=== PATIENT | female | born 1935 | race Caucasian/White ===

== ENCOUNTER 2017-05-19 14:51 | Inpatient (IN) | payer MEDICARE ==
[2017-05-19 14:51] VITALS: BMI 22.8
[2017-05-19] MEDS ORDERED: Sodium Chloride 0.9% 500 ML IV STA ×2 (15:34→17:21)
[2017-05-19] MEDS ORDERED: Albuterol-Ipratrop 3 mg / 0.5 (3 ml) UD IH STA ×2 (15:36→15:37)
--- NOTE | 2017-05-19 15:41 | ED PDOC ---
HPI: General Adult Time Seen by Provider: 05/19/17 15:24 Chief Complaint (Nursing): Abdominal Pain Chief Complaint (Provider): generalized weakness History Per: Patient, Family (son ) History/Exam Limitations: no limitations Onset/Duration Of Symptoms: Days (x 3) Additional History Per: Patient Additional Complaint(s): Katey Reeves is a 82 year old female, with an extensive previous medical history including CAD, COPD, CHF, hypertension and constipation, presents to the ED with complaints of generalized weakness associated with decreased appetite and bilateral leg swelling ongoing for 3 days. Son reports patient complaining of upper abdominal pain which started this morning and she reports has since resolved. She denies any chest pain, congestion, cough, diarrhea, vomiting, history of stroke, history of heart attacks, fever, chills, headache or new shortness of breath. Last bowel movement was reported to be 2 days ago. PMD: Dr. Burleson Past Medical History Reviewed: Historical Data, Nursing Documentation, Vital Signs Vital Signs: Last Vital Signs Temp 98.6 F 05/19/17 14:59 Pulse 79 05/19/17 17:10 Resp 18 05/19/17 17:10 BP 101/46 L 05/19/17 17:10 Pulse Ox 92 L 05/19/17 17:25 - Medical History PMH: Anemia, Anxiety, Arthritis, Asthma, CAD (with stenting), CHF, COPD, Depression, Diabetes, Emphysema, Gastritis, HTN, Hypothyroidism, Pneumonia, Rheumatoid Arthritis Denies: HIV, Hypercholesterolemia, Chronic Kidney Disease, Seizures - Surgical History Surgical History: Appendectomy - Family History Family History: States: Unknown Family Hx - Living Arrangements Living Arrangements: With Family - Social History Current smoker - smoking cessation education provided: No Alcohol: None Drugs: Denies - Home Medications Home Medications: Ambulatory Orders Medication Instructions Recorded Acetaminophen [Tylenol 325mg tab] 650 mg PO Q6 PRN #0 tab 05/21/16 Albuterol 0.083% [Albuterol 0.083% 2.5 mg INH Q4H PRN #0 neb 05/21/16 Inhal Ro (2.5 mg/3 ml) UD] Albuterol/Ipratropium [Duoneb 3 3 ml IH Q6H #0 neb 05/21/16 mg/0.5 mg (3 ml) UD] Albuterol/Ipratropium [Duoneb 3 3 ml INH RQID #0 neb 05/21/16 mg/0.5 mg (3 ml) UD] Docusate [Colace] 100 mg PO HS #0 cap 05/21/16 Doxazosin [Cardura] 8 mg PO HS #0 tab 05/21/16 Doxycycline Hyclate 100 mg PO Q12 #0 tablet 05/21/16 Fluticasone Propionate [Flonase] 1 spr MILAGROS BID #0 bottle 05/21/16 Furosemide [Lasix] 20 mg PO DAILY #0 tab 05/21/16 GlipiZIDE SR [Glucotrol XL] 2.5 mg PO DAILY #0 tab 05/21/16 Insulin Glargine, Recombina 15 unit SC HS #0 unit 05/21/16 [Lantus] Insulin Human Regular [HumuLIN R] 3 - 4 unit SC ACTID #0 ml 05/21/16 Irbesartan [Avapro] 300 mg PO DAILY #0 tablet 05/21/16 Montelukast [Singulair] 10 mg PO HS #0 tab 05/21/16 Mupirocin 2% Ointment [Bactroban 1 applic TOP BID #0 tube 05/21/16 Ointment] Nystatin [Nystop] 1 appl TOP BID #0 powder 05/21/16 Omeprazole [Prilosec] 40 mg PO DAILY PRN #0 capsule. 05/21/16 Prednisone 40 mg PO DAILY #0 tablet 05/21/16 Promethazine HCl/Codeine 5 ml PO Q6H PRN #0 syrup 05/21/16 [Prometh-Codein 6.25-10 mg/5 ml] SITagliptin [Januvia] 100 mg PO DAILY #0 tab 05/21/16 Temazepam [Restoril] 30 mg PO HS PRN #0 cap 05/21/16 Trazodone HCl 150 mg PO HS #0 tablet 05/21/16 Verapamil [Calan SR Tab] 240 mg PO DAILY #0 tab 05/21/16 - Allergies Allergies/Adverse Reactions: Allergies Allergy/AdvReac Type Severity Reaction Status Date / Time No Known Allergies Allergy Verified 03/04/16 15:46 Review of Systems ROS Statement: Except As Marked, All Systems Reviewed And Found Negative Constitutional: Positive for: Weakness (generalized ). Negative for: Fever, Chills Cardiovascular: Negative for: Chest Pain Respiratory: Negative for: Cough, Shortness of Breath, Sputum Gastrointestinal: Positive for: Abdominal Pain. Negative for: Nausea, Vomiting , Diarrhea Musculoskeletal: Positive for: Other (bilateral leg swelling ) Neurological: Positive for: Weakness. Negative for: Headache Physical Exam - Reviewed Nursing Documentation Reviewed: Yes Vital Signs Reviewed: Yes - Physical Exam Appears: Positive for: Uncomfortable Head Exam: Positive for: ATRAUMATIC, NORMAL INSPECTION, NORMOCEPHALIC Skin: Positive for: Normal Color, Warm, DRY Eye Exam: Positive for: EOMI, Normal appearance, PERRL ENT: Positive for: Normal ENT Inspection Neck: Positive for: Normal, Painless ROM Cardiovascular/Chest: Positive for: Regular Rate, Rhythm Respiratory: Positive for: Decreased Breath Sounds, Other (mild coarse breath sounds ) Gastrointestinal/Abdominal: Positive for: Normal Exam, Bowel Sounds, Soft. Negative for: Tenderness, Distended, Guarding, Rebound Back: Positive for: Normal Inspection. Negative for: L CVA Tenderness, R CVA Tenderness Extremity: Positive for: Normal ROM, Pedal Edema (1+ bilateral trace pitting ). Negative for: Tenderness, Deformity Neurologic/Psych: Positive for: Alert, photo printer II-XII, Oriented. Negative for: Facial Droop - Laboratory Results Result Diagrams: 05/19/17 16:00 05/19/17 15:55 Interpretation Of Abn Labs: 12.9 wbc, 2.2 wbc, bun elevated - ECG ECG: Positive for: Interpreted By Me, Viewed By Me ECG Rhythm: Positive for: Normal QRS, Normal ST Segment, Nonspecific Changes O2 Sat by Pulse Oximetry: 92 (RA) Pulse Ox Interpretation: Abnormal - Radiology X-Ray: Read By Radiologist X-Ray Interpretation: Infiltrates (L basilar infiltrate) - CT Scan/US ct Other Rad Studies (CT/US): Read By Radiologist Other Rad Interpretation: no acute - Progress ED Course And Treament: 1724: Stable. BP improved with fluids. Will give fluids carefully as pt. hx chf and multiple medically issues. Pt. needs admit for pneumonia, copd exacerbation, sepsis. 174: Spoke with Dr. Ko. Will admit tele. - Critical Care Total Time (In Min): 30 Documented Critical Care: Time excludes all time spent performint seperately billable procedures Medical Decision Making Medical Decision Making: Initial Impression: Generalized Weakness Initial plan: * ABG * CT head w/o contrast * EKG * B-type natriuretic peptide * Magnesium * Phosphorous * PTT * PT * CXR * Labs * Duo-neb * Duoneb * IV NS 500 ml at 500 ml/hr * Pepcid 20 mg IV * Solu-medrol 125 mg IV * Blood culture * Urine culture * Vital signs q 15 minutes * Peak flow pre/post treatment * Urinalysis * reevaluation Scribe Attestation: Documented by Bridget Lucero, acting as a scribe for Frandy Bowden MD. Provider Scribe Attestation: All medical record entries made by the Scribe were at my direction and personally dictated by me. I have reviewed the chart and agree that the record accurately reflects my personal performance of the history, physical exam, medical decision making, and the department course for this patient. I have also personally directed, reviewed, and agree with the discharge instructions and disposition. Disposition - Clinical Impression Clinical Impression: Sepsis, COPD exacerbation, Dehydration, Pneumonia - Patient ED Disposition Is Patient to be Admitted: Yes Counseled Patient/Family Regarding: Studies Performed, Diagnosis - Disposition Disposition Time: 17:49 Condition: FAIR - Pt Status Changed To: Hospital Disposition Of: Inpatient - Admit Certification Admit to Inpatient:: After my assessment, the patient will require hospitalization for at least two midnights. This is because of the severity of symptoms shown, intensity of services needed, and/or the medical risk in this patient being treated as an outpatient. - POA Present On Arrival: None
[2017-05-19] MEDS ORDERED: Albuterol-Ipratrop 3 mg / 0.5 (3 ml) UD ONE (15:49)
[2017-05-19 15:51] LABS: ABG ALLEN TEST YES; ARTERIAL BLOOD GAS HCO3 30.2 mmol/L (21-28); ARTERIAL BLOOD GAS PCO2 43 mm/Hg (35-45); ARTERIAL BLOOD GAS PH 7.47 (7.35-7.45); ARTERIAL BLOOD GAS PO2 80 mm/Hg (80-100); ARTERIAL BLOOD GAS TCO2 32.6 mmol/L (22-28)
[2017-05-19 16:08] LABS: BASO % 0.2 % (0.0-2.0); EOS # 0.2 K/uL (0.0-0.7); EOS % 1.6 % (0.0-4.0); HEMOGLOBIN 10.1 g/dL (12.0-16.0); LYMPH # 1.4 K/uL (1.0-4.3); LYMPH % 10.9 % (20.0-40.0); MEAN CELL VOLUME 88.1 fl (81.0-99.0); MEAN CORPUSCULAR HEMOGLOBIN 28.5 pg (27.0-31.0); MEAN CORPUSCULAR HGB CONC 32.4 g/dL (33.0-37.0); MEAN PLATELET VOLUME 8.2 fl (7.2-11.7); MONO # 0.7 K/uL (0.0-0.8); MONO % 5.2 % (0.0-10.0); NEUT # 10.6 K/uL (1.8-7.0); NEUT % 82.1 % (50.0-75.0); NRBC % 0.1 % (0.0-0.0); RBC 3.55 Mil/uL (3.80-5.20); WHITE BLOOD COUNT 12.9 K/uL (4.8-10.8)
--- NOTE | 2017-05-19 16:10 | RAD ---
HISTORY: Sepsis Patient COMPARISON: 05/15/2016 FINDINGS: LUNGS: Vague left basilar opacity, nonspecific. Rule out infiltrate. Surgical sutures are again identified in the upper right tram thorax, laterally. PLEURA: No significant pleural effusion identified, no pneumothorax apparent. CARDIOVASCULAR: Normal. OSSEOUS STRUCTURES: No significant abnormalities. VISUALIZED UPPER ABDOMEN: Normal. OTHER FINDINGS: None. IMPRESSION: Vague left basilar opacity, nonspecific. Followup advised. .
[2017-05-19 16:27] LABS: ALT/SGPT 424 U/L (9-52); AST/SGOT 76 U/L (14-36); BLOOD UREA NITROGEN 44 mg/dl (7-17); CALCIUM 8.9 mg/dL (8.4-10.2); GFR AFRICAN-AMERICAN > 60; GFR NON-AFRICAN AMERICAN 53; MAGNESIUM 1.8 MG/DL (1.6-2.3)
[2017-05-19 16:37] LABS: B-TYPE NATRIURETIC PEPTIDE 567 pg/ml (0-900)
--- NOTE | 2017-05-19 17:05 | CT ---
PROCEDURE: CT HEAD WITHOUT CONTRAST. HISTORY: headache COMPARISON: 11/07/2015 TECHNIQUE: Axial computed tomography images were obtained through the head/brain without intravenous contrast. Radiation dose: Total exam DLP = 1003.51 mGy-cm. This CT exam was performed using one or more of the following dose reduction techniques: Automated exposure control, adjustment of the mA and/or kV according to patient size, and/or use of iterative reconstruction technique. FINDINGS: HEMORRHAGE: No intracranial hemorrhage. BRAIN: No mass effect or edema. Age related senescent change. Stable lacune or infarcts. VENTRICLES: Unremarkable. No hydrocephalus. CALVARIUM: Unremarkable. PARANASAL SINUSES: Evidence of chronic left maxillary, sphenoid and ethmoid air cell disease. MASTOID AIR CELLS: Unremarkable as visualized. No inflammatory changes. OTHER FINDINGS: None. IMPRESSION: No acute intracranial abnormalities. No significant findings to account for the clinical presentation. No significant interval change compared to the prior examination(s).
[2017-05-19 17:07] LABS: PARTIAL THROMBOPLASTIN TIME 32.5 Seconds (25.6-37.1)
[2017-05-19] MEDS ORDERED: cefTRIAXone (Rocephin) 1 gm Inj IV ONE (17:18)
[2017-05-19] MEDS ORDERED: cefTRIAXone (Rocephin) 1 gm Inj ONE (17:48)
[2017-05-19] MEDS ORDERED: Albuterol 0.083% Inhal Sol (2.5 mg/3 mL) UD IH PRN (18:32)
[2017-05-19 19:25] LABS: VENOUS BLOOD GAS BASE EXCESS 5.5 mmol/L (0.0-2.0); VENOUS BLOOD GAS PCO2 48 mmHg (40-60); VENOUS BLOOD GAS PO2 50 mm/Hg (30-55); VENOUS BLOOD PH 7.42 (7.32-7.43)
--- NOTE | 2017-05-19 19:37 | CP.PCM.HP ---
History of Present Illness - History of Present Illness History of Present Illness: 82 yo female with history of COPD, HTN, DM2 and CHF came in complaining of loss of appetite, upper abdominal pain and generalized weakness since 5 days ago. Denied chest pain, SOB, fever or chills. Also denied nausea, vomiting or diarrhea. Present on Admission - Present on Admission Any Indicators Present on Admission: No History of DVT/PE: No History of Uncontrolled Diabetes: No Urinary Catheter: No Decubitus Ulcer Present: No Review of Systems - Review of Systems All systems: reviewed and no additional remarkable complaints except (aside from those mentioned above, 12 point system review were negative by me) Past Patient History - Infectious Disease Hx of Infectious Diseases: None - Tetanus Immunizations Tetanus Immunization: Unknown - Past Medical History & Family History Past Medical History?: Yes Past Family History: Reviewed and not pertinent - Past Social History Smoking Status: Former Smoker Alcohol: None Drugs: Denies Home Situation {Lives}: With Family - CARDIAC Hx Congestive Heart Failure: Yes Hx Hypercholesterolemia: No Hx Hypertension: Yes - PULMONARY Hx Asthma: Yes Hx Chronic Obstructive Pulmonary Disease (COPD): Yes Hx Emphysema: Yes Hx Pneumonia: Yes - NEUROLOGICAL Hx Seizures: No - HEENT Hx HEENT Problems: No - RENAL Hx Chronic Kidney Disease: No - ENDOCRINE/METABOLIC Hx Hypothyroidism: Yes - HEMATOLOGICAL/ONCOLOGICAL Hx Anemia: Yes Hx Human Immunodeficiency Virus (HIV): No - INTEGUMENTARY Other/Comment: sacral decubitus present on admission with excoriation to surrounding skin, excoriation also noted to vaginal area - MUSCULOSKELETAL/RHEUMATOLOGICAL Hx Arthritis: Yes Hx Rheumatoid Arthritis: Yes - GASTROINTESTINAL Hx Gastritis: Yes - GENITOURINARY/GYNECOLOGICAL Hx Uterine Cancer: Yes Hx Urinary Tract Infection: Yes - PSYCHIATRIC Hx Anxiety: Yes Hx Depression: Yes - SURGICAL HISTORY Hx Appendectomy: Yes - ANESTHESIA Hx Anesthesia: Yes Hx Anesthesia Reactions: No Hx Malignant Hyperthermia: No Meds Allergies/Adverse Reactions: Allergies Allergy/AdvReac Type Severity Reaction Status Date / Time No Known Allergies Allergy Verified 03/04/16 15:46 Physical Exam - Constitutional Appears: No Acute Distress - Head Exam Head Exam: ATRAUMATIC - Eye Exam Eye Exam: absent: Scleral icterus - ENT Exam ENT Exam: Mucous Membranes Moist - Neck Exam Neck exam: Negative for: Meningismus - Respiratory Exam Respiratory Exam: absent: Rhonchi, Wheezes, Respiratory Distress - Cardiovascular Exam Cardiovascular Exam: REGULAR RHYTHM, +S1, +S2 - GI/Abdominal Exam GI & Abdominal Exam: Distended, Soft. absent: Tenderness - Rectal Exam Rectal Exam: Deferred - Extremities Exam Extremities exam: Positive for: pedal edema - Back Exam Back exam: absent: tenderness - Neurological Exam Neurological exam: Alert, Oriented x3 - Psychiatric Exam Psychiatric exam: Normal Affect - Skin Skin Exam: Dry, Intact Results - Vital Signs Recent Vital Signs: Last Vital Signs Temp 98.6 F 05/19/17 14:59 Pulse 82 05/19/17 18:13 Resp 16 05/19/17 18:13 BP 113/57 L 05/19/17 18:13 Pulse Ox 100 05/19/17 18:13 - Labs Result Diagrams: 05/19/17 16:00 05/19/17 15:55 Labs: Laboratory Results - last 24 hr 05/19/17 19:22 pO2 50 VBG pH 7.42 VBG pCO2 48 VBG HCO3 28.9 VBG Total CO2 32.6 H VBG O2 Sat (Calc) 90.7 H VBG Base Excess 5.5 H VBG Potassium 4.6 Sodium 135.0 Chloride 102.0 Glucose 262 H Lactate 1.0 FiO2 21.0 Venous Blood Potassium 4.6 Assessment & Plan - Assessment and Plan (Free Text) Assessment: 82 yo female with history of COPD, HTN, DM2 and CHF came in complaining of loss of appetite, upper abdominal pain and generalized weakness since 5 days ago. Denied chest pain, SOB, fever or chills. Also denied nausea, vomiting or diarrhea. 1. Elevated LFTs admit to telemetry repeat LFTs in am CT scan of abdomen hepatitis panel 2. COPD asymptomatic Duoneb q 4hrs prn for SOB/wheezing 3. DM2 BS uncontrolled accuchek ACHS with low Lispro coverage Levemir 15 units SC HS 4. HTN BP controlled continue Cardura and Verapamil 5. DVT Prophylaxis Lovenox 40mg SC daily
[2017-05-19 20:19] LABS: SQUAMOUS EPITHIAL 1 /hpf (0-5); URINE BACTERIA RARE (<OCC); URINE BILIRUBIN NEGATIVE (NEGATIVE); URINE BLOOD NEGATIVE (NEGATIVE); URINE CLARITY SLIGHTY-CLOUDY (Clear); URINE COLOR YELLOW (YELLOW); URINE GLUCOSE (UA) 50 mg/dL (Normal); URINE HYALINE CAST 0-2 /hpf (0-2); URINE LEUKOCYTE ESTERASE LARGE Leu/uL (Negative); URINE NITRATE NEGATIVE (NEGATIVE); URINE PROTEIN NEGATIVE (NEGATIVE); URINE UROBILINOGEN 0.2-1.0 mg/dL (0.2-1.0)
--- NOTE | 2017-05-19 21:51 | CT ---
EXAM: CT Abdomen and Pelvis Without Intravenous Contrast CLINICAL HISTORY: 82 years old, female; Signs and symptoms; Bloating; Additional info: Enlarging abdomen with elevated lfts. Sent physician. Doc. And labs TECHNIQUE: Axial computed tomography images of the abdomen and pelvis without intravenous contrast. This CT exam was performed using one or more of the following dose reduction techniques: automated exposure control, adjustment of the mA and/or kV according to patient size, and/or use of iterative reconstruction technique. Coronal and sagittal reformatted images were created and reviewed. EXAM DATE/TIME: 05/19/2017 8:14 PM COMPARISON: CT ABDOMEN AND PELVI 09/08/2008 1:17:11 PM FINDINGS: Lower thorax: The heart is mildly enlarged. There are coronary calcifications. There is bibasilar airspace disease. Air is a small right effusion ABDOMEN: Liver: Liver is heterogeneous. There is a cyst in the region of the gila hepatis. Right adrenal is unremarkable. There is thickening of the left adrenal. Gallbladder and bile ducts: Gallbladder is distended, 10 cm in length. There are small gallstones. Common bile duct is prominent. There is pericholecystic edema. Pancreas: Pancreas is atrophic. Spleen: unremarkable Adrenals: See above. Kidneys and ureters: There are bilateral renal cysts.Kidneys and ureters are otherwise unremarkable. Stomach and bowel: Stomach is almost empty. Rotation is normal. Proximal and mid small bowel is dilated with air-fluid levels. Distal small bowel is decompressed. Exact transition point is difficult to determine. Terminal ileum is unremarkable.Appendix is not visualized. Colon is incompletely distended which limits evaluation. There is diverticulosis. Appendix: See stomach and bowel PELVIS: Bladder: unremarkable Reproductive: Uterus is absent. There are no adnexal masses. ABDOMEN and PELVIS: Intraperitoneal space: There is no free air.There is no free fluid. Bones/joints: Bony structures are osteopenic.There are degenerative changes in the osseus structures. There is compression deformity at L2 Soft tissues: There is a fat containing left lower abdominal wall ventral hernia. There is a small fat containing umbilical hernia. Vasculature: Atherosclerotic calcifications. There are calcified phleboliths. Lymph nodes: There is no pathologic adenopathy. IMPRESSION: Bibasal or air space disease with small right effusion; limited evaluation of the liver due to the lack of contrast, small hepatic cyst; distended gallbladder with small stones and pericholecystic fluid suggest cholecystitis; ileus versus early small bowel obstruction; an age-indeterminate L2 compression fracture; mild cardiomegaly and atherosclerotic disease Additional findings as described above.
[2017-05-19] MEDS: Albuterol-Ipratrop 3 mg / 0.5 (3 ml) UD IH PRN (22:41)
[2017-05-19] MEDS: Insulin Detemir 100 Units/ml Inj SC SCH (23:00)
[2017-05-20] MEDS: Albuterol-Ipratrop 3 mg / 0.5 (3 ml) UD IH PRN (07:09)
[2017-05-20 07:10] LABS: HEMOGLOBIN 9.9 g/dL (12.0-16.0); LYMPH # 0.6 K/uL (1.0-4.3); LYMPH % 3.3 % (20.0-40.0); MEAN CELL VOLUME 88.6 fl (81.0-99.0); MEAN CORPUSCULAR HEMOGLOBIN 29.1 pg (27.0-31.0); MEAN CORPUSCULAR HGB CONC 32.8 g/dL (33.0-37.0); MEAN PLATELET VOLUME 7.9 fl (7.2-11.7); MONO # 0.1 K/uL (0.0-0.8); MONO % 0.8 % (0.0-10.0); NEUT # 16.9 K/uL (1.8-7.0); NEUT % 95.9 % (50.0-75.0); PLATELET COUNT 362 K/uL (130-400); RBC 3.39 Mil/uL (3.80-5.20); RED CELL DISTRIBUTION WIDTH 15.3 % (11.5-14.5); WHITE BLOOD COUNT 17.7 K/uL (4.8-10.8)
[2017-05-20 07:16] LABS: ALT/SGPT 351 U/L (9-52); AST/SGOT 46 U/L (14-36); BILIRUBIN,DIRECT 0.4 mg/ml (0.0-0.4); BLOOD UREA NITROGEN 31 mg/dl (7-17); CALCIUM 8.7 mg/dL (8.4-10.2); GFR AFRICAN-AMERICAN > 60; GFR NON-AFRICAN AMERICAN > 60
--- NOTE | 2017-05-20 07:32 | CARD ---
APPROVED REPORT EKG Measurement Heart [id number] <Conclusion> Normal sinus rhythm Incomplete right bundle branch block ST & T wave abnormality, consider anterior ischemia Abnormal ECG
--- NOTE | 2017-05-20 09:21 | CP.PCM.CON ---
History of Present Illness - History of Present Illness History of Present Illness: Surgery Consult note. Dr. Connolly 82yo F with PMHx of COPD, HTN, DM, CHF here for evaluation of vague abdominal pain and generalized weakness. General surgery consulted for abdominal pain. Patient reports abdominal pain for 1.5 days located in the right upper quadrant. Currently, she states that her abdominal pain has resolved. She denies N/V/D. Last BM 2 days ago. Reports chronic constipation. Denies any blood in stool or dark stools. Denies any fevers or chills. No CP/SOB. No headaches. Last meal was today morning (pancakes, eggs). She states that she has had multiple similar pains in the past that have spontaneously resolved. PMHx: COPD, HTN, DM, CHF PSHx: Appendicitis, Hysterectomy, VATS Family Hx: Vaginal [place] Social Hx: Lives in [place] with . Former Smoker, denies ETOH, denies illicit drugs Review of Systems - Review of Systems All systems: reviewed and no additional remarkable complaints except - Constitutional Constitutional: absent: Chills, Fever - EENT Ears: absent: Dizziness - Cardiovascular Cardiovascular: absent: Chest Pain, Diaphoresis - Respiratory Respiratory: absent: Cough - Gastrointestinal Gastrointestinal: Constipation. absent: Nausea, Vomiting - Genitourinary Genitourinary: absent: Dysuria Past Patient History - Infectious Disease Hx of Infectious Diseases: None - Tetanus Immunizations Tetanus Immunization: Unknown - Past Medical History & Family History Past Medical History?: Yes - Past Social History Smoking Status: Never Smoked - CARDIAC Hx Congestive Heart Failure: Yes Hx Hypercholesterolemia: No Hx Hypertension: Yes - PULMONARY Hx Asthma: Yes Hx Chronic Obstructive Pulmonary Disease (COPD): Yes Hx Emphysema: Yes Hx Pneumonia: Yes - NEUROLOGICAL Hx Seizures: No - HEENT Hx HEENT Problems: No - RENAL Hx Chronic Kidney Disease: No - ENDOCRINE/METABOLIC Hx Diabetes Mellitus Type 2: Yes Hx Hypothyroidism: Yes - HEMATOLOGICAL/ONCOLOGICAL Hx AIDS: No Hx Anemia: Yes Hx Human Immunodeficiency Virus (HIV): No - INTEGUMENTARY Hx Dermatological Problems: Yes Other/Comment: Sacral redness. right buttock wound. left buttock redness - MUSCULOSKELETAL/RHEUMATOLOGICAL Hx Arthritis: Yes Hx Falls: No Hx Rheumatoid Arthritis: Yes - GASTROINTESTINAL Hx Gastritis: Yes - GENITOURINARY/GYNECOLOGICAL Hx Uterine Cancer: Yes Hx Urinary Tract Infection: Yes - PSYCHIATRIC Hx Anxiety: Yes Hx Depression: Yes Hx Substance Use: No - SURGICAL HISTORY Hx Appendectomy: Yes - ANESTHESIA Hx Anesthesia: Yes Hx Anesthesia Reactions: No Hx Malignant Hyperthermia: No Meds Allergies/Adverse Reactions: Allergies Allergy/AdvReac Type Severity Reaction Status Date / Time No Known Allergies Allergy Verified 03/04/16 15:46 - Medications Medications: Current Medications Albuterol Sulfate (Albuterol 0.083% Inhal Ro (2.5 Mg/3 Ml) Ud) 2.5 mg IH Q4H PRN PRN Reason: Shortness of Breath Albuterol/Ipratropium (Duoneb 3 Mg/0.5 Mg (3 Ml) Ud) 3 ml IH Q6H PRN PRN Reason: Shortness of Breath Last Admin: 05/20/17 07:09 Dose: 3 ml Cyproheptadine HCl (Periactin) 4 mg PO BID [facility] Doxazosin Mesylate (Cardura) 8 mg PO DAILY [facility] Enoxaparin Sodium (Lovenox) 30 mg SC DAILY [facility] PRN Reason: Protocol Furosemide (Lasix) 20 mg PO DAILY [facility] Glipizide (Glucotrol Xl) 5 mg PO DAILY [facility] Piperacillin Sod/Tazobactam (Sod 3.375 gm/ Sodium Chloride) 100 mls @ 100 mls/ hr IVPB Q6 [facility] Sodium Chloride (Sodium Chloride 0.9%) 1,000 mls @ 80 mls/hr IV .[id number] [facility] Stop: 05/21/17 08:37 Insulin Detemir (Levemir) 15 units SC HS [facility] Last Admin: 05/19/17 23:00 Dose: 15 u Insulin Human Lispro (Humalog) 0 units SC ACHS [facility] PRN Reason: Protocol Losartan Potassium (Cozaar) 100 mg PO DAILY [facility] Montelukast Sodium (Singulair) 10 mg PO HS [facility] Last Admin: 05/19/17 23:21 Dose: 10 mg Prednisone (Prednisone Tab) 40 mg PO DAILY [facility] Temazepam (Restoril) 30 mg PO HS [facility] Last Admin: 05/19/17 23:29 Dose: 30 mg Trazodone HCl (Desyrel) 150 mg PO HS [facility] Last Admin: 05/19/17 23:00 Dose: 150 mg Verapamil HCl (Calan Sr Tab) 240 mg PO DAILY [facility] Physical Exam - Constitutional Appears: Well, No Acute Distress - Head Exam Head Exam: ATRAUMATIC, NORMAL INSPECTION, NORMOCEPHALIC - Eye Exam Eye Exam: EOMI - ENT Exam ENT Exam: Mucous Membranes Moist - Respiratory Exam Respiratory Exam: NORMAL BREATHING PATTERN - GI/Abdominal Exam GI & Abdominal Exam: Distended (mild distention), Soft Additional comments: Non tender. No rebound. No Kumar's - Extremities Exam Extremities exam: Positive for: normal inspection. Negative for: calf tenderness - Neurological Exam Neurological exam: Alert, Oriented x3 - Skin Skin Exam: Dry, Intact, Normal Color, Warm Results - Vital Signs Recent Vital Signs: Last Vital Signs Temp 98.5 F 05/20/17 08:24 Pulse 94 H 05/20/17 08:24 Resp 18 05/20/17 08:24 BP 131/68 05/20/17 08:24 Pulse Ox 97 05/20/17 08:24 - Labs Result Diagrams: 05/20/17 05:15 05/20/17 05:15 Labs: Laboratory Results - last 24 hr 05/19/17 05/19/17 05/19/17 19:17 19:22 20:06 WBC RBC Hgb Hct MCV MCH MCHC RDW Plt Count MPV Neut % (Auto) Lymph % (Auto) [place] % (Auto) Eos % (Auto) Baso % (Auto) Neut # Lymph # [place] # Eos # Baso # pO2 50 VBG pH 7.42 VBG pCO2 48 VBG HCO3 28.9 VBG Total CO2 32.6 H VBG O2 Sat (Calc) 90.7 H VBG Base Excess 5.5 H VBG Potassium 4.6 Sodium 135.0 Chloride 102.0 Glucose 262 H Lactate 1.0 FiO2 21.0 Potassium Carbon Dioxide Anion Gap BUN Creatinine Est GFR ( Amer) Est GFR (Non-Af Amer) POC Glucose (mg/dL) 283 H Random Glucose Calcium Total Bilirubin Direct Bilirubin AST ALT Alkaline Phosphatase NT-Pro-B Natriuret Pep Total Protein Albumin Globulin Albumin/Globulin Ratio TSH 3rd Generation Venous Blood Potassium 4.6 Urine Color Yellow Urine Clarity Slighty-cloudy Urine pH 5.0 Ur Specific [place] 1.017 Urine Protein Negative Urine Glucose (UA) 50 Urine Ketones Trace Urine Blood Negative Urine Nitrate Negative Urine Bilirubin Negative Urine Urobilinogen 0.2-1.0 Ur Leukocyte Esterase Large Urine Microscopic WBC 68 H Ur Squamous Epith Cells 1 Urine Bacteria Rare Hyaline Casts 0-2 05/19/17 05/19/17 05/20/17 20:15 22:53 05:15 WBC 17.7 H RBC 3.39 L Hgb 9.9 L Hct 30.0 L MCV 88.6 MCH 29.1 MCHC 32.8 L RDW 15.3 H Plt Count 362 MPV 7.9 Neut % (Auto) 95.9 H Lymph % (Auto) 3.3 L [place] % (Auto) 0.8 Eos % (Auto) 0.0 Baso % (Auto) 0.0 Neut # 16.9 H Lymph # 0.6 L [place] # 0.1 Eos # 0.0 Baso # 0.0 pO2 VBG pH VBG pCO2 VBG HCO3 VBG Total CO2 VBG O2 Sat (Calc) VBG Base Excess VBG Potassium Sodium Chloride Glucose Lactate FiO2 Potassium Carbon Dioxide Anion Gap BUN Creatinine Est GFR ( Amer) Est GFR (Non-Af Amer) POC Glucose (mg/dL) 307 H Random Glucose Calcium Total Bilirubin Direct Bilirubin AST ALT Alkaline Phosphatase NT-Pro-B Natriuret Pep 500 Total Protein Albumin Globulin Albumin/Globulin Ratio TSH 3rd Generation Venous Blood Potassium Urine Color Urine Clarity Urine pH Ur Specific [place] Urine Protein Urine Glucose (UA) Urine Ketones Urine Blood Urine Nitrate Urine Bilirubin Urine Urobilinogen Ur Leukocyte Esterase Urine Microscopic WBC Ur Squamous Epith Cells Urine Bacteria Hyaline Casts 05/20/17 05/20/17 05:15 05:18 WBC RBC Hgb Hct MCV MCH MCHC RDW Plt Count MPV Neut % (Auto) Lymph % (Auto) [place] % (Auto) Eos % (Auto) Baso % (Auto) Neut # Lymph # [place] # Eos # Baso # pO2 VBG pH VBG pCO2 VBG HCO3 VBG Total CO2 VBG O2 Sat (Calc) VBG Base Excess VBG Potassium Sodium 141 Chloride 102 Glucose Lactate FiO2 Potassium 4.9 Carbon Dioxide 31 H Anion Gap 13 BUN 31 H Creatinine 0.8 Est GFR ( Amer) > 60 Est GFR (Non-Af Amer) > 60 POC Glucose (mg/dL) 266 H Random Glucose 270 H Calcium 8.7 Total Bilirubin 0.4 Direct Bilirubin 0.4 AST 46 H D ALT 351 H Alkaline Phosphatase 129 H NT-Pro-B Natriuret Pep Total Protein 5.9 L Albumin 3.0 L Globulin 3.0 Albumin/Globulin Ratio 1.0 TSH 3rd Generation 0.40 L Venous Blood Potassium Urine Color Urine Clarity Urine pH Ur Specific [place] Urine Protein Urine Glucose (UA) Urine Ketones Urine Blood Urine Nitrate Urine Bilirubin Urine Urobilinogen Ur Leukocyte Esterase Urine Microscopic WBC Ur Squamous Epith Cells Urine Bacteria Hyaline Casts Assessment & Plan - Assessment and Plan (Free Text) Assessment: 82yo F with PMHx of HTN, COPD, DM, CHF. General surgery consulted for abdominal pain. - CT with distended gallbladder with small stones - Leukocytosis, afebrile - f/u Abd US - f/u HIDA scan - Continue ABX - CBC/CMP tomorrow AM - Continue IVF Discussed case with Dr. Mohsen Joe PGY1 surgery pager: [phone]
[2017-05-20] MEDS: Verapamil 240 mg ER Tab PO SCH ×2 (09:31→09:55)
[2017-05-20] MEDS: GlipiZIDE 5 mg SR Tab PO SCH ×2 (09:34→09:55)
[2017-05-20] MEDS: Enoxaparin 30 mg Syringe SC SCH (09:39)
--- NOTE | 2017-05-20 09:41 | CP.PCM.CON ---
History of Present Illness - History of Present Illness History of Present Illness: 82 YR OLD FEMALE REFERRED FOR PULMONARY EVALUATION PRIOR TO GALLBLADDER SURGERY.THE PTB IS ADMITTED BECAUSE OF ABDOMINAL PAIN AND DIAGNOSED WITH GALLBLADDER DISEASE.SHE INDICATES THAT ABDOMINAL PAIN HAS IMPROVED. C/O COUGH AND DIFFICULTY EXPECTORATING SPUTUM PMX-COPD,HTN,DM,CHF,HYSTERECTOMY,APPENDECTOMY,VATS FORMER SMOKER--QUIT IN 2008 Past Patient History - Infectious Disease Hx of Infectious Diseases: None - Tetanus Immunizations Tetanus Immunization: Unknown - Past Medical History & Family History Past Medical History?: Yes - Past Social History Smoking Status: Never Smoked - CARDIAC Hx Congestive Heart Failure: Yes Hx Hypercholesterolemia: No Hx Hypertension: Yes - PULMONARY Hx Asthma: Yes Hx Chronic Obstructive Pulmonary Disease (COPD): Yes Hx Emphysema: Yes Hx Pneumonia: Yes - NEUROLOGICAL Hx Seizures: No - HEENT Hx HEENT Problems: No - RENAL Hx Chronic Kidney Disease: No - ENDOCRINE/METABOLIC Hx Diabetes Mellitus Type 2: Yes Hx Hypothyroidism: Yes - HEMATOLOGICAL/ONCOLOGICAL Hx AIDS: No Hx Anemia: Yes Hx Human Immunodeficiency Virus (HIV): No - INTEGUMENTARY Hx Dermatological Problems: Yes Other/Comment: Sacral redness. right buttock wound. left buttock redness - MUSCULOSKELETAL/RHEUMATOLOGICAL Hx Arthritis: Yes Hx Falls: No Hx Rheumatoid Arthritis: Yes - GASTROINTESTINAL Hx Gastritis: Yes - GENITOURINARY/GYNECOLOGICAL Hx Uterine Cancer: Yes Hx Urinary Tract Infection: Yes - PSYCHIATRIC Hx Anxiety: Yes Hx Depression: Yes Hx Substance Use: No - SURGICAL HISTORY Hx Appendectomy: Yes - ANESTHESIA Hx Anesthesia: Yes Hx Anesthesia Reactions: No Hx Malignant Hyperthermia: No Meds Allergies/Adverse Reactions: Allergies Allergy/AdvReac Type Severity Reaction Status Date / Time No Known Allergies Allergy Verified 03/04/16 15:46 - Medications Medications: Current Medications Albuterol Sulfate (Albuterol 0.083% Inhal Ro (2.5 Mg/3 Ml) Ud) 2.5 mg IH Q4H PRN PRN Reason: Shortness of Breath Albuterol/Ipratropium (Duoneb 3 Mg/0.5 Mg (3 Ml) Ud) 3 ml IH Q6H PRN PRN Reason: Shortness of Breath Last Admin: 05/20/17 07:09 Dose: 3 ml Cyproheptadine HCl (Periactin) 4 mg PO BID [facility] Last Admin: 05/20/17 09:34 Dose: Not Given Doxazosin Mesylate (Cardura) 8 mg PO DAILY [facility] Last Admin: 05/20/17 09:33 Dose: Not Given Enoxaparin Sodium (Lovenox) 30 mg SC DAILY [facility] PRN Reason: Protocol Furosemide (Lasix) 20 mg PO DAILY [facility] Last Admin: 05/20/17 09:34 Dose: Not Given Glipizide (Glucotrol Xl) 5 mg PO DAILY [facility] Last Admin: 05/20/17 09:34 Dose: Not Given Piperacillin Sod/Tazobactam (Sod 3.375 gm/ Sodium Chloride) 100 mls @ 100 mls/ hr IVPB Q6 [facility] Sodium Chloride (Sodium Chloride 0.9%) 1,000 mls @ 80 mls/hr IV .[id number] [facility] Stop: 05/21/17 08:37 Insulin Detemir (Levemir) 15 units SC [facility] Last Admin: 05/19/17 23:00 Dose: 15 u Insulin Human Lispro (Humalog) 0 units SC [facility] PRN Reason: Protocol Losartan Potassium (Cozaar) 100 mg PO DAILY [facility] Last Admin: 05/20/17 09:33 Dose: Not Given Montelukast Sodium (Singulair) 10 mg PO [facility] Last Admin: 05/19/17 23:21 Dose: 10 mg Prednisone (Prednisone Tab) 40 mg PO DAILY [facility] Last Admin: 05/20/17 09:34 Dose: Not Given Temazepam (Restoril) 30 mg PO HS [facility] Last Admin: 05/19/17 23:29 Dose: 30 mg Trazodone HCl (Desyrel) 150 mg PO [facility] Last Admin: 05/19/17 23:00 Dose: 150 mg Verapamil HCl (Calan Sr Tab) 240 mg PO DAILY [facility] Last Admin: 05/20/17 09:31 Dose: Not Given Physical Exam - Constitutional Appears: No Acute Distress - Head Exam Head Exam: ATRAUMATIC, NORMAL INSPECTION, NORMOCEPHALIC - Eye Exam Eye Exam: EOMI, Normal appearance, PERRL Pupil Exam: NORMAL ACCOMODATION, PERRL - ENT Exam ENT Exam: Mucous Membranes Moist, Normal Exam - Neck Exam Neck exam: Positive for: Normal Inspection - Respiratory Exam Respiratory Exam: Decreased Breath Sounds, Prolonged Expiratory Phase, Rales, NORMAL BREATHING PATTERN - Cardiovascular Exam Cardiovascular Exam: REGULAR RHYTHM - GI/Abdominal Exam GI & Abdominal Exam: Normal Bowel Sounds, Soft. absent: Tenderness - Rectal Exam Rectal Exam: NORMAL INSPECTION - Extremities Exam Extremities exam: Positive for: normal inspection, pedal edema Additional comments: TRACE PEDAL EDEMA - Back Exam Back exam: NORMAL INSPECTION - Neurological Exam Neurological exam: Alert, CN II-XII Intact, Normal Gait, Oriented x3, Reflexes Normal - Psychiatric Exam Psychiatric exam: Normal Affect, Normal Mood - Skin Skin Exam: Dry, Intact, Normal Color, Warm Results - Vital Signs Recent Vital Signs: Last Vital Signs Temp 98.5 F 05/20/17 08:24 Pulse 94 H 05/20/17 09:33 Resp 18 05/20/17 08:24 BP 131/68 05/20/17 09:34 Pulse Ox 97 05/20/17 08:24 - Labs Result Diagrams: 05/20/17 05:15 05/20/17 05:15 Labs: Laboratory Results - last 24 hr 05/19/17 05/19/17 05/19/17 19:17 19:22 20:06 WBC RBC Hgb Hct MCV MCH MCHC RDW Plt Count MPV Neut % (Auto) Lymph % (Auto) [place] % (Auto) Eos % (Auto) Baso % (Auto) Neut # Lymph # [place] # Eos # Baso # pO2 50 VBG pH 7.42 VBG pCO2 48 VBG HCO3 28.9 VBG Total CO2 32.6 H VBG O2 Sat (Calc) 90.7 H VBG Base Excess 5.5 H VBG Potassium 4.6 Sodium 135.0 Chloride 102.0 Glucose 262 H Lactate 1.0 FiO2 21.0 Potassium Carbon Dioxide Anion Gap BUN Creatinine Est GFR ( Amer) Est GFR (Non-Af Amer) POC Glucose (mg/dL) 283 H Random Glucose Calcium Total Bilirubin Direct Bilirubin AST ALT Alkaline Phosphatase NT-Pro-B Natriuret Pep Total Protein Albumin Globulin Albumin/Globulin Ratio TSH 3rd Generation Venous Blood Potassium 4.6 Urine Color Yellow Urine Clarity Slighty-cloudy Urine pH 5.0 Ur Specific [place] 1.017 Urine Protein Negative Urine Glucose (UA) 50 Urine Ketones Trace Urine Blood Negative Urine Nitrate Negative Urine Bilirubin Negative Urine Urobilinogen 0.2-1.0 Ur Leukocyte Esterase Large Urine Microscopic WBC 68 H Ur Squamous Epith Cells 1 Urine Bacteria Rare Hyaline Casts 0-2 05/19/17 05/19/17 05/20/17 20:15 22:53 05:15 WBC 17.7 H RBC 3.39 L Hgb 9.9 L Hct 30.0 L MCV 88.6 MCH 29.1 MCHC 32.8 L RDW 15.3 H Plt Count 362 MPV 7.9 Neut % (Auto) 95.9 H Lymph % (Auto) 3.3 L [place] % (Auto) 0.8 Eos % (Auto) 0.0 Baso % (Auto) 0.0 Neut # 16.9 H Lymph # 0.6 L [place] # 0.1 Eos # 0.0 Baso # 0.0 pO2 VBG pH VBG pCO2 VBG HCO3 VBG Total CO2 VBG O2 Sat (Calc) VBG Base Excess VBG Potassium Sodium Chloride Glucose Lactate FiO2 Potassium Carbon Dioxide Anion Gap BUN Creatinine Est GFR ( Amer) Est GFR (Non-Af Amer) POC Glucose (mg/dL) 307 H Random Glucose Calcium Total Bilirubin Direct Bilirubin AST ALT Alkaline Phosphatase NT-Pro-B Natriuret Pep 500 Total Protein Albumin Globulin Albumin/Globulin Ratio TSH 3rd Generation Venous Blood Potassium Urine Color Urine Clarity Urine pH Ur Specific [place] Urine Protein Urine Glucose (UA) Urine Ketones Urine Blood Urine Nitrate Urine Bilirubin Urine Urobilinogen Ur Leukocyte Esterase Urine Microscopic WBC Ur Squamous Epith Cells Urine Bacteria Hyaline Casts 05/20/17 05/20/17 05:15 05:18 WBC RBC Hgb Hct MCV MCH MCHC RDW Plt Count MPV Neut % (Auto) Lymph % (Auto) [place] % (Auto) Eos % (Auto) Baso % (Auto) Neut # Lymph # [place] # Eos # Baso # pO2 VBG pH VBG pCO2 VBG HCO3 VBG Total CO2 VBG O2 Sat (Calc) VBG Base Excess VBG Potassium Sodium 141 Chloride 102 Glucose Lactate FiO2 Potassium 4.9 Carbon Dioxide 31 H Anion Gap 13 BUN 31 H Creatinine 0.8 Est GFR ( Amer) > 60 Est GFR (Non-Af Amer) > 60 POC Glucose (mg/dL) 266 H Random Glucose 270 H Calcium 8.7 Total Bilirubin 0.4 Direct Bilirubin 0.4 AST 46 H D ALT 351 H Alkaline Phosphatase 129 H NT-Pro-B Natriuret Pep Total Protein 5.9 L Albumin 3.0 L Globulin 3.0 Albumin/Globulin Ratio 1.0 TSH 3rd Generation 0.40 L Venous Blood Potassium Urine Color Urine Clarity Urine pH Ur Specific [place] Urine Protein Urine Glucose (UA) Urine Ketones Urine Blood Urine Nitrate Urine Bilirubin Urine Urobilinogen Ur Leukocyte Esterase Urine Microscopic WBC Ur Squamous Epith Cells Urine Bacteria Hyaline Casts Assessment & Plan - Assessment and Plan (Free Text) Assessment: ACUTE CHOLECYSTITIS COPD WITH MUCUS PLUGGING OF AIRWAYS LLL PULMONARY INFILTERATE?PNEUMONIA Plan: [facility] ORDERED NO PULMONARY CONTRAINDICATION FOR GALLBLADDER SURGERY WILL GIVE O2 AND BRONCHODILATOR RX SUGGEST CARDIAC EVAL/CLEARANCE
--- NOTE | 2017-05-20 09:51 | CP.PCM.PN ---
Subjective - Date & Time of Evaluation Date of Evaluation: 05/20/17 Time of Evaluation: 11:00 - Subjective Subjective: Patient was seen and evaluated bedside. Sitting in chair in NAD. Feeling better , abdominal pain resolved. Hemodynamically stable, afebrile. No acute issues overnight. Objective - Vital Signs/Intake and Output Vital Signs (last 24 hours): Temp Pulse Resp BP Pulse Ox 98.5 F 94 H 18 131/68 97 05/20/17 08:24 05/20/17 09:33 05/20/17 08:24 05/20/17 09:34 05/20/17 08:24 - Medications Medications: Current Medications Acetylcysteine (Acetylcysteine 20%) 2 ml INH RBID [facility] Albuterol Sulfate (Albuterol 0.083% Inhal Ro (2.5 Mg/3 Ml) Ud) 2.5 mg IH Q4H PRN PRN Reason: Shortness of Breath Albuterol/Ipratropium (Duoneb 3 Mg/0.5 Mg (3 Ml) Ud) 3 ml IH Q4 [facility] Cyproheptadine HCl (Periactin) 4 mg PO BID [facility] Last Admin: 05/20/17 09:34 Dose: Not Given Doxazosin Mesylate (Cardura) 8 mg PO DAILY [facility] Last Admin: 05/20/17 09:33 Dose: Not Given Enoxaparin Sodium (Lovenox) 30 mg SC DAILY [facility] PRN Reason: Protocol Last Admin: 05/20/17 09:39 Dose: 30 mg Furosemide (Lasix) 20 mg PO DAILY [facility] Last Admin: 05/20/17 09:34 Dose: Not Given Glipizide (Glucotrol Xl) 5 mg PO DAILY [facility] Last Admin: 05/20/17 09:34 Dose: Not Given Piperacillin Sod/Tazobactam (Sod 3.375 gm/ Sodium Chloride) 100 mls @ 100 mls/ hr IVPB Q6 [facility] Sodium Chloride (Sodium Chloride 0.9%) 1,000 mls @ 80 mls/hr IV .[id number] [facility] Stop: 05/21/17 08:37 Methylprednisolone 40 mg/ (Sodium Chloride) 50 mls @ 100 mls/hr IVPB Q12 [facility] Insulin Detemir (Levemir) 15 units SC HS [facility] Last Admin: 05/19/17 23:00 Dose: 15 u Insulin Human Lispro (Humalog) 0 units SC [facility] PRN Reason: Protocol Losartan Potassium (Cozaar) 100 mg PO DAILY [facility] Last Admin: 05/20/17 09:33 Dose: Not Given Montelukast Sodium (Singulair) 10 mg PO [facility] Last Admin: 05/19/17 23:21 Dose: 10 mg Temazepam (Restoril) 30 mg PO [facility] Last Admin: 05/19/17 23:29 Dose: 30 mg Trazodone HCl (Desyrel) 150 mg PO [facility] Last Admin: 05/19/17 23:00 Dose: 150 mg Verapamil HCl (Calan Sr Tab) 240 mg PO DAILY [facility] Last Admin: 05/20/17 09:31 Dose: Not Given - Labs Labs: 05/20/17 05:15 05/20/17 05:15 PT 11.0 Seconds (9.8-13.1) 05/19/17 15:39 INR 1.0 (0.9-1.2) 05/19/17 15:39 APTT 32.5 Seconds (25.6-37.1) 05/19/17 15:39 - Constitutional Appears: Non-toxic, No Acute Distress - Head Exam Head Exam: ATRAUMATIC, NORMAL INSPECTION, NORMOCEPHALIC - Eye Exam Eye Exam: EOMI, Normal appearance, PERRL Pupil Exam: NORMAL ACCOMODATION - ENT Exam ENT Exam: Mucous Membranes Moist, Normal Exam - Neck Exam Neck Exam: Full ROM, Normal Inspection - Respiratory Exam Respiratory Exam: Clear to Ausculation Bilateral, NORMAL BREATHING PATTERN. absent: Rales, Wheezes - Cardiovascular Exam Cardiovascular Exam: REGULAR RHYTHM, RRR, +S1, +S2. absent: JVD - GI/Abdominal Exam GI & Abdominal Exam: Soft, Normal Bowel Sounds. absent: Distended, Guarding, Tenderness, Rebound - Rectal Exam Rectal Exam: Deferred - Extremities Exam Extremities Exam: Full ROM, Normal Capillary Refill, Normal Inspection. absent : Calf Tenderness, Pedal Edema - Back Exam Back Exam: NORMAL INSPECTION - Neurological Exam Neurological Exam: Alert, Awake, CN II-XII Intact, Oriented x3 - Psychiatric Exam Psychiatric exam: Normal Affect - Skin Skin Exam: Dry, Pallor, Warm Additional comments: stage I decubitus Assessment and Plan - Assessment and Plan (Free Text) Assessment: 82 yo female with history of COPD, HTN, DM2 and CHF came in complaining of loss of appetite, upper abdominal pain and generalized weakness since 5 days ago. Denied chest pain, SOB, fever or chills. Also denied nausea, vomiting or diarrhea. She was found to have elevated WBC count . CT abdomen showed distended gallbladder with small stones and pericholecystic fluid suggest cholecystitis ; ileus versus early small bowel obstruction 1. Abdominal pain Most likely secondary to cholelithiasis with acute cholecystitis and ileus with partial SBO Pain resolved , tolerating po intake surgery consulted Started on Zosyn IV HIDA scan positive for acute cholecystitis pain management prn monitor LFTs- 2. COPD asymptomatic Duoneb q 4hrs prn for SOB/wheezing pulmonary consulted 3. DM2 BS uncontrolled Hgb A1c 11 accuchek ACHS with low Lispro coverage Levemir 15 units SC HS diabetic diet 4. HTN BP controlled continue Cardura and Verapamil 5. CHF, compensated systolic dysfunction stable cardiology consulted 6.Anemia Most likely anemia of chronic disease Monitor for now 7. Sick euthyroid TSH and T3 low Will need repeat levels once acute illness is treated 5. DVT Prophylaxis Lovenox 40mg SC daily
[2017-05-20] MEDS: Sodium Chloride 0.9% 1,000 ML IV SCH ×2 (09:58→22:08)
[2017-05-20 10:14] LABS: T4 7.58 ug/dl (5.5-11.0)
[2017-05-20] MEDS ORDERED: Sodium Chloride 3% for Inhalation 4 ML VIAL.NEB IH PRN (10:30)
--- NOTE | 2017-05-20 10:54 | CP.PCM.CON ---
History of Present Illness - History of Present Illness History of Present Illness: 82yo F with PMHx of COPD, HTN, DM, CHF here for evaluation of vague abdominal pain and generalized weakness. Patient reports abdominal pain for 1.5 days located in the right upper quadrant. Currently, she states that her abdominal pain has resolved. She denies N/V/D. Last BM 2 days ago. Reports chronic constipation. Denies any blood in stool or dark stools. Denies any fevers or chills. No CP/SOB. No headaches. Last meal was today morning (pancakes, eggs). She states that she has had multiple similar pains in the past that have spontaneously resolved. PMHx: COPD, HTN, DM, CHF PSHx: Appendicitis, Hysterectomy, VATS Family Hx: Vaginal CA Social Hx: Lives in [place] with . Former Smoker, denies ETOH, denies illicit drugs Cardiac silva she denies chest pain or SOB denies any cardiac Hx EKG: IRBBB Troponin: neg Past Patient History - Tetanus Immunizations Tetanus Immunization: Unknown - Past Medical History & Family History Past Medical History?: Yes - Past Social History Smoking Status: Never Smoked - CARDIAC Hx Cardiac Disorders: No Hx Congestive Heart Failure: No Hx Hypercholesterolemia: No Hx Hypertension: Yes - PULMONARY Hx Asthma: Yes Hx Chronic Obstructive Pulmonary Disease (COPD): Yes Hx Emphysema: Yes Hx Pneumonia: Yes - NEUROLOGICAL Hx Seizures: No - HEENT Hx HEENT Problems: No - RENAL Hx Chronic Kidney Disease: No - ENDOCRINE/METABOLIC Hx Diabetes Mellitus Type 2: Yes Hx Hypothyroidism: Yes - HEMATOLOGICAL/ONCOLOGICAL Hx AIDS: No Hx Anemia: Yes Hx Human Immunodeficiency Virus (HIV): No - INTEGUMENTARY Hx Dermatological Problems: Yes Other/Comment: Sacral redness. right buttock wound. left buttock redness - MUSCULOSKELETAL/RHEUMATOLOGICAL Hx Arthritis: Yes Hx Falls: No Hx Rheumatoid Arthritis: Yes - GASTROINTESTINAL Hx Gastritis: Yes - GENITOURINARY/GYNECOLOGICAL Hx Uterine Cancer: Yes Hx Urinary Tract Infection: Yes - PSYCHIATRIC Hx Anxiety: Yes Hx Depression: Yes Hx Substance Use: No - SURGICAL HISTORY Hx Appendectomy: Yes - ANESTHESIA Hx Anesthesia: Yes Hx Anesthesia Reactions: No Hx Malignant Hyperthermia: No Meds Allergies/Adverse Reactions: Allergies Allergy/AdvReac Type Severity Reaction Status Date / Time No Known Allergies Allergy Verified 03/04/16 15:46 - Medications Medications: Current Medications Acetylcysteine (Acetylcysteine 20%) 2 ml INH RBID [facility] Albuterol Sulfate (Albuterol 0.083% Inhal Ro (2.5 Mg/3 Ml) Ud) 2.5 mg IH Q4H PRN PRN Reason: Shortness of Breath Albuterol/Ipratropium (Duoneb 3 Mg/0.5 Mg (3 Ml) Ud) 3 ml IH RQ4 [facility] Cyproheptadine HCl (Periactin) 4 mg PO BID [facility] Last Admin: 05/20/17 09:54 Dose: 4 mg Doxazosin Mesylate (Cardura) 8 mg PO DAILY [facility] Last Admin: 05/20/17 09:55 Dose: 8 mg Enoxaparin Sodium (Lovenox) 30 mg SC DAILY [facility] PRN Reason: Protocol Last Admin: 05/20/17 09:39 Dose: 30 mg Furosemide (Lasix) 20 mg PO DAILY [facility] Last Admin: 05/20/17 09:56 Dose: 20 mg Glipizide (Glucotrol Xl) 5 mg PO DAILY [facility] Last Admin: 05/20/17 09:55 Dose: 5 mg Piperacillin Sod/Tazobactam (Sod 3.375 gm/ Sodium Chloride) 100 mls @ 100 mls/ hr IVPB Q6 [facility] Sodium Chloride (Sodium Chloride 0.9%) 1,000 mls @ 80 mls/hr IV .[id number] [facility] Stop: 05/21/17 08:37 Last Admin: 05/20/17 09:58 Dose: 80 mls/hr Methylprednisolone 40 mg/ (Sodium Chloride) 50 mls @ 100 mls/hr IVPB Q12 [facility] Insulin Detemir (Levemir) 15 units SC HS [facility] Last Admin: 05/19/17 23:00 Dose: 15 u Insulin Human Lispro (Humalog) 0 units SC ACHS [facility] PRN Reason: Protocol Losartan Potassium (Cozaar) 100 mg PO DAILY [facility] Last Admin: 05/20/17 09:56 Dose: 100 mg Montelukast Sodium (Singulair) 10 mg PO HS [facility] Last Admin: 05/19/17 23:21 Dose: 10 mg Temazepam (Restoril) 30 mg PO HS [facility] Last Admin: 05/19/17 23:29 Dose: 30 mg Trazodone HCl (Desyrel) 150 mg PO HS [facility] Last Admin: 05/19/17 23:00 Dose: 150 mg Verapamil HCl (Calan Sr Tab) 240 mg PO DAILY [facility] Last Admin: 05/20/17 09:55 Dose: 240 mg Physical Exam - Constitutional Appears: Well - Head Exam Head Exam: NORMAL INSPECTION - Eye Exam Eye Exam: Normal appearance - ENT Exam ENT Exam: Normal Exam - Neck Exam Neck exam: Positive for: Normal Inspection - Respiratory Exam Respiratory Exam: NORMAL BREATHING PATTERN - Cardiovascular Exam Cardiovascular Exam: REGULAR RHYTHM Results - Vital Signs Recent Vital Signs: Last Vital Signs Temp 98.5 F 05/20/17 08:24 Pulse 94 H 05/20/17 09:56 Resp 18 05/20/17 08:24 BP 131/68 05/20/17 09:56 Pulse Ox 97 05/20/17 08:24 - Labs Result Diagrams: 05/20/17 05:15 05/20/17 05:15 Labs: Laboratory Results - last 24 hr 05/19/17 05/19/17 05/19/17 19:17 19:22 20:06 WBC RBC Hgb Hct MCV MCH MCHC RDW Plt Count MPV Neut % (Auto) Lymph % (Auto) [place] % (Auto) Eos % (Auto) Baso % (Auto) Neut # Lymph # [place] # Eos # Baso # pO2 50 VBG pH 7.42 VBG pCO2 48 VBG HCO3 28.9 VBG Total CO2 32.6 H VBG O2 Sat (Calc) 90.7 H VBG Base Excess 5.5 H VBG Potassium 4.6 Sodium 135.0 Chloride 102.0 Glucose 262 H Lactate 1.0 FiO2 21.0 Potassium Carbon Dioxide Anion Gap BUN Creatinine Est GFR ( Amer) Est GFR (Non-Af Amer) POC Glucose (mg/dL) 283 H Random Glucose Calcium Total Bilirubin Direct Bilirubin AST ALT Alkaline Phosphatase NT-Pro-B Natriuret Pep Total Protein Albumin Globulin Albumin/Globulin Ratio Thyroxine (T4) Total T3 TSH 3rd Generation Venous Blood Potassium 4.6 Urine Color Yellow Urine Clarity Slighty-cloudy Urine pH 5.0 Ur Specific [place] 1.017 Urine Protein Negative Urine Glucose (UA) 50 Urine Ketones Trace Urine Blood Negative Urine Nitrate Negative Urine Bilirubin Negative Urine Urobilinogen 0.2-1.0 Ur Leukocyte Esterase Large Urine Microscopic WBC 68 H Ur Squamous Epith Cells 1 Urine Bacteria Rare Hyaline Casts 0-2 07/09/2505/19/17 05/20/17 20:15 22:53 05:15 WBC 17.7 H RBC 3.39 L Hgb 9.9 L Hct 30.0 L MCV 88.6 MCH 29.1 MCHC 32.8 L RDW 15.3 H Plt Count 362 MPV 7.9 Neut % (Auto) 95.9 H Lymph % (Auto) 3.3 L [place] % (Auto) 0.8 Eos % (Auto) 0.0 Baso % (Auto) 0.0 Neut # 16.9 H Lymph # 0.6 L [place] # 0.1 Eos # 0.0 Baso # 0.0 pO2 VBG pH VBG pCO2 VBG HCO3 VBG Total CO2 VBG O2 Sat (Calc) VBG Base Excess VBG Potassium Sodium Chloride Glucose Lactate FiO2 Potassium Carbon Dioxide Anion Gap BUN Creatinine Est GFR ( Amer) Est GFR (Non-Af Amer) POC Glucose (mg/dL) 307 H Random Glucose Calcium Total Bilirubin Direct Bilirubin AST ALT Alkaline Phosphatase NT-Pro-B Natriuret Pep 500 Total Protein Albumin Globulin Albumin/Globulin Ratio Thyroxine (T4) Total T3 TSH 3rd Generation Venous Blood Potassium Urine Color Urine Clarity Urine pH Ur Specific [place] Urine Protein Urine Glucose (UA) Urine Ketones Urine Blood Urine Nitrate Urine Bilirubin Urine Urobilinogen Ur Leukocyte Esterase Urine Microscopic WBC Ur Squamous Epith Cells Urine Bacteria Hyaline Casts 05/20/17 05/20/17 05:15 05:18 WBC RBC Hgb Hct MCV MCH MCHC RDW Plt Count MPV Neut % (Auto) Lymph % (Auto) [place] % (Auto) Eos % (Auto) Baso % (Auto) Neut # Lymph # [place] # Eos # Baso # pO2 VBG pH VBG pCO2 VBG HCO3 VBG Total CO2 VBG O2 Sat (Calc) VBG Base Excess VBG Potassium Sodium 141 Chloride 102 Glucose Lactate FiO2 Potassium 4.9 Carbon Dioxide 31 H Anion Gap 13 BUN 31 H Creatinine 0.8 Est GFR ( Amer) > 60 Est GFR (Non-Af Amer) > 60 POC Glucose (mg/dL) 266 H Random Glucose 270 H Calcium 8.7 Total Bilirubin 0.4 Direct Bilirubin 0.4 AST 46 H D ALT 351 H Alkaline Phosphatase 129 H NT-Pro-B Natriuret Pep Total Protein 5.9 L Albumin 3.0 L Globulin 3.0 Albumin/Globulin Ratio 1.0 Thyroxine (T4) 7.58 Total T3 0.550 L TSH 3rd Generation 0.40 L Venous Blood Potassium Urine Color Urine Clarity Urine pH Ur Specific [place] Urine Protein Urine Glucose (UA) Urine Ketones Urine Blood Urine Nitrate Urine Bilirubin Urine Urobilinogen Ur Leukocyte Esterase Urine Microscopic WBC Ur Squamous Epith Cells Urine Bacteria Hyaline Casts Assessment & Plan (1) Cholelithiasis Assessment and Plan: Cardiac silva the Patient is stable Status: Acute
[2017-05-20] MEDS: Albuterol-Ipratrop 3 mg / 0.5 (3 ml) UD IH SCH ×4 (11:00→23:50)
[2017-05-20 11:07] LABS: BANDS 3 % (0-2); LYMPHOCYTE 4 % (20-50); MONOCYTE 1 % (0-10); NEUTROPHIL 92 % (42-75); TOTAL CELLS COUNTED 100
[2017-05-20 11:08] LABS: ANISOCYTOSIS SLIGHT; HYPOCHROMIC MODERATE; PLATELET ESTIMATE NORMAL (NORMAL)
[2017-05-20 11:37] LABS: HEPATITIS B SURFACE AG NEGATIVE (NEGATIVE)
[2017-05-20 11:42] LABS: HEPATITIS A IGM NEGATIVE (NEGATIVE); HEPATITIS B CORE AB NEGATIVE (NEGATIVE)
[2017-05-20 11:54] LABS: HEPATITIS C ANTIBODY NEGATIVE (NEGATIVE)
--- NOTE | 2017-05-20 12:17 | CP.PCM.CON ---
History of Present Illness - History of Present Illness History of Present Illness: Infectious Disease Consultation Note- asked to see this patient at the request of the hospitalist for leukocytosis , rule out sepsis. HPI- Patient is a pleasant 82 year old female with pmh of copd, DM II, HTN who was admitted with complaints of no appetite, nausea, abdominal pain . on admission was found to have leukocytosis and abd CT was reported as cholecystitis. Pt. just has come back from HIDA scan but she is in good spirits and denies any fever or chills and states feels better compared to admission, she denies any nausea today but has low appetite, denies any dysurea, denies any diarrhea, denies any cough, denies any sob, denies any chest pain. Pt. does c/o pain i nher buttock regiona nd as per pt's and son who are at bedside she has been developing redness and ? sore on her buttock. as per pt's family she is not really mobile at home and hence she is on her back most of the day and this may be the beginning of pressure ulcer. as per pt's son pt. did not have any recent hospitalizations and here last hospitalization was last year for ? pneumonia. Review of Systems - Review of Systems Review of Systems: ROS- denies any fever or chills, denies any ZIEGLER, denies any cough, denies any sob, denies any chest pain, had abdominal pain past few days mostly in right upper quadrant but denies any abd pain today, had nausea but no vomiting, decreased appetite, denies any dysurea, denies any diarrhea pain in buttock region secondary to pressure ulcer developing Past Patient History - Infectious Disease Hx of Infectious Diseases: None - Tetanus Immunizations Tetanus Immunization: Unknown - Past Medical History & Family History Past Medical History?: Yes - Past Social History Smoking Status: Never Smoked Alcohol: None Drugs: Denies Home Situation {Lives}: With Family - CARDIAC Hx Hypertension: Yes - PULMONARY Hx Asthma: Yes Hx Chronic Obstructive Pulmonary Disease (COPD): Yes Hx Emphysema: Yes Hx Pneumonia: Yes - NEUROLOGICAL Hx Neurological Disorder: No - HEENT Hx HEENT Problems: No - RENAL Hx Chronic Kidney Disease: No - ENDOCRINE/METABOLIC Hx Diabetes Mellitus Type 2: Yes Hx Hypothyroidism: Yes - HEMATOLOGICAL/ONCOLOGICAL Hx Anemia: Yes - INTEGUMENTARY Hx Dermatological Problems: Yes Other/Comment: Sacral redness. right buttock wound. left buttock redness - MUSCULOSKELETAL/RHEUMATOLOGICAL Hx Arthritis: Yes Hx Falls: No Hx Rheumatoid Arthritis: Yes - GASTROINTESTINAL Hx Gastritis: Yes - GENITOURINARY/GYNECOLOGICAL Hx Uterine Cancer: Yes Hx Urinary Tract Infection: Yes - PSYCHIATRIC Hx Anxiety: Yes Hx Depression: Yes Hx Substance Use: No - SURGICAL HISTORY Hx Appendectomy: Yes - ANESTHESIA Hx Anesthesia: Yes Hx Anesthesia Reactions: No Hx Malignant Hyperthermia: No Meds Allergies/Adverse Reactions: Allergies Allergy/AdvReac Type Severity Reaction Status Date / Time No Known Allergies Allergy Verified 03/04/16 15:46 - Medications Medications: Current Medications Acetylcysteine (Acetylcysteine 20%) 2 ml INH RBID ZIA Albuterol Sulfate (Albuterol 0.083% Inhal Ro (2.5 Mg/3 Ml) Ud) 2.5 mg IH Q4H PRN PRN Reason: Shortness of Breath Albuterol/Ipratropium (Duoneb 3 Mg/0.5 Mg (3 Ml) Ud) 3 ml IH RQ4 ZIA Last Admin: 05/20/17 11:00 Dose: 3 ml Cyproheptadine HCl (Periactin) 4 mg PO BID [facility] Last Admin: 05/20/17 09:54 Dose: 4 mg Doxazosin Mesylate (Cardura) 8 mg PO DAILY [facility] Last Admin: 05/20/17 09:55 Dose: 8 mg Enoxaparin Sodium (Lovenox) 30 mg SC DAILY [facility] PRN Reason: Protocol Last Admin: 05/20/17 09:39 Dose: 30 mg Furosemide (Lasix) 20 mg PO DAILY [facility] Last Admin: 05/20/17 09:56 Dose: 20 mg Glipizide (Glucotrol Xl) 5 mg PO DAILY [facility] Last Admin: 05/20/17 09:55 Dose: 5 mg Piperacillin Sod/Tazobactam (Sod 3.375 gm/ Sodium Chloride) 100 mls @ 100 mls/ hr IVPB Q6 [facility] Sodium Chloride (Sodium Chloride 0.9%) 1,000 mls @ 80 mls/hr IV .[id number] [facility] Stop: 05/21/17 08:37 Last Admin: 05/20/17 09:58 Dose: 80 mls/hr Methylprednisolone 40 mg/ (Sodium Chloride) 50 mls @ 100 mls/hr IVPB Q12 [facility] Insulin Detemir (Levemir) 15 units SC [facility] Last Admin: 05/19/17 23:00 Dose: 15 u Insulin Human Lispro (Humalog) 0 units SC [facility] PRN Reason: Protocol Losartan Potassium (Cozaar) 100 mg PO DAILY [facility] Last Admin: 05/20/17 09:56 Dose: 100 mg Montelukast Sodium (Singulair) 10 mg PO [facility] Last Admin: 05/19/17 23:21 Dose: 10 mg Temazepam (Restoril) 30 mg PO [facility] Last Admin: 05/19/17 23:29 Dose: 30 mg Trazodone HCl (Desyrel) 150 mg PO [facility] Last Admin: 05/19/17 23:00 Dose: 150 mg Verapamil HCl (Calan Sr Tab) 240 mg PO DAILY [facility] Last Admin: 05/20/17 09:55 Dose: 240 mg Physical Exam - Constitutional Appears: Non-toxic, No Acute Distress - Head Exam Head Exam: ATRAUMATIC - Eye Exam Eye Exam: EOMI - ENT Exam ENT Exam: Normal Oropharynx - Neck Exam Neck exam: Positive for: Full Rom - Respiratory Exam Respiratory Exam: Clear to Auscultation Bilateral, NORMAL BREATHING PATTERN - Cardiovascular Exam Cardiovascular Exam: RRR, +S1, +S2 - GI/Abdominal Exam GI & Abdominal Exam: Normal Bowel Sounds, Soft Additional comments: NT, ND No guarding, no rebound - Rectal Exam Additional comments: b/l medial sacral region erythema with very small superficial skin opening with scant yellow discharge, no malodor - Extremities Exam Additional comments: no edema B/L LE - Neurological Exam Neurological exam: Alert, Oriented x3 Results - Vital Signs Recent Vital Signs: Last Vital Signs Temp 98.5 F 05/20/17 08:24 Pulse 94 H 05/20/17 09:56 Resp 18 05/20/17 08:24 BP 131/68 05/20/17 09:56 Pulse Ox 97 05/20/17 08:24 - Labs Result Diagrams: 05/20/17 05:15 05/20/17 05:15 Labs: Laboratory Results - last 24 hr 05/19/17 05/19/17 05/19/17 19:17 19:22 20:06 WBC RBC Hgb Hct MCV MCH MCHC RDW Plt Count MPV Neut % (Auto) Lymph % (Auto) [place] % (Auto) Eos % (Auto) Baso % (Auto) Neut # Lymph # [place] # Eos # Baso # Neutrophils % (Manual) Band Neutrophils % Lymphocytes % (Manual) Monocytes % (Manual) Platelet Estimate Hypochromasia (manual) Anisocytosis (manual) pO2 50 VBG pH 7.42 VBG pCO2 48 VBG HCO3 28.9 VBG Total CO2 32.6 H VBG O2 Sat (Calc) 90.7 H VBG Base Excess 5.5 H VBG Potassium 4.6 Sodium 135.0 Chloride 102.0 Glucose 262 H Lactate 1.0 FiO2 21.0 Potassium Carbon Dioxide Anion Gap BUN Creatinine Est GFR ( Amer) Est GFR (Non-Af Amer) POC Glucose (mg/dL) 283 H Random Glucose Hemoglobin A1c Calcium Total Bilirubin Direct Bilirubin AST ALT Alkaline Phosphatase NT-Pro-B Natriuret Pep Total Protein Albumin Globulin Albumin/Globulin Ratio Thyroxine (T4) Total T3 TSH 3rd Generation Venous Blood Potassium 4.6 Urine Color Yellow Urine Clarity Slighty-cloudy Urine pH 5.0 Ur Specific [place] 1.017 Urine Protein Negative Urine Glucose (UA) 50 Urine Ketones Trace Urine Blood Negative Urine Nitrate Negative Urine Bilirubin Negative Urine Urobilinogen 0.2-1.0 Ur Leukocyte Esterase Large Urine Microscopic WBC 68 H Ur Squamous Epith Cells 1 Urine Bacteria Rare Hyaline Casts 0-2 Hepatitis A IgM Ab Hep Bs Antigen Hep B Core IgM Ab Hepatitis C Antibody 05/19/17 05/19/17 05/19/17 20:15 20:15 22:53 WBC RBC Hgb Hct MCV MCH MCHC RDW Plt Count MPV Neut % (Auto) Lymph % (Auto) [place] % (Auto) Eos % (Auto) Baso % (Auto) Neut # Lymph # [place] # Eos # Baso # Neutrophils % (Manual) Band Neutrophils % Lymphocytes % (Manual) Monocytes % (Manual) Platelet Estimate Hypochromasia (manual) Anisocytosis (manual) pO2 VBG pH VBG pCO2 VBG HCO3 VBG Total CO2 VBG O2 Sat (Calc) VBG Base Excess VBG Potassium Sodium Chloride Glucose Lactate FiO2 Potassium Carbon Dioxide Anion Gap BUN Creatinine Est GFR ( Amer) Est GFR (Non-Af Amer) POC Glucose (mg/dL) 307 H Random Glucose Hemoglobin A1c Calcium Total Bilirubin Direct Bilirubin AST ALT Alkaline Phosphatase NT-Pro-B Natriuret Pep 500 Total Protein Albumin Globulin Albumin/Globulin Ratio Thyroxine (T4) Total T3 TSH 3rd Generation Venous Blood Potassium Urine Color Urine Clarity Urine pH Ur Specific [place] Urine Protein Urine Glucose (UA) Urine Ketones Urine Blood Urine Nitrate Urine Bilirubin Urine Urobilinogen Ur Leukocyte Esterase Urine Microscopic WBC Ur Squamous Epith Cells Urine Bacteria Hyaline Casts Hepatitis A IgM Ab Negative Hep Bs Antigen Negative Hep B Core IgM Ab Negative Hepatitis C Antibody Negative 05/20/17 05/20/17 05/20/17 05:15 05:15 05:15 WBC 17.7 H RBC 3.39 L Hgb 9.9 L Hct 30.0 L MCV 88.6 MCH 29.1 MCHC 32.8 L RDW 15.3 H Plt Count 362 MPV 7.9 Neut % (Auto) 95.9 H Lymph % (Auto) 3.3 L [place] % (Auto) 0.8 Eos % (Auto) 0.0 Baso % (Auto) 0.0 Neut # 16.9 H Lymph # 0.6 L [place] # 0.1 Eos # 0.0 Baso # 0.0 Neutrophils % (Manual) 92 H Band Neutrophils % 3 H Lymphocytes % (Manual) 4 L Monocytes % (Manual) 1 Platelet Estimate Normal Hypochromasia (manual) Moderate Anisocytosis (manual) Slight pO2 VBG pH VBG pCO2 VBG HCO3 VBG Total CO2 VBG O2 Sat (Calc) VBG Base Excess VBG Potassium Sodium 141 Chloride 102 Glucose Lactate FiO2 Potassium 4.9 Carbon Dioxide 31 H Anion Gap 13 BUN 31 H Creatinine 0.8 Est GFR ( Amer) > 60 Est GFR (Non-Af Amer) > 60 POC Glucose (mg/dL) Random Glucose 270 H Hemoglobin A1c 11.4 H D Calcium 8.7 Total Bilirubin 0.4 Direct Bilirubin 0.4 AST 46 H D ALT 351 H Alkaline Phosphatase 129 H NT-Pro-B Natriuret Pep Total Protein 5.9 L Albumin 3.0 L Globulin 3.0 Albumin/Globulin Ratio 1.0 Thyroxine (T4) 7.58 Total T3 0.550 L TSH 3rd Generation 0.40 L Venous Blood Potassium Urine Color Urine Clarity Urine pH Ur Specific [place] Urine Protein Urine Glucose (UA) Urine Ketones Urine Blood Urine Nitrate Urine Bilirubin Urine Urobilinogen Ur Leukocyte Esterase Urine Microscopic WBC Ur Squamous Epith Cells Urine Bacteria Hyaline Casts Hepatitis A IgM Ab Hep Bs Antigen Hep B Core IgM Ab Hepatitis C Antibody 05/20/17 05/20/17 05:18 10:51 WBC RBC Hgb Hct MCV MCH MCHC RDW Plt Count MPV Neut % (Auto) Lymph % (Auto) [place] % (Auto) Eos % (Auto) Baso % (Auto) Neut # Lymph # [place] # Eos # Baso # Neutrophils % (Manual) Band Neutrophils % Lymphocytes % (Manual) Monocytes % (Manual) Platelet Estimate Hypochromasia (manual) Anisocytosis (manual) pO2 VBG pH VBG pCO2 VBG HCO3 VBG Total CO2 VBG O2 Sat (Calc) VBG Base Excess VBG Potassium Sodium Chloride Glucose Lactate FiO2 Potassium Carbon Dioxide Anion Gap BUN Creatinine Est GFR ( Amer) Est GFR (Non-Af Amer) POC Glucose (mg/dL) 266 H 399 H Random Glucose Hemoglobin A1c Calcium Total Bilirubin Direct Bilirubin AST ALT Alkaline Phosphatase NT-Pro-B Natriuret Pep Total Protein Albumin Globulin Albumin/Globulin Ratio Thyroxine (T4) Total T3 TSH 3rd Generation Venous Blood Potassium Urine Color Urine Clarity Urine pH Ur Specific [place] Urine Protein Urine Glucose (UA) Urine Ketones Urine Blood Urine Nitrate Urine Bilirubin Urine Urobilinogen Ur Leukocyte Esterase Urine Microscopic WBC Ur Squamous Epith Cells Urine Bacteria Hyaline Casts Hepatitis A IgM Ab Hep Bs Antigen Hep B Core IgM Ab Hepatitis C Antibody Laboratory Results - last 72 hr 05/19/17 05/19/17 05/19/17 15:37 15:39 15:48 WBC RBC Hgb Hct MCV MCH MCHC RDW Plt Count MPV Neut % (Auto) Lymph % (Auto) [place] % (Auto) Eos % (Auto) Baso % (Auto) Neut # Lymph # [place] # Eos # Baso # Neutrophils % (Manual) Band Neutrophils % Lymphocytes % (Manual) Monocytes % (Manual) Platelet Estimate Hypochromasia (manual) Anisocytosis (manual) PT 11.0 INR 1.0 APTT 32.5 pCO2 43 pO2 80 HCO3 30.2 H ABG pH 7.47 H ABG Total CO2 32.6 H ABG O2 Saturation 99.0 H ABG Base Excess 6.8 H Roger Test Yes ABG Potassium 4.4 VBG pH VBG pCO2 VBG HCO3 VBG Total CO2 VBG O2 Sat (Calc) VBG Base Excess VBG Potassium A-a O2 Difference 94.0 Sodium 133.0 Chloride 99.0 Glucose 278 H Lactate 2.2 H Vent Mode N/c FiO2 32.0 Potassium Carbon Dioxide Anion Gap BUN Creatinine Est GFR ( Amer) Est GFR (Non-Af Amer) POC Glucose (mg/dL) 282 H Random Glucose Hemoglobin A1c Calcium Phosphorus Magnesium Total Bilirubin Direct Bilirubin AST ALT Alkaline Phosphatase Troponin I NT-Pro-B Natriuret Pep Total Protein Albumin Globulin Albumin/Globulin Ratio Thyroxine (T4) Total T3 TSH 3rd Generation Arterial Blood Potassium 4.4 Venous Blood Potassium Urine Color Urine Clarity Urine pH Ur Specific [place] Urine Protein Urine Glucose (UA) Urine Ketones Urine Blood Urine Nitrate Urine Bilirubin Urine Urobilinogen Ur Leukocyte Esterase Urine Microscopic WBC Ur Squamous Epith Cells Urine Bacteria Hyaline Casts Hepatitis A IgM Ab Hep Bs Antigen Hep B Core IgM Ab Hepatitis C Antibody 05/19/17 05/19/17 05/19/17 15:55 16:00 19:17 WBC 12.9 H RBC 3.55 L Hgb 10.1 L Hct 31.3 L MCV 88.1 MCH 28.5 MCHC 32.4 L RDW 15.0 H Plt Count 349 MPV 8.2 Neut % (Auto) 82.1 H Lymph % (Auto) 10.9 L [place] % (Auto) 5.2 Eos % (Auto) 1.6 Baso % (Auto) 0.2 Neut # 10.6 H Lymph # 1.4 [place] # 0.7 Eos # 0.2 Baso # 0.0 Neutrophils % (Manual) Band Neutrophils % Lymphocytes % (Manual) Monocytes % (Manual) Platelet Estimate Hypochromasia (manual) Anisocytosis (manual) PT INR APTT pCO2 pO2 HCO3 ABG pH ABG Total CO2 ABG O2 Saturation ABG Base Excess Roger Test ABG Potassium VBG pH VBG pCO2 VBG HCO3 VBG Total CO2 VBG O2 Sat (Calc) VBG Base Excess VBG Potassium A-a O2 Difference Sodium 133 Chloride 97 L Glucose Lactate Vent Mode FiO2 Potassium 5.0 Carbon Dioxide 28 Anion Gap 13 BUN 44 H Creatinine 1.0 Est GFR ( Amer) > 60 Est GFR (Non-Af Amer) 53 POC Glucose (mg/dL) 283 H Random Glucose 266 H Hemoglobin A1c Calcium 8.9 Phosphorus 3.2 Magnesium 1.8 Total Bilirubin 0.6 Direct Bilirubin AST 76 H D ALT 424 H D Alkaline Phosphatase 129 H D Troponin I < 0.0120 NT-Pro-B Natriuret Pep 567 Total Protein 6.1 L Albumin 3.0 L Globulin 3.0 Albumin/Globulin Ratio 1.0 Thyroxine (T4) Total T3 TSH 3rd Generation Arterial Blood Potassium Venous Blood Potassium Urine Color Urine Clarity Urine pH Ur Specific [place] Urine Protein Urine Glucose (UA) Urine Ketones Urine Blood Urine Nitrate Urine Bilirubin Urine Urobilinogen Ur Leukocyte Esterase Urine Microscopic WBC Ur Squamous Epith Cells Urine Bacteria Hyaline Casts Hepatitis A IgM Ab Hep Bs Antigen Hep B Core IgM Ab Hepatitis C Antibody 05/19/17 05/19/17 05/19/17 19:22 20:06 20:15 WBC RBC Hgb Hct MCV MCH MCHC RDW Plt Count MPV Neut % (Auto) Lymph % (Auto) [place] % (Auto) Eos % (Auto) Baso % (Auto) Neut # Lymph # [place] # Eos # Baso # Neutrophils % (Manual) Band Neutrophils % Lymphocytes % (Manual) Monocytes % (Manual) Platelet Estimate Hypochromasia (manual) Anisocytosis (manual) PT INR APTT pCO2 pO2 50 HCO3 ABG pH ABG Total CO2 ABG O2 Saturation ABG Base Excess Roger Test ABG Potassium VBG pH 7.42 VBG pCO2 48 VBG HCO3 28.9 VBG Total CO2 32.6 H VBG O2 Sat (Calc) 90.7 H VBG Base Excess 5.5 H VBG Potassium 4.6 A-a O2 Difference Sodium 135.0 Chloride 102.0 Glucose 262 H Lactate 1.0 Vent Mode FiO2 21.0 Potassium Carbon Dioxide Anion Gap BUN Creatinine Est GFR ( Amer) Est GFR (Non-Af Amer) POC Glucose (mg/dL) Random Glucose Hemoglobin A1c Calcium Phosphorus Magnesium Total Bilirubin Direct Bilirubin AST ALT Alkaline Phosphatase Troponin I NT-Pro-B Natriuret Pep 500 Total Protein Albumin Globulin Albumin/Globulin Ratio Thyroxine (T4) Total T3 TSH 3rd Generation Arterial Blood Potassium Venous Blood Potassium 4.6 Urine Color Yellow Urine Clarity Slighty-cloudy Urine pH 5.0 Ur Specific [place] 1.017 Urine Protein Negative Urine Glucose (UA) 50 Urine Ketones Trace Urine Blood Negative Urine Nitrate Negative Urine Bilirubin Negative Urine Urobilinogen 0.2-1.0 Ur Leukocyte Esterase Large Urine Microscopic WBC 68 H Ur Squamous Epith Cells 1 Urine Bacteria Rare Hyaline Casts 0-2 Hepatitis A IgM Ab Hep Bs Antigen Hep B Core IgM Ab Hepatitis C Antibody 05/19/17 05/19/17 05/20/17 20:15 22:53 05:15 WBC 17.7 H RBC 3.39 L Hgb 9.9 L Hct 30.0 L MCV 88.6 MCH 29.1 MCHC 32.8 L RDW 15.3 H Plt Count 362 MPV 7.9 Neut % (Auto) 95.9 H Lymph % (Auto) 3.3 L [place] % (Auto) 0.8 Eos % (Auto) 0.0 Baso % (Auto) 0.0 Neut # 16.9 H Lymph # 0.6 L [place] # 0.1 Eos # 0.0 Baso # 0.0 Neutrophils % (Manual) 92 H Band Neutrophils % 3 H Lymphocytes % (Manual) 4 L Monocytes % (Manual) 1 Platelet Estimate Normal Hypochromasia (manual) Moderate Anisocytosis (manual) Slight PT INR APTT pCO2 pO2 HCO3 ABG pH ABG Total CO2 ABG O2 Saturation ABG Base Excess Roger Test ABG Potassium VBG pH VBG pCO2 VBG HCO3 VBG Total CO2 VBG O2 Sat (Calc) VBG Base Excess VBG Potassium A-a O2 Difference Sodium Chloride Glucose Lactate Vent Mode FiO2 Potassium Carbon Dioxide Anion Gap BUN Creatinine Est GFR ( Amer) Est GFR (Non-Af Amer) POC Glucose (mg/dL) 307 H Random Glucose Hemoglobin A1c Calcium Phosphorus Magnesium Total Bilirubin Direct Bilirubin AST ALT Alkaline Phosphatase Troponin I NT-Pro-B Natriuret Pep Total Protein Albumin Globulin Albumin/Globulin Ratio Thyroxine (T4) Total T3 TSH 3rd Generation Arterial Blood Potassium Venous Blood Potassium Urine Color Urine Clarity Urine pH Ur Specific [place] Urine Protein Urine Glucose (UA) Urine Ketones Urine Blood Urine Nitrate Urine Bilirubin Urine Urobilinogen Ur Leukocyte Esterase Urine Microscopic WBC Ur Squamous Epith Cells Urine Bacteria Hyaline Casts Hepatitis A IgM Ab Negative Hep Bs Antigen Negative Hep B Core IgM Ab Negative Hepatitis C Antibody Negative 05/20/17 05/20/17 05/20/17 05:15 05:15 05:18 WBC RBC Hgb Hct MCV MCH MCHC RDW Plt Count MPV Neut % (Auto) Lymph % (Auto) [place] % (Auto) Eos % (Auto) Baso % (Auto) Neut # Lymph # [place] # Eos # Baso # Neutrophils % (Manual) Band Neutrophils % Lymphocytes % (Manual) Monocytes % (Manual) Platelet Estimate Hypochromasia (manual) Anisocytosis (manual) PT INR APTT pCO2 pO2 HCO3 ABG pH ABG Total CO2 ABG O2 Saturation ABG Base Excess Roger Test ABG Potassium VBG pH VBG pCO2 VBG HCO3 VBG Total CO2 VBG O2 Sat (Calc) VBG Base Excess VBG Potassium A-a O2 Difference Sodium 141 Chloride 102 Glucose Lactate Vent Mode FiO2 Potassium 4.9 Carbon Dioxide 31 H Anion Gap 13 BUN 31 H Creatinine 0.8 Est GFR ( Amer) > 60 Est GFR (Non-Af Amer) > 60 POC Glucose (mg/dL) 266 H Random Glucose 270 H Hemoglobin A1c 11.4 H D Calcium 8.7 Phosphorus Magnesium Total Bilirubin 0.4 Direct Bilirubin 0.4 AST 46 H D ALT 351 H Alkaline Phosphatase 129 H Troponin I NT-Pro-B Natriuret Pep Total Protein 5.9 L Albumin 3.0 L Globulin 3.0 Albumin/Globulin Ratio 1.0 Thyroxine (T4) 7.58 Total T3 0.550 L TSH 3rd Generation 0.40 L Arterial Blood Potassium Venous Blood Potassium Urine Color Urine Clarity Urine pH Ur Specific [place] Urine Protein Urine Glucose (UA) Urine Ketones Urine Blood Urine Nitrate Urine Bilirubin Urine Urobilinogen Ur Leukocyte Esterase Urine Microscopic WBC Ur Squamous Epith Cells Urine Bacteria Hyaline Casts Hepatitis A IgM Ab Hep Bs Antigen Hep B Core IgM Ab Hepatitis C Antibody 05/20/17 10:51 WBC RBC Hgb Hct MCV MCH MCHC RDW Plt Count MPV Neut % (Auto) Lymph % (Auto) [place] % (Auto) Eos % (Auto) Baso % (Auto) Neut # Lymph # [place] # Eos # Baso # Neutrophils % (Manual) Band Neutrophils % Lymphocytes % (Manual) Monocytes % (Manual) Platelet Estimate Hypochromasia (manual) Anisocytosis (manual) PT INR APTT pCO2 pO2 HCO3 ABG pH ABG Total CO2 ABG O2 Saturation ABG Base Excess Roger Test ABG Potassium VBG pH VBG pCO2 VBG HCO3 VBG Total CO2 VBG O2 Sat (Calc) VBG Base Excess VBG Potassium A-a O2 Difference Sodium Chloride Glucose Lactate Vent Mode FiO2 Potassium Carbon Dioxide Anion Gap BUN Creatinine Est GFR ( Amer) Est GFR (Non-Af Amer) POC Glucose (mg/dL) 399 H Random Glucose Hemoglobin A1c Calcium Phosphorus Magnesium Total Bilirubin Direct Bilirubin AST ALT Alkaline Phosphatase Troponin I NT-Pro-B Natriuret Pep Total Protein Albumin Globulin Albumin/Globulin Ratio Thyroxine (T4) Total T3 TSH 3rd Generation Arterial Blood Potassium Venous Blood Potassium Urine Color Urine Clarity Urine pH Ur Specific [place] Urine Protein Urine Glucose (UA) Urine Ketones Urine Blood Urine Nitrate Urine Bilirubin Urine Urobilinogen Ur Leukocyte Esterase Urine Microscopic WBC Ur Squamous Epith Cells Urine Bacteria Hyaline Casts Hepatitis A IgM Ab Hep Bs Antigen Hep B Core IgM Ab Hepatitis C Antibody Accession No. : [id number] Patient Name / ID : JAZMNYE ELKINS / [id number] Exam Date : 05/19/2017 20:28:17 ( Approved ) Study Comment : Sex / Age : F / [id number] Creator : DELILAH COREAS Dictator : Area Director Of Home Health Sales : Procurement Manager : DELILAH COREAS Approver2 : Report Date : 05/19/2017 21:50:00 My Comment : [facility] Division of Radiology [address] [place] [address] Tel. no. Patient Name: SEVERO SAMANO Pt. Address: [address] [place] [address] Rec #: [id number] [place] [address]: Maikel BONILLA, Danish Edgar Pt CELL Order Location: [facility] : 1935 Female Age: 82 Order #: [id number] Reason for exam: enlarging abdomen with elevated LFTs CT Scan ABD PELVIS W/O PO OR IV CONT Exam Date: 05/19/17 This imaging exam was performed at [facility] EXAM: CT Abdomen and Pelvis Without Intravenous Contrast CLINICAL HISTORY: 82 years old, female; Signs and symptoms; Bloating; Additional info: Enlarging abdomen with elevated lfts. Sent physician. Doc. And labs TECHNIQUE: Axial computed tomography images of the abdomen and pelvis without intravenous contrast. This CT exam was performed using one or more of the following dose reduction techniques: automated exposure control, adjustment of the mA and/or kV according to patient size, and/or use of iterative reconstruction technique. Coronal and sagittal reformatted images were created and reviewed. EXAM DATE/TIME: 05/19/2017 8:14 PM COMPARISON: CT ABDOMEN AND PELVI 09/08/2008 1:17:11 PM FINDINGS: Lower thorax: The heart is mildly enlarged. There are coronary calcifications. There is bibasilar airspace disease. Air is a small right effusion ABDOMEN: Liver: Liver is heterogeneous. There is a cyst in the region of the gila hepatis. Right adrenal is unremarkable. There is thickening of the left adrenal. Gallbladder and bile ducts: Gallbladder is distended, 10 cm in length. There are small gallstones. Common bile duct is prominent. There is pericholecystic edema. Pancreas: Pancreas is atrophic. Spleen: unremarkable Adrenals: See above. Kidneys and ureters: There are bilateral renal cysts.Kidneys and ureters are otherwise unremarkable. Stomach and bowel: Stomach is almost empty. Rotation is normal. Proximal and mid small bowel is dilated with air-fluid levels. Distal small bowel is decompressed. Exact transition point is difficult to determine. Terminal ileum is unremarkable.Appendix is not visualized. Colon is incompletely distended which limits evaluation. There is diverticulosis. Appendix: See stomach and bowel PELVIS: Bladder: unremarkable Reproductive: Uterus is absent. There are no adnexal masses. ABDOMEN and PELVIS: Intraperitoneal space: There is no free air.There is no free fluid. Bones/joints: Bony structures are osteopenic.There are degenerative changes in the osseus structures. There is compression deformity at L2 Soft tissues: There is a fat containing left lower abdominal wall ventral hernia. There is a small fat containing umbilical hernia. Vasculature: Atherosclerotic calcifications. There are calcified phleboliths. Lymph nodes: There is no pathologic adenopathy. IMPRESSION: Bibasal or air space disease with small right effusion; limited evaluation of the liver due to the lack of contrast, small hepatic cyst; distended gallbladder with small stones and pericholecystic fluid suggest cholecystitis; ileus versus early small bowel obstruction; an age- indeterminate L2 compression fracture; mild cardiomegaly and atherosclerotic disease Additional findings as described above. Dictated By: Delilah Coreas MD, MD Dictated Date/Time: 05/19/17 8490 Signed By: Delilah Coreas MD Date Signed: 2149 Transcribed By: KAMRYN Transcribe Date/Time : 05/19/172149 JUANPABLO/ALEJA Microbiology 05/18/16 07:41 Urine,Clean Catch Urine Culture - Final No Growth (<1,000 CFU/ML) 05/14/16 13:50 Blood Blood Culture - Final 05/14/16 13:50 Blood Gram Stain - Final NO GROWTH AFTER 5 DAYS TEST NOT PERFORMED 05/14/16 13:50 Blood Blood Culture - Final 05/14/16 13:50 Blood Gram Stain - Final NO GROWTH AFTER 5 DAYS TEST NOT PERFORMED 05/14/16 03:30 Urine Urine Culture - Final Escherichia Coli Methicillin Resistant S Aureus Assessment & Plan (1) Cholelithiasis Status: Acute (2) Diabetes Status: Acute (3) Pressure ulcer of sacral region, stage 1 Status: Acute (4) Leukocytosis Status: Acute (5) COPD (chronic obstructive pulmonary disease) Status: Acute - Assessment and Plan (Free Text) Assessment: A/P- 82 year old female with pmh of DM II, COPD on home oxygen, HTN admitted with abd pain and leukocytosis found to have cholelithiasis and cholecystitis. not septic at this time with normal blood pressure and normal HR, however does have significant leukocytosis and based on med records in 2016 had ESBL UTI. was reported sensitive to pip/tazobactam. plan- await blood and urine cx from this admission. advise to continue with IV zosyn that was started by the primary team pending further results. await HIDA scan result as well. monitor wbc and temps. transaminitis could be secondary to inflammation and sirs itself. Hepatitis panel was negative. advise wound nurse consult for the pressure sacral ulcer. all above d/w patient and her family and they verbalize full understanding of all above. Thank you for allowing me to take part in the care of this patient. will f/u while inpatient.
[2017-05-20] MEDS: Insulin Lispro (humaLOG) 100 Units/ml Inj SC SCH ×3 (12:56→22:10)
[2017-05-20] MEDS: Piperacillin/Tazobact 3.375 GM in Sodium Chloride 0.9% 100 ML IVPB SCH ×3 (12:57→21:00)
[2017-05-20] MEDS: methylPREDNISolone 40 MG in Sodium Chloride 0.9% 50 ML IVPB SCH ×2 (12:57→20:56)
--- NOTE | 2017-05-20 15:27 | NM ---
PROCEDURE: Nuclear Medicine Hepatobiliary Scan HISTORY: rule out cholecystitis COMPARISON: May 19, 2017. Abdominal and pelvic CT scan. TECHNIQUE: 5.4 mCi of technetium 99m Mebrofenin was administered intravenously. Planar images of the abdomen were obtained at 5 min intervals to 60 mins. Delayed images were also obtained. FINDINGS: LIVER: Timely and homogenous uptake. COMMON BILE DUCT: identified at 10 mins. GALLBLADDER: Not identified at 3 hours. SMALL BOWEL: Identified at 15 mins. IMPRESSION: Positive Hepatobiliary Scan. The cystic duct is occluded. Presumptive evidence for acute cholecystitis.
--- NOTE | 2017-05-20 16:49 | US ---
HISTORY: cholecystitis? elevated LFTs COMPARISON: CT abdomen/ pelvis 05/19/2017 and radionuclide hepatobiliary scan 05/20/2027 TECHNIQUE: Sonographic evaluation of the abdomen. FINDINGS: LIVER: Measures 15.7 cm. Normal echogenicity of the liver parenchyma. Lobulated cyst within the liver, likely within left lobe, 2.0 x 2.2 x 2.4 cm. No solid mass identified. No intrahepatic biliary ductal dilatation. GALLBLADDER: Gallbladder containing heterogeneously echogenic material. Fluid/ fluid level within gallbladder lumen. Thickened gallbladder wall up to 8 mm. Small amount of pericholecystic fluid appreciated. No definite gallstones identified. Findings concerning for acute cholecystitis. COMMON BILE DUCT: Measures 5 mm. No stones. No dilatation. PANCREAS: 4 x 4 x 7 mm cyst within body of pancreas common nonspecific. Cyst versus cystic neoplasm. RIGHT KIDNEY: Measures 9.5cm. Normal cortical thickness and echogenicity. Upper pole simple cyst, 1.5 x 2.0 x 2.5 cm. Lower pole cortical cyst, 1.6 x 2.1 x 2.1 cm. No calculus or hydronephrosis. LEFT KIDNEY: Measures 10.1cm. Normal cortical thickness and echogenicity. Upper pole simple cyst, 1.9 x 2.2 x 2.5 cm. No calculus or hydronephrosis. SPLEEN: Normal in size and contour. No mass. AORTA: No aneurysmal dilatation. IVC: Unremarkable. OTHER FINDINGS: None. IMPRESSION: Findings concerning for acute cholecystitis. Additional minor findings as above.
[2017-05-20] MEDS: Acetylcysteine 20% Inhal Soln (4ml) INH SCH (19:16)
[2017-05-20] MEDS: Insulin Detemir 100 Units/ml Inj SC SCH (21:51)
[2017-05-21] MEDS: Piperacillin/Tazobact 3.375 GM in Sodium Chloride 0.9% 100 ML IVPB SCH ×4 (04:08→21:14)
[2017-05-21] MEDS: Albuterol-Ipratrop 3 mg / 0.5 (3 ml) UD IH SCH ×5 (04:53→19:33)
[2017-05-21 06:58] LABS: BASO % 0.1 % (0.0-2.0); HEMOGLOBIN 9.2 g/dL (12.0-16.0); LYMPH # 0.6 K/uL (1.0-4.3); LYMPH % 4.4 % (20.0-40.0); MEAN CELL VOLUME 88.1 fl (81.0-99.0); MEAN CORPUSCULAR HEMOGLOBIN 28.8 pg (27.0-31.0); MEAN CORPUSCULAR HGB CONC 32.7 g/dL (33.0-37.0); MEAN PLATELET VOLUME 7.8 fl (7.2-11.7); MONO # 0.2 K/uL (0.0-0.8); MONO % 1.2 % (0.0-10.0); NEUT # 13.4 K/uL (1.8-7.0); NEUT % 94.3 % (50.0-75.0); PLATELET COUNT 365 K/uL (130-400); RBC 3.18 Mil/uL (3.80-5.20); RED CELL DISTRIBUTION WIDTH 14.9 % (11.5-14.5); WHITE BLOOD COUNT 14.2 K/uL (4.8-10.8)
[2017-05-21 07:11] LABS: ALB/GLOB RATIO 1.1 (1.0-2.1); ALBUMIN 2.9 g/dL (3.5-5.0); ALT/SGPT 242 U/L (9-52); AST/SGOT 38 U/L (14-36); BLOOD UREA NITROGEN 29 mg/dl (7-17); CALCIUM 8.3 mg/dL (8.4-10.2); GFR AFRICAN-AMERICAN > 60; GFR NON-AFRICAN AMERICAN 60
[2017-05-21] MEDS: Acetylcysteine 20% Inhal Soln (4ml) INH SCH ×2 (07:58→19:33)
--- NOTE | 2017-05-21 08:33 | CP.PCM.PN ---
Subjective - Date & Time of Evaluation Date of Evaluation: 05/21/17 Time of Evaluation: 08:33 - Subjective Subjective: FEELS BETTER SOB IMPROVED ABDOMINAL PAIN IMPROVED Objective - Vital Signs/Intake and Output Vital Signs (last 24 hours): Temp Pulse Resp BP Pulse Ox 98 F 109 H 18 138/62 94 L 05/21/17 08:24 05/21/17 08:24 05/21/17 08:24 05/21/17 08:24 05/21/17 08:24 - Medications Medications: Current Medications Acetylcysteine (Acetylcysteine 20%) 2 ml INH RBID [facility] Last Admin: 05/21/17 07:58 Dose: 2 ml Albuterol Sulfate (Albuterol 0.083% Inhal Ro (2.5 Mg/3 Ml) Ud) 2.5 mg IH Q4H PRN PRN Reason: Shortness of Breath Albuterol/Ipratropium (Duoneb 3 Mg/0.5 Mg (3 Ml) Ud) 3 ml IH RQ4 [facility] Last Admin: 05/21/17 07:56 Dose: 3 ml Cyproheptadine HCl (Periactin) 4 mg PO BID [facility] Last Admin: 05/20/17 17:32 Dose: 4 mg Doxazosin Mesylate (Cardura) 8 mg PO DAILY [facility] Last Admin: 05/20/17 09:55 Dose: 8 mg Enoxaparin Sodium (Lovenox) 30 mg SC DAILY [facility] PRN Reason: Protocol Last Admin: 05/20/17 09:39 Dose: 30 mg Furosemide (Lasix) 20 mg PO DAILY [facility] Last Admin: 05/20/17 09:56 Dose: 20 mg Glipizide (Glucotrol Xl) 5 mg PO DAILY [facility] Last Admin: 05/20/17 09:55 Dose: 5 mg Piperacillin Sod/Tazobactam (Sod 3.375 gm/ Sodium Chloride) 100 mls @ 100 mls/ hr IVPB Q6 [facility] Last Admin: 05/21/17 04:08 Dose: 100 mls/hr Sodium Chloride (Sodium Chloride 0.9%) 1,000 mls @ 80 mls/hr IV .[id number] [facility] Stop: 05/21/17 08:37 Last Admin: 05/20/17 22:08 Dose: 80 mls/hr Methylprednisolone 40 mg/ (Sodium Chloride) 50 mls @ 100 mls/hr IVPB Q12 [facility] Last Admin: 05/20/17 20:56 Dose: 100 mls/hr Insulin Detemir (Levemir) 15 units SC [facility] Last Admin: 05/20/17 21:51 Dose: 15 u Insulin Human Lispro (Humalog) 0 units SC [facility] PRN Reason: Protocol Last Admin: 05/20/17 22:10 Dose: Not Given Losartan Potassium (Cozaar) 100 mg PO DAILY [facility] Last Admin: 05/20/17 09:56 Dose: 100 mg Montelukast Sodium (Singulair) 10 mg PO [facility] Last Admin: 05/20/17 21:02 Dose: 10 mg Temazepam (Restoril) 30 mg PO [facility] Last Admin: 05/20/17 22:07 Dose: 30 mg Trazodone HCl (Desyrel) 150 mg PO [facility] Last Admin: 05/20/17 21:02 Dose: 150 mg Verapamil HCl (Calan Sr Tab) 240 mg PO DAILY [facility] Last Admin: 05/20/17 09:55 Dose: 240 mg - Labs Labs: 05/21/17 05:00 05/21/17 05:00 PT 11.0 Seconds (9.8-13.1) 05/19/17 15:39 INR 1.0 (0.9-1.2) 05/19/17 15:39 APTT 32.5 Seconds (25.6-37.1) 05/19/17 15:39 - Constitutional Appears: No Acute Distress - Head Exam Head Exam: ATRAUMATIC, NORMAL INSPECTION, NORMOCEPHALIC - Eye Exam Eye Exam: EOMI, Normal appearance, PERRL Pupil Exam: NORMAL ACCOMODATION, PERRL - ENT Exam ENT Exam: Mucous Membranes Moist, Normal Exam - Neck Exam Neck Exam: Full ROM, Normal Inspection. absent: Lymphadenopathy - Respiratory Exam Respiratory Exam: Prolonged Expiratory Phase, NORMAL BREATHING PATTERN - Cardiovascular Exam Cardiovascular Exam: REGULAR RHYTHM, +S1, +S2. absent: Murmur - GI/Abdominal Exam GI & Abdominal Exam: Soft, Normal Bowel Sounds. absent: Tenderness - Rectal Exam Rectal Exam: NORMAL INSPECTION - Extremities Exam Extremities Exam: Full ROM, Normal Capillary Refill, Normal Inspection. absent : Joint Swelling, Pedal Edema - Back Exam Back Exam: NORMAL INSPECTION - Neurological Exam Neurological Exam: Alert, Awake, CN II-XII Intact, Normal Gait, Oriented x3 - Psychiatric Exam Psychiatric exam: Normal Affect, Normal Mood - Skin Skin Exam: Dry, Intact, Normal Color, Warm Assessment and Plan - Assessment and Plan (Free Text) Assessment: COPD PNEUMONIA CHOLECYSTITIS Plan: CONTINUE PRESENT RX
[2017-05-21] MEDS: Insulin Lispro (humaLOG) 100 Units/ml Inj SC SCH ×4 (08:35→21:46)
[2017-05-21] MEDS: methylPREDNISolone 40 MG in Sodium Chloride 0.9% 50 ML IVPB SCH ×2 (09:18→20:23)
[2017-05-21] MEDS: Verapamil 240 mg ER Tab PO SCH (09:19)
[2017-05-21] MEDS: GlipiZIDE 5 mg SR Tab PO SCH (09:21)
[2017-05-21] MEDS: Enoxaparin 30 mg Syringe SC SCH (09:22)
--- NOTE | 2017-05-21 10:58 | CP.PCM.PN ---
<Bry Joe - Last Filed: 05/21/17 10:50> Subjective - Date & Time of Evaluation Date of Evaluation: 05/21/17 Time of Evaluation: 10:50 - Subjective Subjective: General Surgery Progress note. Dr. Contreras Pt seen and examined at bedside. No acute events overnight. Patient states that she has not had any more episodes of abdominal pain. No F/C. No N/V/D. No new complaints Objective - Vital Signs/Intake and Output Vital Signs (last 24 hours): Temp Pulse Resp BP Pulse Ox 98 F 109 H 18 138/62 94 L 05/21/17 08:24 05/21/17 09:21 05/21/17 08:24 05/21/17 09:21 05/21/17 08:24 - Medications Medications: Current Medications Acetylcysteine (Acetylcysteine 20%) 2 ml INH RBID [facility] Last Admin: 05/21/17 07:58 Dose: 2 ml Albuterol Sulfate (Albuterol 0.083% Inhal Ro (2.5 Mg/3 Ml) Ud) 2.5 mg IH Q4H PRN PRN Reason: Shortness of Breath Albuterol/Ipratropium (Duoneb 3 Mg/0.5 Mg (3 Ml) Ud) 3 ml IH RQ4 [facility] Last Admin: 05/21/17 07:56 Dose: 3 ml Cyproheptadine HCl (Periactin) 4 mg PO BID [facility] Last Admin: 05/21/17 09:23 Dose: 4 mg Doxazosin Mesylate (Cardura) 8 mg PO DAILY [facility] Last Admin: 05/21/17 09:20 Dose: 8 mg Enoxaparin Sodium (Lovenox) 30 mg SC DAILY [facility] PRN Reason: Protocol Last Admin: 05/21/17 09:22 Dose: 30 mg Furosemide (Lasix) 20 mg PO DAILY [facility] Last Admin: 05/21/17 09:21 Dose: 20 mg Glipizide (Glucotrol Xl) 5 mg PO DAILY [facility] Last Admin: 05/21/17 09:21 Dose: Not Given Piperacillin Sod/Tazobactam (Sod 3.375 gm/ Sodium Chloride) 100 mls @ 100 mls/ hr IVPB Q6 [facility] Last Admin: 05/21/17 09:19 Dose: 100 mls/hr Methylprednisolone 40 mg/ (Sodium Chloride) 50 mls @ 100 mls/hr IVPB Q12 [facility] Last Admin: 05/21/17 09:18 Dose: 100 mls/hr Sodium Chloride (Sodium Chloride 0.9%) 1,000 mls @ 80 mls/hr IV .[id number] [facility] Stop: 05/22/17 09:32 Insulin Detemir (Levemir) 15 units SC [facility] Last Admin: 05/20/17 21:51 Dose: 15 u Insulin Human Lispro (Humalog) 0 units SC [facility] PRN Reason: Protocol Last Admin: 05/21/17 08:35 Dose: Not Given Losartan Potassium (Cozaar) 100 mg PO DAILY [facility] Last Admin: 05/21/17 09:21 Dose: 100 mg Montelukast Sodium (Singulair) 10 mg PO [facility] Last Admin: 05/20/17 21:02 Dose: 10 mg Temazepam (Restoril) 30 mg PO [facility] Last Admin: 05/20/17 22:07 Dose: 30 mg Trazodone HCl (Desyrel) 150 mg PO [facility] Last Admin: 05/20/17 21:02 Dose: 150 mg Verapamil HCl (Calan Sr Tab) 240 mg PO DAILY [facility] Last Admin: 05/21/17 09:19 Dose: 240 mg - Labs Labs: 05/21/17 05:00 05/21/17 05:00 PT 11.0 Seconds (9.8-13.1) 05/19/17 15:39 INR 1.0 (0.9-1.2) 05/19/17 15:39 APTT 32.5 Seconds (25.6-37.1) 05/19/17 15:39 - Constitutional Appears: Well, No Acute Distress - Head Exam Head Exam: ATRAUMATIC, NORMAL INSPECTION, NORMOCEPHALIC - Eye Exam Eye Exam: EOMI - ENT Exam ENT Exam: Mucous Membranes Moist - Neck Exam Neck Exam: Full ROM - Respiratory Exam Respiratory Exam: NORMAL BREATHING PATTERN - GI/Abdominal Exam GI & Abdominal Exam: Soft. absent: Distended, Firm, Guarding, Rigid, Tenderness - Extremities Exam Extremities Exam: Normal Inspection. absent: Calf Tenderness - Neurological Exam Neurological Exam: Alert, Awake Assessment and Plan - Assessment and Plan (Free Text) Assessment: 82yo F with PMHx of HTN, COPD, DM, CHF. General surgery consulted for abdominal pain. - CT with distended gallbladder with small stones - Abd US - Possible acute cholecystitis - HIDA scan - concerning for cholecystitis - Leukocytosis improving, afebrile - We discussed plan and exam findings with patient and family at length including the possibility of surgery vs. conservative treatment. Family and patient elected to not undergo surgical intervention at this time. - Continue ABX as per ID - Patient may resume CLD and advance diet as tolerated - May resume DVT ppx - Will follow patient clinically Further recs as per Dr. Diane Joe PGY1 surgery pager: [phone] <Patric Contreras - Last Filed: 05/21/17 11:00> Subjective - Subjective Subjective: Patient was seen and examined at the bedside. Agree with resident's note above. Objective - Vital Signs/Intake and Output Vital Signs (last 24 hours): Temp Pulse Resp BP Pulse Ox 98 F 109 H 18 138/62 94 L 05/21/17 08:24 05/21/17 09:21 05/21/17 08:24 05/21/17 09:21 05/21/17 08:24 - Medications Medications: Current Medications Acetylcysteine (Acetylcysteine 20%) 2 ml INH RBID [facility] Last Admin: 05/21/17 07:58 Dose: 2 ml Albuterol Sulfate (Albuterol 0.083% Inhal Ro (2.5 Mg/3 Ml) Ud) 2.5 mg IH Q4H PRN PRN Reason: Shortness of Breath Albuterol/Ipratropium (Duoneb 3 Mg/0.5 Mg (3 Ml) Ud) 3 ml IH RQ4 [facility] Last Admin: 05/21/17 07:56 Dose: 3 ml Cyproheptadine HCl (Periactin) 4 mg PO BID [facility] Last Admin: 05/21/17 09:23 Dose: 4 mg Doxazosin Mesylate (Cardura) 8 mg PO DAILY [facility] Last Admin: 05/21/17 09:20 Dose: 8 mg Enoxaparin Sodium (Lovenox) 30 mg SC DAILY [facility] PRN Reason: Protocol Last Admin: 05/21/17 09:22 Dose: 30 mg Furosemide (Lasix) 20 mg PO DAILY [facility] Last Admin: 05/21/17 09:21 Dose: 20 mg Glipizide (Glucotrol Xl) 5 mg PO DAILY [facility] Last Admin: 05/21/17 09:21 Dose: Not Given Piperacillin Sod/Tazobactam (Sod 3.375 gm/ Sodium Chloride) 100 mls @ 100 mls/ hr IVPB Q6 [facility] Last Admin: 05/21/17 09:19 Dose: 100 mls/hr Methylprednisolone 40 mg/ (Sodium Chloride) 50 mls @ 100 mls/hr IVPB Q12 [facility] Last Admin: 05/21/17 09:18 Dose: 100 mls/hr Sodium Chloride (Sodium Chloride 0.9%) 1,000 mls @ 80 mls/hr IV .[id number] [facility] Stop: 05/22/17 09:32 Insulin Detemir (Levemir) 15 units SC HS [facility] Last Admin: 05/20/17 21:51 Dose: 15 u Insulin Human Lispro (Humalog) 0 units SC [facility] PRN Reason: Protocol Last Admin: 05/21/17 08:35 Dose: Not Given Losartan Potassium (Cozaar) 100 mg PO DAILY [facility] Last Admin: 05/21/17 09:21 Dose: 100 mg Montelukast Sodium (Singulair) 10 mg PO HS [facility] Last Admin: 05/20/17 21:02 Dose: 10 mg Temazepam (Restoril) 30 mg PO HS [facility] Last Admin: 05/20/17 22:07 Dose: 30 mg Trazodone HCl (Desyrel) 150 mg PO HS [facility] Last Admin: 05/20/17 21:02 Dose: 150 mg Verapamil HCl (Calan Sr Tab) 240 mg PO DAILY [facility] Last Admin: 05/21/17 09:19 Dose: 240 mg - Labs Labs: 05/21/17 05:00 05/21/17 05:00 PT 11.0 Seconds (9.8-13.1) 05/19/17 15:39 INR 1.0 (0.9-1.2) 05/19/17 15:39 APTT 32.5 Seconds (25.6-37.1) 05/19/17 15:39
--- NOTE | 2017-05-21 10:59 | PQF PNEUMO ---
This form is a permanent part of the medical record 05/21/17 Dr. Greene, Please specify possible type of Pneumonia if known. Admitted with generalized weakness, decreased appetite, bilateral leg swelling and abdominal pain. + for decreased coarse breath sounds in the ER. CXR: Vague left basilar opacity nonspecific rule out infiltrate. Given Zithromax and Rocephin in the ER.Currently on Zosyn. Diagnoses include Acute Cholecystitis, Pneumonia and compensated CHF. Clarification of your documentation is requested to better reflect the severity of illness and intensity of treatment of your patient. Indicators present [] Documented diagnosis of pneumonia [] X-ray findings: [] Positive Sputum cultures [] Cough w/ fever [] Abnormal lungs sounds [] Poor gag reflex [] Speech consults/swallow evaluation [] Vent dependence [] Other: [] Location in the medical record that reflects the above clinical findings: [] Treatment Provided: [] PHYSICIAN'S RESPONSE Based on your medical judgment of the clinical indicators outlined above, are you treating this patient for a known or suspected: [] Aspiration pneumonia [] Community acquired pneumonia [] Ventilator associated pneumonia [] Viral pneumonia [] Bacterial pneumonia Please specify organism: [] [] Other, please indicate [] If Unable to Determine, please check the box, sign and date. Present On Admission (POA) Indicator: [] Present at the time of admission [] Not present at the time of admission [] Clinically Undetermined In responding to this query, please exercise your independent professional judgment. The fact that a question is asked does not imply that any particular answer is desired or expected. Thank you for your clarification on this documentation. If you have any questions please call:ext [phone] * Thank you, Erika Pack RN CDMP MTDD
--- NOTE | 2017-05-21 11:15 | CP.PCM.PN ---
Subjective - Date & Time of Evaluation Date of Evaluation: 05/21/17 Time of Evaluation: 11:00 - Subjective Subjective: Patient was seen and examinedbedside. Feeling better, denies any abdominal pain , nausea, vomiting, SOB or chest pian. Complains of not having BM for 3 days ' Hemodynamically stable, afebrile No acute issues overnight.Family and patient opted to conservative treatment Objective - Vital Signs/Intake and Output Vital Signs (last 24 hours): Temp Pulse Resp BP Pulse Ox 98 F 109 H 18 138/62 94 L 05/21/17 08:24 05/21/17 09:21 05/21/17 08:24 05/21/17 09:21 05/21/17 08:24 - Medications Medications: Current Medications Acetylcysteine (Acetylcysteine 20%) 2 ml INH RBID [facility] Last Admin: 05/21/17 07:58 Dose: 2 ml Albuterol Sulfate (Albuterol 0.083% Inhal Ro (2.5 Mg/3 Ml) Ud) 2.5 mg IH Q4H PRN PRN Reason: Shortness of Breath Albuterol/Ipratropium (Duoneb 3 Mg/0.5 Mg (3 Ml) Ud) 3 ml IH RQ4 [facility] Last Admin: 05/21/17 07:56 Dose: 3 ml Cyproheptadine HCl (Periactin) 4 mg PO BID [facility] Last Admin: 05/21/17 09:23 Dose: 4 mg Doxazosin Mesylate (Cardura) 8 mg PO DAILY [facility] Last Admin: 05/21/17 09:20 Dose: 8 mg Enoxaparin Sodium (Lovenox) 30 mg SC DAILY [facility] PRN Reason: Protocol Last Admin: 05/21/17 09:22 Dose: 30 mg Furosemide (Lasix) 20 mg PO DAILY [facility] Last Admin: 05/21/17 09:21 Dose: 20 mg Glipizide (Glucotrol Xl) 5 mg PO DAILY [facility] Last Admin: 05/21/17 09:21 Dose: Not Given Piperacillin Sod/Tazobactam (Sod 3.375 gm/ Sodium Chloride) 100 mls @ 100 mls/ hr IVPB Q6 [facility] Last Admin: 05/21/17 09:19 Dose: 100 mls/hr Methylprednisolone 40 mg/ (Sodium Chloride) 50 mls @ 100 mls/hr IVPB Q12 [facility] Last Admin: 05/21/17 09:18 Dose: 100 mls/hr Sodium Chloride (Sodium Chloride 0.9%) 1,000 mls @ 80 mls/hr IV .[id number] [facility] Stop: 05/22/17 09:32 Insulin Detemir (Levemir) 15 units SC [facility] Last Admin: 05/20/17 21:51 Dose: 15 u Insulin Human Lispro (Humalog) 0 units SC [facility] PRN Reason: Protocol Last Admin: 05/21/17 08:35 Dose: Not Given Losartan Potassium (Cozaar) 100 mg PO DAILY [facility] Last Admin: 05/21/17 09:21 Dose: 100 mg Montelukast Sodium (Singulair) 10 mg PO [facility] Last Admin: 05/20/17 21:02 Dose: 10 mg Temazepam (Restoril) 30 mg PO [facility] Last Admin: 05/20/17 22:07 Dose: 30 mg Trazodone HCl (Desyrel) 150 mg PO [facility] Last Admin: 05/20/17 21:02 Dose: 150 mg Verapamil HCl (Calan Sr Tab) 240 mg PO DAILY [facility] Last Admin: 05/21/17 09:19 Dose: 240 mg - Labs Labs: 05/21/17 05:00 05/21/17 05:00 PT 11.0 Seconds (9.8-13.1) 05/19/17 15:39 INR 1.0 (0.9-1.2) 05/19/17 15:39 APTT 32.5 Seconds (25.6-37.1) 05/19/17 15:39 - Constitutional Appears: Non-toxic, No Acute Distress - Head Exam Head Exam: ATRAUMATIC, NORMAL INSPECTION, NORMOCEPHALIC - Eye Exam Eye Exam: EOMI, Normal appearance, PERRL Pupil Exam: NORMAL ACCOMODATION - ENT Exam ENT Exam: Mucous Membranes Moist, Normal Exam - Neck Exam Neck Exam: Full ROM, Normal Inspection - Respiratory Exam Respiratory Exam: Clear to Ausculation Bilateral. absent: Rhonchi, Wheezes, NORMAL BREATHING PATTERN - Cardiovascular Exam Cardiovascular Exam: REGULAR RHYTHM, RRR, +S1, +S2. absent: JVD - GI/Abdominal Exam GI & Abdominal Exam: Soft, Normal Bowel Sounds. absent: Distended, Guarding, Tenderness, Rebound - Rectal Exam Rectal Exam: Deferred - Extremities Exam Extremities Exam: Full ROM, Normal Capillary Refill, Normal Inspection. absent : Pedal Edema - Back Exam Back Exam: NORMAL INSPECTION - Neurological Exam Neurological Exam: Alert, Awake, CN II-XII Intact, Oriented x3 - Psychiatric Exam Psychiatric exam: Normal Affect, Normal Mood - Skin Skin Exam: Dry, Intact, Pallor, Warm Additional comments: stage I decubitus ulcer Assessment and Plan - Assessment and Plan (Free Text) Assessment: 82 yo female with history of COPD, HTN, DM2 and CHF came in complaining of loss of appetite, upper abdominal pain and generalized weakness since 5 days ago. Denied chest pain, SOB, fever or chills. Also denied nausea, vomiting or diarrhea. She was found to have elevated WBC count . CT abdomen showed distended gallbladder with small stones and pericholecystic fluid suggest cholecystitis ; ileus versus early small bowel obstruction She was admitted and started on IVF and zosyn. Surgery, ID, pulmonary and cardiology were consulted . HIDA scan showed acute cholecystitis. family and patient opted to conservative treatment 1. Abdominal pain Most likely secondary to cholelithiasis with acute cholecystitis and ileus with partial SBO Pain resolved , tolerating liquid intake surgery and ID consulted Started on Zosyn IV HIDA scan positive for acute cholecystitis Family and patient opted to conservative treatment will advance diet as tolerated pain management prn monitor LFTs- Will give lactulose PRN for constipation 2. COPD asymptomatic Duoneb q 4hrs prn for SOB/wheezing on Solumedriol 40 mg Q12 pulmonary consult with Dr. Greene appreciated 3. LLL pneumonia on Zosyn IV pulmonary on consult 4. DM2 BS uncontrolled Hgb A1c 11 accuchek ACHS with low Lispro coverage Increased Levemir from 15 to 20 units SC HS Continue Glipizide diabetic diet 5. HTN BP controlled continue Cardura , losartan and Verapamil 6. CHF, compensated systolic dysfunction stable cardiology consulted 7.Anemia Most likely anemia of chronic disease Monitor for now 8. Sick euthyroid TSH and T3 low Will need repeat levels once acute illness is treated 9. DVT Prophylaxis Lovenox 30mg SC daily 10, Transaminitis Most likely related to Cholelithiasis and cholecystitis continue to monitor
[2017-05-21 11:40] LABS: ANISOCYTOSIS SLIGHT; BANDS 1 % (0-2); LYMPHOCYTE 9 % (20-50); MONOCYTE 1 % (0-10); NEUTROPHIL 89 % (42-75); PLATELET ESTIMATE NORMAL (NORMAL); TOTAL CELLS COUNTED 100
[2017-05-21 11:41] LABS: HYPOCHROMIC SLIGHT
[2017-05-21] MEDS: Sodium Chloride 0.9% 1,000 ML IV SCH ×2 (13:13→21:20)
[2017-05-21] MEDS ORDERED: Insulin Detemir 100 Units/ml Inj SC SCH (22:00)
[2017-05-22] MEDS: Albuterol-Ipratrop 3 mg / 0.5 (3 ml) UD IH SCH ×5 (00:31→12:34)
[2017-05-22] MEDS: Piperacillin/Tazobact 3.375 GM in Sodium Chloride 0.9% 100 ML IVPB SCH ×3 (03:42→16:11)
[2017-05-22 06:52] LABS: HEMOGLOBIN 9.3 g/dL (12.0-16.0); MEAN CELL VOLUME 88.2 fl (81.0-99.0); MEAN CORPUSCULAR HGB CONC 31.8 g/dL (33.0-37.0); RBC 3.31 Mil/uL (3.80-5.20); RED CELL DISTRIBUTION WIDTH 14.8 % (11.5-14.5); WHITE BLOOD COUNT 12.8 K/uL (4.8-10.8)
[2017-05-22 07:12] LABS: ALB/GLOB RATIO 1.1 (1.0-2.1); ALT/SGPT 191 U/L (9-52); AST/SGOT 23 U/L (14-36); BLOOD UREA NITROGEN 25 mg/dl (7-17); CALCIUM 8.1 mg/dL (8.4-10.2); GFR AFRICAN-AMERICAN > 60; GFR NON-AFRICAN AMERICAN 60
[2017-05-22] MEDS: Acetylcysteine 20% Inhal Soln (4ml) INH SCH (07:44)
--- NOTE | 2017-05-22 07:44 | CP.PCM.PN ---
<Sahil Zapata - Last Filed: 05/22/17 07:42> Subjective - Date & Time of Evaluation Date of Evaluation: 05/22/17 Time of Evaluation: 07:42 - Subjective Subjective: Surgery for Dr. Contreras Pt s&jenni BRAXTON. Tolerating diet. Amb. + void. Denies pain/F/C/N/V/D/CP/SOB Objective - Vital Signs/Intake and Output Vital Signs (last 24 hours): Temp Pulse Resp BP Pulse Ox 98.1 F 95 H 20 173/75 H 95 05/22/17 04:08 05/22/17 04:08 05/22/17 04:08 05/22/17 04:08 05/22/17 04:08 - Medications Medications: Current Medications Acetylcysteine (Acetylcysteine 20%) 2 ml INH RBID [facility] Last Admin: 05/21/17 19:33 Dose: 2 ml Albuterol Sulfate (Albuterol 0.083% Inhal Ro (2.5 Mg/3 Ml) Ud) 2.5 mg IH Q4H PRN PRN Reason: Shortness of Breath Albuterol/Ipratropium (Duoneb 3 Mg/0.5 Mg (3 Ml) Ud) 3 ml IH RQ4 [facility] Last Admin: 05/22/17 04:55 Dose: 3 ml Cyproheptadine HCl (Periactin) 4 mg PO BID [facility] Last Admin: 05/21/17 16:48 Dose: 4 mg Doxazosin Mesylate (Cardura) 8 mg PO DAILY [facility] Last Admin: 05/21/17 09:20 Dose: 8 mg Enoxaparin Sodium (Lovenox) 30 mg SC DAILY [facility] PRN Reason: Protocol Last Admin: 05/21/17 09:22 Dose: 30 mg Furosemide (Lasix) 20 mg PO DAILY [facility] Last Admin: 05/21/17 09:21 Dose: 20 mg Glipizide (Glucotrol Xl) 5 mg PO DAILY [facility] Last Admin: 05/21/17 09:21 Dose: Not Given Piperacillin Sod/Tazobactam (Sod 3.375 gm/ Sodium Chloride) 100 mls @ 100 mls/ hr IVPB Q6 [facility] Last Admin: 05/22/17 03:42 Dose: 100 mls/hr Methylprednisolone 40 mg/ (Sodium Chloride) 50 mls @ 100 mls/hr IVPB Q12 [facility] Last Admin: 05/21/17 20:23 Dose: 100 mls/hr Sodium Chloride (Sodium Chloride 0.9%) 1,000 mls @ 80 mls/hr IV .[id number] [facility] Stop: 05/22/17 09:32 Last Admin: 05/21/17 21:20 Dose: Not Given Insulin Detemir (Levemir) 20 units SC [facility] Last Admin: 05/21/17 21:17 Dose: 20 units Insulin Human Lispro (Humalog) 0 units SC [facility] PRN Reason: Protocol Last Admin: 05/21/17 21:46 Dose: Not Given Losartan Potassium (Cozaar) 100 mg PO DAILY [facility] Last Admin: 05/21/17 09:21 Dose: 100 mg Montelukast Sodium (Singulair) 10 mg PO [facility] Last Admin: 05/21/17 21:15 Dose: 10 mg Potassium Chloride (K-Dur 20 Meq Er Tab) 20 meq PO ONCE ONE Stop: 05/22/17 07:42 Temazepam (Restoril) 30 mg PO [facility] Last Admin: 05/21/17 21:44 Dose: 30 mg Trazodone HCl (Desyrel) 150 mg PO [facility] Last Admin: 05/21/17 21:15 Dose: 150 mg Verapamil HCl (Calan Sr Tab) 240 mg PO DAILY [facility] Last Admin: 05/21/17 09:19 Dose: 240 mg - Labs Labs: 05/22/17 05:30 05/22/17 05:30 PT 11.0 Seconds (9.8-13.1) 05/19/17 15:39 INR 1.0 (0.9-1.2) 05/19/17 15:39 APTT 32.5 Seconds (25.6-37.1) 05/19/17 15:39 - Constitutional Appears: No Acute Distress - Head Exam Head Exam: ATRAUMATIC, NORMAL INSPECTION, NORMOCEPHALIC - Eye Exam Eye Exam: EOMI, Normal appearance, PERRL Pupil Exam: NORMAL ACCOMODATION, PERRL - Neck Exam Neck Exam: Full ROM, Normal Inspection. absent: Lymphadenopathy - Respiratory Exam Respiratory Exam: Clear to Ausculation Bilateral, NORMAL BREATHING PATTERN - Cardiovascular Exam Cardiovascular Exam: REGULAR RHYTHM, +S1, +S2. absent: Murmur - GI/Abdominal Exam GI & Abdominal Exam: Soft, Normal Bowel Sounds. absent: Distended, Firm, Guarding, Rigid, Tenderness - Exam Exam: NORMAL INSPECTION - Extremities Exam Extremities Exam: Full ROM, Normal Capillary Refill, Normal Inspection. absent : Joint Swelling, Pedal Edema - Back Exam Back Exam: NORMAL INSPECTION - Neurological Exam Neurological Exam: Alert, Awake, CN II-XII Intact, Normal Gait, Oriented x3 - Psychiatric Exam Psychiatric exam: Normal Affect, Normal Mood - Skin Skin Exam: Dry, Intact, Normal Color, Warm Assessment and Plan - Assessment and Plan (Free Text) Assessment: 82yo F with PMHx of HTN, COPD, DM, CHF. General surgery consulted for abdominal pain: improved - CT with distended gallbladder with small stones - Abd US - Possible acute cholecystitis - HIDA scan - concerning for cholecystitis - Leukocytosis improving, afebrile - We discussed plan and exam findings with patient and family at length including the possibility of surgery vs. conservative treatment. Family and patient elected to not undergo surgical intervention at this time. - Continue ABX as per ID - Patient may advance diet as tolerated - May resume DVT ppx - Will follow patient clinically Further recs as per Dr. Contreras <Patric Contreras - Last Filed: 05/22/17 10:37> Subjective - Date & Time of Evaluation Time of Evaluation: 09:45 - Subjective Subjective: Patient was seen and examined at the bedside. Agree with resident's note above Objective - Vital Signs/Intake and Output Vital Signs (last 24 hours): Temp Pulse Resp BP Pulse Ox 97.5 F L 105 H 18 139/67 96 05/22/17 08:23 05/22/17 09:19 05/22/17 08:23 05/22/17 09:20 05/22/17 08:23 - Medications Medications: Current Medications Acetylcysteine (Acetylcysteine 20%) 2 ml INH RBID [facility] Last Admin: 05/22/17 07:44 Dose: 2 ml Albuterol Sulfate (Albuterol 0.083% Inhal Ro (2.5 Mg/3 Ml) Ud) 2.5 mg IH Q4H PRN PRN Reason: Shortness of Breath Albuterol/Ipratropium (Duoneb 3 Mg/0.5 Mg (3 Ml) Ud) 3 ml IH RQ4 [facility] Last Admin: 05/22/17 07:44 Dose: 3 ml Cyproheptadine HCl (Periactin) 4 mg PO BID [facility] Last Admin: 05/22/17 09:21 Dose: 4 mg Doxazosin Mesylate (Cardura) 8 mg PO DAILY [facility] Last Admin: 05/22/17 09:19 Dose: 8 mg Enoxaparin Sodium (Lovenox) 30 mg SC DAILY [facility] PRN Reason: Protocol Last Admin: 05/22/17 09:21 Dose: 30 mg Furosemide (Lasix) 20 mg PO DAILY [facility] Last Admin: 05/22/17 09:20 Dose: 20 mg Glipizide (Glucotrol Xl) 5 mg PO DAILY [facility] Last Admin: 05/22/17 09:24 Dose: 5 mg Piperacillin Sod/Tazobactam (Sod 3.375 gm/ Sodium Chloride) 100 mls @ 100 mls/ hr IVPB Q6 [facility] Last Admin: 05/22/17 09:23 Dose: 100 mls/hr Methylprednisolone 40 mg/ (Sodium Chloride) 50 mls @ 100 mls/hr IVPB Q12 [facility] Last Admin: 05/22/17 09:23 Dose: 100 mls/hr Insulin Detemir (Levemir) 20 units SC HS [facility] Last Admin: 05/21/17 21:17 Dose: 20 units Insulin Human Lispro (Humalog) 0 units SC ACHS [facility] PRN Reason: Protocol Last Admin: 05/22/17 09:24 Dose: 3 unit Losartan Potassium (Cozaar) 100 mg PO DAILY [facility] Last Admin: 05/21/17 09:21 Dose: 100 mg Montelukast Sodium (Singulair) 10 mg PO HS [facility] Last Admin: 05/21/17 21:15 Dose: 10 mg Temazepam (Restoril) 30 mg PO HS [facility] Last Admin: 05/21/17 21:44 Dose: 30 mg Trazodone HCl (Desyrel) 150 mg PO HS [facility] Last Admin: 05/21/17 21:15 Dose: 150 mg Verapamil HCl (Calan Sr Tab) 240 mg PO DAILY [facility] Last Admin: 05/22/17 09:19 Dose: 240 mg - Labs Labs: 05/22/17 05:30 05/22/17 05:30 PT 11.0 Seconds (9.8-13.1) 05/19/17 15:39 INR 1.0 (0.9-1.2) 05/19/17 15:39 APTT 32.5 Seconds (25.6-37.1) 05/19/17 15:39
[2017-05-22] MEDS ORDERED: Potassium Chloride 20 mEq ER Tab PO ONE (08:00)
[2017-05-22 08:23] VITALS: RESP 18
[2017-05-22] MEDS: Verapamil 240 mg ER Tab PO SCH (09:19)
[2017-05-22] MEDS: Enoxaparin 30 mg Syringe SC SCH (09:21)
[2017-05-22] MEDS: methylPREDNISolone 40 MG in Sodium Chloride 0.9% 50 ML IVPB SCH (09:23)
[2017-05-22] MEDS: GlipiZIDE 5 mg SR Tab PO SCH (09:24)
[2017-05-22] MEDS: Insulin Lispro (humaLOG) 100 Units/ml Inj SC SCH ×2 (09:24→12:57)
--- NOTE | 2017-05-22 11:03 | CP.PCM.PN ---
Subjective - Date & Time of Evaluation Date of Evaluation: 05/22/17 Time of Evaluation: 13:00 - Subjective Subjective: ID Note- pt. seen and examined today. pt. sitting in chair and in good spirits and denies any fever, denies any abdominal pain and states her abdominal pain has resolved, denies any n/v, denies any diarrhea. as per pt's family she is being d/c home and they will continue with home IV abx and home nurse. Objective - Vital Signs/Intake and Output Vital Signs (last 24 hours): Temp Pulse Resp BP Pulse Ox 97.5 F L 105 H 18 139/67 96 05/22/17 08:23 05/22/17 10:56 05/22/17 08:23 05/22/17 10:56 05/22/17 08:23 - Medications Medications: Current Medications Acetylcysteine (Acetylcysteine 20%) 2 ml INH RBID [facility] Last Admin: 05/22/17 07:44 Dose: 2 ml Albuterol Sulfate (Albuterol 0.083% Inhal Ro (2.5 Mg/3 Ml) Ud) 2.5 mg IH Q4H PRN PRN Reason: Shortness of Breath Albuterol/Ipratropium (Duoneb 3 Mg/0.5 Mg (3 Ml) Ud) 3 ml IH RQ4 [facility] Last Admin: 05/22/17 07:44 Dose: 3 ml Cyproheptadine HCl (Periactin) 4 mg PO BID [facility] Last Admin: 05/22/17 09:21 Dose: 4 mg Doxazosin Mesylate (Cardura) 8 mg PO DAILY [facility] Last Admin: 05/22/17 09:19 Dose: 8 mg Enoxaparin Sodium (Lovenox) 30 mg SC DAILY [facility] PRN Reason: Protocol Last Admin: 05/22/17 09:21 Dose: 30 mg Furosemide (Lasix) 20 mg PO DAILY [facility] Last Admin: 05/22/17 09:20 Dose: 20 mg Glipizide (Glucotrol Xl) 5 mg PO DAILY [facility] Last Admin: 05/22/17 09:24 Dose: 5 mg Piperacillin Sod/Tazobactam (Sod 3.375 gm/ Sodium Chloride) 100 mls @ 100 mls/ hr IVPB Q6 [facility] Last Admin: 05/22/17 09:23 Dose: 100 mls/hr Methylprednisolone 40 mg/ (Sodium Chloride) 50 mls @ 100 mls/hr IVPB Q12 [facility] Last Admin: 05/22/17 09:23 Dose: 100 mls/hr Insulin Detemir (Levemir) 20 units SC [facility] Last Admin: 05/21/17 21:17 Dose: 20 units Insulin Human Lispro (Humalog) 0 units SC ACHS [facility] PRN Reason: Protocol Last Admin: 05/22/17 09:24 Dose: 3 unit Losartan Potassium (Cozaar) 100 mg PO DAILY [facility] Last Admin: 05/22/17 10:56 Dose: 100 mg Montelukast Sodium (Singulair) 10 mg PO HS [facility] Last Admin: 05/21/17 21:15 Dose: 10 mg Temazepam (Restoril) 30 mg PO HS [facility] Last Admin: 05/21/17 21:44 Dose: 30 mg Trazodone HCl (Desyrel) 150 mg PO HS [facility] Last Admin: 05/21/17 21:15 Dose: 150 mg Verapamil HCl (Calan Sr Tab) 240 mg PO DAILY [facility] Last Admin: 05/22/17 09:19 Dose: 240 mg - Labs Labs: 0 - Constitutional Appears: Non-toxic, No Acute Distress - Head Exam Head Exam: ATRAUMATIC - Eye Exam Eye Exam: EOMI - ENT Exam ENT Exam: Normal Oropharynx - Neck Exam Neck Exam: Full ROM - Respiratory Exam Respiratory Exam: Clear to Ausculation Bilateral, NORMAL BREATHING PATTERN - Cardiovascular Exam Cardiovascular Exam: RRR, +S1, +S2 - GI/Abdominal Exam GI & Abdominal Exam: Soft, Normal Bowel Sounds Additional comments: NT, ND No guarding, no rebound - Extremities Exam Extremities Exam: Normal Inspection - Neurological Exam Neurological Exam: Alert, Awake, Oriented x3 - Additional Findings Additional findings: Laboratory Results - last 72 hr 05/19/17 05/19/17 05/19/17 15:37 15:39 15:48 WBC RBC Hgb Hct MCV MCH MCHC RDW Plt Count MPV Neut % (Auto) Lymph % (Auto) Sac % (Auto) Eos % (Auto) Baso % (Auto) Neut # Lymph # Sac # Eos # Baso # Neutrophils % (Manual) Band Neutrophils % Lymphocytes % (Manual) Monocytes % (Manual) Platelet Estimate Hypochromasia (manual) Anisocytosis (manual) PT 11.0 INR 1.0 APTT 32.5 pCO2 43 pO2 80 HCO3 30.2 H ABG pH 7.47 H ABG Total CO2 32.6 H ABG O2 Saturation 99.0 H ABG Base Excess 6.8 H Roger Test Yes ABG Potassium 4.4 VBG pH VBG pCO2 VBG HCO3 VBG Total CO2 VBG O2 Sat (Calc) VBG Base Excess VBG Potassium A-a O2 Difference 94.0 Sodium 133.0 Chloride 99.0 Glucose 278 H Lactate 2.2 H Vent Mode N/c FiO2 32.0 Potassium Carbon Dioxide Anion Gap BUN Creatinine Est GFR ( Amer) Est GFR (Non-Af Amer) POC Glucose (mg/dL) 282 H Random Glucose Hemoglobin A1c Calcium Phosphorus Magnesium Total Bilirubin Direct Bilirubin AST ALT Alkaline Phosphatase Troponin I NT-Pro-B Natriuret Pep Total Protein Albumin Globulin Albumin/Globulin Ratio Thyroxine (T4) Total T3 TSH 3rd Generation Arterial Blood Potassium 4.4 Venous Blood Potassium Urine Color Urine Clarity Urine pH Ur Specific [place] Urine Protein Urine Glucose (UA) Urine Ketones Urine Blood Urine Nitrate Urine Bilirubin Urine Urobilinogen Ur Leukocyte Esterase Urine Microscopic WBC Ur Squamous Epith Cells Urine Bacteria Hyaline Casts Hepatitis A IgM Ab Hep Bs Antigen Hep B Core IgM Ab Hepatitis C Antibody 05/19/17 05/19/17 05/19/17 15:55 16:00 19:17 WBC 12.9 H RBC 3.55 L Hgb 10.1 L Hct 31.3 L MCV 88.1 MCH 28.5 MCHC 32.4 L RDW 15.0 H Plt Count 349 MPV 8.2 Neut % (Auto) 82.1 H Lymph % (Auto) 10.9 L Sac % (Auto) 5.2 Eos % (Auto) 1.6 Baso % (Auto) 0.2 Neut # 10.6 H Lymph # 1.4 Sac # 0.7 Eos # 0.2 Baso # 0.0 Neutrophils % (Manual) Band Neutrophils % Lymphocytes % (Manual) Monocytes % (Manual) Platelet Estimate Hypochromasia (manual) Anisocytosis (manual) PT INR APTT pCO2 pO2 HCO3 ABG pH ABG Total CO2 ABG O2 Saturation ABG Base Excess Roger Test ABG Potassium VBG pH VBG pCO2 VBG HCO3 VBG Total CO2 VBG O2 Sat (Calc) VBG Base Excess VBG Potassium A-a O2 Difference Sodium 133 Chloride 97 L Glucose Lactate Vent Mode FiO2 Potassium 5.0 Carbon Dioxide 28 Anion Gap 13 BUN 44 H Creatinine 1.0 Est GFR ( Amer) > 60 Est GFR (Non-Af Amer) 53 POC Glucose (mg/dL) 283 H Random Glucose 266 H Hemoglobin A1c Calcium 8.9 Phosphorus 3.2 Magnesium 1.8 Total Bilirubin 0.6 Direct Bilirubin AST 76 H D ALT 424 H D Alkaline Phosphatase 129 H D Troponin I < 0.0120 NT-Pro-B Natriuret Pep 567 Total Protein 6.1 L Albumin 3.0 L Globulin 3.0 Albumin/Globulin Ratio 1.0 Thyroxine (T4) Total T3 TSH 3rd Generation Arterial Blood Potassium Venous Blood Potassium Urine Color Urine Clarity Urine pH Ur Specific [place] Urine Protein Urine Glucose (UA) Urine Ketones Urine Blood Urine Nitrate Urine Bilirubin Urine Urobilinogen Ur Leukocyte Esterase Urine Microscopic WBC Ur Squamous Epith Cells Urine Bacteria Hyaline Casts Hepatitis A IgM Ab Hep Bs Antigen Hep B Core IgM Ab Hepatitis C Antibody 05/19/17 05/19/17 05/19/17 19:22 20:06 20:15 WBC RBC Hgb Hct MCV MCH MCHC RDW Plt Count MPV Neut % (Auto) Lymph % (Auto) Sac % (Auto) Eos % (Auto) Baso % (Auto) Neut # Lymph # Sac # Eos # Baso # Neutrophils % (Manual) Band Neutrophils % Lymphocytes % (Manual) Monocytes % (Manual) Platelet Estimate Hypochromasia (manual) Anisocytosis (manual) PT INR APTT pCO2 pO2 50 HCO3 ABG pH ABG Total CO2 ABG O2 Saturation ABG Base Excess Roger Test ABG Potassium VBG pH 7.42 VBG pCO2 48 VBG HCO3 28.9 VBG Total CO2 32.6 H VBG O2 Sat (Calc) 90.7 H VBG Base Excess 5.5 H VBG Potassium 4.6 A-a O2 Difference Sodium 135.0 Chloride 102.0 Glucose 262 H Lactate 1.0 Vent Mode FiO2 21.0 Potassium Carbon Dioxide Anion Gap BUN Creatinine Est GFR ( Amer) Est GFR (Non-Af Amer) POC Glucose (mg/dL) Random Glucose Hemoglobin A1c Calcium Phosphorus Magnesium Total Bilirubin Direct Bilirubin AST ALT Alkaline Phosphatase Troponin I NT-Pro-B Natriuret Pep 500 Total Protein Albumin Globulin Albumin/Globulin Ratio Thyroxine (T4) Total T3 TSH 3rd Generation Arterial Blood Potassium Venous Blood Potassium 4.6 Urine Color Yellow Urine Clarity Slighty-cloudy Urine pH 5.0 Ur Specific [place] 1.017 Urine Protein Negative Urine Glucose (UA) 50 Urine Ketones Trace Urine Blood Negative Urine Nitrate Negative Urine Bilirubin Negative Urine Urobilinogen 0.2-1.0 Ur Leukocyte Esterase Large Urine Microscopic WBC 68 H Ur Squamous Epith Cells 1 Urine Bacteria Rare Hyaline Casts 0-2 Hepatitis A IgM Ab Hep Bs Antigen Hep B Core IgM Ab Hepatitis C Antibody 05/19/17 05/19/17 05/20/17 20:15 22:53 05:15 WBC 17.7 H RBC 3.39 L Hgb 9.9 L Hct 30.0 L MCV 88.6 MCH 29.1 MCHC 32.8 L RDW 15.3 H Plt Count 362 MPV 7.9 Neut % (Auto) 95.9 H Lymph % (Auto) 3.3 L Sac % (Auto) 0.8 Eos % (Auto) 0.0 Baso % (Auto) 0.0 Neut # 16.9 H Lymph # 0.6 L Sac # 0.1 Eos # 0.0 Baso # 0.0 Neutrophils % (Manual) 92 H Band Neutrophils % 3 H Lymphocytes % (Manual) 4 L Monocytes % (Manual) 1 Platelet Estimate Normal Hypochromasia (manual) Moderate Anisocytosis (manual) Slight PT INR APTT pCO2 pO2 HCO3 ABG pH ABG Total CO2 ABG O2 Saturation ABG Base Excess Roger Test ABG Potassium VBG pH VBG pCO2 VBG HCO3 VBG Total CO2 VBG O2 Sat (Calc) VBG Base Excess VBG Potassium A-a O2 Difference Sodium Chloride Glucose Lactate Vent Mode FiO2 Potassium Carbon Dioxide Anion Gap BUN Creatinine Est GFR ( Amer) Est GFR (Non-Af Amer) POC Glucose (mg/dL) 307 H Random Glucose Hemoglobin A1c Calcium Phosphorus Magnesium Total Bilirubin Direct Bilirubin AST ALT Alkaline Phosphatase Troponin I NT-Pro-B Natriuret Pep Total Protein Albumin Globulin Albumin/Globulin Ratio Thyroxine (T4) Total T3 TSH 3rd Generation Arterial Blood Potassium Venous Blood Potassium Urine Color Urine Clarity Urine pH Ur Specific [place] Urine Protein Urine Glucose (UA) Urine Ketones Urine Blood Urine Nitrate Urine Bilirubin Urine Urobilinogen Ur Leukocyte Esterase Urine Microscopic WBC Ur Squamous Epith Cells Urine Bacteria Hyaline Casts Hepatitis A IgM Ab Negative Hep Bs Antigen Negative Hep B Core IgM Ab Negative Hepatitis C Antibody Negative 05/20/17 05/20/17 05/20/17 05:15 05:15 05:18 WBC RBC Hgb Hct MCV MCH MCHC RDW Plt Count MPV Neut % (Auto) Lymph % (Auto) Sac % (Auto) Eos % (Auto) Baso % (Auto) Neut # Lymph # Sac # Eos # Baso # Neutrophils % (Manual) Band Neutrophils % Lymphocytes % (Manual) Monocytes % (Manual) Platelet Estimate Hypochromasia (manual) Anisocytosis (manual) PT INR APTT pCO2 pO2 HCO3 ABG pH ABG Total CO2 ABG O2 Saturation ABG Base Excess Roger Test ABG Potassium VBG pH VBG pCO2 VBG HCO3 VBG Total CO2 VBG O2 Sat (Calc) VBG Base Excess VBG Potassium A-a O2 Difference Sodium 141 Chloride 102 Glucose Lactate Vent Mode FiO2 Potassium 4.9 Carbon Dioxide 31 H Anion Gap 13 BUN 31 H Creatinine 0.8 Est GFR ( Amer) > 60 Est GFR (Non-Af Amer) > 60 POC Glucose (mg/dL) 266 H Random Glucose 270 H Hemoglobin A1c 11.4 H D Calcium 8.7 Phosphorus Magnesium Total Bilirubin 0.4 Direct Bilirubin 0.4 AST 46 H D ALT 351 H Alkaline Phosphatase 129 H Troponin I NT-Pro-B Natriuret Pep Total Protein 5.9 L Albumin 3.0 L Globulin 3.0 Albumin/Globulin Ratio 1.0 Thyroxine (T4) 7.58 Total T3 0.550 L TSH 3rd Generation 0.40 L Arterial Blood Potassium Venous Blood Potassium Urine Color Urine Clarity Urine pH Ur Specific [place] Urine Protein Urine Glucose (UA) Urine Ketones Urine Blood Urine Nitrate Urine Bilirubin Urine Urobilinogen Ur Leukocyte Esterase Urine Microscopic WBC Ur Squamous Epith Cells Urine Bacteria Hyaline Casts Hepatitis A IgM Ab Hep Bs Antigen Hep B Core IgM Ab Hepatitis C Antibody 05/20/17 05/20/17 05/20/17 10:51 17:00 21:26 WBC RBC Hgb Hct MCV MCH MCHC RDW Plt Count MPV Neut % (Auto) Lymph % (Auto) Sac % (Auto) Eos % (Auto) Baso % (Auto) Neut # Lymph # Sac # Eos # Baso # Neutrophils % (Manual) Band Neutrophils % Lymphocytes % (Manual) Monocytes % (Manual) Platelet Estimate Hypochromasia (manual) Anisocytosis (manual) PT INR APTT pCO2 pO2 HCO3 ABG pH ABG Total CO2 ABG O2 Saturation ABG Base Excess Roger Test ABG Potassium VBG pH VBG pCO2 VBG HCO3 VBG Total CO2 VBG O2 Sat (Calc) VBG Base Excess VBG Potassium A-a O2 Difference Sodium Chloride Glucose Lactate Vent Mode FiO2 Potassium Carbon Dioxide Anion Gap BUN Creatinine Est GFR ( Amer) Est GFR (Non-Af Amer) POC Glucose (mg/dL) 399 H 264 H 231 H Random Glucose Hemoglobin A1c Calcium Phosphorus Magnesium Total Bilirubin Direct Bilirubin AST ALT Alkaline Phosphatase Troponin I NT-Pro-B Natriuret Pep Total Protein Albumin Globulin Albumin/Globulin Ratio Thyroxine (T4) Total T3 TSH 3rd Generation Arterial Blood Potassium Venous Blood Potassium Urine Color Urine Clarity Urine pH Ur Specific [place] Urine Protein Urine Glucose (UA) Urine Ketones Urine Blood Urine Nitrate Urine Bilirubin Urine Urobilinogen Ur Leukocyte Esterase Urine Microscopic WBC Ur Squamous Epith Cells Urine Bacteria Hyaline Casts Hepatitis A IgM Ab Hep Bs Antigen Hep B Core IgM Ab Hepatitis C Antibody 05/21/17 05/21/17 05/21/17 05:00 05:00 05:26 WBC 14.2 H RBC 3.18 L Hgb 9.2 L Hct 28.0 L MCV 88.1 MCH 28.8 MCHC 32.7 L RDW 14.9 H Plt Count 365 MPV 7.8 Neut % (Auto) 94.3 H Lymph % (Auto) 4.4 L Sac % (Auto) 1.2 Eos % (Auto) 0.0 Baso % (Auto) 0.1 Neut # 13.4 H Lymph # 0.6 L Sac # 0.2 Eos # 0.0 Baso # 0.0 Neutrophils % (Manual) 89 H Band Neutrophils % 1 Lymphocytes % (Manual) 9 L Monocytes % (Manual) 1 Platelet Estimate Normal Hypochromasia (manual) Slight Anisocytosis (manual) Slight PT INR APTT pCO2 pO2 HCO3 ABG pH ABG Total CO2 ABG O2 Saturation ABG Base Excess Roger Test ABG Potassium VBG pH VBG pCO2 VBG HCO3 VBG Total CO2 VBG O2 Sat (Calc) VBG Base Excess VBG Potassium A-a O2 Difference Sodium 141 Chloride 105 Glucose Lactate Vent Mode FiO2 Potassium 4.4 Carbon Dioxide 30 Anion Gap 11 BUN 29 H Creatinine 0.9 Est GFR ( Amer) > 60 Est GFR (Non-Af Amer) 60 POC Glucose (mg/dL) 184 H Random Glucose 185 H Hemoglobin A1c Calcium 8.3 L Phosphorus Magnesium Total Bilirubin 0.3 Direct Bilirubin AST 38 H ALT 242 H D Alkaline Phosphatase 106 Troponin I NT-Pro-B Natriuret Pep Total Protein 5.6 L Albumin 2.9 L Globulin 2.7 Albumin/Globulin Ratio 1.1 Thyroxine (T4) Total T3 TSH 3rd Generation Arterial Blood Potassium Venous Blood Potassium Urine Color Urine Clarity Urine pH Ur Specific [place] Urine Protein Urine Glucose (UA) Urine Ketones Urine Blood Urine Nitrate Urine Bilirubin Urine Urobilinogen Ur Leukocyte Esterase Urine Microscopic WBC Ur Squamous Epith Cells Urine Bacteria Hyaline Casts Hepatitis A IgM Ab Hep Bs Antigen Hep B Core IgM Ab Hepatitis C Antibody 05/21/17 05/21/17 05/21/17 11:12 16:01 21:32 WBC RBC Hgb Hct MCV MCH MCHC RDW Plt Count MPV Neut % (Auto) Lymph % (Auto) Sac % (Auto) Eos % (Auto) Baso % (Auto) Neut # Lymph # Sac # Eos # Baso # Neutrophils % (Manual) Band Neutrophils % Lymphocytes % (Manual) Monocytes % (Manual) Platelet Estimate Hypochromasia (manual) Anisocytosis (manual) PT INR APTT pCO2 pO2 HCO3 ABG pH ABG Total CO2 ABG O2 Saturation ABG Base Excess Roger Test ABG Potassium VBG pH VBG pCO2 VBG HCO3 VBG Total CO2 VBG O2 Sat (Calc) VBG Base Excess VBG Potassium A-a O2 Difference Sodium Chloride Glucose Lactate Vent Mode FiO2 Potassium Carbon Dioxide Anion Gap BUN Creatinine Est GFR ( Amer) Est GFR (Non-Af Amer) POC Glucose (mg/dL) 263 H 308 H 251 H Random Glucose Hemoglobin A1c Calcium Phosphorus Magnesium Total Bilirubin Direct Bilirubin AST ALT Alkaline Phosphatase Troponin I NT-Pro-B Natriuret Pep Total Protein Albumin Globulin Albumin/Globulin Ratio Thyroxine (T4) Total T3 TSH 3rd Generation Arterial Blood Potassium Venous Blood Potassium Urine Color Urine Clarity Urine pH Ur Specific [place] Urine Protein Urine Glucose (UA) Urine Ketones Urine Blood Urine Nitrate Urine Bilirubin Urine Urobilinogen Ur Leukocyte Esterase Urine Microscopic WBC Ur Squamous Epith Cells Urine Bacteria Hyaline Casts Hepatitis A IgM Ab Hep Bs Antigen Hep B Core IgM Ab Hepatitis C Antibody 05/22/17 05/22/17 05/22/17 05:30 05:30 05:46 WBC 12.8 H RBC 3.31 L Hgb 9.3 L Hct 29.2 L MCV 88.2 MCH 28.0 MCHC 31.8 L RDW 14.8 H Plt Count 381 MPV Neut % (Auto) Lymph % (Auto) Sac % (Auto) Eos % (Auto) Baso % (Auto) Neut # Lymph # Sac # Eos # Baso # Neutrophils % (Manual) Band Neutrophils % Lymphocytes % (Manual) Monocytes % (Manual) Platelet Estimate Hypochromasia (manual) Anisocytosis (manual) PT INR APTT pCO2 pO2 HCO3 ABG pH ABG Total CO2 ABG O2 Saturation ABG Base Excess Roger Test ABG Potassium VBG pH VBG pCO2 VBG HCO3 VBG Total CO2 VBG O2 Sat (Calc) VBG Base Excess VBG Potassium A-a O2 Difference Sodium 142 Chloride 104 Glucose Lactate Vent Mode FiO2 Potassium 3.5 L Carbon Dioxide 29 Anion Gap 13 BUN 25 H Creatinine 0.9 Est GFR ( Amer) > 60 Est GFR (Non-Af Amer) 60 POC Glucose (mg/dL) 228 H Random Glucose 207 H Hemoglobin A1c Calcium 8.1 L Phosphorus Magnesium Total Bilirubin 0.2 Direct Bilirubin AST 23 ALT 191 H D Alkaline Phosphatase 94 Troponin I NT-Pro-B Natriuret Pep Total Protein 5.8 L Albumin 3.0 L Globulin 2.8 Albumin/Globulin Ratio 1.1 Thyroxine (T4) Total T3 TSH 3rd Generation Arterial Blood Potassium Venous Blood Potassium Urine Color Urine Clarity Urine pH Ur Specific [place] Urine Protein Urine Glucose (UA) Urine Ketones Urine Blood Urine Nitrate Urine Bilirubin Urine Urobilinogen Ur Leukocyte Esterase Urine Microscopic WBC Ur Squamous Epith Cells Urine Bacteria Hyaline Casts Hepatitis A IgM Ab Hep Bs Antigen Hep B Core IgM Ab Hepatitis C Antibody 05/22/17 10:51 WBC RBC Hgb Hct MCV MCH MCHC RDW Plt Count MPV Neut % (Auto) Lymph % (Auto) Sac % (Auto) Eos % (Auto) Baso % (Auto) Neut # Lymph # Sac # Eos # Baso # Neutrophils % (Manual) Band Neutrophils % Lymphocytes % (Manual) Monocytes % (Manual) Platelet Estimate Hypochromasia (manual) Anisocytosis (manual) PT INR APTT pCO2 pO2 HCO3 ABG pH ABG Total CO2 ABG O2 Saturation ABG Base Excess Roger Test ABG Potassium VBG pH VBG pCO2 VBG HCO3 VBG Total CO2 VBG O2 Sat (Calc) VBG Base Excess VBG Potassium A-a O2 Difference Sodium Chloride Glucose Lactate Vent Mode FiO2 Potassium Carbon Dioxide Anion Gap BUN Creatinine Est GFR ( Amer) Est GFR (Non-Af Amer) POC Glucose (mg/dL) 313 H Random Glucose Hemoglobin A1c Calcium Phosphorus Magnesium Total Bilirubin Direct Bilirubin AST ALT Alkaline Phosphatase Troponin I NT-Pro-B Natriuret Pep Total Protein Albumin Globulin Albumin/Globulin Ratio Thyroxine (T4) Total T3 TSH 3rd Generation Arterial Blood Potassium Venous Blood Potassium Urine Color Urine Clarity Urine pH Ur Specific [place] Urine Protein Urine Glucose (UA) Urine Ketones Urine Blood Urine Nitrate Urine Bilirubin Urine Urobilinogen Ur Leukocyte Esterase Urine Microscopic WBC Ur Squamous Epith Cells Urine Bacteria Hyaline Casts Hepatitis A IgM Ab Hep Bs Antigen Hep B Core IgM Ab Hepatitis C Antibody Microbiology 05/19/17 20:06 Urine Urine Culture - Final Escherichia Coli 05/20/17 Unknown Sputum Gram Stain - Final 05/20/17 16:30 Blood-Venous Blood Culture - Preliminary NO GROWTH AFTER 24 HOURS 05/19/17 15:40 Blood Blood Culture - Preliminary NO GROWTH AFTER 48 HOURS 05/19/17 15:15 Blood Blood Culture - Preliminary NO GROWTH AFTER 48 HOURS Assessment and Plan (1) Cholelithiasis Status: Acute (2) Diabetes Status: Acute (3) Leukocytosis Status: Acute (4) COPD (chronic obstructive pulmonary disease) Status: Acute - Assessment and Plan (Free Text) Assessment: A/P- 82 year old female with pmh of DM II, COPD on home oxygen, HTN admitted with abd pain and leukocytosis found to have cholelithiasis and cholecystitis. clinically much improved. remains afebrile Leukocytosis much lower and almost normalized. blood cx- neg x 3 Urine cx- e.coli sens to zosyn no surgical intervention as per surgeon transaminitis almost resolved. plan- has been on IV zosyn for past 3 days. advise to d/c on home IV zosyn 3.375 gram IV q8 hours for another 5 days along with oral flagyl 500 mg q8 hours. advised to avoid fatty food. advised to have repeat cbc as outpatient. advised to f/u with her PMD and the surgeon next week. advised pt. if she develops any nausea or vomiting or abd pain to return to ED. Patient verbalizes full understanding of all above and agrees with above plan of care.
[2017-05-22] MEDS ORDERED: Lidocaine 1% Inj (20ml) ONE (11:47)
--- NOTE | 2017-05-22 12:17 | PCM.SURG1 ---
Surgeon's Initial Post Op Note - Surgeon's Notes Surgeon: Satish Christiansen MD Curing Supervisor: NONE Type of Anesthesia: Local Pre-Operative Diagnosis: Poor venous access Operative Findings: Patent right basilic vein Post-Operative Diagnosis: Poor venous access Operation Performed: Single lumen picc placement right basilic vein, 35 cm. Tip in SVC. Specimen/Specimens Removed: None Estimated Blood Loss: EBL {In ML}: 2 Blood Products Given: N/A Drains Used: No Drains Post-Op Condition: Fair Date of Surgery/Procedure: 05/22/17 Time of Surgery/Procedure: 12:15
--- NOTE | 2017-05-22 12:25 | CP.PCM.PN ---
Subjective - Date & Time of Evaluation Date of Evaluation: 05/22/17 Time of Evaluation: 12:25 - Subjective Subjective: FEELS BETTER NO ACUTE RESPIRATORY DISTRESS Objective - Vital Signs/Intake and Output Vital Signs (last 24 hours): Temp Pulse Resp BP Pulse Ox 97.5 F L 105 H 18 139/67 96 05/22/17 08:23 05/22/17 10:56 05/22/17 08:23 05/22/17 10:56 05/22/17 08:23 - Medications Medications: Current Medications Acetylcysteine (Acetylcysteine 20%) 2 ml INH RBID [facility] Last Admin: 05/22/17 07:44 Dose: 2 ml Albuterol Sulfate (Albuterol 0.083% Inhal Ro (2.5 Mg/3 Ml) Ud) 2.5 mg IH Q4H PRN PRN Reason: Shortness of Breath Albuterol/Ipratropium (Duoneb 3 Mg/0.5 Mg (3 Ml) Ud) 3 ml IH RQ4 [facility] Last Admin: 05/22/17 11:25 Dose: Not Given Cyproheptadine HCl (Periactin) 4 mg PO BID [facility] Last Admin: 05/22/17 09:21 Dose: 4 mg Doxazosin Mesylate (Cardura) 8 mg PO DAILY [facility] Last Admin: 05/22/17 09:19 Dose: 8 mg Enoxaparin Sodium (Lovenox) 30 mg SC DAILY [facility] PRN Reason: Protocol Last Admin: 05/22/17 09:21 Dose: 30 mg Furosemide (Lasix) 20 mg PO DAILY [facility] Last Admin: 05/22/17 09:20 Dose: 20 mg Glipizide (Glucotrol Xl) 5 mg PO DAILY [facility] Last Admin: 05/22/17 09:24 Dose: 5 mg Piperacillin Sod/Tazobactam (Sod 3.375 gm/ Sodium Chloride) 100 mls @ 100 mls/ hr IVPB Q6 [facility] Last Admin: 05/22/17 09:23 Dose: 100 mls/hr Methylprednisolone 40 mg/ (Sodium Chloride) 50 mls @ 100 mls/hr IVPB Q12 [facility] Last Admin: 05/22/17 09:23 Dose: 100 mls/hr Insulin Detemir (Levemir) 20 units SC HS [facility] Last Admin: 05/21/17 21:17 Dose: 20 units Insulin Human Lispro (Humalog) 0 units SC ACHS [facility] PRN Reason: Protocol Last Admin: 05/22/17 09:24 Dose: 3 unit Losartan Potassium (Cozaar) 100 mg PO DAILY [facility] Last Admin: 05/22/17 10:56 Dose: 100 mg Montelukast Sodium (Singulair) 10 mg PO [facility] Last Admin: 05/21/17 21:15 Dose: 10 mg Temazepam (Restoril) 30 mg PO [facility] Last Admin: 05/21/17 21:44 Dose: 30 mg Trazodone HCl (Desyrel) 150 mg PO HS [facility] Last Admin: 05/21/17 21:15 Dose: 150 mg Verapamil HCl (Calan Sr Tab) 240 mg PO DAILY [facility] Last Admin: 05/22/17 09:19 Dose: 240 mg - Labs Labs: 05/22/17 05:30 05/22/17 05:30 PT 11.0 Seconds (9.8-13.1) 05/19/17 15:39 INR 1.0 (0.9-1.2) 05/19/17 15:39 APTT 32.5 Seconds (25.6-37.1) 05/19/17 15:39 - Constitutional Appears: No Acute Distress - Head Exam Head Exam: ATRAUMATIC, NORMAL INSPECTION, NORMOCEPHALIC - Eye Exam Eye Exam: EOMI, Normal appearance, PERRL Pupil Exam: NORMAL ACCOMODATION, PERRL - ENT Exam ENT Exam: Mucous Membranes Moist, Normal Exam - Neck Exam Neck Exam: Full ROM, Normal Inspection. absent: Lymphadenopathy - Respiratory Exam Respiratory Exam: Clear to Ausculation Bilateral, Prolonged Expiratory Phase, NORMAL BREATHING PATTERN - Cardiovascular Exam Cardiovascular Exam: REGULAR RHYTHM, +S1, +S2. absent: Murmur - GI/Abdominal Exam GI & Abdominal Exam: Soft, Normal Bowel Sounds. absent: Tenderness - Rectal Exam Rectal Exam: NORMAL INSPECTION - Extremities Exam Extremities Exam: Full ROM, Normal Capillary Refill, Normal Inspection. absent : Joint Swelling, Pedal Edema - Back Exam Back Exam: NORMAL INSPECTION - Neurological Exam Neurological Exam: Alert, Awake, CN II-XII Intact, Normal Gait, Oriented x3 - Psychiatric Exam Psychiatric exam: Normal Affect, Normal Mood - Skin Skin Exam: Dry, Intact, Normal Color, Warm Assessment and Plan - Assessment and Plan (Free Text) Assessment: CHOLECYSTITIS COPD-STABLE Plan: TAPER STEROIDS NO FURTHER PULMONARY INTERVENTION FOR NOW WILL SIGN OFF CASE AND SEE AGAIN AT YOUR REQUEST
[2017-05-22 15:53] VITALS: BP 136/67; PULSE 92; TEMP 98; O2SAT 99
--- NOTE | 2017-05-22 18:24 | CP.PCM.DIS ---
Provider - Provider Date of Admission: 05/19/17 17:47 Attending physician: Danish Ko MD Primary care physician: Dr. Segundo Consults: Surgery eval Infectious disease Pulmonary cardiology Time Spent in preparation of Discharge (in minutes): 25 Hospital Course - Lab Results Lab Results: Micro Results 05/20/17 Unknown Sputum Gram Stain - Final 05/20/17 Unknown Sputum Sputum Culture - Preliminary Gram Negative Zack 05/20/17 16:30 Blood-Venous Blood Culture - Preliminary NO GROWTH AFTER 48 HOURS 05/19/17 20:06 Urine Urine Culture - Final Escherichia Coli Most Recent Lab Values WBC 12.8 K/uL (4.8-10.8) H 05/22/17 05:30 RBC 3.31 Mil/uL (3.80-5.20) L 05/22/17 05:30 Hgb 9.3 g/dL (12.0-16.0) L 05/22/17 05:30 Hct 29.2 % (34.0-47.0) L 05/22/17 05:30 MCV 88.2 fl (81.0-99.0) 05/22/17 05:30 MCH 28.0 pg (27.0-31.0) 05/22/17 05:30 MCHC 31.8 g/dL (33.0-37.0) L 05/22/17 05:30 RDW 14.8 % (11.5-14.5) H 05/22/17 05:30 Plt Count 381 K/uL (130-400) 05/22/17 05:30 MPV 7.8 fl (7.2-11.7) 05/21/17 05:00 Neut % (Auto) 94.3 % (50.0-75.0) H 05/21/17 05:00 Lymph % (Auto) 4.4 % (20.0-40.0) L 05/21/17 05:00 [place] % (Auto) 1.2 % (0.0-10.0) 05/21/17 05:00 Eos % (Auto) 0.0 % (0.0-4.0) 05/21/17 05:00 Baso % (Auto) 0.1 % (0.0-2.0) 05/21/17 05:00 Neut # 13.4 K/uL (1.8-7.0) H 05/21/17 05:00 Lymph # 0.6 K/uL (1.0-4.3) L 05/21/17 05:00 [place] # 0.2 K/uL (0.0-0.8) 05/21/17 05:00 Eos # 0.0 K/uL (0.0-0.7) 05/21/17 05:00 Baso # 0.0 K/uL (0.0-0.2) 05/21/17 05:00 Neutrophils % (Manual) 89 % (42-75) H 05/21/17 05:00 Band Neutrophils % 1 % (0-2) 05/21/17 05:00 Lymphocytes % (Manual) 9 % (20-50) L 05/21/17 05:00 Monocytes % (Manual) 1 % (0-10) 05/21/17 05:00 Platelet Estimate Normal (NORMAL) 05/21/17 05:00 Hypochromasia (manual) Slight 05/21/17 05:00 Anisocytosis (manual) Slight 05/21/17 05:00 PT 11.0 Seconds (9.8-13.1) 05/19/17 15:39 INR 1.0 (0.9-1.2) 05/19/17 15:39 APTT 32.5 Seconds (25.6-37.1) 05/19/17 15:39 pCO2 43 mm/Hg (35-45) 05/19/17 15:48 pO2 50 mm/Hg (30-55) 05/19/17 19:22 HCO3 30.2 mmol/L (21-28) H 05/19/17 15:48 ABG pH 7.47 (7.35-7.45) H 05/19/17 15:48 ABG Total CO2 32.6 mmol/L (22-28) H 05/19/17 15:48 ABG O2 Saturation 99.0 % (95-98) H 05/19/17 15:48 ABG Base Excess 6.8 mmol/L (-2.0-3.0) H 05/19/17 15:48 Roger Test Yes 05/19/17 15:48 ABG Potassium 4.4 mmol/L (3.6-5.2) 05/19/17 15:48 VBG pH 7.42 (7.32-7.43) 05/19/17 19:22 VBG pCO2 48 mmHg (40-60) 05/19/17 19:22 VBG HCO3 28.9 mmol/L 05/19/17 19:22 VBG Total CO2 32.6 mmol/L (22-28) H 05/19/17 19:22 VBG O2 Sat (Calc) 90.7 % (40-65) H 05/19/17 19:22 VBG Base Excess 5.5 mmol/L (0.0-2.0) H 05/19/17 19:22 VBG Potassium 4.6 mmol/L (3.6-5.2) 05/19/17 19:22 A-a O2 Difference 94.0 mm/Hg 05/19/17 15:48 Sodium 135.0 mmol/L (132-148) 05/19/17 19:22 Chloride 102.0 mmol/L (98-107) 05/19/17 19:22 Glucose 262 mg/dL (65-105) H 05/19/17 19:22 Lactate 1.0 mmol/L (0.7-2.1) 05/19/17 19:22 Vent Mode N/c 05/19/17 15:48 FiO2 21.0 % 05/19/17 19:22 Sodium 142 mmol/l (132-148) 05/22/17 05:30 Potassium 3.5 MMOL/L (3.6-5.0) L 05/22/17 05:30 Chloride 104 mmol/L (98-107) 05/22/17 05:30 Carbon Dioxide 29 mmol/L (22-30) 05/22/17 05:30 Anion Gap 13 (10-20) 05/22/17 05:30 BUN 25 mg/dl (7-17) H 05/22/17 05:30 Creatinine 0.9 mg/dL (0.7-1.2) 05/22/17 05:30 Est GFR ( Amer) > 60 05/22/17 05:30 Est GFR (Non-Af Amer) 60 05/22/17 05:30 POC Glucose (mg/dL) 313 mg/dL (65-110) H 05/22/17 10:51 Random Glucose 207 mg/dL (65-105) H 05/22/17 05:30 Hemoglobin A1c 11.4 % (4.2-6.5) H D 05/20/17 05:15 Calcium 8.1 mg/dL (8.4-10.2) L 05/22/17 05:30 Phosphorus 3.2 mg/dl (2.5-4.5) 05/19/17 15:55 Magnesium 1.8 MG/DL (1.6-2.3) 05/19/17 15:55 Total Bilirubin 0.2 mg/dl (0.2-1.3) 05/22/17 05:30 Direct Bilirubin 0.4 mg/ml (0.0-0.4) 05/20/17 05:15 AST 23 U/L (14-36) 05/22/17 05:30 ALT 191 U/L (9-52) H D 05/22/17 05:30 Alkaline Phosphatase 94 U/L (38-126) 05/22/17 05:30 Troponin I < 0.0120 ng/mL (0.00-0.120) 05/19/17 15:55 NT-Pro-B Natriuret Pep 500 pg/ml (0-900) 05/19/17 20:15 Total Protein 5.8 G/DL (6.3-8.2) L 05/22/17 05:30 Albumin 3.0 g/dL (3.5-5.0) L 05/22/17 05:30 Globulin 2.8 gm/dL (2.2-3.9) 05/22/17 05:30 Albumin/Globulin Ratio 1.1 (1.0-2.1) 05/22/17 05:30 Thyroxine (T4) 7.58 ug/dl (5.5-11.0) 05/20/17 05:15 Total T3 0.550 nmol/L (1.49-2.60) L 05/20/17 05:15 TSH 3rd Generation 0.40 mIU/ML (0.46-4.68) L 05/20/17 05:15 Arterial Blood Potassium 4.4 mmol/L (3.6-5.2) 05/19/17 15:48 Venous Blood Potassium 4.6 mmol/L (3.6-5.2) 05/19/17 19:22 Urine Color Yellow (YELLOW) 05/19/17 20:06 Urine Clarity Slighty-cloudy (Clear) 05/19/17 20:06 Urine pH 5.0 (5.0-8.0) 05/19/17 20:06 Ur Specific [place] 1.017 (1.003-1.030) 05/19/17 20:06 Urine Protein Negative mg/dL (NEGATIVE) 05/19/17 20:06 Urine Glucose (UA) 50 mg/dL (Normal) 05/19/17 20:06 Urine Ketones Trace mg/dL (NEGATIVE) 05/19/17 20:06 Urine Blood Negative (NEGATIVE) 05/19/17 20:06 Urine Nitrate Negative (NEGATIVE) 05/19/17 20:06 Urine Bilirubin Negative (NEGATIVE) 05/19/17 20:06 Urine Urobilinogen 0.2-1.0 mg/dL (0.2-1.0) 05/19/17 20:06 Ur Leukocyte Esterase Large Aki/uL (Negative) 05/19/17 20:06 Urine Microscopic WBC 68 /hpf (0-5) H 05/19/17 20:06 Ur Squamous Epith Cells 1 /hpf (0-5) 05/19/17 20:06 Urine Bacteria Rare (<OCC) 05/19/17 20:06 Hyaline Casts 0-2 /hpf (0-2) 05/19/17 20:06 Hepatitis A IgM Ab Negative (NEGATIVE) 05/19/17 20:15 Hep Bs Antigen Negative (NEGATIVE) 05/19/17 20:15 Hep B Core IgM Ab Negative (NEGATIVE) 05/19/17 20:15 Hepatitis C Antibody Negative (NEGATIVE) 05/19/17 20:15 - Hospital Course Hospital Course: 82 yo female with history of COPD, HTN, DM2 and CHF came in complaining of loss of appetite, upper abdominal pain and generalized weakness since 5 days ago. Denied chest pain, SOB, fever or chills. Also denied nausea, vomiting or diarrhea. She was found to have elevated WBC count . CT abdomen showed distended gallbladder with small stones and pericholecystic fluid suggest cholecystitis ; ileus versus early small bowel obstruction She was admitted and started on IVF and zosyn. Surgery, ID, pulmonary and cardiology were consulted . HIDA scan showed acute cholecystitis. Family and patient opted to conservative treatment and against surgery. Clinically she showed improvement, abdominal pain resolved , tolerating PO intake, afebrile and her WBC trended down from 17 k -- 12 K Her urine also was reported as e.Coli positive sensitive to tazo bactam. Her CXR showed LLL infiltrate and sputum cx reported as gram negative zack. Patient insisting to go home , refusing to stay any longer in hospital stating that she would like to continue antibiotics home Arrangements made with case management for IV zosyn for 5 more days at home and Po flagyl for 7 days. advised patient and family to follow up with PMD Dr. Segundo. Follow up with surgeon return to hospital if abdominal pain returns,develops fever , chills, nausea or vomiting 1. Abdominal pain Most likely secondary to cholelithiasis with acute cholecystitis and ileus with partial SBO Pain resolved , tolerating diet surgery and ID consulted Started on Zosyn IV and received for 3 days while in hospital HIDA scan positive for acute cholecystitis Ct abdomen showed ileus and partial SBO Family and patient opted to conservative treatment for acute cholecystitis , no surgery advanced diet and tolerating Gieven lactulose for ileus and partial SBO patient refusing to stay [facility] for continuation of her IV antibiotics stating that she feels well, with no pain and would like to go home arrangements made for IV antibiotics home (PICC line placed ) with Zosyn IV for 5 more days and Flagyl PO for 7 days Advised to follow up with PMD and surgeon once discharged 2.Mild COPD exacerbation patient is on home O2 With some dyspnea especially with ambulation pulmonary consult with Dr. Greene appreciated Duoneb q 4hrs prn given for SOB/wheezing Solumedriol 40 mg Q12 was given At discharge back t=to her baseline Continue O2 via [place] and home meds 3. LLL pneumonia - most likely CAP - POA CXR showed LLL infiltrate sputum cx positive for gram negative zack continue Zosyn and Flagyl pulmonary consulted 4. DM2 BS uncontrolled Hgb A1c 11 accuchek ACHS with low Lispro coverage Most likely BS also very uncontrolled due to steroids d/c solumedrol Wsa started on Levemir 15 units Sq resume home meds upon discharge diabetic diet 5. HTN BP controlled continue Cardura , losartan and Verapamil 6. CHF, compensated systolic dysfunction stable cardiology consulted 7.Anemia Most likely anemia of chronic disease Monitor for now 8. Sick euthyroid TSH and T3 low Will need repeat levels once acute illness is treated 9. DVT Prophylaxis Lovenox 30mg SC daily 10, Transaminitis Most likely related to Cholelithiasis and cholecystitis continue to monitor 11. UTI urine cx positive for E. Coli on Zosyn IV Discharge Exam - Head Exam Head Exam: ATRAUMATIC, NORMOCEPHALIC - Eye Exam Eye Exam: EOMI, PERRL Pupil Exam: NORMAL ACCOMODATION - ENT Exam ENT Exam: Mucous Membranes Moist, Normal Exam - Neck Exam Neck exam: Full Rom, Normal Inspection - Respiratory Exam Respiratory Exam: Prolonged Expiratory Phase. absent: Rhonchi, Wheezes - Cardiovascular Exam Cardiovascular Exam: REGULAR RHYTHM, RRR, +S1, +S2. absent: JVD - GI/Abdominal Exam GI & Abdominal Exam: Normal Bowel Sounds, Soft. absent: Distended, Guarding, Rebound, Tenderness - Rectal Exam Rectal Exam: Deferred - Extremities Exam Extremities exam: normal capillary refill, normal inspection, pedal pulses present - Back Exam Back exam: NORMAL INSPECTION - Neurological Exam Neurological exam: Alert, CN II-XII Intact, Oriented x3, Reflexes Normal - Psychiatric Exam Psychiatric exam: Normal Affect - Skin Skin Exam: Dry, Pallor, Warm Additional comments: stage I sacral decubitus ulcer Discharge Plan - Discharge Medications Prescriptions: Piperacill/Tazo 3.375gm in Dex [Zosyn 3.375 Gm IV Premix] 3.375 gm IV Q8 #21 bag - Follow Up Plan Condition: IMPROVED Disposition: HOME/ ROUTINE Patient education suggested?: Yes Instructions: Viral Pneumonia (DC), Urinary Tract Infection in Women (DC), Peripherally Inserted Central Catheters and Midline Catheters (DC), COPD ( Chronic Obstructive Pulmonary Disease) (DC) Referrals: Tiffany Segundo MD [Staff Provider] - Patric Contreras MD [Staff Provider] - Dominik Oscar MD [Staff Provider] -
--- NOTE | 2017-05-25 11:01 | VASCULAR ---
PROCEDURE: Date of procedure: 05/22/2017 Procedure: 1. Placement of a right arm PICC with ultrasound and fluoroscopic guidance, CPT 99426 2. PICC tip confirmation with spot radiograph and is in the superior vena cava Medications: 4cc 1 percent lidocaine Total Fluoro time: 4 seconds Radiation: 1.2 mGy EBL: 2 cc HISTORY: Infection requiring long-term IV antibiotics TECHNIQUE: Following informed consent and procedure time-out, the patient was placed supine on the interventional table and the right arm prepped and draped in the usual sterile fashion. Ultrasound showed a patent and compressible right basilic vein. After the skin was anesthetized with lidocaine, the basilic vein was accessed with micro micropuncture technique using ultrasound guidance. A guidewire was then advanced under fluoroscopic guidance into the superior vena cava. An image documenting ultrasound guidance for vascular access was permanently saved. The length of the single-lumen 4 [place] PICC was trimmed to 35 centimeters and advanced through a peel-away sheath. The PICC was position with tip of PICC confirm a spot radiograph the superior vena cava. The PICC was secured to the patient's skin. The PICC was flushed. A biopatch and sterile dressing was applied. IMPRESSION: Placement of a single-lumen 4 [place] PICC trimmed to 37 centimeters via right basilic vein. The tip of the PICC is confirmed with spot radiograph and is in the superior vena cava.
== END 2017-05-22 17:08 | disposition home health service (06) | DRG 444 ==
LOC: H.ER 14:51 → H.ERHOLD 17:47 → H.TEL 22:33
PROC: 3E0F73Z Introduction of Anti-inflammatory into Respiratory Tract, Via Natural or Artificial Opening (ICD-10-PCS; principal; 2017-05-19)
PROC: 02HV33Z Insertion of Infusion Device into Superior Vena Cava, Percutaneous Approach (ICD-10-PCS; 2017-05-22)
PROC: B548ZZA Ultrasonography of Superior Vena Cava, Guidance (ICD-10-PCS; 2017-05-22)
PROC: 3E04329 Introduction of Other Anti-infective into Central Vein, Percutaneous Approach (ICD-10-PCS; 2017-05-22)
DX: K80.00 Calculus of gallbladder with acute cholecystitis without obstruction (principal); J18.9 Pneumonia, unspecified organism; K56.3 Gallstone ileus; K56.69 Other intestinal obstruction; J44.0 Chronic obstructive pulmonary disease with (acute) lower respiratory infection; I50.20 Unspecified systolic (congestive) heart failure; N39.0 Urinary tract infection, site not specified; J44.1 Chronic obstructive pulmonary disease with (acute) exacerbation; I11.0 Hypertensive heart disease with heart failure; L89.151 Pressure ulcer of sacral region, stage 1; E11.9 Type 2 diabetes mellitus without complications; B96.20 Unspecified Escherichia coli [E. coli] as the cause of diseases classified elsewhere; D63.8 Anemia in other chronic diseases classified elsewhere; E03.9 Hypothyroidism, unspecified; E07.81 Sick-euthyroid syndrome; M06.9 Rheumatoid arthritis, unspecified; I25.10 Atherosclerotic heart disease of native coronary artery without angina pectoris; J45.909 Unspecified asthma, uncomplicated; D72.828 Other elevated white blood cell count; K59.09 Other constipation; T17.990A Other foreign object in respiratory tract, part unspecified in causing asphyxiation, initial encounter; Z99.81 Dependence on supplemental oxygen; K29.70 Gastritis, unspecified, without bleeding; F41.9 Anxiety disorder, unspecified; F32.9 Major depressive disorder, single episode, unspecified; Z87.891 Personal history of nicotine dependence; Z85.42 Personal history of malignant neoplasm of other parts of uterus; Z95.5 Presence of coronary angioplasty implant and graft; Z87.440 Personal history of urinary (tract) infections; Z87.01 Personal history of pneumonia (recurrent); Y92.9 Unspecified place or not applicable

== ENCOUNTER 2017-10-12 11:00 | Inpatient (IN) | payer MEDICARE ==
[2017-10-12 11:00] VITALS: BMI 22.8
--- NOTE | 2017-10-12 11:35 | ED PDOC ---
HPI: General Adult Time Seen by Provider: 10/12/17 11:12 Chief Complaint (Nursing): Weakness/Neurological Deficit Chief Complaint (Provider): weakness, hip pain History Per: Patient, Family () History/Exam Limitations: other (mental status) Onset/Duration Of Symptoms: Days Have you had recent travel within the past 21 days to any of the following countries: [place], [place], [place] or [place]?: No Current Symptoms Are (Timing): Still Present Additional Complaint(s): 82 y/o F with Hx of COPD and IDDM presents with with complains of B/L hip pain, generalized weakness and somnolence. As per patient has been c /o B/L hip pain for 2-3 days. No recent falls reported but admits falling 1 month ago toward her left side. states she has been less talkative and refusing to eat and drink for the past 2 days. LBM 2 days ago, denies melena, hematochezia, vomiting, nausea. Patient has been taking her usual meds including sleep pills(Temazepam, Trazodone), for pain she has been taking PRN tylenol. Denies cough, CP, SOB. Patient oriented x2. As per she donsnt keep track of days but today she looks more lethargic. Patient c/o B/L hip and R /thigh pain. Past Medical History Vital Signs: Last Vital Signs Temp 98 F 10/12/17 11:19 Pulse 79 10/12/17 15:21 Resp 17 10/12/17 15:21 BP 100/50 L 10/12/17 15:21 Pulse Ox 97 10/12/17 15:37 - Medical History PMH: Anemia, Anxiety, Arthritis, Asthma, CAD, COPD, Depression, Diabetes, Emphysema, Gastritis, HTN, Hypothyroidism, Pneumonia, Rheumatoid Arthritis Denies: CHF, HIV, Hypercholesterolemia, Chronic Kidney Disease, Seizures - Surgical History Surgical History: Appendectomy - Family History Family History: States: Unknown Family Hx - Living Arrangements Living Arrangements: With Family - Home Medications Home Medications: Ambulatory Orders Medication Instructions Recorded Albuterol 0.083% [Albuterol 0.083% 3 ml IH Q4H PRN 05/19/17 Inhal Ro (2.5 mg/3 ml) UD] Albuterol/Ipratropium [Duoneb 3 3 ml IH Q6H PRN 05/19/17 mg/0.5 mg (3 ml) UD] Doxazosin [Cardura] 8 mg PO DAILY 05/19/17 Furosemide [Lasix] 20 mg PO DAILY 05/19/17 Glimepiride [amaRYL] 2 mg PO DAILY 05/19/17 Insulin Glargine, Recombina 10 unit SC HS 05/19/17 [Lantus] Insulin Human Regular [HumuLIN R] 2 - 6 unit SC TID 05/19/17 Irbesartan [Avapro] 150 mg PO DAILY 05/19/17 Montelukast [Singulair] 10 mg PO HS 05/19/17 Omeprazole [Omeprazole] 40 mg PO DAILY 05/19/17 Temazepam [Restoril] 30 mg PO HS 05/19/17 Trazodone HCl [Trazodone HCl] 150 mg PO HS 05/19/17 Verapamil HCl [Verapamil ER] 240 mg PO DAILY 05/19/17 Multivitamin/Iron/Folic Acid 1 tab PO DAILY 10/12/17 [Centrum Complete Multivit Tab] - Allergies Allergies/Adverse Reactions: Allergies Allergy/AdvReac Type Severity Reaction Status Date / Time No Known Allergies Allergy Verified 03/04/16 15:46 Review of Systems ROS Statement: Except As Marked, All Systems Reviewed And Found Negative Gastrointestinal: Positive for: Constipation Musculoskeletal: Positive for: Other (hip pain) Skin: Positive for: Other (Excoriation/trauma) Neurological: Positive for: Weakness, Altered Mental Status Physical Exam - Reviewed Vital Signs Reviewed: Yes - Physical Exam Appears: Positive for: Non-toxic, Uncomfortable Skin: Positive for: Dry Eye Exam: Positive for: EOMI, Other (pinpoint pupils). Negative for: Periorbital swelling, Conjunctival injection Cardiovascular/Chest: Positive for: Regular Rate, Rhythm. Negative for: Gallop Respiratory: Positive for: Rhonchi. Negative for: Crackles, Wheezing, Respiratory Distress Gastrointestinal/Abdominal: Positive for: Soft, Mass (lower abd, midline). Negative for: Tenderness, Guarding, Rebound Extremity: Negative for: Tenderness, Pedal Edema, Calf Tenderness, Swelling Neurologic/Psych: Positive for: Alert. Negative for: Oriented (partially), Motor/Sensory Deficits (no evident deficit) - Laboratory Results Result Diagrams: 10/12/17 12:20 10/12/17 14:30 - ECG O2 Sat by Pulse Oximetry: 97 - Progress ED Course And Treament: Patient received 1 L of IV fluids. CT of the head no acute changes. CT of the abd shows poss acute cholecystitis and CT of the hip shows poss avascular necrosis of the femoral head. WBC 11.6 and BUN/Creatinine elevated. Patient to be admitted for further workup and management. Sx and Ortho consulted Medical Decision Making Medical Decision Making: AMS/Weakness CVA vs med side effect vs infection vs metabolic IV fluids CBC, CMP, UA, Utox CXR, Head CT Abd Mass on PE F/U Abd CT Hip pain Fall 1 month ago R/O Fx F/U Hip/Spine CT Disposition - Clinical Impression Clinical Impression: JADE (acute kidney injury), Acute cholecystitis, Avascular necrosis of femoral head - Patient ED Disposition Is Patient to be Admitted: Yes Counseled Patient/Family Regarding: Diagnosis - Disposition Disposition Time: 16:00 Condition: FAIR
[2017-10-12] MEDS ORDERED: Sodium Chloride 0.9% 1,000 ML IV STA ×2 (11:46→13:07)
[2017-10-12 12:25] LABS: BASO # 0.1 K/uL (0.0-0.2); BASO % 0.8 % (0.0-2.0); EOS # 0.1 K/uL (0.0-0.7); EOS % 1.1 % (0.0-4.0); HEMATOCRIT 34.4 % (34.0-47.0); LYMPH # 0.5 K/uL (1.0-4.3); LYMPH % 4.6 % (20.0-40.0); MEAN CELL VOLUME 89.3 fl (81.0-99.0); MEAN CORPUSCULAR HGB CONC 31.3 g/dL (33.0-37.0); MEAN PLATELET VOLUME 8.5 fl (7.2-11.7); MONO # 0.3 K/uL (0.0-0.8); NEUT # 10.5 K/uL (1.8-7.0); NEUT % 90.5 % (50.0-75.0); RED CELL DISTRIBUTION WIDTH 17.5 % (11.5-14.5); WHITE BLOOD COUNT 11.6 K/uL (4.8-10.8)
[2017-10-12 12:36] LABS: ALB/GLOB RATIO 1.1 (1.0-2.1); BILIRUBIN,TOTAL 0.3 mg/dl (0.2-1.3); POTASSIUM 5.3 MMOL/L (3.6-5.0); TOTAL PROTEIN 5.9 G/DL (6.3-8.2)
[2017-10-12 12:38] LABS: PLATELET COUNT 122 K/uL (130-400)
[2017-10-12 12:46] LABS: TROPONIN I 0.02 ng/mL (0.00-0.120)
[2017-10-12 13:02] LABS: EOSINOPHIL 3 % (0-7); NEUTROPHIL 86 % (42-75); TOTAL CELLS COUNTED 100
[2017-10-12 13:04] LABS: LARGE PLATELETS PRESENT
--- NOTE | 2017-10-12 13:52 | CARD ---
APPROVED REPORT EKG Measurement Heart [id number] <Conclusion> Normal sinus rhythm Right bundle branch block Nonspecific T wave abnormality Abnormal ECG
--- NOTE | 2017-10-12 14:21 | CT ---
PROCEDURE: CT HEAD WITHOUT CONTRAST. HISTORY: Lethargy COMPARISON: 05/19/2017. TECHNIQUE: Axial computed tomography images were obtained through the head/brain without intravenous contrast. Radiation dose: Total exam DLP = 1772.97 mGy-cm. This CT exam was performed using one or more of the following dose reduction techniques: Automated exposure control, adjustment of the mA and/or kV according to patient size, and/or use of iterative reconstruction technique. FINDINGS: HEMORRHAGE: No intracranial hemorrhage. BRAIN: [place]-white matter differentiation is preserved. There are mild chronic microangiopathic changes. There is an old lacunar infarction in the right thalamus. No mass, mass effect or abnormal extra-axial fluid collection.There are coarse atherosclerotic calcifications in the cavernous carotid arteries. VENTRICLES: There is mild age-related global parenchymal volume loss and proportionate enlargement of the ventricles and cortical sulci. CALVARIUM: The skull base and calvarium are normal. PARANASAL SINUSES: There is chronic ethmoid sinusitis. The remaining included paranasal sinuses are clear. MASTOID AIR CELLS: Predominantly clear. OTHER FINDINGS: None. IMPRESSION: No acute intracranial abnormality. 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 Mild chronic microangiopathic changes and mild age-related global parenchymal volume loss.
--- NOTE | 2017-10-12 14:33 | CT ---
PROCEDURE: CT Abdomen and Pelvis without intravenous contrast HISTORY: Abdominal mass COMPARISON: 05/19/2017. TECHNIQUE: CT scan of the abdomen and pelvis was performed without administration of intravenous contrast. Oral contrast was not administered. Coronal and sagittal reformatted images were obtained. Radiation dose: Total exam DLP = 1020.66 mGy-cm. This CT exam was performed using one or more of the following dose reduction techniques: Automated exposure control, adjustment of the mA and/or kV according to patient size, and/or use of iterative reconstruction technique. FINDINGS: LOWER THORAX: There is subsegmental atelectasis in the lower lobes and small right pleural effusion. The heart remains enlarged and there are coronary artery calcifications. LIVER: Normal in size. There is a stable 2.4 cm simple cyst in the left hepatic lobe. No intrahepatic biliary ductal dilatation. GALLBLADDER AND BILE DUCTS: The gallbladder is distended and there are small gallstones. There is redemonstration of diffuse gallbladder wall thickening and irregularity with question of small pericholecystic fluid in the region of the fundus. PANCREAS: Mild diffuse atrophy. No gross lesion or ductal dilatation. SPLEEN: Normal in size. ADRENALS: Thickening of the left adrenal gland. The right adrenal gland is normal. No discrete nodule. KIDNEYS AND URETERS: There is mild renal cortical atrophy. No hydronephrosis or nephrolithiasis. Stable simple cysts in both kidneys. VASCULATURE: No aortic aneurysm. There are advanced atherosclerotic aortoiliac calcifications. BOWEL: The small bowel loops are normal in caliber. There is left colonic diverticulosis without CT evidence for acute diverticulitis. There is large amount of stool in the colon. No bowel dilatation or obstruction. APPENDIX: Normal appendix. PERITONEUM: No free fluid. No free air. LYMPH NODES: No enlarged lymph nodes. BLADDER: Unremarkable. REPRODUCTIVE: The uterus is surgically absent. BONES: Diffuse bone demineralization and multilevel degenerative changes. Chronic superior endplate compression deformity in the L2 vertebral body and age indeterminate compression deformity in the L1 vertebral body, new since the prior examination. OTHER FINDINGS: There is redemonstration of fat containing left paramedian ventral hernia. There is a small sliding hiatal hernia. IMPRESSION: 1. Redemonstration of distended gallbladder, small gallstones, diffuse gall bladder wall thickening and irregularity and questionable small pericholecystic in the region of the fundus. Findings may represent acute calculus cholecystitis in the appropriate clinical setting. Clinical correlation and follow-up is advised. 2. Left colonic diverticulosis without CT evidence for acute diverticulitis. 3. Stable chronic findings as described above.
--- NOTE | 2017-10-12 14:45 | CT ---
PROCEDURE: CT scan of the left hip without contrast. HISTORY: Hip pain COMPARISON: None available. TECHNIQUE: Contiguous axial images of the right hip were obtained. Coronal and sagittal reformats were generated. This CT exam was performed using one or more of the following dose reduction techniques: Automated exposure control, adjustment of the mA and/or kV according to patient size, and/or use of iterative reconstruction technique. FINDINGS: BONES: There is no acute displaced fracture or bone destruction. Bone alignment is normal. There is diffuse bone demineralization. RIGHT HIP JOINT: There is mild flattening of the anterior femoral head and subarticular lucency with sclerosis. There is also moderate degenerative osteoarthrosis with reduced joint space and marginal spurring in the os acetabulum. SOFT TISSUES: The periarticular soft tissues are normal. IMPRESSION: 1. 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 Also noted is moderate degenerative osteoarthrosis. MRI of the hip would be helpful for definitive evaluation. 2. No acute displaced fracture or dislocation.
[2017-10-12 14:52] LABS: RBC URINE 2 /hpf (0-3); URINE BILIRUBIN NEGATIVE (NEGATIVE); URINE BLOOD SMALL (NEGATIVE); URINE COLOR AMBER (YELLOW); URINE GLUCOSE (UA) NEG (Normal); URINE KETONE NEGATIVE (NEGATIVE); URINE LEUKOCYTE ESTERASE MOD Leu/uL (Negative); URINE PROTEIN 30 mg/dL (NEGATIVE); URINE UROBILINOGEN 0.2-1.0 mg/dL (0.2-1.0); WBC URINE 26 /hpf (0-5)
--- NOTE | 2017-10-12 14:55 | CT ---
PROCEDURE: CT of the Right Hip. HISTORY: Hip pain COMPARISON: None available. TECHNIQUE: Contiguous axial images of the right hip were obtained. Coronal and sagittal reformats were generated. This CT exam was performed using one or more of the following dose reduction techniques: Automated exposure control, adjustment of the mA and/or kV according to patient size, and/or use of iterative reconstruction technique. FINDINGS: BONES: There is no acute displaced fracture or bone destruction. Bone alignment is normal. There is diffuse bone demineralization. RIGHT HIP JOINT: There is moderate degenerative osteoarthrosis with reduced superolateral joint space and marginal osteophytes. SOFT TISSUES: Unremarkable. IMPRESSION: No acute displaced fracture or dislocation. Moderate degenerative osteoarthrosis in the hip joint.
--- NOTE | 2017-10-12 14:59 | RAD ---
HISTORY: Lethargy. Portable supine study 11:54. COMPARISON: 05/19/2017 FINDINGS: LUNGS: No active pulmonary disease. PLEURA: No significant pleural effusion identified, no pneumothorax apparent. CARDIOVASCULAR: Cardiomegaly. No evidence of acute, significant cardiovascular disease. OSSEOUS STRUCTURES: No significant abnormalities. VISUALIZED UPPER ABDOMEN: Normal. OTHER FINDINGS: None. IMPRESSION: No active disease. No significant interval change compared to the prior examination(s).
[2017-10-12] MEDS ORDERED: Sodium Chloride 0.9% 1,000 ML IV SCH ×2 (15:45→16:00)
[2017-10-12] MEDS ORDERED: Albuterol-Ipratrop 3 mg / 0.5 (3 ml) UD IH PRN (15:55)
[2017-10-12] MEDS ORDERED: Albuterol-Ipratrop 3 mg / 0.5 (3 ml) UD ONE (16:18)
--- NOTE | 2017-10-12 16:24 | CP.PCM.CON ---
History of Present Illness - History of Present Illness History of Present Illness: General surgery consult for Dr. Mychal Barnes, PGY-1 82F w/PMH sig for previous episode of cholecystitis, consulted for findings suspicious of cholecystitis on CT abdomen. Pt currently with AMS, history as per family at bedside. Pt c/o of L hip pain on evening prior to admission, then R hip pain. Pt had decreased appetite on evening previous to admission. This AM pt was found to be altered with flaccity of body- brought to ED for evaluation. Pt was admitted in May with similar finding positive for acute cholecystitis on HIDA, at that time pt and family declined surgical intervention and opted for conservative mgmt and improved clinically. ROS unobtainable due to AMS. In ED- CT ab w/re-demonstration of distended gallbladder, small gallstones, diffuse gall bladder wall thickening and irregularity and questionable small pericholecystic in the region of the fundus. Findings may represent acute calculus cholecystitis in the appropriate clinical setting. Slight leukocytosis of 11.6, no fevers. LFTs WNL except ALP- 187. PMH: HTN, DM, COPD, chronic constipation PSH: appendectomy, hysterectomy All: Denies SH: Lives with family, denies current ETOH use, hx of retirement tobacco use, quit in 2006, denies illicit drug use PMD: Tiffany Segundo Review of Systems - Review of Systems Systems not reviewed;Unavailable: Altered Mental Status Past Patient History - Infectious Disease Hx of Infectious Diseases: None - Tetanus Immunizations Tetanus Immunization: Unknown - Past Medical History & Family History Past Medical History?: Yes - Past Social History Smoking Status: Never Smoked - CARDIAC Hx Congestive Heart Failure: No Hx Hypercholesterolemia: No Hx Hypertension: Yes - PULMONARY Hx Asthma: Yes Hx Chronic Obstructive Pulmonary Disease (COPD): Yes Hx Emphysema: Yes Hx Pneumonia: Yes - NEUROLOGICAL Hx Seizures: No - HEENT Hx HEENT Problems: No - RENAL Hx Chronic Kidney Disease: No - ENDOCRINE/METABOLIC Hx Hypothyroidism: Yes - HEMATOLOGICAL/ONCOLOGICAL Hx Anemia: Yes Hx Human Immunodeficiency Virus (HIV): No - INTEGUMENTARY Hx Dermatological Problems: Yes Other/Comment: Sacral redness. right buttock wound. left buttock redness - MUSCULOSKELETAL/RHEUMATOLOGICAL Hx Arthritis: Yes Hx Rheumatoid Arthritis: Yes - GASTROINTESTINAL Hx Gastritis: Yes - GENITOURINARY/GYNECOLOGICAL Hx Uterine Cancer: Yes Hx Urinary Tract Infection: Yes - PSYCHIATRIC Hx Anxiety: Yes Hx Depression: Yes - SURGICAL HISTORY Hx Appendectomy: Yes - ANESTHESIA Hx Anesthesia: Yes Hx Anesthesia Reactions: No Hx Malignant Hyperthermia: No Meds Allergies/Adverse Reactions: Allergies Allergy/AdvReac Type Severity Reaction Status Date / Time No Known Allergies Allergy Verified 03/04/16 15:46 - Medications Medications: Current Medications Albuterol Sulfate (Albuterol 0.083% Inhal Ro (2.5 Mg/3 Ml) Ud) 2.5 mg IH RQ4 PRN PRN Reason: Shortness of Breath Albuterol/Ipratropium (Duoneb 3 Mg/0.5 Mg (3 Ml) Ud) 3 ml IH RQ6 PRN PRN Reason: Shortness of Breath Doxazosin Mesylate (Cardura) 8 mg PO DAILY [facility] Fluconazole (Diflucan) 200 mg PO DAILY [facility] PRN Reason: Protocol Furosemide (Lasix) 20 mg PO DAILY [facility] Home Med (Glimepiride [Amaryl]) 2 mg PO DAILY [facility] Sodium Chloride (Sodium Chloride 0.9%) 1,000 mls @ 500 mls/hr IV .Q2H [facility] Stop: 10/12/17 17:44 Sodium Chloride (Sodium Chloride 0.9%) 1,000 mls @ 125 mls/hr IV .Q8H [facility] Stop: 10/13/17 16:01 Piperacillin Sod/Tazobactam (Sod 2.25 gm/ Sodium Chloride) 100 mls @ 100 mls/ hr IVPB Q6 [facility] PRN Reason: Protocol Insulin Detemir (Levemir) 10 units SC HS [facility] Insulin Human Regular (Humulin R) 0 units SC ACCU-CHECK [facility] PRN Reason: Protocol Montelukast Sodium (Singulair) 10 mg PO HS [facility] Multivitamins/Minerals (Therapeutic-M Tab) 1 tab PO DAILY [facility] Pantoprazole Sodium (Protonix Ec Tab) 40 mg PO DAILY [facility] Temazepam (Restoril) 30 mg PO HS [facility] Trazodone HCl (Desyrel) 150 mg PO HS [facility] Verapamil HCl (Calan Sr Tab) 240 mg PO DAILY [facility] Physical Exam - Constitutional Appears: Other (Arousable to tactile stimuli, lethargic) - Head Exam Head Exam: ATRAUMATIC, NORMAL INSPECTION, NORMOCEPHALIC - Eye Exam Eye Exam: EOMI, Normal appearance - ENT Exam ENT Exam: Mucous Membranes Dry - Neck Exam Neck exam: Positive for: Normal Inspection - Respiratory Exam Respiratory Exam: Rhonchi, Wheezes, NORMAL BREATHING PATTERN. absent: Clear to Auscultation Bilateral - Cardiovascular Exam Cardiovascular Exam: REGULAR RHYTHM, +S1, +S2 - GI/Abdominal Exam GI & Abdominal Exam: Soft, Tenderness (Lower quadrants laterally). absent: Distended, Firm, Guarding, Rebound, Rigid - Extremities Exam Extremities exam: Positive for: normal inspection. Negative for: pedal edema - Neurological Exam Neurological exam: Alert, CN II-XII Intact, Oriented x3 - Psychiatric Exam Psychiatric exam: Normal Affect, Normal Mood - Skin Skin Exam: Dry, Intact, Normal Color, Warm Results - Vital Signs Recent Vital Signs: Last Vital Signs Temp 98 F 10/12/17 11:19 Pulse 79 10/12/17 15:21 Resp 17 10/12/17 15:21 BP 100/50 L 10/12/17 15:21 Pulse Ox 97 10/12/17 15:37 - Labs Result Diagrams: 10/12/17 12:20 10/12/17 14:30 Labs: Laboratory Results - last 24 hr 10/12/17 10/12/17 10/12/17 12:08 12:20 12:20 WBC 11.6 H RBC 3.85 Hgb 10.8 L Hct 34.4 MCV 89.3 MCH 28.0 MCHC 31.3 L RDW 17.5 H Plt Count 122 L D MPV 8.5 Neut % (Auto) 90.5 H Lymph % (Auto) 4.6 L [place] % (Auto) 3.0 Eos % (Auto) 1.1 Baso % (Auto) 0.8 Neut # 10.5 H Lymph # 0.5 L [place] # 0.3 Eos # 0.1 Baso # 0.1 Neutrophils % (Manual) 86 H Lymphocytes % (Manual) 6 L Monocytes % (Manual) 5 Eosinophils % (Manual) 3 Platelet Estimate Decreased L Large Platelets Present Hypochromasia (manual) Slight Anisocytosis (manual) Slight [place] Cells Moderate PT INR APTT Sodium 138 Potassium 5.3 H Chloride 98 Carbon Dioxide 32 H Anion Gap 13 BUN 66 H Creatinine 2.2 H Est GFR ( Amer) 26 Est GFR (Non-Af Amer) 21 Random Glucose 98 Calcium 10.0 Total Bilirubin 0.3 AST 36 ALT 32 Alkaline Phosphatase 187 H Troponin I 0.0200 Total Protein 5.9 L Albumin 3.1 L Globulin 2.8 Albumin/Globulin Ratio 1.1 Urine Color Natalie Urine Clarity Cloudy Urine pH 5.0 Ur Specific [place] 1.018 Urine Protein 30 Urine Glucose (UA) Neg Urine Ketones Negative Urine Blood Small Urine Nitrate Negative Urine Bilirubin Negative Urine Urobilinogen 0.2-1.0 Ur Leukocyte Esterase Mod Urine RBC (Auto) 2 Urine Microscopic WBC 26 H Urine Yeast (Budding) Mod H Acetaminophen 10/12/17 10/12/17 10/12/17 12:20 12:20 14:30 WBC RBC Hgb Hct MCV MCH MCHC RDW Plt Count MPV Neut % (Auto) Lymph % (Auto) [place] % (Auto) Eos % (Auto) Baso % (Auto) Neut # Lymph # [place] # Eos # Baso # Neutrophils % (Manual) Lymphocytes % (Manual) Monocytes % (Manual) Eosinophils % (Manual) Platelet Estimate Large Platelets Hypochromasia (manual) Anisocytosis (manual) Nova Cells PT 11.4 INR 1.0 APTT 31.0 Sodium Potassium 5.0 Chloride Carbon Dioxide Anion Gap BUN Creatinine Est GFR ( Amer) Est GFR (Non-Af Amer) Random Glucose Calcium Total Bilirubin AST ALT Alkaline Phosphatase Troponin I Total Protein Albumin Globulin Albumin/Globulin Ratio Urine Color Urine Clarity Urine pH Ur Specific [place] Urine Protein Urine Glucose (UA) Urine Ketones Urine Blood Urine Nitrate Urine Bilirubin Urine Urobilinogen Ur Leukocyte Esterase Urine RBC (Auto) Urine Microscopic WBC Urine Yeast (Budding) Acetaminophen 11.0 Assessment & Plan - Assessment and Plan (Free Text) Assessment: 82F w/finding of cholecystitis on CT of abdomen Plan: IVF ABx Family reports pt is DNR/DNI DW family wishes regarding surgical work up and intervention, pt's family is declining further work up and surgical intervention at this time Will monitor Further mgmt as per primary team NORRIS attending Molly, PGY-1 - Date & Time Date: 10/12/17 Time: 16:22
[2017-10-12] MEDS: Albuterol 0.083% Inhal Sol (2.5 mg/3 mL) UD IH PRN (16:26)
[2017-10-12] MEDS ORDERED: Dextrose 50% SYRINGE Inj (50 ml) IVP STA (16:40)
[2017-10-12] MEDS: Insulin Regular 100 units/ml SC SCH ×2 (16:43→22:53)
--- NOTE | 2017-10-12 17:00 | CP.PCM.HP ---
History of Present Illness - History of Present Illness History of Present Illness: CC: Lethargy This is an 82 year old female with a past medical history significant for COPD on home oxygen, essential hypertension, Type 2 diabetes mellitus controlled with insulin, history of CHF, anxiety, depression, with admission to [facility] in May with acute cholecystitis. At that time the patient and family opted for conservative management as she did not want to have surgery due to multiple comorbidities. She improved with antibiotics and IV fluids. Today, the patient came to the ED with altered mental status and decreased po intake. As per the grand daughter, the patient has not eaten or drank anything since yesteday. She comes in acutely confused and not sure where she is. According to family this is not her baseline as she is normally alert and oriented and able to converse without problem. In addition to this complaint, this morning she began complaining of increased generalized abdominal pain; now it is localized to the right upper quadrant. She stated to family that it was sharp and came in waves; occasionally severe. She has also been having increased left hip pain for the last 2 days. I was not able to converse with her due to alteration of mental status; this history was obtained from the grand daughter and daughter in law. In the ED, the patient was noted to be hypotensive but responded well to fluids. a CT scan of the left hip revealed findings concerning for avascular necrosis; Dr. Davenport was called for orthopedic consultation. CT scan of the abdomen and pelvis was performed which showed findings similar to Mayda; with distended gallbladder with gallstones and pericholic edema consistent with acute cholecystitis. I spoke to the son and his over the phone along with the granddaughter: the family is again opting for conservative management at this time over surgery and only want surgery if it is lifesaving. We will give the patient Zosyn, IV fluids, and will f/u with consultants. Patient is DNR/DNI as per family: this decision was made two weeks ago as well by the patient herself. Family is willing to rescind the DNR/DNI for surgery if necessary. Present on Admission - Present on Admission Any Indicators Present on Admission: No Review of Systems - Review of Systems Systems not reviewed;Unavailable: Altered Mental Status Past Patient History - Infectious Disease Hx of Infectious Diseases: None - Tetanus Immunizations Tetanus Immunization: Unknown - Past Medical History & Family History Past Medical History?: Yes - Past Social History Smoking Status: Former Smoker (quit in 2006, intermediate smoker before) Alcohol: None Drugs: Denies - CARDIAC Hx Congestive Heart Failure: No Hx Hypercholesterolemia: No Hx Hypertension: Yes - PULMONARY Hx Asthma: Yes Hx Chronic Obstructive Pulmonary Disease (COPD): Yes Hx Emphysema: Yes Hx Pneumonia: Yes - NEUROLOGICAL Hx Seizures: No - HEENT Hx HEENT Problems: No - RENAL Hx Chronic Kidney Disease: No - ENDOCRINE/METABOLIC Hx Hypothyroidism: Yes - HEMATOLOGICAL/ONCOLOGICAL Hx Anemia: Yes Hx Human Immunodeficiency Virus (HIV): No - INTEGUMENTARY Hx Dermatological Problems: Yes Other/Comment: Sacral redness. right buttock wound. left buttock redness - MUSCULOSKELETAL/RHEUMATOLOGICAL Hx Arthritis: Yes Hx Rheumatoid Arthritis: Yes - GASTROINTESTINAL Hx Gastritis: Yes - GENITOURINARY/GYNECOLOGICAL Hx Uterine Cancer: Yes Hx Urinary Tract Infection: Yes - PSYCHIATRIC Hx Anxiety: Yes Hx Depression: Yes - SURGICAL HISTORY Hx Appendectomy: Yes - ANESTHESIA Hx Anesthesia: Yes Hx Anesthesia Reactions: No Hx Malignant Hyperthermia: No Meds Allergies/Adverse Reactions: Allergies Allergy/AdvReac Type Severity Reaction Status Date / Time No Known Allergies Allergy Verified 03/04/16 15:46 Physical Exam - Additional Findings Additional findings: Physical exam: Constitutional- Lethargy but arousable to voice, verbally responds slowly to questions but unable to be understood Head- NCAT, PERRL Eye- PERRL, normal accommodation ENT- normal exam, MMM. Neck- normal inspection, supple, no JVD Respiratory- CTAB, minimal wheezing bilaterally, no rhonchi or rales Cardiovascular- RRR, +S1, +S2 no MRG GI/Abdominal- normal bowel sounds, soft, + Tendnerness to right upper quadrant, no mass, no hsm Skin- warm, dry Extremities Exam- Patient has bilateral kincaid wounds after fall 2 weeks ago, left side healing well, right side slowly healing, wound about 1 x 2 cm in diameter. normal capillary refill. Neurological Exam- lethargic, CN II-XII intact Results - Vital Signs Recent Vital Signs: Last Vital Signs Temp 98 F 10/12/17 11:19 Pulse 79 10/12/17 15:21 Resp 17 10/12/17 15:21 BP 100/50 L 10/12/17 15:21 Pulse Ox 97 12/04/17 16:32 - Labs Result Diagrams: 10/12/17 12:20 10/12/17 14:30 Labs: Laboratory Results - last 24 hr 10/12/17 10/12/17 10/12/17 12:08 12:20 12:20 WBC 11.6 H RBC 3.85 Hgb 10.8 L Hct 34.4 MCV 89.3 MCH 28.0 MCHC 31.3 L RDW 17.5 H Plt Count 122 L D MPV 8.5 Neut % (Auto) 90.5 H Lymph % (Auto) 4.6 L [place] % (Auto) 3.0 Eos % (Auto) 1.1 Baso % (Auto) 0.8 Neut # 10.5 H Lymph # 0.5 L [place] # 0.3 Eos # 0.1 Baso # 0.1 Neutrophils % (Manual) 86 H Lymphocytes % (Manual) 6 L Monocytes % (Manual) 5 Eosinophils % (Manual) 3 Platelet Estimate Decreased L Large Platelets Present Hypochromasia (manual) Slight Anisocytosis (manual) Slight [place] Cells Moderate PT INR APTT Sodium 138 Potassium 5.3 H Chloride 98 Carbon Dioxide 32 H Anion Gap 13 BUN 66 H Creatinine 2.2 H Est GFR ( Amer) 26 Est GFR (Non-Af Amer) 21 Random Glucose 98 Calcium 10.0 Total Bilirubin 0.3 AST 36 ALT 32 Alkaline Phosphatase 187 H Troponin I 0.0200 Total Protein 5.9 L Albumin 3.1 L Globulin 2.8 Albumin/Globulin Ratio 1.1 Urine Color Natalie Urine Clarity Cloudy Urine pH 5.0 Ur Specific [place] 1.018 Urine Protein 30 Urine Glucose (UA) Neg Urine Ketones Negative Urine Blood Small Urine Nitrate Negative Urine Bilirubin Negative Urine Urobilinogen 0.2-1.0 Ur Leukocyte Esterase Mod Urine RBC (Auto) 2 Urine Microscopic WBC 26 H Urine Yeast (Budding) Mod H Acetaminophen 10/12/17 10/12/17 10/12/17 12:20 12:20 14:30 WBC RBC Hgb Hct MCV MCH MCHC RDW Plt Count MPV Neut % (Auto) Lymph % (Auto) [place] % (Auto) Eos % (Auto) Baso % (Auto) Neut # Lymph # [place] # Eos # Baso # Neutrophils % (Manual) Lymphocytes % (Manual) Monocytes % (Manual) Eosinophils % (Manual) Platelet Estimate Large Platelets Hypochromasia (manual) Anisocytosis (manual) [place] Cells PT 11.4 INR 1.0 APTT 31.0 Sodium Potassium 5.0 Chloride Carbon Dioxide Anion Gap BUN Creatinine Est GFR ( Amer) Est GFR (Non-Af Amer) Random Glucose Calcium Total Bilirubin AST ALT Alkaline Phosphatase Troponin I Total Protein Albumin Globulin Albumin/Globulin Ratio Urine Color Urine Clarity Urine pH Ur Specific [place] Urine Protein Urine Glucose (UA) Urine Ketones Urine Blood Urine Nitrate Urine Bilirubin Urine Urobilinogen Ur Leukocyte Esterase Urine RBC (Auto) Urine Microscopic WBC Urine Yeast (Budding) Acetaminophen 11.0 Assessment & Plan - Assessment and Plan (Free Text) Plan: ASSESSMENT/PLAN 82 yo female admitted for altered mental status, acute cholecystitis, question of left hip avascular necrosis, and + fungus in urine. 1) Altered mental status, likely multifactorial causes, related to acute cholecystitis, fungal UTI, possible metabolic encephalopathy as well. 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 Davenport - F/u for further recommendations 3) Acute cholecystitis - General surgery consultation with Dr. Mitchell - Patient's family wants conservative management for now - Continue IVF, Zosyn - ID consultation with Dr. Sterling - Hopefully the patient will improve on her own without surgical intervention 4) Acute kidney injury - Due to failure to thrive, decreased po intake - IVF given in ED- will continue normal saline at 125 cc/hour - Recheck BMP in AM 5) COPD - ABG as above to evaluate for hypercapnia - Continue Albuterol - Continue Duoneb - Continue Singulair - Appears stable w/out exacerbation 6) Hypertension - Continue Verapamil with holding parameters - D/C Avapro due to JADE 7) DVT prophylaxis Heparin SQ
--- NOTE | 2017-10-12 19:22 | CP.PCM.PN ---
Subjective - Date & Time of Evaluation Date of Evaluation: 10/12/17 Time of Evaluation: 19:22 - Subjective Subjective: I D NOTE RREVIEWED CHART,LABS NOTED CONTINUE ZOSYN IN RENAL ADJUSTED DOSE HAVE ADDED MEROPENEM FOR PRESENT AT 500MG [id number] Objective - Vital Signs/Intake and Output Vital Signs (last 24 hours): Temp Pulse Resp BP Pulse Ox 97.7 F 89 22 113/56 L 91 L 10/12/17 18:55 10/12/17 18:55 10/12/17 18:55 10/12/17 18:55 10/12/17 18:55 - Medications Medications: Current Medications Acetaminophen (Tylenol 325mg Tab) 650 mg PO Q6 PRN PRN Reason: Pain, Mild (1-3) Albuterol Sulfate (Albuterol 0.083% Inhal Ro (2.5 Mg/3 Ml) Ud) 2.5 mg IH RQ4 PRN PRN Reason: Shortness of Breath Last Admin: 10/12/17 16:26 Dose: 2.5 mg Albuterol/Ipratropium (Duoneb 3 Mg/0.5 Mg (3 Ml) Ud) 3 ml IH RQ6 PRN PRN Reason: Shortness of Breath Doxazosin Mesylate (Cardura) 8 mg PO DAILY [facility] Fluconazole (Diflucan) 200 mg PO DAILY [facility] PRN Reason: Protocol Last Admin: 10/12/17 16:34 Dose: 200 mg Furosemide (Lasix) 20 mg PO DAILY [facility] Glipizide (Glucotrol Xl) 5 mg PO DAILY [facility] Heparin Sodium (Porcine) (Heparin) 5,000 units SC Q8 [facility] PRN Reason: Protocol Last Admin: 10/12/17 18:00 Dose: 5,000 units Piperacillin Sod/Tazobactam (Sod 2.25 gm/ Sodium Chloride) 100 mls @ 100 mls/ hr IVPB Q6 [facility] PRN Reason: Protocol Last Admin: 10/12/17 16:29 Dose: 100 mls/hr Meropenem 500 mg/ Sodium (Chloride) 50 mls @ 50 mls/hr IVPB Q24H [facility] PRN Reason: Protocol Insulin Detemir (Levemir) 10 units SC HS [facility] Insulin Human Regular (Humulin R) 0 units SC ACCU-CHECK [facility] PRN Reason: Protocol Last Admin: 10/12/17 16:43 Dose: Not Given Montelukast Sodium (Singulair) 10 mg PO HS [facility] Multivitamins/Minerals (Therapeutic-M Tab) 1 tab PO DAILY [facility] Pantoprazole Sodium (Protonix Ec Tab) 40 mg PO DAILY [facility] Temazepam (Restoril) 30 mg PO HS [facility] Verapamil HCl (Calan Sr Tab) 240 mg PO DAILY [facility] - Labs Labs: 10/12/17 12:20 10/12/17 14:30 PT 11.4 Seconds (9.8-13.1) 10/12/17 12:20 INR 1.0 (0.9-1.2) 10/12/17 12:20 APTT 31.0 Seconds (25.6-37.1) 10/12/17 12:20
[2017-10-12] MEDS ORDERED: Insulin Detemir 100 Units/ml Inj SC SCH (22:00)
[2017-10-12] MEDS: Meropenem 500 MG in Sodium Chloride 0.9% 50 ML IVPB SCH (22:54)
[2017-10-13] MEDS ORDERED: Dextrose 50% SYRINGE Inj (50 ml) IVP ONE (05:33)
[2017-10-13 05:43] LABS: HEMATOCRIT 31.6 % (34.0-47.0); MEAN CELL VOLUME 89.5 fl (81.0-99.0); MEAN CORPUSCULAR HEMOGLOBIN 28.3 pg (27.0-31.0); MEAN CORPUSCULAR HGB CONC 31.6 g/dL (33.0-37.0); RED CELL DISTRIBUTION WIDTH 17.2 % (11.5-14.5); WHITE BLOOD COUNT 12.6 K/uL (4.8-10.8)
[2017-10-13 06:18] LABS: CALCIUM 8.9 mg/dL (8.4-10.2); POTASSIUM 4.2 MMOL/L (3.6-5.0)
--- NOTE | 2017-10-13 07:21 | CP.PCM.CON ---
History of Present Illness - History of Present Illness History of Present Illness: Orthopedic consultation Dr. Davenport 82F with complaints of left and right hip pain x 2-3 days per chart. Patient was admitted for altered mental status and poor PO intake. At this time, patient doesn't follow commands or answer questions. History is from chart. She had a fall approx 1 month ago per chart. Per chart, family only wants lifesaving surgical intervention, and patient is DNR/DNI Review of Systems - Review of Systems Systems not reviewed;Unavailable: Altered Mental Status Past Patient History - Infectious Disease Hx of Infectious Diseases: None - Tetanus Immunizations Tetanus Immunization: Unknown - Past Medical History & Family History Past Medical History?: Yes Past Family History: Reviewed and not pertinent - Past Social History Smoking Status: Current Some Days Smoker - CARDIAC Hx Cardiac Disorders: Yes Hx Congestive Heart Failure: Yes Hx Hypercholesterolemia: Yes - PULMONARY Hx Respiratory Disorders: Yes Hx Chronic Obstructive Pulmonary Disease (COPD): Yes Hx Pneumonia: Yes - NEUROLOGICAL Hx Neurological Disorder: No Hx Seizures: No - HEENT Hx HEENT Problems: No - RENAL Hx Chronic Kidney Disease: No - ENDOCRINE/METABOLIC Hx Endocrine Disorders: Yes Hx Diabetes Mellitus Type 2: Yes Hx Hypothyroidism: Yes - HEMATOLOGICAL/ONCOLOGICAL Hx Blood Disorders: No Hx AIDS: No Hx Human Immunodeficiency Virus (HIV): No - INTEGUMENTARY Hx Dermatological Problems: No - MUSCULOSKELETAL/RHEUMATOLOGICAL Hx Musculoskeletal Disorders: Yes Hx Falls: Yes - GASTROINTESTINAL Hx Gastrointestinal Disorders: Yes Hx Gastritis: Yes - GENITOURINARY/GYNECOLOGICAL Hx Genitourinary Disorders: Yes Hx Uterine Cancer: Yes Hx Urinary Tract Infection: Yes - PSYCHIATRIC Hx Psychophysiologic Disorder: Yes Hx Anxiety: Yes Hx Depression: Yes Hx Substance Use: No - SURGICAL HISTORY Hx Surgeries: Yes Hx Appendectomy: Yes - ANESTHESIA Hx Anesthesia: Yes Hx Anesthesia Reactions: No Hx Malignant Hyperthermia: No Meds Allergies/Adverse Reactions: Allergies Allergy/AdvReac Type Severity Reaction Status Date / Time No Known Allergies Allergy Verified 03/04/16 15:46 - Medications Medications: Current Medications Acetaminophen (Tylenol 325mg Tab) 650 mg PO Q6 PRN PRN Reason: Pain, Mild (1-3) Albuterol Sulfate (Albuterol 0.083% Inhal Ro (2.5 Mg/3 Ml) Ud) 2.5 mg IH RQ4 PRN PRN Reason: Shortness of Breath Last Admin: 10/12/17 16:26 Dose: 2.5 mg Albuterol/Ipratropium (Duoneb 3 Mg/0.5 Mg (3 Ml) Ud) 3 ml IH RQ6 PRN PRN Reason: Shortness of Breath Doxazosin Mesylate (Cardura) 8 mg PO DAILY [facility] Fluconazole (Diflucan) 200 mg PO DAILY [facility] PRN Reason: Protocol Last Admin: 10/12/17 16:34 Dose: 200 mg Furosemide (Lasix) 20 mg PO DAILY [facility] Glipizide (Glucotrol Xl) 5 mg PO DAILY [facility] Heparin Sodium (Porcine) (Heparin) 5,000 units SC Q8 [facility] PRN Reason: Protocol Last Admin: 10/13/17 02:55 Dose: 5,000 units Piperacillin Sod/Tazobactam (Sod 2.25 gm/ Sodium Chloride) 100 mls @ 100 mls/ hr IVPB Q6 [facility] PRN Reason: Protocol Last Admin: 10/13/17 04:12 Dose: 100 mls/hr Meropenem 500 mg/ Sodium (Chloride) 50 mls @ 50 mls/hr IVPB Q24H [facility] PRN Reason: Protocol Last Admin: 10/12/17 22:54 Dose: 50 mls/hr Insulin Detemir (Levemir) 10 units SC HS [facility] Last Admin: 10/12/17 22:20 Dose: Not Given Insulin Human Regular (Humulin R) 0 units SC ACCU-CHECK [facility] PRN Reason: Protocol Last Admin: 10/12/17 22:53 Dose: Not Given Montelukast Sodium (Singulair) 10 mg PO HS [facility] Last Admin: 10/12/17 23:20 Dose: 10 mg Multivitamins/Minerals (Therapeutic-M Tab) 1 tab PO DAILY [facility] Pantoprazole Sodium (Protonix Ec Tab) 40 mg PO DAILY [facility] Temazepam (Restoril) 30 mg PO HS [facility] Last Admin: 10/12/17 23:20 Dose: 30 mg Verapamil HCl (Calan Sr Tab) 240 mg PO DAILY [facility] Physical Exam - Constitutional Appears: Confused - Head Exam Head Exam: ATRAUMATIC - Respiratory Exam Respiratory Exam: Rhonchi Additional comments: tachypnic - Extremities Exam Additional comments: Does not follow commands +DP pulses bilaterally calves soft NT neg homans Patient does not appear in pain with B hip PROM, although stiff and ROM somewhat limited no obvious distress with log roll or axial traction/compression - Neurological Exam Additional comments: awake, confused - Skin Skin Exam: Dry, Normal Color, Warm Additional comments: covered abrasion to RLE Results - Vital Signs Recent Vital Signs: Last Vital Signs Temp 98.3 F 10/13/17 06:00 Pulse 93 H 10/13/17 06:00 Resp 22 10/13/17 06:00 BP 123/66 10/13/17 06:00 Pulse Ox 98 10/13/17 06:00 - Labs Result Diagrams: 10/13/17 04:15 10/13/17 04:15 Labs: Laboratory Results - last 24 hr 10/12/17 10/12/17 10/12/17 11:32 12:08 12:20 WBC 11.6 H RBC 3.85 Hgb 10.8 L Hct 34.4 MCV 89.3 MCH 28.0 MCHC 31.3 L RDW 17.5 H Plt Count 122 L D MPV 8.5 Neut % (Auto) 90.5 H Lymph % (Auto) 4.6 L [place] % (Auto) 3.0 Eos % (Auto) 1.1 Baso % (Auto) 0.8 Neut # 10.5 H Lymph # 0.5 L [place] # 0.3 Eos # 0.1 Baso # 0.1 Neutrophils % (Manual) 86 H Lymphocytes % (Manual) 6 L Monocytes % (Manual) 5 Eosinophils % (Manual) 3 Platelet Estimate Decreased L Large Platelets Present Hypochromasia (manual) Slight Anisocytosis (manual) Slight [place] Cells Moderate PT INR APTT Sodium Potassium Chloride Carbon Dioxide Anion Gap BUN Creatinine Est GFR ( Amer) Est GFR (Non-Af Amer) POC Glucose (mg/dL) 116 H Random Glucose Calcium Total Bilirubin AST ALT Alkaline Phosphatase Troponin I Total Protein Albumin Globulin Albumin/Globulin Ratio Urine Color Natalie Urine Clarity Cloudy Urine pH 5.0 Ur Specific [place] 1.018 Urine Protein 30 Urine Glucose (UA) Neg Urine Ketones Negative Urine Blood Small Urine Nitrate Negative Urine Bilirubin Negative Urine Urobilinogen 0.2-1.0 Ur Leukocyte Esterase Mod Urine RBC (Auto) 2 Urine Microscopic WBC 26 H Urine Yeast (Budding) Mod H Acetaminophen 10/12/17 10/12/17 10/12/17 12:20 12:20 12:20 WBC RBC Hgb Hct MCV MCH MCHC RDW Plt Count MPV Neut % (Auto) Lymph % (Auto) [place] % (Auto) Eos % (Auto) Baso % (Auto) Neut # Lymph # [place] # Eos # Baso # Neutrophils % (Manual) Lymphocytes % (Manual) Monocytes % (Manual) Eosinophils % (Manual) Platelet Estimate Large Platelets Hypochromasia (manual) Anisocytosis (manual) Elizabeth Cells PT 11.4 INR 1.0 APTT 31.0 Sodium 138 Potassium 5.3 H Chloride 98 Carbon Dioxide 32 H Anion Gap 13 BUN 66 H Creatinine 2.2 H Est GFR ( Amer) 26 Est GFR (Non-Af Amer) 21 POC Glucose (mg/dL) Random Glucose 98 Calcium 10.0 Total Bilirubin 0.3 AST 36 ALT 32 Alkaline Phosphatase 187 H Troponin I 0.0200 Total Protein 5.9 L Albumin 3.1 L Globulin 2.8 Albumin/Globulin Ratio 1.1 Urine Color Urine Clarity Urine pH Ur Specific [place] Urine Protein Urine Glucose (UA) Urine Ketones Urine Blood Urine Nitrate Urine Bilirubin Urine Urobilinogen Ur Leukocyte Esterase Urine RBC (Auto) Urine Microscopic WBC Urine Yeast (Budding) Acetaminophen 11.0 10/12/17 10/12/17 10/12/17 14:30 16:35 17:20 WBC RBC Hgb Hct MCV MCH MCHC RDW Plt Count MPV Neut % (Auto) Lymph % (Auto) [place] % (Auto) Eos % (Auto) Baso % (Auto) Neut # Lymph # [place] # Eos # Baso # Neutrophils % (Manual) Lymphocytes % (Manual) Monocytes % (Manual) Eosinophils % (Manual) Platelet Estimate Large Platelets Hypochromasia (manual) Anisocytosis (manual) Elizabeth Cells PT INR APTT Sodium Potassium 5.0 Chloride Carbon Dioxide Anion Gap BUN Creatinine Est GFR ( Amer) Est GFR (Non-Af Amer) POC Glucose (mg/dL) 51 L 191 H Random Glucose Calcium Total Bilirubin AST ALT Alkaline Phosphatase Troponin I Total Protein Albumin Globulin Albumin/Globulin Ratio Urine Color Urine Clarity Urine pH Ur Specific [place] Urine Protein Urine Glucose (UA) Urine Ketones Urine Blood Urine Nitrate Urine Bilirubin Urine Urobilinogen Ur Leukocyte Esterase Urine RBC (Auto) Urine Microscopic WBC Urine Yeast (Budding) Acetaminophen 10/12/17 10/13/17 10/13/17 22:01 04:15 04:15 WBC 12.6 H RBC 3.53 L Hgb 10.0 L Hct 31.6 L MCV 89.5 MCH 28.3 MCHC 31.6 L RDW 17.2 H Plt Count 111 L MPV Neut % (Auto) Lymph % (Auto) [place] % (Auto) Eos % (Auto) Baso % (Auto) Neut # Lymph # [place] # Eos # Baso # Neutrophils % (Manual) Lymphocytes % (Manual) Monocytes % (Manual) Eosinophils % (Manual) Platelet Estimate Large Platelets Hypochromasia (manual) Anisocytosis (manual) [place] Cells PT INR APTT Sodium 143 Potassium 4.2 Chloride 103 Carbon Dioxide 31 H Anion Gap 13 BUN 54 H Creatinine 1.8 H Est GFR ( Amer) 33 Est GFR (Non-Af Amer) 27 POC Glucose (mg/dL) 76 Random Glucose 58 L Calcium 8.9 Total Bilirubin AST ALT Alkaline Phosphatase Troponin I Total Protein Albumin Globulin Albumin/Globulin Ratio Urine Color Urine Clarity Urine pH Ur Specific [place] Urine Protein Urine Glucose (UA) Urine Ketones Urine Blood Urine Nitrate Urine Bilirubin Urine Urobilinogen Ur Leukocyte Esterase Urine RBC (Auto) Urine Microscopic WBC Urine Yeast (Budding) Acetaminophen 10/13/17 10/13/17 05:29 06:34 WBC RBC Hgb Hct MCV MCH MCHC RDW Plt Count MPV Neut % (Auto) Lymph % (Auto) [place] % (Auto) Eos % (Auto) Baso % (Auto) Neut # Lymph # [place] # Eos # Baso # Neutrophils % (Manual) Lymphocytes % (Manual) Monocytes % (Manual) Eosinophils % (Manual) Platelet Estimate Large Platelets Hypochromasia (manual) Anisocytosis (manual) Elizabeth Cells PT INR APTT Sodium Potassium Chloride Carbon Dioxide Anion Gap BUN Creatinine Est GFR ( Amer) Est GFR (Non-Af Amer) POC Glucose (mg/dL) 58 L 129 H Random Glucose Calcium Total Bilirubin AST ALT Alkaline Phosphatase Troponin I Total Protein Albumin Globulin Albumin/Globulin Ratio Urine Color Urine Clarity Urine pH Ur Specific [place] Urine Protein Urine Glucose (UA) Urine Ketones Urine Blood Urine Nitrate Urine Bilirubin Urine Urobilinogen Ur Leukocyte Esterase Urine RBC (Auto) Urine Microscopic WBC Urine Yeast (Budding) Acetaminophen - Impressions Impression: Patient Name / ID : JAZMYNE ELKINS / [id number] Exam Date : 10/12/2017 13:17:58 ( Approved ) Study Comment : Sex / Age : F / 82Y Creator : Destiny South MD Dictator : Destiny South MD Cisco Administrator : Hack Saw Operator : Destiny South MD Approver2 : Report Date : 10/12/2017 14:48:51 My Comment : PROCEDURE: CT of the Right Hip. HISTORY: Hip pain COMPARISON: None available. TECHNIQUE: Contiguous axial images of the right hip were obtained. Coronal and sagittal reformats were generated. This CT exam was performed using one or more of the following dose reduction techniques: Automated exposure control, adjustment of the mA and/or kV according to patient size, and/or use of iterative reconstruction technique. FINDINGS: BONES: There is no acute displaced fracture or bone destruction. Bone alignment is normal. There is diffuse bone demineralization. RIGHT HIP JOINT: There is moderate degenerative osteoarthrosis with reduced superolateral joint space and marginal osteophytes. SOFT TISSUES: Unremarkable. IMPRESSION: No acute displaced fracture or dislocation. Moderate degenerative osteoarthrosis in the hip joint. Patient Name / ID : JAZMYNE ELKINS / [id number] Exam Date : 10/12/2017 13:17:58 ( Addendum_Approved ) Study Comment : Sex / Age : F / 82Y Creator : Destiny South MD Dictator : Destiny South MD Cisco Administrator : Hack Saw Operator : Destiny South MD Approver2 : Report Date : 10/12/2017 14:43:22 My Comment : ADDENDUM: This addendum is in regards to an error in the technique paragraph. CT of the left hip was performed. PROCEDURE: CT scan of the left hip without contrast. HISTORY: Hip pain COMPARISON: None available. TECHNIQUE: Contiguous axial images of left hip were obtained. Coronal and sagittal reformats were generated. This CT exam was performed using one or more of the following dose reduction techniques: Automated exposure control, adjustment of the mA and/or kV according to patient size, and/or use of iterative reconstruction technique. FINDINGS: BONES: There is no acute displaced fracture or bone destruction. Bone alignment is normal. There is diffuse bone demineralization. RIGHT HIP JOINT: There is mild flattening of the anterior femoral head and subarticular lucency with sclerosis. There is also moderate degenerative osteoarthrosis with reduced joint space and marginal spurring in the os acetabulum. SOFT TISSUES: The periarticular soft tissues are normal. IMPRESSION: 1. 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 Also noted is moderate degenerative osteoarthrosis. MRI of the hip would be helpful for definitive evaluation. 2. No acute displaced fracture or dislocation. [ Addendum Report Added by Destiny South MD at 10/12/2017 14:50:16 ] PROCEDURE: CT scan of the left hip without contrast. HISTORY: Hip pain COMPARISON: None available. TECHNIQUE: Contiguous axial images of the right hip were obtained. Coronal and sagittal reformats were generated. This CT exam was performed using one or more of the following dose reduction techniques: Automated exposure control, adjustment of the mA and/or kV according to patient size, and/or use of iterative reconstruction technique. FINDINGS: BONES: There is no acute displaced fracture or bone destruction. Bone alignment is normal. There is diffuse bone demineralization. RIGHT HIP JOINT: There is mild flattening of the anterior femoral head and subarticular lucency with sclerosis. There is also moderate degenerative osteoarthrosis with reduced joint space and marginal spurring in the os acetabulum. SOFT TISSUES: The periarticular soft tissues are normal. IMPRESSION: 1. 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 Also noted is moderate degenerative osteoarthrosis. MRI of the hip would be helpful for definitive evaluation. 2. No acute displaced fracture or dislocation. 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 Davenport, agrees with above Status: Acute (2) Degenerative joint disease of right hip Status: Acute (3) Degenerative joint disease of left hip Status: Acute
[2017-10-13] MEDS ORDERED: Influenza Vaccine 18yr & older 0.5 ML/45 MCG SYR IM ONE (07:30)
[2017-10-13] MEDS ORDERED: Pneumococcal 23-Valent Vaccine IM ONE (07:31)
[2017-10-13] MEDS: Insulin Regular 100 units/ml SC SCH ×4 (07:40→22:36)
[2017-10-13] MEDS: Pantoprazole 40 mg EC Tab PO SCH (08:43)
[2017-10-13] MEDS: Multivitamin With Minerals Tab PO SCH (08:46)
[2017-10-13] MEDS: Verapamil 240 mg ER Tab PO SCH (08:47)
[2017-10-13] MEDS ORDERED: GlipiZIDE 5 mg SR Tab PO SCH (09:00)
--- NOTE | 2017-10-13 09:32 | CP.PCM.PN ---
Subjective - Date & Time of Evaluation Date of Evaluation: 10/13/17 Time of Evaluation: 07:30 - Subjective Subjective: General surgery progress note for Dr. Mychal Barnes, PGY-1 Pt S & E at bedside. Pt alert, awake, more oriented today. Able to answer some simple questions. Denies N & V, F & C, ab pain. No other complaints. Objective - Vital Signs/Intake and Output Vital Signs (last 24 hours): Temp Pulse Resp BP Pulse Ox 96.5 F L 115 H 18 148/66 95 10/13/17 08:00 10/13/17 08:47 10/13/17 08:00 10/13/17 08:47 10/13/17 08:00 Intake and Output: 10/13/17 10/13/17 06:59 18:59 Output Total 1700 Balance -1700 - Medications Medications: Current Medications Acetaminophen (Tylenol 325mg Tab) 650 mg PO Q6 PRN PRN Reason: Pain, Mild (1-3) Albuterol Sulfate (Albuterol 0.083% Inhal Ro (2.5 Mg/3 Ml) Ud) 2.5 mg IH RQ4 PRN PRN Reason: Shortness of Breath Last Admin: 10/12/17 16:26 Dose: 2.5 mg Albuterol/Ipratropium (Duoneb 3 Mg/0.5 Mg (3 Ml) Ud) 3 ml IH RQ6 PRN PRN Reason: Shortness of Breath Last Admin: 10/13/17 08:48 Dose: 3 ml Doxazosin Mesylate (Cardura) 8 mg PO DAILY [facility] Last Admin: 10/13/17 08:43 Dose: 8 mg Fluconazole (Diflucan) 200 mg PO DAILY [facility] PRN Reason: Protocol Last Admin: 10/13/17 08:57 Dose: 200 mg Furosemide (Lasix) 20 mg PO DAILY [facility] Last Admin: 10/13/17 08:44 Dose: 20 mg Glipizide (Glucotrol Xl) 5 mg PO DAILY [facility] Heparin Sodium (Porcine) (Heparin) 5,000 units SC Q8 [facility] PRN Reason: Protocol Last Admin: 10/13/17 02:55 Dose: 5,000 units Piperacillin Sod/Tazobactam (Sod 2.25 gm/ Sodium Chloride) 100 mls @ 100 mls/ hr IVPB Q6 [facility] PRN Reason: Protocol Last Admin: 10/13/17 09:00 Dose: 100 mls/hr Meropenem 500 mg/ Sodium (Chloride) 50 mls @ 50 mls/hr IVPB Q24H [facility] PRN Reason: Protocol Last Admin: 10/12/17 22:54 Dose: 50 mls/hr Insulin Detemir (Levemir) [address] [facility] Last Admin: 10/12/17 22:20 Dose: Not Given Insulin Human Regular (Humulin R) 0 units SC ACCU-CHECK [facility] PRN Reason: Protocol Last Admin: 10/12/17 22:53 Dose: Not Given Montelukast Sodium (Singulair) 10 mg PO HS [facility] Last Admin: 10/12/17 23:20 Dose: 10 mg Multivitamins/Minerals (Therapeutic-M Tab) 1 tab PO DAILY [facility] Last Admin: 10/13/17 08:46 Dose: 1 tab Pantoprazole Sodium (Protonix Ec Tab) 40 mg PO DAILY [facility] Last Admin: 10/13/17 08:43 Dose: 40 mg Temazepam (Restoril) [address] [facility] Last Admin: 10/12/17 23:20 Dose: 30 mg Verapamil HCl (Calan Sr Tab) 240 mg PO DAILY [facility] Last Admin: 10/13/17 08:47 Dose: 240 mg - Labs Labs: 10/13/17 04:15 10/13/17 04:15 PT 11.4 Seconds (9.8-13.1) 10/12/17 12:20 INR 1.0 (0.9-1.2) 10/12/17 12:20 APTT 31.0 Seconds (25.6-37.1) 10/12/17 12:20 - Constitutional Appears: Non-toxic, In Acute Distress - Head Exam Head Exam: ATRAUMATIC, NORMAL INSPECTION, NORMOCEPHALIC - Eye Exam Eye Exam: EOMI, Normal appearance - ENT Exam ENT Exam: Mucous Membranes Moist, Normal Exam - Neck Exam Neck Exam: Full ROM, Normal Inspection - Respiratory Exam Respiratory Exam: Clear to Ausculation Bilateral, NORMAL BREATHING PATTERN - Cardiovascular Exam Cardiovascular Exam: REGULAR RHYTHM, +S1, +S2 - GI/Abdominal Exam GI & Abdominal Exam: Soft, Normal Bowel Sounds. absent: Distended (obese), Firm , Guarding, Rigid, Tenderness - Extremities Exam Extremities Exam: Full ROM, Normal Inspection - Neurological Exam Neurological Exam: Alert, Awake, CN II-XII Intact - Psychiatric Exam Psychiatric exam: Normal Affect, Normal Mood - Skin Skin Exam: Dry, Intact, Normal Color, Warm Assessment and Plan - Assessment and Plan (Free Text) Assessment: 82F w/cholecystitis, no current ab pain, Pt more awake today. Plan: Cont with Abx Cont IVF Cont conservative mgmt as per family request NORRIS attending Molly, PGY-1
--- NOTE | 2017-10-13 12:00 | CP.PCM.PN ---
Subjective - Date & Time of Evaluation Date of Evaluation: 10/13/17 Time of Evaluation: 10:15 - Subjective Subjective: The patient was seen and examined at bedside. She is complaining of right hip and back pain today; however is not complaining of left hip pain. She is more coherent today and able to carry on a conversation. Last night the patient developed crackles after recieving 2 liters of normal saline in the ED so Lasix had to be given. The patient's breathing did improve afterwards but she is still having some crackles. As per family's wishes, and reviewing general surgery and orthopedic surgery notes, there is no surgical intervention planned at this time for either avascular necrosis of the left hip or for her cholecystitis. Patient denies any n/v/d, chest pain, abdominal pain, headache today. Objective - Vital Signs/Intake and Output Vital Signs (last 24 hours): Temp Pulse Resp BP Pulse Ox 96.5 F L 95 H 18 148/66 95 10/13/17 08:00 10/13/17 09:00 10/13/17 08:00 10/13/17 08:47 10/13/17 08:00 Intake and Output: 10/13/17 10/13/17 06:59 18:59 Output Total 1700 Balance -1700 - Medications Medications: Current Medications Acetaminophen (Tylenol 325mg Tab) 650 mg PO Q6 PRN PRN Reason: Pain, Mild (1-3) Acetaminophen/Codeine Phosphate (Tylenol/Codeine 300 Mg/30 Mg) 1 tab PO Q4 PRN PRN Reason: Pain, moderate (4-7) Albuterol Sulfate (Albuterol 0.083% Inhal Ro (2.5 Mg/3 Ml) Ud) 2.5 mg IH RQ4 PRN PRN Reason: Shortness of Breath Last Admin: 10/12/17 16:26 Dose: 2.5 mg Albuterol/Ipratropium (Duoneb 3 Mg/0.5 Mg (3 Ml) Ud) 3 ml IH RQ6 PRN PRN Reason: Shortness of Breath Last Admin: 10/13/17 08:48 Dose: 3 ml Doxazosin Mesylate (Cardura) 8 mg PO DAILY [facility] Last Admin: 10/13/17 08:43 Dose: 8 mg Fluconazole (Diflucan) 200 mg PO DAILY [facility] PRN Reason: Protocol Last Admin: 10/13/17 08:57 Dose: 200 mg Furosemide (Lasix) 20 mg PO DAILY [facility] Last Admin: 10/13/17 08:44 Dose: 20 mg Glipizide (Glucotrol Xl) 5 mg PO DAILY [facility] Heparin Sodium (Porcine) (Heparin) 5,000 units SC Q8 [facility] PRN Reason: Protocol Last Admin: 10/13/17 02:55 Dose: 5,000 units Piperacillin Sod/Tazobactam (Sod 2.25 gm/ Sodium Chloride) 100 mls @ 100 mls/ hr IVPB Q6 [facility] PRN Reason: Protocol Last Admin: 10/13/17 09:00 Dose: 100 mls/hr Meropenem 500 mg/ Sodium (Chloride) 50 mls @ 50 mls/hr IVPB Q24H [facility] PRN Reason: Protocol Last Admin: 10/12/17 22:54 Dose: 50 mls/hr Insulin Detemir (Levemir) 10 units SC HS [facility] Last Admin: 10/12/17 22:20 Dose: Not Given Insulin Human Regular (Humulin R) 0 units SC ACCU-CHECK [facility] PRN Reason: Protocol Last Admin: 10/12/17 22:53 Dose: Not Given Montelukast Sodium (Singulair) 10 mg PO HS [facility] Last Admin: 10/12/17 23:20 Dose: 10 mg Multivitamins/Minerals (Therapeutic-M Tab) 1 tab PO DAILY [facility] Last Admin: 10/13/17 08:46 Dose: 1 tab Pantoprazole Sodium (Protonix Ec Tab) 40 mg PO DAILY [facility] Last Admin: 10/13/17 08:43 Dose: 40 mg Temazepam (Restoril) 30 mg PO HS [facility] Last Admin: 10/12/17 23:20 Dose: 30 mg Verapamil HCl (Calan Sr Tab) 240 mg PO DAILY [facility] Last Admin: 10/13/17 08:47 Dose: 240 mg - Labs Labs: 10/13/17 04:15 10/13/17 04:15 PT 11.4 Seconds (9.8-13.1) 10/12/17 12:20 INR 1.0 (0.9-1.2) 10/12/17 12:20 APTT 31.0 Seconds (25.6-37.1) 10/12/17 12:20 - Additional Findings Additional findings: Physical exam: Constitutional- More awake today, complains of right hip and back pain. Alert. She appears pale however Head- NCAT, PERRL Eye- PERRL, normal accommodation ENT- normal exam, MMM. Neck- normal inspection, supple, no JVD Respiratory- Bilateral rales more prominent in the bases, wheezing has improved. Cardiovascular- RRR, +S1, +S2 no MRG GI/Abdominal- normal bowel sounds, soft, + tenderness to ruq although improved from yesterday. Skin- warm, dry Extremities Exam- Patient has bilateral kincaid wounds after fall 2 weeks ago, left side healing well, right side slowly healing, wound about 1 x 2 cm in diameter. normal capillary refill. Neurological Exam- lethargic, CN II-XII intact Assessment and Plan - Assessment and Plan (Free Text) Plan: ASSESSMENT/PLAN 82 yo female admitted for altered mental status, acute cholecystitis, question of left hip avascular necrosis, and + fungus in urine. 1) Altered mental status, likely multifactorial causes, related to acute cholecystitis, fungal UTI, possible metabolic encephalopathy as well. R/o hypercapnia given hx of COPD - AMS improving - Continue Diflucan for tx of fungal UTI 2) Concern for avascular necrosis of the hip - Orthopedic consultation with Dr. Davenport - No surgical intervention at this time as it would not be considered a life saving procedure- family only requesting surgical intervention if this would be the case 3) Acute cholecystitis - General surgery consultation with Dr. Mitchell - Patient's family wants conservative management for now - Continue Meropenem and Zosyn - ID consultation with Dr. Sterling- abx regimen as per him 4) Acute kidney injury- - Due to failure to thrive, decreased po intake - minimal improvement with fluids- had to hold further fluid administration due to respiratory distress from fluid overload - Plan to restart gentle hydration in AM if resp status back to baseline. - Avoid nephrotoxic medications if possble - Recheck BMP in AM 5) COPD - Continue Albuterol - Continue Duoneb - Continue Singulair - Appears stable w/out exacerbation - Obtain ABG 6) Hypertension - Continue Verapamil with holding parameters - D/C Avapro due to JADE 7) DVT prophylaxis Heparin SQ
[2017-10-13 13:33] LABS: ABG ALLEN TEST YES; ARTERIAL BLOOD FLOW 3; ARTERIAL BLOOD GAS HCO3 30.5 mmol/L (21-28); ARTERIAL BLOOD GAS MODE NC; ARTERIAL BLOOD GAS O2 CAPACITY 13.9 mL/dL (16-24); ARTERIAL BLOOD GAS O2 CONTENT 13.6 ML/dL (15-23); ARTERIAL BLOOD GAS PH 7.45 (7.35-7.45); ARTERIAL BLOOD GAS PO2 89 mm/Hg (80-100); ARTERIAL BLOOD HGB O2 SAT 95.8 % (95.0-98.0); HHB 2.3 % (0.0-5.0); METHEMOGLOBIN 0.9 % (0.0-3.0)
--- NOTE | 2017-10-13 14:53 | PQF GENQUE ---
Unknown type of congestive heart failure- it is acute on chronic heart failure due to fluid overload. Dr. Bain, Please specify the type and acuity of heart failure in your progress notes: VERSUS hx. of CHF only and not a current condition 1. TYPE: Combined systolic and diastolic Diastolic Systolic Other (please specify) Clinically unable to determine Unknown 2. ACUITY: Acute Chronic Acute on chronic Other (please specify) Clinically unable to determine Unknown H and P: dxs. include: : Acute kidney injury- - Due to failure to thrive, decreased po intake - minimal improvement with fluids- had to hold further fluid administration due to respiratory distress from fluid overload - Plan to restart gentle hydration in AM if resp status back to baseline. - Avoid nephrotoxic medications if possble - Recheck BMP in AM 12 CXR: Impression :No active disease. No significant interval change compared to the prior examination(s). Lasix IV->oral daily This form is a permanent part of the medical record Clarification of your documentation is requested to better reflect the severity of illness and intensity of treatment of your patient. Indicators present [] Specify: [] [] Specify: [] [] Specify: [] [] Specify: [] Location in the medical record that reflects the above clinical findings: [] Treatment Provided: [] PHYSICIAN'S RESPONSE Based on your medical judgment of the clinical indicators outlined above please clarify the following: [] Practitioner response [] If unable to determine, please check the box, sign and date. Present On Admission (POA) Indicator: [] Present at the time of admission [] Not present at the time of admission [] Clinically Undetermined In responding to this query, please exercise your independent professional judgment. The fact that a question is asked does not imply that any particular answer is desired or expected. Thank you for your clarification on this documentation. If you have any questions please call. * Thank you, Nadia Nicolas RN ext. #[phone] MTDD
[2017-10-13] MEDS ORDERED: metOLazone 5 MG TAB PO ONE (15:06)
[2017-10-13] MEDS: Albuterol 0.083% Inhal Sol (2.5 mg/3 mL) UD IH PRN (15:29)
--- NOTE | 2017-10-13 17:25 | RAD ---
PROCEDURE: CHEST RADIOGRAPH, 1 VIEW HISTORY: increased crackles, sob COMPARISON: 10/12/2017 FINDINGS: LUNGS: Atelectasis/infiltrate left lower lobe represents a new finding. PLEURA: No pneumothorax or pleural fluid seen. CARDIOVASCULAR: Normal. OSSEOUS STRUCTURES: No significant abnormalities. VISUALIZED UPPER ABDOMEN: Normal. OTHER FINDINGS: None. IMPRESSION: Left lower lobe infiltrate/atelectasis, a finding not seen previously.
[2017-10-13] MEDS: Meropenem 500 MG in Sodium Chloride 0.9% 50 ML IVPB SCH (17:33)
[2017-10-13] MEDS: Albuterol-Ipratrop 3 mg / 0.5 (3 ml) UD IH SCH (19:19)
[2017-10-13] MEDS: Acetaminophen-Codeine 300/30 mg Tab PO PRN (22:34)
[2017-10-14] MEDS: Albuterol-Ipratrop 3 mg / 0.5 (3 ml) UD IH SCH ×4 (01:02→19:15)
[2017-10-14 06:16] LABS: BASO % 0.4 % (0.0-2.0); EOS # 0.1 K/uL (0.0-0.7); EOS % 1.4 % (0.0-4.0); HEMATOCRIT 28.1 % (34.0-47.0); LYMPH # 0.7 K/uL (1.0-4.3); LYMPH % 8.8 % (20.0-40.0); MEAN CELL VOLUME 88.4 fl (81.0-99.0); MEAN CORPUSCULAR HEMOGLOBIN 28.4 pg (27.0-31.0); MEAN CORPUSCULAR HGB CONC 32.2 g/dL (33.0-37.0); MEAN PLATELET VOLUME 9.1 fl (7.2-11.7); MONO # 0.4 K/uL (0.0-0.8); MONO % 5.6 % (0.0-10.0); NEUT # 6.3 K/uL (1.8-7.0); NEUT % 83.8 % (50.0-75.0); NRBC % 0.1 % (0.0-0.0); RED CELL DISTRIBUTION WIDTH 17.3 % (11.5-14.5); WHITE BLOOD COUNT 7.5 K/uL (4.8-10.8)
[2017-10-14 06:25] LABS: BILIRUBIN,TOTAL 0.8 mg/dl (0.2-1.3); CALCIUM 8.3 mg/dL (8.4-10.2); POTASSIUM 3.4 MMOL/L (3.6-5.0); TOTAL PROTEIN 5.1 G/DL (6.3-8.2)
[2017-10-14] MEDS: Insulin Regular 100 units/ml SC SCH ×4 (06:44→22:27)
[2017-10-14] MEDS ORDERED: Potassium Chloride 20 mEq ER Tab PO ONE (08:33)
--- NOTE | 2017-10-14 09:52 | CP.PCM.PN ---
Subjective - Date & Time of Evaluation Date of Evaluation: 10/14/17 Time of Evaluation: 09:00 - Subjective Subjective: Pt is noted to be in resp distress Rales and wheezing on examination Pt placed on 100% NRBM, ABG, CXR, ordered, IV Lasix give, Duoneb tx and IV Solumedrol given Pt is alert, oriented to person and place denies CP mild abd dicomfort complains of Low back discomfort Pt is DNR/DNI Surrogate decision maker - spouse Néstor Objective - Vital Signs/Intake and Output Vital Signs (last 24 hours): Temp Pulse Resp BP Pulse Ox 97.9 F 86 20 106/62 99 10/14/17 08:00 10/14/17 08:00 10/14/17 08:00 10/14/17 08:00 10/14/17 08:00 Intake and Output: 10/14/17 10/14/17 06:59 18:59 Intake Total 440 Output Total 550 Balance -110 - Medications Medications: Current Medications Acetaminophen (Tylenol 325mg Tab) 650 mg PO Q6 PRN PRN Reason: Pain, Mild (1-3) Acetaminophen/Codeine Phosphate (Tylenol/Codeine 300 Mg/30 Mg) 1 tab PO Q4 PRN PRN Reason: Pain, moderate (4-7) Last Admin: 10/13/17 22:34 Dose: 1 tab Albuterol Sulfate (Albuterol 0.083% Inhal Ro (2.5 Mg/3 Ml) Ud) 2.5 mg IH RQ4 PRN PRN Reason: Shortness of Breath Last Admin: 10/13/17 15:29 Dose: 2.5 mg Albuterol/Ipratropium (Duoneb 3 Mg/0.5 Mg (3 Ml) Ud) 3 ml IH RQ6 [facility] Last Admin: 10/14/17 01:02 Dose: 3 ml Doxazosin Mesylate (Cardura) 8 mg PO DAILY [facility] Last Admin: 10/13/17 08:43 Dose: 8 mg Fluconazole (Diflucan) 200 mg PO DAILY [facility] PRN Reason: Protocol Last Admin: 10/13/17 08:57 Dose: 200 mg Furosemide (Lasix) 20 mg PO DAILY [facility] Last Admin: 10/13/17 08:44 Dose: 20 mg Furosemide (Lasix) 40 mg IVP STAT STA Stop: 10/14/17 09:48 Glipizide (Glucotrol Xl) 5 mg PO DAILY [facility] Last Admin: 10/13/17 09:41 Dose: Not Given Heparin Sodium (Porcine) (Heparin) 5,000 units SC Q8 [facility] PRN Reason: Protocol Last Admin: 10/14/17 00:51 Dose: 5,000 units Piperacillin Sod/Tazobactam (Sod 2.25 gm/ Sodium Chloride) 100 mls @ 100 mls/ hr IVPB Q6 [facility] PRN Reason: Protocol Last Admin: 10/14/17 03:58 Dose: 100 mls/hr Meropenem 500 mg/ Sodium (Chloride) 50 mls @ 50 mls/hr IVPB Q24H [facility] PRN Reason: Protocol Last Admin: 10/13/17 17:33 Dose: 50 mls/hr Insulin Human Regular (Humulin R) 0 units SC ACCU-CHECK [facility] PRN Reason: Protocol Last Admin: 10/14/17 06:44 Dose: 2 units Montelukast Sodium (Singulair) 10 mg PO HS [facility] Last Admin: 10/13/17 22:20 Dose: 10 mg Multivitamins/Minerals (Therapeutic-M Tab) 1 tab PO DAILY [facility] Last Admin: 10/13/17 08:46 Dose: 1 tab Pantoprazole Sodium (Protonix Ec Tab) 40 mg PO DAILY [facility] Last Admin: 10/13/17 08:43 Dose: 40 mg Temazepam (Restoril) 30 mg PO HS [facility] Last Admin: 10/13/17 22:22 Dose: 30 mg Verapamil HCl (Calan Sr Tab) 240 mg PO DAILY [facility] Last Admin: 10/13/17 08:47 Dose: 240 mg - Labs Labs: 10/14/17 05:30 10/14/17 05:30 PT 11.4 Seconds (9.8-13.1) 10/12/17 12:20 INR 1.0 (0.9-1.2) 10/12/17 12:20 APTT 31.0 Seconds (25.6-37.1) 10/12/17 12:20 - Constitutional Appears: Toxic, In Acute Distress, Chronically Ill - Head Exam Head Exam: NORMAL INSPECTION, NORMOCEPHALIC - Eye Exam Eye Exam: EOMI, Normal appearance Pupil Exam: NORMAL ACCOMODATION - ENT Exam ENT Exam: Mucous Membranes Dry, Normal External Ear Exam - Neck Exam Neck Exam: Full ROM. absent: Meningismus - Respiratory Exam Respiratory Exam: Rales, Rhonchi, Wheezes, Respiratory Distress - Cardiovascular Exam Cardiovascular Exam: REGULAR RHYTHM, +S1, +S2 - GI/Abdominal Exam GI & Abdominal Exam: Soft, Normal Bowel Sounds. absent: Tenderness - Extremities Exam Extremities Exam: Normal Capillary Refill, Pedal Edema. absent: Calf Tenderness - Neurological Exam Neurological Exam: Awake Additional comments: oriented to person and place moves all extremities - Psychiatric Exam Psychiatric exam: Flat Affect - Skin Skin Exam: Dry, Normal Color, Warm Assessment and Plan - Assessment and Plan (Free Text) Assessment: This is an 82 year old female with a past medical history significant for COPD on home oxygen, essential hypertension, Type 2 diabetes mellitus controlled with insulin, history of CHF, anxiety, depression, with admission to [facility] in May with acute cholecystitis. At that time the patient and family opted for conservative management as she did not want to have surgery due to multiple comorbidities. She improved with antibiotics and IV fluids. Today, the patient came to the ED with altered mental status and decreased po intake. CT of abdomen:1. Redemonstration of distended gallbladder, small gallstones, diffuse gall bladder wall thickening and irregularity and questionable small pericholecystic in the region of the fundus. Findings may represent acute calculus cholecystitis in the appropriate clinical setting. 2. Left colonic diverticulosis without CT evidence for acute diverticulitis. 1) Altered mental status, likely multifactorial causes, related to INfection ( acute cholecystitis, fungal UTI, PNA) possible metabolic encephalopathy as well sec to hypercapnia given hx of COPD - AMS improving - cont IV abx for tx of Cholecystitis - Continue Diflucan for tx of fungal UTI - started on High Flow Oxygen 2. Acute on Chronic Respiratory Failure with Hypoxia and Hypercapnea sec to COPD exacerbation , CHF exacebation and poss Pneumonia -Pt has been dyspneic with rales and wheezing on exam. - CXR : LLF infiltrate vs Atelectasis -ABG : 7.37 61/424/100% on 100-% NRBM - started on High Flow Oxygen - Pulm consulted_ discussed case with dr Greene - Lasix given 3) avascular necrosis of the hip - Orthopedic consultation with Dr. Davenport - No surgical intervention at this time as it would not be considered a life saving procedure- family only requesting surgical intervention if this would be the case 4) Acute cholecystitis - General surgery consultation with Dr. Mitchell - Patient's family wants conservative management for now - Continue Meropenem and Zosyn - ID consultation with Dr. Sterling- abx regimen as per him 5) Acute kidney injury- - Due to failure to thrive, decreased po intake - minimal improvement with fluids- had to hold further fluid administration due to respiratory distress from fluid overload - Plan to restart gentle hydration if resp status back to baseline. - Avoid nephrotoxic medications if possble - Recheck BMP in AM 6) COPD exacerbation - - IV Solumeddrol 125 mg give, cont 40mg daily - Continue Albuterol - Continue Duoneb - Continue Singulair 7. CAP ( prob bacterial) - CXR : LLL infilt vs atelectasis - pt is on IV Zosyn and Meropenem 8. UTI ? Fungal - pt on Diflucan 9. CHF eacerbation, systolic and diastolic ECHO done last year showed EF 35% cont Lasix Hold ARB due to JADE no BB due to COPD 10. Hypertension - Continue Verapamil with holding parameters - Hold Avapro due to JADE 7) DVT prophylaxis Heparin SQ
[2017-10-14] MEDS ORDERED: methylPREDNISolone 125 MG in Sodium Chloride 0.9% 50 ML IV STA (10:01)
[2017-10-14] MEDS ORDERED: Sodium Chloride 3% for Inhalation 4 ML VIAL.NEB IH PRN (10:21)
[2017-10-14] MEDS ORDERED: methylPREDNISolone 40 MG in Sodium Chloride 0.9% 50 ML IVPB SCH (10:30)
[2017-10-14 10:46] LABS: ABG ALLEN TEST YES; ARTERIAL BLOOD GAS HCO3 31.3 mmol/L (21-28); ARTERIAL BLOOD GAS O2 CAPACITY 16.7 mL/dL (16-24); ARTERIAL BLOOD GAS O2 CONTENT 16.8 ML/dL (15-23); ARTERIAL BLOOD GAS PH 7.37 (7.35-7.45); ARTERIAL BLOOD GAS PO2 424 mm/Hg (80-100); ARTERIAL BLOOD HGB O2 SAT 96.9 % (95.0-98.0); CARBOXYHEMOGLOBIN 2.1 % (0.5-1.5); HHB -0.6 % (0.0-5.0); METHEMOGLOBIN 1.7 % (0.0-3.0)
--- NOTE | 2017-10-14 10:57 | RAD ---
PROCEDURE: Radiographs of the pelvis and bilateral hips HISTORY: hip pain COMPARISON: None. FINDINGS: BONES: The pelvic ring is intact. There is diffuse bone demineralization. There is no acute displaced fracture or bone destruction. JOINTS: There is moderate degenerative osteoarthrosis in both hip joints with reduced joint spaces and marginal spurring. There is also mild degenerative osteoarthrosis in the sacroiliac joints and there is mild osteitis pubis. SOFT TISSUES: Normal. OTHER FINDINGS: There are advanced atherosclerotic vascular calcifications. IMPRESSION: No acute displaced fracture or dislocation. Moderate degenerative osteoarthrosis in the hip joints.
--- NOTE | 2017-10-14 11:47 | CON ---
HISTORY OF PRESENT ILLNESS: Ms. Reeves is an 82-year-old female, who is referred for pulmonary evaluation because of shortness of breath and chest tightness and lethargy. She was admitted with acute cholecystitis and vascular necrosis of the right hip and referred for the above. She is awake, but drowsy and unable to give any history. PAST MEDICAL HISTORY: Remarkable for cardiac arrhythmias and chronic obstructive pulmonary disease. As per family's request and as per the patient's request, no surgical intervention is entertained at present. She is also on the chart as do not resuscitate and do not intubate. She is presently awake with 100% nonrebreather oxygen mask on her face and appears weak and lethargic. PHYSICAL EXAMINATION: VITAL SIGNS: Blood pressure 106/62 with a pulse of 86, respiratory rate is 20 to 25 per minute, O2 sat 99% on 100% nonrebreather. SKIN: Shows poor turgor. HEENT: Pupils equal and reactive to light and accommodation. Mouth is dry with mucous engorgement of pharynx. LUNGS: Coarse bilateral rales. HEART: S1 and S2. BREASTS: Normal. ABDOMEN: Soft with tenderness in the right upper quadrant area. EXTREMITIES: Trace pitting pedal edema. CENTRAL NERVOUS SYSTEM: The patient is drowsy. I was unable to evaluate this completely. Chest x-ray shows bilateral pulmonary congestion with atelectasis of the bases. LABORATORY DATA: WBC 7.5, hemoglobin 9.0, platelet count of 95,000. Sodium 142, potassium 3.4, BUN of 51, creatinine 1.5, serum glucose 163. EKG, normal sinus rhythm. Right bundle-branch block. Nonspecific ST-T changes. IMPRESSION: An 82-year-old with acute cholecystitis and aseptic necrosis of right hip, who has shortness of breath, which is secondary to both exacerbation of chronic obstructive pulmonary disease and superimposed pneumonia with atelectasis of the lung. PLAN: To continue supportive care as ordered. IV steroids, IV antibiotics, aerosolized bronchodilators. The patient may need high-flow oxygen if O2 sats remains low on ABG that has already been ordered. We will continue to follow with you. The prognosis is extremely poor. Barron Greene MD
[2017-10-14] MEDS: Verapamil 240 mg ER Tab PO SCH (11:54)
[2017-10-14] MEDS: Multivitamin With Minerals Tab PO SCH (11:57)
[2017-10-14] MEDS: Pantoprazole 40 mg EC Tab PO SCH (11:57)
--- NOTE | 2017-10-14 12:24 | PQF GENQUE ---
Dr. Marroquin, (1) Is there an associated diagnosis to go along with the following clinical labs and V/S : WBC:11.6->12.6->7.5 with a left shift V/S record in the EMR as follows: 10/13 Temp. low:96.6 10/13 Pulse:102->93->115->115->95 10/12 Respirations:22->22->22- labored retractive 10/12 B/P:100/50->109/58->110/63-.100/50----10/13:90/49->89/57 10/13 O2 sat.:86->94->99->93 Nasal Cannula (2) If in agreement: Infectious cause (please specify infectious process) Non-infectious cause (please specify non-infectious process) (3) OR: Disagree (4) OR: Other explanation of clinical finding 10/13 Attending progress note; admitted for altered mental status, acute cholecystitis, question of left hip avascular necrosis, and + fungus in urine. 1) Altered mental status, likely multifactorial causes, related to acute cholecystitis, fungal UTI, possible metabolic encephalopathy as well. R/o hypercapnia given hx of COPD - AMS improving - Continue Diflucan for tx of fungal UTI 2) Concern for avascular necrosis of the hip - Orthopedic consult- No surgical intervention at this time as it would not be considered a life saving procedure - family only requesting surgical intervention if this would be the case 3) Acute cholecystitis - surgery consult - family wants conservative management for now - Continue Meropenem and Zosyn - ID consultation: abx regimen 4) Acute kidney injury- - Due to failure to thrive, decreased po intake - minimal improvement with fluids- had to hold further fluid administration due to respiratory distress from fluid overload - Plan to restart gentle hydration in AM if resp status back to baseline. - Avoid nephrotoxic medications if possble - Recheck BMP in AM 5) COPD - Continue Albuterol - Continue Duoneb - Continue Singulair - Appears stable w/out exacerbation - Obtain ABG This form is a permanent part of the medical record Clarification of your documentation is requested to better reflect the severity of illness and intensity of treatment of your patient. Indicators present [] Specify: [] [] Specify: [] [] Specify: [] [] Specify: [] Location in the medical record that reflects the above clinical findings: [] Treatment Provided: [] PHYSICIAN'S RESPONSE 1. Acute Cholecystitis 2. Bacterial Pneumonia , (POA) 3. COPD exacerbation 4. Acute CHF exacerbation , systolic and diastolic dysfunction Based on your medical judgment of the clinical indicators outlined above please clarify the following: [] Practitioner response [] If unable to determine, please check the box, sign and date. Present On Admission (POA) Indicator: [] Present at the time of admission [] Not present at the time of admission [] Clinically Undetermined In responding to this query, please exercise your independent professional judgment. The fact that a question is asked does not imply that any particular answer is desired or expected. Thank you for your clarification on this documentation. If you have any questions please call. * Thank you, Nadia Nicolas RN ext. #[phone] MTDD
--- NOTE | 2017-10-14 14:12 | CP.PCM.PN ---
Subjective - Date & Time of Evaluation Date of Evaluation: 10/14/17 Time of Evaluation: 11:00 - Subjective Subjective: General surgery progress note for Dr. Mychal Barnes, PGY-1 Pt S & E w/ at bedside. Pt only complaint is SOB/difficulty breathing- is currently on high flow O2 with accessory muscle use. Denies N & V, F & C, abdominal pain. Objective - Vital Signs/Intake and Output Vital Signs (last 24 hours): Temp Pulse Resp BP Pulse Ox 99.1 F 85 20 99/50 L 94 L 10/14/17 12:42 10/14/17 12:42 10/14/17 12:42 10/14/17 12:42 10/14/17 12:42 Intake and Output: 10/14/17 10/14/17 06:59 18:59 Intake Total 440 Output Total 550 Balance -110 - Medications Medications: Current Medications Acetaminophen (Tylenol 325mg Tab) 650 mg PO Q6 PRN PRN Reason: Pain, Mild (1-3) Acetaminophen/Codeine Phosphate (Tylenol/Codeine 300 Mg/30 Mg) 1 tab PO Q4 PRN PRN Reason: Pain, moderate (4-7) Last Admin: 10/13/17 22:34 Dose: 1 tab Albuterol Sulfate (Albuterol 0.083% Inhal Ro (2.5 Mg/3 Ml) Ud) 2.5 mg IH RQ4 PRN PRN Reason: Shortness of Breath Last Admin: 10/13/17 15:29 Dose: 2.5 mg Albuterol/Ipratropium (Duoneb 3 Mg/0.5 Mg (3 Ml) Ud) 3 ml IH RQ6 [facility] Last Admin: 10/14/17 13:08 Dose: 3 ml Doxazosin Mesylate (Cardura) 8 mg PO DAILY [facility] Last Admin: 10/14/17 11:54 Dose: Not Given Fluconazole (Diflucan) 200 mg PO DAILY [facility] PRN Reason: Protocol Last Admin: 10/14/17 11:55 Dose: Not Given Furosemide (Lasix) 20 mg PO DAILY [facility] Last Admin: 10/14/17 10:59 Dose: Not Given Heparin Sodium (Porcine) (Heparin) 5,000 units SC Q8 [facility] PRN Reason: Protocol Last Admin: 10/14/17 11:55 Dose: 5,000 units Meropenem 500 mg/ Sodium (Chloride) 50 mls @ 50 mls/hr IVPB Q24H [facility] PRN Reason: Protocol Last Admin: 10/13/17 17:33 Dose: 50 mls/hr Piperacillin Sod/Tazobactam (Sod 2.25 gm/ Sodium Chloride) 50 mls @ 50 mls/hr IVPB Q6 [facility] PRN Reason: Protocol Insulin Human Regular (Humulin R) 0 units SC ACCU-CHECK [facility] PRN Reason: Protocol Last Admin: 10/14/17 11:56 Dose: Not Given Methylprednisolone (Solu-Medrol) 40 mg IVP Q12H [facility] Montelukast Sodium (Singulair) 10 mg PO HS [facility] Last Admin: 10/13/17 22:20 Dose: 10 mg Multivitamins/Minerals (Therapeutic-M Tab) 1 tab PO DAILY [facility] Last Admin: 10/14/17 11:57 Dose: Not Given Pantoprazole Sodium (Protonix Ec Tab) 40 mg PO DAILY [facility] Last Admin: 10/14/17 11:57 Dose: Not Given Temazepam (Restoril) 30 mg PO HS [facility] Last Admin: 10/13/17 22:22 Dose: 30 mg Verapamil HCl (Calan Sr Tab) 240 mg PO DAILY [facility] Last Admin: 10/14/17 11:54 Dose: Not Given - Labs Labs: 10/14/17 05:30 10/14/17 05:30 PT 11.4 Seconds (9.8-13.1) 10/12/17 12:20 INR 1.0 (0.9-1.2) 10/12/17 12:20 APTT 31.0 Seconds (25.6-37.1) 10/12/17 12:20 - Constitutional Appears: Non-toxic - Head Exam Head Exam: ATRAUMATIC, NORMAL INSPECTION, NORMOCEPHALIC - Eye Exam Eye Exam: EOMI, Normal appearance - ENT Exam ENT Exam: Mucous Membranes Moist, Normal Exam - Respiratory Exam Respiratory Exam: Accessory Muscle Use, Wheezes (mild, bilaterally). absent: Rales, Rhonchi, Stridor, NORMAL BREATHING PATTERN - Cardiovascular Exam Cardiovascular Exam: REGULAR RHYTHM, +S1, +S2 - GI/Abdominal Exam GI & Abdominal Exam: Soft, Normal Bowel Sounds. absent: Distended, Firm, Guarding, Rigid, Tenderness, Mass, Rebound - Extremities Exam Extremities Exam: Normal Inspection - Neurological Exam Neurological Exam: Alert, Awake, CN II-XII Intact, Oriented x3 - Psychiatric Exam Psychiatric exam: Normal Affect, Normal Mood - Skin Skin Exam: Dry, Intact, Normal Color, Warm Assessment and Plan - Assessment and Plan (Free Text) Assessment: 82F w/cholecystitis, currently undergoing conservative mgmt Plan: Cont IV Abx Cont pain control DW family, if pt needs intervention for cholecystitis, recommend IR consultation for cholecystostomy tube placement No surgical intervention at this time Thank you for this consult Further mgmt as per primary team DW attending Molly, PGY-1
[2017-10-14] MEDS: MethylPREDNISolone 40 mg Vial IVP SCH (16:28)
[2017-10-14] MEDS: Piperacillin/Tazobact 2.25 GM in Sodium Chloride 0.9% 50 ML IVPB SCH ×2 (16:32→22:28)
[2017-10-14] MEDS ORDERED: Potassium CL 10 MEQ/50 ML 50 ML IVPB SCH (17:00)
[2017-10-14] MEDS: Meropenem 500 MG in Sodium Chloride 0.9% 50 ML IVPB SCH (17:46)
[2017-10-14] MEDS: Lidocaine 5% Patch TD SCH (17:51)
[2017-10-14] MEDS: Potassium CL 10 MEQ/50 ML 50 ML IVPB SCH ×2 (20:01→21:28)
[2017-10-15] MEDS: Albuterol-Ipratrop 3 mg / 0.5 (3 ml) UD IH SCH ×4 (01:02→19:05)
[2017-10-15] MEDS: Piperacillin/Tazobact 2.25 GM in Sodium Chloride 0.9% 50 ML IVPB SCH ×4 (04:21→21:24)
[2017-10-15] MEDS: MethylPREDNISolone 40 mg Vial IVP SCH ×2 (04:25→16:47)
[2017-10-15 06:40] LABS: ALB/GLOB RATIO 1.1 (1.0-2.1); BILIRUBIN,TOTAL 0.6 mg/dl (0.2-1.3); CALCIUM 8.3 mg/dL (8.4-10.2); MAGNESIUM 2.2 MG/DL (1.6-2.3); POTASSIUM 3.8 MMOL/L (3.6-5.0); TOTAL PROTEIN 5.7 G/DL (6.3-8.2)
[2017-10-15 07:36] LABS: BASO % 0.1 % (0.0-2.0); EOS % 0.1 % (0.0-4.0); HEMATOCRIT 30.3 % (34.0-47.0); LYMPH # 0.6 K/uL (1.0-4.3); LYMPH % 9.3 % (20.0-40.0); MEAN CELL VOLUME 89.8 fl (81.0-99.0); MEAN CORPUSCULAR HEMOGLOBIN 28.1 pg (27.0-31.0); MEAN CORPUSCULAR HGB CONC 31.3 g/dL (33.0-37.0); MEAN PLATELET VOLUME 9.4 fl (7.2-11.7); MONO # 0.1 K/uL (0.0-0.8); MONO % 2.3 % (0.0-10.0); NEUT # 5.4 K/uL (1.8-7.0); NEUT % 88.2 % (50.0-75.0); NRBC % 0.1 % (0.0-0.0); RED CELL DISTRIBUTION WIDTH 17.7 % (11.5-14.5); WHITE BLOOD COUNT 6.1 K/uL (4.8-10.8)
[2017-10-15] MEDS: Multivitamin With Minerals Tab PO SCH (08:12)
[2017-10-15] MEDS: Pantoprazole 40 mg EC Tab PO SCH (08:12)
[2017-10-15] MEDS: Verapamil 240 mg ER Tab PO SCH (08:13)
[2017-10-15] MEDS: Insulin Regular 100 units/ml SC SCH ×5 (08:14→22:37)
[2017-10-15] MEDS: Lidocaine 5% Patch TD SCH (08:15)
--- NOTE | 2017-10-15 08:36 | CP.PCM.PN ---
Subjective - Date & Time of Evaluation Date of Evaluation: 10/15/17 Time of Evaluation: 08:37 - Subjective Subjective: MORE AWAKE AND ALERT TODAY LESS DYSPNEIC NO CHEST PAINS Objective - Vital Signs/Intake and Output Vital Signs (last 24 hours): Temp Pulse Resp BP Pulse Ox 97.5 F L 79 18 111/56 L 95 10/15/17 08:02 10/15/17 08:13 10/15/17 08:02 10/15/17 08:13 10/15/17 08:02 Intake and Output: 10/15/17 10/15/17 06:59 18:59 Intake Total 300 Output Total 700 Balance -400 - Medications Medications: Current Medications Acetaminophen (Tylenol 325mg Tab) 650 mg PO Q6 PRN PRN Reason: Pain, Mild (1-3) Acetaminophen/Codeine Phosphate (Tylenol/Codeine 300 Mg/30 Mg) 1 tab PO Q4 PRN PRN Reason: Pain, moderate (4-7) Last Admin: 10/13/17 22:34 Dose: 1 tab Albuterol Sulfate (Albuterol 0.083% Inhal Ro (2.5 Mg/3 Ml) Ud) 2.5 mg IH RQ4 PRN PRN Reason: Shortness of Breath Last Admin: 10/13/17 15:29 Dose: 2.5 mg Albuterol/Ipratropium (Duoneb 3 Mg/0.5 Mg (3 Ml) Ud) 3 ml IH RQ6 [facility] Last Admin: 10/15/17 07:41 Dose: 3 ml Doxazosin Mesylate (Cardura) 8 mg PO DAILY [facility] Last Admin: 10/15/17 08:12 Dose: 8 mg Fluconazole (Diflucan) 100 mg PO DAILY [facility] PRN Reason: Protocol Last Admin: 10/15/17 08:12 Dose: 100 mg Furosemide (Lasix) 20 mg PO DAILY [facility] Last Admin: 10/15/17 08:12 Dose: 20 mg Heparin Sodium (Porcine) (Heparin) 5,000 units SC Q8 [facility] PRN Reason: Protocol Last Admin: 10/15/17 08:14 Dose: 5,000 units Meropenem 500 mg/ Sodium (Chloride) 50 mls @ 50 mls/hr IVPB Q24H [facility] PRN Reason: Protocol Last Admin: 10/14/17 17:46 Dose: 50 mls/hr Piperacillin Sod/Tazobactam (Sod 2.25 gm/ Sodium Chloride) 50 mls @ 50 mls/hr IVPB Q6 [facility] PRN Reason: Protocol Last Admin: 10/15/17 04:21 Dose: 50 mls/hr Insulin Human Regular (Humulin R) 0 units SC ACCU-CHECK [facility] PRN Reason: Protocol Last Admin: 10/15/17 08:14 Dose: 8 units Lidocaine (Lidoderm) 1 ea TD DAILY [facility] Last Admin: 10/15/17 08:15 Dose: 1 ea Methylprednisolone (Solu-Medrol) 40 mg IVP Q12H [facility] Last Admin: 10/15/17 04:25 Dose: 40 mg Montelukast Sodium (Singulair) 10 mg PO HS [facility] Last Admin: 10/14/17 21:30 Dose: Not Given Multivitamins/Minerals (Therapeutic-M Tab) 1 tab PO DAILY [facility] Last Admin: 10/15/17 08:12 Dose: 1 tab Pantoprazole Sodium (Protonix Ec Tab) 40 mg PO DAILY [facility] Last Admin: 10/15/17 08:12 Dose: 40 mg Verapamil HCl (Calan Sr Tab) 240 mg PO DAILY [facility] Last Admin: 10/15/17 08:13 Dose: 240 mg - Labs Labs: 10/15/17 04:30 10/15/17 04:30 PT 11.4 Seconds (9.8-13.1) 10/12/17 12:20 INR 1.0 (0.9-1.2) 10/12/17 12:20 APTT 31.0 Seconds (25.6-37.1) 10/12/17 12:20 - Constitutional Appears: Chronically Ill - Head Exam Head Exam: ATRAUMATIC, NORMAL INSPECTION, NORMOCEPHALIC - Eye Exam Eye Exam: EOMI, Normal appearance, PERRL Pupil Exam: NORMAL ACCOMODATION, PERRL - ENT Exam ENT Exam: Mucous Membranes Moist, Normal Exam - Neck Exam Neck Exam: Full ROM, Normal Inspection. absent: Lymphadenopathy - Respiratory Exam Respiratory Exam: Decreased Breath Sounds, Rales, NORMAL BREATHING PATTERN Additional comments: ON HIGH FLOW O2 - Cardiovascular Exam Cardiovascular Exam: REGULAR RHYTHM, +S1, +S2. absent: Murmur - GI/Abdominal Exam GI & Abdominal Exam: Soft, Normal Bowel Sounds. absent: Tenderness - Rectal Exam Rectal Exam: NORMAL INSPECTION - Extremities Exam Extremities Exam: Full ROM, Normal Capillary Refill, Normal Inspection. absent : Joint Swelling, Pedal Edema - Back Exam Back Exam: NORMAL INSPECTION - Neurological Exam Neurological Exam: Alert, Awake, CN II-XII Intact - Skin Skin Exam: Dry, Intact, Normal Color, Warm Assessment and Plan - Assessment and Plan (Free Text) Assessment: RESPIRATORY FAILURE COPD EXAC CHOLELITHIASIS ASEPTIC NECROSIS OF HIP Plan: CONTINUE PRESENT RX
--- NOTE | 2017-10-15 11:55 | RAD ---
PROCEDURE: CHEST RADIOGRAPH, 1 VIEW HISTORY: PNEUMONIA COMPARISON: Portable chest 10/13/2017. FINDINGS: LUNGS: Diminishing airspace disease seen the left base with a right chest remaining clear. PLEURA: Diminishing left pleural effusion is questioned though this area may better opacified by infiltrate or atelectasis previously. No right pleural effusion. No pneumothorax bilaterally. CARDIOVASCULAR: Prominent cardiac silhouette is again appreciated without pulmonary vascular derangement identified once again. OSSEOUS STRUCTURES: No significant abnormalities. VISUALIZED UPPER ABDOMEN: Normal. OTHER FINDINGS: None. IMPRESSION: Diminishing left basilar airspace disease and possible diminished left pleural effusion. No right-sided infiltrate or pleural effusion once again. Stable prominent cardiac silhouette.
--- NOTE | 2017-10-15 12:00 | CP.PCM.PN ---
Subjective - Date & Time of Evaluation Date of Evaluation: 10/15/17 Time of Evaluation: 12:00 - Subjective Subjective: Patient with at bedside. Much more alert than last exam. At this time, patient first says she is not having any pain. She says when she moves she has pain in her left hip. Patient points to left gluteal area to indicate area of pain. She denies groin pain now or in the past. She denies any recent falls. She denies any known history of fractures in her back. Denies numbness/ tingling. Denies pain in the middle of her back. Review of Systems - Review of Systems All systems: reviewed and no additional remarkable complaints except - Constitutional Additional comments: denies fever/chills - Cardiovascular Cardiovascular: UNREMARKABLE - Respiratory Respiratory: UNREMARKABLE - Gastrointestinal Gastrointestinal: UNREMARKABLE - Musculoskeletal Musculoskeletal: As Par HPI - Neurological Neurological: As Per HPI - Hematologic/Lymphatic Hematologic: UNREMARKABLE Objective - Vital Signs/Intake and Output Vital Signs (last 24 hours): Temp Pulse Resp BP Pulse Ox 97.5 F L 79 18 111/56 L 95 10/15/17 08:02 10/15/17 08:13 10/15/17 08:02 10/15/17 08:13 10/15/17 08:02 Intake and Output: 10/15/17 10/15/17 06:59 18:59 Intake Total 300 Output Total 700 Balance -400 - Medications Medications: Current Medications Acetaminophen (Tylenol 325mg Tab) 650 mg PO Q6 PRN PRN Reason: Pain, Mild (1-3) Acetaminophen/Codeine Phosphate (Tylenol/Codeine 300 Mg/30 Mg) 1 tab PO Q4 PRN PRN Reason: Pain, moderate (4-7) Last Admin: 10/13/17 22:34 Dose: 1 tab Albuterol Sulfate (Albuterol 0.083% Inhal Ro (2.5 Mg/3 Ml) Ud) 2.5 mg IH RQ4 PRN PRN Reason: Shortness of Breath Last Admin: 10/13/17 15:29 Dose: 2.5 mg Albuterol/Ipratropium (Duoneb 3 Mg/0.5 Mg (3 Ml) Ud) 3 ml IH RQ6 [facility] Last Admin: 10/15/17 07:41 Dose: 3 ml Doxazosin Mesylate (Cardura) 8 mg PO DAILY [facility] Last Admin: 10/15/17 08:12 Dose: 8 mg Fluconazole (Diflucan) 100 mg PO DAILY [facility] PRN Reason: Protocol Last Admin: 10/15/17 08:12 Dose: 100 mg Furosemide (Lasix) 20 mg PO DAILY [facility] Last Admin: 10/15/17 08:12 Dose: 20 mg Heparin Sodium (Porcine) (Heparin) 5,000 units SC Q8 [facility] PRN Reason: Protocol Last Admin: 10/15/17 08:14 Dose: 5,000 units Meropenem 500 mg/ Sodium (Chloride) 50 mls @ 50 mls/hr IVPB Q24H [facility] PRN Reason: Protocol Last Admin: 10/14/17 17:46 Dose: 50 mls/hr Piperacillin Sod/Tazobactam (Sod 2.25 gm/ Sodium Chloride) 50 mls @ 50 mls/hr IVPB Q6 [facility] PRN Reason: Protocol Last Admin: 10/15/17 09:08 Dose: 50 mls/hr Insulin Human Regular (Humulin R) 0 units SC ACCU-CHECK [facility] PRN Reason: Protocol Last Admin: 10/15/17 11:54 Dose: 12 units Lidocaine (Lidoderm) 1 ea TD DAILY [facility] Last Admin: 10/15/17 08:15 Dose: 1 ea Methylprednisolone (Solu-Medrol) 40 mg IVP Q12H [facility] Last Admin: 10/15/17 04:25 Dose: 40 mg Montelukast Sodium (Singulair) 10 mg PO HS [facility] Last Admin: 10/14/17 21:30 Dose: Not Given Multivitamins/Minerals (Therapeutic-M Tab) 1 tab PO DAILY [facility] Last Admin: 10/15/17 08:12 Dose: 1 tab Pantoprazole Sodium (Protonix Ec Tab) 40 mg PO DAILY [facility] Last Admin: 10/15/17 08:12 Dose: 40 mg Verapamil HCl (Calan Sr Tab) 240 mg PO DAILY [facility] Last Admin: 10/15/17 08:13 Dose: 240 mg - Labs Labs: 10/15/17 04:30 10/15/17 04:30 PT 11.4 Seconds (9.8-13.1) 10/12/17 12:20 INR 1.0 (0.9-1.2) 10/12/17 12:20 APTT 31.0 Seconds (25.6-37.1) 10/12/17 12:20 - Constitutional Appears: Well, No Acute Distress - Head Exam Head Exam: ATRAUMATIC - Neck Exam Neck Exam: Full ROM, Normal Inspection - Respiratory Exam Respiratory Exam: NORMAL BREATHING PATTERN - Cardiovascular Exam Additional comments: +DP/PT pulses calves soft NT neg homans - Extremities Exam Additional comments: No pain with active or passive ROM B hips, no pain with log roll or axial loading TTP left gluteal area, no tenderness to spinous processes sensation itnact BLE - Neurological Exam Neurological Exam: Alert, Awake Neuro motor strength exam: Left Lower Extremity: 5 (+ROM ankle/toes BLE DF/PF/ great toe ext ), Right Lower Extremity: 5 - Psychiatric Exam Psychiatric exam: Normal Affect, Normal Mood - Skin Skin Exam: Dry, Intact, Normal Color, Warm Assessment and Plan (1) Avascular necrosis of left femoral head Assessment & Plan: Per Dr. Davenport, indicated for THR radiographically However, at this time she does not appear to be symptomatic from her hip DJD/AVN Location of pain is more suspicious as lumbar spine in origin CT abdomen pelvis reviewed from this admission and compared to last CT 05/2017 L1 and L2 compression fractures now evident multilevel spondylosis lumbar spine case discussed with son on phone at request of family. Son is upset that he was not advised of consult. Advised that she is indicated for THR due to DJD and AVN. Son also clarifies that although patient is DNR/DNI they would consider orthopedic surgical intervention in future. THis is change from prior documented conversations. Now that patient is awake and alert and able to give history to me, I do not believe that this is the cause of her current discomfort as she has no groin pain and NO pain with hip range of motion Explained to patient and at bedside that she has fracture of L1 and L2 which is new since May. Advised them that she has DJD of lumbar spine also, and that location of pain may be from lumbar spine. states he will relay findings to son. MRI ordered lumbar spine, unsure of chronicity of lumbar vertebral body fractures, but not present 4 months ago, r/o radiculopathy case d/w resident, recommend spine consultation with neurosurgery Recommend PT/OT/OOB from ortho standpoint for hip DJD no orthopedic intervention planned at this time d/w Dr. Davenport, agrees with above Status: Acute (2) Degenerative joint disease of right hip Status: Acute (3) Degenerative joint disease of left hip Status: Acute
--- NOTE | 2017-10-15 16:23 | CP.PCM.PN ---
Subjective - Date & Time of Evaluation Date of Evaluation: 10/15/17 Time of Evaluation: 11:00 - Subjective Subjective: Patient was seen and examined at bedside. Her breathing is better this morning. She is still on High Flow oxygen today. She denies any pain to either hip even when moving the hip. She is complaining of some back discomfort today. Overall she appears better today. She is much more coherent today. The family was spoken to at length today regarding the patient's case by myself. Patient is DNR/DNI Surrogate decision maker- spouse Néstor Objective - Vital Signs/Intake and Output Vital Signs (last 24 hours): Temp Pulse Resp BP Pulse Ox 97.5 F L 80 20 121/64 94 L 10/15/17 15:37 10/15/17 15:37 10/15/17 15:37 10/15/17 15:37 10/15/17 15:37 Intake and Output: 10/15/17 10/15/17 06:59 18:59 Intake Total 300 Output Total 700 Balance -400 - Medications Medications: Current Medications Acetaminophen (Tylenol 325mg Tab) 650 mg PO Q6 PRN PRN Reason: Pain, Mild (1-3) Acetaminophen/Codeine Phosphate (Tylenol/Codeine 300 Mg/30 Mg) 1 tab PO Q4 PRN PRN Reason: Pain, moderate (4-7) Last Admin: 10/13/17 22:34 Dose: 1 tab Albuterol Sulfate (Albuterol 0.083% Inhal Ro (2.5 Mg/3 Ml) Ud) 2.5 mg IH RQ4 PRN PRN Reason: Shortness of Breath Last Admin: 10/13/17 15:29 Dose: 2.5 mg Albuterol/Ipratropium (Duoneb 3 Mg/0.5 Mg (3 Ml) Ud) 3 ml IH RQ6 [facility] Last Admin: 10/15/17 13:06 Dose: 3 ml Doxazosin Mesylate (Cardura) 8 mg PO DAILY [facility] Last Admin: 10/15/17 08:12 Dose: 8 mg Fluconazole (Diflucan) 100 mg PO DAILY [facility] PRN Reason: Protocol Last Admin: 10/15/17 08:12 Dose: 100 mg Furosemide (Lasix) 20 mg PO DAILY [facility] Last Admin: 10/15/17 08:12 Dose: 20 mg Heparin Sodium (Porcine) (Heparin) 5,000 units SC Q8 [facility] PRN Reason: Protocol Last Admin: 10/15/17 08:14 Dose: 5,000 units Meropenem 500 mg/ Sodium (Chloride) 50 mls @ 50 mls/hr IVPB Q24H [facility] PRN Reason: Protocol Last Admin: 10/14/17 17:46 Dose: 50 mls/hr Piperacillin Sod/Tazobactam (Sod 2.25 gm/ Sodium Chloride) 50 mls @ 50 mls/hr IVPB Q6 [facility] PRN Reason: Protocol Last Admin: 10/15/17 09:08 Dose: 50 mls/hr Insulin Human Regular (Humulin R) 0 units SC ACCU-CHECK [facility] PRN Reason: Protocol Last Admin: 10/15/17 11:54 Dose: 12 units Lidocaine (Lidoderm) 1 ea TD DAILY [facility] Last Admin: 10/15/17 08:15 Dose: 1 ea Methylprednisolone (Solu-Medrol) 40 mg IVP Q12H [facility] Last Admin: 10/15/17 04:25 Dose: 40 mg Montelukast Sodium (Singulair) 10 mg PO HS [facility] Last Admin: 10/14/17 21:30 Dose: Not Given Multivitamins/Minerals (Therapeutic-M Tab) 1 tab PO DAILY [facility] Last Admin: 10/15/17 08:12 Dose: 1 tab Pantoprazole Sodium (Protonix Ec Tab) 40 mg PO DAILY [facility] Last Admin: 10/15/17 08:12 Dose: 40 mg Verapamil HCl (Calan Sr Tab) 240 mg PO DAILY [facility] Last Admin: 10/15/17 08:13 Dose: 240 mg - Labs Labs: 10/15/17 04:30 10/15/17 04:30 PT 11.4 Seconds (9.8-13.1) 10/12/17 12:20 INR 1.0 (0.9-1.2) 10/12/17 12:20 APTT 31.0 Seconds (25.6-37.1) 10/12/17 12:20 - Additional Findings Additional findings: Physical exam: Constitutional- More awake today and coherent. She complains of back pain but denies any hip pain today. Head- NCAT, PERRL Eye- PERRL, normal accommodation ENT- normal exam, MMM. Neck- normal inspection, supple, no JVD Respiratory- Bilateral rales more prominent in the bases. Cardiovascular- RRR, +S1, +S2 no MRG GI/Abdominal- normal bowel sounds, soft, no abdominal tenderness today Skin- warm, dry Extremities Exam- Patient has bilateral kincaid wounds after fall 2 weeks ago, left side healing well, right side slowly healing, wound about 1 x 2 cm in diameter. normal capillary refill. no hip pain to left hip upon movement. Neurological Exam- lethargic, CN II-XII intact Assessment and Plan - Assessment and Plan (Free Text) Plan: 1) Altered mental status, likely multifactorial causes, related to INfection ( acute cholecystitis, fungal UTI, PNA) possible metabolic encephalopathy as well sec to hypercapnia given hx of COPD - AMS improving - cont IV abx for tx of Cholecystitis - Continue Diflucan for tx of fungal UTI - continued on High Flow Oxygen 2. Acute on Chronic Respiratory Failure with Hypoxia and Hypercapnea sec to COPD exacerbation , CHF exacebation and poss Pneumonia- improving -Pt has been dyspneic with rales and wheezing on exam. - CXR : LLF infiltrate vs Atelectasis -ABG : 7.37 61/424/100% on 100-% NRBM - Patient continued on High Flow today- may be able to wean off tomorrow. - Pulm consulted_ discussed case with dr Greene- recommends IV steroids, duonebs - Lasix given 3) avascular necrosis of the hip - Orthopedic consultation with Dr. Davenport - After discussion with the family- they are amenable to orthopedic surgery if it is necessary. This is a change from prevous documentation. - Please see Gen Abrams's note for more details- the patient does not require surgery at this time as per orthopedics. 4) Acute cholecystitis - General surgery consultation with Dr. Mitchell - Patient's family wants conservative management for now - Continue Meropenem and Zosyn - ID consultation with Dr. Sterling- abx regimen as per him 5) Acute kidney injury- - Due to failure to thrive, decreased po intake - minimal improvement with fluids- had to hold further fluid administration due to respiratory distress from fluid overload - Plan to restart gentle hydration if resp status back to baseline. - Avoid nephrotoxic medications if possble - Recheck BMP in AM 6) COPD exacerbation - - IV Solumeddrol 125 mg give, cont 40mg daily - Continue Albuterol - Continue Duoneb - Continue Singulair 7. CAP ( prob bacterial) - CXR : LLL infilt vs atelectasis - pt is on IV Zosyn and Meropenem 8. UTI ? Fungal - pt on Diflucan 9. CHF eacerbation, systolic and diastolic ECHO done last year showed EF 35% cont Lasix Hold ARB due to JADE no BB due to COPD 10. Hypertension - Continue Verapamil with holding parameters - Hold Avapro due to JADE 7) DVT prophylaxis Heparin SQ
[2017-10-15] MEDS: Meropenem 500 MG in Sodium Chloride 0.9% 50 ML IVPB SCH (17:00)
--- NOTE | 2017-10-15 18:08 | MRI ---
PROCEDURE: MR LUMBAR SPINE WITHOUT CONTRAST HISTORY: L1/L2 compression fx, LLE radiculopathy COMPARISON: None available. TECHNIQUE: Multiecho multiplanar sequences were performed through the lumbar spine without the use of intravenous contrast. FINDINGS: Normal lumbar curvature is appreciated with a borderline spondylolisthesis at L3-4. L3 appears borderline anterior L4. Further, a chronic mild compression fracture of L2 is identified and an acute mild compression fracture of L1 is evident with edema affecting the upper and mid portion. Marrow signal is otherwise unremarkable throughout the remainder of the lumbar spine. Conus medullaris terminates at the T12 L1 disc interspace level and is unremarkable as imaged in the upper portion the conus may not be fully captured this exam. Prevertebral and paraspinal soft tissues appear diffusely unremarkable. T12-L1: No disc herniation, spinal canal stenosis or neural foraminal narrowing. L1-2: No disc herniation, spinal canal stenosis or neural foraminal narrowing. L2-3: No disc herniation, spinal canal stenosis or neural foraminal narrowing. L3-4: No disc herniation is appreciated however gross facet joint degenerative changes are appreciated at this level where there is a borderline spondylolisthesis and a moderate central canal stenosis identified due also to the limited spondylolisthesis pattern and disc bulge. No significant neural foraminal stenosis. L4-5: A severe central canal stenosis identified at L4-5 due to gross generalized disc bulging combined with marked facet arthropathy. Borderline bilateral neural foraminal stenoses are encountered. No disc herniation. L5-S1: Asymmetric facet arthropathy encroaches the left greater than right lateral recesses without significant generalized central stenosis. No significant neural foraminal stenosis bilaterally. No disc herniation. OTHER FINDINGS: None. IMPRESSION: 1. Mild anterior compression fracture L1 appears acute. No significant stenosis or retropulsion of fracture fragments is identified. A chronic L2 compression fractures identified, also mild. 2. 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 No spondylolysis is grossly evident. 3. No disc herniation appreciated throughout the examination.
[2017-10-15] MEDS ORDERED: DiphenhydrAMINE 50 mg/ml Inj IVP STA (21:47)
[2017-10-16] MEDS: Albuterol-Ipratrop 3 mg / 0.5 (3 ml) UD IH SCH ×4 (01:06→19:22)
[2017-10-16] MEDS: MethylPREDNISolone 40 mg Vial IVP SCH (04:14)
[2017-10-16 06:12] LABS: HEMATOCRIT 30.9 % (34.0-47.0); MEAN CELL VOLUME 88.1 fl (81.0-99.0); MEAN CORPUSCULAR HEMOGLOBIN 28.4 pg (27.0-31.0); MEAN CORPUSCULAR HGB CONC 32.3 g/dL (33.0-37.0); RED CELL DISTRIBUTION WIDTH 17.5 % (11.5-14.5); WHITE BLOOD COUNT 6.9 K/uL (4.8-10.8)
[2017-10-16 06:49] LABS: CALCIUM 8.6 mg/dL (8.4-10.2); POTASSIUM 3.3 MMOL/L (3.6-5.0)
[2017-10-16] MEDS: Insulin Regular 100 units/ml SC SCH ×4 (07:00→22:21)
--- NOTE | 2017-10-16 07:40 | CP.PCM.PN ---
Subjective - Date & Time of Evaluation Date of Evaluation: 10/16/17 Time of Evaluation: 08:00 - Subjective Subjective: Patient with family at bedside. Advised patient and family that neurosurg consultation is pending and that no orthopedic intervention is indicated. Patient complaining of same left buttock pain when moving around. Objective - Vital Signs/Intake and Output Vital Signs (last 24 hours): Temp Pulse Resp BP Pulse Ox 98.3 F 91 H 20 151/77 H 96 10/16/17 05:46 10/16/17 05:46 10/16/17 06:18 10/16/17 05:46 10/16/17 05:46 Intake and Output: 10/16/17 10/16/17 06:59 18:59 Intake Total 1430 Output Total 1500 Balance -70 - Medications Medications: Current Medications Acetaminophen (Tylenol 325mg Tab) 650 mg PO Q6 PRN PRN Reason: Pain, Mild (1-3) Acetaminophen/Codeine Phosphate (Tylenol/Codeine 300 Mg/30 Mg) 1 tab PO Q4 PRN PRN Reason: Pain, moderate (4-7) Last Admin: 10/13/17 22:34 Dose: 1 tab Albuterol Sulfate (Albuterol 0.083% Inhal Ro (2.5 Mg/3 Ml) Ud) 2.5 mg IH RQ4 PRN PRN Reason: Shortness of Breath Last Admin: 10/13/17 15:29 Dose: 2.5 mg Albuterol/Ipratropium (Duoneb 3 Mg/0.5 Mg (3 Ml) Ud) 3 ml IH RQ6 [facility] Last Admin: 10/16/17 01:06 Dose: 3 ml Doxazosin Mesylate (Cardura) 8 mg PO DAILY [facility] Last Admin: 10/15/17 08:12 Dose: 8 mg Fluconazole (Diflucan) 100 mg PO DAILY [facility] PRN Reason: Protocol Last Admin: 10/15/17 08:12 Dose: 100 mg Furosemide (Lasix) 20 mg PO DAILY [facility] Last Admin: 10/15/17 08:12 Dose: 20 mg Heparin Sodium (Porcine) (Heparin) 5,000 units SC Q8 [facility] PRN Reason: Protocol Last Admin: 10/16/17 00:30 Dose: 5,000 units Meropenem 500 mg/ Sodium (Chloride) 50 mls @ 50 mls/hr IVPB Q24H [facility] PRN Reason: Protocol Last Admin: 10/15/17 17:00 Dose: 50 mls/hr Piperacillin Sod/Tazobactam (Sod 2.25 gm/ Sodium Chloride) 100 mls @ 100 mls/ hr IVPB Q6 [facility] PRN Reason: Protocol Last Admin: 10/16/17 04:14 Dose: 100 mls/hr Insulin Human Regular (Humulin R) 0 units SC ACCU-CHECK [facility] PRN Reason: Protocol Last Admin: 10/16/17 07:00 Dose: 12 units Lidocaine (Lidoderm) 1 ea TD DAILY [facility] Last Admin: 10/15/17 08:15 Dose: 1 ea Methylprednisolone (Solu-Medrol) 40 mg IVP Q12H [facility] Last Admin: 10/16/17 04:14 Dose: 40 mg Montelukast Sodium (Singulair) 10 mg PO HS [facility] Last Admin: 10/15/17 21:24 Dose: 10 mg Multivitamins/Minerals (Therapeutic-M Tab) 1 tab PO DAILY [facility] Last Admin: 10/15/17 08:12 Dose: 1 tab Ondansetron HCl (Zofran Inj) 4 mg IVP Q6 PRN PRN Reason: Nausea/Vomiting Last Admin: 10/15/17 22:38 Dose: 4 mg Pantoprazole Sodium (Protonix Ec Tab) 40 mg PO DAILY [facility] Last Admin: 10/15/17 08:12 Dose: 40 mg Verapamil HCl (Calan Sr Tab) 240 mg PO DAILY [facility] Last Admin: 10/15/17 08:13 Dose: 240 mg - Labs Labs: 10/16/17 05:30 10/16/17 05:30 PT 11.4 Seconds (9.8-13.1) 10/12/17 12:20 INR 1.0 (0.9-1.2) 10/12/17 12:20 APTT 31.0 Seconds (25.6-37.1) 10/12/17 12:20 - Constitutional Appears: Well, No Acute Distress - Head Exam Head Exam: ATRAUMATIC, NORMAL INSPECTION - Respiratory Exam Respiratory Exam: NORMAL BREATHING PATTERN - Extremities Exam Additional comments: no pain with PROM of hips or AROM of hips - Back Exam Back Exam: tenderness (left gluteal area, no spinous process tenderness) - Neurological Exam Neurological Exam: Alert, Awake Neuro motor strength exam: Left Lower Extremity: 5 (sensation intact) - Psychiatric Exam Psychiatric exam: Normal Affect, Normal Mood - Skin Skin Exam: Dry, Intact, Normal Color, Warm Assessment and Plan (1) Avascular necrosis of left femoral head Assessment & Plan: chronic currently asymptomatic recommend PT/OT, f/u as outpatient Dr. Davenport neurosurg consult MRI appreciated VTE proph d/w Dr. Dougherty,agrees with above Status: Chronic (2) Degenerative joint disease of right hip Status: Chronic (3) Degenerative joint disease of left hip Status: Chronic Radiology Interpretation - Radiology Interpretation #2 Interpretation: Patient Name / ID : JAZMYNE ELKINS / [id number] Exam Date : 10/15/2017 17:12:05 ( Approved ) Study Comment : Sex / Age : F / [id number] Creator : Bharathi Whitman MD Dictator : Bharathi Whitman MD Nurse Practitioner Physician Assistant : Environmental Planning Engineer : Bharathi Whitman MD Approver2 : Report Date : 10/15/2017 18:02:41 My Comment : PROCEDURE: MR LUMBAR SPINE WITHOUT CONTRAST HISTORY: L1/L2 compression fx, LLE radiculopathy COMPARISON: None available. TECHNIQUE: Multiecho multiplanar sequences were performed through the lumbar spine without the use of intravenous contrast. FINDINGS: Normal lumbar curvature is appreciated with a borderline spondylolisthesis at L3 -4. L3 appears borderline anterior L4. Further, a chronic mild compression fracture of L2 is identified and an acute mild compression fracture of L1 is evident with edema affecting the upper and mid portion. Marrow signal is otherwise unremarkable throughout the remainder of the lumbar spine. Conus medullaris terminates at the T12 L1 disc interspace level and is unremarkable as imaged in the upper portion the conus may not be fully captured this exam. Prevertebral and paraspinal soft tissues appear diffusely unremarkable. T12-L1: No disc herniation, spinal canal stenosis or neural foraminal narrowing. L1-2: No disc herniation, spinal canal stenosis or neural foraminal narrowing. L2-3: No disc herniation, spinal canal stenosis or neural foraminal narrowing. L3-4: No disc herniation is appreciated however gross facet joint degenerative changes are appreciated at this level where there is a borderline spondylolisthesis and a moderate central canal stenosis identified due also to the limited spondylolisthesis pattern and disc bulge. No significant neural foraminal stenosis. L4-5: A severe central canal stenosis identified at L4-5 due to gross generalized disc bulging combined with marked facet arthropathy. Borderline bilateral neural foraminal stenoses are encountered. No disc herniation. L5-S1: Asymmetric facet arthropathy encroaches the left greater than right lateral recesses without significant generalized central stenosis. No significant neural foraminal stenosis bilaterally. No disc herniation. OTHER FINDINGS: None. IMPRESSION: 1. Mild anterior compression fracture L1 appears acute. No significant stenosis or retropulsion of fracture fragments is identified. A chronic L2 compression fractures identified, also mild. 2. 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 No spondylolysis is grossly evident. 3. No disc herniation appreciated throughout the examination.
[2017-10-16] MEDS: Pantoprazole 40 mg EC Tab PO SCH (08:44)
[2017-10-16] MEDS: Multivitamin With Minerals Tab PO SCH (08:45)
[2017-10-16] MEDS: Verapamil 240 mg ER Tab PO SCH (08:45)
[2017-10-16] MEDS: Lidocaine 5% Patch TD SCH (08:47)
[2017-10-16] MEDS ORDERED: Potassium Chloride 20 mEq/15 ml LIQ UD PO ONE (09:21)
--- NOTE | 2017-10-16 13:31 | CP.PCM.PN ---
Subjective - Date & Time of Evaluation Date of Evaluation: 10/16/17 Time of Evaluation: 13:31 - Subjective Subjective: CLINICALLY IMPROVING SOB LESS AWAKE AND ALERT Objective - Vital Signs/Intake and Output Vital Signs (last 24 hours): Temp Pulse Resp BP Pulse Ox 98.3 F 91 H 18 156/78 H 93 L 10/16/17 12:47 10/16/17 12:47 10/16/17 12:47 10/16/17 12:47 10/16/17 12:47 Intake and Output: 10/16/17 10/16/17 06:59 18:59 Intake Total 1430 Output Total 1500 Balance -70 - Medications Medications: Current Medications Acetaminophen (Tylenol 325mg Tab) 650 mg PO Q6 PRN PRN Reason: Pain, Mild (1-3) Acetaminophen/Codeine Phosphate (Tylenol/Codeine 300 Mg/30 Mg) 1 tab PO Q4 PRN PRN Reason: Pain, moderate (4-7) Last Admin: 10/13/17 22:34 Dose: 1 tab Albuterol Sulfate (Albuterol 0.083% Inhal Ro (2.5 Mg/3 Ml) Ud) 2.5 mg IH RQ4 PRN PRN Reason: Shortness of Breath Last Admin: 10/13/17 15:29 Dose: 2.5 mg Albuterol/Ipratropium (Duoneb 3 Mg/0.5 Mg (3 Ml) Ud) 3 ml IH RQ6 ZIA Last Admin: 10/16/17 08:07 Dose: 3 ml Doxazosin Mesylate (Cardura) 8 mg PO DAILY [facility] Last Admin: 10/16/17 08:46 Dose: 8 mg Fluconazole (Diflucan) 100 mg PO DAILY [facility] PRN Reason: Protocol Last Admin: 10/16/17 08:44 Dose: 100 mg Furosemide (Lasix) 20 mg PO DAILY [facility] Last Admin: 10/16/17 08:45 Dose: 20 mg Heparin Sodium (Porcine) (Heparin) 5,000 units SC Q8 [facility] PRN Reason: Protocol Last Admin: 10/16/17 08:46 Dose: 5,000 units Meropenem 500 mg/ Sodium (Chloride) 50 mls @ 50 mls/hr IVPB Q24H [facility] PRN Reason: Protocol Last Admin: 10/15/17 17:00 Dose: 50 mls/hr Piperacillin Sod/Tazobactam (Sod 2.25 gm/ Sodium Chloride) 100 mls @ 100 mls/ hr IVPB Q6 [facility] PRN Reason: Protocol Last Admin: 10/16/17 09:11 Dose: 100 mls/hr Insulin Human Regular (Humulin R) 0 units SC ACCU-CHECK [facility] PRN Reason: Protocol Last Admin: 10/16/17 11:42 Dose: 12 units Lidocaine (Lidoderm) 1 ea TD DAILY [facility] Last Admin: 10/16/17 08:47 Dose: 1 ea Methylprednisolone (Solu-Medrol) 40 mg IVP Q12H [facility] Last Admin: 10/16/17 04:14 Dose: 40 mg Montelukast Sodium (Singulair) 10 mg PO HS [facility] Last Admin: 10/15/17 21:24 Dose: 10 mg Multivitamins/Minerals (Therapeutic-M Tab) 1 tab PO DAILY [facility] Last Admin: 10/16/17 08:45 Dose: 1 tab Ondansetron HCl (Zofran Inj) 4 mg IVP Q6 PRN PRN Reason: Nausea/Vomiting Last Admin: 10/15/17 22:38 Dose: 4 mg Pantoprazole Sodium (Protonix Ec Tab) 40 mg PO DAILY [facility] Last Admin: 10/16/17 08:44 Dose: 40 mg Verapamil HCl (Calan Sr Tab) 240 mg PO DAILY [facility] Last Admin: 10/16/17 08:45 Dose: 240 mg - Labs Labs: 10/16/17 05:30 10/16/17 05:30 PT 11.4 Seconds (9.8-13.1) 10/12/17 12:20 INR 1.0 (0.9-1.2) 10/12/17 12:20 APTT 31.0 Seconds (25.6-37.1) 10/12/17 12:20 - Constitutional Appears: No Acute Distress - Head Exam Head Exam: ATRAUMATIC, NORMAL INSPECTION, NORMOCEPHALIC - Eye Exam Eye Exam: EOMI, Normal appearance, PERRL Pupil Exam: NORMAL ACCOMODATION, PERRL - ENT Exam ENT Exam: Mucous Membranes Moist, Normal Exam - Neck Exam Neck Exam: Full ROM, Normal Inspection. absent: Lymphadenopathy - Respiratory Exam Respiratory Exam: Prolonged Expiratory Phase, NORMAL BREATHING PATTERN - Cardiovascular Exam Cardiovascular Exam: REGULAR RHYTHM, +S1, +S2. absent: Murmur - GI/Abdominal Exam GI & Abdominal Exam: Soft, Normal Bowel Sounds. absent: Tenderness - Rectal Exam Rectal Exam: NORMAL INSPECTION - Extremities Exam Extremities Exam: Full ROM, Normal Capillary Refill, Normal Inspection. absent : Joint Swelling, Pedal Edema - Back Exam Back Exam: NORMAL INSPECTION - Neurological Exam Neurological Exam: Alert, Awake, CN II-XII Intact, Normal Gait, Oriented x3 - Psychiatric Exam Psychiatric exam: Normal Affect, Normal Mood - Skin Skin Exam: Dry, Intact, Normal Color, Warm Assessment and Plan - Assessment and Plan (Free Text) Assessment: COPD-IMPROVED Plan: TAPER STEROIDS
[2017-10-16] MEDS: Meropenem 500 MG in Sodium Chloride 0.9% 50 ML IVPB SCH (17:38)
--- NOTE | 2017-10-16 18:28 | CP.PCM.PN ---
Subjective - Date & Time of Evaluation Date of Evaluation: 10/16/17 Time of Evaluation: 18:25 - Subjective Subjective: ID NOTE IMPROVING WBC IS WNL ,CULTURES NOTED WILL DC MEROPENEM Objective - Vital Signs/Intake and Output Vital Signs (last 24 hours): Temp Pulse Resp BP Pulse Ox 98.4 F 81 20 130/75 97 10/16/17 16:45 10/16/17 16:45 10/16/17 17:09 10/16/17 16:45 10/16/17 16:45 Intake and Output: 10/16/17 10/16/17 06:59 18:59 Intake Total 1430 Output Total 1500 Balance -70 - Medications Medications: Current Medications Acetaminophen (Tylenol 325mg Tab) 650 mg PO Q6 PRN PRN Reason: Pain, Mild (1-3) Acetaminophen/Codeine Phosphate (Tylenol/Codeine 300 Mg/30 Mg) 1 tab PO Q4 PRN PRN Reason: Pain, moderate (4-7) Last Admin: 10/13/17 22:34 Dose: 1 tab Albuterol Sulfate (Albuterol 0.083% Inhal Ro (2.5 Mg/3 Ml) Ud) 2.5 mg IH RQ4 PRN PRN Reason: Shortness of Breath Last Admin: 10/13/17 15:29 Dose: 2.5 mg Albuterol/Ipratropium (Duoneb 3 Mg/0.5 Mg (3 Ml) Ud) 3 ml IH RQ6 ZIA Last Admin: 10/16/17 13:50 Dose: 3 ml Doxazosin Mesylate (Cardura) 8 mg PO DAILY [facility] Last Admin: 10/16/17 08:46 Dose: 8 mg Fluconazole (Diflucan) 100 mg PO DAILY [facility] PRN Reason: Protocol Last Admin: 10/16/17 08:44 Dose: 100 mg Furosemide (Lasix) 20 mg PO DAILY [facility] Last Admin: 10/16/17 08:45 Dose: 20 mg Heparin Sodium (Porcine) (Heparin) 5,000 units SC Q8 [facility]IA PRN Reason: Protocol Last Admin: 10/16/17 17:33 Dose: 5,000 units Meropenem 500 mg/ Sodium (Chloride) 50 mls @ 50 mls/hr IVPB Q24H [facility] PRN Reason: Protocol Last Admin: 10/16/17 17:38 Dose: 50 mls/hr Piperacillin Sod/Tazobactam (Sod 2.25 gm/ Sodium Chloride) 100 mls @ 100 mls/ hr IVPB Q6 [facility]IA PRN Reason: Protocol Last Admin: 10/16/17 16:30 Dose: 100 mls/hr Insulin Human Regular (Humulin R) 0 units SC ACCU-CHECK [facility]IA PRN Reason: Protocol Last Admin: 10/16/17 17:30 Dose: 6 units Lidocaine (Lidoderm) 1 ea TD DAILY [facility] Last Admin: 10/16/17 08:47 Dose: 1 ea Methylprednisolone (Solu-Medrol) 40 mg IVP DAILY [facility] Montelukast Sodium (Singulair) 10 mg PO HS [facility] Last Admin: 10/15/17 21:24 Dose: 10 mg Multivitamins/Minerals (Therapeutic-M Tab) 1 tab PO DAILY [facility] Last Admin: 10/16/17 08:45 Dose: 1 tab Ondansetron HCl (Zofran Inj) 4 mg IVP Q6 PRN PRN Reason: Nausea/Vomiting Last Admin: 10/15/17 22:38 Dose: 4 mg Pantoprazole Sodium (Protonix Ec Tab) 40 mg PO DAILY [facility] Last Admin: 10/16/17 08:44 Dose: 40 mg Verapamil HCl (Calan Sr Tab) 240 mg PO DAILY [facility] Last Admin: 10/16/17 08:45 Dose: 240 mg - Labs Labs: 10/16/17 05:30 10/16/17 05:30 PT 11.4 Seconds (9.8-13.1) 10/12/17 12:20 INR 1.0 (0.9-1.2) 10/12/17 12:20 APTT 31.0 Seconds (25.6-37.1) 10/12/17 12:20
--- NOTE | 2017-10-16 18:39 | CP.PCM.PN ---
Subjective - Date & Time of Evaluation Date of Evaluation: 10/16/17 Time of Evaluation: 11:30 - Subjective Subjective: Patient was seen and evaluated bedside. Elderly female sitting in bed on high flow oxygen via NC 20 LPM FIO2 40 % feels a little better but still with some baseline SOB. Denies any abdominal pain , back pain or hip pain at rest but states that feels pain to her back if she tries to move around.As per patient she fell twice at home recently she is not ambulating at home. No acute issues overnight Objective - Vital Signs/Intake and Output Vital Signs (last 24 hours): Temp Pulse Resp BP Pulse Ox 98.4 F 81 20 130/75 97 10/16/17 16:45 10/16/17 16:45 10/16/17 17:09 10/16/17 16:45 10/16/17 16:45 Intake and Output: 10/16/17 10/16/17 06:59 18:59 Intake Total 1430 Output Total 1500 Balance -70 - Medications Medications: Current Medications Acetaminophen (Tylenol 325mg Tab) 650 mg PO Q6 PRN PRN Reason: Pain, Mild (1-3) Acetaminophen/Codeine Phosphate (Tylenol/Codeine 300 Mg/30 Mg) 1 tab PO Q4 PRN PRN Reason: Pain, moderate (4-7) Last Admin: 10/13/17 22:34 Dose: 1 tab Albuterol Sulfate (Albuterol 0.083% Inhal Ro (2.5 Mg/3 Ml) Ud) 2.5 mg IH RQ4 PRN PRN Reason: Shortness of Breath Last Admin: 10/13/17 15:29 Dose: 2.5 mg Albuterol/Ipratropium (Duoneb 3 Mg/0.5 Mg (3 Ml) Ud) 3 ml IH RQ6 ZIA Last Admin: 10/16/17 13:50 Dose: 3 ml Doxazosin Mesylate (Cardura) 8 mg PO DAILY [facility] Last Admin: 10/16/17 08:46 Dose: 8 mg Fluconazole (Diflucan) 100 mg PO DAILY [facility] PRN Reason: Protocol Last Admin: 10/16/17 08:44 Dose: 100 mg Furosemide (Lasix) 20 mg PO DAILY [facility] Last Admin: 10/16/17 08:45 Dose: 20 mg Heparin Sodium (Porcine) (Heparin) 5,000 units SC Q8 [facility] PRN Reason: Protocol Last Admin: 10/16/17 17:33 Dose: 5,000 units Piperacillin Sod/Tazobactam (Sod 2.25 gm/ Sodium Chloride) 100 mls @ 100 mls/ hr IVPB Q6 [facility] PRN Reason: Protocol Last Admin: 10/16/17 16:30 Dose: 100 mls/hr Insulin Human Regular (Humulin R) 0 units SC ACCU-CHECK [facility] PRN Reason: Protocol Last Admin: 10/16/17 17:30 Dose: 6 units Lidocaine (Lidoderm) 1 ea TD DAILY [facility] Last Admin: 10/16/17 08:47 Dose: 1 ea Methylprednisolone (Solu-Medrol) 40 mg IVP DAILY [facility] Montelukast Sodium (Singulair) 10 mg PO HS [facility] Last Admin: 10/15/17 21:24 Dose: 10 mg Multivitamins/Minerals (Therapeutic-M Tab) 1 tab PO DAILY [facility] Last Admin: 10/16/17 08:45 Dose: 1 tab Ondansetron HCl (Zofran Inj) 4 mg IVP Q6 PRN PRN Reason: Nausea/Vomiting Last Admin: 10/15/17 22:38 Dose: 4 mg Pantoprazole Sodium (Protonix Ec Tab) 40 mg PO DAILY [facility] Last Admin: 10/16/17 08:44 Dose: 40 mg Verapamil HCl (Calan Sr Tab) 240 mg PO DAILY [facility] Last Admin: 10/16/17 08:45 Dose: 240 mg - Labs Labs: 10/16/17 05:30 10/16/17 05:30 PT 11.4 Seconds (9.8-13.1) 10/12/17 12:20 INR 1.0 (0.9-1.2) 10/12/17 12:20 APTT 31.0 Seconds (25.6-37.1) 10/12/17 12:20 - Constitutional Appears: No Acute Distress, Chronically Ill, Other (mild respiratory distress on high flow O2 via NC ) - Head Exam Head Exam: ATRAUMATIC, NORMOCEPHALIC - Eye Exam Eye Exam: EOMI, PERRL Pupil Exam: NORMAL ACCOMODATION - ENT Exam ENT Exam: Mucous Membranes Moist, Normal Exam - Neck Exam Neck Exam: Full ROM, Normal Inspection - Respiratory Exam Respiratory Exam: Prolonged Expiratory Phase, Rhonchi, Respiratory Distress. absent: Wheezes - Cardiovascular Exam Cardiovascular Exam: REGULAR RHYTHM, RRR. absent: JVD - GI/Abdominal Exam GI & Abdominal Exam: Soft, Normal Bowel Sounds. absent: Distended, Guarding, Tenderness, Rebound - Rectal Exam Rectal Exam: Deferred - Extremities Exam Extremities Exam: Normal Inspection. absent: Pedal Edema - Neurological Exam Neurological Exam: Alert, Awake, CN II-XII Intact, Oriented x3 - Psychiatric Exam Psychiatric exam: Flat Affect - Skin Skin Exam: Dry, Pallor, Warm Assessment and Plan - Assessment and Plan (Free Text) Assessment: 82 year old female with a past medical history significant for COPD on home oxygen, essential hypertension, Type 2 diabetes mellitus controlled with insulin , history of CHF, anxiety, depression, with admission to [facility] in May with acute cholecystitis came to ER with AMS , more lethargic , poor po intake and bilateral hip pain .in May patient and family opted for conservative management for acute cholecystitis due to multiple comorbidities. She improved with antibiotics and IV fluids. 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 and CT of abdomen this admission showed again 1. Redemonstration of distended gallbladder, small gallstones, diffuse gall bladder wall thickening and irregularity and questionable small pericholecystic in the region of the fundus. Findings may represent acute calculus cholecystitis in the appropriate clinical setting. 2. Left colonic diverticulosis without CT evidence for acute diverticulitis. Patient states that she fell recently 1. Bilateral hip pain Ct hip showed possible avascular necrosis of the left hip Orthopedic consultation with Dr. Davenport appreciated Due to patient's condition. comorbidities she is very high risk for any surgical intervention . She is not a candidate for surgery at this time . There is no acute fractures or dislocations seen on CT MRI spine showed : Mild anterior compression fracture L1 appears acute. No significant stenosis or retropulsion of fracture fragments is identified. A chronic L2 compression fractures identified, also mild. 2. 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 No spondylolysis is grossly evident. 3. No disc herniation appreciated throughout the examination. 1. 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 Also noted is moderate degenerative osteoarthro Please see Gen Abrams's note for more details- the patient does not require surgery at this time as per orthopedics. continue pain management , PT 2. Altered mental status-improved likely multifactorial causes, related to Infection (acute cholecystitis, fungal UTI, PNA? ) possible metabolic encephalopathy as well sec to hypercapnia given hx of COPD cont IV abx for tx of Cholecystitis Diflucan for tx of fungal UTI on High Flow Oxygen 3. Acute on Chronic Respiratory Failure with Hypoxia and Hypercapnea sec to COPD exacerbation , CHF exacebation and poss Pneumonia patient is on home oxygen CXR showed LLF infiltrate vs Atelectasis on high Flow O2 vi anC FIo2 40 % pulmonary on consult tapered steroids lasix given 4.Acute on chronic cholecystitis General surgery consultation with Dr. Mitchell appreciated Patient's family wants conservative management for now Continue Zosyn and D/c Meropenem as per ID ID consultation with Dr. Sterling appreciated 5. Acute kidney injury Due to failure to thrive, decreased po intake improved with fluids Cr from 2.2 -- 1.1 Avoid nephrotoxic medications if possble 6. COPD exacerbation tapered steroids continue Duonebs patient is on home oxygen pulmonary on consult can try to wean off high flow 7.? Suspected CAP ( prob bacterial) CXR : LLL infilt vs atelectasis pt is on IV Zosyn meropenem discontinued 8. UTI ? Fungal on Diflucan 9. CHF eacerbation, systolic and diastolic ECHO done last year showed EF 35% cont Lasix Hold ARB due to JADE no BB due to COPD 10. Hypertension Continue Verapamil with holding parameters Hold Avapro due to JADE 11. DM uncontrolled start levemir 10 unit SQ bedside continue accuchecks , insulin coverage diabetic diet Check Hgb A1c 12. DVT prophylaxis Heparin SQ 13. Anemia of chronic disease stable, Hgb 10 14. Hypokalemia possibly diuretic induced replace with KCl Po 15. Anxiety/ depression on trazodone and temazepam at home
[2017-10-16] MEDS: Insulin Detemir 100 Units/ml Inj SC SCH (22:22)
[2017-10-17] MEDS: Albuterol-Ipratrop 3 mg / 0.5 (3 ml) UD IH SCH ×4 (01:38→19:24)
[2017-10-17] MEDS: Insulin Regular 100 units/ml SC SCH ×4 (07:02→22:39)
[2017-10-17 07:40] LABS: HEMATOCRIT 30.1 % (34.0-47.0); MEAN CORPUSCULAR HEMOGLOBIN 28.5 pg (27.0-31.0); MEAN CORPUSCULAR HGB CONC 32.4 g/dL (33.0-37.0); RED CELL DISTRIBUTION WIDTH 17.2 % (11.5-14.5); WHITE BLOOD COUNT 7.9 K/uL (4.8-10.8)
[2017-10-17 07:50] LABS: CALCIUM 8.7 mg/dL (8.4-10.2); POTASSIUM 2.9 MMOL/L (3.6-5.0)
[2017-10-17] MEDS: Multivitamin With Minerals Tab PO SCH (08:42)
[2017-10-17] MEDS: Pantoprazole 40 mg EC Tab PO SCH (08:42)
[2017-10-17] MEDS: Verapamil 240 mg ER Tab PO SCH (08:42)
[2017-10-17] MEDS: Lidocaine 5% Patch TD SCH (08:43)
[2017-10-17] MEDS: MethylPREDNISolone 40 mg Vial IVP SCH (08:44)
[2017-10-17] MEDS ORDERED: Potassium Chloride 20 mEq ER Tab PO ONE (09:45)
--- NOTE | 2017-10-17 10:06 | CP.PCM.PN ---
Subjective - Date & Time of Evaluation Date of Evaluation: 10/17/17 Time of Evaluation: 08:00 - Subjective Subjective: The patient was seen and examined at bedside. She states that she feels better today. She is denying any hip pain bilaterally or any back pain at rest. She is also denying any abdominal pain today. She is asking for sleeping pill which will be provided. She remains on high flow oxygen. Patient is DNR/DNI Surrogate decision maker- spouse Néstor Objective - Vital Signs/Intake and Output Vital Signs (last 24 hours): Temp Pulse Resp BP Pulse Ox 98.2 F 89 18 158/83 H 94 L 10/17/17 08:20 10/17/17 08:42 10/17/17 08:20 10/17/17 08:42 10/17/17 08:20 Intake and Output: 10/17/17 10/17/17 06:59 18:59 Intake Total 440 Output Total 850 Balance -410 - Medications Medications: Current Medications Acetaminophen (Tylenol 325mg Tab) 650 mg PO Q6 PRN PRN Reason: Pain, Mild (1-3) Acetaminophen/Codeine Phosphate (Tylenol/Codeine 300 Mg/30 Mg) 1 tab PO Q4 PRN PRN Reason: Pain, moderate (4-7) Last Admin: 10/13/17 22:34 Dose: 1 tab Albuterol Sulfate (Albuterol 0.083% Inhal Ro (2.5 Mg/3 Ml) Ud) 2.5 mg IH RQ4 PRN PRN Reason: Shortness of Breath Last Admin: 10/13/17 15:29 Dose: 2.5 mg Albuterol/Ipratropium (Duoneb 3 Mg/0.5 Mg (3 Ml) Ud) 3 ml IH RQ6 [facility] Last Admin: 10/17/17 07:50 Dose: 3 ml Doxazosin Mesylate (Cardura) 8 mg PO DAILY [facility] Last Admin: 10/17/17 08:43 Dose: 8 mg Fluconazole (Diflucan) 100 mg PO DAILY [facility] PRN Reason: Protocol Last Admin: 10/17/17 08:42 Dose: 100 mg Furosemide (Lasix) 20 mg PO DAILY [facility] Last Admin: 10/17/17 08:42 Dose: 20 mg Heparin Sodium (Porcine) (Heparin) 5,000 units SC Q8 [facility] PRN Reason: Protocol Last Admin: 10/17/17 08:40 Dose: 5,000 units Piperacillin Sod/Tazobactam (Sod 2.25 gm/ Sodium Chloride) 100 mls @ 100 mls/ hr IVPB Q6 [facility] PRN Reason: Protocol Last Admin: 10/17/17 09:19 Dose: 100 mls/hr Insulin Detemir (Levemir) 10 units SC HS [facility] Last Admin: 10/16/17 22:22 Dose: 10 units Insulin Human Regular (Humulin R) 0 units SC ACCU-CHECK [facility] PRN Reason: Protocol Last Admin: 10/17/17 07:02 Dose: 4 units Lactulose (Enulose) 20 gm PO BID PRN PRN Reason: Constipation Lidocaine (Lidoderm) 1 ea TD DAILY [facility] Last Admin: 10/17/17 08:43 Dose: 1 ea Methylprednisolone (Solu-Medrol) 40 mg IVP DAILY [facility] Last Admin: 10/17/17 08:44 Dose: 40 mg Montelukast Sodium (Singulair) 10 mg PO HS [facility] Last Admin: 10/16/17 21:30 Dose: 10 mg Multivitamins/Minerals (Therapeutic-M Tab) 1 tab PO DAILY [facility] Last Admin: 10/17/17 08:42 Dose: 1 tab Ondansetron HCl (Zofran Inj) 4 mg IVP Q6 PRN PRN Reason: Nausea/Vomiting Last Admin: 10/16/17 23:30 Dose: 4 mg Pantoprazole Sodium (Protonix Ec Tab) 40 mg PO DAILY [facility] Last Admin: 10/17/17 08:42 Dose: 40 mg Temazepam (Restoril) 15 mg PO HS PRN PRN Reason: Insomnia Verapamil HCl (Calan Sr Tab) 240 mg PO DAILY [facility] Last Admin: 10/17/17 08:42 Dose: 240 mg - Labs Labs: 10/17/17 05:30 10/17/17 05:30 PT 11.4 Seconds (9.8-13.1) 10/12/17 12:20 INR 1.0 (0.9-1.2) 10/12/17 12:20 APTT 31.0 Seconds (25.6-37.1) 10/12/17 12:20 - Additional Findings Additional findings: Physical exam: Constitutional- Awake, alert, coherent, responding appropriately to questions. Head- NCAT, PERRL Eye- PERRL, normal accommodation ENT- normal exam, MMM. Neck- normal inspection, supple, no JVD Respiratory- Prolonged expiratory phase, rhonchi (improved). No wheezing today. Cardiovascular- RRR, +S1, +S2 no MRG GI/Abdominal- normal bowel sounds, soft, no abdominal tenderness today Skin- warm, dry Extremities Exam- Patient has bilateral kincaid wounds after fall 2 weeks ago, left side healing well, right side slowly healing, wound about 1 x 2 cm in diameter. normal capillary refill. no hip pain to left hip upon movement. Neurological Exam- lethargic, CN II-XII intact Assessment and Plan - Assessment and Plan (Free Text) Plan: Assessment: 82 year old female with a past medical history significant for COPD on home oxygen, essential hypertension, Type 2 diabetes mellitus controlled with insulin , history of CHF, anxiety, depression, with admission to [facility] in May with acute cholecystitis came to ER with AMS , more lethargic , poor po intake and bilateral hip pain .in May patient and family opted for conservative management for acute cholecystitis due to multiple comorbidities. She improved with antibiotics and IV fluids. 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 and CT of abdomen this admission showed again 1. Redemonstration of distended gallbladder, small gallstones, diffuse gall bladder wall thickening and irregularity and questionable small pericholecystic in the region of the fundus. Findings may represent acute calculus cholecystitis in the appropriate clinical setting. 2. Left colonic diverticulosis without CT evidence for acute diverticulitis. Patient states that she fell recently 1. Bilateral hip pain Ct hip showed possible avascular necrosis of the left hip Orthopedic consultation with Dr. Davenport appreciated Due to patient's condition. comorbidities she is very high risk for any surgical intervention . She is not a candidate for surgery at this time . There is no acute fractures or dislocations seen on CT MRI spine showed : Mild anterior compression fracture L1 appears acute. No significant stenosis or retropulsion of fracture fragments is identified. A chronic L2 compression fractures identified, also mild. 2. 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 No spondylolysis is grossly evident. 3. No disc herniation appreciated throughout the examination. 1. 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 Also noted is moderate degenerative osteoarthro Please see Gen Abrams's note for more details- the patient does not require surgery at this time as per orthopedics. continue pain management , PT 2. Altered mental status-resolved likely multifactorial causes, related to Infection (acute cholecystitis, fungal UTI, PNA? ) possible metabolic encephalopathy as well sec to hypercapnia given hx of COPD cont IV abx for tx of Cholecystitis Diflucan for tx of fungal UTI on High Flow Oxygen 3. Acute on Chronic Respiratory Failure with Hypoxia and Hypercapnea sec to COPD exacerbation , CHF exacebation and poss Pneumonia patient is on home oxygen CXR showed LLF infiltrate vs Atelectasis on high Flow O2 vi anC FIo2 40 % CO2 increased today, 34--> 41. Will correct lytes and continue to monitor. pulmonary on consult tapered steroids lasix given 4.Acute on chronic cholecystitis General surgery consultation with Dr. Mitchell appreciated Patient's family wants conservative management for now Continue Zosyn and D/c Meropenem as per ID ID consultation with Dr. Sterling appreciated BCX shows 1 positive culture with gram positive bacilli 5. Acute kidney injury Due to failure to thrive, decreased po intake improved with fluids Cr from 2.2 -- 1.1 Avoid nephrotoxic medications if possble BUN continuing to improve as well, 64 -> 58 today 6. COPD exacerbation tapered steroids continue Duonebs patient is on home oxygen pulmonary on consult keep High flow on today as patient is more hypercapneic today 7.? Suspected CAP ( prob bacterial) CXR : LLL infilt vs atelectasis pt is on IV Zosyn meropenem discontinued 8. UTI ? Fungal on Diflucan 9. CHF exacerbation, systolic and diastolic ECHO done last year showed EF 35% cont Lasix Hold ARB due to JADE no BB due to COPD 10. Hypertension Continue Verapamil with holding parameters Hold Avapro due to JADE 11. DM uncontrolled, likely due to steroids start levemir 10 unit SQ bedside continue accuchecks , insulin coverage diabetic diet Check Hgb A1c 12. DVT prophylaxis Heparin SQ 13. Anemia of chronic disease stable, Hgb 10 14. Hypokalemia possibly diuretic induced replace with KCl Po 15. Anxiety/ depression on trazodone and temazepam at home
--- NOTE | 2017-10-17 11:41 | CP.PCM.PN ---
Subjective - Date & Time of Evaluation Date of Evaluation: 10/17/17 Time of Evaluation: 11:25 - Subjective Subjective: S- pt much more comfortable today/encounter in prescence of her Objective - Vital Signs/Intake and Output Vital Signs (last 24 hours): Temp Pulse Resp BP Pulse Ox 98.2 F 89 18 158/83 H 94 L 10/17/17 08:20 10/17/17 08:42 10/17/17 08:20 10/17/17 08:42 10/17/17 08:20 Intake and Output: 10/17/17 10/17/17 06:59 18:59 Intake Total 440 Output Total 850 Balance -410 - Medications Medications: Current Medications Acetaminophen (Tylenol 325mg Tab) 650 mg PO Q6 PRN PRN Reason: Pain, Mild (1-3) Acetaminophen/Codeine Phosphate (Tylenol/Codeine 300 Mg/30 Mg) 1 tab PO Q4 PRN PRN Reason: Pain, moderate (4-7) Last Admin: 10/13/17 22:34 Dose: 1 tab Albuterol Sulfate (Albuterol 0.083% Inhal Ro (2.5 Mg/3 Ml) Ud) 2.5 mg IH RQ4 PRN PRN Reason: Shortness of Breath Last Admin: 10/13/17 15:29 Dose: 2.5 mg Albuterol/Ipratropium (Duoneb 3 Mg/0.5 Mg (3 Ml) Ud) 3 ml IH RQ6 [facility] Last Admin: 10/17/17 07:50 Dose: 3 ml Doxazosin Mesylate (Cardura) 8 mg PO DAILY [facility] Last Admin: 10/17/17 08:43 Dose: 8 mg Fluconazole (Diflucan) 100 mg PO DAILY [facility] PRN Reason: Protocol Last Admin: 10/17/17 08:42 Dose: 100 mg Furosemide (Lasix) 20 mg PO DAILY [facility] Last Admin: 10/17/17 08:42 Dose: 20 mg Heparin Sodium (Porcine) (Heparin) 5,000 units SC Q8 [facility] PRN Reason: Protocol Last Admin: 10/17/17 08:40 Dose: 5,000 units Piperacillin Sod/Tazobactam (Sod 2.25 gm/ Sodium Chloride) 100 mls @ 100 mls/ hr IVPB Q6 [facility] PRN Reason: Protocol Last Admin: 10/17/17 09:19 Dose: 100 mls/hr Insulin Detemir (Levemir) 10 units SC HS [facility] Last Admin: 10/16/17 22:22 Dose: 10 units Insulin Human Regular (Humulin R) 0 units SC ACCU-CHECK [facility] PRN Reason: Protocol Last Admin: 10/17/17 07:02 Dose: 4 units Lactulose (Enulose) 20 gm PO BID PRN PRN Reason: Constipation Lidocaine (Lidoderm) 1 ea TD DAILY [facility] Last Admin: 10/17/17 08:43 Dose: 1 ea Methylprednisolone (Solu-Medrol) 40 mg IVP DAILY [facility] Last Admin: 10/17/17 08:44 Dose: 40 mg Montelukast Sodium (Singulair) 10 mg PO HS [facility] Last Admin: 10/16/17 21:30 Dose: 10 mg Multivitamins/Minerals (Therapeutic-M Tab) 1 tab PO DAILY [facility] Last Admin: 10/17/17 08:42 Dose: 1 tab Ondansetron HCl (Zofran Inj) 4 mg IVP Q6 PRN PRN Reason: Nausea/Vomiting Last Admin: 10/16/17 23:30 Dose: 4 mg Pantoprazole Sodium (Protonix Ec Tab) 40 mg PO DAILY [facility] Last Admin: 10/17/17 08:42 Dose: 40 mg Temazepam (Restoril) 15 mg PO HS PRN PRN Reason: Insomnia Verapamil HCl (Calan Sr Tab) 240 mg PO DAILY [facility] Last Admin: 10/17/17 08:42 Dose: 240 mg - Labs Labs: 10/17/17 05:30 10/17/17 05:30 PT 11.4 Seconds (9.8-13.1) 10/12/17 12:20 INR 1.0 (0.9-1.2) 10/12/17 12:20 APTT 31.0 Seconds (25.6-37.1) 10/12/17 12:20 - Additional Findings Additional findings: O/E sytemic - wnl Musculoskekeltal stance/gait- defrred ' L hio ROM - still restricted L/Ss[pione rom still restricted no progressive neuro defiicts SL:R- restricted Assessment and Plan - Assessment and Plan (Free Text) Assessment: A- Lumbar compression fx L1 primary DJD L hip ( R/O avn) P- suggest lumbar brace
--- NOTE | 2017-10-17 11:45 | CP.PCM.PN ---
Subjective - Date & Time of Evaluation Date of Evaluation: 10/17/17 Time of Evaluation: 11:46 - Subjective Subjective: AWAKE/ALERT AND ORIENTED SOB IMPROVED NO CHEST PAINS Objective - Vital Signs/Intake and Output Vital Signs (last 24 hours): Temp Pulse Resp BP Pulse Ox 98.2 F 89 18 158/83 H 94 L 10/17/17 08:20 10/17/17 08:42 10/17/17 08:20 10/17/17 08:42 10/17/17 08:20 Intake and Output: 10/17/17 10/17/17 06:59 18:59 Intake Total 440 Output Total 850 Balance -410 - Medications Medications: Current Medications Acetaminophen (Tylenol 325mg Tab) 650 mg PO Q6 PRN PRN Reason: Pain, Mild (1-3) Acetaminophen/Codeine Phosphate (Tylenol/Codeine 300 Mg/30 Mg) 1 tab PO Q4 PRN PRN Reason: Pain, moderate (4-7) Last Admin: 10/13/17 22:34 Dose: 1 tab Albuterol Sulfate (Albuterol 0.083% Inhal Ro (2.5 Mg/3 Ml) Ud) 2.5 mg IH RQ4 PRN PRN Reason: Shortness of Breath Last Admin: 10/13/17 15:29 Dose: 2.5 mg Albuterol/Ipratropium (Duoneb 3 Mg/0.5 Mg (3 Ml) Ud) 3 ml IH RQ6 [facility] Last Admin: 10/17/17 07:50 Dose: 3 ml Doxazosin Mesylate (Cardura) 8 mg PO DAILY [facility] Last Admin: 10/17/17 08:43 Dose: 8 mg Fluconazole (Diflucan) 100 mg PO DAILY [facility] PRN Reason: Protocol Last Admin: 10/17/17 08:42 Dose: 100 mg Furosemide (Lasix) 20 mg PO DAILY [facility] Last Admin: 10/17/17 08:42 Dose: 20 mg Heparin Sodium (Porcine) (Heparin) 5,000 units SC Q8 [facility] PRN Reason: Protocol Last Admin: 10/17/17 08:40 Dose: 5,000 units Piperacillin Sod/Tazobactam (Sod 2.25 gm/ Sodium Chloride) 100 mls @ 100 mls/ hr IVPB Q6 [facility] PRN Reason: Protocol Last Admin: 10/17/17 09:19 Dose: 100 mls/hr Insulin Detemir (Levemir) 10 units SC HS [facility] Last Admin: 10/16/17 22:22 Dose: 10 units Insulin Human Regular (Humulin R) 0 units SC ACCU-CHECK [facility] PRN Reason: Protocol Last Admin: 10/17/17 07:02 Dose: 4 units Lactulose (Enulose) 20 gm PO BID PRN PRN Reason: Constipation Lidocaine (Lidoderm) 1 ea TD DAILY [facility] Last Admin: 10/17/17 08:43 Dose: 1 ea Methylprednisolone (Solu-Medrol) 40 mg IVP DAILY [facility] Last Admin: 10/17/17 08:44 Dose: 40 mg Montelukast Sodium (Singulair) 10 mg PO HS [facility] Last Admin: 10/16/17 21:30 Dose: 10 mg Multivitamins/Minerals (Therapeutic-M Tab) 1 tab PO DAILY [facility] Last Admin: 10/17/17 08:42 Dose: 1 tab Ondansetron HCl (Zofran Inj) 4 mg IVP Q6 PRN PRN Reason: Nausea/Vomiting Last Admin: 10/16/17 23:30 Dose: 4 mg Pantoprazole Sodium (Protonix Ec Tab) 40 mg PO DAILY [facility] Last Admin: 10/17/17 08:42 Dose: 40 mg Temazepam (Restoril) 15 mg PO HS PRN PRN Reason: Insomnia Verapamil HCl (Calan Sr Tab) 240 mg PO DAILY [facility] Last Admin: 10/17/17 08:42 Dose: 240 mg - Labs Labs: 10/17/17 05:30 10/17/17 05:30 PT 11.4 Seconds (9.8-13.1) 10/12/17 12:20 INR 1.0 (0.9-1.2) 10/12/17 12:20 APTT 31.0 Seconds (25.6-37.1) 10/12/17 12:20 - Constitutional Appears: No Acute Distress - Head Exam Head Exam: ATRAUMATIC, NORMAL INSPECTION, NORMOCEPHALIC - Eye Exam Eye Exam: EOMI, Normal appearance, PERRL Pupil Exam: NORMAL ACCOMODATION, PERRL - ENT Exam ENT Exam: Mucous Membranes Moist, Normal Exam - Neck Exam Neck Exam: Full ROM, Normal Inspection. absent: Lymphadenopathy - Respiratory Exam Respiratory Exam: Prolonged Expiratory Phase, Rales, NORMAL BREATHING PATTERN - Cardiovascular Exam Cardiovascular Exam: REGULAR RHYTHM, +S1, +S2. absent: Murmur - GI/Abdominal Exam GI & Abdominal Exam: Soft, Normal Bowel Sounds. absent: Tenderness - Rectal Exam Rectal Exam: NORMAL INSPECTION - Extremities Exam Extremities Exam: Full ROM, Normal Capillary Refill, Normal Inspection. absent : Joint Swelling, Pedal Edema - Back Exam Back Exam: NORMAL INSPECTION - Neurological Exam Neurological Exam: Alert, Awake, CN II-XII Intact, Normal Gait, Oriented x3 - Psychiatric Exam Psychiatric exam: Normal Affect, Normal Mood - Skin Skin Exam: Dry, Intact, Normal Color, Warm Assessment and Plan - Assessment and Plan (Free Text) Assessment: RESPIRATORY FAILURE IMPROVED Plan: CONTINUE PRESENT RX WEAN OFF HIGH FLOW O2
[2017-10-17] MEDS: Piperacillin/Tazobact 2.25 GM in Sodium Chloride 0.9% 50 ML IVPB SCH ×2 (16:25→21:24)
[2017-10-17] MEDS: Insulin Detemir 100 Units/ml Inj SC SCH (21:22)
[2017-10-18] MEDS: Acetaminophen-Codeine 300/30 mg Tab PO PRN (00:27)
[2017-10-18] MEDS: Albuterol-Ipratrop 3 mg / 0.5 (3 ml) UD IH SCH ×4 (01:00→19:44)
[2017-10-18] MEDS: Piperacillin/Tazobact 2.25 GM in Sodium Chloride 0.9% 50 ML IVPB SCH ×4 (04:30→21:23)
[2017-10-18] MEDS: Insulin Regular 100 units/ml SC SCH ×4 (07:07→22:09)
[2017-10-18 07:49] LABS: HEMATOCRIT 32.5 % (34.0-47.0); MEAN CELL VOLUME 88.1 fl (81.0-99.0); MEAN CORPUSCULAR HEMOGLOBIN 28.3 pg (27.0-31.0); MEAN CORPUSCULAR HGB CONC 32.1 g/dL (33.0-37.0); RED CELL DISTRIBUTION WIDTH 16.9 % (11.5-14.5)
[2017-10-18 08:04] LABS: BLOOD UREA NITROGEN 49 mg/dl (7-17); CALCIUM 9.1 mg/dL (8.4-10.2); CHLORIDE 94 mmol/L (98-107); GFR AFRICAN-AMERICAN > 60; GLUCOSE,RANDOM 156 mg/dL (65-105); MAGNESIUM 1.9 MG/DL (1.6-2.3); SODIUM 144 mmol/l (132-148)
[2017-10-18 08:10] LABS: CARBON DIOXIDE 45 mmol/L (22-30)
[2017-10-18] MEDS: Lidocaine 5% Patch TD SCH (08:54)
[2017-10-18] MEDS: Pantoprazole 40 mg EC Tab PO SCH (08:56)
[2017-10-18] MEDS: MethylPREDNISolone 40 mg Vial IVP SCH (08:57)
[2017-10-18] MEDS: Verapamil 240 mg ER Tab PO SCH (08:57)
[2017-10-18] MEDS: Multivitamin With Minerals Tab PO SCH (08:57)
[2017-10-18] MEDS: Potassium Chloride 20 mEq ER Tab PO SCH ×3 (09:09→16:49)
--- NOTE | 2017-10-18 10:00 | CP.PCM.PN ---
Subjective - Date & Time of Evaluation Date of Evaluation: 10/18/17 Time of Evaluation: 08:45 - Subjective Subjective: No fever feels better SOB better low back pain better denies CP abd pain resolved Objective - Vital Signs/Intake and Output Vital Signs (last 24 hours): Temp Pulse Resp BP Pulse Ox 98.3 F 82 18 148/71 97 10/18/17 08:18 10/18/17 08:57 10/18/17 08:18 10/18/17 08:57 10/18/17 08:18 - Medications Medications: Current Medications Acetaminophen (Tylenol 325mg Tab) 650 mg PO Q6 PRN PRN Reason: Pain, Mild (1-3) Acetaminophen/Codeine Phosphate (Tylenol/Codeine 300 Mg/30 Mg) 1 tab PO Q4 PRN PRN Reason: Pain, moderate (4-7) Last Admin: 10/18/17 00:27 Dose: 1 tab Albuterol Sulfate (Albuterol 0.083% Inhal Ro (2.5 Mg/3 Ml) Ud) 2.5 mg IH RQ4 PRN PRN Reason: Shortness of Breath Last Admin: 10/13/17 15:29 Dose: 2.5 mg Albuterol/Ipratropium (Duoneb 3 Mg/0.5 Mg (3 Ml) Ud) 3 ml IH RQ6 [facility] Last Admin: 10/18/17 07:46 Dose: 3 ml Doxazosin Mesylate (Cardura) 8 mg PO DAILY [facility] Last Admin: 10/18/17 08:56 Dose: 8 mg Fluconazole (Diflucan) 100 mg PO DAILY [facility] PRN Reason: Protocol Last Admin: 10/18/17 08:57 Dose: 100 mg Furosemide (Lasix) 20 mg PO DAILY [facility] Last Admin: 10/18/17 08:56 Dose: 20 mg Heparin Sodium (Porcine) (Heparin) 5,000 units SC Q8 [facility] PRN Reason: Protocol Last Admin: 10/18/17 08:55 Dose: 5,000 units Piperacillin Sod/Tazobactam (Sod 2.25 gm/ Sodium Chloride) 50 mls @ 50 mls/hr IVPB Q6 [facility] PRN Reason: Protocol Last Admin: 10/18/17 09:02 Dose: 50 mls/hr Insulin Detemir (Levemir) 10 units SC [facility] Last Admin: 10/17/17 21:22 Dose: 10 units Insulin Human Regular (Humulin R) 0 units SC ACCU-CHECK [facility] PRN Reason: Protocol Last Admin: 10/18/17 07:07 Dose: 2 units Lactulose (Enulose) 20 gm PO BID PRN PRN Reason: Constipation Last Admin: 10/18/17 09:06 Dose: 20 gm Lidocaine (Lidoderm) 1 ea TD DAILY [facility] Last Admin: 10/18/17 08:54 Dose: 1 ea Methylprednisolone (Solu-Medrol) 40 mg IVP DAILY [facility] Last Admin: 10/18/17 08:57 Dose: 40 mg Montelukast Sodium (Singulair) 10 mg PO HS [facility] Last Admin: 10/17/17 21:23 Dose: 10 mg Multivitamins/Minerals (Therapeutic-M Tab) 1 tab PO DAILY [facility] Last Admin: 10/18/17 08:57 Dose: 1 tab Ondansetron HCl (Zofran Inj) 4 mg IVP Q6 PRN PRN Reason: Nausea/Vomiting Last Admin: 10/16/17 23:30 Dose: 4 mg Pantoprazole Sodium (Protonix Ec Tab) 40 mg PO DAILY [facility] Last Admin: 10/18/17 08:56 Dose: 40 mg Potassium Chloride (K-Dur 20 Meq Er Tab) 20 meq PO TID [facility] Stop: 10/18/17 17:01 Last Admin: 10/18/17 09:09 Dose: 20 meq Temazepam (Restoril) 15 mg PO HS PRN PRN Reason: Insomnia Last Admin: 10/17/17 21:23 Dose: 15 mg Verapamil HCl (Calan Sr Tab) 240 mg PO DAILY [facility] Last Admin: 10/18/17 08:57 Dose: 240 mg - Labs Labs: 10/18/17 06:30 10/18/17 06:30 PT 11.4 Seconds (9.8-13.1) 10/12/17 12:20 INR 1.0 (0.9-1.2) 10/12/17 12:20 APTT 31.0 Seconds (25.6-37.1) 10/12/17 12:20 - Constitutional Appears: No acute Distress, Chronically Ill - Head Exam Head Exam: NORMAL INSPECTION, NORMOCEPHALIC - Eye Exam Eye Exam: EOMI, Normal appearance Pupil Exam: NORMAL ACCOMODATION - ENT Exam ENT Exam: Mucous Membranes Dry, Normal External Ear Exam - Neck Exam Neck Exam: Full ROM. absent: Meningismus - Respiratory Exam Respiratory Exam: improvement of Rales, Rhonchi, no wheezing On High flow Oxygen - Cardiovascular Exam Cardiovascular Exam: REGULAR RHYTHM, +S1, +S2 - GI/Abdominal Exam GI & Abdominal Exam: Soft, Normal Bowel Sounds. absent: Tenderness - Extremities Exam Extremities Exam: Normal Capillary Refill, Pedal Edema. absent: Calf Tenderness - Neurological Exam Neurological Exam: Awake Additional comments: oriented to person and place moves all extremities - Psychiatric Exam Psychiatric exam: Flat Affect - Skin Skin Exam: Dry, Normal Color, Warm Assessment and Plan - Assessment and Plan (Free Text) Assessment: 82 year old female with a past medical history significant for COPD on home oxygen, essential hypertension, Type 2 diabetes mellitus controlled with insulin , history of CHF, anxiety, depression, with admission to [facility] in May with acute cholecystitis came to ER with AMS , more lethargic , poor po intake and bilateral hip pain .in May patient and family opted for conservative management for acute cholecystitis due to multiple comorbidities. She improved with antibiotics and IV fluids. 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 and CT of abdomen this admission showed again 1. Redemonstration of distended gallbladder, small gallstones, diffuse gall bladder wall thickening and irregularity and questionable small pericholecystic in the region of the fundus. Findings may represent acute calculus cholecystitis in the appropriate clinical setting. 2. Left colonic diverticulosis without CT evidence for acute diverticulitis. Patient states that she fell recently 1. Bilateral hip pain Ct hip showed possible avascular necrosis of the left hip Orthopedic consultation with Dr. Davenport appreciated Due to patient's condition. comorbidities she is very high risk for any surgical intervention . She is not a candidate for surgery at this time . There is no acute fractures or dislocations seen on CT MRI spine showed : Mild anterior compression fracture L1 appears acute. No significant stenosis or retropulsion of fracture fragments is identified. A chronic L2 compression fractures identified, also mild. 2. 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 No spondylolysis is grossly evident. 3. No disc herniation appreciated throughout the examination. 1. 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 Also noted is moderate degenerative osteoarthro Please see Gen Abrams's note for more details- the patient does not require surgery at this time as per orthopedics. continue pain management , PT 2. Altered mental status-improved likely multifactorial causes, related to Infection (acute cholecystitis, fungal UTI, PNA? ) possible metabolic encephalopathy as well sec to hypercapnia given hx of COPD cont IV abx for tx of Cholecystitis Diflucan for tx of fungal UTI on High Flow Oxygen 3. Acute on Chronic Respiratory Failure with Hypoxia and Hypercapnea sec to COPD exacerbation , CHF exacerbation and poss Pneumonia patient is on home oxygen CXR showed LLF infiltrate vs Atelectasis on high Flow O2 vi anC FIo2 40 % pulmonary on consult tapered steroids lasix given Discussed with Dr Greene - will change to NC 2-3 liters 4.Acute on chronic cholecystitis General surgery consultation with Dr. Mitchell appreciated Patient's family wants conservative management for now Continue Zosyn and D/c Meropenem as per ID ID consultation with Dr. Sterling appreciated 5. Acute kidney injury Due to failure to thrive, decreased po intake improved with fluids Cr from 2.2 -- 1.1 Avoid nephrotoxic medications if possble 6. COPD exacerbation tapered steroids continue Duonebs patient is on home oxygen pulmonary on consult wean off high flow 7.? Suspected CAP ( prob bacterial) CXR : LLL infilt vs atelectasis pt is on IV Zosyn meropenem discontinued 8. UTI ? Fungal on Diflucan 9. CHF eacerbation, systolic and diastolic ECHO done last year showed EF 35% cont Lasix Hold ARB due to JADE no BB due to COPD 10. Hypertension Continue Verapamil with holding parameters Hold Avapro due to JADE 11. DM uncontrolled start levemir 10 unit SQ bedside continue accuchecks , insulin coverage diabetic diet Check Hgb A1c 12. DVT prophylaxis Heparin SQ 13. Anemia of chronic disease stable, Hgb 10 14. Hypokalemia possibly diuretic induced replace with KCl Po 15. Anxiety/ depression on trazodone and temazepam at home 16 Chronic Compression Fractures Pt had LBP Neurosurgery consulted- no Neurosurgical intervention Pain mgt Physical therapy
--- NOTE | 2017-10-18 10:04 | CP.PCM.PN ---
Subjective - Date & Time of Evaluation Date of Evaluation: 10/18/17 Time of Evaluation: 10:04 - Subjective Subjective: CLINICALLY IMPROVED Objective - Vital Signs/Intake and Output Vital Signs (last 24 hours): Temp Pulse Resp BP Pulse Ox 98.3 F 82 18 148/71 97 10/18/17 08:18 10/18/17 08:57 10/18/17 08:18 10/18/17 08:57 10/18/17 08:18 - Medications Medications: Current Medications Acetaminophen (Tylenol 325mg Tab) 650 mg PO Q6 PRN PRN Reason: Pain, Mild (1-3) Acetaminophen/Codeine Phosphate (Tylenol/Codeine 300 Mg/30 Mg) 1 tab PO Q4 PRN PRN Reason: Pain, moderate (4-7) Last Admin: 10/18/17 00:27 Dose: 1 tab Albuterol Sulfate (Albuterol 0.083% Inhal Ro (2.5 Mg/3 Ml) Ud) 2.5 mg IH RQ4 PRN PRN Reason: Shortness of Breath Last Admin: 10/13/17 15:29 Dose: 2.5 mg Albuterol/Ipratropium (Duoneb 3 Mg/0.5 Mg (3 Ml) Ud) 3 ml IH RQ6 [facility] Last Admin: 10/18/17 07:46 Dose: 3 ml Doxazosin Mesylate (Cardura) 8 mg PO DAILY [facility] Last Admin: 10/18/17 08:56 Dose: 8 mg Fluconazole (Diflucan) 100 mg PO DAILY [facility] PRN Reason: Protocol Last Admin: 10/18/17 08:57 Dose: 100 mg Furosemide (Lasix) 20 mg PO DAILY [facility] Last Admin: 10/18/17 08:56 Dose: 20 mg Heparin Sodium (Porcine) (Heparin) 5,000 units SC Q8 [facility] PRN Reason: Protocol Last Admin: 10/18/17 08:55 Dose: 5,000 units Piperacillin Sod/Tazobactam (Sod 2.25 gm/ Sodium Chloride) 50 mls @ 50 mls/hr IVPB Q6 [facility] PRN Reason: Protocol Last Admin: 10/18/17 09:02 Dose: 50 mls/hr Insulin Detemir (Levemir) 10 units SC HS [facility] Last Admin: 10/17/17 21:22 Dose: 10 units Insulin Human Regular (Humulin R) 0 units SC ACCU-CHECK [facility] PRN Reason: Protocol Last Admin: 10/18/17 07:07 Dose: 2 units Lactulose (Enulose) 20 gm PO BID PRN PRN Reason: Constipation Last Admin: 10/18/17 09:06 Dose: 20 gm Lidocaine (Lidoderm) 1 ea TD DAILY [facility] Last Admin: 10/18/17 08:54 Dose: 1 ea Methylprednisolone (Solu-Medrol) 40 mg IVP DAILY [facility] Last Admin: 10/18/17 08:57 Dose: 40 mg Montelukast Sodium (Singulair) 10 mg PO HS [facility] Last Admin: 10/17/17 21:23 Dose: 10 mg Multivitamins/Minerals (Therapeutic-M Tab) 1 tab PO DAILY [facility] Last Admin: 10/18/17 08:57 Dose: 1 tab Ondansetron HCl (Zofran Inj) 4 mg IVP Q6 PRN PRN Reason: Nausea/Vomiting Last Admin: 10/16/17 23:30 Dose: 4 mg Pantoprazole Sodium (Protonix Ec Tab) 40 mg PO DAILY [facility] Last Admin: 10/18/17 08:56 Dose: 40 mg Potassium Chloride (K-Dur 20 Meq Er Tab) 20 meq PO TID [facility] Stop: 10/18/17 17:01 Last Admin: 10/18/17 09:09 Dose: 20 meq Temazepam (Restoril) 15 mg PO HS PRN PRN Reason: Insomnia Last Admin: 10/17/17 21:23 Dose: 15 mg Verapamil HCl (Calan Sr Tab) 240 mg PO DAILY [facility] Last Admin: 10/18/17 08:57 Dose: 240 mg - Labs Labs: 10/18/17 06:30 10/18/17 06:30 PT 11.4 Seconds (9.8-13.1) 10/12/17 12:20 INR 1.0 (0.9-1.2) 10/12/17 12:20 APTT 31.0 Seconds (25.6-37.1) 10/12/17 12:20 - Constitutional Appears: No Acute Distress - Head Exam Head Exam: ATRAUMATIC, NORMAL INSPECTION, NORMOCEPHALIC - Eye Exam Eye Exam: EOMI, Normal appearance, PERRL Pupil Exam: NORMAL ACCOMODATION, PERRL - ENT Exam ENT Exam: Mucous Membranes Moist, Normal Exam - Neck Exam Neck Exam: Full ROM, Normal Inspection. absent: Lymphadenopathy - Respiratory Exam Respiratory Exam: Prolonged Expiratory Phase, Rales, NORMAL BREATHING PATTERN - Cardiovascular Exam Cardiovascular Exam: REGULAR RHYTHM, +S1, +S2. absent: Murmur - GI/Abdominal Exam GI & Abdominal Exam: Soft, Normal Bowel Sounds. absent: Tenderness - Rectal Exam Rectal Exam: NORMAL INSPECTION - Extremities Exam Extremities Exam: Full ROM, Normal Capillary Refill, Normal Inspection. absent : Joint Swelling, Pedal Edema - Back Exam Back Exam: NORMAL INSPECTION - Neurological Exam Neurological Exam: Alert, Awake, CN II-XII Intact, Normal Gait, Oriented x3 - Psychiatric Exam Psychiatric exam: Normal Affect, Normal Mood - Skin Skin Exam: Dry, Intact, Normal Color, Warm Assessment and Plan - Assessment and Plan (Free Text) Assessment: RESPIRATORY FAILURE IMPROVED Plan: CHANGE O2 TO NC
--- NOTE | 2017-10-18 10:24 | CP.PCM.CON ---
History of Present Illness - History of Present Illness History of Present Illness: typical L1 osteoporotic compression Fx no sig retropulsion/canal comprimise basically incidentall finding on CT abdomen does not require any Tx Past Patient History - Infectious Disease Hx of Infectious Diseases: None - Tetanus Immunizations Tetanus Immunization: Unknown - Past Medical History & Family History Past Medical History?: Yes Past Family History: Reviewed and not pertinent - Past Social History Smoking Status: Current Some Days Smoker - CARDIAC Hx Cardiac Disorders: Yes Hx Congestive Heart Failure: Yes Hx Hypercholesterolemia: Yes - PULMONARY Hx Chronic Obstructive Pulmonary Disease (COPD): Yes - NEUROLOGICAL Hx Neurological Disorder: No Hx Seizures: No - HEENT Hx HEENT Problems: No - RENAL Hx Chronic Kidney Disease: No - ENDOCRINE/METABOLIC Hx Diabetes Mellitus Type 2: Yes Hx Hypothyroidism: Yes - HEMATOLOGICAL/ONCOLOGICAL Hx Blood Disorders: No Hx AIDS: No Hx Human Immunodeficiency Virus (HIV): No - INTEGUMENTARY Hx Dermatological Problems: No - MUSCULOSKELETAL/RHEUMATOLOGICAL Hx Musculoskeletal Disorders: Yes Hx Falls: Yes - GASTROINTESTINAL Hx Gastrointestinal Disorders: Yes Hx Gastritis: Yes - GENITOURINARY/GYNECOLOGICAL Hx Genitourinary Disorders: Yes Hx Uterine Cancer: Yes Hx Urinary Tract Infection: Yes - PSYCHIATRIC Hx Psychophysiologic Disorder: Yes Hx Anxiety: Yes Hx Depression: Yes Hx Substance Use: No - SURGICAL HISTORY Hx Surgeries: Yes Hx Appendectomy: Yes - ANESTHESIA Hx Anesthesia: Yes Hx Anesthesia Reactions: No Hx Malignant Hyperthermia: No Meds Allergies/Adverse Reactions: Allergies Allergy/AdvReac Type Severity Reaction Status Date / Time No Known Allergies Allergy Verified 03/04/16 15:46 - Medications Medications: Current Medications Acetaminophen (Tylenol 325mg Tab) 650 mg PO Q6 PRN PRN Reason: Pain, Mild (1-3) Acetaminophen/Codeine Phosphate (Tylenol/Codeine 300 Mg/30 Mg) 1 tab PO Q4 PRN PRN Reason: Pain, moderate (4-7) Last Admin: 10/18/17 00:27 Dose: 1 tab Albuterol Sulfate (Albuterol 0.083% Inhal Ro (2.5 Mg/3 Ml) Ud) 2.5 mg IH RQ4 PRN PRN Reason: Shortness of Breath Last Admin: 10/13/17 15:29 Dose: 2.5 mg Albuterol/Ipratropium (Duoneb 3 Mg/0.5 Mg (3 Ml) Ud) 3 ml IH RQ6 [facility] Last Admin: 10/18/17 07:46 Dose: 3 ml Doxazosin Mesylate (Cardura) 8 mg PO DAILY [facility] Last Admin: 10/18/17 08:56 Dose: 8 mg Fluconazole (Diflucan) 100 mg PO DAILY [facility] PRN Reason: Protocol Last Admin: 10/18/17 08:57 Dose: 100 mg Furosemide (Lasix) 20 mg PO DAILY [facility] Last Admin: 10/18/17 08:56 Dose: 20 mg Heparin Sodium (Porcine) (Heparin) 5,000 units SC Q8 [facility] PRN Reason: Protocol Last Admin: 10/18/17 08:55 Dose: 5,000 units Piperacillin Sod/Tazobactam (Sod 2.25 gm/ Sodium Chloride) 50 mls @ 50 mls/hr IVPB Q6 [facility] PRN Reason: Protocol Last Admin: 10/18/17 09:02 Dose: 50 mls/hr Insulin Detemir (Levemir) 10 units SC HS [facility] Last Admin: 10/17/17 21:22 Dose: 10 units Insulin Human Regular (Humulin R) 0 units SC ACCU-CHECK [facility] PRN Reason: Protocol Last Admin: 10/18/17 07:07 Dose: 2 units Lactulose (Enulose) 20 gm PO BID PRN PRN Reason: Constipation Last Admin: 10/18/17 09:06 Dose: 20 gm Lidocaine (Lidoderm) 1 ea TD DAILY [facility] Last Admin: 10/18/17 08:54 Dose: 1 ea Methylprednisolone (Solu-Medrol) 40 mg IVP DAILY [facility] Last Admin: 10/18/17 08:57 Dose: 40 mg Montelukast Sodium (Singulair) 10 mg PO HS [facility] Last Admin: 10/17/17 21:23 Dose: 10 mg Multivitamins/Minerals (Therapeutic-M Tab) 1 tab PO DAILY [facility] Last Admin: 10/18/17 08:57 Dose: 1 tab Ondansetron HCl (Zofran Inj) 4 mg IVP Q6 PRN PRN Reason: Nausea/Vomiting Last Admin: 10/16/17 23:30 Dose: 4 mg Pantoprazole Sodium (Protonix Ec Tab) 40 mg PO DAILY [facility] Last Admin: 10/18/17 08:56 Dose: 40 mg Potassium Chloride (K-Dur 20 Meq Er Tab) 20 meq PO TID [facility] Stop: 10/18/17 17:01 Last Admin: 10/18/17 09:09 Dose: 20 meq Temazepam (Restoril) 15 mg PO HS PRN PRN Reason: Insomnia Last Admin: 10/17/17 21:23 Dose: 15 mg Verapamil HCl (Calan Sr Tab) 240 mg PO DAILY [facility] Last Admin: 10/18/17 08:57 Dose: 240 mg Results - Vital Signs Recent Vital Signs: Last Vital Signs Temp 98.3 F 10/18/17 08:18 Pulse 82 10/18/17 08:57 Resp 18 10/18/17 08:18 BP 148/71 10/18/17 08:57 Pulse Ox 97 10/18/17 08:18 - Labs Result Diagrams: 10/18/17 06:30 10/18/17 06:30 Labs: Laboratory Results - last 24 hr 10/17/17 10/17/17 10/17/17 11:50 16:10 21:15 WBC RBC Hgb Hct MCV MCH MCHC RDW Plt Count Sodium Potassium Chloride Carbon Dioxide Anion Gap BUN Creatinine Est GFR ( Amer) Est GFR (Non-Af Amer) POC Glucose (mg/dL) 307 H 328 H 176 H Random Glucose Calcium Magnesium 10/18/17 10/18/17 10/18/17 05:27 06:30 06:30 WBC 9.0 RBC 3.68 L Hgb 10.4 L Hct 32.5 L MCV 88.1 MCH 28.3 MCHC 32.1 L RDW 16.9 H Plt Count 167 Sodium 144 Potassium 3.0 L Chloride 94 L Carbon Dioxide 45 H* Anion Gap 8 L BUN 49 H Creatinine 1.0 Est GFR ( Amer) > 60 Est GFR (Non-Af Amer) 53 POC Glucose (mg/dL) 161 H Random Glucose 156 H Calcium 9.1 Magnesium 1.9
[2017-10-18] MEDS: Insulin Detemir 100 Units/ml Inj SC SCH (21:56)
[2017-10-19] MEDS: Albuterol-Ipratrop 3 mg / 0.5 (3 ml) UD IH SCH ×3 (01:04→13:11)
[2017-10-19] MEDS: Piperacillin/Tazobact 2.25 GM in Sodium Chloride 0.9% 50 ML IVPB SCH ×2 (03:53→09:18)
[2017-10-19] MEDS: Insulin Regular 100 units/ml SC SCH ×2 (06:42→11:41)
[2017-10-19 07:55] VITALS: RESP 18
--- NOTE | 2017-10-19 08:55 | CP.PCM.PN ---
Subjective - Date & Time of Evaluation Date of Evaluation: 10/19/17 Time of Evaluation: 08:55 - Subjective Subjective: SOB IMPROVED AWAKE AND ALERT Objective - Vital Signs/Intake and Output Vital Signs (last 24 hours): Temp Pulse Resp BP Pulse Ox 97.3 F L 76 18 134/72 97 10/19/17 07:54 10/19/17 07:54 10/19/17 07:54 10/19/17 07:54 10/19/17 07:54 - Medications Medications: Current Medications Acetaminophen (Tylenol 325mg Tab) 650 mg PO Q6 PRN PRN Reason: Pain, Mild (1-3) Acetaminophen/Codeine Phosphate (Tylenol/Codeine 300 Mg/30 Mg) 1 tab PO Q4 PRN PRN Reason: Pain, moderate (4-7) Last Admin: 10/18/17 00:27 Dose: 1 tab Albuterol Sulfate (Albuterol 0.083% Inhal Ro (2.5 Mg/3 Ml) Ud) 2.5 mg IH RQ4 PRN PRN Reason: Shortness of Breath Last Admin: 10/13/17 15:29 Dose: 2.5 mg Albuterol/Ipratropium (Duoneb 3 Mg/0.5 Mg (3 Ml) Ud) 3 ml IH RQ6 [facility] Last Admin: 10/19/17 07:33 Dose: 3 ml Doxazosin Mesylate (Cardura) 8 mg PO DAILY [facility] Last Admin: 10/18/17 08:56 Dose: 8 mg Fluconazole (Diflucan) 100 mg PO DAILY [facility] PRN Reason: Protocol Last Admin: 10/18/17 08:57 Dose: 100 mg Furosemide (Lasix) 20 mg PO DAILY [facility] Last Admin: 10/18/17 08:56 Dose: 20 mg Heparin Sodium (Porcine) (Heparin) 5,000 units SC Q8 [facility] PRN Reason: Protocol Last Admin: 10/19/17 00:52 Dose: 5,000 units Piperacillin Sod/Tazobactam (Sod 2.25 gm/ Sodium Chloride) 50 mls @ 50 mls/hr IVPB Q6 [facility] PRN Reason: Protocol Last Admin: 10/19/17 03:53 Dose: 50 mls/hr Insulin Detemir (Levemir) 10 units SC HS [facility] Last Admin: 10/18/17 21:56 Dose: 10 units Insulin Human Regular (Humulin R) 0 units SC ACCU-CHECK [facility] PRN Reason: Protocol Last Admin: 10/19/17 06:42 Dose: 4 units Lactulose (Enulose) 20 gm PO BID PRN PRN Reason: Constipation Last Admin: 10/18/17 09:06 Dose: 20 gm Lidocaine (Lidoderm) 1 ea TD DAILY [facility] Last Admin: 10/18/17 08:54 Dose: 1 ea Methylprednisolone (Solu-Medrol) 30 mg IVP DAILY [facility] Montelukast Sodium (Singulair) 10 mg PO HS [facility] Last Admin: 10/18/17 21:22 Dose: 10 mg Multivitamins/Minerals (Therapeutic-M Tab) 1 tab PO DAILY [facility] Last Admin: 10/18/17 08:57 Dose: 1 tab Ondansetron HCl (Zofran Inj) 4 mg IVP Q6 PRN PRN Reason: Nausea/Vomiting Last Admin: 10/16/17 23:30 Dose: 4 mg Pantoprazole Sodium (Protonix Ec Tab) 40 mg PO DAILY [facility] Last Admin: 10/18/17 08:56 Dose: 40 mg Temazepam (Restoril) 15 mg PO HS PRN PRN Reason: Insomnia Last Admin: 10/18/17 22:19 Dose: 15 mg Verapamil HCl (Calan Sr Tab) 240 mg PO DAILY [facility] Last Admin: 10/18/17 08:57 Dose: 240 mg - Labs Labs: 10/18/17 06:30 10/18/17 06:30 PT 11.4 Seconds (9.8-13.1) 10/12/17 12:20 INR 1.0 (0.9-1.2) 10/12/17 12:20 APTT 31.0 Seconds (25.6-37.1) 10/12/17 12:20 - Constitutional Appears: No Acute Distress - Head Exam Head Exam: ATRAUMATIC, NORMAL INSPECTION, NORMOCEPHALIC - Eye Exam Eye Exam: EOMI, Normal appearance, PERRL Pupil Exam: NORMAL ACCOMODATION, PERRL - ENT Exam ENT Exam: Mucous Membranes Moist, Normal Exam - Neck Exam Neck Exam: Full ROM, Normal Inspection. absent: Lymphadenopathy - Respiratory Exam Respiratory Exam: Prolonged Expiratory Phase, NORMAL BREATHING PATTERN - Cardiovascular Exam Cardiovascular Exam: REGULAR RHYTHM, +S1, +S2. absent: Murmur - GI/Abdominal Exam GI & Abdominal Exam: Soft, Normal Bowel Sounds. absent: Tenderness - Rectal Exam Rectal Exam: NORMAL INSPECTION - Extremities Exam Extremities Exam: Full ROM, Normal Capillary Refill, Normal Inspection. absent : Joint Swelling, Pedal Edema - Back Exam Back Exam: NORMAL INSPECTION - Neurological Exam Neurological Exam: Alert, Awake, CN II-XII Intact, Normal Gait, Oriented x3 - Psychiatric Exam Psychiatric exam: Normal Affect, Normal Mood - Skin Skin Exam: Dry, Intact, Normal Color, Warm Assessment and Plan - Assessment and Plan (Free Text) Assessment: COPD-STABLE RESPIRATORY FAILURE RESOLVED Plan: CONSIDER TCU/SUBACUTE REHAB
[2017-10-19] MEDS ORDERED: MethylPREDNISolone 40 mg Vial IVP SCH (09:00)
--- NOTE | 2017-10-19 09:07 | CP.PCM.PN ---
Subjective - Date & Time of Evaluation Date of Evaluation: 10/19/17 Time of Evaluation: 09:04 - Subjective Subjective: Patient states she has no pain at this time. She denies any numbness/tingling/CP /SOB at this time. Review of Systems - Review of Systems All systems: reviewed and no additional remarkable complaints except - Cardiovascular Cardiovascular: As Per HPI - Respiratory Respiratory: As Per HPI - Musculoskeletal Musculoskeletal: As Par HPI - Integumentary Integumentary: UNREMARKABLE - Neurological Neurological: As Per HPI - Hematologic/Lymphatic Hematologic: UNREMARKABLE Objective - Vital Signs/Intake and Output Vital Signs (last 24 hours): Temp Pulse Resp BP Pulse Ox 97.3 F L 76 18 134/72 97 10/19/17 07:54 10/19/17 07:54 10/19/17 07:54 10/19/17 07:54 10/19/17 07:54 - Medications Medications: Current Medications Acetaminophen (Tylenol 325mg Tab) 650 mg PO Q6 PRN PRN Reason: Pain, Mild (1-3) Acetaminophen/Codeine Phosphate (Tylenol/Codeine 300 Mg/30 Mg) 1 tab PO Q4 PRN PRN Reason: Pain, moderate (4-7) Last Admin: 10/18/17 00:27 Dose: 1 tab Albuterol Sulfate (Albuterol 0.083% Inhal Ro (2.5 Mg/3 Ml) Ud) 2.5 mg IH RQ4 PRN PRN Reason: Shortness of Breath Last Admin: 10/13/17 15:29 Dose: 2.5 mg Albuterol/Ipratropium (Duoneb 3 Mg/0.5 Mg (3 Ml) Ud) 3 ml IH RQ6 [facility] Last Admin: 10/19/17 07:33 Dose: 3 ml Doxazosin Mesylate (Cardura) 8 mg PO DAILY [facility] Last Admin: 10/18/17 08:56 Dose: 8 mg Fluconazole (Diflucan) 100 mg PO DAILY [facility] PRN Reason: Protocol Last Admin: 10/18/17 08:57 Dose: 100 mg Furosemide (Lasix) 20 mg PO DAILY [facility] Last Admin: 10/18/17 08:56 Dose: 20 mg Heparin Sodium (Porcine) (Heparin) 5,000 units SC Q8 [facility] PRN Reason: Protocol Last Admin: 10/19/17 00:52 Dose: 5,000 units Piperacillin Sod/Tazobactam (Sod 2.25 gm/ Sodium Chloride) 50 mls @ 50 mls/hr IVPB Q6 [facility] PRN Reason: Protocol Last Admin: 10/19/17 03:53 Dose: 50 mls/hr Insulin Detemir (Levemir) 10 units SC HS [facility] Last Admin: 10/18/17 21:56 Dose: 10 units Insulin Human Regular (Humulin R) 0 units SC ACCU-CHECK [facility] PRN Reason: Protocol Last Admin: 10/19/17 06:42 Dose: 4 units Lactulose (Enulose) 20 gm PO BID PRN PRN Reason: Constipation Last Admin: 10/18/17 09:06 Dose: 20 gm Lidocaine (Lidoderm) 1 ea TD DAILY [facility] Last Admin: 10/18/17 08:54 Dose: 1 ea Methylprednisolone (Solu-Medrol) 30 mg IVP DAILY [facility] Montelukast Sodium (Singulair) 10 mg PO HS [facility] Last Admin: 10/18/17 21:22 Dose: 10 mg Multivitamins/Minerals (Therapeutic-M Tab) 1 tab PO DAILY [facility] Last Admin: 10/18/17 08:57 Dose: 1 tab Ondansetron HCl (Zofran Inj) 4 mg IVP Q6 PRN PRN Reason: Nausea/Vomiting Last Admin: 10/16/17 23:30 Dose: 4 mg Pantoprazole Sodium (Protonix Ec Tab) 40 mg PO DAILY [facility] Last Admin: 10/18/17 08:56 Dose: 40 mg Temazepam (Restoril) 15 mg PO HS PRN PRN Reason: Insomnia Last Admin: 10/18/17 22:19 Dose: 15 mg Verapamil HCl (Calan Sr Tab) 240 mg PO DAILY [facility] Last Admin: 10/18/17 08:57 Dose: 240 mg - Labs Labs: 10/18/17 06:30 10/18/17 06:30 PT 11.4 Seconds (9.8-13.1) 10/12/17 12:20 INR 1.0 (0.9-1.2) 10/12/17 12:20 APTT 31.0 Seconds (25.6-37.1) 10/12/17 12:20 - Constitutional Appears: Well, No Acute Distress - Head Exam Head Exam: ATRAUMATIC - Neck Exam Neck Exam: Full ROM, Normal Inspection - Respiratory Exam Respiratory Exam: NORMAL BREATHING PATTERN - Extremities Exam Additional comments: LLE: sensation intact, +dp/PT pulses calves soft NT neg homans - Back Exam Back Exam: NORMAL INSPECTION Additional comments: non tender - Neurological Exam Neurological Exam: Alert, Awake Neuro motor strength exam: Left Lower Extremity: 5 (LLE:+ROM ankle/toes, sensation intact) - Psychiatric Exam Psychiatric exam: Normal Affect, Normal Mood - Skin Skin Exam: Dry, Intact, Normal Color, Warm Assessment and Plan (1) Avascular necrosis of left femoral head Assessment & Plan: Currently no hip/groin pain Today not complaining of left gluteal pain neurosurg consult appreciated no orthopedic intervention planned at this time VTE proph PT/OT d/w Dr. Davenport, agrees with above Status: Chronic (2) Degenerative joint disease of right hip Status: Chronic (3) Degenerative joint disease of left hip Status: Chronic (4) Compression fracture of L1 lumbar vertebra Assessment & Plan: no intervention per neurosurg Status: Acute
[2017-10-19] MEDS: Verapamil 240 mg ER Tab PO SCH (09:14)
[2017-10-19] MEDS: Lidocaine 5% Patch TD SCH (09:15)
[2017-10-19] MEDS: Multivitamin With Minerals Tab PO SCH (09:16)
[2017-10-19] MEDS: Pantoprazole 40 mg EC Tab PO SCH (09:16)
[2017-10-19 09:24] LABS: CARBON DIOXIDE 44 mmol/L (22-30)
[2017-10-19 09:25] LABS: BLOOD UREA NITROGEN 39 mg/dl (7-17); CALCIUM 8.7 mg/dL (8.4-10.2); CHLORIDE 92 mmol/L (98-107); GFR AFRICAN-AMERICAN > 60; GLUCOSE,RANDOM 243 mg/dL (65-105); MAGNESIUM 1.8 MG/DL (1.6-2.3); POTASSIUM 3.9 MMOL/L (3.6-5.0); SODIUM 138 mmol/l (132-148)
--- NOTE | 2017-10-19 10:04 | CP.PCM.DIS ---
Provider - Provider Date of Admission: 10/12/17 15:31 Attending physician: Lloyd Bain DO Primary care physician: Dr Segundo Consults: Pulm: Dr Greene Surgery : Dr Mitchell ID: Dr Sterling Ortho: DR Dougherty Neurosurgery : Dr Ortiz Time Spent in preparation of Discharge (in minutes): 40 Diagnosis - Discharge Diagnosis (1) Acute hypercapnic respiratory failure Status: Acute (2) Acute cholecystitis Status: Acute (3) Avascular necrosis of femoral head Status: Chronic (4) Compression fracture of L1 lumbar vertebra Status: Chronic (5) JADE (acute kidney injury) Status: Acute (6) Degenerative joint disease of left hip Status: Chronic (7) COPD exacerbation Status: Acute Priority: High Onset Date: 05/14/16 (8) Electrolyte imbalance Status: Acute Priority: High (9) Anemia Status: Chronic Priority: Low (10) Hypertension Status: Chronic Priority: Medium (11) Muscular deconditioning Status: Chronic Priority: Low (12) Type 2 diabetes mellitus Status: Chronic Priority: High (13) Acute metabolic encephalopathy Status: Acute Hospital Course - Lab Results Lab Results: Micro Results 10/12/17 16:15 Blood Blood Culture - Final Corynebacterium Species 10/12/17 16:15 Blood Gram Stain - Final Most Recent Lab Values WBC 9.0 K/uL (4.8-10.8) 10/18/17 06:30 RBC 3.68 Mil/uL (3.80-5.20) L 10/18/17 06:30 Hgb 10.4 g/dL (12.0-16.0) L 10/18/17 06:30 Hct 32.5 % (34.0-47.0) L 10/18/17 06:30 MCV 88.1 fl (81.0-99.0) 10/18/17 06:30 MCH 28.3 pg (27.0-31.0) 10/18/17 06:30 MCHC 32.1 g/dL (33.0-37.0) L 10/18/17 06:30 RDW 16.9 % (11.5-14.5) H 10/18/17 06:30 Plt Count 167 K/uL (130-400) 10/18/17 06:30 MPV 9.4 fl (7.2-11.7) 10/15/17 04:30 Neut % (Auto) 88.2 % (50.0-75.0) H 10/15/17 04:30 Lymph % (Auto) 9.3 % (20.0-40.0) L 10/15/17 04:30 Crisp % (Auto) 2.3 % (0.0-10.0) 10/15/17 04:30 Eos % (Auto) 0.1 % (0.0-4.0) 10/15/17 04:30 Baso % (Auto) 0.1 % (0.0-2.0) 10/15/17 04:30 Neut # 5.4 K/uL (1.8-7.0) 10/15/17 04:30 Lymph # 0.6 K/uL (1.0-4.3) L 10/15/17 04:30 Crisp # 0.1 K/uL (0.0-0.8) 10/15/17 04:30 Eos # 0.0 K/uL (0.0-0.7) 10/15/17 04:30 Baso # 0.0 K/uL (0.0-0.2) 10/15/17 04:30 Neutrophils % (Manual) 86 % (42-75) H 10/12/17 12:20 Lymphocytes % (Manual) 6 % (20-50) L 10/12/17 12:20 Monocytes % (Manual) 5 % (0-10) 10/12/17 12:20 Eosinophils % (Manual) 3 % (0-7) 10/12/17 12:20 Platelet Estimate Decreased (NORMAL) L 10/12/17 12:20 Large Platelets Present 10/12/17 12:20 Hypochromasia (manual) Slight 10/12/17 12:20 Anisocytosis (manual) Slight 10/12/17 12:20 Azalea Cells Moderate 10/12/17 12:20 PT 11.4 Seconds (9.8-13.1) 10/12/17 12:20 INR 1.0 (0.9-1.2) 10/12/17 12:20 APTT 31.0 Seconds (25.6-37.1) 10/12/17 12:20 pCO2 61 mm/Hg (35-45) H 10/14/17 10:38 pO2 424 mm/Hg (80-100) H 10/14/17 10:38 HCO3 31.3 mmol/L (21-28) H 10/14/17 10:38 ABG pH 7.37 (7.35-7.45) 10/14/17 10:38 ABG Total CO2 37.2 mmol/L (22-28) H 10/14/17 10:38 ABG O2 Saturation 100.6 % (95-98) H 10/14/17 10:38 ABG O2 Content 16.8 ML/dL (15-23) 10/14/17 10:38 ABG Base Excess 8.2 mmol/L (-2.0-3.0) H 10/14/17 10:38 ABG Hemoglobin 11.5 g/dL (11.7-17.4) L 10/14/17 10:38 ABG Carboxyhemoglobin 2.1 % (0.5-1.5) H 10/14/17 10:38 POC ABG HHb (Measured) -0.6 % (0.0-5.0) L 10/14/17 10:38 ABG Methemoglobin 1.7 % (0.0-3.0) 10/14/17 10:38 ABG O2 Capacity 16.7 mL/dL (16-24) 10/14/17 10:38 Roger Test Yes 10/14/17 10:38 A-a O2 Difference 213.0 mm/Hg 10/14/17 10:38 Hgb O2 Saturation 96.9 % (95.0-98.0) 10/14/17 10:38 Liter Flow 3 10/13/17 11:58 Vent Mode Nc 10/13/17 11:58 FiO2 100.0 % 10/14/17 10:38 Sodium 138 mmol/l (132-148) 10/19/17 08:15 Potassium 3.9 MMOL/L (3.6-5.0) 10/19/17 08:15 Chloride 92 mmol/L (98-107) L 10/19/17 08:15 Carbon Dioxide 44 mmol/L (22-30) H* 10/19/17 08:15 Anion Gap 6 (10-20) L 10/19/17 08:15 BUN 39 mg/dl (7-17) H 10/19/17 08:15 Creatinine 0.8 mg/dl (0.7-1.2) 10/19/17 08:15 Est GFR ( Amer) > 60 10/19/17 08:15 Est GFR (Non-Af Amer) > 60 10/19/17 08:15 POC Glucose (mg/dL) 196 mg/dL (65-110) H 10/18/17 21:36 Random Glucose 243 mg/dL (65-105) H 10/19/17 08:15 Hemoglobin A1c 10.1 % (4.2-6.5) H 10/18/17 06:30 Calcium 8.7 mg/dL (8.4-10.2) 10/19/17 08:15 Magnesium 1.8 MG/DL (1.6-2.3) 10/19/17 08:15 Total Bilirubin 0.6 mg/dl (0.2-1.3) 10/15/17 04:30 AST 23 U/L (14-36) 10/15/17 04:30 ALT 29 U/L (9-52) 10/15/17 04:30 Alkaline Phosphatase 106 U/L (38-126) 10/15/17 04:30 Troponin I 0.0200 ng/mL (0.00-0.120) 10/12/17 12:20 NT-Pro-B Natriuret Pep 2220 pg/ml (0-900) H 10/15/17 04:30 Total Protein 5.7 G/DL (6.3-8.2) L 10/15/17 04:30 Albumin 3.0 g/dL (3.5-5.0) L 10/15/17 04:30 Globulin 2.8 gm/dL (2.2-3.9) 10/15/17 04:30 Albumin/Globulin Ratio 1.1 (1.0-2.1) 10/15/17 04:30 Urine Color Natalie (YELLOW) 10/12/17 12:08 Urine Clarity Cloudy (Clear) 10/12/17 12:08 Urine pH 5.0 (5.0-8.0) 10/12/17 12:08 Ur Specific Austin 1.018 (1.003-1.030) 10/12/17 12:08 Urine Protein 30 mg/dL (NEGATIVE) 10/12/17 12:08 Urine Glucose (UA) Neg mg/dL (Normal) 10/12/17 12:08 Urine Ketones Negative mg/dL (NEGATIVE) 10/12/17 12:08 Urine Blood Small (NEGATIVE) 10/12/17 12:08 Urine Nitrate Negative (NEGATIVE) 10/12/17 12:08 Urine Bilirubin Negative (NEGATIVE) 10/12/17 12:08 Urine Urobilinogen 0.2-1.0 mg/dL (0.2-1.0) 10/12/17 12:08 Ur Leukocyte Esterase Mod Aki/uL (Negative) 10/12/17 12:08 Urine RBC (Auto) 2 /hpf (0-3) 10/12/17 12:08 Urine Microscopic WBC 26 /hpf (0-5) H 10/12/17 12:08 Urine Yeast (Budding) Mod /hpf (NEGATIVE) H 10/12/17 12:08 Acetaminophen 11.0 ug/ml (10.0-30.0) 10/12/17 12:20 - Hospital Course Hospital Course: 82 year old female with a past medical history significant for COPD on home oxygen, essential hypertension, Type 2 diabetes mellitus controlled with insulin , history of CHF, anxiety, depression, Hx of fall, with admission to [facility] in May with acute cholecystitis came to ER with AMS , more lethargic , poor po intake and bilateral hip pain .in May patient and family opted for conservative management for acute cholecystitis due to multiple comorbidities. She improved with antibiotics and IV fluids. 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 and CT of abdomen this admission showed again 1. Redemonstration of distended gallbladder, small gallstones, diffuse gall bladder wall thickening and irregularity and questionable small pericholecystic in the region of the fundus. Findings may represent acute calculus cholecystitis in the appropriate clinical setting. 2. Left colonic diverticulosis without CT evidence for acute diverticulitis. 1. Altered mental status-improved likely multifactorial causes, related to Infection (acute cholecystitis, fungal UTI, PNA? ) possible metabolic encephalopathy as well sec to hypercapnia given hx of COPD cont IV abx for tx of Cholecystitis Diflucan for tx of fungal UTI cont Oxygen 2. Acute on Chronic Respiratory Failure with Hypoxia and Hypercapnea sec to COPD exacerbation , CHF exacerbation and poss Pneumonia patient is on home oxygen CXR showed LLF infiltrate vs Atelectasis Placed on high Flow O2 vi anC FIo2 40 %- now changed to NC 2 liters and doing well pulmonary on consult tapered steroids lasix given Discussed with Dr Greene - plan to d/c pt [facility] 3. Bilateral hip pain Ct hip showed possible avascular necrosis of the left hip Orthopedic consultation with Dr. Davenport appreciated Due to patient's condition. comorbidities she is very high risk for any surgical intervention . She is not a candidate for surgery at this time . There is no acute fractures or dislocations seen on CT MRI spine showed : Mild anterior compression fracture L1 appears acute. No significant stenosis or retropulsion of fracture fragments is identified. A chronic L2 compression fractures identified, also mild. 2. 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 No spondylolysis is grossly evident. 3. No disc herniation appreciated throughout the examination. 1. 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 Also noted is moderate degenerative osteoarthro Please see Gen Abrams's note for more details- the patient does not require surgery at this time as per orthopedics. continue pain management , PT - d/c to [facility] for PT 4.Acute on chronic cholecystitis General surgery consultation with Dr. Mitchell appreciated Patient's family wants conservative management for now Continue Zosyn x 5 more days and D/c Meropenem as per ID ID consultation with Dr. Sterling appreciated 5. Acute kidney injury due to dehydration due to poor PO inatke improved with fluids Cr from 2.2 -- 1.1 Avoid nephrotoxic medications if possble 6. COPD exacerbation tapered steroids continue Duonebs patient is on home oxygen pulmonary on consult 7.? Suspected CAP ( prob bacterial) CXR : LLL infilt vs atelectasis pt is on IV Zosyn meropenem discontinued 8. UTI , Fungal on Diflucan 9. CHF eacerbation, systolic and diastolic ECHO done last year showed EF 35% cont Lasix Hold ARB due to JADE no BB due to COPD 10. Hypertension Continue Verapamil, Avapro 11. DM uncontrolled start levemir 10 unit SQ bedside continue accuchecks , insulin coverage diabetic diet Check Hgb A1c 12. DVT prophylaxis Heparin SQ 13. Anemia of chronic disease stable, Hgb 10 14. Hypokalemia possibly diuretic induced replace with KCl Po 15. Anxiety/ depression on trazodone and temazepam at home 16 Chronic Compression Fractures Pt had LBP, hx of fall Neurosurgery consulted- no Neurosurgical intervention Pain mgt Physical therapy Discharge Exam - Head Exam Head Exam: ATRAUMATIC, NORMAL INSPECTION, NORMOCEPHALIC - Eye Exam Eye Exam: EOMI, Normal appearance Pupil Exam: NORMAL ACCOMODATION - ENT Exam ENT Exam: Mucous Membranes Moist, Normal External Ear Exam - Neck Exam Neck exam: Full Rom - Respiratory Exam Respiratory Exam: Rales, Rhonchi. absent: Respiratory Distress - Cardiovascular Exam Cardiovascular Exam: REGULAR RHYTHM, +S1, +S2 - GI/Abdominal Exam GI & Abdominal Exam: Normal Bowel Sounds, Soft. absent: Tenderness - Extremities Exam Extremities exam: normal capillary refill, pedal pulses present - Back Exam Back exam: absent: CVA tenderness (L), CVA tenderness (R), vertebral tenderness - Neurological Exam Neurological exam: Alert, CN II-XII Intact, Oriented x3 - Psychiatric Exam Psychiatric exam: Normal Affect, Normal Mood - Skin Skin Exam: Dry, Normal Color, Warm Discharge Plan - Discharge Medications Prescriptions: Piperacill/Tazo 3.375gm in Dex [Zosyn 3.375 Gm IV] 3.375 gm IVPB Q6 5 Days bag Prednisone [Deltasone] 30 mg PO DAILY 10 Days tablet - Follow Up Plan Condition: GOOD Disposition: TRANSF TO SNF Additional Instructions: d/c to [facility] for IV antibiotics and for Physical therapy
[2017-10-19 12:17] VITALS: BP 147/69; PULSE 104; TEMP 98.4; O2SAT 94
== END 2017-10-19 15:44 | DRG 444 ==
LOC: H.ER 11:00 → H.ERHOLD 15:31 → H.TEL 18:21
PROVIDERS: ADMIT Internal Medicine; ATTEND Internal Medicine
PROC: 3E0F7GC Introduction of Other Therapeutic Substance into Respiratory Tract, Via Natural or Artificial Opening (ICD-10-PCS; principal; 2017-10-13)
DX: K80.12 Calculus of gallbladder with acute and chronic cholecystitis without obstruction (principal); G93.41 Metabolic encephalopathy; J96.21 Acute and chronic respiratory failure with hypoxia; I50.43 Acute on chronic combined systolic (congestive) and diastolic (congestive) heart failure; J15.9 Unspecified bacterial pneumonia; B49 Unspecified mycosis; N17.9 Acute kidney failure, unspecified; I95.9 Hypotension, unspecified; E11.65 Type 2 diabetes mellitus with hyperglycemia; I11.0 Hypertensive heart disease with heart failure; J96.22 Acute and chronic respiratory failure with hypercapnia; J44.0 Chronic obstructive pulmonary disease with (acute) lower respiratory infection; J44.1 Chronic obstructive pulmonary disease with (acute) exacerbation; J98.11 Atelectasis; M80.00XA Age-related osteoporosis with current pathological fracture, unspecified site, initial encounter for fracture; M87.9 Osteonecrosis, unspecified; N39.0 Urinary tract infection, site not specified; D63.8 Anemia in other chronic diseases classified elsewhere; E86.0 Dehydration; E03.9 Hypothyroidism, unspecified; E78.00 Pure hypercholesterolemia, unspecified; E87.6 Hypokalemia; F32.9 Major depressive disorder, single episode, unspecified; F41.9 Anxiety disorder, unspecified; I25.10 Atherosclerotic heart disease of native coronary artery without angina pectoris; K57.30 Diverticulosis of large intestine without perforation or abscess without bleeding; M06.9 Rheumatoid arthritis, unspecified; M16.0 Bilateral primary osteoarthritis of hip; M46.90 Unspecified inflammatory spondylopathy, site unspecified; M48.061 Spinal stenosis, lumbar region without neurogenic claudication; R62.7 Adult failure to thrive; Z66 Do not resuscitate; Z79.4 Long term (current) use of insulin; Z79.899 Other long term (current) drug therapy; Z85.42 Personal history of malignant neoplasm of other parts of uterus; Z87.01 Personal history of pneumonia (recurrent); Z87.440 Personal history of urinary (tract) infections; Z87.891 Personal history of nicotine dependence; Z90.49 Acquired absence of other specified parts of digestive tract; Z99.81 Dependence on supplemental oxygen; F45.9 Somatoform disorder, unspecified; K29.70 Gastritis, unspecified, without bleeding; K59.09 Other constipation; Z91.81 History of falling; Z79.84 Long term (current) use of oral hypoglycemic drugs; M54.5 Low back pain

== ENCOUNTER 2017-11-06 16:41 | Inpatient (IN) | payer MEDICARE ==
[2017-11-06 16:41] VITALS: BMI 22.8
--- NOTE | 2017-11-06 17:22 | ED PDOC ---
HPI: Altered Mental Status Time Seen by Provider: 11/06/17 17:12 Chief Complaint (Nursing): Weakness/Neurological Deficit Additional Complaint(s): Patient is an 82 y/o F with COPD on home O2, copd, htn, dm, chf, anxiety, depression, DNI/DNR on prior admissions, presenting with ams and decreased po intake. Patient unable to provide history Past Medical History Vital Signs: Last Vital Signs Temp 98.3 F 11/06/17 16:46 Pulse 92 H 11/06/17 16:46 Resp 16 11/06/17 16:46 BP 113/46 L 11/06/17 16:46 Pulse Ox 98 11/06/17 16:46 - Medical History PMH: Anemia, Anxiety, Arthritis, Asthma, CAD, CHF, COPD, Depression, Diabetes, Emphysema, Gastritis, HTN, Hypercholesterolemia, Hypothyroidism, Pneumonia, Rheumatoid Arthritis Denies: HIV, Chronic Kidney Disease, Seizures - Surgical History Surgical History: Appendectomy - Family History Family History: States: Unknown Family Hx - Home Medications Home Medications: Ambulatory Orders Medication Instructions Recorded Albuterol/Ipratropium [Duoneb 3 3 ml IH Q4H PRN 05/19/17 mg/0.5 mg (3 ml) UD] Doxazosin [Cardura] 8 mg PO DAILY 05/19/17 Glimepiride [amaRYL] 2 mg PO DAILY 05/19/17 Insulin Glargine, Recombina 10 unit SC DAILY 05/19/17 [Lantus] Montelukast [Singulair] 10 mg PO HS 05/19/17 Temazepam [Restoril] 30 mg PO HS 05/19/17 Trazodone HCl 150 mg PO HS 05/19/17 Verapamil HCl [Verapamil ER] 240 mg PO DAILY 05/19/17 Multivitamin/Iron/Folic Acid 1 tab PO DAILY 10/12/17 [Centrum Complete Multivit Tab] Heparin 5,000 units SC Q8 vial 10/19/17 Acetaminophen [Tylenol 325mg tab] 650 mg PO Q4H PRN 11/06/17 Acetaminophen [Tylenol 325mg tab] 650 mg PO Q4H PRN 11/06/17 Acetaminophen/Codeine 1 tab PO Q8 PRN 11/06/17 [Tylenol/Codeine 300 MG/30 MG] Alendronate [Fosamax] 70 mg PO MO 11/06/17 Calcium Carbonate/Vitamin D3 1 tab PO BID 11/06/17 [Caltrate 600 Plus D3 Tablet] Esomeprazole Magnesium [Nexium] 40 mg PO DAILY 11/06/17 Furosemide [Lasix] 40 mg PO DAILY 11/06/17 Insulin Regular [HumuLIN R] 2 - 6 unit SC AC 11/06/17 Irbesartan 150 mg PO DAILY 11/06/17 Lidocaine 5% [Lidoderm] 1 patch TD DAILY 11/06/17 Magnesium Hydroxide [Milk Of 30 ml PO DAILY PRN 11/06/17 Magnesia] Silver Sulfadiazine 1% 20 gm 1 appl TOP BID 11/06/17 [Silvadene 1% 20 gm] predniSONE [predniSONE Tab] 10 mg PO DAILY 11/06/17 - Allergies Allergies/Adverse Reactions: Allergies Allergy/AdvReac Type Severity Reaction Status Date / Time No Known Allergies Allergy Verified 11/06/17 16:50 Review of Systems Review Of Systems: ROS cannot be obtained secondary to pt's inabilty to answer questions. Physical Exam - Physical Exam Appears: Positive for: Uncomfortable (lethargic, arousable to voice, verbally responds but making non-sensical sounds) Eye Exam: Positive for: Normal appearance, EOMI, PERRL Cardiovascular/Chest: Positive for: Regular Rate, Rhythm, Other (tachypneic) Respiratory: Positive for: Decreased Breath Sounds, Wheezing Gastrointestinal/Abdominal: Positive for: Soft. Negative for: Tenderness Extremity: Positive for: Normal ROM, Other (moving extremities x 4) Neurologic/Psych: Positive for: Alert - Laboratory Results Result Diagrams: 11/11/17 04:30 11/11/17 04:30 - ECG O2 Sat by Pulse Oximetry: 98 Medical Decision Making Medical Decision Making: Presentation concerning for copd exacerbation. Duonebs and steroids ordered. BP 77/52. Family confirming DNR/DNI status at bedside ( and son). Will give 150cc IV bolus as prior 250cc bolus given on prior admission caused pulmonary edema and I cannot intubate patient and do not want to worsened her respiratory status. Cxray ordered. EKG ordered. ABG and labs ordered. ABG shows Ph:7.48. pc02:49, p02:78, lactate:0.7. Cxray negative for infiltrate. EKG shows NSR at 81bpm with pacs, LAD, RBBB, no STEMI. Trop elevated. Rectal aspirin ordered Dr. Bain, hospitalist to admit ICU considered for pressors due to hypotension. Spoke to family about goals of care. Spoke with son and with Dr. Bain at bedside. Family confirm that patient is DNR/DNI and would not want invasive measures such as central line and IV pressors. Requesting non-invasive measures such as hydration, antibiotics, duonebs as needed. Disposition - Clinical Impression Clinical Impression: COPD exacerbation, Lethargy, Hypotension, NSTEMI (non-ST elevated myocardial infarction) - Disposition Disposition Time: 19:00 Condition: GUARDED - Pt Status Changed To: Hospital Disposition Of: Inpatient - Admit Certification Admit to Inpatient:: After my assessment, the patient will require hospitalization for at least two midnights. This is because of the severity of symptoms shown, intensity of services needed, and/or the medical risk in this patient being treated as an outpatient.
[2017-11-06] MEDS ORDERED: Albuterol-Ipratrop 3 mg / 0.5 (3 ml) UD INH STA ×2 (17:30→17:31)
[2017-11-06] MEDS ORDERED: Albuterol-Ipratrop 3 mg / 0.5 (3 ml) UD ONE ×2 (17:43→20:18)
[2017-11-06 17:47] LABS: ABG ALLEN TEST YES; ARTERIAL BLOOD GAS HCO3 33.6 mmol/L (21-28); ARTERIAL BLOOD GAS O2 SAT 99.9 % (95-98); ARTERIAL BLOOD GAS PCO2 49 mm/Hg (35-45); ARTERIAL BLOOD GAS PH 7.48 (7.35-7.45); ARTERIAL BLOOD GAS PO2 78 mm/Hg (80-100)
[2017-11-06 17:47] LABS: BASO % 0.1 % (0.0-2.0); LYMPH # 0.9 K/uL (1.0-4.3); LYMPH % 8.7 % (20.0-40.0); MEAN CORPUSCULAR HEMOGLOBIN 29.4 pg (27.0-31.0); MEAN CORPUSCULAR HGB CONC 32.3 g/dL (33.0-37.0); MONO # 0.5 K/uL (0.0-0.8); MONO % 5.1 % (0.0-10.0); NEUT # 9.2 K/uL (1.8-7.0); NEUT % 86.1 % (50.0-75.0); PLATELET COUNT 120 K/uL (130-400); RBC 3.05 Mil/uL (3.80-5.20); RED CELL DISTRIBUTION WIDTH 18.4 % (11.5-14.5); WHITE BLOOD COUNT 10.7 K/uL (4.8-10.8)
[2017-11-06] MEDS: Sodium Chloride 0.9% 250 ML IV SCH ×2 (17:51→20:16)
[2017-11-06 18:37] LABS: ALBUMIN 2.8 g/dL (3.5-5.0); ALT/SGPT 32 U/L (9-52); AST/SGOT 29 U/L (14-36); BLOOD UREA NITROGEN 25 mg/dl (7-17); CALCIUM 9.7 mg/dL (8.4-10.2); CK-MB 0.91 ng/mL (0.0-3.38); GFR AFRICAN-AMERICAN > 60; GFR NON-AFRICAN AMERICAN 60; MAGNESIUM 1.6 MG/DL (1.6-2.3)
--- NOTE | 2017-11-06 18:51 | RAD ---
HISTORY: altered COMPARISON: Comparison is made to 10/15/2017 FINDINGS: LUNGS: Heterogeneous opacity at the left lower lobe may represent atelectasis or pneumonia. PLEURA: Blunting of the left costophrenic angle. CARDIOVASCULAR: Normal. OSSEOUS STRUCTURES: No significant abnormalities. VISUALIZED UPPER ABDOMEN: Normal. OTHER FINDINGS: None. IMPRESSION: Opacity at the left lower lobe may represent atelectasis or pneumonia. Re- demonstrated is blunting of the left costophrenic angle.
--- NOTE | 2017-11-06 19:41 | CP.PCM.HP ---
History of Present Illness - History of Present Illness History of Present Illness: CC: Lethargy This is an 82 year old female with a past medical history significant for COPD on home oxygen, essential hypertension, Type 2 diabetes mellitus controlled with insulin, history of CHF, anxiety, depression, with admission to [facility] in May with acute cholecystitis. At that time the patient and family opted for conservative management as she did not want to have surgery due to multiple comorbidities. She improved with antibiotics and IV fluids. Today, the patient came to the ED with altered mental status and decreased po intake. As per the son, the patient has not eaten or drank anything for the past two days at [place]. She is somnolent and unable to give ROS due to altered mental status. In the ED, she was noted to be hypotensive and is currently receiving fluid challenge. The family is opting for conservative management at this time with telemetry admission for fluids and antibiotics. She is DNR/DNI as previously documented; the family is also in agreement. She is limited treatment at this time as the family does not want aggressive measures such as a central line or pressors. Present on Admission - Present on Admission Any Indicators Present on Admission: No Review of Systems - Review of Systems Systems not reviewed;Unavailable: Altered Mental Status Past Patient History - Infectious Disease Hx of Infectious Diseases: None - Tetanus Immunizations Tetanus Immunization: Unknown - Past Medical History & Family History Past Medical History?: Yes - Past Social History Smoking Status: Former Smoker - CARDIAC Hx Congestive Heart Failure: Yes Hx Hypercholesterolemia: Yes Hx Hypertension: Yes - PULMONARY Hx Asthma: Yes Hx Chronic Obstructive Pulmonary Disease (COPD): Yes Hx Emphysema: Yes Hx Pneumonia: Yes - NEUROLOGICAL Hx Seizures: No - HEENT Hx HEENT Problems: No - RENAL Hx Chronic Kidney Disease: No - ENDOCRINE/METABOLIC Hx Hypothyroidism: Yes - HEMATOLOGICAL/ONCOLOGICAL Hx Anemia: Yes Hx Human Immunodeficiency Virus (HIV): No - INTEGUMENTARY Hx Dermatological Problems: No - MUSCULOSKELETAL/RHEUMATOLOGICAL Hx Arthritis: Yes Hx Rheumatoid Arthritis: Yes - GASTROINTESTINAL Hx Gastritis: Yes - GENITOURINARY/GYNECOLOGICAL Hx Genitourinary Disorders: Yes Hx Uterine Cancer: Yes Hx Urinary Tract Infection: Yes - PSYCHIATRIC Hx Anxiety: Yes Hx Depression: Yes - SURGICAL HISTORY Hx Appendectomy: Yes - ANESTHESIA Hx Anesthesia: Yes Hx Anesthesia Reactions: No Hx Malignant Hyperthermia: No Meds Allergies/Adverse Reactions: Allergies Allergy/AdvReac Type Severity Reaction Status Date / Time No Known Allergies Allergy Verified 11/06/17 16:50 Physical Exam - Additional Findings Additional findings: Physical exam: Constitutional- lethargic, somnolent, appears acutely ill, diaphoretic Head- NCAT, PERRL Eye- PERRL, EOMI ENT- normal exam, MMM. Neck- normal inspection, supple, no JVD Respiratory- + bilateral wheezes, no rales rhonchi Cardiovascular- RRR, +S1, +S2, systolic murmur GI/Abdominal- normal bowel sounds, soft, no mass, no hsm Skin- warm, dry Extremities Exam- normal capillary refill, normal inspection Neurological Exam- unable to be performed Psych- unable to be performed Results - Vital Signs Recent Vital Signs: Last Vital Signs Temp 98.3 F 11/06/17 16:46 Pulse 92 H 11/06/17 16:46 Resp 16 11/06/17 16:46 BP 113/46 L 11/06/17 16:46 Pulse Ox 98 11/06/17 18:52 - Labs Result Diagrams: 11/06/17 17:35 11/06/17 17:35 Labs: Laboratory Results - last 24 hr 11/06/17 11/06/17 11/06/17 17:35 17:35 17:40 WBC 10.7 RBC 3.05 L Hgb 9.0 L Hct 27.8 L MCV 91.0 D MCH 29.4 MCHC 32.3 L RDW 18.4 H Plt Count 120 L D MPV 8.0 Neut % (Auto) 86.1 H Lymph % (Auto) 8.7 L Sunflower % (Auto) 5.1 Eos % (Auto) 0.0 Baso % (Auto) 0.1 Neut # 9.2 H Lymph # 0.9 L Sunflower # 0.5 Eos # 0.0 Baso # 0.0 pCO2 49 H pO2 78 L HCO3 33.6 H ABG pH 7.48 H ABG Total CO2 38.0 H ABG O2 Saturation 99.9 H ABG Base Excess 11.2 H Roger Test Yes ABG Potassium 4.0 A-a O2 Difference 89.0 Glucose 231 H Lactate 0.7 FiO2 32.0 Sodium 134 133.0 Potassium 4.0 Chloride 94 L 100.0 Carbon Dioxide 34 H Anion Gap 10 BUN 25 H Creatinine 0.9 Est GFR ( Amer) > 60 Est GFR (Non-Af Amer) 60 Random Glucose 220 H Calcium 9.7 Phosphorus 4.5 Magnesium 1.6 Total Bilirubin 0.4 AST 29 ALT 32 Alkaline Phosphatase 75 Total Creatine Kinase 97 CK-MB (Mass) 0.91 Troponin I 1.6800 H* Total Protein 5.8 L Albumin 2.8 L Globulin 2.9 Albumin/Globulin Ratio 1.0 Arterial Blood Potassium 4.0 Influenza Typ A,B (EIA) 11/06/17 18:53 WBC RBC Hgb Hct MCV MCH MCHC RDW Plt Count MPV Neut % (Auto) Lymph % (Auto) Sunflower % (Auto) Eos % (Auto) Baso % (Auto) Neut # Lymph # Sunflower # Eos # Baso # pCO2 pO2 HCO3 ABG pH ABG Total CO2 ABG O2 Saturation ABG Base Excess Roger Test ABG Potassium A-a O2 Difference Glucose Lactate FiO2 Sodium Potassium Chloride Carbon Dioxide Anion Gap BUN Creatinine Est GFR ( Amer) Est GFR (Non-Af Amer) Random Glucose Calcium Phosphorus Magnesium Total Bilirubin AST ALT Alkaline Phosphatase Total Creatine Kinase CK-MB (Mass) Troponin I Total Protein Albumin Globulin Albumin/Globulin Ratio Arterial Blood Potassium Influenza Typ A,B (EIA) Negative for flu a/b Assessment & Plan - Assessment and Plan (Free Text) Plan: 1. NSTEMI with likely concomitant cardiogenic shock Admit to telemetry floor Consultation with cardiology Rectal ASA given in ED Serial troponin levels EKG: NSR 81 bpm with PAC, LAC, RBBB, nonSTEMI Troponin 1.6800 EKG in AM Lovenox 1 mg/kg for ACS anticoagulation Patient DNR/DNI 2. Chronic CHF, systolic and diastolic dysfunction ECHO done last year showed EF 35% hold lasix due to hypotension Hold ARB due to hypotension no BB due to COPD/hypotension 3. Acute on Chronic Respiratory Failure with Hypoxia and Hypercapnea sec to COPD exacerbation patient is on home oxygen CXR- no infiltrate as per me, shows some mild pulm edema, waiting for final read consultation with Dr. Greene 4. Altered mental status Likely metabolic encephalopathy related to hypercapnia, felt less likely to be related to infectious cause Cont to monitor Fall precautions 11. DM regular insulin sliding scale coverage 13. Anemia of chronic disease stable, Hg 9.0 15. Anxiety/ depression on trazodone and temazepam at home NPO status for now 12. DVT prophylaxis Lovenox 1 mg/kg
[2017-11-06] MEDS ORDERED: Insulin Regular 100 units/ml ONE (20:08)
[2017-11-06 20:09] LABS: URINE AMORPHOUS SEDIMENT RARE /ul (<OCC); URINE BACTERIA FEW (<OCC); URINE BILIRUBIN NEGATIVE (NEGATIVE); URINE BLOOD NEGATIVE (NEGATIVE); URINE CLARITY CLOUDY (Clear); URINE COLOR YELLOW (YELLOW); URINE GLUCOSE (UA) NEG (Normal); URINE LEUKOCYTE ESTERASE MOD Leu/uL (Negative); URINE NITRATE NEGATIVE (NEGATIVE); URINE PROTEIN 30 mg/dL (NEGATIVE); URINE UROBILINOGEN 0.2-1.0 mg/dL (0.2-1.0)
[2017-11-06] MEDS: Albuterol-Ipratrop 3 mg / 0.5 (3 ml) UD INH SCH (20:18)
[2017-11-06] MEDS: Insulin Regular 100 units/ml SC SCH (20:19)
[2017-11-06 21:09] LABS: BANDS 3 % (0-2); LYMPHOCYTE 10 % (20-50); MONOCYTE 5 % (0-10); NEUTROPHIL 82 % (42-75); TOTAL CELLS COUNTED 100
[2017-11-06 21:10] LABS: ANISOCYTOSIS MODERATE; LARGE PLATELETS PRESENT; PLATELET ESTIMATE NORMAL (NORMAL)
[2017-11-06 21:11] LABS: BURR CELLS SLIGHT
[2017-11-06] MEDS ORDERED: Sodium Chloride 0.9% 1,000 ML IV SCH (21:45)
[2017-11-06] MEDS: Enoxaparin 60 mg Syringe SC SCH (22:58)
[2017-11-07] MEDS ORDERED: methylPREDNISolone 60 MG in Sodium Chloride 0.9% 50 ML IVPB SCH (01:00)
[2017-11-07] MEDS ORDERED: Magnesium Hydroxide Susp 30 ml UD PO PRN (01:21)
[2017-11-07] MEDS ORDERED: Albuterol-Ipratrop 3 mg / 0.5 (3 ml) UD IH PRN (01:24)
[2017-11-07] MEDS: Insulin Regular 100 units/ml SC SCH ×4 (02:13→19:41)
[2017-11-07] MEDS: Albuterol-Ipratrop 3 mg / 0.5 (3 ml) UD INH SCH ×3 (07:25→15:02)
[2017-11-07 07:34] LABS: BLOOD UREA NITROGEN 33 mg/dl (7-17); CALCIUM 9.5 mg/dL (8.4-10.2); GFR AFRICAN-AMERICAN > 60; GFR NON-AFRICAN AMERICAN > 60
[2017-11-07 07:52] LABS: BASO % 0.1 % (0.0-2.0); EOS % 0.1 % (0.0-4.0); HEMOGLOBIN 9.4 g/dL (12.0-16.0); LYMPH # 0.4 K/uL (1.0-4.3); MEAN CORPUSCULAR HEMOGLOBIN 30.2 pg (27.0-31.0); MEAN CORPUSCULAR HGB CONC 33.2 g/dL (33.0-37.0); MEAN PLATELET VOLUME 8.6 fl (7.2-11.7); MONO # 0.1 K/uL (0.0-0.8); MONO % 1.8 % (0.0-10.0); NEUT # 5.6 K/uL (1.8-7.0); PLATELET COUNT 122 K/uL (130-400); RBC 3.11 Mil/uL (3.80-5.20); RED CELL DISTRIBUTION WIDTH 18.3 % (11.5-14.5); WHITE BLOOD COUNT 6.1 K/uL (4.8-10.8)
[2017-11-07] MEDS: Lidocaine 5% Patch TD SCH (09:13)
--- NOTE | 2017-11-07 09:14 | CP.PCM.CON ---
History of Present Illness - History of Present Illness History of Present Illness: CC: Lethargy This is an 82 year old female with a past medical history significant for COPD on home oxygen, essential hypertension, Type 2 diabetes mellitus controlled with insulin, history of CHF, anxiety, depression, with admission to [facility] in May with acute cholecystitis. At that time the patient and family opted for conservative management as she did not want to have surgery due to multiple comorbidities. She improved with antibiotics and IV fluids. the patient came to the ED with altered mental status and decreased po intake. As per the son, the patient has not eaten or drank anything for the past two days at [place]. She is somnolent and unable to give ROS due to altered mental status. The family is opting for conservative management at this time with telemetry admission for fluids and antibiotics. She is DNR/DNI as previously documented; the family is also in agreement. She is limited treatment at this time as the family does not want aggressive measures such as a central line or pressors. Pt denies any chest pain Troponin: + 0.4640 EKG: CRBBB No acute changes Past Patient History - Infectious Disease Hx of Infectious Diseases: None - Tetanus Immunizations Tetanus Immunization: Unknown - Past Medical History & Family History Past Medical History?: Yes - Past Social History Smoking Status: Former Smoker - CARDIAC Hx Congestive Heart Failure: Yes Hx Hypercholesterolemia: Yes Hx Hypertension: Yes - PULMONARY Hx Asthma: Yes Hx Chronic Obstructive Pulmonary Disease (COPD): Yes Hx Emphysema: Yes Hx Pneumonia: Yes - NEUROLOGICAL Hx Seizures: No - HEENT Hx HEENT Problems: No - RENAL Hx Chronic Kidney Disease: No - ENDOCRINE/METABOLIC Hx Hypothyroidism: Yes - HEMATOLOGICAL/ONCOLOGICAL Hx Anemia: Yes Hx Human Immunodeficiency Virus (HIV): No - INTEGUMENTARY Hx Dermatological Problems: No - MUSCULOSKELETAL/RHEUMATOLOGICAL Hx Arthritis: Yes Hx Falls: Yes Hx Rheumatoid Arthritis: Yes - GASTROINTESTINAL Hx Gastritis: Yes - GENITOURINARY/GYNECOLOGICAL Hx Genitourinary Disorders: Yes - PSYCHIATRIC Hx Anxiety: Yes Hx Depression: Yes Hx Substance Use: No - SURGICAL HISTORY Hx Appendectomy: Yes - ANESTHESIA Hx Anesthesia: Yes Hx Anesthesia Reactions: No Hx Malignant Hyperthermia: No Has any member of the family had a problem w/ anesthesia?: No Meds Allergies/Adverse Reactions: Allergies Allergy/AdvReac Type Severity Reaction Status Date / Time No Known Allergies Allergy Verified 11/06/17 16:50 - Medications Medications: Current Medications Acetaminophen (Tylenol 325mg Tab) 650 mg PO Q4H PRN PRN Reason: Pain, Mild (1-3) Acetaminophen (Tylenol 325mg Tab) 650 mg PO Q4H PRN PRN Reason: TEMP >100 Albuterol/Ipratropium (Duoneb 3 Mg/0.5 Mg (3 Ml) Ud) 3 ml INH RQID [facility] Last Admin: 11/07/17 07:25 Dose: 3 ml Alendronate Sodium (Fosamax) 70 mg PO MO ZIA Aspirin (Aspirin Supp) 300 mg [place] DAILY ZIA Enoxaparin Sodium (Lovenox) 60 mg SC Q12 [facility] PRN Reason: Protocol Last Admin: 11/06/17 22:58 Dose: 60 mg Glipizide (Glucotrol Xl) 5 mg PO BRK [facility] Sodium Chloride (Sodium Chloride 0.9%) 1,000 mls @ 75 mls/hr IV .[id number] [facility] Stop: 11/07/17 11:04 Last Admin: 11/06/17 22:19 Dose: 75 mls/hr Insulin Human Regular (Humulin R) 0 units SC Q6H [facility] PRN Reason: Protocol Last Admin: 11/07/17 06:33 Dose: 4 units Lidocaine (Lidoderm) 1 ea TD DAILY [facility] Magnesium Hydroxide (Milk Of Magnesia) 30 ml PO DAILY PRN PRN Reason: Constipation Methylprednisolone (Solu-Medrol) 60 mg IV Q8 [facility] Last Admin: 11/07/17 00:36 Dose: 60 mg Montelukast Sodium (Singulair) 10 mg PO HS [facility] Temazepam (Restoril) 30 mg PO HS [facility]IA Trazodone HCl (Desyrel) 150 mg PO HS [facility] Results - Vital Signs Recent Vital Signs: Last Vital Signs Temp 98.1 F 11/07/17 08:26 Pulse 89 11/07/17 08:26 Resp 18 11/07/17 08:26 BP 122/64 11/07/17 08:26 Pulse Ox 93 L 11/07/17 05:00 - Labs Result Diagrams: 11/07/17 06:30 11/07/17 06:30 Labs: Laboratory Results - last 24 hr 11/06/17 11/06/17 11/06/17 00:19 17:35 17:35 WBC 10.7 RBC 3.05 L Hgb 9.0 L Hct 27.8 L MCV 91.0 D MCH 29.4 MCHC 32.3 L RDW 18.4 H Plt Count 120 L D MPV 8.0 Neut % (Auto) 86.1 H Lymph % (Auto) 8.7 L [place] % (Auto) 5.1 Eos % (Auto) 0.0 Baso % (Auto) 0.1 Neut # 9.2 H Lymph # 0.9 L [place] # 0.5 Eos # 0.0 Baso # 0.0 Neutrophils % (Manual) 82 H Band Neutrophils % 3 H Lymphocytes % (Manual) 10 L Monocytes % (Manual) 5 Platelet Estimate Normal Large Platelets Present Anisocytosis (manual) Moderate Macrocytosis (manual) Slight [place] Cells Slight pCO2 pO2 HCO3 ABG pH ABG Total CO2 ABG O2 Saturation ABG Base Excess Roger Test ABG Potassium A-a O2 Difference Glucose Lactate FiO2 Sodium 134 Potassium 4.0 Chloride 94 L Carbon Dioxide 34 H Anion Gap 10 BUN 25 H Creatinine 0.9 Est GFR ( Amer) > 60 Est GFR (Non-Af Amer) 60 POC Glucose (mg/dL) Random Glucose 220 H Calcium 9.7 Phosphorus 4.5 Magnesium 1.6 Total Bilirubin 0.4 AST 29 ALT 32 Alkaline Phosphatase 75 Total Creatine Kinase 97 CK-MB (Mass) 0.91 Troponin I 0.7690 H* 1.6800 H* Total Protein 5.8 L Albumin 2.8 L Globulin 2.9 Albumin/Globulin Ratio 1.0 Arterial Blood Potassium Urine Color Urine Clarity Urine pH Ur Specific [place] Urine Protein Urine Glucose (UA) Urine Ketones Urine Blood Urine Nitrate Urine Bilirubin Urine Urobilinogen Ur Leukocyte Esterase Urine RBC (Auto) Urine Microscopic WBC Amorphous Sediment Urine Bacteria Hyaline Casts Influenza Typ A,B (EIA) 11/06/17 11/06/17 11/06/17 17:40 18:53 19:49 WBC RBC Hgb Hct MCV MCH MCHC RDW Plt Count MPV Neut % (Auto) Lymph % (Auto) [place] % (Auto) Eos % (Auto) Baso % (Auto) Neut # Lymph # [place] # Eos # Baso # Neutrophils % (Manual) Band Neutrophils % Lymphocytes % (Manual) Monocytes % (Manual) Platelet Estimate Large Platelets Anisocytosis (manual) Macrocytosis (manual) [place] Cells pCO2 49 H pO2 78 L HCO3 33.6 H ABG pH 7.48 H ABG Total CO2 38.0 H ABG O2 Saturation 99.9 H ABG Base Excess 11.2 H Roger Test Yes ABG Potassium 4.0 A-a O2 Difference 89.0 Glucose 231 H Lactate 0.7 FiO2 32.0 Sodium 133.0 Potassium Chloride 100.0 Carbon Dioxide Anion Gap BUN Creatinine Est GFR ( Amer) Est GFR (Non-Af Amer) POC Glucose (mg/dL) Random Glucose Calcium Phosphorus Magnesium Total Bilirubin AST ALT Alkaline Phosphatase Total Creatine Kinase CK-MB (Mass) Troponin I Total Protein Albumin Globulin Albumin/Globulin Ratio Arterial Blood Potassium 4.0 Urine Color Yellow Urine Clarity Cloudy Urine pH 7.0 Ur Specific [place] 1.006 Urine Protein 30 Urine Glucose (UA) Neg Urine Ketones Negative Urine Blood Negative Urine Nitrate Negative Urine Bilirubin Negative Urine Urobilinogen 0.2-1.0 Ur Leukocyte Esterase Mod Urine RBC (Auto) 3 Urine Microscopic WBC 59 H Amorphous Sediment Rare H Urine Bacteria Few H Hyaline Casts 3-5 H Influenza Typ A,B (EIA) Negative for flu a/b 11/06/17 11/06/17 11/07/17 20:12 22:13 01:21 WBC RBC Hgb Hct MCV MCH MCHC RDW Plt Count MPV Neut % (Auto) Lymph % (Auto) [place] % (Auto) Eos % (Auto) Baso % (Auto) Neut # Lymph # [place] # Eos # Baso # Neutrophils % (Manual) Band Neutrophils % Lymphocytes % (Manual) Monocytes % (Manual) Platelet Estimate Large Platelets Anisocytosis (manual) Macrocytosis (manual) [place] Cells pCO2 pO2 HCO3 ABG pH ABG Total CO2 ABG O2 Saturation ABG Base Excess Roger Test ABG Potassium A-a O2 Difference Glucose Lactate FiO2 Sodium Potassium Chloride Carbon Dioxide Anion Gap BUN Creatinine Est GFR ( Amer) Est GFR (Non-Af Amer) POC Glucose (mg/dL) 290 H 326 H 280 H Random Glucose Calcium Phosphorus Magnesium Total Bilirubin AST ALT Alkaline Phosphatase Total Creatine Kinase CK-MB (Mass) Troponin I Total Protein Albumin Globulin Albumin/Globulin Ratio Arterial Blood Potassium Urine Color Urine Clarity Urine pH Ur Specific [place] Urine Protein Urine Glucose (UA) Urine Ketones Urine Blood Urine Nitrate Urine Bilirubin Urine Urobilinogen Ur Leukocyte Esterase Urine RBC (Auto) Urine Microscopic WBC Amorphous Sediment Urine Bacteria Hyaline Casts Influenza Typ A,B (EIA) 11/07/17 11/07/17 11/07/17 05:11 06:30 06:30 WBC 6.1 RBC 3.11 L Hgb 9.4 L Hct 28.3 L MCV 91.0 MCH 30.2 MCHC 33.2 RDW 18.3 H Plt Count 122 L MPV 8.6 Neut % (Auto) 91.0 H Lymph % (Auto) 7.0 L [place] % (Auto) 1.8 Eos % (Auto) 0.1 Baso % (Auto) 0.1 Neut # 5.6 Lymph # 0.4 L [place] # 0.1 Eos # 0.0 Baso # 0.0 Neutrophils % (Manual) Band Neutrophils % Lymphocytes % (Manual) Monocytes % (Manual) Platelet Estimate Large Platelets Anisocytosis (manual) Macrocytosis (manual) [place] Cells pCO2 pO2 HCO3 ABG pH ABG Total CO2 ABG O2 Saturation ABG Base Excess Roger Test ABG Potassium A-a O2 Difference Glucose Lactate FiO2 Sodium 139 Potassium 3.7 Chloride 98 Carbon Dioxide 34 H Anion Gap 11 BUN 33 H Creatinine 0.8 Est GFR ( Amer) > 60 Est GFR (Non-Af Amer) > 60 POC Glucose (mg/dL) 288 H Random Glucose 269 H Calcium 9.5 Phosphorus Magnesium Total Bilirubin AST ALT Alkaline Phosphatase Total Creatine Kinase CK-MB (Mass) Troponin I Total Protein Albumin Globulin Albumin/Globulin Ratio Arterial Blood Potassium Urine Color Urine Clarity Urine pH Ur Specific [place] Urine Protein Urine Glucose (UA) Urine Ketones Urine Blood Urine Nitrate Urine Bilirubin Urine Urobilinogen Ur Leukocyte Esterase Urine RBC (Auto) Urine Microscopic WBC Amorphous Sediment Urine Bacteria Hyaline Casts Influenza Typ A,B (EIA) 11/07/17 06:30 WBC RBC Hgb Hct MCV MCH MCHC RDW Plt Count MPV Neut % (Auto) Lymph % (Auto) [place] % (Auto) Eos % (Auto) Baso % (Auto) Neut # Lymph # [place] # Eos # Baso # Neutrophils % (Manual) Band Neutrophils % Lymphocytes % (Manual) Monocytes % (Manual) Platelet Estimate Large Platelets Anisocytosis (manual) Macrocytosis (manual) [place] Cells pCO2 pO2 HCO3 ABG pH ABG Total CO2 ABG O2 Saturation ABG Base Excess Roger Test ABG Potassium A-a O2 Difference Glucose Lactate FiO2 Sodium Potassium Chloride Carbon Dioxide Anion Gap BUN Creatinine Est GFR ( Amer) Est GFR (Non-Af Amer) POC Glucose (mg/dL) Random Glucose Calcium Phosphorus Magnesium Total Bilirubin AST ALT Alkaline Phosphatase Total Creatine Kinase CK-MB (Mass) Troponin I 0.4640 H* Total Protein Albumin Globulin Albumin/Globulin Ratio Arterial Blood Potassium Urine Color Urine Clarity Urine pH Ur Specific [place] Urine Protein Urine Glucose (UA) Urine Ketones Urine Blood Urine Nitrate Urine Bilirubin Urine Urobilinogen Ur Leukocyte Esterase Urine RBC (Auto) Urine Microscopic WBC Amorphous Sediment Urine Bacteria Hyaline Casts Influenza Typ A,B (EIA) Assessment & Plan (1) Altered mental status, unspecified Status: Acute (2) Elevated troponin Assessment and Plan: Possibly 2* to NSTEMI pt is DNR family wants no aggressive treatment continue supportive care Status: Acute (3) COPD exacerbation Status: Acute
[2017-11-07] MEDS: Enoxaparin 60 mg Syringe SC SCH ×2 (09:15→21:14)
[2017-11-07] MEDS: GlipiZIDE 5 mg SR Tab PO SCH (09:15)
--- NOTE | 2017-11-07 09:26 | CARD ---
APPROVED REPORT EKG Measurement Heart [id number] <Conclusion> Sinus rhythm with premature atrial complexes Left axis deviation Right bundle branch block Abnormal ECG
--- NOTE | 2017-11-07 10:16 | CP.PCM.PN ---
Subjective - Date & Time of Evaluation Date of Evaluation: 11/07/17 Time of Evaluation: 09:00 - Subjective Subjective: No fever SOB better no wheezing denies CP at present no abd pain Objective - Vital Signs/Intake and Output Vital Signs (last 24 hours): Temp Pulse Resp BP Pulse Ox 98.1 F 89 18 122/64 93 L 11/07/17 08:26 11/07/17 08:26 11/07/17 08:26 11/07/17 08:26 11/07/17 05:00 - Medications Medications: Current Medications Acetaminophen (Tylenol 325mg Tab) 650 mg PO Q4H PRN PRN Reason: Pain, Mild (1-3) Acetaminophen (Tylenol 325mg Tab) 650 mg PO Q4H PRN PRN Reason: TEMP >100 Albuterol/Ipratropium (Duoneb 3 Mg/0.5 Mg (3 Ml) Ud) 3 ml INH RQID [facility] Last Admin: 11/07/17 07:25 Dose: 3 ml Alendronate Sodium (Fosamax) 70 mg PO MO [facility] Aspirin (Aspirin Supp) 300 mg [place] DAILY [facility] Enoxaparin Sodium (Lovenox) 60 mg SC Q12 [facility] PRN Reason: Protocol Last Admin: 11/07/17 09:15 Dose: 60 mg Glipizide (Glucotrol Xl) 5 mg PO BRK [facility] Last Admin: 11/07/17 09:15 Dose: 5 mg Sodium Chloride (Sodium Chloride 0.9%) 1,000 mls @ 75 mls/hr IV .[id number] [facility] Stop: 11/07/17 11:04 Last Admin: 11/06/17 22:19 Dose: 75 mls/hr Insulin Human Regular (Humulin R) 0 units SC Q6H [facility] PRN Reason: Protocol Last Admin: 11/07/17 06:33 Dose: 4 units Lidocaine (Lidoderm) 1 ea TD DAILY [facility] Last Admin: 11/07/17 09:13 Dose: 1 ea Magnesium Hydroxide (Milk Of Magnesia) 30 ml PO DAILY PRN PRN Reason: Constipation Methylprednisolone (Solu-Medrol) 60 mg IV Q8 [facility] Last Admin: 11/07/17 09:14 Dose: 60 mg Montelukast Sodium (Singulair) 10 mg PO HS [facility] Temazepam (Restoril) 30 mg PO HS [facility] Trazodone HCl (Desyrel) 150 mg PO HS [facility] - Labs Labs: 11/07/17 06:30 11/07/17 06:30 - Constitutional Appears: No Acute Distress, Chronically Ill - Head Exam Head Exam: NORMAL INSPECTION, NORMOCEPHALIC - Eye Exam Eye Exam: EOMI, Normal appearance Pupil Exam: NORMAL ACCOMODATION - ENT Exam ENT Exam: Mucous Membranes Moist, Normal External Ear Exam - Neck Exam Neck Exam: Full ROM. absent: Meningismus - Respiratory Exam Respiratory Exam: Rales, Rhonchi. absent: Respiratory Distress - Cardiovascular Exam Cardiovascular Exam: REGULAR RHYTHM, +S1, +S2 - GI/Abdominal Exam GI & Abdominal Exam: Soft, Normal Bowel Sounds. absent: Tenderness - Extremities Exam Extremities Exam: Full ROM, Normal Capillary Refill. absent: Calf Tenderness, Pedal Edema - Back Exam Back Exam: Full ROM. absent: CVA tenderness (L), CVA tenderness (R) - Neurological Exam Neurological Exam: Alert, Awake, CN II-XII Intact, Oriented x3 - Psychiatric Exam Psychiatric exam: Normal Affect, Normal Mood - Skin Skin Exam: Dry, Pallor, Warm Assessment and Plan - Assessment and Plan (Free Text) Assessment: 1. NSTEMI [id number] elevated however trending down Pt and family do not want any aggressive treatment cont medical mgt with ASA hold BB, MIRTA for ow due to low BP Consultation with cardiology EKG: NSR 81 bpm with PAC, LAC, RBBB, nonSTEMI Lovenox 1 mg/kg for ACS anticoagulation Patient DNR/DNI 2. Chronic CHF, systolic and diastolic dysfunction ECHO done last year showed EF 35% hold lasix due to hypotension Hold ARB due to hypotension no BB due to COPD/hypotension 3. Acute on Chronic Respiratory Failure with Hypoxia and Hypercapnea sec to COPD exacerbation patient is on home oxygen CXR- atelectasis consultation with Dr. Greene cont IV Solumedrol cont IV Levaquin 4. Altered mental status Likely metabolic encephalopathy related to hypercapnia, felt less likely to be related to infectious cause Cont to monitor Fall precautions 5. DM type II regular insulin sliding scale coverage restart Levemir 6. Anemia of chronic disease stable, Hg 9.0 7. Anxiety/ depression on trazodone and temazepam at home 8. DVT prophylaxis Lovenox 1 mg/kg
[2017-11-07 11:05] LABS: BANDS 5 % (0-2); LYMPHOCYTE 6 % (20-50); MONOCYTE 3 % (0-10); NEUTROPHIL 86 % (42-75); TOTAL CELLS COUNTED 100
[2017-11-07 11:06] LABS: ANISOCYTOSIS SLIGHT; PLATELET ESTIMATE SLIGHTLY DECREASED (NORMAL)
[2017-11-07 11:07] LABS: LARGE PLATELETS PRESENT; OVALOCYTES SLIGHT; POIKILOCYTOSIS SLIGHT; TOXIC GRANULATION PRESENT
[2017-11-07] MEDS ORDERED: Aspirin 325 mg EC Tablets PO SCH (12:00)
[2017-11-07] MEDS ORDERED: Sodium Chloride 3% for Inhalation 4 ML VIAL.NEB IH PRN (12:36)
[2017-11-07] MEDS ORDERED: levoFLOXacin 500 mg in D5W 500 MG/100 ML BAG IVPB ONE (12:45)
--- NOTE | 2017-11-07 15:24 | CON ---
DATE: HISTORY OF PRESENT ILLNESS: Ms. Reeves is an 82-year-old female, who was admitted from the emergency room via [facility] because of lethargy on the day of admission. She is seen at bedside as awake, alert and oriented. She was admitted with acute respiratory failure due to acute exacerbation of chronic obstructive pulmonary disease. She is well known to me from prior admissions and has a history of chronic obstructive pulmonary disease, on home oxygen. She is also diabetic, history of congestive heart failure, anxiety disorder, cholecystitis. FAMILY HISTORY: Noncontributory. SOCIAL HISTORY: Presently, she resides at [facility] for subacute care. PHYSICAL EXAMINATION: GENERAL: The patient is awake, alert and oriented to person, place and time. VITAL SIGNS: Remarkable for blood pressure of 113/61 with a pulse of 102, respiratory rate is 18-20 per minute. She is afebrile. O2 sat is 83% on 2 L nasal cannula. SKIN: Shows fair turgor. HEENT: Pupils equal, reactive to light and accommodation. Mouth shows fair hygiene. LUNGS: Fair aeration bilaterally with some basal dullness. HEART: S1, S2. ABDOMEN: Soft, nontender. No organomegaly. EXTREMITIES: Shows no edema or cyanosis. CENTRAL NERVOUS SYSTEM: The patient is awake, alert and oriented. LABORATORY DATA: WBC 6.1, hemoglobin 9.4, platelet count of 122,000. Sodium 139, potassium 3.7, BUN 33, creatinine 0.8, troponin 0.4640. Arterial blood gas that was done on FIO2 of 32%, pH 7.48, pCO2 of 49, pO2 of 78, bicarbonate of 33.6, O2 sat of 99.9%. Chest x-ray is remarkable for heterogenous opacities at the left lower lobe, which may represent atelectasis or pneumonia. IMPRESSION: Lethargy, probably secondary to respiratory failure due to acute exacerbation of chronic obstructive pulmonary disease with superimposed pneumonia, left base. The patient does not want aggressive intervention in the case of cardiac or pulmonary arrest. PLAN: The plan is obtain sputum for Gram-stain and cultures. Maintain an oxygen low-flow, aerosolized bronchodilators. We will maintain O2 sat more than 80%. Continue therapy as ordered. We will continue to follow with you. Barron Greene MD [facility] # [phone]
--- NOTE | 2017-11-07 19:26 | PCM.RRT ---
SEASONAL CLERK Nurse Assessment - Situation Location: [address] [place] [address] Room Number: 403-1 SEASONAL CLERK Reason for Call: O2 Saturation below 90% SEASONAL CLERK Called By: RN - IV IV Inserted during SEASONAL CLERK?: No - Respiratory Oxygen Delivery Method: BiPAP Received Nebulizer Treatments: No Was the Patient Ventilated with Bag/Mask 100% O2?: No Secretions Suctioned?: No Was the Patient Intubated?: No Was the Patient Placed on a Ventilator?: No - Ventilator Settings Ventilator Respiratory Rate Settin Ventilator Tidal Volume Settin Peak Flow: 0 - Medication Medications Administered During SEASONAL CLERK: Lasix 40mg IV x1 - Diagnostic Test Ordered EKG: No Chest X-Ray: No CT Scan: No CPR started during SEASONAL CLERK?: No - Vital Signs Vital Signs: Rapid Response Vital Sign Blood Pressure 160/60 Pulse Rate 129 Respiratory Rate 34 Temperature 98 F Oxygen Saturation 81 - Time SEASONAL CLERK Ended Time SEASONAL CLERK Ended: 19:14 - Vital Signs at end of SEASONAL CLERK Vital Signs at end of SEASONAL CLERK: Rapid Response End Vital Sign Blood Pressure 130/52 Pulse Rate 123 Respiratory Rate 28 Temperature 98 F O2 Sat by Pulse Oximetry 98 - Recommendations SEASONAL CLERK Level of Care Recommendations: Remain in current setting I.Reason for SEASONAL CLERK - A) Acute Change in Patient: (Select all that apply): Acute change in SpO2 less - Neurological Status (Select all that apply): Alert, Responsive, Oriented, Verbal, Follows Commands - Respiratory Oxygen Delivery Method: Nasal Cannula @L/min Oxygen Flow Rate: 4 - Constitutional Appears: In Acute Distress, Chronically Ill - Head Head Exam: ATRAUMATIC, NORMAL INSPECTION, NORMOCEPHALIC - Respiratory Exam Respiratory Exam: Accessory Muscle Use, Rales, Respiratory Distress - Cardiovascular Exam Cardiovascular Exam: Tachycardia, REGULAR RHYTHM, +S1, +S2 - GI/Abdominal Exam GI & Abdominal Exam: Soft, Normal Bowel Sounds. absent: Tenderness - Neurological Exam Neurological Exam: Alert, Awake, Oriented x3 - Extremities Exam Extremities Exam: Full ROM, Normal Capillary Refill Plan - Assessment of Findings&Treatment Plan Acute on Chronic Respiratory Failure, hypoxic, hypercapneic likely sec to CHF exacerbation and COPD exacerbation - pt tachypneic, tachycardic, accessory muscle use, rales on exam -pt just received Duoneb treatment -BP 160/96 IR=[id number] -denies CP -Pt placed on Bipap 12/6/12/100% -Lasix 40mg IV stat
[2017-11-07] MEDS ORDERED: Insulin Detemir 100 Units/ml Inj SC SCH (22:00)
[2017-11-07] MEDS: Levalbuterol 1.25 MG/3 ML Inhal Soln UD INH SCH (23:54)
[2017-11-08] MEDS: Insulin Regular 100 units/ml SC SCH ×5 (01:30→21:49)
[2017-11-08] MEDS: Levalbuterol 1.25 MG/3 ML Inhal Soln UD INH SCH ×2 (07:39→15:49)
[2017-11-08 08:01] LABS: HEMOGLOBIN 8.4 g/dL (12.0-16.0); MEAN CELL VOLUME 89.3 fl (81.0-99.0); MEAN CORPUSCULAR HGB CONC 33.6 g/dL (33.0-37.0); RBC 2.8 Mil/uL (3.80-5.20); RED CELL DISTRIBUTION WIDTH 18.6 % (11.5-14.5)
[2017-11-08] MEDS: GlipiZIDE 5 mg SR Tab PO SCH (08:11)
[2017-11-08 08:19] LABS: BLOOD UREA NITROGEN 33 mg/dl (7-17); GFR AFRICAN-AMERICAN > 60; GFR NON-AFRICAN AMERICAN 60; HDL CHOLESTEROL 22 MG/DL (30-70)
[2017-11-08 08:30] LABS: LDL CHOLESTEROL 73 mg/dL (0-129)
[2017-11-08 08:37] LABS: WHITE BLOOD COUNT 7.1 K/uL (4.8-10.8)
[2017-11-08] MEDS: Lidocaine 5% Patch TD SCH (09:12)
[2017-11-08] MEDS: Enoxaparin 60 mg Syringe SC SCH ×2 (09:13→21:12)
--- NOTE | 2017-11-08 09:40 | CP.PCM.PN ---
Subjective - Date & Time of Evaluation Date of Evaluation: 11/08/17 Time of Evaluation: 08:45 - Subjective Subjective: Pt on High Flow Oxygen no fever SOB better denies CP no abd pain Objective - Vital Signs/Intake and Output Vital Signs (last 24 hours): Temp Pulse Resp BP Pulse Ox 97.2 F L 88 18 127/76 99 11/08/17 08:27 11/08/17 09:10 11/08/17 08:27 11/08/17 09:14 11/08/17 08:27 - Medications Medications: Current Medications Acetaminophen (Tylenol 325mg Tab) 650 mg PO Q4H PRN PRN Reason: Pain, Mild (1-3) Acetaminophen (Tylenol 325mg Tab) 650 mg PO Q4H PRN PRN Reason: TEMP >100 Aspirin (Ecotrin) 81 mg PO DAILY [facility] Last Admin: 11/08/17 09:11 Dose: 81 mg Enoxaparin Sodium (Lovenox) 60 mg SC Q12 [facility] PRN Reason: Protocol Last Admin: 11/08/17 09:13 Dose: 60 mg Furosemide (Lasix) 40 mg PO DAILY [facility] Last Admin: 11/08/17 09:14 Dose: 40 mg Glipizide (Glucotrol Xl) 5 mg PO BRK [facility] Last Admin: 11/08/17 08:11 Dose: 5 mg Levofloxacin/Dextrose (Levaquin 250mg) 250 mg in 50 mls @ 50 mls/hr IVPB DAILY [facility] Insulin Detemir (Levemir) 10 units SC [facility] Last Admin: 11/07/17 22:00 Dose: 10 u Insulin Human Regular (Humulin R) 0 units SC Q6H [facility] PRN Reason: Protocol Last Admin: 11/08/17 06:53 Dose: 6 units Levalbuterol HCl (Xopenex) 1.25 mg INH RQ8 [facility] Last Admin: 11/08/17 07:39 Dose: 1.25 mg Lidocaine (Lidoderm) 1 ea TD DAILY [facility] Last Admin: 11/08/17 09:12 Dose: 1 ea Magnesium Hydroxide (Milk Of Magnesia) 30 ml PO DAILY PRN PRN Reason: Constipation Methylprednisolone (Solu-Medrol) 60 mg IV Q8 [facility] Last Admin: 11/08/17 09:13 Dose: 60 mg Montelukast Sodium (Singulair) 10 mg PO HS [facility] Last Admin: 12/30/17 21:21 Dose: 10 mg Temazepam (Restoril) 30 mg PO HS [facility] Last Admin: 11/07/17 23:42 Dose: 30 mg Trazodone HCl (Desyrel) 150 mg PO [facility] Last Admin: 11/07/17 21:15 Dose: 150 mg Verapamil HCl (Calan Tab) 120 mg PO BID [facility] Last Admin: 11/08/17 09:10 Dose: 120 mg - Labs Labs: 11/08/17 06:30 11/08/17 06:30 - Constitutional Appears: No Acute Distress, Chronically Ill - Head Exam Head Exam: NORMAL INSPECTION, NORMOCEPHALIC - Eye Exam Eye Exam: EOMI, Normal appearance Pupil Exam: NORMAL ACCOMODATION - ENT Exam ENT Exam: Mucous Membranes Moist, Normal External Ear Exam - Neck Exam Neck Exam: Full ROM. absent: Meningismus - Respiratory Exam Respiratory Exam: Rales, Rhonchi. absent: Respiratory Distress no wheezing - Cardiovascular Exam Cardiovascular Exam: REGULAR RHYTHM, +S1, +S2 - GI/Abdominal Exam GI & Abdominal Exam: Soft, Normal Bowel Sounds. absent: Tenderness - Extremities Exam Extremities Exam: Full ROM, Normal Capillary Refill. absent: Calf Tenderness, Pedal Edema - Back Exam Back Exam: Full ROM. absent: CVA tenderness (L), CVA tenderness (R) - Neurological Exam Neurological Exam: Alert, Awake, CN II-XII Intact, Oriented x3 - Psychiatric Exam Psychiatric exam: Normal Affect, Normal Mood - Skin Skin Exam: Dry, Pallor, Warm Assessment and Plan - Assessment and Plan (Free Text) Assessment: This is an 82 year old female with a past medical history significant for COPD on home oxygen, essential hypertension, Type 2 diabetes mellitus controlled with insulin, history of CHF, anxiety, depression, well known to the hospitalist team from previous admissions. This time , the patient was brought to the ED with altered mental status and decreased po intake. As per the son, the patient has not eaten or drank anything for the past two days at [place]. She is somnolent and unable to give ROS due to altered mental status. In the ED, she was noted to be hypotensive. The family is opting for conservative management at this time with telemetry admission for fluids and antibiotics. 1. NSTEMI [id number] elevated however trending down Pt and family do not want any aggressive treatment cont medical mgt with ASA start Diovan , statin Consultation with cardiology EKG: NSR 81 bpm with PAC, LAC, RBBB, nonSTEMI Lovenox 1 mg/kg for ACS anticoagulation Patient DNR/DNI 2. Acute on Chronic CHF, systolic and diastolic dysfunction ECHO done last year showed EF 35% restart Lasix restart ARB no BB due to COPD/hypotension 3. Acute on Chronic Respiratory Failure with Hypoxia and Hypercapnea sec to COPD exacerbation and CHF exacerb patient is on home oxygen started High Flow Oxygen 20/60% CXR- atelectasis consultation with Dr. Greene taper IV Solumedrol 40 q12 cont IV Levaquin 4. Altered mental status Likely metabolic encephalopathy related to hypercapnia, felt less likely to be related to infectious cause Cont to monitor Fall precautions 5. DM type II regular insulin sliding scale coverage cont Glipizide increase Levemir to 15 units q hs 6. Anemia of chronic disease stable, 7. Anxiety/ depression on trazodone and temazepam at home 8. DVT prophylaxis Lovenox 1 mg/kg Protonix for GI proph
--- NOTE | 2017-11-08 11:11 | CARD ---
APPROVED REPORT EKG Measurement Heart [id number] <Conclusion> Sinus tachycardia Incomplete right bundle branch block Nonspecific T wave abnormality Abnormal ECG
--- NOTE | 2017-11-08 11:48 | CP.PCM.PN ---
Subjective - Date & Time of Evaluation Date of Evaluation: 11/08/17 Time of Evaluation: 11:48 - Subjective Subjective: AWAKE/ALERT AND HAS MINIMAL RESPIRATORY DISTRESS O2 SAT DROPPED YESTERDAY REQUIRING HIGH FLOW O2 Objective - Vital Signs/Intake and Output Vital Signs (last 24 hours): Temp Pulse Resp BP Pulse Ox 97.2 F L 88 18 127/76 99 11/08/17 09:00 11/08/17 09:10 11/08/17 09:00 11/08/17 09:14 11/08/17 09:00 - Medications Medications: Current Medications Acetaminophen (Tylenol 325mg Tab) 650 mg PO Q4H PRN PRN Reason: Pain, Mild (1-3) Acetaminophen (Tylenol 325mg Tab) 650 mg PO Q4H PRN PRN Reason: TEMP >100 Aspirin (Ecotrin) 81 mg PO DAILY [facility] Last Admin: 11/08/17 09:11 Dose: 81 mg Enoxaparin Sodium (Lovenox) 60 mg SC Q12 [facility] PRN Reason: Protocol Last Admin: 11/08/17 09:13 Dose: 60 mg Furosemide (Lasix) 40 mg PO DAILY [facility] Last Admin: 11/08/17 09:14 Dose: 40 mg Glipizide (Glucotrol Xl) 5 mg PO BRK [facility] Last Admin: 11/08/17 08:11 Dose: 5 mg Levofloxacin/Dextrose (Levaquin 250mg) 250 mg in 50 mls @ 50 mls/hr IVPB DAILY [facility] Insulin Detemir (Levemir) [address] [facility] Last Admin: 11/07/17 22:00 Dose: 10 u Insulin Human Regular (Humulin R) 0 units SC Q6H [facility] PRN Reason: Protocol Last Admin: 11/08/17 06:53 Dose: 6 units Levalbuterol HCl (Xopenex) 1.25 mg INH RQ8 [facility] Last Admin: 11/08/17 07:39 Dose: 1.25 mg Lidocaine (Lidoderm) 1 ea TD DAILY [facility] Last Admin: 11/08/17 09:12 Dose: 1 ea Magnesium Hydroxide (Milk Of Magnesia) 30 ml PO DAILY PRN PRN Reason: Constipation Methylprednisolone (Solu-Medrol) 60 mg IV Q8 [facility] Last Admin: 11/08/17 09:13 Dose: 60 mg Montelukast Sodium (Singulair) 10 mg PO HS [facility] Last Admin: 11/07/17 21:21 Dose: 10 mg Temazepam (Restoril) 30 mg PO HS [facility] Last Admin: 11/07/17 23:42 Dose: 30 mg Trazodone HCl (Desyrel) 150 mg PO HS [facility] Last Admin: 11/07/17 21:15 Dose: 150 mg Verapamil HCl (Calan Tab) 120 mg PO BID [facility] Last Admin: 11/08/17 09:10 Dose: 120 mg - Labs Labs: 11/08/17 06:30 11/08/17 06:30 - Constitutional Appears: Chronically Ill - Head Exam Head Exam: ATRAUMATIC, NORMAL INSPECTION, NORMOCEPHALIC - Eye Exam Eye Exam: EOMI, Normal appearance, PERRL Pupil Exam: NORMAL ACCOMODATION, PERRL - ENT Exam ENT Exam: Mucous Membranes Moist, Normal Exam - Neck Exam Neck Exam: Full ROM, Normal Inspection. absent: Lymphadenopathy - Respiratory Exam Respiratory Exam: Decreased Breath Sounds, Prolonged Expiratory Phase, Rales, NORMAL BREATHING PATTERN - Cardiovascular Exam Cardiovascular Exam: REGULAR RHYTHM, +S1, +S2. absent: Murmur - GI/Abdominal Exam GI & Abdominal Exam: Soft, Normal Bowel Sounds. absent: Tenderness - Rectal Exam Rectal Exam: NORMAL INSPECTION - Extremities Exam Extremities Exam: Full ROM, Normal Capillary Refill, Normal Inspection. absent : Joint Swelling, Pedal Edema - Back Exam Back Exam: NORMAL INSPECTION - Neurological Exam Neurological Exam: Alert, Awake, CN II-XII Intact, Normal Gait, Oriented x3 - Psychiatric Exam Psychiatric exam: Normal Affect, Normal Mood - Skin Skin Exam: Dry, Intact, Normal Color, Warm Assessment and Plan - Assessment and Plan (Free Text) Assessment: RESP FAILURE COPD EXAC HTN Plan: CONTINUE PRESENT RX WILL REPEAT CXR IN AM
[2017-11-08] MEDS ORDERED: levoFLOXacin 250 mg in D5W 250 MG/50 ML BAG IVPB SCH (13:00)
[2017-11-08] MEDS: Pantoprazole 40 mg EC Tab PO SCH (16:22)
[2017-11-08] MEDS: Verapamil 120 mg ER Tab PO SCH (17:04)
[2017-11-08] MEDS: MethylPREDNISolone 40 mg Vial IV SCH (21:09)
[2017-11-08] MEDS: Insulin Detemir 100 Units/ml Inj SC SCH (21:45)
[2017-11-09] MEDS: Levalbuterol 1.25 MG/3 ML Inhal Soln UD INH SCH ×4 (00:22→20:01)
[2017-11-09] MEDS ORDERED: ALENDRONATE 70 MG TAB PO SCH (01:24)
[2017-11-09 06:11] LABS: BLOOD UREA NITROGEN 34 mg/dl (7-17); CALCIUM 8.8 mg/dL (8.4-10.2); GFR AFRICAN-AMERICAN > 60; GFR NON-AFRICAN AMERICAN > 60
[2017-11-09] MEDS: Insulin Regular 100 units/ml SC SCH ×4 (06:52→22:19)
[2017-11-09 07:43] LABS: HEMOGLOBIN 8.7 g/dL (12.0-16.0); MEAN CELL VOLUME 91.9 fl (81.0-99.0); MEAN CORPUSCULAR HEMOGLOBIN 29.4 pg (27.0-31.0); RBC 2.95 Mil/uL (3.80-5.20); RED CELL DISTRIBUTION WIDTH 19.2 % (11.5-14.5); WHITE BLOOD COUNT 6.2 K/uL (4.8-10.8)
[2017-11-09] MEDS ORDERED: Meropenem 1 GM in Sodium Chloride 0.9% 100 ML IVPB ONE (08:54)
[2017-11-09] MEDS: Verapamil 120 mg ER Tab PO SCH ×2 (09:10→17:51)
[2017-11-09] MEDS: GlipiZIDE 5 mg SR Tab PO SCH (09:11)
[2017-11-09] MEDS: Enoxaparin 60 mg Syringe SC SCH (09:12)
[2017-11-09] MEDS: Lidocaine 5% Patch TD SCH (09:12)
[2017-11-09] MEDS: Pantoprazole 40 mg EC Tab PO SCH (09:13)
[2017-11-09] MEDS: MethylPREDNISolone 40 mg Vial IV SCH ×2 (09:13→22:20)
--- NOTE | 2017-11-09 11:46 | PCM.RRT ---
DOCUMENT IMPROVEMENT SPECIALIST Nurse Assessment - Situation Location: [address] [place] [address] Room Number: 415 DOCUMENT IMPROVEMENT SPECIALIST Reason for Call: O2 Saturation below 90% DOCUMENT IMPROVEMENT SPECIALIST Called By: RN - IV IV Inserted during DOCUMENT IMPROVEMENT SPECIALIST?: No - Respiratory Oxygen Delivery Method: High-Flow Received Nebulizer Treatments: Yes Was the Patient Ventilated with Bag/Mask 100% O2?: No Secretions Suctioned?: No Was the Patient Intubated?: No Was the Patient Placed on a Ventilator?: No - Ventilator Settings FIO2 (% Oxygen): 60 - Medication Medications Administered During DOCUMENT IMPROVEMENT SPECIALIST: Lasix 40 mg IVP - Diagnostic Test Ordered EKG: No Chest X-Ray: No CT Scan: No CPR started during DOCUMENT IMPROVEMENT SPECIALIST?: No - Vital Signs Vital Signs: Rapid Response Vital Sign Blood Pressure 169/90 Pulse Rate 111 Respiratory Rate 36 Temperature 97.4 F Oxygen Saturation 96 - Time DOCUMENT IMPROVEMENT SPECIALIST Ended Time DOCUMENT IMPROVEMENT SPECIALIST Ended: 11:25 - Vital Signs at end of DOCUMENT IMPROVEMENT SPECIALIST Vital Signs at end of DOCUMENT IMPROVEMENT SPECIALIST: Rapid Response End Vital Sign Blood Pressure 152/77 Pulse Rate 97 Respiratory Rate 24 Temperature 97.6 F O2 Sat by Pulse Oximetry 98 - Recommendations DOCUMENT IMPROVEMENT SPECIALIST Level of Care Recommendations: Remain in current setting I.Reason for DOCUMENT IMPROVEMENT SPECIALIST - A) Acute Change in Patient: (Select all that apply): Acute change in SpO2 less - Neurological Status (Select all that apply): Alert, Responsive, Oriented, Verbal, Follows Commands - Respiratory Oxygen Delivery Method: High-Flow @% Oxygen Flow Rate: 4 - Constitutional Appears: In Acute Distress - Head Head Exam: NORMAL INSPECTION, NORMOCEPHALIC - Eyes Eye Exam: EOMI, Normal appearance - Respiratory Exam Respiratory Exam: Rales, Rhonchi, Wheezes, Respiratory Distress - Cardiovascular Exam Cardiovascular Exam: REGULAR RHYTHM, +S1, +S2 - GI/Abdominal Exam GI & Abdominal Exam: Soft, Normal Bowel Sounds. absent: Tenderness - Neurological Exam Neurological Exam: Alert, Awake, CN II-XII Intact, Oriented x3 - Extremities Exam Extremities Exam: Full ROM, Normal Capillary Refill, Normal Inspection Plan - Assessment of Findings&Treatment Plan Acute on Chronic Hypoxic Respiratory Failure sec to CHF exacerb and COPD exacerb - Increase High Flow Oxygen to 100% Fio2 - Xopenex q 4 - Lasix 40 mg IV stat - pt's sxs improved
--- NOTE | 2017-11-09 11:46 | CP.PCM.PN ---
Subjective - Date & Time of Evaluation Date of Evaluation: 11/09/17 Time of Evaluation: 11:00 - Subjective Subjective: Pt had episode of resp distress/desaturation today likely due to pulm vasc congestion denies CP no ZIEGLER Pt is alert, oriented x 3 still with dry cough no fever no abd pain Objective - Vital Signs/Intake and Output Vital Signs (last 24 hours): Temp Pulse Resp BP Pulse Ox 97.4 F L 81 18 118/61 99 11/09/17 08:27 11/09/17 08:27 11/09/17 08:27 11/09/17 09:15 11/09/17 08:27 - Medications Medications: Current Medications Acetaminophen (Tylenol 325mg Tab) 650 mg PO Q4H PRN PRN Reason: Pain, Mild (1-3) Acetaminophen (Tylenol 325mg Tab) 650 mg PO Q4H PRN PRN Reason: TEMP >100 Aspirin (Ecotrin) 81 mg PO DAILY [facility] Last Admin: 11/09/17 09:11 Dose: 81 mg Enoxaparin Sodium (Lovenox) 60 mg SC Q12 [facility] PRN Reason: Protocol Last Admin: 11/09/17 09:12 Dose: 60 mg Furosemide (Lasix) 40 mg PO DAILY [facility] Last Admin: 11/09/17 09:15 Dose: 40 mg Glipizide (Glucotrol Xl) 5 mg PO BRK [facility] Last Admin: 11/09/17 09:11 Dose: 5 mg Insulin Detemir (Levemir) 15 units SC [facility] Last Admin: 11/08/17 21:45 Dose: 15 u Insulin Human Regular (Humulin R) [address] [facility] PRN Reason: Protocol Last Admin: 11/09/17 06:52 Dose: 4 u Levalbuterol HCl (Xopenex) 1.25 mg INH Q4 [facility] Lidocaine (Lidoderm) 1 ea TD DAILY [facility] Last Admin: 11/09/17 09:12 Dose: 1 ea Magnesium Hydroxide (Milk Of Magnesia) 30 ml PO DAILY [facility] PRN Reason: Constipation Last Admin: 11/08/17 11:58 Dose: 30 ml Methylprednisolone (Solu-Medrol) 40 mg IV Q12 [facility] Last Admin: 11/09/17 09:13 Dose: 40 mg Montelukast Sodium (Singulair) 10 mg PO [facility] Last Admin: 11/08/17 21:13 Dose: 10 mg Pantoprazole Sodium (Protonix Ec Tab) 40 mg PO DAILY [facility] Last Admin: 11/09/17 09:13 Dose: 40 mg Temazepam (Restoril) 30 mg PO HS [facility] Last Admin: 11/08/17 21:58 Dose: 30 mg Trazodone HCl (Desyrel) 150 mg PO HS [facility] Last Admin: 11/08/17 21:11 Dose: 150 mg Valsartan (Diovan) 40 mg PO DAILY [facility] Last Admin: 11/09/17 09:11 Dose: 40 mg Verapamil HCl (Calan Sr Tab) 120 mg PO BID [facility] Last Admin: 11/09/17 09:10 Dose: 120 mg - Labs Labs: 11/09/17 04:42 11/09/17 04:42 Assessment and Plan - Assessment and Plan (Free Text) Assessment: - Constitutional Appears: No Acute Distress, Chronically Ill - Head Exam Head Exam: NORMAL INSPECTION, NORMOCEPHALIC - Eye Exam Eye Exam: EOMI, Normal appearance Pupil Exam: NORMAL ACCOMODATION - ENT Exam ENT Exam: Mucous Membranes Moist, Normal External Ear Exam - Neck Exam Neck Exam: Full ROM. absent: Meningismus - Respiratory Exam Respiratory Exam: coarse Rales, Rhonchi. absent: Respiratory Distress no wheezing - Cardiovascular Exam Cardiovascular Exam: REGULAR RHYTHM, +S1, +S2 - GI/Abdominal Exam GI & Abdominal Exam: Soft, Normal Bowel Sounds. absent: Tenderness - Extremities Exam Extremities Exam: Full ROM, Normal Capillary Refill. absent: Calf Tenderness, Pedal Edema - Back Exam Back Exam: Full ROM. absent: CVA tenderness (L), CVA tenderness (R) - Neurological Exam Neurological Exam: Alert, Awake, CN II-XII Intact, Oriented x3 - Psychiatric Exam Psychiatric exam: Normal Affect, Normal Mood - Skin Skin Exam: Dry, Pallor, Warm Assessment and Plan - Assessment and Plan (Free Text) Assessment: This is an 82 year old female with a past medical history significant for COPD on home oxygen, essential hypertension, Type 2 diabetes mellitus controlled with insulin, history of CHF, anxiety, depression, well known to the hospitalist team from previous admissions. This time , the patient was brought to the ED with altered mental status and decreased po intake. As per the son, the patient has not eaten or drank anything for the past two days at [place]. In the ED, she was noted to be hypotensive. The family is opting for conservative management at this time with telemetry admission for fluids and antibiotics. 1. NSTEMI Troponin elevated however trending down Pt and family do not want any aggressive treatment cont medical mgt with ASA started Diovan , statin no BB due to severe COPD Consultation with cardiology EKG: NSR 81 bpm with PAC, LAC, RBBB, nonSTEMI Lovenox 1 mg/kg for ACS anticoagulation Patient DNR/DNI 2. Acute on Chronic CHF, systolic and diastolic dysfunction ECHO done last year showed EF 35% restart Lasix - increase dose restart ARB no BB due to COPD 3. Acute on Chronic Respiratory Failure with Hypoxia and Hypercapnea sec to COPD exacerbation and CHF exacerb patient is on home oxygen started High Flow Oxygen 20/60%- had episode of desaturation and resp distress today - High Flwo increased to 100% FiO2 CXR- Pulm vascular congestion consultation with Dr. Greene taper IV Solumedrol 40 q12 Abx : pt started on Meropenem today 4. Altered mental status improved Likely metabolic encephalopathy related to hypercapnia, felt less likely to be related to infectious cause Cont to monitor Fall precautions 5. DM type II regular insulin sliding scale coverage cont Glipizide increase Levemir to 15 units q hs 6. Anemia of chronic disease stable, 7. Anxiety/ depression on trazodone and temazepam at home 8. ESBL E Coli UTI - pt started on IV Meropenem - ID - Dr nguyen consulted DVT prophylaxis Lovenox 1 mg/kg Protonix for GI proph
[2017-11-09] MEDS ORDERED: Levalbuterol 1.25 MG/3 ML Inhal Soln UD INH SCH (12:00)
--- NOTE | 2017-11-09 12:18 | RAD ---
HISTORY: COPD COMPARISON: Chest x-ray performed 11/06/17 TECHNIQUE: Chest, one view. FINDINGS: Examination limited by habitus, patient obliquity, and hypoinflation. The patient's chin obscures evaluation of the lung apices, in particularly the right lung apex. LUNGS: Small xpqh-[id number]-pzbt-right pleural effusions and associated consolidations. Pulmonary venous congestion. No definite pneumothorax. Please note that chest x-ray has limited sensitivity for the detection of pulmonary masses. CARDIOVASCULAR: Cardiomegaly. Atherosclerotic calcifications of the aorta. OSSEOUS STRUCTURES: No acute osseous abnormality is detected. VISUALIZED UPPER ABDOMEN: Unremarkable. OTHER FINDINGS: None. IMPRESSION: Limited study as above. Small obnc-ilejoah-ouyn-right pleural effusions and associated consolidations. Pulmonary venous congestion. Cardiomegaly. Atherosclerotic calcifications.
[2017-11-09] MEDS: Meropenem 500 MG in Sodium Chloride 0.9% 100 ML IVPB SCH (17:48)
[2017-11-09] MEDS: Insulin Detemir 100 Units/ml Inj SC SCH (22:26)
[2017-11-10] MEDS: Levalbuterol 1.25 MG/3 ML Inhal Soln UD INH SCH ×6 (00:13→19:24)
[2017-11-10] MEDS: Meropenem 500 MG in Sodium Chloride 0.9% 100 ML IVPB SCH ×3 (01:12→17:05)
[2017-11-10 05:46] LABS: HEMOGLOBIN 8.3 g/dL (12.0-16.0); MEAN CELL VOLUME 89.5 fl (81.0-99.0); MEAN CORPUSCULAR HEMOGLOBIN 30.5 pg (27.0-31.0); MEAN CORPUSCULAR HGB CONC 34.1 g/dL (33.0-37.0); RBC 2.72 Mil/uL (3.80-5.20); WHITE BLOOD COUNT 7.2 K/uL (4.8-10.8)
[2017-11-10 06:14] LABS: BLOOD UREA NITROGEN 33 mg/dl (7-17); CALCIUM 8.6 mg/dL (8.4-10.2); GFR AFRICAN-AMERICAN > 60; GFR NON-AFRICAN AMERICAN > 60
[2017-11-10] MEDS ORDERED: GlipiZIDE 10 mg SR Tab PO SCH (08:10)
--- NOTE | 2017-11-10 08:52 | PQF GENQUE ---
Dr. Marroquin, Please specify the status, of diabetes:i.e. With coma With hyperglycemia (poorly controlled, out of control, etc.) With hyperosmolarity ([facility]) With hypoglycemia With ketoacidosis Other (please specify) Clinically unable to determine Unknown 11/09 progress note: 5. DM type II regular insulin sliding scale coverage ;cont Glipizide :increase Levemir to 15 units q hs random glucose: 220->269-.292->247-> 232 This form is a permanent part of the medical record Clarification of your documentation is requested to better reflect the severity of illness and intensity of treatment of your patient. Indicators present [] Specify: [] [] Specify: [] [] Specify: [] [] Specify: [] Location in the medical record that reflects the above clinical findings: [] Treatment Provided: [] PHYSICIAN'S RESPONSE DM Type II with yhyperglycemia Based on your medical judgment of the clinical indicators outlined above please clarify the following: [] Practitioner response [] If unable to determine, please check the box, sign and date. Present On Admission (POA) Indicator: [] Present at the time of admission [] Not present at the time of admission [] Clinically Undetermined In responding to this query, please exercise your independent professional judgment. The fact that a question is asked does not imply that any particular answer is desired or expected. Thank you for your clarification on this documentation. If you have any questions please call. * Thank you, Nadia Nicolas RN ext. #[phone] MTDD
--- NOTE | 2017-11-10 08:58 | PQF GENQUE ---
Dr. Greene, Please specify type of pneumonia or suspected type of pneumonia in the progress notes: i.e. Aspiration pneumonia Please document specific aspirate (food, liquids, etc.) Please indicate if this is postprocedural Bacterial (specify organism) Bronchopneumonia (specify organism) Interstitual pneumonia Organizing pneumonia/BOOP Pneumonia with influenza, joão flu, or H1N1 flu RSV pneumonia Tuberculosis, pulmonary Viral pneumonia Other pneumonia (specify organism or type) Clinically unable to determine Unknown Please specify the organism causing the pneumonia: if known after the work up is completed Note: CAP, HAP, and HCAP indicate where the pneumonia was acquired, not a specific type. 11/07 Pulmonary consult; Chest x-ray is remarkable for heterogenous opacities at the left lower lobe, which may represent atelectasis or pneumonia. Impression :Lethargy, probably secondary to respiratory failure due to acute exacerbation of chronic obstructive pulmonary disease with superimposed pneumonia, left base. This form is a permanent part of the medical record Clarification of your documentation is requested to better reflect the severity of illness and intensity of treatment of your patient. Indicators present [] Specify: [] [] Specify: [] [] Specify: [] [] Specify: [] Location in the medical record that reflects the above clinical findings: [] Treatment Provided: [] PHYSICIAN'S RESPONSE Based on your medical judgment of the clinical indicators outlined above please clarify the following: [] Practitioner response [] If unable to determine, please check the box, sign and date. Present On Admission (POA) Indicator: [] Present at the time of admission [] Not present at the time of admission [] Clinically Undetermined In responding to this query, please exercise your independent professional judgment. The fact that a question is asked does not imply that any particular answer is desired or expected. Thank you for your clarification on this documentation. If you have any questions please call. * Thank you, Nadia Nicolas RN ext. #[phone] MTDD
[2017-11-10] MEDS: MethylPREDNISolone 40 mg Vial IV SCH ×2 (08:59→22:11)
[2017-11-10] MEDS: Pantoprazole 40 mg EC Tab PO SCH (08:59)
[2017-11-10] MEDS: Verapamil 120 mg ER Tab PO SCH ×2 (09:00→17:06)
[2017-11-10] MEDS: Lidocaine 5% Patch TD SCH (09:00)
[2017-11-10] MEDS: Insulin Regular 100 units/ml SC SCH ×3 (09:11→22:15)
--- NOTE | 2017-11-10 09:18 | CP.PCM.PN ---
Subjective - Date & Time of Evaluation Date of Evaluation: 11/10/17 Time of Evaluation: 09:18 - Subjective Subjective: ON HIGH FLOW O2 COMFORTABLE THIS AM Objective - Vital Signs/Intake and Output Vital Signs (last 24 hours): Temp Pulse Resp BP Pulse Ox 97.4 F L 77 18 124/62 100 11/10/17 08:00 11/10/17 09:00 11/10/17 08:23 11/10/17 09:00 11/10/17 08:00 Intake and Output: 11/10/17 11/10/17 06:59 18:59 Intake Total 150 Output Total 450 Balance -300 - Medications Medications: Current Medications Acetaminophen (Tylenol 325mg Tab) 650 mg PO Q4H PRN PRN Reason: Pain, Mild (1-3) Acetaminophen (Tylenol 325mg Tab) 650 mg PO Q4H PRN PRN Reason: TEMP >100 Aspirin (Ecotrin) 81 mg PO DAILY [facility] Last Admin: 11/10/17 09:00 Dose: 81 mg Furosemide (Lasix) 40 mg PO BID [facility] Last Admin: 11/10/17 09:00 Dose: 40 mg Glipizide (Glucotrol Xl) 10 mg PO BRK [facility] Meropenem 500 mg/ Sodium (Chloride) 100 mls @ 100 mls/hr IVPB Q8 [facility] PRN Reason: Protocol Last Admin: 11/10/17 08:58 Dose: 100 mls/hr Insulin Detemir (Levemir) 15 units SC HS [facility] Last Admin: 11/09/17 22:26 Dose: 15 u Insulin Human Regular (Humulin R) 0 units SC ACHS [facility] PRN Reason: Protocol Last Admin: 11/10/17 09:11 Dose: 3 u Levalbuterol HCl (Xopenex) 1.25 mg INH RQ4 [facility] Last Admin: 11/10/17 08:23 Dose: 1.25 mg Lidocaine (Lidoderm) 1 ea TD DAILY [facility] Last Admin: 11/10/17 09:00 Dose: 1 ea Magnesium Hydroxide (Milk Of Magnesia) 30 ml PO DAILY PRN PRN Reason: Constipation Last Admin: 11/08/17 11:58 Dose: 30 ml Methylprednisolone (Solu-Medrol) 30 mg IV Q12 [facility] Last Admin: 11/10/17 08:59 Dose: 30 mg Montelukast Sodium (Singulair) 10 mg PO HS [facility] Last Admin: 11/09/17 22:17 Dose: 10 mg Pantoprazole Sodium (Protonix Ec Tab) 40 mg PO DAILY [facility] Last Admin: 11/10/17 08:59 Dose: 40 mg Temazepam (Restoril) 30 mg PO HS [facility] Last Admin: 11/09/17 22:24 Dose: 30 mg Trazodone HCl (Desyrel) 150 mg PO [facility] Last Admin: 11/09/17 22:18 Dose: 150 mg Valsartan (Diovan) 40 mg PO DAILY [facility] Last Admin: 11/10/17 09:00 Dose: 40 mg Verapamil HCl (Calan Sr Tab) 120 mg PO BID [facility] Last Admin: 11/10/17 09:00 Dose: 120 mg - Labs Labs: 11/10/17 04:20 11/10/17 04:20 - Constitutional Appears: Chronically Ill - Head Exam Head Exam: ATRAUMATIC, NORMAL INSPECTION, NORMOCEPHALIC - Eye Exam Eye Exam: EOMI, Normal appearance, PERRL Pupil Exam: NORMAL ACCOMODATION, PERRL - ENT Exam ENT Exam: Mucous Membranes Moist, Normal Exam - Neck Exam Neck Exam: Full ROM, Normal Inspection. absent: Lymphadenopathy - Respiratory Exam Respiratory Exam: Decreased Breath Sounds, Prolonged Expiratory Phase, Rales - Cardiovascular Exam Cardiovascular Exam: REGULAR RHYTHM, +S1, +S2. absent: Murmur - GI/Abdominal Exam GI & Abdominal Exam: Soft, Normal Bowel Sounds. absent: Tenderness - Rectal Exam Rectal Exam: NORMAL INSPECTION - Extremities Exam Extremities Exam: Full ROM, Normal Capillary Refill, Normal Inspection. absent : Joint Swelling, Pedal Edema - Back Exam Back Exam: NORMAL INSPECTION - Neurological Exam Neurological Exam: Alert, Awake, CN II-XII Intact, Normal Gait, Oriented x3 - Psychiatric Exam Psychiatric exam: Normal Affect, Normal Mood - Skin Skin Exam: Dry, Intact, Normal Color, Warm Assessment and Plan - Assessment and Plan (Free Text) Assessment: ACUTE EXAC OF COPD CHF Plan: CONTINUE PRESENT RX
--- NOTE | 2017-11-10 09:26 | CP.PCM.PN ---
Subjective - Date & Time of Evaluation Date of Evaluation: 11/10/17 Time of Evaluation: 08:30 - Subjective Subjective: Remains on High Flow Oxygen, saturating 100% on - decreased Fio2 to 60% No fever feels better today SOB better sl cough denies CP no abd pain Objective - Vital Signs/Intake and Output Vital Signs (last 24 hours): Temp Pulse Resp BP Pulse Ox 97.4 F L 77 18 124/62 100 11/10/17 08:00 11/10/17 09:00 11/10/17 08:23 11/10/17 09:00 11/10/17 08:00 Intake and Output: 11/10/17 11/10/17 06:59 18:59 Intake Total 150 Output Total 450 Balance -300 - Medications Medications: Current Medications Acetaminophen (Tylenol 325mg Tab) 650 mg PO Q4H PRN PRN Reason: Pain, Mild (1-3) Acetaminophen (Tylenol 325mg Tab) 650 mg PO Q4H PRN PRN Reason: TEMP >100 Aspirin (Ecotrin) 81 mg PO DAILY [facility] Last Admin: 11/10/17 09:00 Dose: 81 mg Furosemide (Lasix) 40 mg PO BID [facility] Last Admin: 11/10/17 09:00 Dose: 40 mg Glipizide (Glucotrol Xl) 10 mg PO BRK [facility] Meropenem 500 mg/ Sodium (Chloride) 100 mls @ 100 mls/hr IVPB Q8 [facility] PRN Reason: Protocol Last Admin: 11/10/17 08:58 Dose: 100 mls/hr Insulin Detemir (Levemir) 15 units SC HS [facility] Last Admin: 11/09/17 22:26 Dose: 15 u Insulin Human Regular (Humulin R) 0 units SC ACHS [facility] PRN Reason: Protocol Last Admin: 11/10/17 09:11 Dose: 3 u Levalbuterol HCl (Xopenex) 1.25 mg INH RQ4 [facility] Last Admin: 11/10/17 08:23 Dose: 1.25 mg Lidocaine (Lidoderm) 1 ea TD DAILY [facility] Last Admin: 11/10/17 09:00 Dose: 1 ea Magnesium Hydroxide (Milk Of Magnesia) 30 ml PO DAILY PRN PRN Reason: Constipation Last Admin: 11/08/17 11:58 Dose: 30 ml Methylprednisolone (Solu-Medrol) 30 mg IV Q12 [facility] Last Admin: 11/10/17 08:59 Dose: 30 mg Montelukast Sodium (Singulair) 10 mg PO [facility] Last Admin: 11/09/17 22:17 Dose: 10 mg Pantoprazole Sodium (Protonix Ec Tab) 40 mg PO DAILY [facility] Last Admin: 11/10/17 08:59 Dose: 40 mg Temazepam (Restoril) 30 mg PO HS [facility] Last Admin: 11/09/17 22:24 Dose: 30 mg Trazodone HCl (Desyrel) 150 mg PO HS [facility] Last Admin: 11/09/17 22:18 Dose: 150 mg Valsartan (Diovan) 40 mg PO DAILY [facility] Last Admin: 11/10/17 09:00 Dose: 40 mg Verapamil HCl (Calan Sr Tab) 120 mg PO BID [facility] Last Admin: 11/10/17 09:00 Dose: 120 mg - Labs Labs: 11/10/17 04:20 11/10/17 04:20 - Constitutional Appears: No Acute Distress, Chronically Ill - Head Exam Head Exam: NORMAL INSPECTION, NORMOCEPHALIC - Eye Exam Eye Exam: EOMI, Normal appearance Pupil Exam: NORMAL ACCOMODATION - ENT Exam ENT Exam: Mucous Membranes Moist, Normal External Ear Exam - Neck Exam Neck Exam: Full ROM. absent: Meningismus - Respiratory Exam Respiratory Exam: coarse Rales, Rhonchi. absent: Respiratory Distress sl wheezing on High Flow Oxygen - Cardiovascular Exam Cardiovascular Exam: REGULAR RHYTHM, +S1, +S2 - GI/Abdominal Exam GI & Abdominal Exam: Soft, Normal Bowel Sounds. absent: Tenderness - Extremities Exam Extremities Exam: Full ROM, Normal Capillary Refill. absent: Calf Tenderness, Pedal Edema - Back Exam Back Exam: Full ROM. absent: CVA tenderness (L), CVA tenderness (R) - Neurological Exam Neurological Exam: Alert, Awake, CN II-XII Intact, Oriented x3 - Psychiatric Exam Psychiatric exam: Normal Affect, Normal Mood - Skin Skin Exam: Dry, Pallor, Warm Assessment and Plan - Assessment and Plan (Free Text) Assessment: This is an 82 year old female with a past medical history significant for COPD on home oxygen, essential hypertension, Type 2 diabetes mellitus controlled with insulin, history of CHF, anxiety, depression, well known to the hospitalist team from previous admissions. This time , the patient was brought to the ED with altered mental status and decreased po intake. As per the son, the patient has not eaten or drank anything for the past two days at [place]. In the ED, she was noted to be hypotensive , Troponin elevated. The family is opting for conservative management . Pt also has episodes of acute on chronic resp failure due to CHF and COPd - placed on High Flow Oxygen. 1. NSTEMI Troponin elevated however trending down Pt and family do not want any aggressive treatment cont medical mgt with ASA started Diovan , statin no BB due to severe COPD Consultation with cardiology EKG: NSR 81 bpm with PAC, LAC, RBBB, nonSTEMI Lovenox 1 mg/kg q12 for ACS anticoagulation- will now change to proph dose Patient DNR/DNI 2. Acute on Chronic CHF, systolic and diastolic dysfunction ECHO done last year showed EF 35% restart Lasix - increase dose restart ARB no BB due to COPD 3. Acute on Chronic Respiratory Failure with Hypoxia and Hypercapnea sec to COPD exacerbation and CHF exacerb patient is on home oxygen started High Flow Oxygen - will decrease to 20L/60% FiO2 today CXR- Pulm vascular congestion consultation with Dr. Greene taper IV Solumedrol 30 q12 Abx : pt on Meropenem cont Xopenex 4. Altered mental status improved Likely metabolic encephalopathy related to hypercapnia, felt less likely to be related to infectious cause Cont to monitor Fall precautions 5. DM type II with hyperglycemia worsened by IV Steroids regular insulin sliding scale coverage cont Glipizide increase Levemir to 18 units q hs 6. Anemia of chronic disease stable 7. Anxiety/ depression on trazodone and temazepam at home 8. ESBL E Coli UTI - pt started on IV Meropenem - ID - Dr nguyen consulted DVT prophylaxis Lovenox Protonix for GI proph
[2017-11-10] MEDS ORDERED: Enoxaparin 40 mg Syringe SC STA (17:14)
[2017-11-10] MEDS ORDERED: Insulin Detemir 100 Units/ml Inj SC SCH (17:16)
[2017-11-11] MEDS: Meropenem 500 MG in Sodium Chloride 0.9% 100 ML IVPB SCH ×2 (00:11→10:33)
[2017-11-11] MEDS: Levalbuterol 1.25 MG/3 ML Inhal Soln UD INH SCH ×5 (04:41→15:52)
[2017-11-11 05:32] LABS: HEMOGLOBIN 8.4 g/dL (12.0-16.0); MEAN CELL VOLUME 90.3 fl (81.0-99.0); MEAN CORPUSCULAR HEMOGLOBIN 29.2 pg (27.0-31.0); MEAN CORPUSCULAR HGB CONC 32.4 g/dL (33.0-37.0); RBC 2.88 Mil/uL (3.80-5.20); RED CELL DISTRIBUTION WIDTH 18.5 % (11.5-14.5); WHITE BLOOD COUNT 7.2 K/uL (4.8-10.8)
[2017-11-11 05:46] LABS: BLOOD UREA NITROGEN 32 mg/dl (7-17); CALCIUM 8.3 mg/dL (8.4-10.2); GFR AFRICAN-AMERICAN > 60; GFR NON-AFRICAN AMERICAN 60
[2017-11-11] MEDS: Insulin Regular 100 units/ml SC SCH ×2 (06:53→12:14)
[2017-11-11] MEDS: Lidocaine 5% Patch TD SCH (08:24)
[2017-11-11] MEDS: Verapamil 120 mg ER Tab PO SCH (08:26)
[2017-11-11] MEDS: MethylPREDNISolone 40 mg Vial IV SCH (08:27)
[2017-11-11] MEDS: Pantoprazole 40 mg EC Tab PO SCH (08:27)
[2017-11-11] MEDS ORDERED: Enoxaparin 40 mg Syringe SC SCH (09:00)
--- NOTE | 2017-11-11 09:24 | CP.PCM.PN ---
Subjective - Date & Time of Evaluation Date of Evaluation: 11/11/17 Time of Evaluation: 09:24 - Subjective Subjective: CLINICALLY IMPROVED SOB LESS AWAKE AND ALERT Objective - Vital Signs/Intake and Output Vital Signs (last 24 hours): Temp Pulse Resp BP Pulse Ox 96.4 F L 80 18 144/74 100 11/11/17 08:00 11/11/17 08:26 11/11/17 08:00 11/11/17 08:26 11/11/17 08:00 Intake and Output: 11/11/17 11/11/17 06:59 18:59 Intake Total 500 Balance 500 - Medications Medications: Current Medications Acetaminophen (Tylenol 325mg Tab) 650 mg PO Q4H PRN PRN Reason: Pain, Mild (1-3) Acetaminophen (Tylenol 325mg Tab) 650 mg PO Q4H PRN PRN Reason: TEMP >100 Aspirin (Ecotrin) 81 mg PO DAILY [facility] Last Admin: 11/11/17 08:25 Dose: 81 mg Enoxaparin Sodium (Lovenox) 40 mg SC DAILY [facility] PRN Reason: Protocol Last Admin: 11/11/17 08:24 Dose: 40 mg Furosemide (Lasix) 40 mg PO BID [facility] Last Admin: 11/11/17 08:26 Dose: 40 mg Glipizide (Glucotrol Xl) 10 mg PO BRK [facility] Last Admin: 11/11/17 08:26 Dose: 10 mg Meropenem 500 mg/ Sodium (Chloride) 100 mls @ 100 mls/hr IVPB Q8 [facility] PRN Reason: Protocol Last Admin: 11/11/17 00:11 Dose: 100 mls/hr Insulin Detemir (Levemir) 18 units SC HS [facility] Last Admin: 11/10/17 22:15 Dose: 18 units Insulin Human Regular (Humulin R) 0 units SC ACHS [facility] PRN Reason: Protocol Last Admin: 11/11/17 06:53 Dose: 3 u Levalbuterol HCl (Xopenex) 1.25 mg INH RQ4 [facility] Last Admin: 11/11/17 07:35 Dose: 1.25 mg Lidocaine (Lidoderm) 1 ea TD DAILY [facility] Last Admin: 11/11/17 08:24 Dose: 1 ea Magnesium Hydroxide (Milk Of Magnesia) 30 ml PO DAILY PRN PRN Reason: Constipation Last Admin: 11/08/17 11:58 Dose: 30 ml Methylprednisolone (Solu-Medrol) 30 mg IV Q12 [facility] Last Admin: 11/11/17 08:27 Dose: 30 mg Montelukast Sodium (Singulair) 10 mg PO HS [facility] Last Admin: 11/10/17 22:08 Dose: 10 mg Pantoprazole Sodium (Protonix Ec Tab) 40 mg PO DAILY [facility] Last Admin: 11/11/17 08:27 Dose: 40 mg Temazepam (Restoril) 30 mg PO HS [facility] Last Admin: 11/10/17 22:08 Dose: 30 mg Trazodone HCl (Desyrel) 150 mg PO HS [facility] Last Admin: 11/10/17 22:08 Dose: 150 mg Valsartan (Diovan) 40 mg PO DAILY [facility] Last Admin: 11/11/17 08:25 Dose: 40 mg Verapamil HCl (Calan Sr Tab) 120 mg PO BID [facility] Last Admin: 11/11/17 08:26 Dose: 120 mg - Labs Labs: 11/11/17 04:30 11/11/17 04:30 - Constitutional Appears: No Acute Distress - Head Exam Head Exam: ATRAUMATIC, NORMAL INSPECTION, NORMOCEPHALIC - Eye Exam Eye Exam: EOMI, Normal appearance, PERRL Pupil Exam: NORMAL ACCOMODATION, PERRL - ENT Exam ENT Exam: Mucous Membranes Moist, Normal Exam - Neck Exam Neck Exam: Full ROM, Normal Inspection. absent: Lymphadenopathy - Respiratory Exam Respiratory Exam: Decreased Breath Sounds, Prolonged Expiratory Phase, NORMAL BREATHING PATTERN - Cardiovascular Exam Cardiovascular Exam: REGULAR RHYTHM, +S1, +S2. absent: Murmur - GI/Abdominal Exam GI & Abdominal Exam: Soft, Normal Bowel Sounds. absent: Tenderness - Rectal Exam Rectal Exam: NORMAL INSPECTION - Extremities Exam Extremities Exam: Full ROM, Normal Capillary Refill, Normal Inspection. absent : Joint Swelling, Pedal Edema - Back Exam Back Exam: NORMAL INSPECTION - Neurological Exam Neurological Exam: Alert, Awake, CN II-XII Intact, Normal Gait, Oriented x3 - Psychiatric Exam Psychiatric exam: Normal Affect, Normal Mood - Skin Skin Exam: Dry, Intact, Normal Color, Warm Assessment and Plan - Assessment and Plan (Free Text) Assessment: COPD/CHF IMPROVED Plan: CHANGE O2 TO NC MAY GO TO TCU
--- NOTE | 2017-11-11 11:50 | CP.PCM.DIS ---
Provider - Provider Date of Admission: 11/06/17 18:11 Attending physician: Lloyd Bain DO Primary care physician: Dr. Segundo Consults: cardiology consult pulmonary consult Time Spent in preparation of Discharge (in minutes): 20 Hospital Course - Lab Results Lab Results: Micro Results 11/06/17 18:53 Blood Blood Culture - Preliminary NO GROWTH AFTER 4 DAYS 11/06/17 19:49 Urine,[place] Urine Culture - Final Escherichia Coli Most Recent Lab Values WBC 7.2 K/uL (4.8-10.8) 11/11/17 04:30 RBC 2.88 Mil/uL (3.80-5.20) L 11/11/17 04:30 Hgb 8.4 g/dL (12.0-16.0) L 11/11/17 04:30 Hct 26.0 % (34.0-47.0) L 11/11/17 04:30 MCV 90.3 fl (81.0-99.0) 11/11/17 04:30 MCH 29.2 pg (27.0-31.0) 11/11/17 04:30 MCHC 32.4 g/dL (33.0-37.0) L 11/11/17 04:30 RDW 18.5 % (11.5-14.5) H 11/11/17 04:30 Plt Count 194 K/uL (130-400) 11/11/17 04:30 MPV 8.6 fl (7.2-11.7) 11/07/17 06:30 Neut % (Auto) 91.0 % (50.0-75.0) H 11/07/17 06:30 Lymph % (Auto) 7.0 % (20.0-40.0) L 11/07/17 06:30 Nye % (Auto) 1.8 % (0.0-10.0) 11/07/17 06:30 Eos % (Auto) 0.1 % (0.0-4.0) 11/07/17 06:30 Baso % (Auto) 0.1 % (0.0-2.0) 11/07/17 06:30 Neut # 5.6 K/uL (1.8-7.0) 11/07/17 06:30 Lymph # 0.4 K/uL (1.0-4.3) L 11/07/17 06:30 Nye # 0.1 K/uL (0.0-0.8) 11/07/17 06:30 Eos # 0.0 K/uL (0.0-0.7) 11/07/17 06:30 Baso # 0.0 K/uL (0.0-0.2) 11/07/17 06:30 Neutrophils % (Manual) 86 % (42-75) H 11/07/17 06:30 Band Neutrophils % 5 % (0-2) H 11/07/17 06:30 Lymphocytes % (Manual) 6 % (20-50) L 11/07/17 06:30 Monocytes % (Manual) 3 % (0-10) 11/07/17 06:30 Toxic Granulation Present 11/07/17 06:30 Platelet Estimate Slightly decreased (NORMAL) L 11/07/17 06:30 Large Platelets Present 11/07/17 06:30 Poikilocytosis (manual Slight 11/07/17 06:30 Anisocytosis (manual) Slight 11/07/17 06:30 Macrocytosis (manual) Slight 11/06/17 17:35 Ovalocytes Slight 11/07/17 06:30 Azalea Cells Slight 11/06/17 17:35 pCO2 49 mm/Hg (35-45) H 11/06/17 17:40 pO2 78 mm/Hg (80-100) L 11/06/17 17:40 HCO3 33.6 mmol/L (21-28) H 11/06/17 17:40 ABG pH 7.48 (7.35-7.45) H 11/06/17 17:40 ABG Total CO2 38.0 mmol/L (22-28) H 11/06/17 17:40 ABG O2 Saturation 99.9 % (95-98) H 11/06/17 17:40 ABG Base Excess 11.2 mmol/L (-2.0-3.0) H 11/06/17 17:40 Roger Test Yes 11/06/17 17:40 ABG Potassium 4.0 mmol/L (3.6-5.2) 11/06/17 17:40 A-a O2 Difference 89.0 mm/Hg 11/06/17 17:40 Sodium 133.0 mmol/L (132-148) 11/06/17 17:40 Chloride 100.0 mmol/L (98-107) 11/06/17 17:40 Glucose 231 mg/dL (65-105) H 11/06/17 17:40 Lactate 0.7 mmol/L (0.7-2.1) 11/06/17 17:40 FiO2 32.0 % 11/06/17 17:40 Sodium 142 mmol/l (132-148) 11/11/17 04:30 Potassium 3.8 MMOL/L (3.6-5.0) 11/11/17 04:30 Chloride 95 mmol/L (98-107) L 11/11/17 04:30 Carbon Dioxide 38 mmol/L (22-30) H 11/11/17 04:30 Anion Gap 13 (10-20) 11/11/17 04:30 BUN 32 mg/dl (7-17) H 11/11/17 04:30 Creatinine 0.9 mg/dl (0.7-1.2) 11/11/17 04:30 Est GFR ( Amer) > 60 11/11/17 04:30 Est GFR (Non-Af Amer) 60 11/11/17 04:30 POC Glucose (mg/dL) 243 mg/dL (65-110) H 11/11/17 11:30 Random Glucose 251 mg/dL (65-105) H 11/11/17 04:30 Calcium 8.3 mg/dL (8.4-10.2) L 11/11/17 04:30 Phosphorus 4.5 mg/dl (2.5-4.5) 11/06/17 17:35 Magnesium 1.6 MG/DL (1.6-2.3) 11/06/17 17:35 Total Bilirubin 0.4 mg/dl (0.2-1.3) 11/06/17 17:35 AST 29 U/L (14-36) 11/06/17 17:35 ALT 32 U/L (9-52) 11/06/17 17:35 Alkaline Phosphatase 75 U/L (38-126) 11/06/17 17:35 Total Creatine Kinase 97 U/L (30-135) 11/06/17 17:35 CK-MB (Mass) 0.91 ng/mL (0.0-3.38) 11/06/17 17:35 Troponin I 0.4640 ng/mL (0.00-0.120) H* 11/07/17 06:30 Total Protein 5.8 G/DL (6.3-8.2) L 11/06/17 17:35 Albumin 2.8 g/dL (3.5-5.0) L 11/06/17 17:35 Globulin 2.9 gm/dL (2.2-3.9) 11/06/17 17:35 Albumin/Globulin Ratio 1.0 (1.0-2.1) 11/06/17 17:35 Triglycerides 194 mg/DL (0-149) H 11/08/17 06:30 Cholesterol 140 mg/dL (0-199) 11/08/17 06:30 LDL Cholesterol Direct 73 mg/dL (0-129) 11/08/17 06:30 HDL Cholesterol 22 MG/DL (30-70) L 11/08/17 06:30 Arterial Blood Potassium 4.0 mmol/L (3.6-5.2) 11/06/17 17:40 Urine Color Yellow (YELLOW) 11/06/17 19:49 Urine Clarity Cloudy (Clear) 11/06/17 19:49 Urine pH 7.0 (5.0-8.0) 11/06/17 19:49 Ur Specific [place] 1.006 (1.003-1.030) 11/06/17 19:49 Urine Protein 30 mg/dL (NEGATIVE) 11/06/17 19:49 Urine Glucose (UA) Neg mg/dL (Normal) 11/06/17 19:49 Urine Ketones Negative mg/dL (NEGATIVE) 11/06/17 19:49 Urine Blood Negative (NEGATIVE) 11/06/17 19:49 Urine Nitrate Negative (NEGATIVE) 11/06/17 19:49 Urine Bilirubin Negative (NEGATIVE) 11/06/17 19:49 Urine Urobilinogen 0.2-1.0 mg/dL (0.2-1.0) 11/06/17 19:49 Ur Leukocyte Esterase Mod Aki/uL (Negative) 11/06/17 19:49 Urine RBC (Auto) 3 /hpf (0-3) 11/06/17 19:49 Urine Microscopic WBC 59 /hpf (0-5) H 11/06/17 19:49 Amorphous Sediment Rare /ul (<OCC) H 11/06/17 19:49 Urine Bacteria Few (<OCC) H 11/06/17 19:49 Hyaline Casts 3-5 /hpf (0-2) H 11/06/17 19:49 Influenza Typ A,B (EIA) Negative for flu a/b (NEGATIVE) 11/06/17 18:53 - Hospital Course Hospital Course: 82 year old female with a past medical history significant for COPD on home oxygen, essential hypertension, Type 2 diabetes mellitus controlled with insulin , history of CHF, anxiety, depression, well known to the hospitalist team from previous admissions,was brought to the ED with altered mental status and decreased po intake. As per the son, the patient has not eaten or drank anything for the past two days at [place]. In the ED, she was noted to be hypotensive , Troponin elevated. The family opted for conservative management . Patient was admitted with of acute on chronic resp failure due to CHF and COPd exacerbation and UTI . She was started on xopenex, Solumedrol IV , high flow o2, lasix IV cardiology and pulmonary were consulted . Clinically patient showed improvement and returned back to her baseline. She was changed to 3 L O2 via NC and saturating well. Her urine cx grew ESBl E. coli and she was started on Meropenem IV as per ID recommendations. Will discharge patient back to [facility] on Meropenem IV for 7 more days. 1. NSTEMI Troponin elevated however trending down Pt and family does not want any aggressive treatment cont medical mgt with ASA, statin, ACEI no BB due to severe COPD Consultation with cardiology appreciated Patient DNR/DNI 2. Acute on Chronic CHF, systolic and diastolic dysfunction ECHO done last year showed EF 35% restarted Lasix - increased dose to 40 mg BID on irbesartan no BB due to COPD 3. Acute on Chronic Respiratory Failure with Hypoxia and Hypercapnea sec to COPD exacerbation and CHF exacerb patient is on home oxygen started High Flow Oxygen and doing well. Changed back to 3 l O2 via NC CXR- Pulm vascular congestion consultation with Dr. Greene appreciated tapered IV Solumedrol 30 q12. Will peg slowly at [facility] Continue Xopenex, singulair 4. Altered mental status improved Likely metabolic encephalopathy related to hypercapnia and UTI Cont to monitor Fall precautions on Meropenem IV 5. DM type II with hyperglycemia worsened by IV Steroids regular insulin sliding scale coverage cont Glipizide increased Levemir( lantus ) to 18 units q hs 6. Anemia of chronic disease stable 7. Anxiety/ depression on trazodone and temazepam at home 8. ESBL E Coli UTI pt started on IV Meropenem ID - Dr Mackay consulted 9.DVT prophylaxis Lovenox Protonix for GI proph Discharge Exam - Head Exam Head Exam: ATRAUMATIC, NORMAL INSPECTION, NORMOCEPHALIC - Eye Exam Eye Exam: PERRL Pupil Exam: NORMAL ACCOMODATION - ENT Exam ENT Exam: Normal Exam - Neck Exam Neck exam: Normal Inspection - Respiratory Exam Respiratory Exam: Prolonged Expiratory Phase, Wheezes (scattered wheezing bilaterally ). absent: Rhonchi - Cardiovascular Exam Cardiovascular Exam: REGULAR RHYTHM, +S1, +S2. absent: JVD - GI/Abdominal Exam GI & Abdominal Exam: Normal Bowel Sounds, Soft. absent: Distended, Guarding, Rebound, Tenderness - Rectal Exam Rectal Exam: Deferred - Extremities Exam Extremities exam: normal inspection, pedal pulses present - Neurological Exam Neurological exam: Alert, CN II-XII Intact, Oriented x3 - Psychiatric Exam Psychiatric exam: Normal Affect - Skin Skin Exam: Dry, Pallor, Warm Discharge Plan - Discharge Medications Prescriptions: Meropenem 500 mg IV Q8 #21 vial - Follow Up Plan Condition: IMPROVED Disposition: TRANSF TO SNF Patient education suggested?: Yes Referrals: Barron Greene MD [Staff Provider] - Tiffany Segundo MD [Family Provider] - Clinical Quality Measures - CQM - Heart Failure Ejection Fraction: Less Than 40 % Left Ventricular Function to be assessed after discharge: No Contraindication/Reason for not providing: on ARB Beta-Oren Prescribed: None Contraindication/Reason for not providing: uncontrolled COPD Angiotensin II Receptor Oren Prescribed: Yes [facility] be [facility] to: [facility]
--- NOTE | 2017-11-11 14:59 | PQF GENQUE ---
Dr. Edouard, Please document cause or type of skin ulcer: ----- versus in agreement with the Wound RN's documentation: skin tear right lower kincaid i.e.: Non-pressure ulcer associated with: Atherosclerosis of lower extremities Chronic venous hypertension Diabetes Postphlebitic syndrome Postthrombotic syndrome Varicose veins Other (please specify) Unknown Other (please specify) Clinically unable to determine Unknown 2. Please document severity of non-pressure ulcer: Limited to breakdown of skin With fat layer exposure With necrosis of muscle With necrosis of bone Unspecified Clinically unable to determine Unknown 3. Please document specific site of skin ulcer, including laterality 4. Please document any associated infectious process associated with ulcer including infectious organism if known Nurses Admission Assessment: POA; Pressure Ulcer: Yes Physician order: Nursing referral for Wound Care Routine: reason for exam: presence of ulcer on admission /2 Wound RN; -Asked to assess patient who presented to hospital with a skin tear to her right lower kincaid. Assessment revealed partial thickness kincaid tear, pink base, no drainage. Recommending to apply xeroform to skin tear, then cover with a dry bulky dressing to be done daily. This form is a permanent part of the medical record Clarification of your documentation is requested to better reflect the severity of illness and intensity of treatment of your patient. Indicators present [] Specify: [] [] Specify: [] [] Specify: [] [] Specify: [] Location in the medical record that reflects the above clinical findings: [] Treatment Provided: [] PHYSICIAN'S RESPONSE Skin tear to her right lower kincaid POA Based on your medical judgment of the clinical indicators outlined above please clarify the following: [] Practitioner response [] If unable to determine, please check the box, sign and date. Present On Admission (POA) Indicator: [] Present at the time of admission [] Not present at the time of admission [] Clinically Undetermined In responding to this query, please exercise your independent professional judgment. The fact that a question is asked does not imply that any particular answer is desired or expected. Thank you for your clarification on this documentation. If you have any questions please call. * Thank you, Nadia Nicolas RN ext. #[phone] MTDD
[2017-11-11 15:25] VITALS: BP 114/64; PULSE 85; RESP 20; TEMP 98.8; O2SAT 99
== END 2017-11-11 16:35 | DRG 280 ==
LOC: H.ER 16:41 → H.ERHOLD 18:11 → H.TEL 21:57
PROVIDERS: ADMIT Internal Medicine; ATTEND Internal Medicine
PROC: 5A0955Z Assistance with Respiratory Ventilation, Greater than 96 Consecutive Hours (ICD-10-PCS; principal; 2017-11-07)
DX: I21.4 Non-ST elevation (NSTEMI) myocardial infarction (principal); J96.21 Acute and chronic respiratory failure with hypoxia; G93.41 Metabolic encephalopathy; I50.43 Acute on chronic combined systolic (congestive) and diastolic (congestive) heart failure; J18.9 Pneumonia, unspecified organism; I95.9 Hypotension, unspecified; I11.0 Hypertensive heart disease with heart failure; J44.1 Chronic obstructive pulmonary disease with (acute) exacerbation; E11.65 Type 2 diabetes mellitus with hyperglycemia; J96.22 Acute and chronic respiratory failure with hypercapnia; N39.0 Urinary tract infection, site not specified; J98.11 Atelectasis; Z99.81 Dependence on supplemental oxygen; D63.8 Anemia in other chronic diseases classified elsewhere; F32.9 Major depressive disorder, single episode, unspecified; F41.9 Anxiety disorder, unspecified; Z66 Do not resuscitate; Z87.891 Personal history of nicotine dependence; E03.9 Hypothyroidism, unspecified; K29.70 Gastritis, unspecified, without bleeding; I25.10 Atherosclerotic heart disease of native coronary artery without angina pectoris; E78.00 Pure hypercholesterolemia, unspecified; B96.20 Unspecified Escherichia coli [E. coli] as the cause of diseases classified elsewhere; M06.9 Rheumatoid arthritis, unspecified; Z79.4 Long term (current) use of insulin; X58.XXXA Exposure to other specified factors, initial encounter; S81.801A Unspecified open wound, right lower leg, initial encounter

== ENCOUNTER 2017-11-24 11:28 | Inpatient (IN) | payer MEDICARE, BC ==
[2017-11-24 11:30] VITALS: BMI 25.4
--- NOTE | 2017-11-24 12:56 | RAD ---
HISTORY: Sepsis Patient COMPARISON: Chest radiograph dated 11/09/2017. FINDINGS: LUNGS: Stable chronic prominence of the bilateral interstitial markings. Left basilar atelectasis. PLEURA: Probable small left pleural effusion. No pneumothorax apparent. CARDIOVASCULAR: Atherosclerotic aortic calcifications. Cardiomediastinal silhouette stably enlarged. OSSEOUS STRUCTURES: Unchanged. VISUALIZED UPPER ABDOMEN: Normal. OTHER FINDINGS: None. IMPRESSION: Left basilar atelectasis and probable small left pleural effusion.
[2017-11-24] MEDS ORDERED: Morphine 4 MG/ML VIAL ONE (12:58)
[2017-11-24 13:09] LABS: BASO % 0.2 % (0.0-2.0); EOS % 0.2 % (0.0-4.0); HEMOGLOBIN 8.7 g/dL (12.0-16.0); LYMPH # 1.2 K/uL (1.0-4.3); LYMPH % 11.5 % (20.0-40.0); MEAN CORPUSCULAR HEMOGLOBIN 30.9 pg (27.0-31.0); MEAN CORPUSCULAR HGB CONC 33.6 g/dL (33.0-37.0); MEAN PLATELET VOLUME 7.8 fl (7.2-11.7); MONO # 0.6 K/uL (0.0-0.8); MONO % 5.2 % (0.0-10.0); NEUT # 8.9 K/uL (1.8-7.0); NEUT % 82.9 % (50.0-75.0); RBC 2.82 Mil/uL (3.80-5.20); RED CELL DISTRIBUTION WIDTH 18.1 % (11.5-14.5); WHITE BLOOD COUNT 10.7 K/uL (4.8-10.8)
[2017-11-24 13:10] LABS: VENOUS BLOOD GAS PCO2 99 mmHg (40-60); VENOUS BLOOD GAS PO2 39 mm/Hg (30-55); VENOUS BLOOD PH 7.18 (7.32-7.43)
[2017-11-24 13:26] LABS: INR 0.9 (0.9-1.2); PARTIAL THROMBOPLASTIN TIME 28.2 Seconds (25.6-37.1); PROTHROMBIN TIME 9.9 Seconds (9.8-13.1)
[2017-11-24 13:29] LABS: ALBUMIN 2.9 g/dL (3.5-5.0); CALCIUM 9.4 mg/dL (8.4-10.2); MAGNESIUM 1.8 MG/DL (1.6-2.3)
[2017-11-24] MEDS ORDERED: Sodium Chloride 0.9% 1,000 ML IV STA ×3 (13:33→16:55)
--- NOTE | 2017-11-24 13:49 | ED PDOC ---
HPI: General Adult Time Seen by Provider: 11/24/17 11:45 Chief Complaint (Nursing): Medical Clearance Chief Complaint (Provider): Hypotension History Per: Patient History/Exam Limitations: no limitations Onset/Duration Of Symptoms: Mins ([employer]) Current Symptoms Are (Timing): Still Present Additional History Per: Family ( and granddaughter) Additional Complaint(s): Katey is an 82 y/o female who was referred to the ED from rehab due to low blood pressure. Patient's blood pressure at the facility was 84/30 but on retest in ED it was 105/55. She has chronic back pain and is also complaining of that. Patient denies fever, vomiting, diarrhea, chest pain, or shortness of breath. PMD: Dr. Coates Past Medical History Reviewed: Historical Data, Nursing Documentation, Vital Signs Vital Signs: Last Vital Signs Temp 98.7 F 11/24/17 11:29 Pulse 118 H 11/24/17 17:30 Resp 24 11/24/17 17:30 BP 139/60 11/24/17 17:30 Pulse Ox 99 11/24/17 18:14 - Medical History PMH: Anemia, Anxiety, Arthritis, Asthma, CAD, CHF, COPD, Depression, Diabetes, Emphysema, Gastritis, HTN, Hypercholesterolemia, Hypothyroidism, Pneumonia, Rheumatoid Arthritis Denies: HIV, Chronic Kidney Disease, Seizures - Surgical History Surgical History: Appendectomy - Family History Family History: States: Unknown Family Hx - Social History Ex-Smoker (has not smoked in the last 12 months): Yes Alcohol: None Drugs: Denies - Home Medications Home Medications: Ambulatory Orders Medication Instructions Recorded Albuterol/Ipratropium [Duoneb 3 3 ml IH Q4H PRN 05/19/17 mg/0.5 mg (3 ml) UD] Doxazosin [Cardura] 8 mg PO DAILY 05/19/17 Glimepiride [amaRYL] 2 mg PO DAILY 05/19/17 Montelukast [Singulair] 10 mg PO HS 05/19/17 Temazepam [Restoril] 30 mg PO HS 05/19/17 Trazodone HCl 150 mg PO HS 05/19/17 Verapamil HCl [Verapamil ER] 240 mg PO DAILY 05/19/17 Multivitamin/Iron/Folic Acid 1 tab PO DAILY 10/12/17 [Centrum Complete Multivit Tab] Acetaminophen/Codeine 1 tab PO Q8 PRN 11/06/17 [Tylenol/Codeine 300 MG/30 MG] Alendronate [Fosamax] 70 mg PO MO 11/06/17 Calcium Carbonate/Vitamin D3 1 tab PO BID 11/06/17 [Caltrate 600 Plus D3 Tablet] Esomeprazole Magnesium [Nexium] 40 mg PO DAILY 11/06/17 Insulin Regular [HumuLIN R] 2 - 6 unit SC AC 11/06/17 Irbesartan 150 mg PO DAILY 11/06/17 Lidocaine 5% [Lidoderm] 1 patch TD DAILY 11/06/17 Magnesium Hydroxide [Milk Of 30 ml PO DAILY PRN 11/06/17 Magnesia] Silver Sulfadiazine 1% 20 gm 1 appl TOP BID 11/06/17 [Silvadene 1% 20 gm] Aspirin [Ecotrin] 81 mg PO DAILY tabec 11/11/17 Enoxaparin [Lovenox] 40 mg SC DAILY syr 11/11/17 Furosemide [Lasix] 40 mg PO BID tab 11/11/17 Insulin Glargine, Recombina 18 unit SC DAILY #0 11/11/17 [Lantus] Levalbuterol [Xopenex] 1.25 mg INH RQ4 neb 11/11/17 Meropenem 500 mg IV Q8 #21 vial 11/11/17 predniSONE [predniSONE Tab] 30 mg PO BID #0 11/11/17 - Allergies Allergies/Adverse Reactions: Allergies Allergy/AdvReac Type Severity Reaction Status Date / Time No Known Allergies Allergy Verified 11/06/17 16:50 Review of Systems ROS Statement: Except As Marked, All Systems Reviewed And Found Negative Constitutional: Negative for: Fever Cardiovascular: Positive for: Other (low blood pressure). Negative for: Chest Pain Respiratory: Negative for: Shortness of Breath Gastrointestinal: Negative for: Vomiting, Diarrhea Musculoskeletal: Positive for: Back Pain Physical Exam - Reviewed Nursing Documentation Reviewed: Yes Vital Signs Reviewed: Yes - Physical Exam Appears: Positive for: Well, Non-toxic, Uncomfortable (pt moaning in pain, tahcypneic) Head Exam: Positive for: ATRAUMATIC, NORMAL INSPECTION Skin: Positive for: Normal Color, Warm, Dry ENT: Negative for: Normal ENT Inspection (dry mucous membranes) Neck: Positive for: Normal Cardiovascular/Chest: Positive for: Regular Rate, Rhythm. Negative for: Murmur Respiratory: Positive for: Normal Breath Sounds. Negative for: Respiratory Distress Gastrointestinal/Abdominal: Positive for: Bowel Sounds, Soft Back: Positive for: Other (sacral ulcer (see note)) Extremity: Positive for: Normal ROM Neurologic/Psych: Positive for: Alert, Oriented - Laboratory Results Result Diagrams: 11/24/17 13:00 11/24/17 13:00 - ECG O2 Sat by Pulse Oximetry: 99 (RA) Pulse Ox Interpretation: Normal - Critical Care Total Time (In Min): 30 Medical Decision Making Medical Decision Making: Time: 12:42 Initial Impression: hypotension -Rule out sepsis, UTI, pneumonia Initial Plan: --VBG --EKG --CMP --Magnesium --Phosphorous --CBC --PTT --Prothrombin Time --Chest XR --Morphine --Blood Culture --Urine C&S --Urine Culture --Urinalysis Time: 14:02 --Three quarter shaped stage 2 sacral ulcers noted on back Time: 15:30 --ABG, BNP, Rocephin and Albuterol treatment ordered. Time: 16:03 --ABG shows elevated CO2. Given history of COPD, Bipap was ordered. --Given antibiotics for UTI --Patient will be admitted to Dr. Zapata, hospitalist --Blood pressure is still low. Bolus of IV fluids ordered --As per patient records, she is DNR, DNI 6 pm pt improving on bipap. blood pressure 100s systolic pt and family at bedside aware of plan, answered question Scribe Attestation: Documented by Aubrey Santos, acting as a scribe for Ema Ayala MD. Provider Scribe Attestation: All medical record entries made by the Scribe were at my direction and personally dictated by me. I have reviewed the chart and agree that the record accurately reflects my personal performance of the history, physical exam, medical decision making, and the department course for this patient. I have also personally directed, reviewed, and agree with the discharge instructions and disposition. Disposition - Clinical Impression Clinical Impression: Sepsis secondary to UTI, COPD (chronic obstructive pulmonary disease) - Patient ED Disposition Is Patient to be Admitted: Yes - Disposition Disposition Time: 14:00 Condition: SERIOUS
[2017-11-24 14:43] LABS: URINE BACTERIA MOD (<OCC); URINE BILIRUBIN NEGATIVE (NEGATIVE); URINE BLOOD NEGATIVE (NEGATIVE); URINE CLARITY CLOUDY (Clear); URINE COLOR YELLOW (YELLOW); URINE GLUCOSE (UA) NEG (Normal); URINE LEUKOCYTE ESTERASE LARGE Leu/uL (Negative); URINE NITRATE NEGATIVE (NEGATIVE); URINE PROTEIN NEGATIVE (NEGATIVE); URINE UROBILINOGEN 0.2-1.0 mg/dL (0.2-1.0)
[2017-11-24] MEDS ORDERED: Albuterol 0.083% Inhal Sol (2.5 mg/3 mL) UD INH ONE (15:38)
[2017-11-24] MEDS ORDERED: Albuterol 0.083% Inhal Sol (2.5 mg/3 mL) UD ONE (15:49)
[2017-11-24] MEDS ORDERED: cefTRIAXone (Rocephin) 1 gm Inj ONE (15:50)
[2017-11-24 16:05] LABS: ABG ALLEN TEST YES; ARTERIAL BLOOD GAS HCO3 37.9 mmol/L (21-28); ARTERIAL BLOOD GAS O2 SAT 99.5 % (95-98); ARTERIAL BLOOD GAS PCO2 50 mm/Hg (35-45); ARTERIAL BLOOD GAS PH 7.53 (7.35-7.45); ARTERIAL BLOOD GAS PO2 135 mm/Hg (80-100); ARTERIAL BLOOD GAS TCO2 43.3 mmol/L (22-28)
[2017-11-24] MEDS ORDERED: Magnesium Hydroxide Susp 30 ml UD PO PRN (16:08)
[2017-11-24] MEDS ORDERED: Albuterol-Ipratrop 3 mg / 0.5 (3 ml) UD IH PRN (16:08)
--- NOTE | 2017-11-24 16:08 | CP.PCM.HP ---
History of Present Illness - History of Present Illness History of Present Illness: CC: was sent for low blood pressure 82 year old female with a past medical history significant for COPD on home oxygen, essential hypertension, Type 2 diabetes mellitus controlled with insulin , history of CHF, anxiety, depression, recently discharged 2 weeks ago for NSTEMI, CHF, acute on chronic respiratory failure, +ESBL UTI presents to the ER , after being sent from [facility] for low blood pressure. On arrival, patient BP was in the 80s systolic and responded to fluids. Patient was found to have UTI again. She had been on Merrem at [facility], repeat Urine Cx sent. One dose ceftriaxone given in ER, Merrem initiated on admission. No WBC, afebrile, patient is chronic retainer, however was placed on bipap in ER with improved ABG. HD stable at this time NAD. ROS: per HPI all other systems reviewed and neg FH: Denies Present on Admission - Present on Admission Any Indicators Present on Admission: No Past Patient History - Infectious Disease Hx of Infectious Diseases: None - Tetanus Immunizations Tetanus Immunization: Unknown - Past Medical History & Family History Past Medical History?: Yes - Past Social History Smoking Status: Former Smoker - CARDIAC Hx Congestive Heart Failure: Yes Hx Hypercholesterolemia: Yes Hx Hypertension: Yes - PULMONARY Hx Asthma: Yes Hx Chronic Obstructive Pulmonary Disease (COPD): Yes Hx Emphysema: Yes Hx Pneumonia: Yes - NEUROLOGICAL Hx Seizures: No - HEENT Hx HEENT Problems: No - RENAL Hx Chronic Kidney Disease: No - ENDOCRINE/METABOLIC Hx Hypothyroidism: Yes - HEMATOLOGICAL/ONCOLOGICAL Hx Anemia: Yes Hx Human Immunodeficiency Virus (HIV): No - INTEGUMENTARY Hx Dermatological Problems: No - MUSCULOSKELETAL/RHEUMATOLOGICAL Hx Arthritis: Yes Hx Rheumatoid Arthritis: Yes - GASTROINTESTINAL Hx Gastritis: Yes - GENITOURINARY/GYNECOLOGICAL Hx Genitourinary Disorders: Yes - PSYCHIATRIC Hx Anxiety: Yes Hx Depression: Yes - SURGICAL HISTORY Hx Appendectomy: Yes - ANESTHESIA Hx Anesthesia: Yes Hx Anesthesia Reactions: No Hx Malignant Hyperthermia: No Meds Allergies/Adverse Reactions: Allergies Allergy/AdvReac Type Severity Reaction Status Date / Time No Known Allergies Allergy Verified 11/06/17 16:50 Physical Exam - Constitutional Appears: Non-toxic, No Acute Distress - Head Exam Head Exam: ATRAUMATIC, NORMOCEPHALIC - Eye Exam Eye Exam: EOMI, Normal appearance, PERRL Pupil Exam: NORMAL ACCOMODATION - ENT Exam ENT Exam: Mucous Membranes Moist, Normal Oropharynx - Respiratory Exam Respiratory Exam: Decreased Breath Sounds, Clear to Auscultation Bilateral, NORMAL BREATHING PATTERN - Cardiovascular Exam Cardiovascular Exam: RRR, +S1, +S2 - GI/Abdominal Exam GI & Abdominal Exam: Normal Bowel Sounds, Soft. absent: Mass, Organomegaly, Tenderness - Extremities Exam Extremities exam: Positive for: normal capillary refill, pedal pulses present - Back Exam Back exam: absent: CVA tenderness (L), CVA tenderness (R) - Neurological Exam Neurological exam: Alert, Reflexes Normal - Psychiatric Exam Psychiatric exam: Normal Affect, Normal Mood - Skin Skin Exam: Dry, Warm Results - Vital Signs Recent Vital Signs: Last Vital Signs Temp 98.7 F 11/24/17 11:29 Pulse 102 H 11/24/17 14:22 Resp 22 11/24/17 14:22 BP 88/57 L 11/24/17 14:22 Pulse Ox 98 11/24/17 14:22 - Labs Result Diagrams: 11/24/17 13:00 11/24/17 13:00 Labs: Laboratory Results - last 24 hr 11/24/17 11/24/17 11/24/17 13:00 13:00 13:00 WBC 10.7 RBC 2.82 L Hgb 8.7 L Hct 25.9 L MCV 92.0 MCH 30.9 MCHC 33.6 RDW 18.1 H Plt Count 193 MPV 7.8 Neut % (Auto) 82.9 H Lymph % (Auto) 11.5 L [place] % (Auto) 5.2 Eos % (Auto) 0.2 Baso % (Auto) 0.2 Neut # 8.9 H Lymph # 1.2 [place] # 0.6 Eos # 0.0 Baso # 0.0 PT 9.9 INR 0.9 APTT 28.2 pCO2 pO2 HCO3 ABG pH ABG Total CO2 ABG O2 Saturation ABG Base Excess Roger Test ABG Potassium VBG pH VBG pCO2 VBG HCO3 VBG Total CO2 VBG O2 Sat (Calc) VBG Base Excess VBG Potassium A-a O2 Difference Sodium 129 L Chloride 83 L Glucose Lactate FiO2 Crit Value Called To Crit Value Called By Crit Value Read Back Blood Gas Notified Time Potassium 4.7 Carbon Dioxide 40 H* Anion Gap 11 BUN 52 H Creatinine 1.1 Est GFR ( Amer) 57 Est GFR (Non-Af Amer) 47 Random Glucose 106 H Calcium 9.4 Phosphorus 3.8 Magnesium 1.8 Total Bilirubin 0.5 AST 25 ALT 36 Alkaline Phosphatase 95 Total Protein 5.8 L Albumin 2.9 L Globulin 2.9 Albumin/Globulin Ratio 1.0 Arterial Blood Potassium Venous Blood Potassium Urine Color Urine Clarity Urine pH Ur Specific [place] Urine Protein Urine Glucose (UA) Urine Ketones Urine Blood Urine Nitrate Urine Bilirubin Urine Urobilinogen Ur Leukocyte Esterase Urine RBC (Auto) Urine Microscopic WBC Urine Bacteria 11/24/17 11/24/17 11/24/17 13:00 14:05 15:50 WBC RBC Hgb Hct MCV MCH MCHC RDW Plt Count MPV Neut % (Auto) Lymph % (Auto) [place] % (Auto) Eos % (Auto) Baso % (Auto) Neut # Lymph # [place] # Eos # Baso # PT INR APTT pCO2 50 H pO2 39 135 H HCO3 37.9 H ABG pH 7.53 H ABG Total CO2 43.3 H ABG O2 Saturation 99.5 H ABG Base Excess 16.6 H Roger Test Yes ABG Potassium 4.4 VBG pH 7.18 L* VBG pCO2 99 H* VBG HCO3 27.8 VBG Total CO2 40.0 H VBG O2 Sat (Calc) 68.7 H VBG Base Excess 5.0 H VBG Potassium > 20.0 H* A-a O2 Difference 88.0 Sodium 120.0 L* 129.0 L Chloride 87.0 L 91.0 L Glucose 104 92 Lactate 2.2 H 0.7 FiO2 21.0 40.0 Crit Value Called To Gracia bowden Crit Value Called By 23 Crit Value Read Back Y Blood Gas Notified Time 1310 Potassium Carbon Dioxide Anion Gap BUN Creatinine Est GFR ( Amer) Est GFR (Non-Af Amer) Random Glucose Calcium Phosphorus Magnesium Total Bilirubin AST ALT Alkaline Phosphatase Total Protein Albumin Globulin Albumin/Globulin Ratio Arterial Blood Potassium 4.4 Venous Blood Potassium > 20.0 H* Urine Color Yellow Urine Clarity Cloudy Urine pH 7.0 Ur Specific [place] 1.010 Urine Protein Negative Urine Glucose (UA) Neg Urine Ketones Negative Urine Blood Negative Urine Nitrate Negative Urine Bilirubin Negative Urine Urobilinogen 0.2-1.0 Ur Leukocyte Esterase Large Urine RBC (Auto) 7 H Urine Microscopic WBC 122 H Urine Bacteria Mod H Assessment & Plan - Assessment and Plan (Free Text) Plan: 82 year old female with a past medical history significant for COPD on home oxygen, essential hypertension, Type 2 diabetes mellitus controlled with insulin , history of CHF, anxiety, depression, recently discharged 2 weeks ago for NSTEMI, CHF, acute on chronic respiratory failure, +ESBL UTI presents to the ER , after being sent from [facility] for low blood pressure. On arrival, patient BP was in the 80s systolic and responded to fluids. Patient was found to have UTI again. She had been on Merrem at [facility], repeat Urine Cx sent. One dose ceftriaxone given in ER, Merrem initiated on admission. No WBC, afebrile, patient is chronic retainer, however was placed on bipap in ER with improved ABG. HD stable at this time NAD. UTI hx ESBL+ repeat urine cx pending afebrile no wbc ID consult Dr. Beauchamp Continue Merrem q8 DM continue glipizide accuchecks ISS Acute on Chronic Respiratory failure, COPD currently on Bipap pt acidotic on arrival to ER, however improved after bipap reevaluate tomorrow for deescalation of o2 supplementation cont bronchodilators, singulair cont Prednisone 30 mg po BID OA cont fosamax HTN cont Cozaar cont Verapamil 240 mg po daily Chronic Back pain cont percocets VTE ppx lovenox
[2017-11-24] MEDS ORDERED: Acetaminophen-Codeine 300/30 mg Tab ONE (18:01)
[2017-11-24] MEDS: Acetaminophen-Codeine 300/30 mg Tab PO PRN (18:02)
[2017-11-24] MEDS: Meropenem 1 GM in Sodium Chloride 0.9% 100 ML IVPB SCH (18:02)
--- NOTE | 2017-11-24 21:36 | CARD ---
APPROVED REPORT EKG Measurement Heart [id number] <Conclusion> Ectopic Atrial rhythm Incomplete right bundle branch block ST & T wave abnormality, consider inferior ischemia ST & T wave abnormality, consider anterolateral ischemia Abnormal ECG
[2017-11-24] MEDS: Insulin Lispro (humaLOG) 100 Units/ml Inj SC SCH (22:32)
[2017-11-25] MEDS: Meropenem 1 GM in Sodium Chloride 0.9% 100 ML IVPB SCH ×3 (01:20→17:18)
[2017-11-25 05:08] LABS: ABG ALLEN TEST YES; ARTERIAL BLOOD GAS HCO3 33.4 mmol/L (21-28); ARTERIAL BLOOD GAS O2 CAPACITY 11.3 mL/dL (16-24); ARTERIAL BLOOD GAS O2 CONTENT 11.4 ML/dL (15-23); ARTERIAL BLOOD GAS O2 SAT 100.6 % (95-98); ARTERIAL BLOOD GAS PCO2 58 mm/Hg (35-45); ARTERIAL BLOOD GAS PH 7.41 (7.35-7.45); ARTERIAL BLOOD GAS PO2 173 mm/Hg (80-100); ARTERIAL BLOOD GAS TCO2 38.6 mmol/L (22-28)
[2017-11-25] MEDS ORDERED: GlipiZIDE 5 mg SR Tab PO SCH (09:00)
[2017-11-25] MEDS ORDERED: Insulin Detemir 100 Units/ml Inj SC SCH ×2 (09:00→22:00)
[2017-11-25] MEDS ORDERED: Verapamil 120 mg ER Tab PO SCH (09:00)
[2017-11-25] MEDS: Insulin Lispro (humaLOG) 100 Units/ml Inj SC SCH ×4 (09:04→22:14)
[2017-11-25] MEDS: Enoxaparin 40 mg Syringe SC SCH (09:07)
[2017-11-25] MEDS: Pantoprazole 40 mg EC Tab PO SCH (09:09)
--- NOTE | 2017-11-25 10:07 | PQF GENQUE ---
Dr. Zapata, 1. Please specify location of pressure ulcer: if in agreement with risk specialist and please see ER MD documentation as listed below. Body site(s) involved Laterality (bilateral, left, right) Other (please specify) Clinically unable to determine Unknown 2. Please specify POA status of each pressure ulcer: Not present on admission Present on admission Other (please specify) Clinically unable to determine Unknown 3. Please specify stage of each pressure ulcer (National Pressure Ulcer Advisory Panel definitions): Stage I: Intact skin with non-blanchable redness of a localized area Stage II: Partial thickness skin loss involving dermis with a shallow open ulcer or an open serum-filled blister Stage III: Full thickness skin loss involving damage or necrosis of subcutaneous tissue Stage IV: Full thickness skin loss with exposed bone, tendon or muscle Unstageable: Full thickness tissue loss in which the base of the of ulcer is covered by slough and/or eschar in the wound bed Deep tissue Injury (DTI):Purple or maroon localized area of intact skin due to damage of underlying soft tissue from pressure and/or shear Other (please specify) Clinically unable to determine Unknown 4. If ulcer is not due to pressure, please specify other cause of ulcer (e.g., diabetes, PVD, varicose veins) ER MD: Three quarter shaped stage 2 sacral ulcers noted on back 11/25:Wound RN: sacrum and upper buttocks have a stage 1 13 cm x 12 cm with 2 stage 3 PI's on the right, medial, upper buttock. Etiology is most likely pressure and moisture --There is also a stage 2 PI on her right lower back--- hydrocolloid was applied to the right buttock injuries 11/25@03:08;:Nursing Pressure Ulcer Assessment: Sacrum: Partial thickness loss of dermis presenting as a shallow open ulcer This form is a permanent part of the medical record Clarification of your documentation is requested to better reflect the severity of illness and intensity of treatment of your patient. Indicators present [] Specify: [] [] Specify: [] [] Specify: [] [] Specify: [] Location in the medical record that reflects the above clinical findings: [] Treatment Provided: [] PHYSICIAN'S RESPONSE sacrum and upper buttocks have a stage 1 13 cm x 12 cm with 2 stage 3 PI's on the right, medial, upper buttock. stage 2 PI on her right lower back ( POA) Based on your medical judgment of the clinical indicators outlined above please clarify the following: [] Practitioner response [] If unable to determine, please check the box, sign and date. Present On Admission (POA) Indicator: [] Present at the time of admission [] Not present at the time of admission [] Clinically Undetermined In responding to this query, please exercise your independent professional judgment. The fact that a question is asked does not imply that any particular answer is desired or expected. Thank you for your clarification on this documentation. If you have any questions please call. * Thank you, Nadia Nicolas RN ext. #[phone] MTDD
--- NOTE | 2017-11-25 10:15 | CP.PCM.PN ---
Subjective - Date & Time of Evaluation Date of Evaluation: 11/25/17 Time of Evaluation: 10:30 - Subjective Subjective: No fever denies CP SOB better refused to keep Bipap on - saturation now better on just NC 4 liters no abd pain poor PO intake- glucose sl low this am Discussed with pt and need for blood transfusion, riska nd benefits discussed , agreed and signed consent Objective - Vital Signs/Intake and Output Vital Signs (last 24 hours): Temp Pulse Resp BP Pulse Ox 97.5 F L 71 18 152/72 H 98 11/25/17 08:00 11/25/17 09:09 11/25/17 08:00 11/25/17 09:12 11/25/17 08:00 - Medications Medications: Current Medications Acetaminophen/Codeine Phosphate (Tylenol/Codeine 300 Mg/30 Mg) 1 tab PO Q8 PRN PRN Reason: Pain, moderate (4-7) Last Admin: 11/24/17 18:02 Dose: 1 tab Albuterol/Ipratropium (Duoneb 3 Mg/0.5 Mg (3 Ml) Ud) 3 ml IH Q4H PRN PRN Reason: Shortness of Breath Alendronate Sodium (Fosamax) 70 mg PO MO ZIA Aspirin (Ecotrin) 81 mg PO DAILY [facility] Last Admin: 11/25/17 09:08 Dose: 81 mg Doxazosin Mesylate (Cardura) 8 mg PO DAILY [facility] Last Admin: 11/25/17 09:08 Dose: 8 mg Enoxaparin Sodium (Lovenox) 40 mg SC DAILY ZIA PRN Reason: Protocol Last Admin: 11/25/17 09:07 Dose: 40 mg Furosemide (Lasix) 40 mg PO DAILY [facility] Last Admin: 11/25/17 09:12 Dose: 40 mg Glipizide (Glucotrol Xl) 5 mg PO DAILY [facility] Last Admin: 11/25/17 09:08 Dose: 5 mg Meropenem 1 gm/ Sodium (Chloride) 100 mls @ 100 mls/hr IVPB Q8 ZIA PRN Reason: Protocol Last Admin: 11/25/17 09:13 Dose: 100 mls/hr Insulin Detemir (Levemir) 18 units SC DAILY [facility] Last Admin: 11/25/17 09:07 Dose: Not Given Insulin Human Lispro (Humalog) 0 units SC ACHS [facility] PRN Reason: Protocol Last Admin: 11/25/17 09:04 Dose: Not Given Losartan Potassium (Cozaar) 50 mg PO DAILY [facility] Last Admin: 11/25/17 09:09 Dose: 50 mg Magnesium Hydroxide (Milk Of Magnesia) 30 ml PO DAILY PRN PRN Reason: Constipation Montelukast Sodium (Singulair) 10 mg PO HS [facility] Last Admin: 11/24/17 22:32 Dose: 10 mg Pantoprazole Sodium (Protonix Ec Tab) 40 mg PO DAILY [facility] Last Admin: 11/25/17 09:09 Dose: 40 mg Prednisone (Prednisone Tab) 30 mg PO BID [facility] Last Admin: 11/25/17 09:08 Dose: 30 mg Temazepam (Restoril) 30 mg PO [facility] Last Admin: 11/24/17 22:33 Dose: 30 mg Trazodone HCl (Desyrel) 150 mg PO HS [facility] Last Admin: 11/24/17 22:32 Dose: 150 mg Verapamil HCl (Calan Sr Tab) 240 mg PO DAILY [facility] Last Admin: 11/25/17 09:08 Dose: 240 mg - Labs Labs: 11/24/17 13:00 11/24/17 13:00 PT 9.9 Seconds (9.8-13.1) 11/24/17 13:00 INR 0.9 (0.9-1.2) 11/24/17 13:00 APTT 28.2 Seconds (25.6-37.1) 11/24/17 13:00 - Constitutional Appears: Non-toxic, No Acute Distress, Chronically Ill - Head Exam Head Exam: NORMAL INSPECTION, NORMOCEPHALIC - Eye Exam Eye Exam: EOMI, Normal appearance Pupil Exam: NORMAL ACCOMODATION - ENT Exam ENT Exam: Mucous Membranes Dry, Normal External Ear Exam - Neck Exam Neck Exam: Full ROM. absent: Meningismus - Respiratory Exam Respiratory Exam: Rales, Rhonchi - Cardiovascular Exam Cardiovascular Exam: REGULAR RHYTHM, +S1, +S2 - GI/Abdominal Exam GI & Abdominal Exam: Soft, Normal Bowel Sounds. absent: Tenderness - Extremities Exam Extremities Exam: Normal Capillary Refill. absent: Calf Tenderness, Pedal Edema - Back Exam Back Exam: absent: CVA tenderness (L), CVA tenderness (R) - Neurological Exam Neurological Exam: Alert, Awake Additional comments: oriented to person and place - Psychiatric Exam Psychiatric exam: Normal Affect, Normal Mood - Skin Skin Exam: Dry, Pallor, Warm Assessment and Plan - Assessment and Plan (Free Text) Assessment: 82 year old female with a past medical history significant for COPD on home oxygen, essential hypertension, Type 2 diabetes mellitus controlled with insulin , history of CHF, anxiety, depression, recently discharged 2 weeks ago for NSTEMI, CHF, acute on chronic respiratory failure, +ESBL UTI presents to the ER , after being sent from [facility] for low blood pressure. On arrival, patient BP was in the 80s systolic and responded to fluids. Found to have ? UTI. Lactic acid elevated. She had been on Merrem at [facility] ( discharged on 11/11/17) 1. Sepsis sec to ? UTI Pt was hypotensive on admission, with elevated Lactic acid no fever, no leukocytosis Urinalysis shows large leuko, KMM=[id number] previous admission - pt had ESBL E coli ID consulted- DR Beauchamp cont IV Meropenem Blood c/s today : GRam + cocci in cluster Discussed with ID - rec to start IV vanco rpt Blood c/s in am 2. Acute on Chronic CHF, systolic and diastolic dysfunction ECHO done last year showed EF 35% restarted Lasix and ARB no BB due to COPD 3. Acute on Chronic Respiratory Failure with Hypoxia and Hypercapnea sec to COPD exacerbation and CHF Pt started on Bipap this am felt better and refused to keep Bipap - placed on NC 4 L Pulm consult cont Duonebs cont PRednisone 30 mg bhid 4. 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 DM type II Accucheck with coverage pt's glucose low bec of poor PO intake will decrease Levemir dose 6. Anemia of chronic disease worsened hgb 7.9 will transfuse 1 unit PRBC 7. Anxiety/ depression on trazodone and temazepam at home DVT prophylaxis Lovenox
--- NOTE | 2017-11-25 10:19 | PQF GENQUE ---
Dr. simpson, Please specify the type and acuity of heart failure in your progress notes: versus hx. of CHF and not a chronic condition? 1. TYPE: Combined systolic and diastolic Heart failure with reduced ejection fraction and diastolic dysfunction Diastolic HFpEF Systolic HFrEF Left heart failure Right heart failure Right heart failure due to left heart failure High Output failure End stage heart failure Other (please specify) Clinically unable to determine Unknown 2. ACUITY: Acute Chronic Acute on chronic Other (please specify) Clinically unable to determine Unknown CXR:Imp.: Left basilar atelectasis and probable small left pleural effusion. H and P: Hx. of CHF; Lasix oral daily This form is a permanent part of the medical record Clarification of your documentation is requested to better reflect the severity of illness and intensity of treatment of your patient. Indicators present [] Specify: [] [] Specify: [] [] Specify: [] [] Specify: [] Location in the medical record that reflects the above clinical findings: [] Treatment Provided: [] PHYSICIAN'S RESPONSE Chronic CHF, systolic and diastolic dysfunction Based on your medical judgment of the clinical indicators outlined above please clarify the following: [] Practitioner response [] If unable to determine, please check the box, sign and date. Present On Admission (POA) Indicator: [] Present at the time of admission [] Not present at the time of admission [] Clinically Undetermined In responding to this query, please exercise your independent professional judgment. The fact that a question is asked does not imply that any particular answer is desired or expected. Thank you for your clarification on this documentation. If you have any questions please call. * Thank you, Nadia Nicolas RN ext. #[phone] MTDD
[2017-11-25] MEDS ORDERED: Sodium Chloride 3% for Inhalation 4 ML VIAL.NEB IH PRN (10:22)
--- NOTE | 2017-11-25 10:24 | PQF GENQUE ---
Dr. Zapata, Please provide specificity regarding Acute on Chronic : Respiratory Failure: 1. Please specify type: With hypercapnia With hypoxia With hypercapnia and hypoxia Other (please specify) Clinically unable to determine Unknown 2. Please specify underlying cause: if known Due to procedure Due to trauma Due to underlying respiratory disease (please specify) Other cause (please specify) Clinically unable to determine Unknown H and P: Acute on Chronic Respiratory failure, COPD ;currently on Bipap pt acidotic on arrival to ER, however improved after bipap reevaluate tomorrow for deescalation of o2 supplementation cont bronchodilators, singulair cont Prednisone 30 mg po BID This form is a permanent part of the medical record Clarification of your documentation is requested to better reflect the severity of illness and intensity of treatment of your patient. Indicators present [] Specify: [] [] Specify: [] [] Specify: [] [] Specify: [] Location in the medical record that reflects the above clinical findings: [] Treatment Provided: [] PHYSICIAN'S RESPONSE Acute on chronic resp failure with hypoxia and hypercapnea Based on your medical judgment of the clinical indicators outlined above please clarify the following: [] Practitioner response [] If unable to determine, please check the box, sign and date. Present On Admission (POA) Indicator: [] Present at the time of admission [] Not present at the time of admission [] Clinically Undetermined In responding to this query, please exercise your independent professional judgment. The fact that a question is asked does not imply that any particular answer is desired or expected. Thank you for your clarification on this documentation. If you have any questions please call. * Thank you, Nadia Nicolas RN ext. #[phone] MTDD
[2017-11-25] MEDS ORDERED: Albuterol-Ipratrop 3 mg / 0.5 (3 ml) UD IH SCH (10:30)
[2017-11-25 10:37] LABS: HEMOGLOBIN 7.7 g/dL (12.0-16.0); MEAN CELL VOLUME 92.2 fl (81.0-99.0); MEAN CORPUSCULAR HEMOGLOBIN 30.8 pg (27.0-31.0); MEAN CORPUSCULAR HGB CONC 33.4 g/dL (33.0-37.0); RBC 2.51 Mil/uL (3.80-5.20); RED CELL DISTRIBUTION WIDTH 18.1 % (11.5-14.5); WHITE BLOOD COUNT 8.6 K/uL (4.8-10.8)
--- NOTE | 2017-11-25 10:48 | PQF GENQUE ---
Dr. Marroquin, Sepsis ruled in or is Sepsis ruled out? Please provide corresponding diagnosis for patient's clinical picture and associated treatment Patient had sepsis which is now resolved Other condition (please specify) Clinically unable to determine Unknown WBC: 10.7 left shift Pulse:102->109->118->98->110->102 B/P: 84/30->105/55->88/57->82/46-.122/85 Respirations:22->24->24->24 ER : 82 y/o female who was referred to the ED from rehab due to low blood pressure. Patient's B/P at the facility was 84/30 but on retest in ED it was 105/55. PE: Uncomfortable (pt moaning in pain, tahcypneic) Time: 16:03 --ABG shows elevated CO2. Given history of COPD, Bipap was ordered. --Given antibiotics for UTI --Blood pressure is still low. Bolus of IV fluids ordered Clinical Impression: Sepsis secondary to UTI, COPD (chronic obstructive pulmonary disease) H and P; dxs. include UTI, Acute on Chronic Respiratory Failure, COPD This form is a permanent part of the medical record Clarification of your documentation is requested to better reflect the severity of illness and intensity of treatment of your patient. Indicators present [] Specify: [] [] Specify: [] [] Specify: [] [] Specify: [] Location in the medical record that reflects the above clinical findings: [] Treatment Provided: [] PHYSICIAN'S RESPONSE Sepsis, POA Based on your medical judgment of the clinical indicators outlined above please clarify the following: [] Practitioner response [] If unable to determine, please check the box, sign and date. Present On Admission (POA) Indicator: [] Present at the time of admission [] Not present at the time of admission [] Clinically Undetermined In responding to this query, please exercise your independent professional judgment. The fact that a question is asked does not imply that any particular answer is desired or expected. Thank you for your clarification on this documentation. If you have any questions please call. * Thank you, Nadia Nicolas RN ext. #[phone] MTDD
--- NOTE | 2017-11-25 10:51 | PQF GENQUE ---
Dr. Marroquin, Please specify type of COPD: Acute bronchitis with COPD Asthma with COPD With acute exacerbation With status asthmaticus Without status asthmaticus Bronchiectasis Chronic obstructive bronchitis Exacerbation of COPD Emphysema Other COPD (please specify) Clinically unable to determine Unknown Acute on Chronic Respiratory failure, COPD currently on Bipap pt acidotic on arrival to ER, however improved after bipap reevaluate tomorrow for deescalation of o2 supplementation cont bronchodilators, singulair cont Prednisone 30 mg po BID This form is a permanent part of the medical record Clarification of your documentation is requested to better reflect the severity of illness and intensity of treatment of your patient. Indicators present [] Specify: [] [] Specify: [] [] Specify: [] [] Specify: [] Location in the medical record that reflects the above clinical findings: [] Treatment Provided: [] PHYSICIAN'S RESPONSE COPD exacerbation Based on your medical judgment of the clinical indicators outlined above please clarify the following: [] Practitioner response [] If unable to determine, please check the box, sign and date. Present On Admission (POA) Indicator: [] Present at the time of admission [] Not present at the time of admission [] Clinically Undetermined In responding to this query, please exercise your independent professional judgment. The fact that a question is asked does not imply that any particular answer is desired or expected. Thank you for your clarification on this documentation. If you have any questions please call. * Thank you, Nadia Nicolas RN ext. #[phone] MTDD
[2017-11-25 10:55] LABS: BLOOD UREA NITROGEN 36 mg/dl (7-17); CALCIUM 9.4 mg/dL (8.4-10.2); GFR AFRICAN-AMERICAN > 60; GFR NON-AFRICAN AMERICAN > 60
--- NOTE | 2017-11-25 11:34 | CP.PCM.CON ---
History of Present Illness - History of Present Illness History of Present Illness: Infectious Disease Consultation Note- asked to see this patient at the request of hospitalist for ESBL UTI HPI- History obtained from the medical chart and pt. and her who is at her bedside. Patient is a 82 year old female with pmh of COPD on home O2, CHF, HTN, DM II who was apparently recently d/c to [facility] and during that admission she was NSTEMI , CHF and also was found to have ESBL UTI and was started on IV meropenem during her last admission by the ID doc that saw her on last visit and was being continued at [facility], however, pt. was found to be hypotensive in [facility] ad that is why she was sent to ED and admitted this time. Patient currently is resting in bed in [facility] and denies any complaints. Review of Systems - Review of Systems Review of Systems: ROS- denies any fever or chills, denies any cough, denies any ZIEGLER, denies any chest pain, denies any sob, denies any abd. pain, denies any dysurea, denies any bad. pain, denies any N/V denies any diarrhea Past Patient History - Infectious Disease Hx of Infectious Diseases: None - Tetanus Immunizations Tetanus Immunization: Unknown - Past Medical History & Family History Past Medical History?: Yes - Past Social History Smoking Status: Former Smoker Alcohol: None Drugs: Denies - CARDIAC Hx Congestive Heart Failure: Yes Hx Hypercholesterolemia: Yes Hx Hypertension: Yes - PULMONARY Hx Asthma: Yes Hx Chronic Obstructive Pulmonary Disease (COPD): Yes Hx Emphysema: Yes Hx Pneumonia: Yes - HEENT Hx HEENT Problems: No - RENAL Hx Chronic Kidney Disease: No - ENDOCRINE/METABOLIC Hx Diabetes Mellitus Type 2: Yes Hx Hypothyroidism: Yes - HEMATOLOGICAL/ONCOLOGICAL Hx Anemia: Yes - INTEGUMENTARY Hx Dermatological Problems: No - MUSCULOSKELETAL/RHEUMATOLOGICAL Hx Arthritis: Yes Hx Falls: No Hx Rheumatoid Arthritis: Yes - GASTROINTESTINAL Hx Gastritis: Yes - GENITOURINARY/GYNECOLOGICAL Hx Genitourinary Disorders: Yes - PSYCHIATRIC Hx Anxiety: Yes Hx Depression: Yes Hx Substance Use: No - SURGICAL HISTORY Hx Appendectomy: Yes - ANESTHESIA Hx Anesthesia: Yes Hx Anesthesia Reactions: No Hx Malignant Hyperthermia: No Has any member of the family had a problem w/ anesthesia?: No Meds Allergies/Adverse Reactions: Allergies Allergy/AdvReac Type Severity Reaction Status Date / Time No Known Allergies Allergy Verified 11/06/17 16:50 - Medications Medications: Current Medications Acetaminophen/Codeine Phosphate (Tylenol/Codeine 300 Mg/30 Mg) 1 tab PO Q8 PRN PRN Reason: Pain, moderate (4-7) Last Admin: 11/24/17 18:02 Dose: 1 tab Albuterol/Ipratropium (Duoneb 3 Mg/0.5 Mg (3 Ml) Ud) [address] [facility] Alendronate Sodium (Fosamax) [address] [facility] Aspirin (Ecotrin) [address] [facility] Last Admin: 11/25/17 09:08 Dose: 81 mg Doxazosin Mesylate (Cardura) [address] [facility] Last Admin: 11/25/17 09:08 Dose: 8 mg Enoxaparin Sodium (Lovenox) [address] [facility] PRN Reason: Protocol Last Admin: 11/25/17 09:07 Dose: 40 mg Furosemide (Lasix) [address] [facility] Last Admin: 11/25/17 09:12 Dose: 40 mg Glipizide (Glucotrol Xl) [address] [facility] Last Admin: 11/25/17 09:08 Dose: 5 mg Meropenem 1 gm/ Sodium (Chloride) 100 mls @ 100 mls/hr IVPB Q8 [facility] PRN Reason: Protocol Last Admin: 11/25/17 09:13 Dose: 100 mls/hr Insulin Detemir (Levemir) [address] [facility] Last Admin: 11/25/17 09:07 Dose: Not Given Insulin Human Lispro (Humalog) [address] [facility] PRN Reason: Protocol Last Admin: 11/25/17 09:04 Dose: Not Given Losartan Potassium (Cozaar) [address] [facility] Last Admin: 11/25/17 09:09 Dose: 50 mg Magnesium Hydroxide (Milk Of Magnesia) 30 ml PO DAILY PRN PRN Reason: Constipation Montelukast Sodium (Singulair) [address] [facility] Last Admin: 11/24/17 22:32 Dose: 10 mg Pantoprazole Sodium (Protonix Ec Tab) [address] [facility] Last Admin: 11/25/17 09:09 Dose: 40 mg Prednisone (Prednisone Tab) [address] [facility] Last Admin: 11/25/17 09:08 Dose: 30 mg Temazepam (Restoril) [address] [facility] Last Admin: 11/24/17 22:33 Dose: 30 mg Trazodone HCl (Desyrel) [address] [facility] Last Admin: 11/24/17 22:32 Dose: 150 mg Verapamil HCl (Calan Sr Tab) [address] [facility] Last Admin: 11/25/17 09:08 Dose: 240 mg Physical Exam - Constitutional Appears: No Acute Distress - Head Exam Head Exam: ATRAUMATIC - Eye Exam Eye Exam: EOMI, PERRL - ENT Exam ENT Exam: Normal Oropharynx - Neck Exam Neck exam: Positive for: Full Rom - Respiratory Exam Respiratory Exam: Clear to Auscultation Bilateral, NORMAL BREATHING PATTERN - Cardiovascular Exam Cardiovascular Exam: RRR, +S1, +S2 - GI/Abdominal Exam GI & Abdominal Exam: Normal Bowel Sounds, Soft Additional comments: NT, ND No CVA tenderness - Extremities Exam Additional comments: no edema b/l LE - Neurological Exam Neurological exam: Alert Results - Vital Signs Recent Vital Signs: Last Vital Signs Temp 97.5 F L 11/25/17 08:00 Pulse 71 11/25/17 09:09 Resp 18 11/25/17 08:00 BP 152/72 H 11/25/17 09:12 Pulse Ox 98 11/25/17 08:00 - Labs Result Diagrams: 11/25/17 10:20 11/25/17 10:20 Labs: Laboratory Results - last 24 hr 11/24/17 11/24/17 11/24/17 13:00 13:00 13:00 WBC 10.7 RBC 2.82 L Hgb 8.7 L Hct 25.9 L MCV 92.0 MCH 30.9 MCHC 33.6 RDW 18.1 H Plt Count 193 MPV 7.8 Neut % (Auto) 82.9 H Lymph % (Auto) 11.5 L Sanders % (Auto) 5.2 Eos % (Auto) 0.2 Baso % (Auto) 0.2 Neut # 8.9 H Lymph # 1.2 Sanders # 0.6 Eos # 0.0 Baso # 0.0 PT 9.9 INR 0.9 APTT 28.2 pCO2 pO2 HCO3 ABG pH ABG Total CO2 ABG O2 Saturation ABG O2 Content ABG Base Excess ABG Hemoglobin ABG Carboxyhemoglobin POC ABG HHb (Measured) ABG Methemoglobin ABG O2 Capacity Roger Test ABG Potassium VBG pH VBG pCO2 VBG HCO3 VBG Total CO2 VBG O2 Sat (Calc) VBG Base Excess VBG Potassium A-a O2 Difference Hgb O2 Saturation Sodium 129 L Chloride 83 L Glucose Lactate Vent Mode FiO2 Tidal Volume Inspiratory BiPAP Expiratory BiPAP Crit Value Called To Crit Value Called By Crit Value Read Back Blood Gas Notified Time Potassium 4.7 Carbon Dioxide 40 H* Anion Gap 11 BUN 52 H Creatinine 1.1 Est GFR ( Amer) 57 Est GFR (Non-Af Amer) 47 POC Glucose (mg/dL) Random Glucose 106 H Calcium 9.4 Phosphorus 3.8 Magnesium 1.8 Total Bilirubin 0.5 AST 25 ALT 36 Alkaline Phosphatase 95 NT-Pro-B Natriuret Pep Total Protein 5.8 L Albumin 2.9 L Globulin 2.9 Albumin/Globulin Ratio 1.0 Arterial Blood Potassium Venous Blood Potassium Urine Color Urine Clarity Urine pH Ur Specific [place] Urine Protein Urine Glucose (UA) Urine Ketones Urine Blood Urine Nitrate Urine Bilirubin Urine Urobilinogen Ur Leukocyte Esterase Urine RBC (Auto) Urine Microscopic WBC Urine Bacteria 11/24/17 11/24/17 11/24/17 13:00 14:05 15:50 WBC RBC Hgb Hct MCV MCH MCHC RDW Plt Count MPV Neut % (Auto) Lymph % (Auto) Sanders % (Auto) Eos % (Auto) Baso % (Auto) Neut # Lymph # Sanders # Eos # Baso # PT INR APTT pCO2 50 H pO2 39 135 H HCO3 37.9 H ABG pH 7.53 H ABG Total CO2 43.3 H ABG O2 Saturation 99.5 H ABG O2 Content ABG Base Excess 16.6 H ABG Hemoglobin ABG Carboxyhemoglobin POC ABG HHb (Measured) ABG Methemoglobin ABG O2 Capacity Roger Test Yes ABG Potassium 4.4 VBG pH 7.18 L* VBG pCO2 99 H* VBG HCO3 27.8 VBG Total CO2 40.0 H VBG O2 Sat (Calc) 68.7 H VBG Base Excess 5.0 H VBG Potassium > 20.0 H* A-a O2 Difference 88.0 Hgb O2 Saturation Sodium 120.0 L* 129.0 L Chloride 87.0 L 91.0 L Glucose 104 92 Lactate 2.2 H 0.7 Vent Mode FiO2 21.0 40.0 Tidal Volume Inspiratory BiPAP Expiratory BiPAP Crit Value Called To Gracia bowden Crit Value Called By 23 Crit Value Read Back Y Blood Gas Notified Time 1310 Potassium Carbon Dioxide Anion Gap BUN Creatinine Est GFR ( Amer) Est GFR (Non-Af Amer) POC Glucose (mg/dL) Random Glucose Calcium Phosphorus Magnesium Total Bilirubin AST ALT Alkaline Phosphatase NT-Pro-B Natriuret Pep Total Protein Albumin Globulin Albumin/Globulin Ratio Arterial Blood Potassium 4.4 Venous Blood Potassium > 20.0 H* Urine Color Yellow Urine Clarity Cloudy Urine pH 7.0 Ur Specific [place] 1.010 Urine Protein Negative Urine Glucose (UA) Neg Urine Ketones Negative Urine Blood Negative Urine Nitrate Negative Urine Bilirubin Negative Urine Urobilinogen 0.2-1.0 Ur Leukocyte Esterase Large Urine RBC (Auto) 7 H Urine Microscopic WBC 122 H Urine Bacteria Mod H 11/24/17 11/24/17 11/25/17 15:50 21:45 04:41 WBC RBC Hgb Hct MCV MCH MCHC RDW Plt Count MPV Neut % (Auto) Lymph % (Auto) Sanders % (Auto) Eos % (Auto) Baso % (Auto) Neut # Lymph # Sanders # Eos # Baso # PT INR APTT pCO2 58 H pO2 173 H HCO3 33.4 H ABG pH 7.41 ABG Total CO2 38.6 H ABG O2 Saturation 100.6 H ABG O2 Content 11.4 L ABG Base Excess 10.8 H ABG Hemoglobin 8.0 L ABG Carboxyhemoglobin 1.9 H POC ABG HHb (Measured) -0.6 L ABG Methemoglobin 0.7 ABG O2 Capacity 11.3 L Roger Test Yes ABG Potassium VBG pH VBG pCO2 VBG HCO3 VBG Total CO2 VBG O2 Sat (Calc) VBG Base Excess VBG Potassium A-a O2 Difference 111.0 Hgb O2 Saturation 98.0 Sodium Chloride Glucose Lactate Vent Mode Bipap FiO2 50.0 Tidal Volume 12 Inspiratory BiPAP 10 Expiratory BiPAP 4 Crit Value Called To Crit Value Called By Crit Value Read Back Blood Gas Notified Time Potassium Carbon Dioxide Anion Gap BUN Creatinine Est GFR ( Amer) Est GFR (Non-Af Amer) POC Glucose (mg/dL) 93 Random Glucose Calcium Phosphorus Magnesium Total Bilirubin AST ALT Alkaline Phosphatase NT-Pro-B Natriuret Pep 148 Total Protein Albumin Globulin Albumin/Globulin Ratio Arterial Blood Potassium Venous Blood Potassium Urine Color Urine Clarity Urine pH Ur Specific [place] Urine Protein Urine Glucose (UA) Urine Ketones Urine Blood Urine Nitrate Urine Bilirubin Urine Urobilinogen Ur Leukocyte Esterase Urine RBC (Auto) Urine Microscopic WBC Urine Bacteria 11/25/17 11/25/17 11/25/17 05:27 10:20 10:20 WBC 8.6 RBC 2.51 L Hgb 7.7 L Hct 23.2 L MCV 92.2 MCH 30.8 MCHC 33.4 RDW 18.1 H Plt Count 159 MPV Neut % (Auto) Lymph % (Auto) Sanders % (Auto) Eos % (Auto) Baso % (Auto) Neut # Lymph # Sanders # Eos # Baso # PT INR APTT pCO2 pO2 HCO3 ABG pH ABG Total CO2 ABG O2 Saturation ABG O2 Content ABG Base Excess ABG Hemoglobin ABG Carboxyhemoglobin POC ABG HHb (Measured) ABG Methemoglobin ABG O2 Capacity Roger Test ABG Potassium VBG pH VBG pCO2 VBG HCO3 VBG Total CO2 VBG O2 Sat (Calc) VBG Base Excess VBG Potassium A-a O2 Difference Hgb O2 Saturation Sodium 135 Chloride 94 L Glucose Lactate Vent Mode FiO2 Tidal Volume Inspiratory BiPAP Expiratory BiPAP Crit Value Called To Crit Value Called By Crit Value Read Back Blood Gas Notified Time Potassium 4.5 Carbon Dioxide 36 H Anion Gap 10 BUN 36 H Creatinine 0.8 Est GFR ( Amer) > 60 Est GFR (Non-Af Amer) > 60 POC Glucose (mg/dL) 115 H Random Glucose 100 Calcium 9.4 Phosphorus Magnesium Total Bilirubin AST ALT Alkaline Phosphatase NT-Pro-B Natriuret Pep Total Protein Albumin Globulin Albumin/Globulin Ratio Arterial Blood Potassium Venous Blood Potassium Urine Color Urine Clarity Urine pH Ur Specific [place] Urine Protein Urine Glucose (UA) Urine Ketones Urine Blood Urine Nitrate Urine Bilirubin Urine Urobilinogen Ur Leukocyte Esterase Urine RBC (Auto) Urine Microscopic WBC Urine Bacteria 11/25/17 10:55 WBC RBC Hgb Hct MCV MCH MCHC RDW Plt Count MPV Neut % (Auto) Lymph % (Auto) Sanders % (Auto) Eos % (Auto) Baso % (Auto) Neut # Lymph # Sanders # Eos # Baso # PT INR APTT pCO2 pO2 HCO3 ABG pH ABG Total CO2 ABG O2 Saturation ABG O2 Content ABG Base Excess ABG Hemoglobin ABG Carboxyhemoglobin POC ABG HHb (Measured) ABG Methemoglobin ABG O2 Capacity Roger Test ABG Potassium VBG pH VBG pCO2 VBG HCO3 VBG Total CO2 VBG O2 Sat (Calc) VBG Base Excess VBG Potassium A-a O2 Difference Hgb O2 Saturation Sodium Chloride Glucose Lactate Vent Mode FiO2 Tidal Volume Inspiratory BiPAP Expiratory BiPAP Crit Value Called To Crit Value Called By Crit Value Read Back Blood Gas Notified Time Potassium Carbon Dioxide Anion Gap BUN Creatinine Est GFR ( Amer) Est GFR (Non-Af Amer) POC Glucose (mg/dL) 93 Random Glucose Calcium Phosphorus Magnesium Total Bilirubin AST ALT Alkaline Phosphatase NT-Pro-B Natriuret Pep Total Protein Albumin Globulin Albumin/Globulin Ratio Arterial Blood Potassium Venous Blood Potassium Urine Color Urine Clarity Urine pH Ur Specific [place] Urine Protein Urine Glucose (UA) Urine Ketones Urine Blood Urine Nitrate Urine Bilirubin Urine Urobilinogen Ur Leukocyte Esterase Urine RBC (Auto) Urine Microscopic WBC Urine Bacteria Laboratory Results - last 72 hr 11/24/17 11/24/17 11/24/17 13:00 13:00 13:00 WBC 10.7 RBC 2.82 L Hgb 8.7 L Hct 25.9 L MCV 92.0 MCH 30.9 MCHC 33.6 RDW 18.1 H Plt Count 193 MPV 7.8 Neut % (Auto) 82.9 H Lymph % (Auto) 11.5 L Sanders % (Auto) 5.2 Eos % (Auto) 0.2 Baso % (Auto) 0.2 Neut # 8.9 H Lymph # 1.2 Sanders # 0.6 Eos # 0.0 Baso # 0.0 PT 9.9 INR 0.9 APTT 28.2 pCO2 pO2 HCO3 ABG pH ABG Total CO2 ABG O2 Saturation ABG O2 Content ABG Base Excess ABG Hemoglobin ABG Carboxyhemoglobin POC ABG HHb (Measured) ABG Methemoglobin ABG O2 Capacity Roger Test ABG Potassium VBG pH VBG pCO2 VBG HCO3 VBG Total CO2 VBG O2 Sat (Calc) VBG Base Excess VBG Potassium A-a O2 Difference Hgb O2 Saturation Sodium 129 L Chloride 83 L Glucose Lactate Vent Mode FiO2 Tidal Volume Inspiratory BiPAP Expiratory BiPAP Crit Value Called To Crit Value Called By Crit Value Read Back Blood Gas Notified Time Potassium 4.7 Carbon Dioxide 40 H* Anion Gap 11 BUN 52 H Creatinine 1.1 Est GFR ( Amer) 57 Est GFR (Non-Af Amer) 47 POC Glucose (mg/dL) Random Glucose 106 H Calcium 9.4 Phosphorus 3.8 Magnesium 1.8 Total Bilirubin 0.5 AST 25 ALT 36 Alkaline Phosphatase 95 NT-Pro-B Natriuret Pep Total Protein 5.8 L Albumin 2.9 L Globulin 2.9 Albumin/Globulin Ratio 1.0 Arterial Blood Potassium Venous Blood Potassium Urine Color Urine Clarity Urine pH Ur Specific [place] Urine Protein Urine Glucose (UA) Urine Ketones Urine Blood Urine Nitrate Urine Bilirubin Urine Urobilinogen Ur Leukocyte Esterase Urine RBC (Auto) Urine Microscopic WBC Urine Bacteria 11/24/17 11/24/17 11/24/17 13:00 14:05 15:50 WBC RBC Hgb Hct MCV MCH MCHC RDW Plt Count MPV Neut % (Auto) Lymph % (Auto) Sanders % (Auto) Eos % (Auto) Baso % (Auto) Neut # Lymph # Sanders # Eos # Baso # PT INR APTT pCO2 50 H pO2 39 135 H HCO3 37.9 H ABG pH 7.53 H ABG Total CO2 43.3 H ABG O2 Saturation 99.5 H ABG O2 Content ABG Base Excess 16.6 H ABG Hemoglobin ABG Carboxyhemoglobin POC ABG HHb (Measured) ABG Methemoglobin ABG O2 Capacity Roger Test Yes ABG Potassium 4.4 VBG pH 7.18 L* VBG pCO2 99 H* VBG HCO3 27.8 VBG Total CO2 40.0 H VBG O2 Sat (Calc) 68.7 H VBG Base Excess 5.0 H VBG Potassium > 20.0 H* A-a O2 Difference 88.0 Hgb O2 Saturation Sodium 120.0 L* 129.0 L Chloride 87.0 L 91.0 L Glucose 104 92 Lactate 2.2 H 0.7 Vent Mode FiO2 21.0 40.0 Tidal Volume Inspiratory BiPAP Expiratory BiPAP Crit Value Called To Gracia bowden Crit Value Called By 23 Crit Value Read Back Y Blood Gas Notified Time 1310 Potassium Carbon Dioxide Anion Gap BUN Creatinine Est GFR ( Amer) Est GFR (Non-Af Amer) POC Glucose (mg/dL) Random Glucose Calcium Phosphorus Magnesium Total Bilirubin AST ALT Alkaline Phosphatase NT-Pro-B Natriuret Pep Total Protein Albumin Globulin Albumin/Globulin Ratio Arterial Blood Potassium 4.4 Venous Blood Potassium > 20.0 H* Urine Color Yellow Urine Clarity Cloudy Urine pH 7.0 Ur Specific [place] 1.010 Urine Protein Negative Urine Glucose (UA) Neg Urine Ketones Negative Urine Blood Negative Urine Nitrate Negative Urine Bilirubin Negative Urine Urobilinogen 0.2-1.0 Ur Leukocyte Esterase Large Urine RBC (Auto) 7 H Urine Microscopic WBC 122 H Urine Bacteria Mod H 11/24/17 11/24/17 11/25/17 15:50 21:45 04:41 WBC RBC Hgb Hct MCV MCH MCHC RDW Plt Count MPV Neut % (Auto) Lymph % (Auto) Sanders % (Auto) Eos % (Auto) Baso % (Auto) Neut # Lymph # Sanders # Eos # Baso # PT INR APTT pCO2 58 H pO2 173 H HCO3 33.4 H ABG pH 7.41 ABG Total CO2 38.6 H ABG O2 Saturation 100.6 H ABG O2 Content 11.4 L ABG Base Excess 10.8 H ABG Hemoglobin 8.0 L ABG Carboxyhemoglobin 1.9 H POC ABG HHb (Measured) -0.6 L ABG Methemoglobin 0.7 ABG O2 Capacity 11.3 L Roger Test Yes ABG Potassium VBG pH VBG pCO2 VBG HCO3 VBG Total CO2 VBG O2 Sat (Calc) VBG Base Excess VBG Potassium A-a O2 Difference 111.0 Hgb O2 Saturation 98.0 Sodium Chloride Glucose Lactate Vent Mode Bipap FiO2 50.0 Tidal Volume 12 Inspiratory BiPAP 10 Expiratory BiPAP 4 Crit Value Called To Crit Value Called By Crit Value Read Back Blood Gas Notified Time Potassium Carbon Dioxide Anion Gap BUN Creatinine Est GFR ( Amer) Est GFR (Non-Af Amer) POC Glucose (mg/dL) 93 Random Glucose Calcium Phosphorus Magnesium Total Bilirubin AST ALT Alkaline Phosphatase NT-Pro-B Natriuret Pep 148 Total Protein Albumin Globulin Albumin/Globulin Ratio Arterial Blood Potassium Venous Blood Potassium Urine Color Urine Clarity Urine pH Ur Specific [place] Urine Protein Urine Glucose (UA) Urine Ketones Urine Blood Urine Nitrate Urine Bilirubin Urine Urobilinogen Ur Leukocyte Esterase Urine RBC (Auto) Urine Microscopic WBC Urine Bacteria 11/25/17 11/25/17 11/25/17 05:27 10:20 10:20 WBC 8.6 RBC 2.51 L Hgb 7.7 L Hct 23.2 L MCV 92.2 MCH 30.8 MCHC 33.4 RDW 18.1 H Plt Count 159 MPV Neut % (Auto) Lymph % (Auto) Sanders % (Auto) Eos % (Auto) Baso % (Auto) Neut # Lymph # Sanders # Eos # Baso # PT INR APTT pCO2 pO2 HCO3 ABG pH ABG Total CO2 ABG O2 Saturation ABG O2 Content ABG Base Excess ABG Hemoglobin ABG Carboxyhemoglobin POC ABG HHb (Measured) ABG Methemoglobin ABG O2 Capacity Roger Test ABG Potassium VBG pH VBG pCO2 VBG HCO3 VBG Total CO2 VBG O2 Sat (Calc) VBG Base Excess VBG Potassium A-a O2 Difference Hgb O2 Saturation Sodium 135 Chloride 94 L Glucose Lactate Vent Mode FiO2 Tidal Volume Inspiratory BiPAP Expiratory BiPAP Crit Value Called To Crit Value Called By Crit Value Read Back Blood Gas Notified Time Potassium 4.5 Carbon Dioxide 36 H Anion Gap 10 BUN 36 H Creatinine 0.8 Est GFR ( Amer) > 60 Est GFR (Non-Af Amer) > 60 POC Glucose (mg/dL) 115 H Random Glucose 100 Calcium 9.4 Phosphorus Magnesium Total Bilirubin AST ALT Alkaline Phosphatase NT-Pro-B Natriuret Pep Total Protein Albumin Globulin Albumin/Globulin Ratio Arterial Blood Potassium Venous Blood Potassium Urine Color Urine Clarity Urine pH Ur Specific [place] Urine Protein Urine Glucose (UA) Urine Ketones Urine Blood Urine Nitrate Urine Bilirubin Urine Urobilinogen Ur Leukocyte Esterase Urine RBC (Auto) Urine Microscopic WBC Urine Bacteria 11/25/17 10:55 WBC RBC Hgb Hct MCV MCH MCHC RDW Plt Count MPV Neut % (Auto) Lymph % (Auto) Sanders % (Auto) Eos % (Auto) Baso % (Auto) Neut # Lymph # Sanders # Eos # Baso # PT INR APTT pCO2 pO2 HCO3 ABG pH ABG Total CO2 ABG O2 Saturation ABG O2 Content ABG Base Excess ABG Hemoglobin ABG Carboxyhemoglobin POC ABG HHb (Measured) ABG Methemoglobin ABG O2 Capacity Roger Test ABG Potassium VBG pH VBG pCO2 VBG HCO3 VBG Total CO2 VBG O2 Sat (Calc) VBG Base Excess VBG Potassium A-a O2 Difference Hgb O2 Saturation Sodium Chloride Glucose Lactate Vent Mode FiO2 Tidal Volume Inspiratory BiPAP Expiratory BiPAP Crit Value Called To Crit Value Called By Crit Value Read Back Blood Gas Notified Time Potassium Carbon Dioxide Anion Gap BUN Creatinine Est GFR ( Amer) Est GFR (Non-Af Amer) POC Glucose (mg/dL) 93 Random Glucose Calcium Phosphorus Magnesium Total Bilirubin AST ALT Alkaline Phosphatase NT-Pro-B Natriuret Pep Total Protein Albumin Globulin Albumin/Globulin Ratio Arterial Blood Potassium Venous Blood Potassium Urine Color Urine Clarity Urine pH Ur Specific [place] Urine Protein Urine Glucose (UA) Urine Ketones Urine Blood Urine Nitrate Urine Bilirubin Urine Urobilinogen Ur Leukocyte Esterase Urine RBC (Auto) Urine Microscopic WBC Urine Bacteria Microbiology 11/24/17 13:48 Blood Blood Culture - Preliminary NO GROWTH AFTER 24 HOURS 11/24/17 13:48 Blood Blood Culture - Preliminary NO GROWTH AFTER 24 HOURS Microbiology 11/06/17 19:49 Urine,[place] Urine Culture - Final Escherichia Coli 11/06/17 18:53 Blood Blood Culture - Final 11/06/17 18:53 Blood Gram Stain - Final NO GROWTH AFTER 5 DAYS TEST NOT PERFORMED 10/12/17 16:15 Blood Blood Culture - Final 10/12/17 16:15 Blood Gram Stain - Final Corynebacterium Species Accession No. : [id number] Patient Name / ID : JAZMYNE ELKINS / [id number] Exam Date : 11/24/2017 12:44:11 ( Approved ) Study Comment : Sex / Age : F / [id number] Creator : Jorden Cole MD Dictator : Jorden Cole MD Investigator Utility Bill Complaints : Children'S Minister : Jorden Cole MD Approver2 : Report Date : 11/24/2017 12:54:28 My Comment : HISTORY: Sepsis Patient COMPARISON: Chest radiograph dated 11/09/2017. FINDINGS: LUNGS: Stable chronic prominence of the bilateral interstitial markings. Left basilar atelectasis. PLEURA: Probable small left pleural effusion. No pneumothorax apparent. CARDIOVASCULAR: Atherosclerotic aortic calcifications. Cardiomediastinal silhouette stably enlarged. OSSEOUS STRUCTURES: Unchanged. VISUALIZED UPPER ABDOMEN: Normal. OTHER FINDINGS: None. IMPRESSION: Left basilar atelectasis and probable small left pleural effusion. Assessment & Plan (1) Infection due to ESBL-producing Escherichia coli Status: Acute (2) UTI (urinary tract infection) Status: Acute (3) Diabetes Status: Acute (4) COPD (chronic obstructive pulmonary disease) Status: Chronic Priority: High - Assessment and Plan (Free Text) Assessment: A/P- 82 year old female with multiple medical conditions admitted with hypotention. last admission urine cx- ESBL e.coli has been maintained on meropenem in [facility]. afebrile here normal wbc count + UA. plan- advise to continue with the meropenem that patient was already initiated on since last admission. await repeat urine cx result. would advise total of 7-10 days of IV abx for the ESBL UTI. all above d/w patient and her who is at her bedside. case also d/w the hospitalist taking care of the patient today. Thank you for allowing me to take part in the care of this patient.
--- NOTE | 2017-11-25 12:13 | CON ---
DATE: HISTORY OF PRESENT ILLNESS: Mrs. Reevse is an 82-year-old female who is well known to me from prior admissions. She was referred for pulmonary evaluation because of shortness of breath, exercise intolerance, and respiratory failure. She was admitted from the custodial after she was sent in because of low blood pressure and urinary tract infection. She was recently discharged from [facility] after therapy for [id number] elevation myocardial infarction, congestive heart failure, and acute respiratory failure with ESBL in urine. She presently is somewhat confused but awake and alert. She is on oxygen 3 liters/minute via nasal cannula. She denies chest pains or shortness of breath. PHYSICAL EXAMINATION: VITAL SIGNS: Remarkable for blood pressure of 152/72 with a pulse of 71, respiratory rate 18 per minute, she is afebrile, O2 saturation is 98% on nasal cannula oxygen. SKIN: Shows fair turgor with abrasions of lower extremities. HEENT: Mouth shows fair hygiene. NECK: JVP flat. LUNGS: Poor aeration at the bases with scattered bilateral rales. HEART: S1 and S2. ABDOMEN: Soft, nontender. No organomegaly. EXTREMITIES: No edema or cyanosis appreciated. CENTRAL NERVOUS SYSTEM: The patient is awake and alert but somewhat disoriented. LABORATORY DATA: WBC 10.7, hemoglobin 8.7, platelet count 193,000. Sodium 129, potassium 4.7, BUN 52, creatinine 1.1, carbon dioxide content 40; pro-BNP 148. Arterial blood gas on BiPAP with FiO2 of 50% shows a pH of 7.41, pCO2 of 58, pO2 of 173, O2 sat 100%. Chest x-ray is remarkable for left basal atelectasis, probable small left pleural effusion. IMPRESSION: Hypotension, probably secondary to urinary tract infection, one has to rule out sepsis. Acute exacerbation of chronic obstructive pulmonary disease with respiratory failure. PLAN: Continue IV antibiotics, aerosolized bronchodilators. Continue BiPAP especially at bedtime. Obtain sputum for Gram stain and cultures. We will continue to follow with you. Barron Greene MD
[2017-11-25] MEDS: Sodium Chloride 0.9% 250 ML IV SCH ×2 (16:00→18:45)
[2017-11-25] MEDS: Albuterol-Ipratrop 3 mg / 0.5 (3 ml) UD IH SCH ×2 (16:00→19:56)
[2017-11-25] MEDS: Acetaminophen-Codeine 300/30 mg Tab PO PRN (17:18)
[2017-11-26] MEDS: Albuterol-Ipratrop 3 mg / 0.5 (3 ml) UD IH SCH ×6 (00:33→19:48)
[2017-11-26] MEDS: Meropenem 1 GM in Sodium Chloride 0.9% 100 ML IVPB SCH ×3 (01:55→16:57)
[2017-11-26 06:29] LABS: ALBUMIN 2.9 g/dL (3.5-5.0); ALT/SGPT 36 U/L (9-52); AST/SGOT 38 U/L (14-36); BLOOD UREA NITROGEN 34 mg/dl (7-17); CALCIUM 8.8 mg/dL (8.4-10.2); GFR AFRICAN-AMERICAN > 60; GFR NON-AFRICAN AMERICAN > 60
[2017-11-26] MEDS: Insulin Lispro (humaLOG) 100 Units/ml Inj SC SCH ×4 (06:50→22:54)
[2017-11-26 06:51] LABS: MEAN CELL VOLUME 93.9 fl (81.0-99.0); MEAN CORPUSCULAR HEMOGLOBIN 30.2 pg (27.0-31.0); MEAN CORPUSCULAR HGB CONC 32.1 g/dL (33.0-37.0); RBC 2.97 Mil/uL (3.80-5.20); WHITE BLOOD COUNT 6.4 K/uL (4.8-10.8)
[2017-11-26] MEDS: Pantoprazole 40 mg EC Tab PO SCH (08:51)
[2017-11-26] MEDS: Enoxaparin 40 mg Syringe SC SCH (08:51)
[2017-11-26] MEDS ORDERED: Insulin Detemir 100 Units/ml Inj SC SCH (09:06)
--- NOTE | 2017-11-26 09:18 | CP.PCM.PN ---
Subjective - Date & Time of Evaluation Date of Evaluation: 11/26/17 Time of Evaluation: 09:18 - Subjective Subjective: AWAKE ALERT AND ORIENTED NO SOB REFUSING BIPAP Objective - Vital Signs/Intake and Output Vital Signs (last 24 hours): Temp Pulse Resp BP Pulse Ox 97.9 F 87 18 125/66 99 11/26/17 07:55 11/26/17 07:55 11/26/17 07:55 11/26/17 07:55 11/26/17 07:55 Intake and Output: 11/26/17 11/26/17 06:59 18:59 Intake Total 925 Balance 925 - Medications Medications: Current Medications Acetaminophen/Codeine Phosphate (Tylenol/Codeine 300 Mg/30 Mg) 1 tab PO Q8 PRN PRN Reason: Pain, moderate (4-7) Last Admin: 11/25/17 17:18 Dose: 1 tab Albuterol/Ipratropium (Duoneb 3 Mg/0.5 Mg (3 Ml) Ud) 3 ml IH RQ4 [facility] Last Admin: 11/26/17 05:12 Dose: 3 ml Aspirin (Ecotrin) 81 mg PO DAILY [facility] Last Admin: 11/26/17 08:53 Dose: 81 mg Enoxaparin Sodium (Lovenox) 40 mg SC DAILY [facility] PRN Reason: Protocol Last Admin: 11/26/17 08:51 Dose: 40 mg Furosemide (Lasix) 40 mg PO DAILY [facility] Last Admin: 11/25/17 09:12 Dose: 40 mg Meropenem 1 gm/ Sodium (Chloride) 100 mls @ 100 mls/hr IVPB Q8 [facility] PRN Reason: Protocol Last Admin: 11/26/17 01:55 Dose: 100 mls/hr Vancomycin HCl 1 gm/ Sodium (Chloride) 250 mls @ 166.667 mls/hr IVPB Q12 [facility] PRN Reason: Protocol Last Admin: 11/26/17 08:50 Dose: 166.667 mls/hr Sodium Chloride (Sodium Chloride 0.9%) 250 mls @ 250 mls/hr IV .Q1H [facility] Stop: 11/26/17 15:49 Last Admin: 11/25/17 18:45 Dose: Not Given Insulin Detemir (Levemir) 18 units SC HS [facility] Insulin Human Lispro (Humalog) 0 units SC ACHS [facility] PRN Reason: Protocol Last Admin: 11/26/17 06:50 Dose: 4 u Losartan Potassium (Cozaar) 50 mg PO DAILY [facility] Last Admin: 11/25/17 09:09 Dose: 50 mg Magnesium Hydroxide (Milk Of Magnesia) 30 ml PO DAILY [facility] PRN Reason: Constipation Montelukast Sodium (Singulair) 10 mg PO HS [facility] Last Admin: 11/25/17 21:52 Dose: 10 mg Pantoprazole Sodium (Protonix Ec Tab) 40 mg PO DAILY [facility] Last Admin: 11/26/17 08:51 Dose: 40 mg Prednisone (Prednisone Tab) 30 mg PO BID [facility] Last Admin: 11/26/17 08:52 Dose: 30 mg Temazepam (Restoril) 30 mg PO HS [facility] Last Admin: 11/25/17 22:07 Dose: 30 mg Trazodone HCl (Desyrel) 150 mg PO HS [facility] Last Admin: 11/25/17 21:52 Dose: 150 mg Verapamil HCl (Calan Sr Tab) 240 mg PO DAILY [facility] Last Admin: 11/25/17 09:08 Dose: 240 mg - Labs Labs: 11/26/17 05:45 11/26/17 05:45 PT 9.9 Seconds (9.8-13.1) 11/24/17 13:00 INR 0.9 (0.9-1.2) 11/24/17 13:00 APTT 28.2 Seconds (25.6-37.1) 11/24/17 13:00 - Constitutional Appears: No Acute Distress - Head Exam Head Exam: ATRAUMATIC, NORMAL INSPECTION, NORMOCEPHALIC - Eye Exam Eye Exam: EOMI, Normal appearance, PERRL Pupil Exam: NORMAL ACCOMODATION, PERRL - ENT Exam ENT Exam: Mucous Membranes Moist, Normal Exam - Neck Exam Neck Exam: Full ROM, Normal Inspection. absent: Lymphadenopathy - Respiratory Exam Respiratory Exam: Decreased Breath Sounds, Prolonged Expiratory Phase, Rales, NORMAL BREATHING PATTERN - Cardiovascular Exam Cardiovascular Exam: REGULAR RHYTHM, +S1, +S2. absent: Murmur - GI/Abdominal Exam GI & Abdominal Exam: Soft, Normal Bowel Sounds. absent: Tenderness - Rectal Exam Rectal Exam: NORMAL INSPECTION - Extremities Exam Extremities Exam: Full ROM, Normal Capillary Refill, Normal Inspection. absent : Joint Swelling, Pedal Edema - Back Exam Back Exam: NORMAL INSPECTION - Neurological Exam Neurological Exam: Alert, Awake, CN II-XII Intact, Normal Gait, Oriented x3 - Psychiatric Exam Psychiatric exam: Normal Affect, Normal Mood - Skin Skin Exam: Dry, Intact, Normal Color, Warm Assessment and Plan - Assessment and Plan (Free Text) Assessment: COPD EXAC RESPIRATORY FAILURE--IMPROVED Plan: CONTINUE CURRENT RX D/C BIPAP
--- NOTE | 2017-11-26 13:58 | CP.PCM.PN ---
Subjective - Date & Time of Evaluation Date of Evaluation: 11/26/17 Time of Evaluation: 11:30 - Subjective Subjective: feels better today SOB better PO intake better no CP no abd pain denies hip pain BP better today no fever at bedside who is the surrogate decision maker - pt is DNI/DNR Objective - Vital Signs/Intake and Output Vital Signs (last 24 hours): Temp Pulse Resp BP Pulse Ox 97.7 F 87 18 130/76 96 11/26/17 12:23 11/26/17 12:23 11/26/17 12:23 11/26/17 12:23 11/26/17 12:23 Intake and Output: 11/26/17 11/26/17 06:59 18:59 Intake Total 925 Balance 925 - Medications Medications: Current Medications Acetaminophen/Codeine Phosphate (Tylenol/Codeine 300 Mg/30 Mg) 1 tab PO Q8 PRN PRN Reason: Pain, moderate (4-7) Last Admin: 11/25/17 17:18 Dose: 1 tab Albuterol/Ipratropium (Duoneb 3 Mg/0.5 Mg (3 Ml) Ud) 3 ml IH RQ4 [facility] Last Admin: 11/26/17 12:05 Dose: 3 ml Aspirin (Ecotrin) 81 mg PO DAILY [facility] Last Admin: 11/26/17 08:53 Dose: 81 mg Enoxaparin Sodium (Lovenox) 40 mg SC DAILY [facility] PRN Reason: Protocol Last Admin: 11/26/17 08:51 Dose: 40 mg Furosemide (Lasix) 40 mg PO DAILY [facility] Last Admin: 11/25/17 09:12 Dose: 40 mg Meropenem 1 gm/ Sodium (Chloride) 100 mls @ 100 mls/hr IVPB Q8 [facility] PRN Reason: Protocol Last Admin: 11/26/17 09:54 Dose: 100 mls/hr Vancomycin HCl 1 gm/ Sodium (Chloride) 250 mls @ 166.667 mls/hr IVPB Q12 [facility] PRN Reason: Protocol Last Admin: 11/26/17 08:50 Dose: 166.667 mls/hr Sodium Chloride (Sodium Chloride 0.9%) 250 mls @ 250 mls/hr IV .Q1H [facility] Stop: 11/26/17 15:49 Last Admin: 11/25/17 18:45 Dose: Not Given Insulin Detemir (Levemir) 18 units SC [facility] Insulin Human Lispro (Humalog) 0 units SC [facility] PRN Reason: Protocol Last Admin: 11/26/17 13:18 Dose: 3 u Losartan Potassium (Cozaar) 50 mg PO DAILY [facility] Last Admin: 11/25/17 09:09 Dose: 50 mg Magnesium Hydroxide (Milk Of Magnesia) 30 ml PO DAILY [facility] PRN Reason: Constipation Montelukast Sodium (Singulair) 10 mg PO [facility] Last Admin: 11/25/17 21:52 Dose: 10 mg Pantoprazole Sodium (Protonix Ec Tab) 40 mg PO DAILY [facility] Last Admin: 11/26/17 08:51 Dose: 40 mg Prednisone (Prednisone Tab) 30 mg PO BID [facility] Last Admin: 11/26/17 08:52 Dose: 30 mg Temazepam (Restoril) 30 mg PO [facility] Last Admin: 11/25/17 22:07 Dose: 30 mg Trazodone HCl (Desyrel) 150 mg PO [facility] Last Admin: 11/25/17 21:52 Dose: 150 mg Verapamil HCl (Calan Sr Tab) 240 mg PO DAILY [facility] Last Admin: 11/25/17 09:08 Dose: 240 mg - Labs Labs: 11/26/17 05:45 11/26/17 05:45 PT 9.9 Seconds (9.8-13.1) 11/24/17 13:00 INR 0.9 (0.9-1.2) 11/24/17 13:00 APTT 28.2 Seconds (25.6-37.1) 11/24/17 13:00 - Constitutional Appears: Non-toxic, No Acute Distress, Chronically Ill - Head Exam Head Exam: NORMAL INSPECTION, NORMOCEPHALIC - Eye Exam Eye Exam: EOMI, Normal appearance Pupil Exam: NORMAL ACCOMODATION - ENT Exam ENT Exam: Mucous Membranes Dry, Normal External Ear Exam - Neck Exam Neck Exam: Full ROM. absent: Meningismus - Respiratory Exam Respiratory Exam: + Rales, Rhonchi, mild wheeze - Cardiovascular Exam Cardiovascular Exam: REGULAR RHYTHM, +S1, +S2 - GI/Abdominal Exam GI & Abdominal Exam: Soft, Normal Bowel Sounds. absent: Tenderness - Extremities Exam Extremities Exam: Normal Capillary Refill. absent: Calf Tenderness, Pedal Edema - Back Exam Back Exam: absent: CVA tenderness (L), CVA tenderness (R) pressure ulcers buttocks does not look infected - Neurological Exam Neurological Exam: Alert, Awake Additional comments: oriented to person and place - Psychiatric Exam Psychiatric exam: Normal Affect, Normal Mood - Skin Skin Exam: Dry, Pallor, Warm Assessment and Plan - Assessment and Plan (Free Text) Assessment: 82 year old female with a past medical history significant for COPD on home oxygen, essential hypertension, Type 2 diabetes mellitus controlled with insulin , history of CHF, anxiety, depression, recently discharged 2 weeks ago for NSTEMI, CHF, acute on chronic respiratory failure, +ESBL UTI presents to the ER , after being sent from [facility] for low blood pressure. On arrival, patient BP was in the 80s systolic and responded to fluids. Found to have ? UTI. Lactic acid elevated. She had been on Merrem at [facility] ( discharged on 11/11/17) 1. Sepsis sec to UTI ESBL E Coli ( POA) Pt was hypotensive on admission, with elevated Lactic acid no fever, no leukocytosis Urinalysis shows large leuko, UTH=[id number] Urine ESBL E coli ID consulted- DR Beauchamp cont IV Meropenem Blood c/s : GRam + cocci in cluster 1 out of 2 bottles Discussed with ID - rec to IV vanco though prob contaminant rpt Blood c/s ECHO to r/o vegetation 2. Acute on Chronic CHF, systolic and diastolic dysfunction ECHO done last year showed EF 35% restart Lasix no BB due to COPD rpt ECHO restart Verapamil and ARB once BP better 3. Acute on Chronic Respiratory Failure with Hypoxia and Hypercapnea sec to COPD exacerbation and CHF Pt started on Bipap now feels better and refused to keep Bipap - placed on NC 4 L Pulm consulted cont Duonebs cont PRednisone 30 mg bid 4. 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 DM type II Accucheck with coverage pt's glucose low bec of poor PO intake initially but now with hyperglycemia Increase Levemir dose 6. Anemia of chronic disease worsened chronic anemia now hgb 7.9 transfused 1 unit PRBC 7. Anxiety/ depression on trazodone and temazepam at home DVT prophylaxis Lovenox
--- NOTE | 2017-11-26 14:51 | CP.PCM.PN ---
Subjective - Date & Time of Evaluation Date of Evaluation: 11/26/17 Time of Evaluation: 14:51 - Subjective Subjective: ID Note- Patient seen and examined today. Pt. sitting up in bed in good spirits and smiling. states she feels better and denies any pain. her is at her bedside as well. Objective - Vital Signs/Intake and Output Vital Signs (last 24 hours): Temp Pulse Resp BP Pulse Ox 97.7 F 87 18 130/76 96 11/26/17 12:23 11/26/17 12:23 11/26/17 12:23 11/26/17 12:23 11/26/17 12:23 Intake and Output: 11/26/17 11/26/17 06:59 18:59 Intake Total 925 Balance 925 - Medications Medications: Current Medications Acetaminophen/Codeine Phosphate (Tylenol/Codeine 300 Mg/30 Mg) 1 tab PO Q8 PRN PRN Reason: Pain, moderate (4-7) Last Admin: 11/25/17 17:18 Dose: 1 tab Albuterol/Ipratropium (Duoneb 3 Mg/0.5 Mg (3 Ml) Ud) 3 ml IH RQ4 ZIA Last Admin: 11/26/17 12:05 Dose: 3 ml Aspirin (Ecotrin) 81 mg PO DAILY ZIA Last Admin: 11/26/17 08:53 Dose: 81 mg Enoxaparin Sodium (Lovenox) 40 mg SC DAILY ZIA PRN Reason: Protocol Last Admin: 11/26/17 08:51 Dose: 40 mg Furosemide (Lasix) 40 mg PO DAILY ZIA Last Admin: 11/25/17 09:12 Dose: 40 mg Furosemide (Lasix) 20 mg PO ONCE ONE Stop: 11/27/17 14:08 Meropenem 1 gm/ Sodium (Chloride) 100 mls @ 100 mls/hr IVPB Q8 ZIA PRN Reason: Protocol Last Admin: 11/26/17 09:54 Dose: 100 mls/hr Vancomycin HCl 1 gm/ Sodium (Chloride) 250 mls @ 166.667 mls/hr IVPB Q12 ZIA PRN Reason: Protocol Last Admin: 11/26/17 08:50 Dose: 166.667 mls/hr Sodium Chloride (Sodium Chloride 0.9%) 250 mls @ 250 mls/hr IV .Q1H ZIA Stop: 11/26/17 15:49 Last Admin: 11/25/17 18:45 Dose: Not Given Insulin Detemir (Levemir) 18 units SC [facility] Insulin Human Lispro (Humalog) 0 units SC [facility] PRN Reason: Protocol Last Admin: 11/26/17 13:18 Dose: 3 u Losartan Potassium (Cozaar) 50 mg PO DAILY [facility] Last Admin: 11/25/17 09:09 Dose: 50 mg Magnesium Hydroxide (Milk Of Magnesia) 30 ml PO DAILY PRN PRN Reason: Constipation Montelukast Sodium (Singulair) 10 mg PO [facility] Last Admin: 11/25/17 21:52 Dose: 10 mg Pantoprazole Sodium (Protonix Ec Tab) 40 mg PO DAILY [facility] Last Admin: 11/26/17 08:51 Dose: 40 mg Prednisone (Prednisone Tab) 30 mg PO BID [facility] Last Admin: 11/26/17 08:52 Dose: 30 mg Temazepam (Restoril) 30 mg PO [facility] Last Admin: 11/25/17 22:07 Dose: 30 mg Trazodone HCl (Desyrel) 150 mg PO [facility] Last Admin: 11/25/17 21:52 Dose: 150 mg Verapamil HCl (Calan Sr Tab) 240 mg PO DAILY [facility] Last Admin: 11/25/17 09:08 Dose: 240 mg - Labs Labs: - Additional Findings Additional findings: - Constitutional Appears: No Acute Distress - Head Exam Head Exam: ATRAUMATIC - Eye Exam Eye Exam: EOMI, PERRL - ENT Exam ENT Exam: Normal Oropharynx - Neck Exam Neck exam: Positive for: Full Rom - Respiratory Exam Respiratory Exam: Clear to Auscultation Bilateral, NORMAL BREATHING PATTERN - Cardiovascular Exam Cardiovascular Exam: RRR, +S1, +S2 - GI/Abdominal Exam GI & Abdominal Exam: Normal Bowel Sounds, Soft Additional comments: NT, ND No CVA tenderness - Extremities Exam Additional comments: no edema b/l LE - Neurological Exam Neurological exam: Alert and oriented Laboratory Results - last 72 hr 11/24/17 11/24/17 11/24/17 13:00 13:00 13:00 WBC 10.7 RBC 2.82 L Hgb 8.7 L Hct 25.9 L MCV 92.0 MCH 30.9 MCHC 33.6 RDW 18.1 H Plt Count 193 MPV 7.8 Neut % (Auto) 82.9 H Lymph % (Auto) 11.5 L Logan % (Auto) 5.2 Eos % (Auto) 0.2 Baso % (Auto) 0.2 Neut # 8.9 H Lymph # 1.2 Logan # 0.6 Eos # 0.0 Baso # 0.0 PT 9.9 INR 0.9 APTT 28.2 pCO2 pO2 HCO3 ABG pH ABG Total CO2 ABG O2 Saturation ABG O2 Content ABG Base Excess ABG Hemoglobin ABG Carboxyhemoglobin POC ABG HHb (Measured) ABG Methemoglobin ABG O2 Capacity Roger Test ABG Potassium VBG pH VBG pCO2 VBG HCO3 VBG Total CO2 VBG O2 Sat (Calc) VBG Base Excess VBG Potassium A-a O2 Difference Hgb O2 Saturation Sodium 129 L Chloride 83 L Glucose Lactate Vent Mode FiO2 Tidal Volume Inspiratory BiPAP Expiratory BiPAP Crit Value Called To Crit Value Called By Crit Value Read Back Blood Gas Notified Time Potassium 4.7 Carbon Dioxide 40 H* Anion Gap 11 BUN 52 H Creatinine 1.1 Est GFR ( Amer) 57 Est GFR (Non-Af Amer) 47 POC Glucose (mg/dL) Random Glucose 106 H Calcium 9.4 Phosphorus 3.8 Magnesium 1.8 Total Bilirubin 0.5 AST 25 ALT 36 Alkaline Phosphatase 95 NT-Pro-B Natriuret Pep Total Protein 5.8 L Albumin 2.9 L Globulin 2.9 Albumin/Globulin Ratio 1.0 Arterial Blood Potassium Venous Blood Potassium Urine Color Urine Clarity Urine pH Ur Specific [place] Urine Protein Urine Glucose (UA) Urine Ketones Urine Blood Urine Nitrate Urine Bilirubin Urine Urobilinogen Ur Leukocyte Esterase Urine RBC (Auto) Urine Microscopic WBC Urine Bacteria Blood Type Antibody Screen Crossmatch BBK History Checked 11/24/17 11/24/17 11/24/17 13:00 14:05 15:50 WBC RBC Hgb Hct MCV MCH MCHC RDW Plt Count MPV Neut % (Auto) Lymph % (Auto) Logan % (Auto) Eos % (Auto) Baso % (Auto) Neut # Lymph # Logan # Eos # Baso # PT INR APTT pCO2 50 H pO2 39 135 H HCO3 37.9 H ABG pH 7.53 H ABG Total CO2 43.3 H ABG O2 Saturation 99.5 H ABG O2 Content ABG Base Excess 16.6 H ABG Hemoglobin ABG Carboxyhemoglobin POC ABG HHb (Measured) ABG Methemoglobin ABG O2 Capacity Roger Test Yes ABG Potassium 4.4 VBG pH 7.18 L* VBG pCO2 99 H* VBG HCO3 27.8 VBG Total CO2 40.0 H VBG O2 Sat (Calc) 68.7 H VBG Base Excess 5.0 H VBG Potassium > 20.0 H* A-a O2 Difference 88.0 Hgb O2 Saturation Sodium 120.0 L* 129.0 L Chloride 87.0 L 91.0 L Glucose 104 92 Lactate 2.2 H 0.7 Vent Mode FiO2 21.0 40.0 Tidal Volume Inspiratory BiPAP Expiratory BiPAP Crit Value Called To Gracia bowden Crit Value Called By Chey Crit Value Read Back Y Blood Gas Notified Time 1310 Potassium Carbon Dioxide Anion Gap BUN Creatinine Est GFR ( Amer) Est GFR (Non-Af Amer) POC Glucose (mg/dL) Random Glucose Calcium Phosphorus Magnesium Total Bilirubin AST ALT Alkaline Phosphatase NT-Pro-B Natriuret Pep Total Protein Albumin Globulin Albumin/Globulin Ratio Arterial Blood Potassium 4.4 Venous Blood Potassium > 20.0 H* Urine Color Yellow Urine Clarity Cloudy Urine pH 7.0 Ur Specific [place] 1.010 Urine Protein Negative Urine Glucose (UA) Neg Urine Ketones Negative Urine Blood Negative Urine Nitrate Negative Urine Bilirubin Negative Urine Urobilinogen 0.2-1.0 Ur Leukocyte Esterase Large Urine RBC (Auto) 7 H Urine Microscopic WBC 122 H Urine Bacteria Mod H Blood Type Antibody Screen Crossmatch BBK History Checked 11/24/17 11/24/17 11/25/17 15:50 21:45 04:41 WBC RBC Hgb Hct MCV MCH MCHC RDW Plt Count MPV Neut % (Auto) Lymph % (Auto) Logan % (Auto) Eos % (Auto) Baso % (Auto) Neut # Lymph # Logan # Eos # Baso # PT INR APTT pCO2 58 H pO2 173 H HCO3 33.4 H ABG pH 7.41 ABG Total CO2 38.6 H ABG O2 Saturation 100.6 H ABG O2 Content 11.4 L ABG Base Excess 10.8 H ABG Hemoglobin 8.0 L ABG Carboxyhemoglobin 1.9 H POC ABG HHb (Measured) -0.6 L ABG Methemoglobin 0.7 ABG O2 Capacity 11.3 L Roger Test Yes ABG Potassium VBG pH VBG pCO2 VBG HCO3 VBG Total CO2 VBG O2 Sat (Calc) VBG Base Excess VBG Potassium A-a O2 Difference 111.0 Hgb O2 Saturation 98.0 Sodium Chloride Glucose Lactate Vent Mode Bipap FiO2 50.0 Tidal Volume 12 Inspiratory BiPAP 10 Expiratory BiPAP 4 Crit Value Called To Crit Value Called By Crit Value Read Back Blood Gas Notified Time Potassium Carbon Dioxide Anion Gap BUN Creatinine Est GFR ( Amer) Est GFR (Non-Af Amer) POC Glucose (mg/dL) 93 Random Glucose Calcium Phosphorus Magnesium Total Bilirubin AST ALT Alkaline Phosphatase NT-Pro-B Natriuret Pep 148 Total Protein Albumin Globulin Albumin/Globulin Ratio Arterial Blood Potassium Venous Blood Potassium Urine Color Urine Clarity Urine pH Ur Specific [place] Urine Protein Urine Glucose (UA) Urine Ketones Urine Blood Urine Nitrate Urine Bilirubin Urine Urobilinogen Ur Leukocyte Esterase Urine RBC (Auto) Urine Microscopic WBC Urine Bacteria Blood Type Antibody Screen Crossmatch BBK History Checked 11/25/17 11/25/17 11/25/17 05:27 10:20 10:20 WBC 8.6 RBC 2.51 L Hgb 7.7 L Hct 23.2 L MCV 92.2 MCH 30.8 MCHC 33.4 RDW 18.1 H Plt Count 159 MPV Neut % (Auto) Lymph % (Auto) Logan % (Auto) Eos % (Auto) Baso % (Auto) Neut # Lymph # Logan # Eos # Baso # PT INR APTT pCO2 pO2 HCO3 ABG pH ABG Total CO2 ABG O2 Saturation ABG O2 Content ABG Base Excess ABG Hemoglobin ABG Carboxyhemoglobin POC ABG HHb (Measured) ABG Methemoglobin ABG O2 Capacity Roger Test ABG Potassium VBG pH VBG pCO2 VBG HCO3 VBG Total CO2 VBG O2 Sat (Calc) VBG Base Excess VBG Potassium A-a O2 Difference Hgb O2 Saturation Sodium 135 Chloride 94 L Glucose Lactate Vent Mode FiO2 Tidal Volume Inspiratory BiPAP Expiratory BiPAP Crit Value Called To Crit Value Called By Crit Value Read Back Blood Gas Notified Time Potassium 4.5 Carbon Dioxide 36 H Anion Gap 10 BUN 36 H Creatinine 0.8 Est GFR ( Amer) > 60 Est GFR (Non-Af Amer) > 60 POC Glucose (mg/dL) 115 H Random Glucose 100 Calcium 9.4 Phosphorus Magnesium Total Bilirubin AST ALT Alkaline Phosphatase NT-Pro-B Natriuret Pep Total Protein Albumin Globulin Albumin/Globulin Ratio Arterial Blood Potassium Venous Blood Potassium Urine Color Urine Clarity Urine pH Ur Specific [place] Urine Protein Urine Glucose (UA) Urine Ketones Urine Blood Urine Nitrate Urine Bilirubin Urine Urobilinogen Ur Leukocyte Esterase Urine RBC (Auto) Urine Microscopic WBC Urine Bacteria Blood Type Antibody Screen Crossmatch BBK History Checked 11/25/17 11/25/17 11/25/17 10:55 15:54 16:00 WBC RBC Hgb Hct MCV MCH MCHC RDW Plt Count MPV Neut % (Auto) Lymph % (Auto) [place] % (Auto) Eos % (Auto) Baso % (Auto) Neut # Lymph # [place] # Eos # Baso # PT INR APTT pCO2 pO2 HCO3 ABG pH ABG Total CO2 ABG O2 Saturation ABG O2 Content ABG Base Excess ABG Hemoglobin ABG Carboxyhemoglobin POC ABG HHb (Measured) ABG Methemoglobin ABG O2 Capacity Roger Test ABG Potassium VBG pH VBG pCO2 VBG HCO3 VBG Total CO2 VBG O2 Sat (Calc) VBG Base Excess VBG Potassium A-a O2 Difference Hgb O2 Saturation Sodium Chloride Glucose Lactate Vent Mode FiO2 Tidal Volume Inspiratory BiPAP Expiratory BiPAP Crit Value Called To Crit Value Called By Crit Value Read Back Blood Gas Notified Time Potassium Carbon Dioxide Anion Gap BUN Creatinine Est GFR ( Amer) Est GFR (Non-Af Amer) POC Glucose (mg/dL) 93 230 H Random Glucose Calcium Phosphorus Magnesium Total Bilirubin AST ALT Alkaline Phosphatase NT-Pro-B Natriuret Pep Total Protein Albumin Globulin Albumin/Globulin Ratio Arterial Blood Potassium Venous Blood Potassium Urine Color Urine Clarity Urine pH Ur Specific [place] Urine Protein Urine Glucose (UA) Urine Ketones Urine Blood Urine Nitrate Urine Bilirubin Urine Urobilinogen Ur Leukocyte Esterase Urine RBC (Auto) Urine Microscopic WBC Urine Bacteria Blood Type O POSITIVE Antibody Screen Negative Crossmatch See Detail BBK History Checked Patient has bt 11/25/17 11/26/17 11/26/17 21:15 05:45 05:45 WBC 6.4 RBC 2.97 L Hgb 9.0 L Hct 27.9 L MCV 93.9 MCH 30.2 MCHC 32.1 L RDW 17.0 H Plt Count 149 MPV Neut % (Auto) Lymph % (Auto) Logan % (Auto) Eos % (Auto) Baso % (Auto) Neut # Lymph # Logan # Eos # Baso # PT INR APTT pCO2 pO2 HCO3 ABG pH ABG Total CO2 ABG O2 Saturation ABG O2 Content ABG Base Excess ABG Hemoglobin ABG Carboxyhemoglobin POC ABG HHb (Measured) ABG Methemoglobin ABG O2 Capacity Roger Test ABG Potassium VBG pH VBG pCO2 VBG HCO3 VBG Total CO2 VBG O2 Sat (Calc) VBG Base Excess VBG Potassium A-a O2 Difference Hgb O2 Saturation Sodium 133 Chloride 97 L Glucose Lactate Vent Mode FiO2 Tidal Volume Inspiratory BiPAP Expiratory BiPAP Crit Value Called To Crit Value Called By Crit Value Read Back Blood Gas Notified Time Potassium 4.5 Carbon Dioxide 29 Anion Gap 12 BUN 34 H Creatinine 0.7 Est GFR ( Amer) > 60 Est GFR (Non-Af Amer) > 60 POC Glucose (mg/dL) 279 H Random Glucose 394 H Calcium 8.8 Phosphorus Magnesium Total Bilirubin 0.8 AST 38 H D ALT 36 Alkaline Phosphatase 80 NT-Pro-B Natriuret Pep Total Protein 5.8 L Albumin 2.9 L Globulin 2.9 Albumin/Globulin Ratio 1.0 Arterial Blood Potassium Venous Blood Potassium Urine Color Urine Clarity Urine pH Ur Specific [place] Urine Protein Urine Glucose (UA) Urine Ketones Urine Blood Urine Nitrate Urine Bilirubin Urine Urobilinogen Ur Leukocyte Esterase Urine RBC (Auto) Urine Microscopic WBC Urine Bacteria Blood Type Antibody Screen Crossmatch BBK History Checked 11/26/17 11/26/17 05:45 11:04 WBC RBC Hgb Hct MCV MCH MCHC RDW Plt Count MPV Neut % (Auto) Lymph % (Auto) [place] % (Auto) Eos % (Auto) Baso % (Auto) Neut # Lymph # Logan # Eos # Baso # PT INR APTT pCO2 pO2 HCO3 ABG pH ABG Total CO2 ABG O2 Saturation ABG O2 Content ABG Base Excess ABG Hemoglobin ABG Carboxyhemoglobin POC ABG HHb (Measured) ABG Methemoglobin ABG O2 Capacity Roger Test ABG Potassium VBG pH VBG pCO2 VBG HCO3 VBG Total CO2 VBG O2 Sat (Calc) VBG Base Excess VBG Potassium A-a O2 Difference Hgb O2 Saturation Sodium Chloride Glucose Lactate Vent Mode FiO2 Tidal Volume Inspiratory BiPAP Expiratory BiPAP Crit Value Called To Crit Value Called By Crit Value Read Back Blood Gas Notified Time Potassium Carbon Dioxide Anion Gap BUN Creatinine Est GFR ( Amer) Est GFR (Non-Af Amer) POC Glucose (mg/dL) 349 H 296 H Random Glucose Calcium Phosphorus Magnesium Total Bilirubin AST ALT Alkaline Phosphatase NT-Pro-B Natriuret Pep Total Protein Albumin Globulin Albumin/Globulin Ratio Arterial Blood Potassium Venous Blood Potassium Urine Color Urine Clarity Urine pH Ur Specific [place] Urine Protein Urine Glucose (UA) Urine Ketones Urine Blood Urine Nitrate Urine Bilirubin Urine Urobilinogen Ur Leukocyte Esterase Urine RBC (Auto) Urine Microscopic WBC Urine Bacteria Blood Type Antibody Screen Crossmatch BBK History Checked Microbiology 11/24/17 13:48 Blood Blood Culture - Preliminary NO GROWTH AFTER 48 HOURS 11/24/17 13:48 Blood S.aureus & Coag-Neg Staph PNA FISH - Final 11/24/17 13:48 Blood Blood Culture - Preliminary Gram Positive Cocci 11/24/17 13:48 Blood Gram Stain - Final 11/24/17 14:05 Urine Urine Culture - Final Escherichia Coli Assessment and Plan (1) Infection due to ESBL-producing Escherichia coli Status: Acute (2) UTI (urinary tract infection) Status: Acute (3) Diabetes Status: Acute (4) COPD (chronic obstructive pulmonary disease) Status: Chronic - Assessment and Plan (Free Text) Assessment: A/P- 82 year old female with multiple medical conditions admitted with hypotention. last admission urine cx- ESBL e.coli has been maintained on meropenem in [facility]. afebrile here normal wbc count + UA. urine cx- ESBL e.coli Blood cx 1 of the 2 bottles - Coag neg staph (most likely contaminant) plan- advise to continue with the meropenem that patient was already initiated on since last admission. await repeat urine cx result. would advise total of 7-10 days of IV abx for the ESBL UTI. started IV vancomycin last night since coag neg staph in 1 of the 2 admission blood cx. most likely contaminant, however, advise to continue with IV vancomycin pending repeat blood cx results. Keep trough <20. check TTE r/o any vegetations. all above d/w patient and her who is at her bedside.
[2017-11-27] MEDS: Meropenem 1 GM in Sodium Chloride 0.9% 100 ML IVPB SCH ×2 (00:03→09:52)
[2017-11-27] MEDS: Albuterol-Ipratrop 3 mg / 0.5 (3 ml) UD IH SCH ×5 (00:10→15:39)
[2017-11-27 06:29] LABS: HEMOGLOBIN 9.1 g/dL (12.0-16.0); MEAN CELL VOLUME 92.3 fl (81.0-99.0); MEAN CORPUSCULAR HEMOGLOBIN 30.8 pg (27.0-31.0); MEAN CORPUSCULAR HGB CONC 33.3 g/dL (33.0-37.0); RBC 2.94 Mil/uL (3.80-5.20); RED CELL DISTRIBUTION WIDTH 16.8 % (11.5-14.5); WHITE BLOOD COUNT 6.8 K/uL (4.8-10.8)
[2017-11-27 06:59] LABS: BLOOD UREA NITROGEN 24 mg/dl (7-17); CALCIUM 8.7 mg/dL (8.4-10.2); GFR AFRICAN-AMERICAN > 60; GFR NON-AFRICAN AMERICAN > 60
[2017-11-27] MEDS: Insulin Lispro (humaLOG) 100 Units/ml Inj SC SCH ×2 (08:15→13:19)
[2017-11-27] MEDS: Enoxaparin 40 mg Syringe SC SCH (10:52)
[2017-11-27] MEDS: Pantoprazole 40 mg EC Tab PO SCH (10:53)
--- NOTE | 2017-11-27 11:13 | CARD ---
APPROVED REPORT EXAM: Two-dimensional and M-mode echocardiogram with Doppler and color Doppler. Other Information Quality : PoorRhythm : Technically limited study due to body habitus. INDICATION Infection: 2D DIMENSIONS IVSd1.53 (0.7-1.1cm)LVDd4.38 (3.9-5.9cm) PWd1.16 (0.7-1.1cm)IVSs0.96 (0.8-1.2cm) LVDs4.06 (2.5-4.0cm)FS (%) 7.1 % PWs1.09 (0.8-1.2cm)LVEF (%)55.0 (>50%) M-Mode DIMENSIONS Left Atrium (MM)4.53 (2.5-4.0cm)IVSd1.40 (0.7-1.1cm) Aortic Root3.17 (2.2-3.7cm)LVDd4.04 (4.0-5.6cm) Aortic Cusp Exc.1.89 (1.5-2.0cm)PWd1.32 (0.7-1.1cm) IVSs1.55 cmFS (%) 31 % LVDs2.80 (2.0-3.8cm)PWs1.85 cm Mitral Valve MV E Fqknlrta22.6cm/sMV A Sorbqrot93.7cm/sE/A ratio0.6 TDI E/Lateral E'0.0E/Medial E'0.0 LEFT VENTRICLE The left ventricle is normal size. There is mild concentric left ventricular hypertrophy. The left ventricular function is normal. The left ventricular ejection fraction is within the normal range. There is normal LV segmental wall motion. Transmitral Doppler flow pattern is Grade I-abnormal relaxation pattern. RIGHT VENTRICLE The right ventricle is mildly dilated. There is normal right ventricular wall thickness. The right ventricular systolic function is normal. ATRIA The left atrium is mildly dilated. The right atrium size is normal. AORTIC VALVE The aortic valve is mildly thickened. There is trace aortic regurgitation. There is no aortic valvular stenosis. MITRAL VALVE The mitral valve is moderately thickened, a vegitation can not be ruled out There is no mitral valve stenosis. There is no mitral valve regurgitation noted. TRICUSPID VALVE The tricuspid valve is normal in structure. There is no tricuspid valve regurgitation noted. PULMONIC VALVE The pulmonary valve is normal in structure. There is no pulmonic valvular regurgitation. GREAT VESSELS The aortic root is normal in size. The IVC was not visualized. PERICARDIAL EFFUSION There is a small loculated anterior pericardial effusion. <Conclusion> S/P Limited Study The left ventricle is normal size. There is mild concentric left ventricular hypertrophy. The left ventricular function is normal. The left ventricular ejection fraction is within the normal range. There is normal LV segmental wall motion. Transmitral Doppler flow pattern is Grade I-abnormal relaxation pattern. The mitral valve is moderately thickened, a vegitation can not be ruled out
[2017-11-27] MEDS ORDERED: Verapamil 120 mg ER Tab PO SCH (11:15)
[2017-11-27] MEDS ORDERED: Verapamil 240 mg ER Tab PO SCH (11:30)
--- NOTE | 2017-11-27 12:00 | CP.PCM.DIS ---
Provider - Provider Date of Admission: 11/24/17 16:02 Attending physician: Georgette Zapata DO Primary care physician: Dr. Segundo Consults: Pulmonary consult ID consult Time Spent in preparation of Discharge (in minutes): 20 Hospital Course - Lab Results Lab Results: Micro Results 11/24/17 13:48 Blood S.aureus & Coag-Neg Staph PNA FISH - Final 11/24/17 13:48 Blood Blood Culture - Final Coagulase Neg Staphylococcus 11/24/17 13:48 Blood Gram Stain - Final 11/26/17 05:45 Blood Blood Culture - Preliminary NO GROWTH AFTER 24 HOURS 11/24/17 13:48 Blood Blood Culture - Preliminary NO GROWTH AFTER 48 HOURS 11/24/17 14:05 Urine Urine Culture - Final Escherichia Coli Most Recent Lab Values WBC 6.8 K/uL (4.8-10.8) 11/27/17 05:12 RBC 2.94 Mil/uL (3.80-5.20) L 11/27/17 05:12 Hgb 9.1 g/dL (12.0-16.0) L 11/27/17 05:12 Hct 27.2 % (34.0-47.0) L 11/27/17 05:12 MCV 92.3 fl (81.0-99.0) 11/27/17 05:12 MCH 30.8 pg (27.0-31.0) 11/27/17 05:12 MCHC 33.3 g/dL (33.0-37.0) 11/27/17 05:12 RDW 16.8 % (11.5-14.5) H 11/27/17 05:12 Plt Count 154 K/uL (130-400) 11/27/17 05:12 MPV 7.8 fl (7.2-11.7) 11/24/17 13:00 Neut % (Auto) 82.9 % (50.0-75.0) H 11/24/17 13:00 Lymph % (Auto) 11.5 % (20.0-40.0) L 11/24/17 13:00 [place] % (Auto) 5.2 % (0.0-10.0) 11/24/17 13:00 Eos % (Auto) 0.2 % (0.0-4.0) 11/24/17 13:00 Baso % (Auto) 0.2 % (0.0-2.0) 11/24/17 13:00 Neut # 8.9 K/uL (1.8-7.0) H 11/24/17 13:00 Lymph # 1.2 K/uL (1.0-4.3) 11/24/17 13:00 [place] # 0.6 K/uL (0.0-0.8) 11/24/17 13:00 Eos # 0.0 K/uL (0.0-0.7) 11/24/17 13:00 Baso # 0.0 K/uL (0.0-0.2) 11/24/17 13:00 PT 9.9 Seconds (9.8-13.1) 11/24/17 13:00 INR 0.9 (0.9-1.2) 11/24/17 13:00 APTT 28.2 Seconds (25.6-37.1) 11/24/17 13:00 pCO2 58 mm/Hg (35-45) H 11/25/17 04:41 pO2 173 mm/Hg (80-100) H 11/25/17 04:41 HCO3 33.4 mmol/L (21-28) H 11/25/17 04:41 ABG pH 7.41 (7.35-7.45) 11/25/17 04:41 ABG Total CO2 38.6 mmol/L (22-28) H 11/25/17 04:41 ABG O2 Saturation 100.6 % (95-98) H 11/25/17 04:41 ABG O2 Content 11.4 ML/dL (15-23) L 11/25/17 04:41 ABG Base Excess 10.8 mmol/L (-2.0-3.0) H 11/25/17 04:41 ABG Hemoglobin 8.0 g/dL (11.7-17.4) L 11/25/17 04:41 ABG Carboxyhemoglobin 1.9 % (0.5-1.5) H 11/25/17 04:41 POC ABG HHb (Measured) -0.6 % (0.0-5.0) L 11/25/17 04:41 ABG Methemoglobin 0.7 % (0.0-3.0) 11/25/17 04:41 ABG O2 Capacity 11.3 mL/dL (16-24) L 11/25/17 04:41 Roger Test Yes 11/25/17 04:41 ABG Potassium 4.4 mmol/L (3.6-5.2) 11/24/17 15:50 VBG pH 7.18 (7.32-7.43) L* 11/24/17 13:00 VBG pCO2 99 mmHg (40-60) H* 11/24/17 13:00 VBG HCO3 27.8 mmol/L 11/24/17 13:00 VBG Total CO2 40.0 mmol/L (22-28) H 11/24/17 13:00 VBG O2 Sat (Calc) 68.7 % (40-65) H 11/24/17 13:00 VBG Base Excess 5.0 mmol/L (0.0-2.0) H 11/24/17 13:00 VBG Potassium > 20.0 mmol/L (3.6-5.2) H* 11/24/17 13:00 A-a O2 Difference 111.0 mm/Hg 11/25/17 04:41 Hgb O2 Saturation 98.0 % (95.0-98.0) 11/25/17 04:41 Sodium 129.0 mmol/L (132-148) L 11/24/17 15:50 Chloride 91.0 mmol/L (98-107) L 11/24/17 15:50 Glucose 92 mg/dL (65-105) 11/24/17 15:50 Lactate 0.7 mmol/L (0.7-2.1) 11/24/17 15:50 Vent Mode Bipap 11/25/17 04:41 FiO2 50.0 % 11/25/17 04:41 Tidal Volume 12 11/25/17 04:41 Inspiratory BiPAP 10 11/25/17 04:41 Expiratory BiPAP 4 11/25/17 04:41 Crit Value Called To Gracia bowden 11/24/17 13:00 Crit Value Called By 11/24/17 13:00 Crit Value Read Back Y 11/24/17 13:00 Blood Gas Notified Time 1310 11/24/17 13:00 Sodium 137 mmol/l (132-148) 11/27/17 05:12 Potassium 3.9 MMOL/L (3.6-5.0) 11/27/17 05:12 Chloride 96 mmol/L (98-107) L 11/27/17 05:12 Carbon Dioxide 34 mmol/L (22-30) H 11/27/17 05:12 Anion Gap 11 (10-20) 11/27/17 05:12 BUN 24 mg/dl (7-17) H 11/27/17 05:12 Creatinine 0.8 mg/dl (0.7-1.2) 11/27/17 05:12 Est GFR ( Amer) > 60 11/27/17 05:12 Est GFR (Non-Af Amer) > 60 11/27/17 05:12 POC Glucose (mg/dL) 339 mg/dL (65-110) H 11/27/17 05:57 Random Glucose 320 mg/dL (65-105) H 11/27/17 05:12 Calcium 8.7 mg/dL (8.4-10.2) 11/27/17 05:12 Phosphorus 3.8 mg/dl (2.5-4.5) 11/24/17 13:00 Magnesium 1.8 MG/DL (1.6-2.3) 11/24/17 13:00 Total Bilirubin 0.8 mg/dl (0.2-1.3) 11/26/17 05:45 AST 38 U/L (14-36) H D 11/26/17 05:45 ALT 36 U/L (9-52) 11/26/17 05:45 Alkaline Phosphatase 80 U/L (38-126) 11/26/17 05:45 NT-Pro-B Natriuret Pep 148 pg/ml (0-900) 11/24/17 15:50 Total Protein 5.8 G/DL (6.3-8.2) L 11/26/17 05:45 Albumin 2.9 g/dL (3.5-5.0) L 11/26/17 05:45 Globulin 2.9 gm/dL (2.2-3.9) 11/26/17 05:45 Albumin/Globulin Ratio 1.0 (1.0-2.1) 11/26/17 05:45 Arterial Blood Potassium 4.4 mmol/L (3.6-5.2) 11/24/17 15:50 Venous Blood Potassium > 20.0 mmol/L (3.6-5.2) H* 11/24/17 13:00 Urine Color Yellow (YELLOW) 11/24/17 14:05 Urine Clarity Cloudy (Clear) 11/24/17 14:05 Urine pH 7.0 (5.0-8.0) 11/24/17 14:05 Ur Specific [place] 1.010 (1.003-1.030) 11/24/17 14:05 Urine Protein Negative mg/dL (NEGATIVE) 11/24/17 14:05 Urine Glucose (UA) Neg mg/dL (Normal) 11/24/17 14:05 Urine Ketones Negative mg/dL (NEGATIVE) 11/24/17 14:05 Urine Blood Negative (NEGATIVE) 11/24/17 14:05 Urine Nitrate Negative (NEGATIVE) 11/24/17 14:05 Urine Bilirubin Negative (NEGATIVE) 11/24/17 14:05 Urine Urobilinogen 0.2-1.0 mg/dL (0.2-1.0) 11/24/17 14:05 Ur Leukocyte Esterase Large Aki/uL (Negative) 11/24/17 14:05 Urine RBC (Auto) 7 /hpf (0-3) H 11/24/17 14:05 Urine Microscopic WBC 122 /hpf (0-5) H 11/24/17 14:05 Urine Bacteria Mod (<OCC) H 11/24/17 14:05 Vancomycin Trough 34.8 ug/mL (5.0-10.0) H 11/27/17 05:12 Blood Type O POSITIVE 11/25/17 16:00 Antibody Screen Negative 11/25/17 16:00 Crossmatch See Detail 11/25/17 16:00 BBK History Checked Patient has bt 11/25/17 16:00 - Hospital Course Hospital Course: 82 year old female with a past medical history significant for COPD on home oxygen, essential hypertension, Type 2 diabetes mellitus controlled with insulin , history of CHF, anxiety, depression, recently discharged 2 weeks ago for NSTEMI, CHF, acute on chronic respiratory failure, +ESBL UTI presented to the ER , after being sent from [facility] for low blood pressure. On arrival, patient BP was in the 80s systolic and responded to fluids. Found to have UTI. Lactic acid elevated. She had been on Merrem at [facility] and was discharged on 11/11/17. patient admitted was admitted with diagnosis of sepsis secondary to ESBL E. Coli . ID was consulted and patient started on Meropenem IV .1 of her blood cultures was reported as gram positive cocci in clusters and Echo showed some mitral valve thickening that was read unable to rule out vegetation. Repeat 2 more bottles of blood cx were reported as no growth and patient remained afebrile with normal WBC count which makes the contamination highly likely . Discussed with ID and recommended continuation of vancomycin IV for 7 more days together with Meropenem. patient at present is back to her baseline, stable , saturating well on 4 L O2 via NC Her Bp meds restarted since her BP started to be elevated Will discharge patient back to [facility] on current medical management 1. Sepsis sec to UTI ESBL E Coli ( POA) Pt was hypotensive on admission, with elevated Lactic acid no fever, no leukocytosis Urinalysis showed large leuko, [id number] Urine cx reported as ESBL E coli ID consulted- DR Beauchamp and recommended Meropenem IV for 10 days Blood c/s : GRam + cocci in cluster 1 out of 2 bottles Discussed with ID - rec to IV vanco though prob contaminant repeat blood cx x2 negative ECHO showed thickened mitral valve , can not rule out vegetation will continue with Vanco IV for 7 days Held Vanco today since levels were reported 34 . Decreased dose 750 mg IV daily . Will need to check levels in 3 days in [facility]. Check BMP in 3 days 2. Acute on Chronic CHF, systolic and diastolic dysfunction ECHO done last year showed EF 35%. Repeat Echo today showed normal EF continue Lasix no BB due to COPD restarted Verapamil and ARB once BP better 3. Acute on Chronic Respiratory Failure with Hypoxia and Hypercapnea sec to COPD exacerbation and CHF Pt started on Bipap now feels better and refused to keep Bipap - placed on NC 4 L and doing well Pulm consulted cont Duonebs cont Prednisone 30 mg bid and peg slowly 4. 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 DM type II Accucheck with coverage pt's glucose low bec of poor PO intake initially but now with hyperglycemia on Levemir dose 6. Anemia of chronic disease worsened chronic anemia now hgb 7.9 transfused 1 unit PRBC 7. Anxiety/ depression on trazodone and temazepam at home 8.DVT prophylaxis Lovenox Discharge Exam - Head Exam Head Exam: ATRAUMATIC, NORMAL INSPECTION, NORMOCEPHALIC - Eye Exam Eye Exam: EOMI, PERRL - ENT Exam ENT Exam: Mucous Membranes Moist, Normal Exam - Neck Exam Neck exam: Full Rom, Normal Inspection - Respiratory Exam Respiratory Exam: Prolonged Expiratory Phase. absent: Rhonchi, Wheezes, Respiratory Distress - Cardiovascular Exam Cardiovascular Exam: REGULAR RHYTHM, +S1, +S2. absent: JVD - GI/Abdominal Exam GI & Abdominal Exam: Normal Bowel Sounds, Soft. absent: Distended, Rigid, Tenderness - Rectal Exam Rectal Exam: Deferred - Extremities Exam Extremities exam: normal capillary refill, normal inspection, pedal pulses present - Back Exam Back exam: NORMAL INSPECTION - Neurological Exam Neurological exam: Alert, CN II-XII Intact, Oriented x3 - Psychiatric Exam Psychiatric exam: Normal Affect - Skin Skin Exam: Dry, Pallor, Warm Discharge Plan - Discharge Medications Prescriptions: Vancomycin/0.9 % Sod Chloride [Vanco 750 mg/150 ml-0.9% NaCl] 750 mg IV DAILY # 7 [email or web address] - Follow Up Plan Condition: IMPROVED Disposition: TRANSF TO SNF Patient education suggested?: Yes Referrals: Tiffany Segundo MD [Staff Provider] -
--- NOTE | 2017-11-27 13:06 | CP.PCM.PN ---
Subjective - Date & Time of Evaluation Date of Evaluation: 11/27/17 Time of Evaluation: 13:06 - Subjective Subjective: CLINICALLY IMPROVED COUGH AND SOB LESS Objective - Vital Signs/Intake and Output Vital Signs (last 24 hours): Temp Pulse Resp BP Pulse Ox 97.4 F L 94 H 18 128/62 99 11/27/17 12:15 11/27/17 12:15 11/27/17 12:15 11/27/17 12:15 11/27/17 12:15 - Medications Medications: Current Medications Acetaminophen/Codeine Phosphate (Tylenol/Codeine 300 Mg/30 Mg) 1 tab PO Q8 PRN PRN Reason: Pain, moderate (4-7) Last Admin: 11/25/17 17:18 Dose: 1 tab Albuterol/Ipratropium (Duoneb 3 Mg/0.5 Mg (3 Ml) Ud) 3 ml IH RQ4 [facility] Last Admin: 11/27/17 11:51 Dose: 3 ml Aspirin (Ecotrin) 81 mg PO DAILY [facility] Last Admin: 11/27/17 10:53 Dose: 81 mg Enoxaparin Sodium (Lovenox) 40 mg SC DAILY [facility] PRN Reason: Protocol Last Admin: 11/27/17 10:52 Dose: 40 mg Furosemide (Lasix) 40 mg PO DAILY [facility] Last Admin: 11/27/17 10:54 Dose: 40 mg Meropenem 1 gm/ Sodium (Chloride) 100 mls @ 100 mls/hr IVPB Q8 [facility] PRN Reason: Protocol Last Admin: 11/27/17 09:52 Dose: 100 mls/hr Insulin Detemir (Levemir) 18 units SC [facility] Last Admin: 11/26/17 22:53 Dose: 18 units Insulin Human Lispro (Humalog) 0 units SC ACHS [facility] PRN Reason: Protocol Last Admin: 11/27/17 08:15 Dose: 4 u Losartan Potassium (Cozaar) 50 mg PO DAILY [facility] Magnesium Hydroxide (Milk Of Magnesia) 30 ml PO DAILY PRN PRN Reason: Constipation Montelukast Sodium (Singulair) 10 mg PO HS [facility] Last Admin: 11/26/17 21:40 Dose: 10 mg Pantoprazole Sodium (Protonix Ec Tab) 40 mg PO DAILY [facility] Last Admin: 11/27/17 10:53 Dose: 40 mg Prednisone (Prednisone Tab) 30 mg PO BID [facility] Last Admin: 11/27/17 10:53 Dose: 30 mg Temazepam (Restoril) 30 mg PO HS [facility] Last Admin: 11/26/17 21:40 Dose: 30 mg Trazodone HCl (Desyrel) 150 mg PO HS [facility] Last Admin: 11/26/17 21:40 Dose: 150 mg Verapamil HCl (Calan Sr Tab) 240 mg PO DAILY [facility] - Labs Labs: 11/27/17 05:12 11/27/17 05:12 PT 9.9 Seconds (9.8-13.1) 11/24/17 13:00 INR 0.9 (0.9-1.2) 11/24/17 13:00 APTT 28.2 Seconds (25.6-37.1) 11/24/17 13:00 - Constitutional Appears: No Acute Distress - Head Exam Head Exam: ATRAUMATIC, NORMAL INSPECTION, NORMOCEPHALIC - Eye Exam Eye Exam: EOMI, Normal appearance, PERRL Pupil Exam: NORMAL ACCOMODATION, PERRL - ENT Exam ENT Exam: Mucous Membranes Moist, Normal Exam - Neck Exam Neck Exam: Full ROM, Normal Inspection. absent: Lymphadenopathy - Respiratory Exam Respiratory Exam: Decreased Breath Sounds, NORMAL BREATHING PATTERN - Cardiovascular Exam Cardiovascular Exam: REGULAR RHYTHM, +S1, +S2. absent: Murmur - GI/Abdominal Exam GI & Abdominal Exam: Soft, Normal Bowel Sounds. absent: Tenderness - Rectal Exam Rectal Exam: NORMAL INSPECTION - Extremities Exam Extremities Exam: Full ROM, Normal Capillary Refill, Normal Inspection. absent : Joint Swelling, Pedal Edema - Back Exam Back Exam: NORMAL INSPECTION - Neurological Exam Neurological Exam: Alert, Awake, CN II-XII Intact, Normal Gait, Oriented x3 - Psychiatric Exam Psychiatric exam: Normal Affect, Normal Mood - Skin Skin Exam: Dry, Intact, Normal Color, Warm Assessment and Plan - Assessment and Plan (Free Text) Assessment: COPD IMPROVED Plan: OK TO TRANSFER TO LONGTERM WILL SIGN OFF CASE
--- NOTE | 2017-11-27 15:30 | CP.PCM.PN ---
Subjective - Date & Time of Evaluation Date of Evaluation: 11/27/17 Time of Evaluation: 15:30 - Subjective Subjective: ID note- Pt. seen and examined today. pt. sitting up in bed in good spirits. denies any fever or chills. denies any pain. Objective - Vital Signs/Intake and Output Vital Signs (last 24 hours): Temp Pulse Resp BP Pulse Ox 97.4 F L 94 H 18 128/62 99 11/27/17 12:15 11/27/17 13:18 11/27/17 12:15 11/27/17 13:18 11/27/17 12:15 - Medications Medications: Current Medications Acetaminophen/Codeine Phosphate (Tylenol/Codeine 300 Mg/30 Mg) 1 tab PO Q8 PRN PRN Reason: Pain, moderate (4-7) Last Admin: 11/25/17 17:18 Dose: 1 tab Albuterol/Ipratropium (Duoneb 3 Mg/0.5 Mg (3 Ml) Ud) 3 ml IH RQ4 [facility] Last Admin: 11/27/17 11:51 Dose: 3 ml Aspirin (Ecotrin) 81 mg PO DAILY [facility] Last Admin: 11/27/17 10:53 Dose: 81 mg Enoxaparin Sodium (Lovenox) 40 mg SC DAILY [facility] PRN Reason: Protocol Last Admin: 11/27/17 10:52 Dose: 40 mg Furosemide (Lasix) 40 mg PO DAILY [facility] Last Admin: 11/27/17 10:54 Dose: 40 mg Meropenem 1 gm/ Sodium (Chloride) 100 mls @ 100 mls/hr IVPB Q8 [facility] PRN Reason: Protocol Last Admin: 11/27/17 09:52 Dose: 100 mls/hr Insulin Detemir (Levemir) 18 units SC [facility] Last Admin: 11/26/17 22:53 Dose: 18 units Insulin Human Lispro (Humalog) 0 units SC ACHS [facility] PRN Reason: Protocol Last Admin: 11/27/17 13:19 Dose: 3 u Losartan Potassium (Cozaar) 50 mg PO DAILY [facility] Last Admin: 11/27/17 13:18 Dose: 50 mg Magnesium Hydroxide (Milk Of Magnesia) 30 ml PO DAILY PRN PRN Reason: Constipation Montelukast Sodium (Singulair) 10 mg PO [facility] Last Admin: 11/26/17 21:40 Dose: 10 mg Pantoprazole Sodium (Protonix Ec Tab) 40 mg PO DAILY [facility] Last Admin: 11/27/17 10:53 Dose: 40 mg Prednisone (Prednisone Tab) 30 mg PO BID [facility] Last Admin: 11/27/17 10:53 Dose: 30 mg Temazepam (Restoril) 30 mg PO HS [facility] Last Admin: 11/26/17 21:40 Dose: 30 mg Trazodone HCl (Desyrel) 150 mg PO HS [facility] Last Admin: 11/26/17 21:40 Dose: 150 mg Verapamil HCl (Calan Sr Tab) 240 mg PO DAILY [facility] Last Admin: 11/27/17 13:17 Dose: 240 mg - Labs Labs: 11/27/17 05:12 11/27/17 05:12 PT 9.9 Seconds (9.8-13.1) 11/24/17 13:00 INR 0.9 (0.9-1.2) 11/24/17 13:00 APTT 28.2 Seconds (25.6-37.1) 11/24/17 13:00 - Additional Findings Additional findings: - Constitutional Appears: No Acute Distress - Head Exam Head Exam: ATRAUMATIC - Eye Exam Eye Exam: EOMI, PERRL - ENT Exam ENT Exam: Normal Oropharynx - Neck Exam Neck exam: Positive for: Full Rom - Respiratory Exam Respiratory Exam: Clear to Auscultation Bilateral, NORMAL BREATHING PATTERN - Cardiovascular Exam Cardiovascular Exam: RRR, +S1, +S2 - GI/Abdominal Exam GI & Abdominal Exam: Normal Bowel Sounds, Soft Additional comments: NT, ND No CVA tenderness - Extremities Exam Additional comments: no edema b/l LE - Neurological Exam Neurological exam: Alert and oriented Laboratory Results - last 72 hr 11/24/17 11/25/17 11/25/17 21:45 04:41 05:27 WBC RBC Hgb Hct MCV MCH MCHC RDW Plt Count pCO2 58 H pO2 173 H HCO3 33.4 H ABG pH 7.41 ABG Total CO2 38.6 H ABG O2 Saturation 100.6 H ABG O2 Content 11.4 L ABG Base Excess 10.8 H ABG Hemoglobin 8.0 L ABG Carboxyhemoglobin 1.9 H POC ABG HHb (Measured) -0.6 L ABG Methemoglobin 0.7 ABG O2 Capacity 11.3 L Roger Test Yes A-a O2 Difference 111.0 Hgb O2 Saturation 98.0 Vent Mode Bipap FiO2 50.0 Tidal Volume 12 Inspiratory BiPAP 10 Expiratory BiPAP 4 Sodium Potassium Chloride Carbon Dioxide Anion Gap BUN Creatinine Est GFR ( Amer) Est GFR (Non-Af Amer) POC Glucose (mg/dL) 93 115 H Random Glucose Calcium Total Bilirubin AST ALT Alkaline Phosphatase Total Protein Albumin Globulin Albumin/Globulin Ratio Vancomycin Trough Blood Type Antibody Screen Crossmatch BBK History Checked 11/25/17 11/25/17 11/25/17 10:20 10:20 10:55 WBC 8.6 RBC 2.51 L Hgb 7.7 L Hct 23.2 L MCV 92.2 MCH 30.8 MCHC 33.4 RDW 18.1 H Plt Count 159 pCO2 pO2 HCO3 ABG pH ABG Total CO2 ABG O2 Saturation ABG O2 Content ABG Base Excess ABG Hemoglobin ABG Carboxyhemoglobin POC ABG HHb (Measured) ABG Methemoglobin ABG O2 Capacity Roger Test A-a O2 Difference Hgb O2 Saturation Vent Mode FiO2 Tidal Volume Inspiratory BiPAP Expiratory BiPAP Sodium 135 Potassium 4.5 Chloride 94 L Carbon Dioxide 36 H Anion Gap 10 BUN 36 H Creatinine 0.8 Est GFR ( Amer) > 60 Est GFR (Non-Af Amer) > 60 POC Glucose (mg/dL) 93 Random Glucose 100 Calcium 9.4 Total Bilirubin AST ALT Alkaline Phosphatase Total Protein Albumin Globulin Albumin/Globulin Ratio Vancomycin Trough Blood Type Antibody Screen Crossmatch BBK History Checked 11/25/17 11/25/17 11/25/17 15:54 16:00 21:15 WBC RBC Hgb Hct MCV MCH MCHC RDW Plt Count pCO2 pO2 HCO3 ABG pH ABG Total CO2 ABG O2 Saturation ABG O2 Content ABG Base Excess ABG Hemoglobin ABG Carboxyhemoglobin POC ABG HHb (Measured) ABG Methemoglobin ABG O2 Capacity Roger Test A-a O2 Difference Hgb O2 Saturation Vent Mode FiO2 Tidal Volume Inspiratory BiPAP Expiratory BiPAP Sodium Potassium Chloride Carbon Dioxide Anion Gap BUN Creatinine Est GFR ( Amer) Est GFR (Non-Af Amer) POC Glucose (mg/dL) 230 H 279 H Random Glucose Calcium Total Bilirubin AST ALT Alkaline Phosphatase Total Protein Albumin Globulin Albumin/Globulin Ratio Vancomycin Trough Blood Type O POSITIVE Antibody Screen Negative Crossmatch See Detail BBK History Checked Patient has bt 11/26/17 11/26/17 11/26/17 05:45 05:45 05:45 WBC 6.4 RBC 2.97 L Hgb 9.0 L Hct 27.9 L MCV 93.9 MCH 30.2 MCHC 32.1 L RDW 17.0 H Plt Count 149 pCO2 pO2 HCO3 ABG pH ABG Total CO2 ABG O2 Saturation ABG O2 Content ABG Base Excess ABG Hemoglobin ABG Carboxyhemoglobin POC ABG HHb (Measured) ABG Methemoglobin ABG O2 Capacity Roger Test A-a O2 Difference Hgb O2 Saturation Vent Mode FiO2 Tidal Volume Inspiratory BiPAP Expiratory BiPAP Sodium 133 Potassium 4.5 Chloride 97 L Carbon Dioxide 29 Anion Gap 12 BUN 34 H Creatinine 0.7 Est GFR ( Amer) > 60 Est GFR (Non-Af Amer) > 60 POC Glucose (mg/dL) 349 H Random Glucose 394 H Calcium 8.8 Total Bilirubin 0.8 AST 38 H D ALT 36 Alkaline Phosphatase 80 Total Protein 5.8 L Albumin 2.9 L Globulin 2.9 Albumin/Globulin Ratio 1.0 Vancomycin Trough Blood Type Antibody Screen Crossmatch BBK History Checked 11/26/17 11/26/17 11/26/17 11:04 15:54 22:33 WBC RBC Hgb Hct MCV MCH MCHC RDW Plt Count pCO2 pO2 HCO3 ABG pH ABG Total CO2 ABG O2 Saturation ABG O2 Content ABG Base Excess ABG Hemoglobin ABG Carboxyhemoglobin POC ABG HHb (Measured) ABG Methemoglobin ABG O2 Capacity Roger Test A-a O2 Difference Hgb O2 Saturation Vent Mode FiO2 Tidal Volume Inspiratory BiPAP Expiratory BiPAP Sodium Potassium Chloride Carbon Dioxide Anion Gap BUN Creatinine Est GFR ( Amer) Est GFR (Non-Af Amer) POC Glucose (mg/dL) 296 H 213 H 335 H Random Glucose Calcium Total Bilirubin AST ALT Alkaline Phosphatase Total Protein Albumin Globulin Albumin/Globulin Ratio Vancomycin Trough Blood Type Antibody Screen Crossmatch BBK History Checked 11/27/17 11/27/17 11/27/17 05:12 05:12 05:12 WBC 6.8 RBC 2.94 L Hgb 9.1 L Hct 27.2 L MCV 92.3 MCH 30.8 MCHC 33.3 RDW 16.8 H Plt Count 154 pCO2 pO2 HCO3 ABG pH ABG Total CO2 ABG O2 Saturation ABG O2 Content ABG Base Excess ABG Hemoglobin ABG Carboxyhemoglobin POC ABG HHb (Measured) ABG Methemoglobin ABG O2 Capacity Roger Test A-a O2 Difference Hgb O2 Saturation Vent Mode FiO2 Tidal Volume Inspiratory BiPAP Expiratory BiPAP Sodium 137 Potassium 3.9 Chloride 96 L Carbon Dioxide 34 H Anion Gap 11 BUN 24 H Creatinine 0.8 Est GFR ( Amer) > 60 Est GFR (Non-Af Amer) > 60 POC Glucose (mg/dL) Random Glucose 320 H Calcium 8.7 Total Bilirubin AST ALT Alkaline Phosphatase Total Protein Albumin Globulin Albumin/Globulin Ratio Vancomycin Trough 34.8 H Blood Type Antibody Screen Crossmatch BBK History Checked 11/27/17 11/27/17 05:57 11:44 WBC RBC Hgb Hct MCV MCH MCHC RDW Plt Count pCO2 pO2 HCO3 ABG pH ABG Total CO2 ABG O2 Saturation ABG O2 Content ABG Base Excess ABG Hemoglobin ABG Carboxyhemoglobin POC ABG HHb (Measured) ABG Methemoglobin ABG O2 Capacity Roger Test A-a O2 Difference Hgb O2 Saturation Vent Mode FiO2 Tidal Volume Inspiratory BiPAP Expiratory BiPAP Sodium Potassium Chloride Carbon Dioxide Anion Gap BUN Creatinine Est GFR ( Amer) Est GFR (Non-Af Amer) POC Glucose (mg/dL) 339 H 251 H Random Glucose Calcium Total Bilirubin AST ALT Alkaline Phosphatase Total Protein Albumin Globulin Albumin/Globulin Ratio Vancomycin Trough Blood Type Antibody Screen Crossmatch BBK History Checked Microbiology 11/24/17 13:48 Blood Blood Culture - Preliminary NO GROWTH AFTER 3 DAYS 11/24/17 13:48 Blood S.aureus & Coag-Neg Staph PNA FISH - Final 11/24/17 13:48 Blood Blood Culture - Final Coagulase Neg Staphylococcus 11/24/17 13:48 Blood Gram Stain - Final 11/26/17 05:45 Blood Blood Culture - Preliminary NO GROWTH AFTER 24 HOURS 11/24/17 14:05 Urine Urine Culture - Final Escherichia Coli Assessment and Plan (1) Infection due to ESBL-producing Escherichia coli Status: Acute (2) UTI (urinary tract infection) Status: Acute (3) Diabetes Status: Acute (4) COPD (chronic obstructive pulmonary disease) Status: Chronic - Assessment and Plan (Free Text) Assessment: A/P- 82 year old female with multiple medical conditions admitted with hypotention. last admission urine cx- ESBL e.coli has been maintained on meropenem in [facility]. afebrile normal wbc count + UA. urine cx- ESBL e.coli Blood cx 1 of the 2 bottles - Coag neg staph (most likely contaminant) repeat blood cx- neg x 1 TTE- inconclusive as per report ready by hogshead liner! plan- advise to continue with the meropenem that patient was already initiated on since last admission. would advise total of 7-10 days of IV abx for the ESBL UTI. started IV vancomycin last night since coag neg staph in 1 of the 2 admission blood cx. most likely contaminant, however, advise to continue with IV vancomycin for 7 days since the [place] as read by hogshead liner inconclusive for r/o veg. doubt 34 was a true trough reading, however, advise to hold vanco for now and check another trough in am and if <20 to redose and reduce dose to 750 mg Iv daily for 7 days. check another blood cx as well. all above d/w patient and her nurse.
[2017-11-27 16:08] VITALS: BP 150/72; PULSE 100; RESP 20; TEMP 98.5; O2SAT 96
[2017-11-30] MEDS ORDERED: ALENDRONATE 70 MG TAB PO SCH (16:08)
== END 2017-11-27 16:00 | DRG 871 ==
LOC: H.ER 11:28 → H.ERHOLD 16:02 → H.TEL 20:43
PROVIDERS: ADMIT Student in an Organized Health Care Education/Training Program; ATTEND Student in an Organized Health Care Education/Training Program
PROC: 30233N1 Transfusion of Nonautologous Red Blood Cells into Peripheral Vein, Percutaneous Approach (ICD-10-PCS; principal; 2017-11-26)
DX: A41.51 Sepsis due to Escherichia coli [E. coli] (principal); J96.21 Acute and chronic respiratory failure with hypoxia; L89.132 Pressure ulcer of right lower back, stage 2; L89.301 Pressure ulcer of unspecified buttock, stage 1; E87.2 Acidosis; L89.313 Pressure ulcer of right buttock, stage 3; I11.0 Hypertensive heart disease with heart failure; L89.151 Pressure ulcer of sacral region, stage 1; I95.9 Hypotension, unspecified; I50.42 Chronic combined systolic (congestive) and diastolic (congestive) heart failure; J96.22 Acute and chronic respiratory failure with hypercapnia; J44.1 Chronic obstructive pulmonary disease with (acute) exacerbation; J98.11 Atelectasis; N39.0 Urinary tract infection, site not specified; D63.8 Anemia in other chronic diseases classified elsewhere; E11.9 Type 2 diabetes mellitus without complications; E03.9 Hypothyroidism, unspecified; E78.00 Pure hypercholesterolemia, unspecified; F32.9 Major depressive disorder, single episode, unspecified; F41.9 Anxiety disorder, unspecified; G89.29 Other chronic pain; I25.2 Old myocardial infarction; I25.10 Atherosclerotic heart disease of native coronary artery without angina pectoris; M06.9 Rheumatoid arthritis, unspecified; Z16.12 Extended spectrum beta lactamase (ESBL) resistance; Z66 Do not resuscitate; Z79.82 Long term (current) use of aspirin; Z79.83 Long term (current) use of bisphosphonates; Z79.899 Other long term (current) drug therapy; Z87.01 Personal history of pneumonia (recurrent); Z87.891 Personal history of nicotine dependence; Z90.49 Acquired absence of other specified parts of digestive tract; Z99.81 Dependence on supplemental oxygen; K29.70 Gastritis, unspecified, without bleeding; M19.90 Unspecified osteoarthritis, unspecified site; Z79.84 Long term (current) use of oral hypoglycemic drugs; M54.9 Dorsalgia, unspecified

== ENCOUNTER 2017-12-08 11:36 | Inpatient (IN) | payer MEDICARE, BC ==
[2017-12-08 11:36] VITALS: BMI 25.4
[2017-12-08] MEDS ORDERED: Dextrose 50% SYRINGE Inj (50 ml) IVP ONE (14:17)
[2017-12-08] MEDS ORDERED: Dextrose 50% SYRINGE Inj (50 ml) ONE (14:19)
[2017-12-08 14:46] LABS: VENOUS BLOOD GAS BASE EXCESS 21.8 mmol/L (0.0-2.0); VENOUS BLOOD GAS PCO2 80 mmHg (40-60); VENOUS BLOOD GAS PO2 56 mm/Hg (30-55); VENOUS BLOOD PH 7.41 (7.32-7.43)
[2017-12-08] MEDS ORDERED: Sodium Chloride 0.9% 1,000 ML IV ONE ×2 (14:48→15:48)
[2017-12-08 14:49] LABS: BASO # 0.1 K/uL (0.0-0.2); BASO % 0.4 % (0.0-2.0); EOS % 0.1 % (0.0-4.0); HEMOGLOBIN 11.5 g/dL (12.0-16.0); LYMPH # 1.7 K/uL (1.0-4.3); LYMPH % 7.9 % (20.0-40.0); MEAN CELL VOLUME 93.2 fl (81.0-99.0); MEAN CORPUSCULAR HEMOGLOBIN 30.7 pg (27.0-31.0); MEAN CORPUSCULAR HGB CONC 32.9 g/dL (33.0-37.0); MEAN PLATELET VOLUME 7.5 fl (7.2-11.7); MONO # 0.9 K/uL (0.0-0.8); MONO % 4.2 % (0.0-10.0); NEUT # 18.6 K/uL (1.8-7.0); NEUT % 87.4 % (50.0-75.0); NRBC % 0.1 % (0.0-0.0); PLATELET COUNT 258 K/uL (130-400); RBC 3.77 Mil/uL (3.80-5.20); RED CELL DISTRIBUTION WIDTH 17.3 % (11.5-14.5); WHITE BLOOD COUNT 21.3 K/uL (4.8-10.8)
[2017-12-08 14:58] LABS: ABG ALLEN TEST YES; ARTERIAL BLOOD GAS HCO3 41.3 mmol/L (21-28); ARTERIAL BLOOD GAS HEMOGLOBIN 10.9 g/dL (11.7-17.4); ARTERIAL BLOOD GAS O2 CAPACITY 14.8 mL/dL (16-24); ARTERIAL BLOOD GAS O2 CONTENT 14.7 ML/dL (15-23); ARTERIAL BLOOD GAS O2 SAT 99.4 % (95-98); ARTERIAL BLOOD GAS PCO2 64 mm/Hg (35-45); ARTERIAL BLOOD GAS PH 7.48 (7.35-7.45); ARTERIAL BLOOD GAS PO2 111 mm/Hg (80-100); ARTERIAL BLOOD GAS TCO2 49.7 mmol/L (22-28)
[2017-12-08 15:15] LABS: ANISOCYTOSIS SLIGHT; BANDS 7 % (0-2); LYMPHOCYTE 4 % (20-50); MONOCYTE 2 % (0-10); NEUTROPHIL 87 % (42-75); PLATELET ESTIMATE NORMAL (NORMAL); TOTAL CELLS COUNTED 100
[2017-12-08 15:16] LABS: HYPOCHROMIC SLIGHT
[2017-12-08 15:17] LABS: OVALOCYTES SLIGHT; SMUDGE CELLS PRESENT
[2017-12-08 15:29] LABS: ALB/GLOB RATIO 1.1 (1.0-2.1); ALBUMIN 3.1 g/dL (3.5-5.0); ALT/SGPT 32 U/L (9-52); AST/SGOT 23 U/L (14-36); BLOOD UREA NITROGEN 54 mg/dl (7-17); CALCIUM 10.9 mg/dL (8.4-10.2); GFR AFRICAN-AMERICAN > 60; GFR NON-AFRICAN AMERICAN 53
--- NOTE | 2017-12-08 15:34 | RAD ---
PROCEDURE: CHEST RADIOGRAPH, 1 VIEW HISTORY: Fever COMPARISON: 11/24/2017. FINDINGS: LUNGS: The lungs are hyperinflated and there is peribronchial thickening with chronic changes in both lungs. There is multifocal airspace disease in the left upper lobe. PLEURA: No pneumothorax or pleural fluid seen. CARDIOVASCULAR: Normal. OSSEOUS STRUCTURES: No significant abnormalities. VISUALIZED UPPER ABDOMEN: Normal. OTHER FINDINGS: None. IMPRESSION: Findings are concerning for multifocal left upper lobe pneumonia. Follow-up is advised.
--- NOTE | 2017-12-08 15:48 | ED PDOC ---
HPI: SOB/CHF/COPD Time Seen by Provider: 12/08/17 12:25 Chief Complaint (Nursing): Fever History Per: Patient, EMS (nh transfer sheet) History/Exam Limitations: clinical condition Onset/Duration Of Symptoms: Gradual (today) Current Symptoms Are (Timing): Still Present Current Respiratory Medications: See Home Med List Severity: Moderate Recently: Hospitalized (d/c last week) Additional History Per: Patient, Family, Fpc Additional Complaint(s): pt from [facility] for evaluation of fever and low bp. pt discharged last week for uti. Past Medical History Reviewed: Historical Data, Nursing Documentation, Vital Signs Vital Signs: Last Vital Signs Temp 99.8 F H 12/08/17 12:00 Pulse 123 H 12/08/17 11:41 Resp 20 12/08/17 11:41 BP 95/50 L 12/08/17 11:41 Pulse Ox 92 L 12/08/17 15:48 - Medical History PMH: Anemia, Anxiety, Arthritis, Asthma, CAD, CHF, COPD, Depression, Diabetes, Emphysema, Gastritis, HTN, Hypercholesterolemia, Hypothyroidism, Pneumonia, Rheumatoid Arthritis Denies: HIV, Chronic Kidney Disease, Seizures - Surgical History Surgical History: Appendectomy - Family History Family History: States: Unknown Family Hx - Living Arrangements Living Arrangements: Fpc/Assist Lv - Home Medications Home Medications: Ambulatory Orders Medication Instructions Recorded Doxazosin [Cardura] 8 mg PO DAILY 05/19/17 Glimepiride [amaRYL] 2 mg PO DAILY 05/19/17 Montelukast [Singulair] 10 mg PO HS 05/19/17 Temazepam [Restoril] 30 mg PO HS 05/19/17 Trazodone HCl 150 mg PO HS 05/19/17 Verapamil HCl [Verapamil ER] 240 mg PO DAILY 05/19/17 Multivitamin/Iron/Folic Acid 1 tab PO DAILY 10/12/17 [Centrum Complete Multivit Tab] Acetaminophen/Codeine 1 tab PO Q8 PRN 11/06/17 [Tylenol/Codeine 300 MG/30 MG] Alendronate [Fosamax] 70 mg PO MO 11/06/17 Esomeprazole Magnesium [Nexium] 40 mg PO DAILY 11/06/17 Insulin Regular [HumuLIN R] 2 - 6 unit SC AC 11/06/17 Irbesartan 150 mg PO DAILY 11/06/17 Lidocaine 5% [Lidoderm] 1 patch TD DAILY 11/06/17 Magnesium Hydroxide [Milk Of 30 ml PO DAILY PRN 11/06/17 Magnesia] Aspirin [Ecotrin] 81 mg PO DAILY tabec 11/11/17 Furosemide [Lasix] 40 mg PO BID tab 11/11/17 Levalbuterol [Xopenex] 1.25 mg INH RQ4 neb 11/11/17 Acetaminophen [Tylenol 325mg tab] 650 mg PO Q4H PRN 12/08/17 Acetaminophen [Tylenol 325mg tab] 650 mg PO Q4H PRN 12/08/17 Calcium Carbonate [Caltrate] 600 mg PO BID 12/08/17 Enoxaparin [Lovenox] 40 mg SC QPM 12/08/17 Insulin Glargine, Recombina 18 unit SC HS 12/08/17 [Lantus] Mag Hydrox/Aluminum Hyd/Simeth 30 ml PO Q4H PRN 12/08/17 [Maalox Advanced Suspension] Menthol [Icy Hot] 1 patch TD DAILY 12/08/17 Silver Sulfadiazine 1% [Silvadene 1 appl TOP QSHIFT 12/08/17 1%] predniSONE [predniSONE Tab] 10 mg PO DAILY 12/08/17 traMADol [Ultram] 50 mg PO Q8H PRN 12/08/17 - Allergies Allergies/Adverse Reactions: Allergies Allergy/AdvReac Type Severity Reaction Status Date / Time No Known Allergies Allergy Verified 11/06/17 16:50 Review of Systems Review Of Systems: ROS cannot be obtained secondary to pt's inabilty to answer questions. Constitutional: Negative for: Fever, Chills Cardiovascular: Negative for: Chest Pain, Palpitations Respiratory: Positive for: Cough. Negative for: Shortness of Breath Gastrointestinal: Negative for: Vomiting, Diarrhea Physical Exam - Reviewed Nursing Documentation Reviewed: Yes Vital Signs Reviewed: Yes - Physical Exam Appears: Positive for: Uncomfortable Skin: Positive for: Normal Color, Warm, Dry Eye Exam: Positive for: Normal appearance, EOMI, PERRL Neck: Positive for: Normal, Painless ROM, Supple Cardiovascular/Chest: Positive for: Chest Non Tender, Tachycardia. Negative for : Edema, Gallop, Murmur, Friction Rub Respiratory: Positive for: Rales (left lower lobe). Negative for: Decreased Breath Sounds, Accessory Muscle Use, Crackles, Wheezing, Respiratory Distress Pulses-Radial (L): 2+ Pulses-Radial (R): 2+ Gastrointestinal/Abdominal: Positive for: Normal Exam, Bowel Sounds, Soft. Negative for: Tenderness Back: Positive for: Normal Inspection. Negative for: L CVA Tenderness, R CVA Tenderness Extremity: Positive for: Normal ROM. 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 Negative for: Oriented (at baseline per family at bedside), Motor/Sensory Deficits, Aphasia, Facial Droop - Laboratory Results Result Diagrams: 12/08/17 14:30 12/08/17 14:30 - ECG ECG: Positive for: Interpreted By Me ECG Rhythm: Positive for: Normal QRS, Normal ST Segment, Sinus Rhythm, ST/T Changes Interpretation Of Abn EKG: incomplete rbbb no changes 11/24/2017 O2 Sat by Pulse Oximetry: 92 Pulse Ox Interpretation: Abnormal - Radiology X-Ray Interpretation: Infiltrates (left upper lobe infiltrate) - Progress ED Course And Treament: will admit for nosocomial pna family agree's with plan Condition: Improved Disposition - Clinical Impression Clinical Impression: Pneumonia - Patient ED Disposition Is Patient to be Admitted: No Counseled Patient/Family Regarding: Studies Performed, Diagnosis - Disposition Disposition Time: 16:36 Condition: STABLE - Pt Status Changed To: Hospital Disposition Of: Inpatient - Admit Certification Admit to Inpatient:: After my assessment, the patient will require hospitalization for at least two midnights. This is because of the severity of symptoms shown, intensity of services needed, and/or the medical risk in this patient being treated as an outpatient. - POA Present On Arrival: None
[2017-12-08] MEDS ORDERED: Piperacillin/Tazobact 3.375 GM in Sodium Chloride 0.9% 50 ML IVPB ONE (16:00)
[2017-12-08 16:32] LABS: URINE BACTERIA RARE (<OCC); URINE BILIRUBIN NEGATIVE (NEGATIVE); URINE BLOOD NEGATIVE (NEGATIVE); URINE CLARITY SLIGHTY-CLOUDY (Clear); URINE COLOR YELLOW (YELLOW); URINE GLUCOSE (UA) NEG (Normal); URINE LEUKOCYTE ESTERASE TRACE Leu/uL (Negative); URINE NITRATE NEGATIVE (NEGATIVE); URINE PROTEIN NEGATIVE (NEGATIVE); URINE UROBILINOGEN 0.2-1.0 mg/dL (0.2-1.0)
[2017-12-08] MEDS ORDERED: Piperacillin/Tazobact 3.375 gm Inj IVPB ONE (17:32)
[2017-12-08] MEDS ORDERED: Alum-Mag Hydrox-Simethicone Susp (30 mL) PO PRN (21:17)
[2017-12-08] MEDS ORDERED: Acetaminophen-Codeine 300/30 mg Tab PO PRN (21:17)
[2017-12-08] MEDS ORDERED: Magnesium Hydroxide Susp 30 ml UD PO PRN (21:17)
[2017-12-08] MEDS ORDERED: Silver Sulfadiazine 1% Cream (20 gm) TOP SCH (21:30)
[2017-12-08] MEDS ORDERED: Sodium Chloride 0.9% 1,000 ML IV SCH (21:45)
[2017-12-08] MEDS ORDERED: Insulin Detemir 100 Units/ml Inj SC SCH (22:00)
--- NOTE | 2017-12-08 22:23 | CP.PCM.HP ---
History of Present Illness - History of Present Illness History of Present Illness: 82 year old female with a past medical history significant for COPD on home oxygen, essential hypertension, Type 2 diabetes mellitus controlled with insulin , history of CHF, anxiety, depression, recently discharged approximately 3 weeks ago for NSTEMI, CHF, acute on chronic respiratory failure, +ESBL UTI presented to the ER, after being sent from [facility] for low blood pressure. Was again admitted on 11/24/2016 to the hospitalist service for UTI, hypotension, and sepsis. Was found to have sepsis secondary to ESBL + E. coli. The patient was again sent from acute rehab secondary to fever and lethargy. Upon arrival the patient was found to be tachycardic and hypotensive around 95/50. She was given 2 liters of normal saline in the ED. She recieved Vancomycin and Zosyn. She is still hypotensive around 95/50 after 2 liters, however. She is saturating well on nasal cannula at this time. She is to be admitted for close hemodynamic monitoring and further workup and management of nosocomial pneumonia. Patient is DNR/DNI . Present on Admission - Present on Admission Any Indicators Present on Admission: No Review of Systems - Review of Systems Review of Systems: A 12 point review of systems was conducted with family and was negative other than what was mentioned in HPI. Past Patient History - Infectious Disease Hx of Infectious Diseases: None - Tetanus Immunizations Tetanus Immunization: Unknown - Past Medical History & Family History Past Medical History?: Yes - Past Social History Smoking Status: Former Smoker - CARDIAC Hx Congestive Heart Failure: Yes Hx Hypercholesterolemia: Yes Hx Hypertension: Yes - PULMONARY Hx Asthma: Yes Hx Chronic Obstructive Pulmonary Disease (COPD): Yes Hx Emphysema: Yes Hx Pneumonia: Yes - NEUROLOGICAL Hx Seizures: No - HEENT Hx HEENT Problems: No - RENAL Hx Chronic Kidney Disease: No - ENDOCRINE/METABOLIC Hx Hypothyroidism: Yes - HEMATOLOGICAL/ONCOLOGICAL Hx Anemia: Yes Hx Human Immunodeficiency Virus (HIV): No - INTEGUMENTARY Hx Dermatological Problems: No - MUSCULOSKELETAL/RHEUMATOLOGICAL Hx Arthritis: Yes Hx Rheumatoid Arthritis: Yes - GASTROINTESTINAL Hx Gastritis: Yes - GENITOURINARY/GYNECOLOGICAL Hx Genitourinary Disorders: Yes - PSYCHIATRIC Hx Anxiety: Yes Hx Depression: Yes - SURGICAL HISTORY Hx Appendectomy: Yes - ANESTHESIA Hx Anesthesia: Yes Hx Anesthesia Reactions: No Hx Malignant Hyperthermia: No Meds Allergies/Adverse Reactions: Allergies Allergy/AdvReac Type Severity Reaction Status Date / Time No Known Allergies Allergy Verified 11/06/17 16:50 Physical Exam - Additional Findings Additional findings: Physical exam: Constitutional- awak, cooperative, but lethargic Head- NCAT, PERRL Eye- PERRL, EOMI ENT- normal exam, MMM. Neck- normal inspection, supple, no JVD Respiratory- no wheezing, rales bilaterally, scattered rhonchi. Cardiovascular- RRR, +S1, +S2 no MRG GI/Abdominal- normal bowel sounds, soft, no mass, no hsm Skin- warm, dry Extremities Exam- normal capillary refill, normal inspection Neurological Exam- alert, awake, oriented Psych- normal mood, normal affect Results - Vital Signs Recent Vital Signs: Last Vital Signs Temp 99.0 F 12/08/17 16:05 Pulse 95 H 12/08/17 16:05 Resp 18 12/08/17 16:05 BP 102/59 L 12/08/17 16:05 Pulse Ox 92 L 12/08/17 16:37 - Labs Result Diagrams: 12/08/17 14:30 12/08/17 14:30 Labs: Laboratory Results - last 24 hr 12/08/17 12/08/17 12/08/17 14:08 14:16 14:30 WBC 21.3 H D RBC 3.77 L Hgb 11.5 L D Hct 35.1 MCV 93.2 MCH 30.7 MCHC 32.9 L RDW 17.3 H Plt Count 258 D MPV 7.5 Neut % (Auto) 87.4 H Lymph % (Auto) 7.[address] % (Auto) 4.2 Eos % (Auto) 0.1 Baso % (Auto) 0.4 Neut # 18.6 H Lymph # 1.7 [facility] # 0.9 H Eos # 0.0 Baso # 0.1 Neutrophils % (Manual) 87 H Band Neutrophils % 7 H Lymphocytes % (Manual) 4 L Monocytes % (Manual) 2 Smudge Cells Present Platelet Estimate Normal Hypochromasia (manual) Slight Anisocytosis (manual) Slight Ovalocytes Slight pCO2 pO2 56 H HCO3 ABG pH ABG Total CO2 ABG O2 Saturation ABG O2 Content ABG Base Excess ABG Hemoglobin ABG Carboxyhemoglobin POC ABG HHb (Measured) ABG Methemoglobin ABG O2 Capacity Roger Test VBG pH 7.41 VBG pCO2 80 H* VBG HCO3 41.7 VBG Total CO2 53.2 H VBG O2 Sat (Calc) 92.8 H VBG Base Excess 21.8 H VBG Potassium 4.0 A-a O2 Difference Hgb O2 Saturation Sodium 136.0 Chloride 94.0 L Glucose 52 L Lactate 2.8 H Liter Flow Vent Mode FiO2 21.0 Blood Gas Comments Ra21 Crit Value Called To Dr. mikki little m.d. Crit Value Called By Nadia Crit Value Read Back Y Blood Gas Notified Time 1446 Potassium Carbon Dioxide Anion Gap BUN Creatinine Est GFR ( Amer) Est GFR (Non-Af Amer) POC Glucose (mg/dL) 53 L Random Glucose Calcium Total Bilirubin AST ALT Alkaline Phosphatase Troponin I Total Protein Albumin Globulin Albumin/Globulin Ratio Venous Blood Potassium 4.0 Urine Color Urine Clarity Urine pH Ur Specific [place] Urine Protein Urine Glucose (UA) Urine Ketones Urine Blood Urine Nitrate Urine Bilirubin Urine Urobilinogen Ur Leukocyte Esterase Urine RBC (Auto) Urine Microscopic WBC Urine Bacteria Influenza Typ A,B (EIA) 12/08/17 12/08/17 12/08/17 14:30 14:30 14:48 WBC RBC Hgb Hct MCV MCH MCHC RDW Plt Count MPV Neut % (Auto) Lymph % (Auto) [facility] % (Auto) Eos % (Auto) Baso % (Auto) Neut # Lymph # [facility] # Eos # Baso # Neutrophils % (Manual) Band Neutrophils % Lymphocytes % (Manual) Monocytes % (Manual) Smudge Cells Platelet Estimate Hypochromasia (manual) Anisocytosis (manual) Ovalocytes pCO2 64 H pO2 111 H HCO3 41.3 H* ABG pH 7.48 H ABG Total CO2 49.7 H ABG O2 Saturation 99.4 H ABG O2 Content 14.7 L ABG Base Excess 21.0 H ABG Hemoglobin 10.9 L ABG Carboxyhemoglobin 1.4 POC ABG HHb (Measured) 0.6 ABG Methemoglobin 2.9 ABG O2 Capacity 14.8 L Roger Test Yes VBG pH VBG pCO2 VBG HCO3 VBG Total CO2 VBG O2 Sat (Calc) VBG Base Excess VBG Potassium A-a O2 Difference 66.0 Hgb O2 Saturation 95.0 Sodium 137 Chloride 90 L Glucose Lactate Liter Flow 4 Vent Mode Nc FiO2 36.0 Blood Gas Comments Nc 4 lpm Crit Value Called To Dr anabel lemus Crit Value Called By Nadia Crit Value Read Back Y Blood Gas Notified Time 1458 Potassium 4.3 Carbon Dioxide 41 H* D Anion Gap 10 BUN 54 H Creatinine 1.0 Est GFR ( Amer) > 60 Est GFR (Non-Af Amer) 53 POC Glucose (mg/dL) Random Glucose 48 L Calcium 10.9 H Total Bilirubin 0.7 AST 23 ALT 32 Alkaline Phosphatase 99 Troponin I 0.1260 H* Total Protein 5.9 L Albumin 3.1 L Globulin 2.8 Albumin/Globulin Ratio 1.1 Venous Blood Potassium Urine Color Urine Clarity Urine pH Ur Specific [place] Urine Protein Urine Glucose (UA) Urine Ketones Urine Blood Urine Nitrate Urine Bilirubin Urine Urobilinogen Ur Leukocyte Esterase Urine RBC (Auto) Urine Microscopic WBC Urine Bacteria Influenza Typ A,B (EIA) Negative for flu a/b 12/08/17 12/08/17 14:58 16:20 WBC RBC Hgb Hct MCV MCH MCHC RDW Plt Count MPV Neut % (Auto) Lymph % (Auto) [facility] % (Auto) Eos % (Auto) Baso % (Auto) Neut # Lymph # [facility] [place] [facility] # Eos # Baso # Neutrophils % (Manual) Band Neutrophils % Lymphocytes % (Manual) Monocytes % (Manual) Smudge Cells Platelet Estimate Hypochromasia (manual) Anisocytosis (manual) Ovalocytes pCO2 pO2 HCO3 ABG pH ABG Total CO2 ABG O2 Saturation ABG O2 Content ABG Base Excess ABG Hemoglobin ABG Carboxyhemoglobin POC ABG HHb (Measured) ABG Methemoglobin ABG O2 Capacity Roger Test VBG pH VBG pCO2 VBG HCO3 VBG Total CO2 VBG O2 Sat (Calc) VBG Base Excess VBG Potassium A-a O2 Difference Hgb O2 Saturation Sodium Chloride Glucose Lactate Liter Flow Vent Mode FiO2 Blood Gas Comments Crit Value Called To Crit Value Called By Crit Value Read Back Blood Gas Notified Time Potassium Carbon Dioxide Anion Gap BUN Creatinine Est GFR ( Amer) Est GFR (Non-Af Amer) POC Glucose (mg/dL) 207 H Random Glucose Calcium Total Bilirubin AST ALT Alkaline Phosphatase Troponin I Total Protein Albumin Globulin Albumin/Globulin Ratio Venous Blood Potassium Urine Color Yellow Urine Clarity Slighty-cloudy Urine pH 8.0 Ur Specific [place] 1.009 Urine Protein Negative Urine Glucose (UA) Neg Urine Ketones Negative Urine Blood Negative Urine Nitrate Negative Urine Bilirubin Negative Urine Urobilinogen 0.2-1.0 Ur Leukocyte Esterase Trace Urine RBC (Auto) 1 Urine Microscopic WBC 11 H Urine Bacteria Rare Influenza Typ A,B (EIA) Assessment & Plan - Assessment and Plan (Free Text) Plan: 1. Sepsis secondary to Nosocomial left upper lobe pneumonia Pt was hypotensive on admission, with leukocytosis, tachycardia Vancomycin 1 gram IVPB daily Rocephin 1 gram IVPB daily Blood CX Sputum CX Gentle fluids to support BP- caution due to combined CHF 2. Chronic CHF, systolic and diastolic dysfunction, with minimally elevated troponin ECHO done last year showed EF 35%. Repeat Echo on previous admission showed normal EF Hold Lasix, gentle hydration for now no BB due to COPD restart Verapamil and ARB once BP better Cycle troponins 3. Chronic Respiratory Failure, on nasal cannula, no hypercapnia on this admission sec to COPD exacerbation and CHF Continue Singulair Xopenex 4. 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 DM type II Accucheck with coverage Holding levemir for now due to npo status 6. Anxiety/ depression on trazodone and temazepam at home 7.DVT prophylaxis Lovenox
[2017-12-08] MEDS: Sodium Chloride 0.9% 1,000 ML IV SCH (23:09)
[2017-12-08] MEDS: Insulin Regular 100 units/ml SC SCH (23:51)
[2017-12-09] MEDS: Levalbuterol 1.25 MG/3 ML Inhal Soln UD INH SCH ×6 (02:31→19:13)
[2017-12-09] MEDS: Insulin Regular 100 units/ml SC SCH ×4 (06:44→22:00)
[2017-12-09] MEDS ORDERED: GlipiZIDE 5 mg SR Tab PO SCH (08:00)
[2017-12-09] MEDS ORDERED: Verapamil 240 mg ER Tab PO SCH (09:00)
[2017-12-09] MEDS ORDERED: MENTHOL TD SCH (09:00)
[2017-12-09] MEDS ORDERED: IRBESARTAN 150 MG PO SCH (09:00)
[2017-12-09] MEDS: Lidocaine 5% Patch TD SCH (10:35)
[2017-12-09] MEDS: Pantoprazole 40 mg EC Tab PO SCH (10:36)
[2017-12-09] MEDS: Multivitamin With Minerals Tab PO SCH (10:37)
--- NOTE | 2017-12-09 12:40 | CP.PCM.PN ---
Subjective - Date & Time of Evaluation Date of Evaluation: 12/09/17 Time of Evaluation: 12:00 - Subjective Subjective: No fever at present - had low grade fever on admission no SOB sl cough denies CP no abd pain accdg to - did not sleep last night- requestion Trazodone be ordered had breakfast this am - Néstor at bedside - surrogate decision maker - Pt DNR/DNI Objective - Vital Signs/Intake and Output Vital Signs (last 24 hours): Temp Pulse Resp BP Pulse Ox 97.3 F L 105 H 18 96/56 L 94 L 12/09/17 12:00 12/09/17 12:00 12/09/17 12:00 12/09/17 12:00 12/09/17 12:00 Intake and Output: 12/09/17 12/09/17 06:59 18:59 Intake Total 120 Output Total 700 Balance -580 - Medications Medications: Current Medications Acetaminophen (Tylenol 325mg Tab) 650 mg PO Q4H PRN PRN Reason: Pain, Mild (1-3) Acetaminophen (Tylenol 325mg Tab) 650 mg PO Q4H PRN PRN Reason: Temp >100 Acetaminophen/Codeine Phosphate (Tylenol/Codeine 300 Mg/30 Mg) 1 tab PO Q8 PRN PRN Reason: Pain, moderate (4-7) Last Admin: 12/09/17 04:40 Dose: 1 tab Al Hydrox/Mg Hydrox/Simethicone (Maalox Plus 30 Ml) 30 ml PO Q4H PRN PRN Reason: heartburn/indigestion Aspirin (Ecotrin) 81 mg PO DAILY [facility] Last Admin: 12/09/17 10:34 Dose: 81 mg Calcium Carbonate (Oscal) 500 mg PO BID [facility] Last Admin: 12/09/17 10:36 Dose: 500 mg Doxazosin Mesylate (Cardura) 8 mg PO DAILY [facility] Last Admin: 12/09/17 10:34 Dose: 8 mg Enoxaparin Sodium (Lovenox) 40 mg SC QPM [facility] PRN Reason: Protocol Home Med (Menthol [Icy Hot]) 1 patch TD DAILY [facility] Vancomycin HCl 1 gm/ Sodium (Chloride) 250 mls @ 166.667 mls/hr IVPB DAILY [facility] PRN Reason: Protocol Last Admin: 12/08/17 18:10 Dose: 166.667 mls/hr Ceftriaxone Sodium 1 gm/ (Sodium Chloride) 50 mls @ 50 mls/hr IVPB DAILY [facility] PRN Reason: Protocol Last Admin: 12/09/17 10:31 Dose: 50 mls/hr Sodium Chloride (Sodium Chloride 0.9%) 1,000 mls @ 60 mls/hr IV .[id number] [facility] Stop: 12/09/17 21:35 Last Admin: 12/08/17 23:09 Dose: 60 mls/hr Insulin Human Regular (Humulin R) 0 units SC ACCU-CHECK [facility] PRN Reason: Protocol Last Admin: 12/09/17 06:44 Dose: Not Given Levalbuterol HCl (Xopenex) 1.25 mg INH RQ4 [facility] Last Admin: 12/09/17 11:17 Dose: 1.25 mg Lidocaine (Lidoderm) 1 ea TD DAILY [facility] Last Admin: 12/09/17 10:35 Dose: Not Given Magnesium Hydroxide (Milk Of Magnesia) 30 ml PO DAILY PRN PRN Reason: Constipation Montelukast Sodium (Singulair) 10 mg PO HS [facility] Last Admin: 12/08/17 23:59 Dose: 10 mg Multivitamins/Minerals (Therapeutic-M Tab) 1 tab PO DAILY [facility] Last Admin: 12/09/17 10:37 Dose: 1 tab Pantoprazole Sodium (Protonix Ec Tab) 40 mg PO DAILY [facility] Last Admin: 12/09/17 10:36 Dose: 40 mg Prednisone (Prednisone Tab) 10 mg PO DAILY [facility] Last Admin: 12/09/17 10:37 Dose: 10 mg Silver Sulfadiazine (Silvadene 1% 20 Gm) 1 ea TOP QSHIFT [facility] Tramadol HCl (Ultram) 50 mg PO Q8H PRN PRN Reason: Pain, moderate (4-7) - Labs Labs: 12/08/17 14:30 12/08/17 14:30 - Constitutional Appears: No Acute Distress, Chronically Ill - Head Exam Head Exam: NORMAL INSPECTION, NORMOCEPHALIC - Eye Exam Eye Exam: EOMI, Normal appearance Pupil Exam: NORMAL ACCOMODATION - ENT Exam ENT Exam: Mucous Membranes Dry, Normal External Ear Exam - Neck Exam Neck Exam: Full ROM. absent: Meningismus - Respiratory Exam Respiratory Exam: Rales, Rhonchi. absent: Wheezes, Respiratory Distress - Cardiovascular Exam Cardiovascular Exam: REGULAR RHYTHM, +S1, +S2 - GI/Abdominal Exam GI & Abdominal Exam: Distended, Soft, Normal Bowel Sounds. absent: Tenderness - Extremities Exam Extremities Exam: Normal Capillary Refill. absent: Calf Tenderness, Joint Swelling - Neurological Exam Neurological Exam: Alert, Awake Neuro motor strength exam: Left Upper Extremity: 4, Right Upper Extremity: 4, Left Lower Extremity: 4, Right Lower Extremity: 4 Additional comments: oriented to person and place - Psychiatric Exam Psychiatric exam: Flat Affect - Skin Skin Exam: Dry, Pallor, Warm Assessment and Plan - Assessment and Plan (Free Text) Assessment: 1. Sepsis secondary to Nosocomial left upper lobe pneumonia Pt was hypotensive on admission, with leukocytosis, tachycardia Vancomycin 1 gram IVPB daily Rocephin 1 gram IVPB daily Pt may need a broader spectrum abx than Rocephin as pt has been in [place] - will discuss with Dr Mackay Blood CX Sputum CX Gentle fluids to support BP- caution due to combined CHF Influenza negative Pulm consult : DR Oscar ( pt's Pulmonary MD) 2. Chronic CHF, systolic and diastolic dysfunction, with minimally elevated troponin ECHO done last year showed EF 35%. Repeat Echo on previous admission showed normal EF Lasix held due to hypotension, will restart low dose PO Lasix when BP better no BB due to COPD restart Verapamil hold ARB for now due to low BP 3. Troponin Elevation likely due to demand ischemia due to Sepsis Troponin now normal had elevated Trop on previous admission cont ASA LDL normal on previous admission no BB sec to COPD 4. UTI Urine c/s : Gram neg rods previous cultures showed ESBL E coli- may need Meropenem for both UTI and PNA 5. Chronic Respiratory Failure, on Home Oxygen sec to COPD and CHF Continue Singulair Xopenex 6. 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 DM type II Accucheck with coverage g/c Glucotrol low dose Levemir 8. Anxiety/ depression on trazodone q hs - requesting to give since pt cannot sleep without it - wioll restart low dose DVT prophylaxis Lovenox
[2017-12-09] MEDS ORDERED: Sodium Chloride 3% for Inhalation 4 ML VIAL.NEB IH PRN (13:15)
[2017-12-09 13:24] LABS: BLOOD UREA NITROGEN 48 mg/dl (7-17); CALCIUM 9.7 mg/dL (8.4-10.2); GFR AFRICAN-AMERICAN > 60; GFR NON-AFRICAN AMERICAN > 60
[2017-12-09 13:42] LABS: MEAN CELL VOLUME 94.2 fl (81.0-99.0); MEAN CORPUSCULAR HEMOGLOBIN 30.5 pg (27.0-31.0); MEAN CORPUSCULAR HGB CONC 32.4 g/dL (33.0-37.0); RBC 3.05 Mil/uL (3.80-5.20); RED CELL DISTRIBUTION WIDTH 17.4 % (11.5-14.5); WHITE BLOOD COUNT 12.3 K/uL (4.8-10.8)
[2017-12-09 14:06] LABS: HEMOGLOBIN 9.3 g/dL (12.0-16.0)
--- NOTE | 2017-12-09 14:20 | CP.PCM.CON ---
History of Present Illness - History of Present Illness History of Present Illness: pt from [facility] for evaluation of fever and low bp. pt discharged last week for uti. admitted for possible sepsis UTI and or pneumonia easily arousable in NAD denies chest pain - Medical History PMH: Anemia, Anxiety, Arthritis, Asthma, CAD, CHF, COPD, Depression, Diabetes, Emphysema, Gastritis, HTN, Hypercholesterolemia, Hypothyroidism, Pneumonia, Rheumatoid Arthritis Denies: HIV, Chronic Kidney Disease, Seizures Review of Systems - Review of Systems All systems: reviewed and no additional remarkable complaints except - Constitutional Constitutional: As Per HPI - EENT Eyes: absent: As Per HPI, Blind Spots, Blurred Vision, Change in Vision, Decreased Night Vision, Diplopia, Discharge, Dry Eye, Exophthalmos, Floaters, Irritation, Itchy Eyes, Loss of Peripheral Vision, Pain, Photophobia, Requires Corrective Lenses, Sees Flashes, Spots in Vision, Tunnel Vision, Other Visual Disturbances, Loss of Vision, Other Ears: absent: As Per HPI, Decreased Hearing, Ear Discharge, Ear Pain, Tinnitus, Abnormal Hearing, Disequilibrium, Dizziness, Other Nose/Mouth/Throat: absent: As Per HPI, Epistaxis, Nasal Congestion, Nasal Discharge, Nasal Obstruction, Nasal Trauma, Nose Pain, Post Nasal Drip, Sinus Pain, Sinus Pressure, Bleeding Gums, Change in Voice, Dental Pain, Dry Mouth, Dysphagia, Halitosis, Hoarsness, Lip Swelling, Mouth Lesions, Mouth Pain, Odynophagia, Sore Throat, Throat Swelling, Tongue Swelling, Facial Pain, Neck Pain, Neck Mass, Other - Breasts Breasts: absent: As Per HPI, Change in Shape, Mass, Pain, Nipple Discharge, Nipple Inversion, Skin Changes, Swelling, Other - Cardiovascular Cardiovascular: absent: As Per HPI, Acrocyanosis, Chest Pain, Chest Pain at Rest , Chest Pain with Activity, Claudication, Diaphoresis, Dyspnea, Dyspnea on Exertion, Edema, Irregular Heart Rhythm, Pain Radiating to Arm/Neck/Jaw, Leg Edema, Leg Ulcers, Lightheadedness, Orthopnea, Palpitations, Paroxysmal Nocturnal Dyspnea, Pedal Edema, Radiating Pain, Rapid Heart Rate, Slow Heart Rate, Syncope, Other - Respiratory Respiratory: absent: As Per HPI, Cough, Dyspnea, Hemoptysis, Dyspnea on Exertion , Wheezing, Snoring, Stridor, Pain on Inspiration, Chest Congestion, Excessive Mucous Production, Change in Mucous Color, Pain with Coughing, Other - Gastrointestinal Gastrointestinal: absent: As Per HPI, Abdominal Pain, Belching, Bloating, Change in Bowel Habits, Change in Stool Character, Coffee Ground Emesis, Constipation, Cramping, Diarrhea, Dyspepsia, Dysphagia, Early Satiety, Excessive Flatus, Fecal Incontinence, Heartburn, Hematemesis, Hematochezia, Loose Stools, Melena, Nausea, Odynophagia, Temesmus, Vomiting, Other - Genitourinary Genitourinary: As Per HPI - Reproductive: Female Reproductive:Female: absent: As Per HPI, Amenorrhea, Amenorrhea/ Control, Currently Menstual, Cycle <21 Days, Cycle >35 Days, Cycle Variable, Menses 1-7 Days, Menses >/= 8 Days, Menses Variable, Cycle > 4 Weeks Between, No Menses for 6 Months, Heavy Menses, Light Menses, Normal Menses, Spotting Between Cycles , S/P Hysterectomy, Menopausal, Post Menopausal, Premenarche, Abnormal Vaginal Bleeding, Dysmenorrhea, Dyspareunia, Genital Lesions, Genital Pruritis, Pelvic Pain, Prolapse Symptoms, Sexual Dysfunction, Vaginal Discharge, Vaginal Dryness , Vaginal Odor, Vaginal Pruritis, Other - Menstruation Menstruation: absent: As Per HPI, Amenorrhea, Amenorrhea/ Control, Currently Menstual, Cycle <21 Days, Cycle >35 Days, Cycle Variable, Menses 1-7 Days, Menses >/= 8 Days, Menses Variable, Cycle > 4 Weeks Between, No Menses for 6 Months, Heavy Menses, Light Menses, Normal Menses, Spotting Between Cycles , S/P Hysterectomy, Menopausal, Post Menopausal, Premenarche, Abnormal Vaginal Bleeding, Dysmenorrhea, Other - Musculoskeletal Musculoskeletal: absent: As Per HPI, Abnormal Gait, Arthralgias, Atrophy, Back Pain, Deformity, Joint Swelling, Limited Range of Motion, Loss of Height, Muscle Cramps, Muscle Weakness, Myalgias, Neck Pain, Numbness, Radiating Pain into Limb, Stiffness, Tingling, Other - Integumentary Integumentary: absent: As Per HPI, Acne, Alopecia, Bleeding Lesions, Change in Hair, Change in Nails, Change in Pigmentation, Changing Lesions, Dry Skin, Erythema, Furuncle, Hirsutism, Lesions, New Lesions, Non-Healing Lesions, Photosensitivity, Pruritus, Rash, Skin Pain, Skin Ulcer, Sores, Striae, Swelling , Unusual Bruising, Wounds, Jaundice, Other - Neurological Neurological: absent: As Per HPI, Abnormal Gait, Abnormal Hearing, Abnormal Movements, Abnormal Speech, Behavioral Changes, Burning Sensations, Confusion, Convulsions, Disequilibrium, Dizziness, Numbness, Focal Weakness, Frequent Falls , Headaches, Lack of Coordination, Loss of Vision, Memory Loss, Paresthesias, Radicular Pain, Restless Legs, Sensory Deficit, Syncope, Tingling, Tremor, Vertigo, Weakness, Other Visual Disturbances, Other - Psychiatric Psychiatric: absent: As Per HPI, Abnormal Sleep Pattern, Anhedonia, Anxiety, Auditory Hallucinations, Behavioral Changes, Change in Appetite, Change in Libido, Confusion, Depression, Difficulty Concentrating, Hallucinations, Homicidal Ideation, Hopelessness, Irritability, Memory Loss, Mood Swings, Panic Attacks, Paranoia, Suicidal Ideation, Visual Hallucinations, Tactile Hallucinations, Other - Endocrine Endocrine: absent: As Per HPI, Change in Body Appearance, Change in Libido, Cold Intolorance, Deepening of Voice, Excessive Sweating, Fatigue, Flushing, Heat Intolorance, Increase in Ring/Shoe/Hat Size, Palpitations, Polydipsia, Polyphagia, Polyuria, Other - Hematologic/Lymphatic Hematologic: absent: As Per HPI, Easy Bleeding, Easy Bruising, Lymphadenopathy, Other Past Patient History - Infectious Disease Hx of Infectious Diseases: None - Tetanus Immunizations Tetanus Immunization: Unknown - Past Medical History & Family History Past Medical History?: Yes - Past Social History Smoking Status: Never Smoked - CARDIAC Hx Congestive Heart Failure: Yes Hx Hypercholesterolemia: Yes Hx Hypertension: Yes - PULMONARY Hx Asthma: Yes Hx Chronic Obstructive Pulmonary Disease (COPD): Yes Hx Emphysema: Yes Hx Pneumonia: Yes - NEUROLOGICAL Hx Seizures: No - HEENT Hx HEENT Problems: No - RENAL Hx Chronic Kidney Disease: No - ENDOCRINE/METABOLIC Hx Hypothyroidism: Yes - HEMATOLOGICAL/ONCOLOGICAL Hx AIDS: No Hx Anemia: Yes Hx Human Immunodeficiency Virus (HIV): No - INTEGUMENTARY Hx Dermatological Problems: No - MUSCULOSKELETAL/RHEUMATOLOGICAL Hx Arthritis: Yes Hx Falls: No Hx Rheumatoid Arthritis: Yes - GASTROINTESTINAL Hx Gastritis: Yes - GENITOURINARY/GYNECOLOGICAL Hx Genitourinary Disorders: Yes - PSYCHIATRIC Hx Anxiety: Yes Hx Depression: Yes Hx Substance Use: No - SURGICAL HISTORY Hx Appendectomy: Yes - ANESTHESIA Hx Anesthesia: Yes Hx Anesthesia Reactions: No Hx Malignant Hyperthermia: No Meds Allergies/Adverse Reactions: Allergies Allergy/AdvReac Type Severity Reaction Status Date / Time No Known Allergies Allergy Verified 11/06/17 16:50 - Medications Medications: Current Medications Acetaminophen (Tylenol 325mg Tab) 650 mg PO Q4H PRN PRN Reason: Pain, Mild (1-3) Acetaminophen (Tylenol 325mg Tab) 650 mg PO Q4H PRN PRN Reason: Temp >100 Acetaminophen/Codeine Phosphate (Tylenol/Codeine 300 Mg/30 Mg) 1 tab PO Q8 PRN PRN Reason: Pain, moderate (4-7) Last Admin: 12/09/17 04:40 Dose: 1 tab Al Hydrox/Mg Hydrox/Simethicone (Maalox Plus 30 Ml) 30 ml PO Q4H PRN PRN Reason: heartburn/indigestion Aspirin (Ecotrin) 81 mg PO DAILY [facility] Last Admin: 12/09/17 10:34 Dose: 81 mg Calcium Carbonate (Oscal) 500 mg PO BID [facility] Last Admin: 12/09/17 10:36 Dose: 500 mg Enoxaparin Sodium (Lovenox) 40 mg SC QPM [facility] PRN Reason: Protocol Home Med (Menthol [Icy Hot]) 1 patch TD DAILY [facility] Vancomycin HCl 1 gm/ Sodium (Chloride) 250 mls @ 166.667 mls/hr IVPB DAILY [facility] PRN Reason: Protocol Last Admin: 12/09/17 13:27 Dose: 166.667 mls/hr Ceftriaxone Sodium 1 gm/ (Sodium Chloride) 50 mls @ 50 mls/hr IVPB DAILY [facility] PRN Reason: Protocol Last Admin: 12/09/17 10:31 Dose: 50 mls/hr Sodium Chloride (Sodium Chloride 0.9%) 1,000 mls @ 60 mls/hr IV .[id number] [facility] Stop: 12/09/17 21:35 Last Admin: 12/08/17 23:09 Dose: 60 mls/hr Insulin Human Regular (Humulin R) 0 units SC ACCU-CHECK [facility] PRN Reason: Protocol Last Admin: 12/09/17 13:26 Dose: 4 units Levalbuterol HCl (Xopenex) 1.25 mg INH RQ4 [facility] Last Admin: 12/09/17 11:17 Dose: 1.25 mg Lidocaine (Lidoderm) 1 ea TD DAILY [facility] Last Admin: 12/09/17 10:35 Dose: Not Given Magnesium Hydroxide (Milk Of Magnesia) 30 ml PO DAILY PRN PRN Reason: Constipation Montelukast Sodium (Singulair) 10 mg PO HS [facility] Last Admin: 12/08/17 23:59 Dose: 10 mg Multivitamins/Minerals (Therapeutic-M Tab) 1 tab PO DAILY [facility] Last Admin: 12/09/17 10:37 Dose: 1 tab Pantoprazole Sodium (Protonix Ec Tab) 40 mg PO DAILY [facility] Last Admin: 12/09/17 10:36 Dose: 40 mg Prednisone (Prednisone Tab) 10 mg PO DAILY [facility] Last Admin: 12/09/17 10:37 Dose: 10 mg Silver Sulfadiazine (Silvadene 1% 20 Gm) 1 ea TOP QSHIFT [facility] Tramadol HCl (Ultram) 50 mg PO Q8H PRN PRN Reason: Pain, moderate (4-7) Trazodone HCl (Desyrel) 50 mg PO HS [facility] Verapamil HCl (Calan Sr Tab) 120 mg PO DAILY [facility] Physical Exam - Constitutional Appears: Confused, Cachectic, Chronically Ill - Head Exam Head Exam: ATRAUMATIC, NORMAL INSPECTION, NORMOCEPHALIC - Eye Exam Eye Exam: PERRL. absent: Scleral icterus - ENT Exam ENT Exam: Mucous Membranes Dry, Normal External Ear Exam - Neck Exam Neck exam: Negative for: Lymphadenopathy - Respiratory Exam Respiratory Exam: Decreased Breath Sounds, Rhonchi - Cardiovascular Exam Cardiovascular Exam: REGULAR RHYTHM, +S1, +S2 - GI/Abdominal Exam GI & Abdominal Exam: Diminished Bowel Sounds, Soft. absent: Tenderness - Rectal Exam Rectal Exam: Deferred - Exam Exam: NORMAL INSPECTION - Extremities Exam Extremities exam: Positive for: pedal pulses present. Negative for: calf tenderness, pedal edema, tenderness - Back Exam Back exam: absent: CVA tenderness (L), CVA tenderness (R) - Neurological Exam Neurological exam: Alert, CN II-XII Intact, Oriented x3, Reflexes Normal - Psychiatric Exam Psychiatric exam: Depressed - Skin Skin Exam: Dry, Intact Results - Vital Signs Recent Vital Signs: Last Vital Signs Temp 97.3 F L 12/09/17 12:00 Pulse 105 H 12/09/17 12:00 Resp 18 12/09/17 12:00 BP 96/56 L 12/09/17 12:00 Pulse Ox 94 L 12/09/17 12:00 - Labs Result Diagrams: 12/09/17 12:56 12/09/17 12:56 Labs: Laboratory Results - last 24 hr 12/08/17 12/08/17 12/08/17 14:08 14:16 14:30 WBC 21.3 H D RBC 3.77 L Hgb 11.5 L D Hct 35.1 MCV 93.2 MCH 30.7 MCHC 32.9 L RDW 17.3 H Plt Count 258 D MPV 7.5 Neut % (Auto) 87.4 H Lymph % (Auto) 7.9 L Adams % (Auto) 4.2 Eos % (Auto) 0.1 Baso % (Auto) 0.4 Neut # 18.6 H Lymph # 1.7 Adams # 0.9 H Eos # 0.0 Baso # 0.1 Neutrophils % (Manual) 87 H Band Neutrophils % 7 H Lymphocytes % (Manual) 4 L Monocytes % (Manual) 2 Smudge Cells Present Platelet Estimate Normal Hypochromasia (manual) Slight Anisocytosis (manual) Slight Ovalocytes Slight pCO2 pO2 56 H HCO3 ABG pH ABG Total CO2 ABG O2 Saturation ABG O2 Content ABG Base Excess ABG Hemoglobin ABG Carboxyhemoglobin POC ABG HHb (Measured) ABG Methemoglobin ABG O2 Capacity Roger Test VBG pH 7.41 VBG pCO2 80 H* VBG HCO3 41.7 VBG Total CO2 53.2 H VBG O2 Sat (Calc) 92.8 H VBG Base Excess 21.8 H VBG Potassium 4.0 A-a O2 Difference Hgb O2 Saturation Sodium 136.0 Chloride 94.0 L Glucose 52 L Lactate 2.8 H Liter Flow Vent Mode FiO2 21.0 Blood Gas Comments Ra21 Crit Value Called To Dr. mikki little m.d. Crit Value Called By Nadia Naik Value Read Back Y Blood Gas Notified Time 1446 Potassium Carbon Dioxide Anion Gap BUN Creatinine Est GFR ( Amer) Est GFR (Non-Af Amer) POC Glucose (mg/dL) 53 L Random Glucose Calcium Total Bilirubin AST ALT Alkaline Phosphatase Troponin I Total Protein Albumin Globulin Albumin/Globulin Ratio Venous Blood Potassium 4.0 Urine Color Urine Clarity Urine pH Ur Specific Mclean Urine Protein Urine Glucose (UA) Urine Ketones Urine Blood Urine Nitrate Urine Bilirubin Urine Urobilinogen Ur Leukocyte Esterase Urine RBC (Auto) Urine Microscopic WBC Urine Bacteria Influenza Typ A,B (EIA) 12/08/17 12/08/17 12/08/17 14:30 14:30 14:48 WBC RBC Hgb Hct MCV MCH MCHC RDW Plt Count MPV Neut % (Auto) Lymph % (Auto) Adams % (Auto) Eos % (Auto) Baso % (Auto) Neut # Lymph # Adams # Eos # Baso # Neutrophils % (Manual) Band Neutrophils % Lymphocytes % (Manual) Monocytes % (Manual) Smudge Cells Platelet Estimate Hypochromasia (manual) Anisocytosis (manual) Ovalocytes pCO2 64 H pO2 111 H HCO3 41.3 H* ABG pH 7.48 H ABG Total CO2 49.7 H ABG O2 Saturation 99.4 H ABG O2 Content 14.7 L ABG Base Excess 21.0 H ABG Hemoglobin 10.9 L ABG Carboxyhemoglobin 1.4 POC ABG HHb (Measured) 0.6 ABG Methemoglobin 2.9 ABG O2 Capacity 14.8 L Roger Test Yes VBG pH VBG pCO2 VBG HCO3 VBG Total CO2 VBG O2 Sat (Calc) VBG Base Excess VBG Potassium A-a O2 Difference 66.0 Hgb O2 Saturation 95.0 Sodium 137 Chloride 90 L Glucose Lactate Liter Flow 4 Vent Mode Nc FiO2 36.0 Blood Gas Comments Nc 4 lpm Crit Value Called To Dr anabel lemus Crit Value Called By Nadia Crit Value Read Back Y Blood Gas Notified Time 1458 Potassium 4.3 Carbon Dioxide 41 H* D Anion Gap 10 BUN 54 H Creatinine 1.0 Est GFR ( Amer) > 60 Est GFR (Non-Af Amer) 53 POC Glucose (mg/dL) Random Glucose 48 L Calcium 10.9 H Total Bilirubin 0.7 AST 23 ALT 32 Alkaline Phosphatase 99 Troponin I 0.1260 H* Total Protein 5.9 L Albumin 3.1 L Globulin 2.8 Albumin/Globulin Ratio 1.1 Venous Blood Potassium Urine Color Urine Clarity Urine pH Ur Specific Mclean Urine Protein Urine Glucose (UA) Urine Ketones Urine Blood Urine Nitrate Urine Bilirubin Urine Urobilinogen Ur Leukocyte Esterase Urine RBC (Auto) Urine Microscopic WBC Urine Bacteria Influenza Typ A,B (EIA) Negative for flu a/b 12/08/17 12/08/17 12/08/17 14:58 16:20 23:02 WBC RBC Hgb Hct MCV MCH MCHC RDW Plt Count MPV Neut % (Auto) Lymph % (Auto) Adams % (Auto) Eos % (Auto) Baso % (Auto) Neut # Lymph # Adams # Eos # Baso # Neutrophils % (Manual) Band Neutrophils % Lymphocytes % (Manual) Monocytes % (Manual) Smudge Cells Platelet Estimate Hypochromasia (manual) Anisocytosis (manual) Ovalocytes pCO2 pO2 HCO3 ABG pH ABG Total CO2 ABG O2 Saturation ABG O2 Content ABG Base Excess ABG Hemoglobin ABG Carboxyhemoglobin POC ABG HHb (Measured) ABG Methemoglobin ABG O2 Capacity Roger Test VBG pH VBG pCO2 VBG HCO3 VBG Total CO2 VBG O2 Sat (Calc) VBG Base Excess VBG Potassium A-a O2 Difference Hgb O2 Saturation Sodium Chloride Glucose Lactate Liter Flow Vent Mode FiO2 Blood Gas Comments Crit Value Called To Crit Value Called By Crit Value Read Back Blood Gas Notified Time Potassium Carbon Dioxide Anion Gap BUN Creatinine Est GFR ( Amer) Est GFR (Non-Af Amer) POC Glucose (mg/dL) 207 H Random Glucose Calcium Total Bilirubin AST ALT Alkaline Phosphatase Troponin I 0.1070 Total Protein Albumin Globulin Albumin/Globulin Ratio Venous Blood Potassium Urine Color Yellow Urine Clarity Slighty-cloudy Urine pH 8.0 Ur Specific Mclean 1.009 Urine Protein Negative Urine Glucose (UA) Neg Urine Ketones Negative Urine Blood Negative Urine Nitrate Negative Urine Bilirubin Negative Urine Urobilinogen 0.2-1.0 Ur Leukocyte Esterase Trace Urine RBC (Auto) 1 Urine Microscopic WBC 11 H Urine Bacteria Rare Influenza Typ A,B (EIA) 12/08/17 12/09/17 12/09/17 23:44 05:50 10:59 WBC RBC Hgb Hct MCV MCH MCHC RDW Plt Count MPV Neut % (Auto) Lymph % (Auto) Adams % (Auto) Eos % (Auto) Baso % (Auto) Neut # Lymph # Adams # Eos # Baso # Neutrophils % (Manual) Band Neutrophils % Lymphocytes % (Manual) Monocytes % (Manual) Smudge Cells Platelet Estimate Hypochromasia (manual) Anisocytosis (manual) Ovalocytes pCO2 pO2 HCO3 ABG pH ABG Total CO2 ABG O2 Saturation ABG O2 Content ABG Base Excess ABG Hemoglobin ABG Carboxyhemoglobin POC ABG HHb (Measured) ABG Methemoglobin ABG O2 Capacity Roger Test VBG pH VBG pCO2 VBG HCO3 VBG Total CO2 VBG O2 Sat (Calc) VBG Base Excess VBG Potassium A-a O2 Difference Hgb O2 Saturation Sodium Chloride Glucose Lactate Liter Flow Vent Mode FiO2 Blood Gas Comments Crit Value Called To Crit Value Called By Crit Value Read Back Blood Gas Notified Time Potassium Carbon Dioxide Anion Gap BUN Creatinine Est GFR ( Amer) Est GFR (Non-Af Amer) POC Glucose (mg/dL) 115 H 127 H 279 H Random Glucose Calcium Total Bilirubin AST ALT Alkaline Phosphatase Troponin I Total Protein Albumin Globulin Albumin/Globulin Ratio Venous Blood Potassium Urine Color Urine Clarity Urine pH Ur Specific Mclean Urine Protein Urine Glucose (UA) Urine Ketones Urine Blood Urine Nitrate Urine Bilirubin Urine Urobilinogen Ur Leukocyte Esterase Urine RBC (Auto) Urine Microscopic WBC Urine Bacteria Influenza Typ A,B (EIA) 12/09/17 12/09/17 12:56 12:56 WBC 12.3 H RBC 3.05 L Hgb 9.3 L D Hct 28.8 L MCV 94.2 MCH 30.5 MCHC 32.4 L RDW 17.4 H Plt Count 176 MPV Neut % (Auto) Lymph % (Auto) Adams % (Auto) Eos % (Auto) Baso % (Auto) Neut # Lymph # Adams # Eos # Baso # Neutrophils % (Manual) Band Neutrophils % Lymphocytes % (Manual) Monocytes % (Manual) Smudge Cells Platelet Estimate Hypochromasia (manual) Anisocytosis (manual) Ovalocytes pCO2 pO2 HCO3 ABG pH ABG Total CO2 ABG O2 Saturation ABG O2 Content ABG Base Excess ABG Hemoglobin ABG Carboxyhemoglobin POC ABG HHb (Measured) ABG Methemoglobin ABG O2 Capacity Roger Test VBG pH VBG pCO2 VBG HCO3 VBG Total CO2 VBG O2 Sat (Calc) VBG Base Excess VBG Potassium A-a O2 Difference Hgb O2 Saturation Sodium 135 Chloride 90 L Glucose Lactate Liter Flow Vent Mode FiO2 Blood Gas Comments Crit Value Called To Crit Value Called By Crit Value Read Back Blood Gas Notified Time Potassium 4.2 Carbon Dioxide 41 H* Anion Gap 8 L BUN 48 H Creatinine 0.7 Est GFR ( Amer) > 60 Est GFR (Non-Af Amer) > 60 POC Glucose (mg/dL) Random Glucose 318 H Calcium 9.7 Total Bilirubin AST ALT Alkaline Phosphatase Troponin I Total Protein Albumin Globulin Albumin/Globulin Ratio Venous Blood Potassium Urine Color Urine Clarity Urine pH Ur Specific Mclean Urine Protein Urine Glucose (UA) Urine Ketones Urine Blood Urine Nitrate Urine Bilirubin Urine Urobilinogen Ur Leukocyte Esterase Urine RBC (Auto) Urine Microscopic WBC Urine Bacteria Influenza Typ A,B (EIA) Assessment & Plan (1) Pneumonia Status: Acute (2) Dehydration Status: Acute (3) Diabetes Status: Acute (4) ESBL (extended spectrum beta-lactamase) producing bacteria infection Status: Acute - Assessment and Plan (Free Text) Assessment: hx of esbl in urine on multiple occasions await cultures add merrem may need eval cont iv rx min 14 days
--- NOTE | 2017-12-09 14:50 | CT ---
PROCEDURE: CT Chest without contrast HISTORY: Pneumonia COMPARISON: December 08, 2017. Single-view chest. TECHNIQUE: Contiguous axial images were obtained through the chest without intravenous contrast enhancement. Sagittal and coronal reconstructions were performed. Radiation dose (DLP): 578.69 mGy-cm. This CT exam was performed using one or more of the following dose reduction techniques: Automated exposure control, adjustment of the mA and/or kV according to patient size, and/or use of iterative reconstruction technique. FINDINGS: LUNGS: Progressive consolidative changes primarily affecting left lower lobe with volume loss. Marked attenuation of the left lower lobe bronchus, the segmental bronchi are not visualized. Visualized lobar and segmental bronchi were seen on the CT scan of the abdomen pelvis 10/12/2017. This favors a more acute process such as mucous plugging, postobstructive atelectasis. MEDIASTINUM: Unremarkable thoracic aorta. No aneurysm. Normal sized heart. Main pulmonary artery unremarkable. No vascular congestion. Prominence of the left hilum is inseparable from collapsed left lower lobes. If adenopathy is suspected a repeat CT scan is recommended. Hyperinflation of the right lung consistent with volume loss/ atelectasis left lower lobe. Platelike atelectasis right lower lobe. PLEURA: No pleural fluid. No pneumothorax. BONES: No fracture. No destructive lesion. UPPER ABDOMEN: Cholelithiasis without CT evidence of acute cholecystitis. OTHER FINDINGS: None. IMPRESSION: Progressive consolidative changes/ atelectasis primarily affecting the left lower lobe, of the changes are acute occurring between between the chest radiograph 12/08/[address] scan. The findings suggest postobstructive atelectasis. Mucous plugging is the most likely etiology.
--- NOTE | 2017-12-09 15:02 | PQF GENQUE ---
Dr. Marroquin, Please specify type of pneumonia in the progress notes: if known Aspiration pneumonia Please document specific aspirate (food, liquids, etc.) Latty (please indicate specific cause) Please indicate if this is postprocedural Bacterial (specify organism) Bronchopneumonia (specify organism) Interstitual pneumonia Organizing pneumonia/BOOP Pneumonia with influenza, joão flu, or H1N1 flu RSV pneumonia Tuberculosis, pulmonary Viral pneumonia Other pneumonia (specify organism or type) Clinically unable to determine Unknown Note: Probable and suspected conditions can be coded as if they exist if still documented at the time of discharge. 2. Sputum culture grew . Please document the causal relationship to the pneumonia being treated. 3. Please specify the organism causing the pneumonia Note: CAP, HAP, and HCAP indicate where the pneumonia was acquired, not a specific type Attending: Sepsis secondary to Nosocomial left upper lobe pneumonia Pt was hypotensive on admission, with leukocytosis, tachycardia Vancomycin 1 gram IVPB daily Rocephin 1 gram IVPB daily ,Pt may need a broader spectrum abx than Rocephin as pt has been in [place] - will discuss with Dr Mackay Blood CX Sputum CX ,Gentle fluids to support BP- caution due to combined CHF , Influenza negative Pulm consult : DR Oscar ( pt's Pulmonary MD This form is a permanent part of the medical record Clarification of your documentation is requested to better reflect the severity of illness and intensity of treatment of your patient. Indicators present [] Specify: [] [] Specify: [] [] Specify: [] [] Specify: [] Location in the medical record that reflects the above clinical findings: [] Treatment Provided: [] PHYSICIAN'S RESPONSE Bacterial Pneumonia Based on your medical judgment of the clinical indicators outlined above please clarify the following: [] Practitioner response [] If unable to determine, please check the box, sign and date. Present On Admission (POA) Indicator: [] Present at the time of admission [] Not present at the time of admission [] Clinically Undetermined In responding to this query, please exercise your independent professional judgment. The fact that a question is asked does not imply that any particular answer is desired or expected. Thank you for your clarification on this documentation. If you have any questions please call. * Thank you, Nadia Nicolas RN ext. #[phone] MTDD
[2017-12-09] MEDS: Meropenem 500 MG in Sodium Chloride 0.9% 100 ML IVPB SCH (17:31)
[2017-12-09] MEDS: Sodium Chloride 0.9% 1,000 ML IV SCH (17:33)
[2017-12-09] MEDS: Enoxaparin 40 mg Syringe SC SCH (17:33)
[2017-12-09] MEDS: Acetylcysteine 10% 4 ML IH SCH (19:13)
[2017-12-10] MEDS: Meropenem 500 MG in Sodium Chloride 0.9% 100 ML IVPB SCH ×3 (00:26→17:04)
[2017-12-10] MEDS: Levalbuterol 1.25 MG/3 ML Inhal Soln UD INH SCH ×4 (00:40→12:13)
[2017-12-10] MEDS: Acetylcysteine 10% 4 ML IH SCH (07:59)
[2017-12-10 08:37] LABS: HEMOGLOBIN 8.8 g/dL (12.0-16.0); MEAN CORPUSCULAR HEMOGLOBIN 31.3 pg (27.0-31.0); MEAN CORPUSCULAR HGB CONC 33.3 g/dL (33.0-37.0); RBC 2.81 Mil/uL (3.80-5.20); RED CELL DISTRIBUTION WIDTH 17.4 % (11.5-14.5); WHITE BLOOD COUNT 10.1 K/uL (4.8-10.8)
[2017-12-10 08:49] LABS: BLOOD UREA NITROGEN 29 mg/dl (7-17); CALCIUM 10.8 mg/dL (8.4-10.2); GFR AFRICAN-AMERICAN > 60; GFR NON-AFRICAN AMERICAN > 60
[2017-12-10] MEDS ORDERED: Verapamil 120 mg ER Tab PO SCH (09:00)
[2017-12-10] MEDS: Pantoprazole 40 mg EC Tab PO SCH (09:51)
[2017-12-10] MEDS: Multivitamin With Minerals Tab PO SCH (10:09)
[2017-12-10] MEDS: Lidocaine 5% Patch TD SCH (10:10)
[2017-12-10] MEDS: Insulin Regular 100 units/ml SC SCH ×4 (10:10→22:01)
--- NOTE | 2017-12-10 11:20 | CP.PCM.PN ---
Subjective - Date & Time of Evaluation Date of Evaluation: 12/10/17 Time of Evaluation: 11:00 - Subjective Subjective: Pt has no fevr denies CP still with cough- dry SOB better CT of chest : LLL consolidation, post obstructive changes prob mucus plugging no abd pain no diarrhea Objective - Vital Signs/Intake and Output Vital Signs (last 24 hours): Temp Pulse Resp BP Pulse Ox 98.0 F 94 H 18 120/70 96 12/10/17 08:00 12/10/17 10:09 12/10/17 08:00 12/10/17 10:09 12/10/17 08:00 Intake and Output: 12/10/17 12/10/17 06:59 18:59 Intake Total 1816 Output Total 1300 Balance 516 - Medications Medications: Current Medications Acetaminophen (Tylenol 325mg Tab) 650 mg PO Q4H PRN PRN Reason: Pain, Mild (1-3) Acetaminophen (Tylenol 325mg Tab) 650 mg PO Q4H PRN PRN Reason: Temp >100 Acetaminophen/Codeine Phosphate (Tylenol/Codeine 300 Mg/30 Mg) 1 tab PO Q8 PRN PRN Reason: Pain, moderate (4-7) Last Admin: 12/09/17 04:40 Dose: 1 tab Acetylcysteine (Mucomyst 10% 4ml) 2 ml IH RBID [facility] Last Admin: 12/10/17 07:59 Dose: 2 ml Al Hydrox/Mg Hydrox/Simethicone (Maalox Plus 30 Ml) 30 ml PO Q4H PRN PRN Reason: heartburn/indigestion Aspirin (Ecotrin) 81 mg PO DAILY [facility] Last Admin: 12/10/17 10:09 Dose: 81 mg Calcium Carbonate (Oscal) 500 mg PO BID [facility] Last Admin: 12/10/17 09:51 Dose: 500 mg Enoxaparin Sodium (Lovenox) 40 mg SC QPM [facility] PRN Reason: Protocol Last Admin: 12/09/17 17:33 Dose: 40 mg Vancomycin HCl 1 gm/ Sodium (Chloride) 250 mls @ 166.667 mls/hr IVPB DAILY [facility] PRN Reason: Protocol Last Admin: 12/10/17 10:12 Dose: 166.667 mls/hr Meropenem 500 mg/ Sodium (Chloride) 100 mls @ 100 mls/hr IVPB Q8 [facility] PRN Reason: Protocol Last Admin: 12/10/17 10:11 Dose: 100 mls/hr Insulin Human Regular (Humulin R) 0 units SC ACCU-CHECK [facility] PRN Reason: Protocol Last Admin: 12/10/17 10:10 Dose: 2 units Levalbuterol HCl (Xopenex) 1.25 mg INH RQ4 [facility] Last Admin: 12/10/17 07:59 Dose: 1.25 mg Lidocaine (Lidoderm) 1 ea TD DAILY [facility] Last Admin: 12/10/17 10:10 Dose: 1 ea Magnesium Hydroxide (Milk Of Magnesia) 30 ml PO DAILY PRN PRN Reason: Constipation Montelukast Sodium (Singulair) 10 mg PO HS [facility] Last Admin: 12/09/17 21:59 Dose: 10 mg Multivitamins/Minerals (Therapeutic-M Tab) 1 tab PO DAILY [facility] Last Admin: 12/10/17 10:09 Dose: 1 tab Pantoprazole Sodium (Protonix Ec Tab) 40 mg PO DAILY [facility] Last Admin: 12/10/17 09:51 Dose: 40 mg Prednisone (Prednisone Tab) 10 mg PO DAILY [facility] Last Admin: 12/10/17 10:11 Dose: 10 mg Silver Sulfadiazine (Silvadene 1% 20 Gm) 1 ea TOP QSHIFT [facility] Tramadol HCl (Ultram) 50 mg PO Q8H PRN PRN Reason: Pain, moderate (4-7) Last Admin: 12/10/17 00:27 Dose: 50 mg Trazodone HCl (Desyrel) 50 mg PO HS [facility] Last Admin: 12/09/17 21:59 Dose: 50 mg Verapamil HCl (Calan Sr Tab) 120 mg PO DAILY [facility] Last Admin: 12/10/17 10:09 Dose: 120 mg - Labs Labs: 12/10/17 08:33 12/10/17 08:33 - Constitutional Appears: No Acute Distress, Chronically Ill - Head Exam Head Exam: NORMAL INSPECTION, NORMOCEPHALIC - Eye Exam Eye Exam: EOMI, Normal appearance Pupil Exam: NORMAL ACCOMODATION - ENT Exam ENT Exam: Mucous Membranes Dry, Normal External Ear Exam - Neck Exam Neck Exam: Full ROM. absent: Meningismus - Respiratory Exam Respiratory Exam: Rales, Rhonchi. minimal Wheeze, No Respiratory Distress - Cardiovascular Exam Cardiovascular Exam: REGULAR RHYTHM, +S1, +S2 - GI/Abdominal Exam GI & Abdominal Exam: Distended, Soft, Normal Bowel Sounds. absent: Tenderness - Extremities Exam Extremities Exam: Normal Capillary Refill. absent: Calf Tenderness, Joint Swelling - Neurological Exam Neurological Exam: Alert, Awake Neuro motor strength exam: Left Upper Extremity: 4, Right Upper Extremity: 4, Left Lower Extremity: 4, Right Lower Extremity: 4 Additional comments: oriented to person and place - Psychiatric Exam Psychiatric exam: Flat Affect - Skin Skin Exam: Dry, Pallor, Warm Assessment and Plan - Assessment and Plan (Free Text) Assessment: 82 y/o Female, well known to our service from previous multiple admissions 1. Sepsis secondary to Nosocomial left upper/lower lobe pneumonia Pt was hypotensive on admission, with leukocytosis, tachycardia cont Vancomycin 1 gram IVPB daily Rocephin changed to IV Meropenem Blood CX: neg Sputum CX pending Influenza negative Pulm consult : DR Oscar ( pt's Pulmonary MD) 2. Mucus Plugging Post obst atelectasis seen on CT - start Mucomyst Chest Physiotherapy 3. Chronic CHF, systolic and diastolic dysfunction, with minimally elevated troponin ECHO done last year showed EF 35%. Repeat Echo on previous admission showed normal EF Lasix held due to hypotension, will restart PO Lasix no BB due to COPD restart Verapamil hold ARB for now due to low BP 4. Troponin Elevation likely due to demand ischemia due to Sepsis Troponin now normal had elevated Trop on previous admission cont ASA LDL normal on previous admission no BB sec to COPD 5. UTI Urine c/s : ESBL E coli previous cultures showed ESBL E coli - ? colonization Pt was started by Dr nguyen on Meropenem 6. Chronic Respiratory Failure, on Home Oxygen sec to COPD and CHF Continue Singulair cont Xopenex 7. 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 DM type II Accucheck with coverage lcont Levemir 9. Anxiety/ depression on trazodone q hs - states she needs it for sleep DVT prophylaxis Lovenox
--- NOTE | 2017-12-10 13:17 | CP.PCM.CON ---
History of Present Illness - History of Present Illness History of Present Illness: This 82-year-old Arabic-speaking female is well-known to me from multiple prior hospitalizations. She has long-standing chronic pulmonary disease and uses home oxygen. She had recent hospitalization because of UTI with sepsis secondary to Escherichia coli. She had been at rehabilitation and referred to the hospital emergency room because of fever and lethargy. Upon arrival she was somewhat hypotensive and given fluid bolus and placed on dual antibiotic coverage. An arterial blood gas reveals elevated carbon dioxide level with elevated bicarbonate and normal pH suggesting chronic nature of this illness. CT scan of the thorax was performed which showed emphysematous configuration and atelectasis of the left lower lobe with suggestion of possible mucoid impacted airway. Past Patient History - Infectious Disease Hx of Infectious Diseases: None - Tetanus Immunizations Tetanus Immunization: Unknown - Past Medical History & Family History Past Medical History?: Yes Past Family History: Reviewed and not pertinent - Past Social History Smoking Status: Former Smoker Chewing Tobacco Use: No Cigar Use: No Alcohol: None Drugs: Denies Home Situation {Lives}: Other (Rehabilitation) - CARDIAC Hx Congestive Heart Failure: Yes Hx Hypercholesterolemia: Yes Hx Hypertension: Yes - PULMONARY Hx Asthma: Yes Hx Chronic Obstructive Pulmonary Disease (COPD): Yes Hx Emphysema: Yes Hx Pneumonia: Yes - NEUROLOGICAL Hx Seizures: No - HEENT Hx HEENT Problems: No - RENAL Hx Chronic Kidney Disease: No - ENDOCRINE/METABOLIC Hx Diabetes Mellitus Type 2: Yes Hx Hypothyroidism: Yes - HEMATOLOGICAL/ONCOLOGICAL Hx Anemia: Yes Hx Cancer: Yes Hx Human Immunodeficiency Virus (HIV): No - INTEGUMENTARY Hx Dermatological Problems: No - MUSCULOSKELETAL/RHEUMATOLOGICAL Hx Arthritis: Yes Hx Falls: No Hx Osteoarthritis: Yes - GASTROINTESTINAL Hx Gastritis: Yes - GENITOURINARY/GYNECOLOGICAL Hx Uterine Cancer: Yes Hx Urinary Tract Infection: Yes - PSYCHIATRIC Hx Anxiety: Yes Hx Depression: Yes Hx Substance Use: No - SURGICAL HISTORY Hx Appendectomy: Yes Hx Hysterectomy: Yes - ANESTHESIA Hx Anesthesia: Yes Hx Anesthesia Reactions: No Hx Malignant Hyperthermia: No Meds Allergies/Adverse Reactions: Allergies Allergy/AdvReac Type Severity Reaction Status Date / Time No Known Allergies Allergy Verified 11/06/17 16:50 - Medications Medications: Current Medications Acetaminophen (Tylenol 325mg Tab) 650 mg PO Q4H PRN PRN Reason: Pain, Mild (1-3) Acetaminophen (Tylenol 325mg Tab) 650 mg PO Q4H PRN PRN Reason: Temp >100 Acetaminophen/Codeine Phosphate (Tylenol/Codeine 300 Mg/30 Mg) 1 tab PO Q8 PRN PRN Reason: Pain, moderate (4-7) Last Admin: 12/09/17 04:40 Dose: 1 tab Acetylcysteine (Mucomyst 10% 4ml) 2 ml IH RBID [facility] Last Admin: 12/10/17 07:59 Dose: 2 ml Al Hydrox/Mg Hydrox/Simethicone (Maalox Plus 30 Ml) 30 ml PO Q4H PRN PRN Reason: heartburn/indigestion Aspirin (Ecotrin) 81 mg PO DAILY [facility] Last Admin: 12/10/17 10:09 Dose: 81 mg Calcium Carbonate (Oscal) 500 mg PO BID [facility] Last Admin: 12/10/17 09:51 Dose: 500 mg Enoxaparin Sodium (Lovenox) 40 mg SC QPM [facility] PRN Reason: Protocol Last Admin: 12/09/17 17:33 Dose: 40 mg Vancomycin HCl 1 gm/ Sodium (Chloride) 250 mls @ 166.667 mls/hr IVPB DAILY [facility] PRN Reason: Protocol Last Admin: 12/10/17 10:12 Dose: 166.667 mls/hr Meropenem 500 mg/ Sodium (Chloride) 100 mls @ 100 mls/hr IVPB Q8 [facility] PRN Reason: Protocol Last Admin: 12/10/17 10:11 Dose: 100 mls/hr Insulin Human Regular (Humulin R) 0 units SC ACCU-CHECK [facility] PRN Reason: Protocol Last Admin: 12/10/17 10:10 Dose: 2 units Levalbuterol HCl (Xopenex) 1.25 mg INH RQ4 [facility] Last Admin: 12/10/17 12:13 Dose: 1.25 mg Lidocaine (Lidoderm) 1 ea TD DAILY [facility] Last Admin: 12/10/17 10:10 Dose: 1 ea Magnesium Hydroxide (Milk Of Magnesia) 30 ml PO DAILY [facility] PRN Reason: Constipation Montelukast Sodium (Singulair) 10 mg PO HS [facility] Last Admin: 12/09/17 21:59 Dose: 10 mg Multivitamins/Minerals (Therapeutic-M Tab) 1 tab PO DAILY [facility] Last Admin: 12/10/17 10:09 Dose: 1 tab Pantoprazole Sodium (Protonix Ec Tab) 40 mg PO DAILY [facility] Last Admin: 12/10/17 09:51 Dose: 40 mg Prednisone (Prednisone Tab) 10 mg PO DAILY [facility] Last Admin: 12/10/17 10:11 Dose: 10 mg Silver Sulfadiazine (Silvadene 1% 20 Gm) 1 ea TOP QSHIFT [facility] Tramadol HCl (Ultram) 50 mg PO Q8H PRN PRN Reason: Pain, moderate (4-7) Last Admin: 12/10/17 00:27 Dose: 50 mg Trazodone HCl (Desyrel) 50 mg PO HS [facility] Last Admin: 12/09/17 21:59 Dose: 50 mg Verapamil HCl (Calan Sr Tab) 120 mg PO DAILY [facility] Last Admin: 12/10/17 10:09 Dose: 120 mg Physical Exam - Additional Findings Additional findings: Well-nourished, well-developed female who appears rather somnolent at the time of examination. She is easily aroused cooperative with the examination. Pharynx is pink and a tongue appears to be coded. Conjunctivae are pink and there is no scleral icterus. Neck is supple and trachea is midline. No palpable cervical or supraclavicular adenopathy. No dullness on chest percussion anteriorly. Increased AP diameter of the thorax is noted. Breath sounds are diminished bilaterally especially in the left lower lobe posteriorly. Scattered rhonchi medium rales are heard in the lower lobes bilaterally. Expiratory phase is prolonged without audible wheezing. No bronchial breathing or egophony. Heart sounds are distant. Rhythm is regular. No dependent edema. No cyanosis. Results - Vital Signs Recent Vital Signs: Last Vital Signs Temp 99.2 F 12/10/17 12:00 Pulse 106 H 12/10/17 12:00 Resp 18 12/10/17 12:00 BP 108/52 L 12/10/17 12:00 Pulse Ox 96 12/10/17 08:00 - Labs Result Diagrams: 12/10/17 08:33 12/10/17 08:33 Labs: Laboratory Results - last 24 hr 12/09/17 12/09/17 12/09/17 12:56 12:56 15:51 WBC 12.3 H RBC 3.05 L Hgb 9.3 L D Hct 28.8 L MCV 94.2 MCH 30.5 MCHC 32.4 L RDW 17.4 H Plt Count 176 Sodium 135 Potassium 4.2 Chloride 90 L Carbon Dioxide 41 H* Anion Gap 8 L BUN 48 H Creatinine 0.7 Est GFR ( Amer) > 60 Est GFR (Non-Af Amer) > 60 POC Glucose (mg/dL) 288 H Random Glucose 318 H Calcium 9.7 12/09/17 12/10/17 12/10/17 20:59 05:36 08:33 WBC 10.1 RBC 2.81 L Hgb 8.8 L Hct 26.4 L MCV 94.0 MCH 31.3 H MCHC 33.3 RDW 17.4 H Plt Count 158 Sodium Potassium Chloride Carbon Dioxide Anion Gap BUN Creatinine Est GFR ( Amer) Est GFR (Non-Af Amer) POC Glucose (mg/dL) 297 H 197 H Random Glucose Calcium 12/10/17 12/10/17 08:33 10:42 WBC RBC Hgb Hct MCV MCH MCHC RDW Plt Count Sodium 137 Potassium 3.8 Chloride 94 L Carbon Dioxide 38 H Anion Gap 9 L BUN 29 H Creatinine 0.6 L Est GFR ( Amer) > 60 Est GFR (Non-Af Amer) > 60 POC Glucose (mg/dL) 352 H Random Glucose 199 H Calcium 10.8 H Assessment & Plan (1) Hypercapnic respiratory failure, chronic Status: Chronic Priority: High (2) Atelectasis, left Status: Acute Priority: High Comment: Left lower lobe atelectasis. Possible mucoid impaction of the left lower lobe bronchus. (3) COPD (chronic obstructive pulmonary disease) Status: Chronic Priority: High - Assessment and Plan (Free Text) Plan: Aggressive inhalation therapy with ipratropium/albuterol 4 times daily. Request 20% acetylcysteine, 2 mL via nebulizer twice daily. Request chest physiotherapy to the left lower lobe with clapping and coughing. Trazodone may have significant drying effects increasing the tendency to have mucoid impaction. - Date & Time Date: 12/10/17 Time: 13:15
[2017-12-10] MEDS ORDERED: Albuterol 0.042% Inhal Sol (1.25 mg/3 mL) UD ONE (13:31)
[2017-12-10] MEDS ORDERED: methylPREDNISolone 125 MG in Sodium Chloride 0.9% 50 ML IVPB ONE (13:39)
[2017-12-10 13:46] LABS: ABG ALLEN TEST YES; ARTERIAL BLOOD GAS HEMOGLOBIN 9.2 g/dL (11.7-17.4); ARTERIAL BLOOD GAS O2 CAPACITY 12.6 mL/dL (16-24); ARTERIAL BLOOD GAS O2 CONTENT 11.6 ML/dL (15-23); ARTERIAL BLOOD GAS O2 SAT 91.9 % (95-98); ARTERIAL BLOOD GAS PCO2 44 mm/Hg (35-45); ARTERIAL BLOOD GAS PH 7.49 (7.35-7.45); ARTERIAL BLOOD GAS PO2 55 mm/Hg (80-100); ARTERIAL BLOOD GAS TCO2 34.9 mmol/L (22-28)
[2017-12-10] MEDS ORDERED: Acetylcysteine 20% Inhal Soln (4ml) INH STA (13:57)
[2017-12-10] MEDS ORDERED: Levalbuterol 1.25 MG/3 ML Inhal Soln UD INH ONE (13:58)
[2017-12-10] MEDS ORDERED: MethylPREDNISolone 40 mg Vial IVP SCH (14:00)
[2017-12-10] MEDS ORDERED: methylPREDNISolone 40 MG in Sodium Chloride 0.9% 50 ML IVPB SCH ×2 (14:00→21:00)
--- NOTE | 2017-12-10 15:19 | PCM.RRT ---
<Kal Brandt - Last Filed: 12/10/17 15:37> VARNISH REMOVER Nurse Assessment - Situation Location: [address] [place] [address] Room Number: 402 2 [facility]ARNISH REMOVER Reason for Call: Respiratory Distress, O2 Saturation below 90% - IV IV Inserted during VARNISH REMOVER?: Yes - Respiratory Oxygen Delivery Method: Mask, BiPAP Received Nebulizer Treatments: Yes (albuterol) Was the Patient Ventilated with Bag/Mask 100% O2?: No Secretions Suctioned?: No Was the Patient Intubated?: No Was the Patient Placed on a Ventilator?: No - Ventilator Settings Ventilator Respiratory Rate Settin Ventilator Tidal Volume Settin Peak Flow: 0 - Medication Medications Administered During VARNISH REMOVER: 13:35 lasix 40 mg IVp - Diagnostic Test Ordered EKG: No Chest X-Ray: No CT Scan: No - Stat Labs Ordered VARNISH REMOVER Stat Labs Ordered: ABG - Vital Signs Vital Signs: Rapid Response Vital Sign Blood Pressure 157/61 Pulse Rate 113 Respiratory Rate 34 Oxygen Saturation 88 - Time VARNISH REMOVER Ended Time VARNISH REMOVER Ended: 13:55 - Vital Signs at end of VARNISH REMOVER Vital Signs at end of VARNISH REMOVER: Rapid Response End Vital Sign Blood Pressure 144/66 Pulse Rate 105 Respiratory Rate 26 O2 Sat by Pulse Oximetry 96 - Recommendations VARNISH REMOVER Level of Care Recommendations: Remain in current setting I.Reason for VARNISH REMOVER - A) Acute Change in Patient: (Select all that apply): Acute change in SpO2 less Subjective: VARNISH REMOVER Time: 13:25 VARNISH REMOVER Arrival: 13:26 VARNISH REMOVER Location: 402-2 S: VARNISH REMOVER was called by RN on 82 y/o F due to low oxygen saturation and difficulty breathing. Pt was in supine sitting position, with noticeable labored breathing , on oxygen by nasal cannula. O: -Vital Signs: Sat O2-74%, BP 157/61, HR 114, RR 38. Serum glucose 439. -Physical Exam: >Gen: Pt awake, alert and oriented. Verbal in very short sentences, in respiratory distress. >Lungs: presence of scattered wheezing and rales, predominantly on lower lobe b/l areas. >CV: S1 and S2 present. >Ext: pulses 2+ b/l, no cyanosis or edema. VARNISH REMOVER Interventions: - IV access on R arm acquired. - Bi-PAP and ABG ordered. - Lasix 40mg IV STAT administered, - Solu-Medrol 40mg STAT administered. - Upon BiPAP placement, pt was extremely uncomfortable and BiPAP was discontinued as per pt's request. High-flow Oxygen provided. - At 13:58, pt showed some improvemed, verbal with short sentences. Sat O2 94%. - Repeated vital Signs: 144/66, HR 107, RR 30, Sat O2 98%. - Acetylcysteine with Levalbuterol by inhalation ordered. - Observation for 20 minutes - Pt maintained a O2 sat of 96-99%. A/P 82 y/o F with a PMHx of end-stage CHF and severe COPD presented an episode of dyspnea due to multiple factors: exacerbation of CHF, exacerbation of COPD, nosocomial pneumonia and abundant mucous plugging. -Continue monitoring Oxygen adn VS. -Solu Medrol 40mg IVP Q12. -Levemir 15 IU at night. -C/w high flow oxygen. -F/U radio adjuster recommendations. VARNISH REMOVER Ends: 14:18. VARNISH REMOVER leader: Ashley Romero VARNISH REMOVER Residents: Rikki PGY-1 <Briana Marroquin - Last Filed: 12/10/17 15:41> VARNISH REMOVER Nurse Assessment - Vital Signs Vital Signs: Rapid Response Vital Sign Blood Pressure 157/61 Pulse Rate 113 Respiratory Rate 34 Oxygen Saturation 88 - Vital Signs at end of VARNISH REMOVER Vital Signs at end of VARNISH REMOVER: Rapid Response End Vital Sign Blood Pressure 144/66 Pulse Rate 105 Respiratory Rate 26 O2 Sat by Pulse Oximetry 96 Attending/Attestation - Attestation I have personally seen and examined this patient.: Yes I have fully participated in the care of the patient.: Yes I have reviewed all pertinent clinical information, including history, physical exam and plan: Yes Notes (Text): Acute on Chronic Hypoxemic Respiratory Failure sec to 1. Mucus Plugging, 2. PNA, 3. COPD exacerbation 4. CHF exacerbation - Pt placed on High Flow Oxygen 40/100 initially - IV Lasix 40 mg x 2 - IV Solumedrol 40mg - Mucomyst + Xopenex - Chest physiotherapy - ABG - rpt CXR in am - cont IV abx Pt's condition improved, resp distress resolved, saturation now 97-98%
[2017-12-10] MEDS: Albuterol-Ipratrop 3 mg / 0.5 (3 ml) UD INH SCH ×2 (15:36→20:28)
[2017-12-10] MEDS ORDERED: Acetylcysteine 20% Inhal Soln (4ml) INH SCH (20:00)
--- NOTE | 2017-12-10 20:16 | CP.PCM.PN ---
Subjective - Date & Time of Evaluation Date of Evaluation: 12/10/17 Time of Evaluation: 08:00 - Subjective Subjective: BOBBIN DISKER noted a little less SOB now awake alert no chest pain Objective - Vital Signs/Intake and Output Vital Signs (last 24 hours): Temp Pulse Resp BP Pulse Ox 98.1 F 80 18 102/55 L 100 12/10/17 19:47 12/10/17 19:47 12/10/17 19:47 12/10/17 19:47 12/10/17 19:47 Intake and Output: 12/10/17 12/11/17 18:59 06:59 Output Total 1200 Balance -1200 - Medications Medications: Current Medications Acetaminophen (Tylenol 325mg Tab) 650 mg PO Q4H PRN PRN Reason: Pain, Mild (1-3) Acetaminophen (Tylenol 325mg Tab) 650 mg PO Q4H PRN PRN Reason: Temp >100 Acetaminophen/Codeine Phosphate (Tylenol/Codeine 300 Mg/30 Mg) 1 tab PO Q8 PRN PRN Reason: Pain, moderate (4-7) Last Admin: 12/09/17 04:40 Dose: 1 tab Acetylcysteine (Acetylcysteine 20%) 2 ml INH RBID [facility] Al Hydrox/Mg Hydrox/Simethicone (Maalox Plus 30 Ml) 30 ml PO Q4H PRN PRN Reason: heartburn/indigestion Albuterol Sulfate (Albuterol 0.083% Inhal Ro (2.5 Mg/3 Ml) Ud) 2.5 mg INH RQ4 PRN PRN Reason: Shortness of Breath Albuterol/Ipratropium (Duoneb 3 Mg/0.5 Mg (3 Ml) Ud) 3 ml INH RQID [facility] Last Admin: 12/10/17 15:36 Dose: 3 ml Aspirin (Ecotrin) 81 mg PO DAILY [facility] Last Admin: 12/10/17 10:09 Dose: 81 mg Calcium Carbonate (Oscal) 500 mg PO BID [facility] Last Admin: 12/10/17 17:05 Dose: 500 mg Enoxaparin Sodium (Lovenox) 40 mg SC QPM [facility] PRN Reason: Protocol Last Admin: 12/09/17 17:33 Dose: 40 mg Furosemide (Lasix) 40 mg PO DAILY [facility] Vancomycin HCl 1 gm/ Sodium (Chloride) 250 mls @ 166.667 mls/hr IVPB DAILY [facility] PRN Reason: Protocol Last Admin: 12/10/17 10:12 Dose: 166.667 mls/hr Meropenem 500 mg/ Sodium (Chloride) 100 mls @ 100 mls/hr IVPB Q8 [facility] PRN Reason: Protocol Last Admin: 12/10/17 17:04 Dose: 100 mls/hr Insulin Detemir (Levemir) 15 units SC HS [facility] Insulin Human Regular (Humulin R) 0 units SC ACCU-CHECK [facility] PRN Reason: Protocol Last Admin: 12/10/17 17:03 Dose: 8 units Lidocaine (Lidoderm) 1 ea TD DAILY [facility] Last Admin: 12/10/17 10:10 Dose: 1 ea Magnesium Hydroxide (Milk Of Magnesia) 30 ml PO DAILY [facility] PRN Reason: Constipation Methylprednisolone (Solu-Medrol) 40 mg IVP DAILY [facility] Montelukast Sodium (Singulair) 10 mg PO HS [facility] Last Admin: 12/09/17 21:59 Dose: 10 mg Multivitamins/Minerals (Therapeutic-M Tab) 1 tab PO DAILY [facility] Last Admin: 12/10/17 10:09 Dose: 1 tab Pantoprazole Sodium (Protonix Ec Tab) 40 mg PO DAILY [facility] Last Admin: 12/10/17 09:51 Dose: 40 mg Silver Sulfadiazine (Silvadene 1% 20 Gm) 1 ea TOP QSHIFT [facility] Tramadol HCl (Ultram) 50 mg PO Q8H PRN PRN Reason: Pain, moderate (4-7) Last Admin: 12/10/17 00:27 Dose: 50 mg Verapamil HCl (Calan Sr Tab) 120 mg PO DAILY [facility] Last Admin: 12/10/17 10:09 Dose: 120 mg - Labs Labs: 12/10/17 08:33 12/10/17 08:33 - Constitutional Appears: No Acute Distress, Chronically Ill - Head Exam Head Exam: NORMOCEPHALIC - Eye Exam Eye Exam: PERRL. absent: Scleral icterus - ENT Exam ENT Exam: Mucous Membranes Dry - Neck Exam Neck Exam: absent: Lymphadenopathy - Respiratory Exam Respiratory Exam: Decreased Breath Sounds, Clear to Ausculation Bilateral - Cardiovascular Exam Cardiovascular Exam: REGULAR RHYTHM - GI/Abdominal Exam GI & Abdominal Exam: Distended, Soft - Rectal Exam Rectal Exam: Deferred - Exam Exam: NORMAL INSPECTION - Extremities Exam Extremities Exam: absent: Pedal Edema - Back Exam Back Exam: absent: CVA tenderness (L), CVA tenderness (R) - Neurological Exam Neurological Exam: Alert, Altered, Awake Neuro motor strength exam: Left Upper Extremity: 3, Right Upper Extremity: 3, Left Lower Extremity: 3, Right Lower Extremity: 3 - Psychiatric Exam Psychiatric exam: Depressed - Skin Skin Exam: Dry Assessment and Plan (1) Pneumonia Status: Acute (2) Dehydration Status: Acute (3) Diabetes Status: Acute (4) ESBL (extended spectrum beta-lactamase) producing bacteria infection Status: Acute - Assessment and Plan (Free Text) Assessment: cont iv rx + ESBL E COLI urine await sputumm c/s
[2017-12-10] MEDS: Enoxaparin 40 mg Syringe SC SCH (21:54)
[2017-12-10] MEDS ORDERED: Insulin Detemir 100 Units/ml Inj SC SCH ×2 (22:00)
[2017-12-11] MEDS: Meropenem 500 MG in Sodium Chloride 0.9% 100 ML IVPB SCH ×3 (00:25→17:04)
[2017-12-11 06:24] LABS: HEMOGLOBIN 9.5 g/dL (12.0-16.0); MEAN CELL VOLUME 93.2 fl (81.0-99.0); MEAN CORPUSCULAR HEMOGLOBIN 31.1 pg (27.0-31.0); MEAN CORPUSCULAR HGB CONC 33.3 g/dL (33.0-37.0); RBC 3.05 Mil/uL (3.80-5.20); RED CELL DISTRIBUTION WIDTH 16.4 % (11.5-14.5); WHITE BLOOD COUNT 8.8 K/uL (4.8-10.8)
[2017-12-11 06:25] LABS: BLOOD UREA NITROGEN 26 mg/dl (7-17); CALCIUM 9.5 mg/dL (8.4-10.2); GFR AFRICAN-AMERICAN > 60; GFR NON-AFRICAN AMERICAN > 60
[2017-12-11 06:30] LABS: B-TYPE NATRIURETIC PEPTIDE 1640 pg/ml (0-900)
[2017-12-11] MEDS: Acetylcysteine 20% Inhal Soln (10ml) IH SCH ×2 (08:12→19:50)
[2017-12-11] MEDS: Albuterol-Ipratrop 3 mg / 0.5 (3 ml) UD INH SCH ×4 (08:12→19:49)
[2017-12-11] MEDS: Insulin Regular 100 units/ml SC SCH ×3 (08:30→17:06)
[2017-12-11] MEDS: Lidocaine 5% Patch TD SCH (09:10)
[2017-12-11] MEDS: Pantoprazole 40 mg EC Tab PO SCH (09:11)
[2017-12-11] MEDS: Multivitamin With Minerals Tab PO SCH (09:11)
[2017-12-11] MEDS: MethylPREDNISolone 40 mg Vial IVP SCH (09:11)
--- NOTE | 2017-12-11 10:19 | CP.PCM.PN ---
Subjective - Date & Time of Evaluation Date of Evaluation: 12/11/17 Time of Evaluation: 10:14 - Subjective Subjective: Interim events noted. Placed on NPPV using HFNC (refused BiPAP)> Today's lab shows decreased TCO2, SpO2 100%. WBC down to 8.8, urine culture positive ESBL-E coli. Currently on Meropenem. Afebrile. Glucose 228 this morning. Solumedrol limited to 40MG once daily. Awake, oriented, talkative. Pharynx pink and moist, tongue not coated. Neck supple and trachea is midline. No dullness on chest percussion. Expiratory phase is prolonged with low pitch E wheezing in all lung knut[place], 2 hrs after neb treatment. No bronchial breathing or wheezing. Unable to hear rales. No cyanosis. HFNC decreased to 30LPM and 70% oxgen. Continue aerosol therapies with albuterol/ipratropium. Continue parenteral steroids and insulin control of hyperglycemia. Continue CPT using flutter valve. Objective - Vital Signs/Intake and Output Vital Signs (last 24 hours): Temp Pulse Resp BP Pulse Ox 97.6 F 91 H 20 168/86 H 100 12/11/17 08:00 12/11/17 08:00 12/11/17 08:13 12/11/17 09:10 12/11/17 08:00 Intake and Output: 12/10/17 12/11/17 23:59 11:59 Output Total 1600 Balance -1600 - Medications Medications: Current Medications Acetaminophen (Tylenol 325mg Tab) 650 mg PO Q4H PRN PRN Reason: Pain, Mild (1-3) Acetaminophen (Tylenol 325mg Tab) 650 mg PO Q4H PRN PRN Reason: Temp >100 Acetaminophen/Codeine Phosphate (Tylenol/Codeine 300 Mg/30 Mg) 1 tab PO Q8 PRN PRN Reason: Pain, moderate (4-7) Last Admin: 12/09/17 04:40 Dose: 1 tab Acetylcysteine (Mucomyst 20% Inhal Ro (10ml)) 2 ml IH RBID [facility] Last Admin: 12/11/17 08:12 Dose: 2 ml Al Hydrox/Mg Hydrox/Simethicone (Maalox Plus 30 Ml) 30 ml PO Q4H PRN PRN Reason: heartburn/indigestion Albuterol Sulfate (Albuterol 0.083% Inhal Ro (2.5 Mg/3 Ml) Ud) 2.5 mg INH RQ4 PRN PRN Reason: Shortness of Breath Albuterol/Ipratropium (Duoneb 3 Mg/0.5 Mg (3 Ml) Ud) 3 ml INH RQID [facility] Last Admin: 12/11/17 08:12 Dose: 3 ml Aspirin (Ecotrin) 81 mg PO DAILY [facility] Last Admin: 12/11/17 09:11 Dose: 81 mg Calcium Carbonate (Oscal) 500 mg PO BID [facility] Last Admin: 12/11/17 09:11 Dose: 500 mg Enoxaparin Sodium (Lovenox) 40 mg SC QPM [facility] PRN Reason: Protocol Last Admin: 12/10/17 21:54 Dose: 40 mg Furosemide (Lasix) 40 mg PO BID [facility] Last Admin: 12/11/17 09:10 Dose: 40 mg Vancomycin HCl 1 gm/ Sodium (Chloride) 250 mls @ 166.667 mls/hr IVPB DAILY [facility] PRN Reason: Protocol Last Admin: 12/11/17 09:09 Dose: 166.667 mls/hr Meropenem 500 mg/ Sodium (Chloride) 100 mls @ 100 mls/hr IVPB Q8 [facility] PRN Reason: Protocol Last Admin: 12/11/17 09:09 Dose: 100 mls/hr Insulin Detemir (Levemir) [address] [facility] Last Admin: 12/10/17 21:55 Dose: 15 units Insulin Human Regular (Humulin R) 0 units SC ACCU-CHECK [facility] PRN Reason: Protocol Last Admin: 12/11/17 08:30 Dose: 3 units Lidocaine (Lidoderm) 1 ea TD DAILY [facility] Last Admin: 12/11/17 09:10 Dose: Not Given Magnesium Hydroxide (Milk Of Magnesia) 30 ml PO DAILY PRN PRN Reason: Constipation Methylprednisolone (Solu-Medrol) 40 mg IVP DAILY [facility] Last Admin: 12/11/17 09:11 Dose: 40 mg Montelukast Sodium (Singulair) 10 mg PO HS [facility] Last Admin: 12/10/17 21:55 Dose: 10 mg Multivitamins/Minerals (Therapeutic-M Tab) 1 tab PO DAILY [facility] Last Admin: 12/11/17 09:11 Dose: 1 tab Pantoprazole Sodium (Protonix Ec Tab) 40 mg PO DAILY [facility] Last Admin: 12/11/17 09:11 Dose: 40 mg Silver Sulfadiazine (Silvadene 1% 20 Gm) 1 ea TOP QSHIFT [facility] Tramadol HCl (Ultram) 50 mg PO Q8H PRN PRN Reason: Pain, moderate (4-7) Last Admin: 12/10/17 00:27 Dose: 50 mg Valsartan (Diovan) 80 mg PO DAILY [facility] Verapamil HCl (Calan Sr Tab) 240 mg PO DAILY [facility] - Labs Labs: 12/11/17 05:20 12/11/17 05:20 Assessment and Plan (1) Hypercapnic respiratory failure, chronic Status: Chronic (2) Atelectasis, left Status: Acute (3) COPD (chronic obstructive pulmonary disease) Status: Chronic
[2017-12-11] MEDS: Verapamil 240 mg ER Tab PO SCH (10:43)
--- NOTE | 2017-12-11 13:56 | CP.PCM.PN ---
Subjective - Date & Time of Evaluation Date of Evaluation: 12/11/17 Time of Evaluation: 12:00 - Subjective Subjective: Pt feels very much better today compared to yesterday doing well on the High Flow Oxygen- decreased to 30 L, 70% no fever appetite good no CP no abd pain no diarrhea Objective - Vital Signs/Intake and Output Vital Signs (last 24 hours): Temp Pulse Resp BP Pulse Ox 98.9 F 97 H 18 154/73 H 98 12/11/17 12:06 12/11/17 12:06 12/11/17 12:06 12/11/17 12:06 12/11/17 12:06 Intake and Output: 12/11/17 12/11/17 06:59 18:59 Output Total 400 Balance -400 - Medications Medications: Current Medications Acetaminophen (Tylenol 325mg Tab) 650 mg PO Q4H PRN PRN Reason: Pain, Mild (1-3) Acetaminophen (Tylenol 325mg Tab) 650 mg PO Q4H PRN PRN Reason: Temp >100 Acetaminophen/Codeine Phosphate (Tylenol/Codeine 300 Mg/30 Mg) 1 tab PO Q8 PRN PRN Reason: Pain, moderate (4-7) Last Admin: 12/09/17 04:40 Dose: 1 tab Acetylcysteine (Mucomyst 20% Inhal Ro (10ml)) 2 ml IH RBID [facility] Last Admin: 12/11/17 08:12 Dose: 2 ml Al Hydrox/Mg Hydrox/Simethicone (Maalox Plus 30 Ml) 30 ml PO Q4H PRN PRN Reason: heartburn/indigestion Albuterol Sulfate (Albuterol 0.083% Inhal Ro (2.5 Mg/3 Ml) Ud) 2.5 mg INH RQ4 PRN PRN Reason: Shortness of Breath Albuterol/Ipratropium (Duoneb 3 Mg/0.5 Mg (3 Ml) Ud) 3 ml INH RQID [facility] Last Admin: 12/11/17 11:23 Dose: 3 ml Aspirin (Ecotrin) 81 mg PO DAILY [facility] Last Admin: 12/11/17 09:11 Dose: 81 mg Calcium Carbonate (Oscal) 500 mg PO BID [facility] Last Admin: 12/11/17 09:11 Dose: 500 mg Enoxaparin Sodium (Lovenox) 40 mg SC QPM [facility] PRN Reason: Protocol Last Admin: 12/10/17 21:54 Dose: 40 mg Furosemide (Lasix) 40 mg PO BID [facility] Last Admin: 12/11/17 09:10 Dose: 40 mg Vancomycin HCl 1 gm/ Sodium (Chloride) 250 mls @ 166.667 mls/hr IVPB DAILY [facility] PRN Reason: Protocol Last Admin: 12/11/17 09:09 Dose: 166.667 mls/hr Meropenem 500 mg/ Sodium (Chloride) 100 mls @ 100 mls/hr IVPB Q8 [facility] PRN Reason: Protocol Last Admin: 12/11/17 09:09 Dose: 100 mls/hr Insulin Detemir (Levemir) 15 units SC [facility] Last Admin: 12/10/17 21:55 Dose: 15 units Insulin Human Regular (Humulin R) 0 units SC ACCU-CHECK [facility] PRN Reason: Protocol Last Admin: 12/11/17 12:38 Dose: 2 units Lidocaine (Lidoderm) 1 ea TD DAILY [facility] Last Admin: 12/11/17 09:10 Dose: Not Given Magnesium Hydroxide (Milk Of Magnesia) 30 ml PO DAILY PRN PRN Reason: Constipation Methylprednisolone (Solu-Medrol) 40 mg IVP DAILY [facility] Last Admin: 12/11/17 09:11 Dose: 40 mg Montelukast Sodium (Singulair) 10 mg PO HS [facility] Last Admin: 12/10/17 21:55 Dose: 10 mg Multivitamins/Minerals (Therapeutic-M Tab) 1 tab PO DAILY [facility] Last Admin: 12/11/17 09:11 Dose: 1 tab Pantoprazole Sodium (Protonix Ec Tab) 40 mg PO DAILY [facility] Last Admin: 12/11/17 09:11 Dose: 40 mg Silver Sulfadiazine (Silvadene 1% 20 Gm) 1 ea TOP QSHIFT [facility] Tramadol HCl (Ultram) 50 mg PO Q8H PRN PRN Reason: Pain, moderate (4-7) Last Admin: 12/10/17 00:27 Dose: 50 mg Valsartan (Diovan) 80 mg PO DAILY [facility] Last Admin: 12/11/17 10:43 Dose: 80 mg Verapamil HCl (Calan Sr Tab) 240 mg PO DAILY [facility] Last Admin: 12/11/17 10:43 Dose: 240 mg - Labs Labs: 12/11/17 05:20 12/11/17 05:20 - Constitutional Appears: No Acute Distress, Chronically Ill - Head Exam Head Exam: NORMAL INSPECTION, NORMOCEPHALIC - Eye Exam Eye Exam: EOMI, Normal appearance Pupil Exam: NORMAL ACCOMODATION - ENT Exam ENT Exam: Mucous Membranes Dry, Normal External Ear Exam - Neck Exam Neck Exam: Full ROM. absent: Meningismus - Respiratory Exam Respiratory Exam: Rales, Rhonchi. minimal Wheeze, No Respiratory Distress - Cardiovascular Exam Cardiovascular Exam: REGULAR RHYTHM, +S1, +S2 - GI/Abdominal Exam GI & Abdominal Exam: Distended, Soft, Normal Bowel Sounds. absent: Tenderness - Extremities Exam Extremities Exam: Normal Capillary Refill. absent: Calf Tenderness, Joint Swelling - Neurological Exam Neurological Exam: Alert, Awake Neuro motor strength exam: Left Upper Extremity: 4, Right Upper Extremity: 4, Left Lower Extremity: 4, Right Lower Extremity: 4 Additional comments: oriented to person and place - Psychiatric Exam Psychiatric exam: Flat Affect - Skin Skin Exam: Dry, Pallor, Warm Assessment and Plan - Assessment and Plan (Free Text) Assessment: 82 y/o Female, well known to our service from previous multiple admissions, Hx of CAD, CHF, COPD , sent from [facility] of fever , cough . Found to be hypotensive on admission. CT of chest: Progressive consolidative changes/ atelectasis primarily affecting the left lower lobe, of the changes are acute occurring between between the chest radiograph 12/08/[address] scan. The findings suggest postobstructive atelectasis. Mucous plugging is the most likely etiology. 1. Sepsis secondary to Nosocomial left upper/lower lobe pneumonia Pt was hypotensive on admission, with leukocytosis, tachycardia cont Vancomycin 1 gram IVPB daily Rocephin changed to IV Meropenem Blood CX: neg Sputum CX pending Influenza negative Pulm consult : DR Oscar ( pt's Pulmonary MD) 2. Mucus Plugging Post obst atelectasis seen on CT - started Mucomyst -Chest Physiotherapy 3. Chronic CHF, systolic and diastolic dysfunction, with minimally elevated troponin ECHO done last year showed EF 35%. Repeat Echo on previous admission showed normal EF Lasix held due to hypotension, restarted PO Lasix, ARB no BB due to COPD restarted Verapamil 4. COPD exacerbation - cont IV Solumedrol - cont Albuterol neb tx with Mucomyst 5. Troponin Elevation likely due to demand ischemia due to Sepsis Troponin now normal had elevated Trop on previous admission cont ASA LDL normal on previous admission no BB sec to COPD 6. UTI Urine c/s : ESBL E coli previous cultures showed ESBL E coli - ? colonization vs infection Pt was started by Dr nguyen on Meropenem 7. Acute on Chronic Respiratory Failure Hypoxic, herpercapneic , on Home Oxygen sec to COPD and CHF plus PNA and Mucus plugging Pt on High Flow Oxygen 30/70 8. 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 DM type II with hyperglycemia hyperglycemia due to steroids Accucheck with coverage Increase Levemir to 18 units hs DVT prophylaxis Lovenox
--- NOTE | 2017-12-11 14:12 | CP.PCM.PN ---
Subjective - Date & Time of Evaluation Date of Evaluation: 12/11/17 Time of Evaluation: 08:00 - Subjective Subjective: a little less SOB now awake alert no chest pain Objective - Vital Signs/Intake and Output Vital Signs (last 24 hours): Temp Pulse Resp BP Pulse Ox 98.9 F 97 H 18 154/73 H 98 12/11/17 12:06 12/11/17 12:06 12/11/17 12:06 12/11/17 12:06 12/11/17 12:06 Intake and Output: 12/11/17 12/11/17 06:59 18:59 Output Total 400 Balance -400 - Medications Medications: Current Medications Acetaminophen (Tylenol 325mg Tab) 650 mg PO Q4H PRN PRN Reason: Pain, Mild (1-3) Acetaminophen (Tylenol 325mg Tab) 650 mg PO Q4H PRN PRN Reason: Temp >100 Acetaminophen/Codeine Phosphate (Tylenol/Codeine 300 Mg/30 Mg) 1 tab PO Q8 PRN PRN Reason: Pain, moderate (4-7) Last Admin: 12/09/17 04:40 Dose: 1 tab Acetylcysteine (Mucomyst 20% Inhal Ro (10ml)) 2 ml IH RBID [facility] Last Admin: 12/11/17 08:12 Dose: 2 ml Al Hydrox/Mg Hydrox/Simethicone (Maalox Plus 30 Ml) 30 ml PO Q4H PRN PRN Reason: heartburn/indigestion Albuterol Sulfate (Albuterol 0.083% Inhal Ro (2.5 Mg/3 Ml) Ud) 2.5 mg INH RQ4 PRN PRN Reason: Shortness of Breath Albuterol/Ipratropium (Duoneb 3 Mg/0.5 Mg (3 Ml) Ud) 3 ml INH RQID [facility] Last Admin: 12/11/17 11:23 Dose: 3 ml Aspirin (Ecotrin) 81 mg PO DAILY [facility] Last Admin: 12/11/17 09:11 Dose: 81 mg Calcium Carbonate (Oscal) 500 mg PO BID [facility] Last Admin: 12/11/17 09:11 Dose: 500 mg Enoxaparin Sodium (Lovenox) 40 mg SC QPM [facility] PRN Reason: Protocol Last Admin: 12/10/17 21:54 Dose: 40 mg Furosemide (Lasix) 40 mg PO BID [facility] Last Admin: 12/11/17 09:10 Dose: 40 mg Vancomycin HCl 1 gm/ Sodium (Chloride) 250 mls @ 166.667 mls/hr IVPB DAILY [facility] PRN Reason: Protocol Last Admin: 12/11/17 09:09 Dose: 166.667 mls/hr Meropenem 500 mg/ Sodium (Chloride) 100 mls @ 100 mls/hr IVPB Q8 [facility] PRN Reason: Protocol Last Admin: 12/11/17 09:09 Dose: 100 mls/hr Insulin Detemir (Levemir) 15 units SC [facility] Last Admin: 12/10/17 21:55 Dose: 15 units Insulin Human Regular (Humulin R) 0 units SC ACCU-CHECK [facility] PRN Reason: Protocol Last Admin: 12/11/17 12:38 Dose: 2 units Lidocaine (Lidoderm) 1 ea TD DAILY [facility] Last Admin: 12/11/17 09:10 Dose: Not Given Magnesium Hydroxide (Milk Of Magnesia) 30 ml PO DAILY [facility] PRN Reason: Constipation Methylprednisolone (Solu-Medrol) 40 mg IVP DAILY [facility] Last Admin: 12/11/17 09:11 Dose: 40 mg Montelukast Sodium (Singulair) 10 mg PO HS [facility] Last Admin: 12/10/17 21:55 Dose: 10 mg Multivitamins/Minerals (Therapeutic-M Tab) 1 tab PO DAILY [facility] Last Admin: 12/11/17 09:11 Dose: 1 tab Pantoprazole Sodium (Protonix Ec Tab) 40 mg PO DAILY [facility] Last Admin: 12/11/17 09:11 Dose: 40 mg Silver Sulfadiazine (Silvadene 1% 20 Gm) 1 ea TOP QSHIFT [facility] Tramadol HCl (Ultram) 50 mg PO Q8H PRN PRN Reason: Pain, moderate (4-7) Last Admin: 12/10/17 00:27 Dose: 50 mg Valsartan (Diovan) 80 mg PO DAILY [facility] Last Admin: 12/11/17 10:43 Dose: 80 mg Verapamil HCl (Calan Sr Tab) 240 mg PO DAILY [facility] Last Admin: 12/11/17 10:43 Dose: 240 mg - Labs Labs: 12/11/17 05:20 12/11/17 05:20 - Constitutional Appears: Non-toxic, Cachectic, Chronically Ill - Head Exam Head Exam: NORMOCEPHALIC - Eye Exam Eye Exam: PERRL. absent: Scleral icterus - ENT Exam ENT Exam: Mucous Membranes Dry - Neck Exam Neck Exam: absent: Lymphadenopathy - Respiratory Exam Respiratory Exam: Decreased Breath Sounds - Cardiovascular Exam Cardiovascular Exam: REGULAR RHYTHM - GI/Abdominal Exam GI & Abdominal Exam: Distended, Soft - Rectal Exam Rectal Exam: Deferred - Exam Exam: NORMAL INSPECTION - Extremities Exam Extremities Exam: absent: Pedal Edema - Back Exam Back Exam: absent: CVA tenderness (L), CVA tenderness (R) Assessment and Plan (1) Pneumonia Status: Acute (2) Dehydration Status: Acute (3) Diabetes Status: Acute (4) ESBL (extended spectrum beta-lactamase) producing bacteria infection Status: Acute
[2017-12-11] MEDS: Enoxaparin 40 mg Syringe SC SCH (17:05)
[2017-12-11] MEDS: Insulin Detemir 100 Units/ml Inj SC SCH (22:11)
[2017-12-12] MEDS: Meropenem 500 MG in Sodium Chloride 0.9% 100 ML IVPB SCH ×3 (01:01→17:21)
[2017-12-12] MEDS: Albuterol 0.083% Inhal Sol (2.5 mg/3 mL) UD INH PRN (04:52)
[2017-12-12] MEDS: Albuterol-Ipratrop 3 mg / 0.5 (3 ml) UD INH SCH ×4 (07:38→19:11)
[2017-12-12] MEDS: Insulin Regular 100 units/ml SC SCH ×4 (08:00→22:16)
[2017-12-12] MEDS: Verapamil 240 mg ER Tab PO SCH (08:19)
[2017-12-12] MEDS: Lidocaine 5% Patch TD SCH (08:20)
[2017-12-12] MEDS: Multivitamin With Minerals Tab PO SCH (08:21)
[2017-12-12] MEDS: Pantoprazole 40 mg EC Tab PO SCH (08:21)
[2017-12-12] MEDS: MethylPREDNISolone 40 mg Vial IVP SCH (08:23)
--- NOTE | 2017-12-12 10:55 | CP.PCM.PN ---
Subjective - Date & Time of Evaluation Date of Evaluation: 12/12/17 Time of Evaluation: 10:50 - Subjective Subjective: Appears to be improving steadily. Awake and alert, cooperative with the exam. Mildly dyspneic when conversing, but speaking in full sentences. No visible cyanosis or dependant edema. Neck is supple and trachea midline. No dullness over the anterior chest wall. Breath sounds are diminished bilaterally with prolonged expiratory phase. No discrete wheezes, no bronchial breath sounds. Will reduce HFNC to 50% O2 and 20LPM flow. Reduce parenteral steroids to 30MG once daily. Repeat ABG to insure no further CO2 retension. Continue current medications. Objective - Vital Signs/Intake and Output Vital Signs (last 24 hours): Temp Pulse Resp BP Pulse Ox 98 F 88 18 151/71 H 100 12/12/17 08:15 12/12/17 08:19 12/12/17 08:15 12/12/17 08:20 12/12/17 08:15 Intake and Output: 12/11/17 12/12/17 23:59 11:59 Intake Total 1700 Output Total 1700 Balance 0 - Medications Medications: Current Medications Acetaminophen (Tylenol 325mg Tab) 650 mg PO Q4H PRN PRN Reason: Pain, Mild (1-3) Acetaminophen (Tylenol 325mg Tab) 650 mg PO Q4H PRN PRN Reason: Temp >100 Acetaminophen/Codeine Phosphate (Tylenol/Codeine 300 Mg/30 Mg) 1 tab PO Q8 PRN PRN Reason: Pain, moderate (4-7) Last Admin: 12/09/17 04:40 Dose: 1 tab Acetylcysteine (Mucomyst 20% Inhal Ro (10ml)) 2 ml IH RBID [facility] Last Admin: 12/11/17 08:12 Dose: 2 ml Al Hydrox/Mg Hydrox/Simethicone (Maalox Plus 30 Ml) 30 ml PO Q4H PRN PRN Reason: heartburn/indigestion Albuterol Sulfate (Albuterol 0.083% Inhal Ro (2.5 Mg/3 Ml) Ud) 2.5 mg INH RQ4 PRN PRN Reason: Shortness of Breath Last Admin: 12/12/17 04:52 Dose: 2.5 mg Albuterol/Ipratropium (Duoneb 3 Mg/0.5 Mg (3 Ml) Ud) 3 ml INH RQID [facility] Last Admin: 12/12/17 07:38 Dose: 3 ml Aspirin (Ecotrin) 81 mg PO DAILY [facility] Last Admin: 12/12/17 08:19 Dose: 81 mg Calcium Carbonate (Oscal) 500 mg PO BID [facility] Last Admin: 12/12/17 08:20 Dose: 500 mg Enoxaparin Sodium (Lovenox) 40 mg SC QPM [facility] PRN Reason: Protocol Last Admin: 12/11/17 17:05 Dose: 40 mg Furosemide (Lasix) 40 mg PO BID [facility] Last Admin: 12/12/17 08:20 Dose: 40 mg Vancomycin HCl 1 gm/ Sodium (Chloride) 250 mls @ 166.667 mls/hr IVPB DAILY [facility] PRN Reason: Protocol Last Admin: 12/12/17 08:21 Dose: 166.667 mls/hr Meropenem 500 mg/ Sodium (Chloride) 100 mls @ 100 mls/hr IVPB Q8 [facility] PRN Reason: Protocol Last Admin: 12/12/17 08:20 Dose: 100 mls/hr Methylprednisolone 30 mg/ (Sodium Chloride) 50 mls @ 100 mls/hr IV DAILY [facility] Insulin Detemir (Levemir) 18 units SC [facility] Last Admin: 12/11/17 22:11 Dose: 18 u Insulin Human Regular (Humulin R) 0 units SC ACCU-CHECK [facility] PRN Reason: Protocol Last Admin: 12/12/17 08:00 Dose: 3 units Lidocaine (Lidoderm) 1 ea TD DAILY [facility] Last Admin: 12/12/17 08:20 Dose: Not Given Magnesium Hydroxide (Milk Of Magnesia) 30 ml PO DAILY [facility] PRN Reason: Constipation Methylprednisolone (Solu-Medrol) 40 mg IVP DAILY [facility] Stop: 12/12/17 23:59 Last Admin: 12/12/17 08:23 Dose: 40 mg Montelukast Sodium (Singulair) 10 mg PO HS [facility] Last Admin: 12/11/17 22:12 Dose: 10 mg Multivitamins/Minerals (Therapeutic-M Tab) 1 tab PO DAILY [facility] Last Admin: 12/12/17 08:21 Dose: 1 tab Pantoprazole Sodium (Protonix Ec Tab) 40 mg PO DAILY [facility] Last Admin: 12/12/17 08:21 Dose: 40 mg Silver Sulfadiazine (Silvadene 1% 20 Gm) 1 ea TOP QSHIFT [facility] Tramadol HCl (Ultram) 50 mg PO Q8H PRN PRN Reason: Pain, moderate (4-7) Last Admin: 12/10/17 00:27 Dose: 50 mg Valsartan (Diovan) 80 mg PO DAILY [facility] Last Admin: 12/12/17 08:19 Dose: 80 mg Verapamil HCl (Calan Sr Tab) 240 mg PO DAILY [facility] Last Admin: 12/12/17 08:19 Dose: 240 mg - Labs Labs: 12/11/17 05:20 12/11/17 05:20 Assessment and Plan (1) Hypercapnic respiratory failure, chronic Status: Chronic (2) Atelectasis, left Status: Acute (3) COPD (chronic obstructive pulmonary disease) Status: Chronic
--- NOTE | 2017-12-12 11:07 | CP.PCM.PN ---
Subjective - Date & Time of Evaluation Date of Evaluation: 12/12/17 Time of Evaluation: 11:30 - Subjective Subjective: Patient was seen and examined bedside. Elderly female of stated age sitting in bed in upright position with high flow O2 via NC 30 LPM FIO2 70 % saturating 97 %. With dyspnea at rest but able to speak fulls sentences BP stable, afebrile No acute issues overnight Feeling weak and states that is worried that will not be able to walk ABG 47/77/367/7.5 WBC 8 K Hgb 9.5 BP 151/71 Blood cx positive for Corynobacter species urine Cx positive fir E. Coli Objective - Vital Signs/Intake and Output Vital Signs (last 24 hours): Temp Pulse Resp BP Pulse Ox 98 F 88 18 151/71 H 100 12/12/17 08:15 12/12/17 08:19 12/12/17 08:15 12/12/17 08:20 12/12/17 08:15 Intake and Output: 12/12/17 12/12/17 06:59 18:59 Intake Total 1700 Output Total 1700 Balance 0 - Medications Medications: Current Medications Acetaminophen (Tylenol 325mg Tab) 650 mg PO Q4H PRN PRN Reason: Pain, Mild (1-3) Acetaminophen (Tylenol 325mg Tab) 650 mg PO Q4H PRN PRN Reason: Temp >100 Acetaminophen/Codeine Phosphate (Tylenol/Codeine 300 Mg/30 Mg) 1 tab PO Q8 PRN PRN Reason: Pain, moderate (4-7) Last Admin: 12/09/17 04:40 Dose: 1 tab Acetylcysteine (Mucomyst 20% Inhal Ro (10ml)) 2 ml IH RBID [facility] Last Admin: 12/11/17 08:12 Dose: 2 ml Al Hydrox/Mg Hydrox/Simethicone (Maalox Plus 30 Ml) 30 ml PO Q4H PRN PRN Reason: heartburn/indigestion Albuterol Sulfate (Albuterol 0.083% Inhal Ro (2.5 Mg/3 Ml) Ud) 2.5 mg INH RQ4 PRN PRN Reason: Shortness of Breath Last Admin: 12/12/17 04:52 Dose: 2.5 mg Albuterol/Ipratropium (Duoneb 3 Mg/0.5 Mg (3 Ml) Ud) 3 ml INH RQID [facility] Last Admin: 12/12/17 07:38 Dose: 3 ml Aspirin (Ecotrin) 81 mg PO DAILY [facility] Last Admin: 12/12/17 08:19 Dose: 81 mg Calcium Carbonate (Oscal) 500 mg PO BID [facility] Last Admin: 12/12/17 08:20 Dose: 500 mg Enoxaparin Sodium (Lovenox) 40 mg SC QPM [facility] PRN Reason: Protocol Last Admin: 12/11/17 17:05 Dose: 40 mg Furosemide (Lasix) 40 mg PO BID [facility] Last Admin: 12/12/17 08:20 Dose: 40 mg Vancomycin HCl 1 gm/ Sodium (Chloride) 250 mls @ 166.667 mls/hr IVPB DAILY [facility] PRN Reason: Protocol Last Admin: 12/12/17 08:21 Dose: 166.667 mls/hr Meropenem 500 mg/ Sodium (Chloride) 100 mls @ 100 mls/hr IVPB Q8 [facility] PRN Reason: Protocol Last Admin: 12/12/17 08:20 Dose: 100 mls/hr Insulin Detemir (Levemir) 18 units SC [facility] Last Admin: 12/11/17 22:11 Dose: 18 u Insulin Human Regular (Humulin R) 0 units SC ACCU-CHECK [facility] PRN Reason: Protocol Last Admin: 12/12/17 08:00 Dose: 3 units Lidocaine (Lidoderm) 1 ea TD DAILY [facility] Last Admin: 12/12/17 08:20 Dose: Not Given Magnesium Hydroxide (Milk Of Magnesia) 30 ml PO DAILY PRN PRN Reason: Constipation Methylprednisolone (Solu-Medrol) 40 mg IVP DAILY [facility] Stop: 12/12/17 23:59 Last Admin: 12/12/17 08:23 Dose: 40 mg Methylprednisolone (Solu-Medrol) 30 mg IVP DAILY [facility] Montelukast Sodium (Singulair) 10 mg PO HS [facility] Last Admin: 12/11/17 22:12 Dose: 10 mg Multivitamins/Minerals (Therapeutic-M Tab) 1 tab PO DAILY [facility] Last Admin: 12/12/17 08:21 Dose: 1 tab Pantoprazole Sodium (Protonix Ec Tab) 40 mg PO DAILY [facility] Last Admin: 12/12/17 08:21 Dose: 40 mg Silver Sulfadiazine (Silvadene 1% 20 Gm) 1 ea TOP QSHIFT [facility] Tramadol HCl (Ultram) 50 mg PO Q8H PRN PRN Reason: Pain, moderate (4-7) Last Admin: 12/10/17 00:27 Dose: 50 mg Valsartan (Diovan) 80 mg PO DAILY [facility] Last Admin: 12/12/17 08:19 Dose: 80 mg Verapamil HCl (Calan Sr Tab) 240 mg PO DAILY [facility] Last Admin: 12/12/17 08:19 Dose: 240 mg - Labs Labs: 12/11/17 05:20 12/11/17 05:20 - Constitutional Appears: Chronically Ill, Other (on high flow with some dyspnea) - Head Exam Head Exam: ATRAUMATIC, NORMAL INSPECTION, NORMOCEPHALIC - Eye Exam Eye Exam: PERRL Pupil Exam: NORMAL ACCOMODATION - ENT Exam ENT Exam: Mucous Membranes Moist, Normal Exam - Neck Exam Neck Exam: Normal Inspection - Respiratory Exam Respiratory Exam: Decreased Breath Sounds (bibasilar ), Prolonged Expiratory Phase. absent: Rhonchi, Wheezes - Cardiovascular Exam Cardiovascular Exam: REGULAR RHYTHM, +S1, +S2 - GI/Abdominal Exam GI & Abdominal Exam: Soft, Normal Bowel Sounds. absent: Distended, Guarding, Tenderness, Rebound - Rectal Exam Rectal Exam: Deferred - Extremities Exam Extremities Exam: Normal Capillary Refill, Normal Inspection. absent: Full ROM , Pedal Edema - Back Exam Back Exam: NORMAL INSPECTION - Neurological Exam Neurological Exam: Alert, Awake, CN II-XII Intact, Oriented x3 - Psychiatric Exam Psychiatric exam: Normal Affect - Skin Skin Exam: Dry, Pallor, Warm Additional comments: Sacral and upper buttock Stage I, 2 right medial upper buttock Stage III, 2 stage II right lower back Assessment and Plan - Assessment and Plan (Free Text) Assessment: 82 y/o Female, well known to our service from previous multiple admissions, Hx of CAD, CHF, COPD , sent from [facility] of fever , cough . Found to be hypotensive on admission. CT of chest showed Progressive consolidative changes/ atelectasis primarily affecting the left lower lobe. patient was admitted withdiagnosis of sepsis and started on IV antibiotics.Pulmonary and ID were consulted Her urine cx reported positive for E. Coli and blood cx positive for corynobacter species Patient developed acute on chronic respiratory failure with hypoxemia and hypercapnia and was placed on High Flow O2 via NC Slowly improving 1. Sepsis secondary to Nosocomial left upper/lower lobe pneumonia, bacteremia and UTI Pt was hypotensive on admission, with leukocytosis, tachycardia urine cx positive for E. Coli Blood cx positive for Corynobacter species CXR showed LLL infiltrtae ID on consult continue Meropenem and vancomycin 2. Acute on Chronic Respiratory Failure Hypoxic, herpercapneic , on Home Oxygen sec to COPD and CHF plus PNA and Mucus plugging Improving slowly on high flow O2 pulmonary on consult .Case discussed decreased High flow to 20 LPM / FIO2 50 % Continue lasix, duonebs, IV antibiotics and Solumedrol peg Solumedrol to 30 mg daily 3.Acute on Chronic CHF, systolic and diastolic dysfunction, with minimally elevated troponin ECHO done last year showed EF 35%. Repeat Echo on previous admission showed normal EF Restarted Lasix Continue ARB and verapamil no BB due to COPD 4. COPD exacerbation peg IV Solumedrol to 30 mg IV daily Pulm onary on consult On High Flow cont Albuterol neb tx with Mucomyst 5. UTI Urine c/s : ESBL E coli previous cultures showed ESBL E coli - ? colonization vs infection on Meropenem as per ID 6. Troponin Elevation likely due to demand ischemia due to Sepsis Troponin now normal had elevated Trop on previous admission cont ASA LDL normal on previous admission no BB sec to COPD 7.Anemia of chronic disease Stable Hgn 95 8. Mucus Plugging post obstructive atelectasis seen on CT on Mucomyst Chest Physiotherapy 9. 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 DM type II with hyperglycemia hyperglycemia due to steroids Accucheck with coverage Increased Levemir to 18 units hs 11.Anxiety and depression stable on Temazepam and trazodone 12. Chronic pain on lidoderm patch to lower back 13. DVT prophylaxis Lovenox
[2017-12-12 12:25] LABS: ABG ALLEN TEST YES; ARTERIAL BLOOD GAS HCO3 37.5 mmol/L (21-28); ARTERIAL BLOOD GAS HEMOGLOBIN 7.9 g/dL (11.7-17.4); ARTERIAL BLOOD GAS O2 CAPACITY 10.9 mL/dL (16-24); ARTERIAL BLOOD GAS O2 CONTENT 10.6 ML/dL (15-23); ARTERIAL BLOOD GAS O2 SAT 97.6 % (95-98); ARTERIAL BLOOD GAS PCO2 47 mm/Hg (35-45); ARTERIAL BLOOD GAS PH 7.54 (7.35-7.45); ARTERIAL BLOOD GAS PO2 77 mm/Hg (80-100); ARTERIAL BLOOD GAS TCO2 41.6 mmol/L (22-28)
[2017-12-12] MEDS: Enoxaparin 40 mg Syringe SC SCH (17:23)
[2017-12-12] MEDS: Acetylcysteine 20% Inhal Soln (10ml) IH SCH (19:10)
[2017-12-12] MEDS: Insulin Detemir 100 Units/ml Inj SC SCH (22:17)
[2017-12-13] MEDS: Meropenem 500 MG in Sodium Chloride 0.9% 100 ML IVPB SCH ×4 (01:32→19:48)
[2017-12-13] MEDS: Albuterol-Ipratrop 3 mg / 0.5 (3 ml) UD INH SCH ×4 (07:39→20:14)
[2017-12-13] MEDS: Insulin Regular 100 units/ml SC SCH ×4 (08:29→22:16)
[2017-12-13] MEDS ORDERED: methylPREDNISolone 30 MG in Sodium Chloride 0.9% 50 ML IV SCH (09:00)
[2017-12-13] MEDS ORDERED: MethylPREDNISolone 40 mg Vial IVP SCH (09:00)
[2017-12-13] MEDS: Verapamil 240 mg ER Tab PO SCH (09:46)
[2017-12-13] MEDS: Multivitamin With Minerals Tab PO SCH (09:47)
[2017-12-13] MEDS: Pantoprazole 40 mg EC Tab PO SCH (09:47)
[2017-12-13] MEDS: Lidocaine 5% Patch TD SCH (09:47)
[2017-12-13 11:00] LABS: MEAN CORPUSCULAR HEMOGLOBIN 30.9 pg (27.0-31.0); MEAN CORPUSCULAR HGB CONC 33.2 g/dL (33.0-37.0); RBC 3.57 Mil/uL (3.80-5.20); RED CELL DISTRIBUTION WIDTH 16.1 % (11.5-14.5); WHITE BLOOD COUNT 10.7 K/uL (4.8-10.8)
[2017-12-13 11:18] LABS: BLOOD UREA NITROGEN 25 mg/dl (7-17); CALCIUM 9.2 mg/dL (8.4-10.2); GFR AFRICAN-AMERICAN > 60; GFR NON-AFRICAN AMERICAN > 60
--- NOTE | 2017-12-13 12:36 | CP.PCM.PN ---
Subjective - Date & Time of Evaluation Date of Evaluation: 12/13/17 Time of Evaluation: 11:30 - Subjective Subjective: Patient was seen and examined bedside. Elderly female of stated age sitting in bed in upright position with high flow O2 via NC 20 LPM FIO2 50 % saturating 100 %. Feeling better , with baseline dyspnea States that was not able to sleep the night before BP stable, tachycardic ,afebrile No acute issues overnight Feeling weak WBC 10 K Hgb 11 BP 68/78 Blood cx positive for Corynobacter species urine Cx positive for E. Coli Objective - Vital Signs/Intake and Output Vital Signs (last 24 hours): Temp Pulse Resp BP Pulse Ox 97.3 F L 112 H 18 168/76 H 100 12/13/17 08:21 12/13/17 09:46 12/13/17 08:51 12/13/17 09:46 12/13/17 08:21 - Medications Medications: Current Medications Acetaminophen (Tylenol 325mg Tab) 650 mg PO Q4H PRN PRN Reason: Pain, Mild (1-3) Last Admin: 12/13/17 01:31 Dose: 650 mg Acetaminophen (Tylenol 325mg Tab) 650 mg PO Q4H PRN PRN Reason: Temp >100 Acetaminophen/Codeine Phosphate (Tylenol/Codeine 300 Mg/30 Mg) 1 tab PO Q8 PRN PRN Reason: Pain, moderate (4-7) Last Admin: 12/09/17 04:40 Dose: 1 tab Acetylcysteine (Mucomyst 20% Inhal Ro (10ml)) 2 ml IH RBID [facility] Last Admin: 12/12/17 19:10 Dose: Not Given Al Hydrox/Mg Hydrox/Simethicone (Maalox Plus 30 Ml) 30 ml PO Q4H PRN PRN Reason: heartburn/indigestion Albuterol Sulfate (Albuterol 0.083% Inhal Ro (2.5 Mg/3 Ml) Ud) 2.5 mg INH RQ4 PRN PRN Reason: Shortness of Breath Last Admin: 12/12/17 04:52 Dose: 2.5 mg Albuterol/Ipratropium (Duoneb 3 Mg/0.5 Mg (3 Ml) Ud) 3 ml INH RQID [facility] Last Admin: 12/13/17 11:50 Dose: 3 ml Aspirin (Ecotrin) 81 mg PO DAILY [facility] Last Admin: 12/13/17 09:47 Dose: 81 mg Calcium Carbonate (Oscal) 500 mg PO BID [facility] Last Admin: 12/13/17 09:46 Dose: 500 mg Enoxaparin Sodium (Lovenox) 40 mg SC QPM [facility] PRN Reason: Protocol Last Admin: 12/12/17 17:23 Dose: 40 mg Furosemide (Lasix) 40 mg PO BID [facility] Last Admin: 12/13/17 09:46 Dose: 40 mg Vancomycin HCl 1 gm/ Sodium (Chloride) 250 mls @ 166.667 mls/hr IVPB DAILY [facility] PRN Reason: Protocol Last Admin: 12/13/17 09:50 Dose: 166.667 mls/hr Meropenem 500 mg/ Sodium (Chloride) 100 mls @ 100 mls/hr IVPB Q8 [facility] PRN Reason: Protocol Last Admin: 12/13/17 09:43 Dose: 100 mls/hr Insulin Detemir (Levemir) 18 units SC [facility] Last Admin: 12/12/17 22:17 Dose: 18 u Insulin Human Regular (Humulin R) 0 units SC ACCU-CHECK [facility] PRN Reason: Protocol Last Admin: 12/13/17 08:29 Dose: Not Given Lidocaine (Lidoderm) 1 ea TD DAILY [facility] Last Admin: 12/13/17 09:47 Dose: 1 ea Magnesium Hydroxide (Milk Of Magnesia) 30 ml PO DAILY PRN PRN Reason: Constipation Methylprednisolone (Solu-Medrol) 30 mg IVP DAILY [facility] Last Admin: 12/13/17 09:44 Dose: 30 mg Montelukast Sodium (Singulair) 10 mg PO HS [facility] Last Admin: 12/12/17 21:14 Dose: 10 mg Multivitamins/Minerals (Therapeutic-M Tab) 1 tab PO DAILY [facility] Last Admin: 12/13/17 09:47 Dose: 1 tab Pantoprazole Sodium (Protonix Ec Tab) 40 mg PO DAILY [facility] Last Admin: 12/13/17 09:47 Dose: 40 mg Silver Sulfadiazine (Silvadene 1% 20 Gm) 1 ea TOP QSHIFT [facility] Tramadol HCl (Ultram) 50 mg PO Q8H PRN PRN Reason: Pain, moderate (4-7) Last Admin: 12/10/17 00:27 Dose: 50 mg Valsartan (Diovan) 80 mg PO DAILY [facility] Last Admin: 12/13/17 09:46 Dose: 80 mg Verapamil HCl (Calan Sr Tab) 240 mg PO DAILY [facility] Last Admin: 12/13/17 09:46 Dose: 240 mg - Labs Labs: 12/13/17 09:45 12/13/17 09:45 - Constitutional Appears: No Acute Distress, Chronically Ill - Head Exam Head Exam: ATRAUMATIC, NORMOCEPHALIC - Eye Exam Eye Exam: EOMI, Normal appearance, PERRL Pupil Exam: NORMAL ACCOMODATION - ENT Exam ENT Exam: Mucous Membranes Moist, Normal Exam - Neck Exam Neck Exam: Full ROM, Normal Inspection - Respiratory Exam Respiratory Exam: Prolonged Expiratory Phase. absent: Rhonchi, Wheezes - Cardiovascular Exam Cardiovascular Exam: Tachycardia, +S1, +S2. absent: JVD - GI/Abdominal Exam GI & Abdominal Exam: Soft, Normal Bowel Sounds. absent: Distended, Guarding, Tenderness, Rebound - Rectal Exam Rectal Exam: Deferred - Extremities Exam Extremities Exam: Full ROM, Normal Capillary Refill, Normal Inspection. absent : Pedal Edema - Back Exam Back Exam: NORMAL INSPECTION - Neurological Exam Neurological Exam: Alert, Awake, CN II-XII Intact, Oriented x3 - Psychiatric Exam Psychiatric exam: Normal Affect - Skin Skin Exam: Dry, Intact, Pallor, Warm Additional comments: Sacral and upper buttock Stage I, 2 right medial upper buttock Stage III, 2 stage II right lower back Assessment and Plan - Assessment and Plan (Free Text) Assessment: 82 y/o Female, well known to our service from previous multiple admissions, Hx of CAD, CHF, COPD , [facility] . Found to be hypotensive on admission. CT of chest showed Progressive consolidative changes/ atelectasis primarily affecting the left lower lobe. patient was admitted with diagnosis of sepsis and started on IV antibiotics.Pulmonary and ID were consulted Her urine cx reported positive for E. Coli and blood cx positive for corynobacter species Patient developed acute on chronic respiratory failure with hypoxemia and hypercapnia due walker COPD and CHF exacerbation . She was placed on High Flow O2 via NC Slowly improving. Today on High flow 20 lpm FIO2 50 % , improving 1. Sepsis secondary to Nosocomial left upper/lower lobe pneumonia, bacteremia and UTI Pt was hypotensive on admission, with leukocytosis, tachycardia urine cx positive for E. Coli Blood cx positive for Corynobacter species CXR showed LLL infiltrtae ID on consult continue Meropenem and vancomycin 2. Acute on Chronic Respiratory Failure Hypoxic, herpercapneic , on Home Oxygen sec to COPD and CHF plus PNA and Mucus plugging Improving slowly on high flow O2 pulmonary on consult .Case discussed decreased High flow to 20 LPM / FIO2 50 % Continue lasix, duonebs, IV antibiotics and Solumedrol peg Solumedrol to 30 mg daily 3.Acute on Chronic CHF, systolic and diastolic dysfunction, with minimally elevated troponin ECHO done last year showed EF 35%. Repeat Echo on previous admission showed normal EF Restarted Lasix Continue ARB and verapamil no BB due to COPD 4. COPD exacerbation peg IV Solumedrol to 30 mg IV daily Pulm onary on consult On High Flow cont Albuterol neb tx with Mucomyst 5. UTI Urine c/s : ESBL E coli previous cultures showed ESBL E coli - ? colonization vs infection on Meropenem as per ID 6. Troponin Elevation likely due to demand ischemia due to Sepsis Troponin now normal had elevated Trop on previous admission cont ASA LDL normal on previous admission no BB sec to COPD 7.Anemia of chronic disease Stable Hgn 95 8. Mucus Plugging post obstructive atelectasis seen on CT on Mucomyst Chest Physiotherapy 9. 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 DM type II with hyperglycemia hyperglycemia due to steroids Accucheck with coverage Increased Levemir to 18 units hs 11.Anxiety and depression stable on Temazepam and trazodone 12. Chronic pain on lidoderm patch to lower back, tramadol 13. DVT prophylaxis Lovenox
--- NOTE | 2017-12-13 14:02 | CP.PCM.PN ---
Subjective - Date & Time of Evaluation Date of Evaluation: 12/13/17 Time of Evaluation: 07:00 - Subjective Subjective: improving slowly iv rx in progress Objective - Vital Signs/Intake and Output Vital Signs (last 24 hours): Temp Pulse Resp BP Pulse Ox 97.8 F 93 H 20 110/66 100 12/13/17 12:23 12/13/17 12:23 12/13/17 13:00 12/13/17 12:23 12/13/17 12:23 - Medications Medications: Current Medications Acetaminophen (Tylenol 325mg Tab) 650 mg PO Q4H PRN PRN Reason: Pain, Mild (1-3) Last Admin: 12/13/17 01:31 Dose: 650 mg Acetaminophen (Tylenol 325mg Tab) 650 mg PO Q4H PRN PRN Reason: Temp >100 Acetaminophen/Codeine Phosphate (Tylenol/Codeine 300 Mg/30 Mg) 1 tab PO Q8 PRN PRN Reason: Pain, moderate (4-7) Last Admin: 12/09/17 04:40 Dose: 1 tab Acetylcysteine (Mucomyst 20% Inhal Ro (10ml)) 2 ml IH RBID [facility] Last Admin: 12/12/17 19:10 Dose: Not Given Al Hydrox/Mg Hydrox/Simethicone (Maalox Plus 30 Ml) 30 ml PO Q4H PRN PRN Reason: heartburn/indigestion Albuterol Sulfate (Albuterol 0.083% Inhal Ro (2.5 Mg/3 Ml) Ud) 2.5 mg INH RQ4 PRN PRN Reason: Shortness of Breath Last Admin: 12/12/17 04:52 Dose: 2.5 mg Albuterol/Ipratropium (Duoneb 3 Mg/0.5 Mg (3 Ml) Ud) 3 ml INH RQID [facility] Last Admin: 12/13/17 11:50 Dose: 3 ml Aspirin (Ecotrin) 81 mg PO DAILY [facility] Last Admin: 12/13/17 09:47 Dose: 81 mg Calcium Carbonate (Oscal) 500 mg PO BID [facility] Last Admin: 12/13/17 09:46 Dose: 500 mg Enoxaparin Sodium (Lovenox) 40 mg SC QPM [facility] PRN Reason: Protocol Last Admin: 12/12/17 17:23 Dose: 40 mg Furosemide (Lasix) 40 mg PO BID [facility] Last Admin: 12/13/17 09:46 Dose: 40 mg Vancomycin HCl 1 gm/ Sodium (Chloride) 250 mls @ 166.667 mls/hr IVPB DAILY [facility] PRN Reason: Protocol Last Admin: 12/13/17 09:50 Dose: 166.667 mls/hr Meropenem 500 mg/ Sodium (Chloride) 100 mls @ 100 mls/hr IVPB Q8 [facility] PRN Reason: Protocol Last Admin: 12/13/17 09:43 Dose: 100 mls/hr Methylprednisolone 20 mg/ (Sodium Chloride) 50 mls @ 100 mls/hr IV DAILY [facility] Insulin Detemir (Levemir) 18 units SC HS [facility] Last Admin: 12/12/17 22:17 Dose: 18 u Insulin Human Regular (Humulin R) 0 units SC ACCU-CHECK [facility] PRN Reason: Protocol Last Admin: 12/13/17 12:34 Dose: 2 units Lidocaine (Lidoderm) 1 ea TD DAILY [facility] Last Admin: 12/13/17 09:47 Dose: 1 ea Magnesium Hydroxide (Milk Of Magnesia) 30 ml PO DAILY PRN PRN Reason: Constipation Montelukast Sodium (Singulair) 10 mg PO HS [facility] Last Admin: 12/12/17 21:14 Dose: 10 mg Multivitamins/Minerals (Therapeutic-M Tab) 1 tab PO DAILY [facility] Last Admin: 12/13/17 09:47 Dose: 1 tab Pantoprazole Sodium (Protonix Ec Tab) 40 mg PO DAILY [facility] Last Admin: 12/13/17 09:47 Dose: 40 mg Silver Sulfadiazine (Silvadene 1% 20 Gm) 1 ea TOP QSHIFT [facility] Tramadol HCl (Ultram) 50 mg PO Q8H PRN PRN Reason: Pain, moderate (4-7) Last Admin: 12/10/17 00:27 Dose: 50 mg Valsartan (Diovan) 80 mg PO DAILY [facility] Last Admin: 12/13/17 09:46 Dose: 80 mg Verapamil HCl (Calan Sr Tab) 240 mg PO DAILY [facility] Last Admin: 12/13/17 09:46 Dose: 240 mg - Labs Labs: 12/13/17 09:45 12/13/17 09:45 - Constitutional Appears: Non-toxic, Chronically Ill - Head Exam Head Exam: NORMOCEPHALIC - Eye Exam Eye Exam: PERRL - ENT Exam ENT Exam: Mucous Membranes Dry - Neck Exam Neck Exam: absent: Lymphadenopathy - Respiratory Exam Respiratory Exam: Decreased Breath Sounds - Cardiovascular Exam Cardiovascular Exam: REGULAR RHYTHM - GI/Abdominal Exam GI & Abdominal Exam: Distended - Rectal Exam Rectal Exam: Deferred - Exam Exam: NORMAL INSPECTION - Extremities Exam Extremities Exam: absent: Pedal Edema - Back Exam Back Exam: absent: CVA tenderness (L), CVA tenderness (R) Assessment and Plan (1) Pneumonia Status: Acute (2) Dehydration Status: Acute (3) Diabetes Status: Acute (4) ESBL (extended spectrum beta-lactamase) producing bacteria infection Status: Acute
[2017-12-13] MEDS: Enoxaparin 40 mg Syringe SC SCH (17:03)
[2017-12-13] MEDS: Acetylcysteine 20% Inhal Soln (10ml) IH SCH (20:16)
[2017-12-13] MEDS: Insulin Detemir 100 Units/ml Inj SC SCH (22:17)
[2017-12-14] MEDS: Meropenem 500 MG in Sodium Chloride 0.9% 100 ML IVPB SCH ×3 (01:05→17:00)
[2017-12-14 06:18] LABS: HEMOGLOBIN 10.9 g/dL (12.0-16.0); MEAN CELL VOLUME 92.9 fl (81.0-99.0); MEAN CORPUSCULAR HEMOGLOBIN 30.2 pg (27.0-31.0); MEAN CORPUSCULAR HGB CONC 32.5 g/dL (33.0-37.0); RBC 3.62 Mil/uL (3.80-5.20); RED CELL DISTRIBUTION WIDTH 16.4 % (11.5-14.5); WHITE BLOOD COUNT 8.3 K/uL (4.8-10.8)
[2017-12-14 06:28] LABS: BLOOD UREA NITROGEN 29 mg/dl (7-17); CALCIUM 9.2 mg/dL (8.4-10.2); GFR AFRICAN-AMERICAN > 60; GFR NON-AFRICAN AMERICAN > 60
[2017-12-14] MEDS ORDERED: ALENDRONATE 70 MG TAB PO SCH (07:30)
[2017-12-14] MEDS: Albuterol-Ipratrop 3 mg / 0.5 (3 ml) UD INH SCH ×4 (07:52→19:33)
[2017-12-14] MEDS: Acetylcysteine 20% Inhal Soln (10ml) IH SCH (08:30)
[2017-12-14] MEDS ORDERED: methylPREDNISolone 20 MG in Sodium Chloride 0.9% 50 ML IV SCH (09:00)
[2017-12-14] MEDS: Multivitamin With Minerals Tab PO SCH (09:33)
[2017-12-14] MEDS: Pantoprazole 40 mg EC Tab PO SCH (09:33)
[2017-12-14] MEDS: Lidocaine 5% Patch TD SCH (09:33)
[2017-12-14] MEDS: Verapamil 240 mg ER Tab PO SCH (09:34)
[2017-12-14] MEDS: MethylPREDNISolone 40 mg Vial IVP SCH (09:35)
[2017-12-14] MEDS: Insulin Regular 100 units/ml SC SCH ×4 (09:36→22:38)
--- NOTE | 2017-12-14 09:40 | CP.PCM.PN ---
Subjective - Date & Time of Evaluation Date of Evaluation: 12/14/17 Time of Evaluation: 09:34 - Subjective Subjective: Found sitting upin bed this morning, nasal canula NOT connected to O2. SpO2 80% without respiratory distress. Reconnected with increase in SpO2 to 90%. Her vital signs have been stable, but her labs suggest possible contraction alkalosis. She claims to use the CPT device without any sputum expectorated. There is no dependant edema or cyanosis. No calf tenderness or palpable venous cords. Neck is supple and trachea midline. Still has dullness with absent breath sounds in the left base. Remainder of lung knutson with diminished breath sounds, occasional dry rales and no wheezing. Will need ABG today. Follow up chest x-ray. OOB to chair as tolerated. Continued aerosol therapies. Solumedrol decreased to 20MG daily. Objective - Vital Signs/Intake and Output Vital Signs (last 24 hours): Temp Pulse Resp BP Pulse Ox 98.2 F 107 H 18 159/86 H 100 12/14/17 08:00 12/14/17 08:00 12/14/17 08:00 12/14/17 08:00 12/14/17 08:00 Intake and Output: 12/13/17 12/14/17 23:59 11:59 Intake Total 450 Output Total 2000 Balance -1550 - Medications Medications: Current Medications Acetaminophen (Tylenol 325mg Tab) 650 mg PO Q4H PRN PRN Reason: Pain, Mild (1-3) Last Admin: 12/14/17 01:07 Dose: 650 mg Acetaminophen (Tylenol 325mg Tab) 650 mg PO Q4H PRN PRN Reason: Temp >100 Acetaminophen/Codeine Phosphate (Tylenol/Codeine 300 Mg/30 Mg) 1 tab PO Q8 PRN PRN Reason: Pain, moderate (4-7) Last Admin: 12/09/17 04:40 Dose: 1 tab Acetylcysteine (Mucomyst 20% Inhal Ro (10ml)) 2 ml IH RBID [facility] Last Admin: 12/14/17 08:30 Dose: Not Given Al Hydrox/Mg Hydrox/Simethicone (Maalox Plus 30 Ml) 30 ml PO Q4H PRN PRN Reason: heartburn/indigestion Albuterol Sulfate (Albuterol 0.083% Inhal Ro (2.5 Mg/3 Ml) Ud) 2.5 mg INH RQ4 PRN PRN Reason: Shortness of Breath Last Admin: 12/12/17 04:52 Dose: 2.5 mg Albuterol/Ipratropium (Duoneb 3 Mg/0.5 Mg (3 Ml) Ud) 3 ml INH RQID [facility] Last Admin: 12/14/17 07:52 Dose: 3 ml Aspirin (Ecotrin) 81 mg PO DAILY [facility] Last Admin: 12/13/17 09:47 Dose: 81 mg Calcium Carbonate (Oscal) 500 mg PO BID [facility] Last Admin: 12/13/17 17:04 Dose: 500 mg Enoxaparin Sodium (Lovenox) 40 mg SC QPM [facility] PRN Reason: Protocol Last Admin: 12/13/17 17:03 Dose: 40 mg Furosemide (Lasix) 40 mg PO BID [facility] Last Admin: 12/13/17 17:03 Dose: 40 mg Vancomycin HCl 1 gm/ Sodium (Chloride) 250 mls @ 166.667 mls/hr IVPB DAILY [facility] PRN Reason: Protocol Last Admin: 12/13/17 09:50 Dose: 166.667 mls/hr Meropenem 500 mg/ Sodium (Chloride) 100 mls @ 100 mls/hr IVPB Q8 [facility] PRN Reason: Protocol Last Admin: 12/14/17 01:05 Dose: 100 mls/hr Insulin Detemir (Levemir) 18 units SC [facility] Last Admin: 12/13/17 22:17 Dose: 18 u Insulin Human Regular (Humulin R) 0 units SC ACCU-CHECK [facility] PRN Reason: Protocol Last Admin: 12/13/17 22:16 Dose: 4 units Lidocaine (Lidoderm) 1 ea TD DAILY [facility] Last Admin: 12/13/17 09:47 Dose: 1 ea Magnesium Hydroxide (Milk Of Magnesia) 30 ml PO DAILY [facility] PRN Reason: Constipation Methylprednisolone (Solu-Medrol) 20 mg IVP DAILY [facility] Montelukast Sodium (Singulair) 10 mg PO HS [facility] Last Admin: 12/13/17 22:17 Dose: 10 mg Multivitamins/Minerals (Therapeutic-M Tab) 1 tab PO DAILY [facility] Last Admin: 12/13/17 09:47 Dose: 1 tab Pantoprazole Sodium (Protonix Ec Tab) 40 mg PO DAILY [facility] Last Admin: 12/13/17 09:47 Dose: 40 mg Silver Sulfadiazine (Silvadene 1% 20 Gm) 1 ea TOP QSHIFT [facility] Tramadol HCl (Ultram) 50 mg PO Q8H PRN PRN Reason: Pain, moderate (4-7) Last Admin: 12/10/17 00:27 Dose: 50 mg Valsartan (Diovan) 80 mg PO DAILY [facility] Last Admin: 12/13/17 09:46 Dose: 80 mg Verapamil HCl (Calan Sr Tab) 240 mg PO DAILY [facility] Last Admin: 12/13/17 09:46 Dose: 240 mg - Labs Labs: 12/14/17 05:40 12/14/17 05:40 Assessment and Plan (1) Hypercapnic respiratory failure, chronic Status: Chronic (2) Atelectasis, left Status: Acute (3) COPD (chronic obstructive pulmonary disease) Status: Chronic
--- NOTE | 2017-12-14 10:58 | RAD ---
HISTORY: pneumonia COMPARISON: Comparison made with prior chest radiograph 12/08/2017 FINDINGS: LUNGS: Complete opacification left tram thorax volume loss and secondary shift of the mediastinum from [id number]. Suspect minor right basilar atelectasis. Re- demonstrated are chain sutures in the right lateral upper/mid lung field. PLEURA: No significant pleural effusion identified, no pneumothorax apparent. CARDIOVASCULAR: Normal. OSSEOUS STRUCTURES: No significant abnormalities. VISUALIZED UPPER ABDOMEN: Normal. OTHER FINDINGS: None. IMPRESSION: Complete opacification left tram thorax volume loss and secondary shift of the mediastinum from [id number]. Suspect minor right basilar atelectasis. Re- demonstrated are chain sutures in the right lateral upper/mid lung field. Findings discussed with nurse Quintanilla at approximately 10:49 a.m. with written down and read back verification.
[2017-12-14] MEDS: Potassium CL 10 MEQ/50 ML 50 ML IVPB SCH ×2 (13:57→16:58)
[2017-12-14 15:33] LABS: INR 0.9 (0.9-1.2); PARTIAL THROMBOPLASTIN TIME 27.7 Seconds (25.6-37.1); PROTHROMBIN TIME 10.3 Seconds (9.8-13.1)
[2017-12-14] MEDS: Acetylcysteine 20% Inhal Soln (4ml) PO SCH ×2 (17:49→20:49)
--- NOTE | 2017-12-14 20:09 | CP.PCM.PN ---
Subjective - Date & Time of Evaluation Date of Evaluation: 12/14/17 Time of Evaluation: 09:30 - Subjective Subjective: Patient was seen and examined bedside. Elderly female of stated age sitting in bed in upright position with 3 L O2 via NC saturating well in no significant respiratory distress. With baseline dyspnea and prolonged expiratory phase with no accessory muscle use. With some weak coughing spells, unable to expectorate anything . CXR today shows total opacification of left hemithorax BP stable, tachycardic ,afebrile No acute issues overnight Feeling weak WBC 8 K Hgb 10 CO2 45 Objective - Vital Signs/Intake and Output Vital Signs (last 24 hours): Temp Pulse Resp BP Pulse Ox 98.8 F 105 H 20 106/66 97 12/14/17 16:49 12/14/17 16:49 12/14/17 16:49 12/14/17 16:58 12/14/17 16:49 Intake and Output: 12/14/17 12/15/17 18:59 06:59 Intake Total 470 Output Total 1100 Balance -630 - Medications Medications: Current Medications Acetaminophen (Tylenol 325mg Tab) 650 mg PO Q4H PRN PRN Reason: Pain, Mild (1-3) Last Admin: 12/14/17 18:07 Dose: 650 mg Acetaminophen (Tylenol 325mg Tab) 650 mg PO Q4H PRN PRN Reason: Temp >100 Acetaminophen/Codeine Phosphate (Tylenol/Codeine 300 Mg/30 Mg) 1 tab PO Q8 PRN PRN Reason: Pain, moderate (4-7) Last Admin: 12/09/17 04:40 Dose: 1 tab Acetylcysteine (Acetylcysteine 20%) 3 ml PO RBID [facility] Stop: 12/15/17 20:01 Al Hydrox/Mg Hydrox/Simethicone (Maalox Plus 30 Ml) 30 ml PO Q4H PRN PRN Reason: heartburn/indigestion Albuterol Sulfate (Albuterol 0.083% Inhal Ro (2.5 Mg/3 Ml) Ud) 2.5 mg INH RQ4 PRN PRN Reason: Shortness of Breath Last Admin: 12/12/17 04:52 Dose: 2.5 mg Albuterol/Ipratropium (Duoneb 3 Mg/0.5 Mg (3 Ml) Ud) 3 ml INH RQID [facility] Last Admin: 12/14/17 19:33 Dose: 3 ml Aspirin (Ecotrin) 81 mg PO DAILY [facility] Last Admin: 12/14/17 09:34 Dose: 81 mg Calcium Carbonate (Oscal) 500 mg PO BID [facility] Last Admin: 12/14/17 16:58 Dose: 500 mg Enoxaparin Sodium (Lovenox) 40 mg SC QPM [facility] PRN Reason: Protocol Last Admin: 12/13/17 17:03 Dose: 40 mg Furosemide (Lasix) 40 mg PO BID [facility] Last Admin: 12/14/17 16:58 Dose: 40 mg Vancomycin HCl 1 gm/ Sodium (Chloride) 250 mls @ 166.667 mls/hr IVPB DAILY [facility] PRN Reason: Protocol Last Admin: 12/14/17 09:30 Dose: 166.667 mls/hr Meropenem 500 mg/ Sodium (Chloride) 100 mls @ 100 mls/hr IVPB Q8 [facility] PRN Reason: Protocol Last Admin: 12/14/17 17:00 Dose: 100 mls/hr Insulin Detemir (Levemir) 18 units SC [facility] Last Admin: 12/13/17 22:17 Dose: 18 u Insulin Human Regular (Humulin R) 0 units SC ACCU-CHECK [facility] PRN Reason: Protocol Last Admin: 12/14/17 17:10 Dose: 3 units Lidocaine (Lidoderm) 1 ea TD DAILY [facility] Last Admin: 12/14/17 09:33 Dose: 1 ea Magnesium Hydroxide (Milk Of Magnesia) 30 ml PO DAILY PRN PRN Reason: Constipation Methylprednisolone (Solu-Medrol) 20 mg IVP DAILY [facility] Last Admin: 12/14/17 09:35 Dose: 20 mg Montelukast Sodium (Singulair) 10 mg PO HS [facility] Last Admin: 12/13/17 22:17 Dose: 10 mg Multivitamins/Minerals (Therapeutic-M Tab) 1 tab PO DAILY [facility] Last Admin: 12/14/17 09:33 Dose: 1 tab Pantoprazole Sodium (Protonix Ec Tab) 40 mg PO DAILY [facility] Last Admin: 12/14/17 09:33 Dose: 40 mg Silver Sulfadiazine (Silvadene 1% 20 Gm) 1 ea TOP QSHIFT [facility] Tramadol HCl (Ultram) 50 mg PO Q8H PRN PRN Reason: Pain, moderate (4-7) Last Admin: 12/10/17 00:27 Dose: 50 mg Valsartan (Diovan) 80 mg PO DAILY [facility] Last Admin: 12/14/17 09:32 Dose: 80 mg Verapamil HCl (Calan Sr Tab) 240 mg PO DAILY [facility] Last Admin: 12/14/17 09:34 Dose: 240 mg - Labs Labs: 12/14/17 05:40 12/14/17 05:40 PT 10.3 Seconds (9.8-13.1) 12/14/17 15:08 INR 0.9 (0.9-1.2) 12/14/17 15:08 APTT 27.7 Seconds (25.6-37.1) 12/14/17 15:08 - Constitutional Appears: Non-toxic, No Acute Distress, Chronically Ill, Other (elderly ) - Head Exam Head Exam: ATRAUMATIC, NORMOCEPHALIC - Eye Exam Eye Exam: PERRL Pupil Exam: NORMAL ACCOMODATION - ENT Exam ENT Exam: Mucous Membranes Moist, Normal Exam - Neck Exam Neck Exam: Full ROM, Normal Inspection - Respiratory Exam Respiratory Exam: Decreased Breath Sounds (to left hemithorax ), Prolonged Expiratory Phase. absent: Rhonchi, Wheezes - Cardiovascular Exam Cardiovascular Exam: Tachycardia, REGULAR RHYTHM, +S1, +S2. absent: JVD - GI/Abdominal Exam GI & Abdominal Exam: Soft, Normal Bowel Sounds. absent: Distended, Guarding, Tenderness, Rebound - Rectal Exam Rectal Exam: Deferred - Extremities Exam Extremities Exam: Full ROM, Normal Capillary Refill, Normal Inspection. absent : Calf Tenderness, Pedal Edema - Back Exam Back Exam: NORMAL INSPECTION - Neurological Exam Neurological Exam: Alert, Awake, CN II-XII Intact, Oriented x3 - Psychiatric Exam Psychiatric exam: Normal Affect - Skin Skin Exam: Dry, Pallor, Warm Additional comments: sacral and upper buttock Stage I, 2 right medial upper buttock Stage III, 2 stage II right lower back Assessment and Plan - Assessment and Plan (Free Text) Assessment: 82 y/o Female, well known to our service from previous multiple admissions, Hx of CAD, CHF, COPD , sent from [facility] of fever , cough . Found to be hypotensive on admission. CT of chest showed Progressive consolidative changes/ atelectasis primarily affecting the left lower lobe. patient was admitted with diagnosis of sepsis and started on IV antibiotics.Pulmonary and ID were consulted Her urine cx reported positive for E. Coli and blood cx positive for corynobacter species Patient developed acute on chronic respiratory failure with hypoxemia and hypercapnia due to COPD and CHF exacerbation . She was placed on High Flow O2 via NC and improving slowly . placed on 3 L O2 via nC and has good saturations CXR repeated today showed opacification of left hemithorax due to mucus plug CO2 45 1. Mucus Plugging with total opacification of left hemithorax CXR today showed total wghite out left hemithorax With weak cough unable to expectorate on Mucomyst INH Chest Physiotherapy Pulmonary on consult . For bronchoscopy in AM 2. Sepsis secondary to Nosocomial left upper/lower lobe pneumonia, bacteremia and UTI Pt was hypotensive on admission, with leukocytosis, tachycardia urine cx positive for E. Coli Blood cx positive for Corynobacter species CXR showed LLL infiltrate ID on consult continue Meropenem and vancomycin 3. Acute on Chronic Respiratory Failure Hypoxic, herpercapneic , on Home Oxygen sec to COPD and CHF plus PNA and Mucus plugging saturating well on 3 LO2 via NC despite CXR showing white out of left hemithorax today pulmonary on consult .Case discussed. For bronchoscopy in AM ContinUe O2 vi anC' Mycomyst INH On Solumedrol 20 Mg IV Continue lasix, duonebs, IV antibiotics 4.Acute on Chronic CHF, systolic and diastolic dysfunction, with minimally elevated troponin ECHO done last year showed EF 35%. Repeat Echo on previous admission showed normal EF on Lasix ,ARB and verapamil no BB due to COPD 5. COPD exacerbation tappered IV Solumedrol to 20 mg IV daily Pulmonary on consult On 3 L O2 via NC cont Albuterol neb tx with Mucomyst 6. UTI Urine c/s : ESBL E coli previous cultures showed ESBL E coli - ? colonization vs infection on Meropenem as per ID 7. Troponin Elevation likely due to demand ischemia due to Sepsis Troponin now normal had elevated Trop on previous admission cont ASA LDL normal on previous admission no BB sec to COPD 8.Anemia of chronic disease Stable 9. 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 DM type II with hyperglycemia hyperglycemia due to steroids Accucheck with coverage on Levemir to 18 units hs 11.Anxiety and depression stable on Temazepam and trazodone 12. Chronic pain on lidoderm patch to lower back, tramadol 13. DVT prophylaxis hold lovenox for bronchoscopy in AM
[2017-12-14] MEDS: Insulin Detemir 100 Units/ml Inj SC SCH (22:37)
[2017-12-15] MEDS: Meropenem 500 MG in Sodium Chloride 0.9% 100 ML IVPB SCH ×3 (00:16→16:59)
[2017-12-15] MEDS ORDERED: Dextrose 50% SYRINGE Inj (50 ml) IVP ONE (05:52)
[2017-12-15 06:06] LABS: HEMOGLOBIN 11.4 g/dL (12.0-16.0); MEAN CELL VOLUME 92.9 fl (81.0-99.0); MEAN CORPUSCULAR HEMOGLOBIN 30.9 pg (27.0-31.0); MEAN CORPUSCULAR HGB CONC 33.2 g/dL (33.0-37.0); RBC 3.68 Mil/uL (3.80-5.20); RED CELL DISTRIBUTION WIDTH 16.5 % (11.5-14.5); WHITE BLOOD COUNT 7.9 K/uL (4.8-10.8)
[2017-12-15] MEDS: Insulin Regular 100 units/ml SC SCH ×4 (06:25→22:55)
[2017-12-15 06:45] LABS: BLOOD UREA NITROGEN 23 mg/dl (7-17); CALCIUM 9.7 mg/dL (8.4-10.2); GFR AFRICAN-AMERICAN > 60; GFR NON-AFRICAN AMERICAN > 60
[2017-12-15] MEDS: Albuterol-Ipratrop 3 mg / 0.5 (3 ml) UD INH SCH ×4 (07:45→19:40)
[2017-12-15] MEDS: Acetylcysteine 20% Inhal Soln (4ml) INH SCH ×2 (07:46→19:40)
[2017-12-15] MEDS ORDERED: EPINEPHrine 1 mg/ml (1:1000) Inj ONE (08:22)
[2017-12-15] MEDS ORDERED: Lidocaine 1% Inj (20ml) ONE (08:22)
[2017-12-15] MEDS ORDERED: Lidocaine 2% Jelly (5 ml) TOP ONE (08:23)
[2017-12-15] MEDS: Verapamil 240 mg ER Tab PO SCH (08:33)
[2017-12-15] MEDS: Multivitamin With Minerals Tab PO SCH (08:35)
[2017-12-15] MEDS: MethylPREDNISolone 40 mg Vial IVP SCH (08:39)
[2017-12-15] MEDS: Potassium CL 10 MEQ/50 ML 50 ML IVPB SCH ×3 (09:00→11:44)
[2017-12-15 09:22] LABS: ABG ALLEN TEST YES; ARTERIAL BLOOD GAS HCO3 44.6 mmol/L (21-28); ARTERIAL BLOOD GAS HEMOGLOBIN 11.8 g/dL (11.7-17.4); ARTERIAL BLOOD GAS O2 CAPACITY 16.1 mL/dL (16-24); ARTERIAL BLOOD GAS O2 CONTENT 15.4 ML/dL (15-23); ARTERIAL BLOOD GAS O2 SAT 95.6 % (95-98); ARTERIAL BLOOD GAS PCO2 59 mm/Hg (35-45); ARTERIAL BLOOD GAS PH 7.55 (7.35-7.45); ARTERIAL BLOOD GAS PO2 63 mm/Hg (80-100); ARTERIAL BLOOD GAS TCO2 53.4 mmol/L (22-28)
--- NOTE | 2017-12-15 09:47 | CP.PCM.PN ---
Subjective - Date & Time of Evaluation Date of Evaluation: 12/15/17 Time of Evaluation: 09:43 - Subjective Subjective: Labs reviewed. Metabolic alkalosis, hypokalemia. Started IV potassium replacement. Bronchoscopy temporarily postponed. Nephrology consult requested. Somnolent, awakens temporarily. Follows simple commands. Breath sounds are still present on the right. Bronchial breathing on the left. No audible wheezing. No cyanosis. Able to cough with coaching, but non-productive. ABG requested. K replacement started. Nephrolgy consult requested. Objective - Vital Signs/Intake and Output Vital Signs (last 24 hours): Temp Pulse Resp BP Pulse Ox 97.6 F 99 H 18 172/85 H 94 L 12/15/17 08:48 12/15/17 08:48 12/15/17 08:48 12/15/17 08:48 12/15/17 08:48 Intake and Output: 12/14/17 12/15/17 23:59 11:59 Intake Total 470 150 Output Total 1100 1650 Balance -630 -1500 - Medications Medications: Current Medications Acetaminophen (Tylenol 325mg Tab) 650 mg PO Q4H PRN PRN Reason: Pain, Mild (1-3) Last Admin: 12/14/17 18:07 Dose: 650 mg Acetaminophen (Tylenol 325mg Tab) 650 mg PO Q4H PRN PRN Reason: Temp >100 Acetylcysteine (Acetylcysteine 20%) 3 ml INH RBID [facility] Stop: 12/16/17 08:01 Last Admin: 12/15/17 07:46 Dose: 3 ml Al Hydrox/Mg Hydrox/Simethicone (Maalox Plus 30 Ml) 30 ml PO Q4H PRN PRN Reason: heartburn/indigestion Albuterol Sulfate (Albuterol 0.083% Inhal Ro (2.5 Mg/3 Ml) Ud) 2.5 mg INH RQ4 PRN PRN Reason: Shortness of Breath Last Admin: 12/12/17 04:52 Dose: 2.5 mg Albuterol/Ipratropium (Duoneb 3 Mg/0.5 Mg (3 Ml) Ud) 3 ml INH RQID [facility] Last Admin: 12/15/17 07:45 Dose: 3 ml Aspirin (Ecotrin) 81 mg PO DAILY [facility] Last Admin: 12/15/17 08:33 Dose: Not Given Calcium Carbonate (Oscal) 500 mg PO BID [facility] Last Admin: 12/15/17 08:34 Dose: Not Given Enoxaparin Sodium (Lovenox) 40 mg SC QPM [facility] PRN Reason: Protocol Last Admin: 12/13/17 17:03 Dose: 40 mg Furosemide (Lasix) 40 mg PO BID [facility] Last Admin: 12/15/17 08:34 Dose: Not Given Vancomycin HCl 1 gm/ Sodium (Chloride) 250 mls @ 166.667 mls/hr IVPB DAILY [facility] PRN Reason: Protocol Last Admin: 12/14/17 09:30 Dose: 166.667 mls/hr Meropenem 500 mg/ Sodium (Chloride) 100 mls @ 100 mls/hr IVPB Q8 [facility] PRN Reason: Protocol Last Admin: 12/15/17 08:38 Dose: 100 mls/hr Potassium Chloride (Potassium Cl 10meq/50ml Sterile Water) 50 mls @ 50 mls/hr IVPB Q1 [facility] Stop: 12/15/17 11:59 Insulin Detemir (Levemir) 18 units SC [facility] Last Admin: 12/14/17 22:37 Dose: 18 u Insulin Human Regular (Humulin R) 0 units SC ACCU-CHECK [facility] PRN Reason: Protocol Last Admin: 12/15/17 06:25 Dose: Not Given Lidocaine (Lidoderm) 1 ea TD DAILY [facility] Last Admin: 12/14/17 09:33 Dose: 1 ea Magnesium Hydroxide (Milk Of Magnesia) 30 ml PO DAILY PRN PRN Reason: Constipation Methylprednisolone (Solu-Medrol) 20 mg IVP DAILY [facility] Last Admin: 12/15/17 08:39 Dose: 20 mg Montelukast Sodium (Singulair) 10 mg PO HS [facility] Last Admin: 12/14/17 22:37 Dose: 10 mg Multivitamins/Minerals (Therapeutic-M Tab) 1 tab PO DAILY [facility] Last Admin: 12/15/17 08:35 Dose: Not Given Pantoprazole Sodium (Protonix Ec Tab) 40 mg PO DAILY [facility] Last Admin: 12/14/17 09:33 Dose: 40 mg Silver Sulfadiazine (Silvadene 1% 20 Gm) 1 ea TOP QSHIFT [facility] Tramadol HCl (Ultram) 50 mg PO Q8H PRN PRN Reason: Pain, moderate (4-7) Last Admin: 12/10/17 00:27 Dose: 50 mg Valsartan (Diovan) 80 mg PO DAILY [facility] Last Admin: 12/15/17 08:33 Dose: 80 mg Verapamil HCl (Calan Sr Tab) 240 mg PO DAILY [facility] Last Admin: 12/15/17 08:33 Dose: 240 mg - Labs Labs: 12/15/17 04:20 12/15/17 04:20 PT 10.3 Seconds (9.8-13.1) 12/14/17 15:08 INR 0.9 (0.9-1.2) 12/14/17 15:08 APTT 27.7 Seconds (25.6-37.1) 12/14/17 15:08 Assessment and Plan (1) Hypercapnic respiratory failure, chronic Status: Chronic (2) Atelectasis, left Status: Acute (3) COPD (chronic obstructive pulmonary disease) Status: Chronic
--- NOTE | 2017-12-15 10:38 | CP.PCM.PN ---
Subjective - Date & Time of Evaluation Date of Evaluation: 12/15/17 Time of Evaluation: 10:00 - Subjective Subjective: Noted pt to be tachypneic, in mild distress while on 3 Liter O2 per NC no fever Bronchoscopy cancelled - rescheduled for tomorrow due to HypoKalemia of 2.6 Pt denies CP has occ cough no abd pain Objective - Vital Signs/Intake and Output Vital Signs (last 24 hours): Temp Pulse Resp BP Pulse Ox 97.6 F 99 H 18 172/85 H 94 L 12/15/17 08:48 12/15/17 08:48 12/15/17 08:48 12/15/17 08:48 12/15/17 08:48 Intake and Output: 12/15/17 12/15/17 06:59 18:59 Intake Total 150 Output Total 1650 Balance -1650 150 - Medications Medications: Current Medications Acetaminophen (Tylenol 325mg Tab) 650 mg PO Q4H PRN PRN Reason: Pain, Mild (1-3) Last Admin: 12/14/17 18:07 Dose: 650 mg Acetaminophen (Tylenol 325mg Tab) 650 mg PO Q4H PRN PRN Reason: Temp >100 Acetylcysteine (Acetylcysteine 20%) 3 ml INH RBID [facility] Stop: 12/16/17 08:01 Last Admin: 12/15/17 07:46 Dose: 3 ml Al Hydrox/Mg Hydrox/Simethicone (Maalox Plus 30 Ml) 30 ml PO Q4H PRN PRN Reason: heartburn/indigestion Albuterol Sulfate (Albuterol 0.083% Inhal Ro (2.5 Mg/3 Ml) Ud) 2.5 mg INH RQ4 PRN PRN Reason: Shortness of Breath Last Admin: 12/12/17 04:52 Dose: 2.5 mg Albuterol/Ipratropium (Duoneb 3 Mg/0.5 Mg (3 Ml) Ud) 3 ml INH RQID [facility] Last Admin: 12/15/17 07:45 Dose: 3 ml Aspirin (Ecotrin) 81 mg PO DAILY [facility] Last Admin: 12/15/17 08:33 Dose: Not Given Calcium Carbonate (Oscal) 500 mg PO BID [facility] Last Admin: 12/15/17 08:34 Dose: Not Given Dimethicone (Proshield Plus Skin Protectant) 1 applic TOP Q8 [facility] Enoxaparin Sodium (Lovenox) 40 mg SC QPM [facility] PRN Reason: Protocol Last Admin: 12/13/17 17:03 Dose: 40 mg Furosemide (Lasix) 40 mg PO BID [facility] Last Admin: 12/15/17 08:34 Dose: Not Given Vancomycin HCl 1 gm/ Sodium (Chloride) 250 mls @ 166.667 mls/hr IVPB DAILY [facility] PRN Reason: Protocol Last Admin: 12/14/17 09:30 Dose: 166.667 mls/hr Meropenem 500 mg/ Sodium (Chloride) 100 mls @ 100 mls/hr IVPB Q8 [facility] PRN Reason: Protocol Last Admin: 12/15/17 08:38 Dose: 100 mls/hr Potassium Chloride (Potassium Cl 10meq/50ml Sterile Water) 50 mls @ 50 mls/hr IVPB Q1 [facility] Stop: 12/15/17 11:59 Insulin Detemir (Levemir) 18 units SC HS [facility] Last Admin: 12/14/17 22:37 Dose: 18 u Insulin Human Regular (Humulin R) 0 units SC ACCU-CHECK [facility] PRN Reason: Protocol Last Admin: 12/15/17 06:25 Dose: Not Given Lidocaine (Lidoderm) 1 ea TD DAILY [facility] Last Admin: 12/14/17 09:33 Dose: 1 ea Magnesium Hydroxide (Milk Of Magnesia) 30 ml PO DAILY PRN PRN Reason: Constipation Methylprednisolone (Solu-Medrol) 20 mg IVP DAILY [facility] Last Admin: 12/15/17 08:39 Dose: 20 mg Montelukast Sodium (Singulair) 10 mg PO HS [facility] Last Admin: 12/14/17 22:37 Dose: 10 mg Multivitamins/Minerals (Therapeutic-M Tab) 1 tab PO DAILY [facility] Last Admin: 12/15/17 08:35 Dose: Not Given Pantoprazole Sodium (Protonix Ec Tab) 40 mg PO DAILY [facility] Last Admin: 12/14/17 09:33 Dose: 40 mg Silver Sulfadiazine (Silvadene 1% 20 Gm) 1 ea TOP QSHIFT [facility] Tramadol HCl (Ultram) 50 mg PO Q8H PRN PRN Reason: Pain, moderate (4-7) Last Admin: 12/10/17 00:27 Dose: 50 mg Valsartan (Diovan) 80 mg PO DAILY [facility] Last Admin: 12/15/17 08:33 Dose: 80 mg Verapamil HCl (Calan Sr Tab) 240 mg PO DAILY [facility] Last Admin: 12/15/17 08:33 Dose: 240 mg - Labs Labs: 12/15/17 04:20 12/15/17 04:20 PT 10.3 Seconds (9.8-13.1) 12/14/17 15:08 INR 0.9 (0.9-1.2) 12/14/17 15:08 APTT 27.7 Seconds (25.6-37.1) 12/14/17 15:08 - Constitutional Appears: No Acute Distress, Chronically Ill - Head Exam Head Exam: NORMAL INSPECTION, NORMOCEPHALIC - Eye Exam Eye Exam: EOMI, Normal appearance Pupil Exam: NORMAL ACCOMMODATION - ENT Exam ENT Exam: Mucous Membranes Dry, Normal External Ear Exam - Neck Exam Neck Exam: Full ROM. absent: Meningismus - Respiratory Exam Respiratory Exam: Tachypneic ,Rales, Rhonchi. minimal Wheeze, No Respiratory Distress - Cardiovascular Exam Cardiovascular Exam: REGULAR RHYTHM, +S1, +S2 - GI/Abdominal Exam GI & Abdominal Exam: Distended, Soft, Normal Bowel Sounds. absent: Tenderness - Extremities Exam Extremities Exam: Normal Capillary Refill. absent: Calf Tenderness, Joint Swelling - Neurological Exam Neurological Exam: Awake Neuro motor strength exam: Left Upper Extremity: 4, Right Upper Extremity: 4, Left Lower Extremity: 4, Right Lower Extremity: 4 Additional comments: oriented to person and place - Psychiatric Exam Psychiatric exam: Flat Affect - Skin Skin Exam: Dry, Pallor, Warm Assessment and Plan - Assessment and Plan (Free Text) Assessment: 82 y/o Female, well known to our service from previous multiple admissions, Hx of CAD, CHF, COPD , sent from [facility] of fever , cough . Found to be hypotensive on admission. CT of chest showed :Progressive consolidative changes/ atelectasis primarily affecting the left lower lobe. Patient was admitted with diagnosis of sepsis and started on IV antibiotics.Pulmonary and ID were consulted Her urine cx reported positive for E. Coli and blood cx positive for corynobacter species Patient developed acute on chronic respiratory failure with hypoxemia and hypercapnia due to COPD and CHF exacerbation . She was placed on High Flow O2 via NC and improving slowly CXR repeated 12/14 showed opacification of left hemithorax due to mucus plug Today 12/15 : noted pt to be tachypneic while on 3L NC - again placed on High Flow Oxygen at 20L/50% 1. Mucus Plugging with total opacification of left hemithorax CXR showed total white out left hemithorax With weak cough unable to expectorate on Mucomyst INH Chest Physiotherapy Pulmonary on consult . For bronchoscopy in AM 2. Sepsis secondary to Nosocomial left upper/lower lobe pneumonia, bacteremia and UTI Pt was hypotensive on admission, with leukocytosis, tachycardia urine cx positive for E. Coli Blood cx positive for Corynobacter species CXR showed LLL infiltrate ID on consult continue Meropenem and vancomycin 3. Acute on Chronic Respiratory Failure Hypoxic, herpercapneic , on Home Oxygen sec to COPD and CHF plus PNA and Mucus plugging change back to high Flow Oxygen today pulmonary on consult .Case discussed. For bronchoscopy in AM On Solumedrol 20 Mg IV Continue duonebs, IV antibiotics Lasix held today 4.Acute on Chronic CHF, systolic and diastolic dysfunction, with minimally elevated troponin ECHO done last year showed EF 35%. Repeat Echo on previous admission showed normal EF on ARB and verapamil no BB due to COPD Lasix on hold for now 5. COPD exacerbation tapered IV Solumedrol to 20 mg IV daily Pulmonary on consult cont Albuterol neb tx with Mucomyst 6. UTI Urine c/s : ESBL E coli previous cultures showed ESBL E coli - ? colonization vs infection on Meropenem as per ID 7. Troponin Elevation likely due to demand ischemia due to Sepsis Troponin now normal had elevated Trop on previous admission cont ASA LDL normal on previous admission no BB sec to COPD 8.Anemia of chronic disease Stable 9. 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 DM type II with hyperglycemia hyperglycemia due to steroids Accucheck with coverage on Levemir to 18 units hs 11.Anxiety and depression stable on Temazepam and trazodone 12. Chronic pain on lidoderm patch to lower back, tramadol 13. DVT prophylaxis hold lovenox for bronchoscopy in AM
[2017-12-15] MEDS: Lidocaine 5% Patch TD SCH (10:47)
[2017-12-15] MEDS: Pantoprazole 40 mg EC Tab PO SCH (10:48)
--- NOTE | 2017-12-15 11:34 | CP.PCM.CON ---
History of Present Illness - History of Present Illness History of Present Illness: Patient is 82 years of age I was called to see her for consultation because of abnormal electrolyte. History was taken from the as well as was taken from the record. Patient has history of COPD diabetes mellitus and also history of urine infection with ESLB Patient received antibiotics and also medication noted that she has been taken diuretics which has been stopped today and noted that they have potassium know and she also has metabolic alkalosis as noted. Past medical history as mentioned Review of systems see below On social history unremarkable Review of Systems - Constitutional Constitutional: As Per HPI, Weakness. absent: Chills - EENT Eyes: Blurred Vision Ears: As Per HPI Nose/Mouth/Throat: Dry Mouth. absent: Epistaxis - Cardiovascular Cardiovascular: absent: Acrocyanosis, Chest Pain, Dyspnea, Edema, Leg Edema - Respiratory Respiratory: Dyspnea on Exertion. absent: Hemoptysis - Gastrointestinal Gastrointestinal: absent: Abdominal Pain, Coffee Ground Emesis, Diarrhea, Vomiting - Genitourinary Genitourinary: Nocturia - Musculoskeletal Musculoskeletal: Muscle Weakness - Neurological Neurological: Confusion, Weakness. absent: Convulsions, Numbness - Hematologic/Lymphatic Hematologic: absent: Easy Bleeding Past Patient History - Infectious Disease Hx of Infectious Diseases: None - Tetanus Immunizations Tetanus Immunization: Unknown - Past Medical History & Family History Past Medical History?: Yes Past Family History: Reviewed and not pertinent - Past Social History Smoking Status: Former Smoker Chewing Tobacco Use: No Cigar Use: No Alcohol: None Drugs: Denies Home Situation {Lives}: Other (Rehabilitation) - CARDIAC Hx Congestive Heart Failure: Yes Hx Hypercholesterolemia: Yes Hx Hypertension: Yes - PULMONARY Hx Asthma: Yes Hx Chronic Obstructive Pulmonary Disease (COPD): Yes Hx Emphysema: Yes Hx Pneumonia: Yes - NEUROLOGICAL Hx Seizures: No - HEENT Hx HEENT Problems: No - RENAL Hx Chronic Kidney Disease: No - ENDOCRINE/METABOLIC Hx Diabetes Mellitus Type 2: Yes Hx Hypothyroidism: Yes - HEMATOLOGICAL/ONCOLOGICAL Hx Anemia: Yes Hx Cancer: Yes Hx Human Immunodeficiency Virus (HIV): No - INTEGUMENTARY Hx Dermatological Problems: No - MUSCULOSKELETAL/RHEUMATOLOGICAL Hx Arthritis: Yes Hx Falls: No Hx Osteoarthritis: Yes - GASTROINTESTINAL Hx Gastritis: Yes - GENITOURINARY/GYNECOLOGICAL Hx Uterine Cancer: Yes Hx Urinary Tract Infection: Yes - PSYCHIATRIC Hx Anxiety: Yes Hx Depression: Yes Hx Substance Use: No - SURGICAL HISTORY Hx Appendectomy: Yes Hx Hysterectomy: Yes - ANESTHESIA Hx Anesthesia: Yes Hx Anesthesia Reactions: No Hx Malignant Hyperthermia: No Meds Allergies/Adverse Reactions: Allergies Allergy/AdvReac Type Severity Reaction Status Date / Time No Known Allergies Allergy Verified 11/06/17 16:50 - Medications Medications: Current Medications Acetaminophen (Tylenol 325mg Tab) 650 mg PO Q4H PRN PRN Reason: Pain, Mild (1-3) Last Admin: 12/14/17 18:07 Dose: 650 mg Acetaminophen (Tylenol 325mg Tab) 650 mg PO Q4H PRN PRN Reason: Temp >100 Acetazolamide (Diamox 250 Mg Tab) 250 mg PO BID [facility] Acetylcysteine (Acetylcysteine 20%) 3 ml INH RBID [facility] Stop: 12/16/17 08:01 Last Admin: 12/15/17 07:46 Dose: 3 ml Al Hydrox/Mg Hydrox/Simethicone (Maalox Plus 30 Ml) 30 ml PO Q4H PRN PRN Reason: heartburn/indigestion Albuterol Sulfate (Albuterol 0.083% Inhal Ro (2.5 Mg/3 Ml) Ud) 2.5 mg INH RQ4 PRN PRN Reason: Shortness of Breath Last Admin: 12/12/17 04:52 Dose: 2.5 mg Albuterol/Ipratropium (Duoneb 3 Mg/0.5 Mg (3 Ml) Ud) 3 ml INH RQID [facility] Last Admin: 12/15/17 11:02 Dose: 3 ml Aspirin (Ecotrin) 81 mg PO DAILY [facility] Last Admin: 12/15/17 08:33 Dose: Not Given Calcium Carbonate (Oscal) 500 mg PO BID [facility] Last Admin: 12/15/17 08:34 Dose: Not Given Dimethicone (Proshield Plus Skin Protectant) 1 applic TOP Q8 [facility] Enoxaparin Sodium (Lovenox) 40 mg SC QPM [facility] PRN Reason: Protocol Last Admin: 12/13/17 17:03 Dose: 40 mg Furosemide (Lasix) 40 mg PO BID [facility] Last Admin: 12/15/17 08:34 Dose: Not Given Vancomycin HCl 1 gm/ Sodium (Chloride) 250 mls @ 166.667 mls/hr IVPB DAILY [facility] PRN Reason: Protocol Last Admin: 12/14/17 09:30 Dose: 166.667 mls/hr Meropenem 500 mg/ Sodium (Chloride) 100 mls @ 100 mls/hr IVPB Q8 [facility] PRN Reason: Protocol Last Admin: 12/15/17 08:38 Dose: 100 mls/hr Potassium Chloride (Potassium Cl 10meq/50ml Sterile Water) 50 mls @ 50 mls/hr IVPB Q1 [facility] Stop: 12/15/17 11:59 Last Admin: 12/15/17 10:46 Dose: 50 mls/hr Potassium Chloride 40 meq/ (Sodium Chloride) 1,020 mls @ 40 mls/hr IV .Q24H [facility] Stop: 12/16/17 11:29 Insulin Detemir (Levemir) 18 units SC HS [facility] Last Admin: 12/14/17 22:37 Dose: 18 u Insulin Human Regular (Humulin R) 0 units SC ACCU-CHECK [facility] PRN Reason: Protocol Last Admin: 12/15/17 06:25 Dose: Not Given Lidocaine (Lidoderm) 1 ea TD DAILY [facility] Last Admin: 12/15/17 10:47 Dose: 1 ea Magnesium Hydroxide (Milk Of Magnesia) 30 ml PO DAILY PRN PRN Reason: Constipation Methylprednisolone (Solu-Medrol) 20 mg IVP DAILY [facility] Last Admin: 12/15/17 08:39 Dose: 20 mg Montelukast Sodium (Singulair) 10 mg PO HS [facility] Last Admin: 12/14/17 22:37 Dose: 10 mg Multivitamins/Minerals (Therapeutic-M Tab) 1 tab PO DAILY [facility] Last Admin: 12/15/17 08:35 Dose: Not Given Pantoprazole Sodium (Protonix Ec Tab) 40 mg PO DAILY [facility] Last Admin: 12/15/17 10:48 Dose: 40 mg Silver Sulfadiazine (Silvadene 1% 20 Gm) 1 ea TOP QSHIFT [facility] Tramadol HCl (Ultram) 50 mg PO Q8H PRN PRN Reason: Pain, moderate (4-7) Last Admin: 12/15/17 10:53 Dose: 50 mg Valsartan (Diovan) 80 mg PO DAILY [facility] Last Admin: 12/15/17 08:33 Dose: 80 mg Verapamil HCl (Calan Sr Tab) 240 mg PO DAILY [facility] Last Admin: 12/15/17 08:33 Dose: 240 mg Physical Exam - Constitutional Appears: No Acute Distress - ENT Exam ENT Exam: Mucous Membranes Dry - Neck Exam Neck exam: Negative for: Lymphadenopathy - Respiratory Exam Respiratory Exam: NORMAL BREATHING PATTERN. absent: Chest Wall Tenderness - Cardiovascular Exam Cardiovascular Exam: absent: Gallop, JVD, Rubs - Extremities Exam Extremities exam: Negative for: calf tenderness - Back Exam Back exam: absent: CVA tenderness (L), CVA tenderness (R) - Neurological Exam Neurological exam: Altered Results - Vital Signs Recent Vital Signs: Last Vital Signs Temp 97.6 F 12/15/17 08:48 Pulse 99 H 12/15/17 08:48 Resp 18 12/15/17 11:03 BP 172/85 H 12/15/17 08:48 Pulse Ox 94 L 12/15/17 08:48 - Labs Result Diagrams: 12/15/17 04:20 12/15/17 04:20 Labs: Laboratory Results - last 24 hr 12/14/17 12/14/17 12/14/17 08:00 10:58 15:08 WBC RBC Hgb Hct MCV MCH MCHC RDW Plt Count PT 10.3 INR 0.9 APTT 27.7 pCO2 59 H pO2 63 L HCO3 44.6 H* ABG pH 7.55 H ABG Total CO2 53.4 H ABG O2 Saturation 95.6 ABG O2 Content 15.4 ABG Base Excess 25.4 H ABG Hemoglobin 11.8 ABG Carboxyhemoglobin 1.7 H POC ABG HHb (Measured) 4.3 ABG Methemoglobin 1.1 ABG O2 Capacity 16.1 Roger Test Yes A-a O2 Difference 91.0 Hgb O2 Saturation 92.8 L FiO2 32.0 Crit Value Called To Dr. riley Crit Value Called By 23 Crit Value Read Back Y Blood Gas Notified Time 922 Sodium Potassium Chloride Carbon Dioxide Anion Gap BUN Creatinine Est GFR ( Amer) Est GFR (Non-Af Amer) POC Glucose (mg/dL) 195 H Random Glucose Calcium 12/14/17 12/14/17 12/15/17 17:09 21:56 04:20 WBC 7.9 RBC 3.68 L Hgb 11.4 L Hct 34.2 MCV 92.9 MCH 30.9 MCHC 33.2 RDW 16.5 H Plt Count 279 PT INR APTT pCO2 pO2 HCO3 ABG pH ABG Total CO2 ABG O2 Saturation ABG O2 Content ABG Base Excess ABG Hemoglobin ABG Carboxyhemoglobin POC ABG HHb (Measured) ABG Methemoglobin ABG O2 Capacity Roger Test A-a O2 Difference Hgb O2 Saturation FiO2 Crit Value Called To Crit Value Called By Crit Value Read Back Blood Gas Notified Time Sodium Potassium Chloride Carbon Dioxide Anion Gap BUN Creatinine Est GFR ( Amer) Est GFR (Non-Af Amer) POC Glucose (mg/dL) 220 H 257 H Random Glucose Calcium 12/15/17 12/15/17 12/15/17 04:20 05:44 06:53 WBC RBC Hgb Hct MCV MCH MCHC RDW Plt Count PT INR APTT pCO2 pO2 HCO3 ABG pH ABG Total CO2 ABG O2 Saturation ABG O2 Content ABG Base Excess ABG Hemoglobin ABG Carboxyhemoglobin POC ABG HHb (Measured) ABG Methemoglobin ABG O2 Capacity Roger Test A-a O2 Difference Hgb O2 Saturation FiO2 Crit Value Called To Crit Value Called By Crit Value Read Back Blood Gas Notified Time Sodium 142 Potassium 2.6 L Chloride 88 L Carbon Dioxide 49 H* Anion Gap 8 L BUN 23 H Creatinine 0.6 L Est GFR ( Amer) > 60 Est GFR (Non-Af Amer) > 60 POC Glucose (mg/dL) 79 112 H Random Glucose 67 Calcium 9.7 Assessment & Plan (1) Metabolic alkalosis Assessment and Plan: Patient appeared to have severe metabolic alkalosis CO2 around 49 also patient has hypokalemia and hypochloremia consistent with perhaps diuretics induced? My recommendation Discontinue Laix Intravenous normal saline to be given at somewhere 40-60 mL/h with potassium chloride supplement. We will add Diamox temporarily. Spot urine for chloride and potassium and NA Stat serum magnesium Status: Acute
[2017-12-15] MEDS: Proshield Plus GEL TOP SCH ×2 (11:44→17:00)
[2017-12-15] MEDS ORDERED: KCL 40MEQ/NS 1L 1,000 ML IV SCH (11:45)
[2017-12-15] MEDS ORDERED: Potassium Chloride 20 mEq ER Tab PO ONE (12:02)
[2017-12-15 17:32] LABS: BLOOD UREA NITROGEN 21 mg/dl (7-17); CALCIUM 9.3 mg/dL (8.4-10.2); GFR AFRICAN-AMERICAN > 60; GFR NON-AFRICAN AMERICAN > 60
[2017-12-15] MEDS: Insulin Detemir 100 Units/ml Inj SC SCH (21:12)
[2017-12-16] MEDS: Proshield Plus GEL TOP SCH ×3 (00:53→17:45)
[2017-12-16] MEDS: Meropenem 500 MG in Sodium Chloride 0.9% 100 ML IVPB SCH ×3 (00:54→17:44)
[2017-12-16] MEDS: Insulin Regular 100 units/ml SC SCH ×4 (06:45→23:29)
[2017-12-16 06:48] LABS: HEMOGLOBIN 10.6 g/dL (12.0-16.0); MEAN CELL VOLUME 93.7 fl (81.0-99.0); MEAN CORPUSCULAR HEMOGLOBIN 31.3 pg (27.0-31.0); MEAN CORPUSCULAR HGB CONC 33.5 g/dL (33.0-37.0); RBC 3.38 Mil/uL (3.80-5.20); RED CELL DISTRIBUTION WIDTH 16.9 % (11.5-14.5); WHITE BLOOD COUNT 8.7 K/uL (4.8-10.8)
[2017-12-16 06:51] LABS: CALCIUM 9.4 mg/dL (8.4-10.2); GFR AFRICAN-AMERICAN > 60; GFR NON-AFRICAN AMERICAN > 60
[2017-12-16 07:03] LABS: BLOOD UREA NITROGEN 23 mg/dl (7-17)
[2017-12-16] MEDS ORDERED: EPINEPHrine 1 mg/ml (1:1000) Inj ONE (07:19)
[2017-12-16] MEDS ORDERED: Lidocaine 2% Jelly (Uro-Jet) ONE (07:20)
[2017-12-16] MEDS ORDERED: Lidocaine 2% Jelly (5 ml) TOP ONE (07:20)
[2017-12-16] MEDS ORDERED: Lidocaine 1% Inj (20ml) ONE (07:20)
[2017-12-16] MEDS ORDERED: Midazolam 2 MG/2 ML VIAL ONE (07:55)
[2017-12-16] MEDS ORDERED: Lidocaine 2% MPF (5 ml) Inj ONE (07:55)
[2017-12-16] MEDS ORDERED: Propofol 10 mg/ml Inj (20 ML) ONE (07:55)
[2017-12-16] MEDS ORDERED: Dextrose 5%/0.9% NS 1,000 ML IV ONE (08:00)
[2017-12-16] MEDS: Albuterol-Ipratrop 3 mg / 0.5 (3 ml) UD INH SCH ×4 (08:13→19:30)
[2017-12-16] MEDS ORDERED: Lidocaine 2% Jelly (30 ml) ONE (08:13)
[2017-12-16] MEDS: Acetylcysteine 20% Inhal Soln (4ml) INH SCH ×2 (08:13→08:14)
[2017-12-16] MEDS ORDERED: Albuterol-Ipratrop 3 mg / 0.5 (3 ml) UD INH STA (09:19)
[2017-12-16] MEDS ORDERED: Albuterol-Ipratrop 3 mg / 0.5 (3 ml) UD ONE (09:19)
--- NOTE | 2017-12-16 09:28 | RAD ---
PROCEDURE: CHEST RADIOGRAPH, 1 VIEW HISTORY: S/P bronchoscopy COMPARISON: 08/13/2018 FINDINGS: LUNGS: Postop changes Less leftward mediastinal shift - less left hemithoracic volume loss. Right mid lung chain sutures-similar PLEURA: No pneumothorax appreciated. Left pleural effusion inferred CARDIOVASCULAR: Normal. OSSEOUS STRUCTURES: No significant abnormalities. VISUALIZED UPPER ABDOMEN: Normal. OTHER FINDINGS: None. IMPRESSION: Status post bronchoscopy. No pneumothorax. Interval improved aeration left lung apex. Other consolidations persisting - left mid - to lower lung base . Left pleural effusion Right lung postop changes -similar
--- NOTE | 2017-12-16 11:57 | CP.PCM.PN ---
Subjective - Date & Time of Evaluation Date of Evaluation: 12/16/17 Time of Evaluation: 11:45 - Subjective Subjective: Pt seen post Bronchoscopy afebrile saturating well on High Flow Oxygen denies CP no SOB no abd pain complains of poor appetite Hypoglycemic episode this am prior to Bronchoscopy ' Objective - Vital Signs/Intake and Output Vital Signs (last 24 hours): Temp Pulse Resp BP Pulse Ox 98.4 F 103 H 21 103/72 100 12/16/17 10:10 12/16/17 10:10 12/16/17 10:10 12/16/17 10:10 12/16/17 10:10 Intake and Output: 12/16/17 12/16/17 06:59 18:59 Intake Total 10 Output Total 200 Balance -190 - Medications Medications: Current Medications Acetaminophen (Tylenol 325mg Tab) 650 mg PO Q4H PRN PRN Reason: Pain, Mild (1-3) Last Admin: 12/14/17 18:07 Dose: 650 mg Acetaminophen (Tylenol 325mg Tab) 650 mg PO Q4H PRN PRN Reason: Temp >100 Acetazolamide (Diamox 250 Mg Tab) 250 mg PO BID [facility] Last Admin: 12/15/17 16:57 Dose: 250 mg Al Hydrox/Mg Hydrox/Simethicone (Maalox Plus 30 Ml) 30 ml PO Q4H PRN PRN Reason: heartburn/indigestion Albuterol Sulfate (Albuterol 0.083% Inhal Ro (2.5 Mg/3 Ml) Ud) 2.5 mg INH RQ4 PRN PRN Reason: Shortness of Breath Last Admin: 12/12/17 04:52 Dose: 2.5 mg Albuterol/Ipratropium (Duoneb 3 Mg/0.5 Mg (3 Ml) Ud) 3 ml INH RQID [facility] Last Admin: 12/16/17 11:09 Dose: 3 ml Aspirin (Ecotrin) 81 mg PO DAILY [facility] Last Admin: 12/15/17 08:33 Dose: Not Given Calcium Carbonate (Oscal) 500 mg PO BID [facility] Last Admin: 12/15/17 17:00 Dose: 500 mg Dimethicone (Proshield Plus Skin Protectant) 1 applic TOP Q8 [facility] Last Admin: 12/16/17 00:53 Dose: 1 applic Enoxaparin Sodium (Lovenox) 40 mg SC QPM [facility] PRN Reason: Protocol Last Admin: 12/13/17 17:03 Dose: 40 mg Furosemide (Lasix) 40 mg PO BID [facility] Last Admin: 12/15/17 08:34 Dose: Not Given Vancomycin HCl 1 gm/ Sodium (Chloride) 250 mls @ 166.667 mls/hr IVPB DAILY [facility] PRN Reason: Protocol Last Admin: 12/15/17 11:58 Dose: 166.667 mls/hr Meropenem 500 mg/ Sodium (Chloride) 100 mls @ 100 mls/hr IVPB Q8 [facility] PRN Reason: Protocol Last Admin: 12/16/17 00:54 Dose: 100 mls/hr Dextrose/Sodium Chloride (Dextrose 5%-0.9% Ns 500 Ml) 1,000 mls @ 50 mls/hr IV .Q20H [facility] Stop: 12/17/17 09:45 Insulin Detemir (Levemir) 18 units SC [facility] Last Admin: 12/15/17 21:12 Dose: 18 u Insulin Human Regular (Humulin R) 0 units SC ACCU-CHECK [facility] PRN Reason: Protocol Last Admin: 12/16/17 06:45 Dose: Not Given Lidocaine (Lidoderm) 1 ea TD DAILY [facility] Last Admin: 12/15/17 10:47 Dose: 1 ea Magnesium Hydroxide (Milk Of Magnesia) 30 ml PO DAILY PRN PRN Reason: Constipation Methylprednisolone (Solu-Medrol) 20 mg IVP DAILY [facility] Last Admin: 12/15/17 08:39 Dose: 20 mg Montelukast Sodium (Singulair) 10 mg PO [facility] Last Admin: 12/15/17 21:11 Dose: 10 mg Multivitamins/Minerals (Therapeutic-M Tab) 1 tab PO DAILY [facility] Last Admin: 12/15/17 08:35 Dose: Not Given Pantoprazole Sodium (Protonix Ec Tab) 40 mg PO DAILY [facility] Last Admin: 12/15/17 10:48 Dose: 40 mg Silver Sulfadiazine (Silvadene 1% 20 Gm) 1 ea TOP QSHIFT [facility] Tramadol HCl (Ultram) 50 mg PO Q8H PRN PRN Reason: Pain, moderate (4-7) Last Admin: 12/15/17 10:53 Dose: 50 mg Valsartan (Diovan) 80 mg PO DAILY [facility] Last Admin: 12/15/17 08:33 Dose: 80 mg Verapamil HCl (Calan Sr Tab) 240 mg PO DAILY [facility] Last Admin: 12/15/17 08:33 Dose: 240 mg - Labs Labs: 12/16/17 05:30 12/16/17 05:30 PT 10.3 Seconds (9.8-13.1) 12/14/17 15:08 INR 0.9 (0.9-1.2) 12/14/17 15:08 APTT 27.7 Seconds (25.6-37.1) 12/14/17 15:08 - Constitutional Appears: No Acute Distress, Chronically Ill - Head Exam Head Exam: NORMAL INSPECTION, NORMOCEPHALIC - Eye Exam Eye Exam: EOMI, Normal appearance Pupil Exam: NORMAL ACCOMMODATION - ENT Exam ENT Exam: Mucous Membranes Dry, Normal External Ear Exam - Neck Exam Neck Exam: Full ROM. absent: Meningismus - Respiratory Exam Respiratory Exam: Minimal Rales, Rhonchi No Wheeze, No Respiratory Distress - Cardiovascular Exam Cardiovascular Exam: REGULAR RHYTHM, +S1, +S2 - GI/Abdominal Exam GI & Abdominal Exam: Distended, Soft, Normal Bowel Sounds. absent: Tenderness - Extremities Exam Extremities Exam: Normal Capillary Refill. absent: Calf Tenderness, Joint Swelling - Neurological Exam Neurological Exam: Awake Neuro motor strength exam: Left Upper Extremity: 4, Right Upper Extremity: 4, Left Lower Extremity: 4, Right Lower Extremity: 4 Additional comments: oriented to person and place - Psychiatric Exam Psychiatric exam: normal mood and affect - Skin Skin Exam: Dry, Pallor, Warm Assessment and Plan - Assessment and Plan (Free Text) Assessment: 82 y/o Female, well known to our service from previous multiple admissions, Hx of CAD, CHF, COPD , sent from [facility] of fever , cough . Found to be hypotensive on admission. CT of chest showed :Progressive consolidative changes/ atelectasis primarily affecting the left lower lobe. Patient was admitted with diagnosis of sepsis and started on IV antibiotics.Pulmonary and ID were consulted Her urine cx reported positive for E. Coli and blood cx positive for corynobacter species Patient developed acute on chronic respiratory failure with hypoxemia and hypercapnia due to COPD and CHF exacerbation . She was placed on High Flow O2 via NC and improving slowly CXR repeated 12/14 showed opacification of left hemithorax due to mucus plug 12/16 : Pt had Bronchoscopy 1. Mucus Plugging with total opacification of left hemithorax s/p Bronchoscopy - mucus suctioned out CXR showed total white out left hemithorax With weak cough unable to expectorate on Mucomyst INH Chest Physiotherapy Pulmonary on consult ff up cultures done during Bronch 2. Sepsis secondary to Nosocomial left upper/lower lobe pneumonia, bacteremia and UTI Pt was hypotensive on admission, with leukocytosis, tachycardia urine cx positive for E. Coli Blood cx positive for Corynobacter species CXR showed LLL infiltrate ID on consult continue Meropenem and vancomycin 3. Acute on Chronic Respiratory Failure Hypoxic, herpercapneic , on Home Oxygen sec to COPD and CHF plus PNA and Mucus plugging change back to high Flow Oxygen yesterday due to resp distress , today pt better , will change to 3 liter per NC On Solumedrol 20 Mg IV Continue duonebs, IV antibiotics Lasix held today 4.Acute on Chronic CHF, systolic and diastolic dysfunction, with minimally elevated troponin ECHO done last year showed EF 35%. Repeat Echo on previous admission showed normal EF on ARB and verapamil no BB due to COPD Lasix on hold for now due to low Hypochloremia 5. COPD exacerbation tapered IV Solumedrol to 20 mg IV daily Pulmonary on consult cont Albuterol neb tx with Mucomyst 6. UTI Urine c/s : ESBL E coli previous cultures showed ESBL E coli - ? colonization vs infection on Meropenem as per ID 7. Troponin Elevation likely due to demand ischemia due to Sepsis Troponin now normal had elevated Trop on previous admission cont ASA LDL normal on previous admission no BB sec to COPD 8.Anemia of chronic disease Stable 9. 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 DM type II with hyperglycemia hyperglycemia due to steroids now with hypoglycemia episode Accucheck with coverage Decrease Levemir to 8 units hs 11.Anxiety and depression stable on Temazepam and trazodone 12. Chronic pain on lidoderm patch to lower back, tramadol 13. DVT prophylaxis restart Lovenox
[2017-12-16] MEDS: Verapamil 240 mg ER Tab PO SCH (12:04)
[2017-12-16] MEDS: Lidocaine 5% Patch TD SCH (12:05)
[2017-12-16] MEDS: Pantoprazole 40 mg EC Tab PO SCH (12:07)
[2017-12-16] MEDS: Multivitamin With Minerals Tab PO SCH (12:08)
[2017-12-16] MEDS: MethylPREDNISolone 40 mg Vial IVP SCH (12:08)
--- NOTE | 2017-12-16 14:06 | CP.PCM.PN ---
Subjective - Date & Time of Evaluation Date of Evaluation: 12/16/17 Time of Evaluation: 14:03 - Subjective Subjective: Patient is sitting up in bed awake and conscious Patient appeared to be feeling much better Vital sign noted to be stable No nausea no vomiting Objective - Vital Signs/Intake and Output Vital Signs (last 24 hours): Temp Pulse Resp BP Pulse Ox 98.6 F 94 H 18 102/66 100 12/16/17 12:20 12/16/17 12:20 12/16/17 12:20 12/16/17 12:20 12/16/17 12:20 Intake and Output: 12/16/17 12/16/17 06:59 18:59 Intake Total 10 Output Total 200 Balance -190 - Medications Medications: Current Medications Acetaminophen (Tylenol 325mg Tab) 650 mg PO Q4H PRN PRN Reason: Pain, Mild (1-3) Last Admin: 12/14/17 18:07 Dose: 650 mg Acetaminophen (Tylenol 325mg Tab) 650 mg PO Q4H PRN PRN Reason: Temp >100 Acetazolamide (Diamox 250 Mg Tab) 250 mg PO BID [facility] Last Admin: 12/16/17 12:05 Dose: 250 mg Al Hydrox/Mg Hydrox/Simethicone (Maalox Plus 30 Ml) 30 ml PO Q4H PRN PRN Reason: heartburn/indigestion Albuterol Sulfate (Albuterol 0.083% Inhal Ro (2.5 Mg/3 Ml) Ud) 2.5 mg INH RQ4 PRN PRN Reason: Shortness of Breath Last Admin: 12/12/17 04:52 Dose: 2.5 mg Albuterol/Ipratropium (Duoneb 3 Mg/0.5 Mg (3 Ml) Ud) 3 ml INH RQID [facility] Last Admin: 12/16/17 11:09 Dose: 3 ml Aspirin (Ecotrin) 81 mg PO DAILY [facility] Last Admin: 12/16/17 12:05 Dose: 81 mg Calcium Carbonate (Oscal) 500 mg PO BID [facility] Last Admin: 12/16/17 12:07 Dose: 500 mg Dimethicone (Proshield Plus Skin Protectant) 1 applic TOP Q8 [facility] Last Admin: 12/16/17 00:53 Dose: 1 applic Enoxaparin Sodium (Lovenox) 40 mg SC QPM [facility] PRN Reason: Protocol Last Admin: 12/13/17 17:03 Dose: 40 mg Furosemide (Lasix) 40 mg PO BID [facility] Last Admin: 12/15/17 08:34 Dose: Not Given Vancomycin HCl 1 gm/ Sodium (Chloride) 250 mls @ 166.667 mls/hr IVPB DAILY [facility] PRN Reason: Protocol Last Admin: 12/16/17 11:57 Dose: 166.667 mls/hr Meropenem 500 mg/ Sodium (Chloride) 100 mls @ 100 mls/hr IVPB Q8 [facility] PRN Reason: Protocol Last Admin: 12/16/17 11:59 Dose: 100 mls/hr Dextrose/Sodium Chloride (Dextrose 5%-0.9% Ns 500 Ml) 1,000 mls @ 50 mls/hr IV .Q20H [facility] Stop: 12/17/17 09:45 Last Admin: 12/16/17 11:58 Dose: 50 mls/hr Insulin Detemir (Levemir) 18 units SC [facility] Last Admin: 12/15/17 21:12 Dose: 18 u Insulin Human Regular (Humulin R) 0 units SC ACCU-CHECK [facility] PRN Reason: Protocol Last Admin: 12/16/17 12:05 Dose: Not Given Lidocaine (Lidoderm) 1 ea TD DAILY [facility] Last Admin: 12/16/17 12:05 Dose: 1 ea Magnesium Hydroxide (Milk Of Magnesia) 30 ml PO DAILY [facility] PRN Reason: Constipation Methylprednisolone (Solu-Medrol) 20 mg IVP DAILY [facility] Last Admin: 12/16/17 12:08 Dose: 20 mg Montelukast Sodium (Singulair) 10 mg PO HS [facility] Last Admin: 12/15/17 21:11 Dose: 10 mg Multivitamins/Minerals (Therapeutic-M Tab) 1 tab PO DAILY [facility] Last Admin: 12/16/17 12:08 Dose: 1 tab Pantoprazole Sodium (Protonix Ec Tab) 40 mg PO DAILY [facility] Last Admin: 12/16/17 12:07 Dose: 40 mg Silver Sulfadiazine (Silvadene 1% 20 Gm) 1 ea TOP QSHIFT [facility] Tramadol HCl (Ultram) 50 mg PO Q8H PRN PRN Reason: Pain, moderate (4-7) Last Admin: 12/15/17 10:53 Dose: 50 mg Valsartan (Diovan) 80 mg PO DAILY [facility] Last Admin: 12/16/17 12:05 Dose: 80 mg Verapamil HCl (Calan Sr Tab) 240 mg PO DAILY [facility] Last Admin: 12/16/17 12:04 Dose: 240 mg - Labs Labs: 12/16/17 05:30 12/16/17 05:30 PT 10.3 Seconds (9.8-13.1) 12/14/17 15:08 INR 0.9 (0.9-1.2) 12/14/17 15:08 APTT 27.7 Seconds (25.6-37.1) 12/14/17 15:08 - Constitutional Appears: No Acute Distress - ENT Exam ENT Exam: Mucous Membranes Moist - Respiratory Exam Respiratory Exam: NORMAL BREATHING PATTERN. absent: Chest Wall Tenderness - Cardiovascular Exam Cardiovascular Exam: absent: Gallop, JVD, Rubs - GI/Abdominal Exam GI & Abdominal Exam: Soft, Normal Bowel Sounds - Extremities Exam Extremities Exam: absent: Calf Tenderness - Back Exam Back Exam: absent: CVA tenderness (L), CVA tenderness (R) - Neurological Exam Neurological Exam: Alert - Psychiatric Exam Psychiatric exam: Normal Affect - Skin Skin Exam: absent: Cyanosis Assessment and Plan (1) Metabolic alkalosis Assessment & Plan: Metabolic alkalosis has been improving CO2 came down from as high as 49 to 39 Serum chloride improving going up as well Serum sodium and potassium today Continue gentle hydration as ordered and continue Diamox for maybe a couple more days. Status: Acute
--- NOTE | 2017-12-16 14:24 | CP.PCM.PN ---
Subjective - Date & Time of Evaluation Date of Evaluation: 12/16/17 Time of Evaluation: 09:00 - Subjective Subjective: imoproving slowly Objective - Vital Signs/Intake and Output Vital Signs (last 24 hours): Temp Pulse Resp BP Pulse Ox 98.6 F 94 H 18 102/66 100 12/16/17 12:20 12/16/17 12:20 12/16/17 12:20 12/16/17 12:20 12/16/17 12:20 Intake and Output: 12/16/17 12/16/17 06:59 18:59 Intake Total 10 Output Total 200 Balance -190 - Medications Medications: Current Medications Acetaminophen (Tylenol 325mg Tab) 650 mg PO Q4H PRN PRN Reason: Pain, Mild (1-3) Last Admin: 12/14/17 18:07 Dose: 650 mg Acetaminophen (Tylenol 325mg Tab) 650 mg PO Q4H PRN PRN Reason: Temp >100 Acetazolamide (Diamox 250 Mg Tab) 250 mg PO BID [facility] Last Admin: 12/16/17 12:05 Dose: 250 mg Al Hydrox/Mg Hydrox/Simethicone (Maalox Plus 30 Ml) 30 ml PO Q4H PRN PRN Reason: heartburn/indigestion Albuterol Sulfate (Albuterol 0.083% Inhal Ro (2.5 Mg/3 Ml) Ud) 2.5 mg INH RQ4 PRN PRN Reason: Shortness of Breath Last Admin: 12/12/17 04:52 Dose: 2.5 mg Albuterol/Ipratropium (Duoneb 3 Mg/0.5 Mg (3 Ml) Ud) 3 ml INH RQID [facility] Last Admin: 12/16/17 11:09 Dose: 3 ml Aspirin (Ecotrin) 81 mg PO DAILY [facility] Last Admin: 12/16/17 12:05 Dose: 81 mg Calcium Carbonate (Oscal) 500 mg PO BID [facility] Last Admin: 12/16/17 12:07 Dose: 500 mg Dimethicone (Proshield Plus Skin Protectant) 1 applic TOP Q8 [facility] Last Admin: 12/16/17 00:53 Dose: 1 applic Enoxaparin Sodium (Lovenox) 40 mg SC QPM [facility] PRN Reason: Protocol Last Admin: 12/13/17 17:03 Dose: 40 mg Furosemide (Lasix) 40 mg PO BID [facility] Last Admin: 12/15/17 08:34 Dose: Not Given Vancomycin HCl 1 gm/ Sodium (Chloride) 250 mls @ 166.667 mls/hr IVPB DAILY [facility] PRN Reason: Protocol Last Admin: 12/16/17 11:57 Dose: 166.667 mls/hr Meropenem 500 mg/ Sodium (Chloride) 100 mls @ 100 mls/hr IVPB Q8 [facility] PRN Reason: Protocol Last Admin: 12/16/17 11:59 Dose: 100 mls/hr Dextrose/Sodium Chloride (Dextrose 5%-0.9% Ns 500 Ml) 1,000 mls @ 50 mls/hr IV .Q20H [facility] Stop: 12/17/17 09:45 Last Admin: 12/16/17 11:58 Dose: 50 mls/hr Insulin Detemir (Levemir) 18 units SC [facility] Last Admin: 12/15/17 21:12 Dose: 18 u Insulin Human Regular (Humulin R) 0 units SC ACCU-CHECK [facility] PRN Reason: Protocol Last Admin: 12/16/17 12:05 Dose: Not Given Lidocaine (Lidoderm) 1 ea TD DAILY [facility] Last Admin: 12/16/17 12:05 Dose: 1 ea Magnesium Hydroxide (Milk Of Magnesia) 30 ml PO DAILY PRN PRN Reason: Constipation Methylprednisolone (Solu-Medrol) 20 mg IVP DAILY [facility] Last Admin: 12/16/17 12:08 Dose: 20 mg Montelukast Sodium (Singulair) 10 mg PO [facility] Last Admin: 12/15/17 21:11 Dose: 10 mg Multivitamins/Minerals (Therapeutic-M Tab) 1 tab PO DAILY [facility] Last Admin: 12/16/17 12:08 Dose: 1 tab Pantoprazole Sodium (Protonix Ec Tab) 40 mg PO DAILY [facility] Last Admin: 12/16/17 12:07 Dose: 40 mg Silver Sulfadiazine (Silvadene 1% 20 Gm) 1 ea TOP QSHIFT [facility] Tramadol HCl (Ultram) 50 mg PO Q8H PRN PRN Reason: Pain, moderate (4-7) Last Admin: 12/15/17 10:53 Dose: 50 mg Valsartan (Diovan) 80 mg PO DAILY [facility] Last Admin: 12/16/17 12:05 Dose: 80 mg Verapamil HCl (Calan Sr Tab) 240 mg PO DAILY [facility] Last Admin: 12/16/17 12:04 Dose: 240 mg - Labs Labs: 12/16/17 05:30 12/16/17 05:30 PT 10.3 Seconds (9.8-13.1) 12/14/17 15:08 INR 0.9 (0.9-1.2) 12/14/17 15:08 APTT 27.7 Seconds (25.6-37.1) 12/14/17 15:08 - Constitutional Appears: Non-toxic, Chronically Ill - Head Exam Head Exam: NORMOCEPHALIC - Eye Exam Eye Exam: PERRL - ENT Exam ENT Exam: Mucous Membranes Dry - Neck Exam Neck Exam: absent: Lymphadenopathy - Respiratory Exam Respiratory Exam: Decreased Breath Sounds - Cardiovascular Exam Cardiovascular Exam: REGULAR RHYTHM - GI/Abdominal Exam GI & Abdominal Exam: Distended, Soft - Rectal Exam Rectal Exam: Deferred Assessment and Plan (1) Pneumonia Status: Acute (2) Dehydration Status: Acute (3) Diabetes Status: Acute (4) ESBL (extended spectrum beta-lactamase) producing bacteria infection Status: Acute
[2017-12-16] MEDS: Enoxaparin 40 mg Syringe SC SCH (21:13)
[2017-12-16] MEDS: Insulin Detemir 100 Units/ml Inj SC SCH (21:35)
[2017-12-17] MEDS: Meropenem 500 MG in Sodium Chloride 0.9% 100 ML IVPB SCH ×3 (00:31→17:13)
[2017-12-17] MEDS: Proshield Plus GEL TOP SCH ×3 (00:33→17:14)
[2017-12-17 06:06] LABS: HEMOGLOBIN 11.2 g/dL (12.0-16.0); MEAN CELL VOLUME 94.9 fl (81.0-99.0); MEAN CORPUSCULAR HEMOGLOBIN 30.4 pg (27.0-31.0); MEAN CORPUSCULAR HGB CONC 32.1 g/dL (33.0-37.0); RBC 3.69 Mil/uL (3.80-5.20)
[2017-12-17] MEDS: Insulin Regular 100 units/ml SC SCH ×4 (06:51→22:11)
[2017-12-17 07:48] LABS: BLOOD UREA NITROGEN 19 mg/dl (7-17); CALCIUM 9.6 mg/dL (8.4-10.2); GFR AFRICAN-AMERICAN > 60; GFR NON-AFRICAN AMERICAN > 60
[2017-12-17] MEDS: Albuterol-Ipratrop 3 mg / 0.5 (3 ml) UD INH SCH ×4 (08:09→19:35)
[2017-12-17] MEDS: Verapamil 240 mg ER Tab PO SCH (09:14)
[2017-12-17] MEDS: Pantoprazole 40 mg EC Tab PO SCH (09:14)
[2017-12-17] MEDS: MethylPREDNISolone 40 mg Vial IVP SCH (09:15)
[2017-12-17] MEDS: Multivitamin With Minerals Tab PO SCH (09:16)
[2017-12-17] MEDS: Lidocaine 5% Patch TD SCH (09:18)
[2017-12-17] MEDS ORDERED: Potassium Chloride 20 mEq/15 ml LIQ UD PO ONE (09:57)
[2017-12-17 11:01] LABS: ABG ALLEN TEST YES; ARTERIAL BLOOD GAS HCO3 30.9 mmol/L (21-28); ARTERIAL BLOOD GAS HEMOGLOBIN 11.3 g/dL (11.7-17.4); ARTERIAL BLOOD GAS O2 CAPACITY 15.6 mL/dL (16-24); ARTERIAL BLOOD GAS O2 SAT 96.3 % (95-98); ARTERIAL BLOOD GAS PCO2 62 mm/Hg (35-45); ARTERIAL BLOOD GAS PH 7.36 (7.35-7.45); ARTERIAL BLOOD GAS PO2 72 mm/Hg (80-100); ARTERIAL BLOOD GAS TCO2 36.9 mmol/L (22-28)
--- NOTE | 2017-12-17 11:11 | CP.PCM.PN ---
Subjective - Date & Time of Evaluation Date of Evaluation: 12/17/17 Time of Evaluation: 11:06 - Subjective Subjective: Patient sitting up in bed and awake No nausea no vomiting No diarrhea reported Appetite okay Objective - Vital Signs/Intake and Output Vital Signs (last 24 hours): Temp Pulse Resp BP Pulse Ox 97.2 F L 76 18 155/72 H 98 12/17/17 07:51 12/17/17 09:14 12/17/17 07:51 12/17/17 09:14 12/17/17 07:51 Intake and Output: 12/17/17 12/17/17 06:59 18:59 Intake Total 900 Output Total 1100 Balance -200 - Medications Medications: Current Medications Acetaminophen (Tylenol 325mg Tab) 650 mg PO Q4H PRN PRN Reason: Pain, Mild (1-3) Last Admin: 12/14/17 18:07 Dose: 650 mg Acetaminophen (Tylenol 325mg Tab) 650 mg PO Q4H PRN PRN Reason: Temp >100 Acetazolamide (Diamox 250 Mg Tab) 250 mg PO BID [facility] Last Admin: 12/17/17 09:14 Dose: 250 mg Al Hydrox/Mg Hydrox/Simethicone (Maalox Plus 30 Ml) 30 ml PO Q4H PRN PRN Reason: heartburn/indigestion Albuterol Sulfate (Albuterol 0.083% Inhal Ro (2.5 Mg/3 Ml) Ud) 2.5 mg INH RQ4 PRN PRN Reason: Shortness of Breath Last Admin: 12/12/17 04:52 Dose: 2.5 mg Albuterol/Ipratropium (Duoneb 3 Mg/0.5 Mg (3 Ml) Ud) 3 ml INH RQID [facility] Last Admin: 12/17/17 08:09 Dose: 3 ml Aspirin (Ecotrin) 81 mg PO DAILY [facility] Last Admin: 12/17/17 09:14 Dose: 81 mg Calcium Carbonate (Oscal) 500 mg PO BID [facility] Last Admin: 12/17/17 09:14 Dose: 500 mg Dimethicone (Proshield Plus Skin Protectant) 1 applic TOP Q8 [facility] Last Admin: 12/17/17 09:15 Dose: 1 applic Enoxaparin Sodium (Lovenox) 40 mg SC QPM [facility] PRN Reason: Protocol Last Admin: 12/16/17 21:13 Dose: 40 mg Furosemide (Lasix) 40 mg PO BID [facility] Last Admin: 12/15/17 08:34 Dose: Not Given Vancomycin HCl 1 gm/ Sodium (Chloride) 250 mls @ 166.667 mls/hr IVPB DAILY [facility] PRN Reason: Protocol Last Admin: 12/17/17 09:28 Dose: 166.667 mls/hr Meropenem 500 mg/ Sodium (Chloride) 100 mls @ 100 mls/hr IVPB Q8 [facility] PRN Reason: Protocol Last Admin: 12/17/17 09:16 Dose: 100 mls/hr Insulin Detemir (Levemir) 8 units SC [facility] Last Admin: 12/16/17 21:35 Dose: 8 units Insulin Human Regular (Humulin R) 0 units SC ACCU-CHECK [facility] PRN Reason: Protocol Last Admin: 12/17/17 06:51 Dose: Not Given Lidocaine (Lidoderm) 1 ea TD DAILY [facility] Last Admin: 12/17/17 09:18 Dose: 1 ea Magnesium Hydroxide (Milk Of Magnesia) 30 ml PO DAILY PRN PRN Reason: Constipation Methylprednisolone (Solu-Medrol) 20 mg IVP DAILY [facility] Last Admin: 12/17/17 09:15 Dose: 20 mg Montelukast Sodium (Singulair) 10 mg PO HS [facility] Last Admin: 12/16/17 21:14 Dose: 10 mg Multivitamins/Minerals (Therapeutic-M Tab) 1 tab PO DAILY [facility] Last Admin: 12/17/17 09:16 Dose: 1 tab Pantoprazole Sodium (Protonix Ec Tab) 40 mg PO DAILY [facility] Last Admin: 12/17/17 09:14 Dose: 40 mg Silver Sulfadiazine (Silvadene 1% 20 Gm) 1 ea TOP QSHIFT [facility] Tramadol HCl (Ultram) 50 mg PO Q8H PRN PRN Reason: Pain, moderate (4-7) Last Admin: 12/15/17 10:53 Dose: 50 mg Valsartan (Diovan) 80 mg PO DAILY [facility] Last Admin: 12/17/17 09:14 Dose: 80 mg Verapamil HCl (Calan Sr Tab) 240 mg PO DAILY [facility] Last Admin: 12/17/17 09:14 Dose: 240 mg - Labs Labs: 12/17/17 05:00 12/17/17 05:53 PT 10.3 Seconds (9.8-13.1) 12/14/17 15:08 INR 0.9 (0.9-1.2) 12/14/17 15:08 APTT 27.7 Seconds (25.6-37.1) 12/14/17 15:08 - Constitutional Appears: No Acute Distress - Eye Exam Eye Exam: Conjunctival injection - ENT Exam ENT Exam: Mucous Membranes Moist - Respiratory Exam Respiratory Exam: Rhonchi - Cardiovascular Exam Cardiovascular Exam: absent: Gallop, JVD, Rubs - GI/Abdominal Exam GI & Abdominal Exam: Soft, Normal Bowel Sounds - Extremities Exam Extremities Exam: absent: Calf Tenderness - Back Exam Back Exam: absent: CVA tenderness (L), CVA tenderness (R) - Neurological Exam Neurological Exam: Alert - Psychiatric Exam Psychiatric exam: Anxious - Skin Skin Exam: absent: Cyanosis Assessment and Plan (1) Metabolic alkalosis Assessment & Plan: Metabolic alkalosis continued to improve CO2 has gone down to 36 from as high as 49. Serum sodium K however serum potassium going down 3.2 patient needs potassium supplement Kidney functions remain okay I suggest to discontinue IV fluid at this point patient seems to be taking reasonable oral intake. In summary Metabolic alkalosis improving Hypokalemia continue potassium supplement DC IV fluid Continue Diamox for a couple more days Status: Acute
--- NOTE | 2017-12-17 11:16 | CP.PCM.PN ---
Subjective - Date & Time of Evaluation Date of Evaluation: 12/17/17 Time of Evaluation: 11:09 - Subjective Subjective: Appears to be in some mild respiratory distress this morning. CXR done yesterday post bronchoscopy showed partial aeration of the KADIE. SpO2 presently, on nasal canula at 3LPM was 93%. RR presently is 22BPM. Able to cooperate with exam. Complaining of her position in the bed, 'too low'. Coarse rhonchi are heard in the left chest in the upper lung knutson. Breath sounds are still absent in the left base. Prolonged E phase with low pitch wheezes heard. PCXR is pending. ABG done and showing adequate O2 sat, but CO2 is increasing. pH is corrected from previous exam. Will resume PO furosemide at 40MG once daily. Resume HFNC as well at 30L/30%O2. Encouraged to cough, congested, but no expectoration. Objective - Vital Signs/Intake and Output Vital Signs (last 24 hours): Temp Pulse Resp BP Pulse Ox 97.2 F L 76 18 155/72 H 98 12/17/17 07:51 12/17/17 09:14 12/17/17 07:51 12/17/17 09:14 12/17/17 07:51 Intake and Output: 12/16/17 12/17/17 23:59 11:59 Intake Total 900 Output Total 1100 Balance -200 - Medications Medications: Current Medications Acetaminophen (Tylenol 325mg Tab) 650 mg PO Q4H PRN PRN Reason: Pain, Mild (1-3) Last Admin: 12/14/17 18:07 Dose: 650 mg Acetaminophen (Tylenol 325mg Tab) 650 mg PO Q4H PRN PRN Reason: Temp >100 Acetazolamide (Diamox 250 Mg Tab) 250 mg PO BID [facility] Last Admin: 12/17/17 09:14 Dose: 250 mg Al Hydrox/Mg Hydrox/Simethicone (Maalox Plus 30 Ml) 30 ml PO Q4H PRN PRN Reason: heartburn/indigestion Albuterol Sulfate (Albuterol 0.083% Inhal Ro (2.5 Mg/3 Ml) Ud) 2.5 mg INH RQ4 PRN PRN Reason: Shortness of Breath Last Admin: 12/12/17 04:52 Dose: 2.5 mg Albuterol/Ipratropium (Duoneb 3 Mg/0.5 Mg (3 Ml) Ud) 3 ml INH RQID [facility] Last Admin: 12/17/17 08:09 Dose: 3 ml Aspirin (Ecotrin) 81 mg PO DAILY [facility] Last Admin: 12/17/17 09:14 Dose: 81 mg Calcium Carbonate (Oscal) 500 mg PO BID [facility] Last Admin: 12/17/17 09:14 Dose: 500 mg Dimethicone (Proshield Plus Skin Protectant) 1 applic TOP Q8 [facility] Last Admin: 12/17/17 09:15 Dose: 1 applic Enoxaparin Sodium (Lovenox) 40 mg SC QPM [facility] PRN Reason: Protocol Last Admin: 12/16/17 21:13 Dose: 40 mg Furosemide (Lasix) 40 mg PO DAILY [facility] Vancomycin HCl 1 gm/ Sodium (Chloride) 250 mls @ 166.667 mls/hr IVPB DAILY [facility] PRN Reason: Protocol Last Admin: 12/17/17 09:28 Dose: 166.667 mls/hr Meropenem 500 mg/ Sodium (Chloride) 100 mls @ 100 mls/hr IVPB Q8 [facility] PRN Reason: Protocol Last Admin: 12/17/17 09:16 Dose: 100 mls/hr Insulin Detemir (Levemir) 8 units SC [facility] Last Admin: 12/16/17 21:35 Dose: 8 units Insulin Human Regular (Humulin R) 0 units SC ACCU-CHECK [facility] PRN Reason: Protocol Last Admin: 12/17/17 06:51 Dose: Not Given Lidocaine (Lidoderm) 1 ea TD DAILY [facility] Last Admin: 12/17/17 09:18 Dose: 1 ea Magnesium Hydroxide (Milk Of Magnesia) 30 ml PO DAILY [facility] PRN Reason: Constipation Methylprednisolone (Solu-Medrol) 20 mg IVP DAILY [facility] Last Admin: 12/17/17 09:15 Dose: 20 mg Montelukast Sodium (Singulair) 10 mg PO HS [facility] Last Admin: 12/16/17 21:14 Dose: 10 mg Multivitamins/Minerals (Therapeutic-M Tab) 1 tab PO DAILY [facility] Last Admin: 12/17/17 09:16 Dose: 1 tab Pantoprazole Sodium (Protonix Ec Tab) 40 mg PO DAILY [facility] Last Admin: 12/17/17 09:14 Dose: 40 mg Silver Sulfadiazine (Silvadene 1% 20 Gm) 1 ea TOP QSHIFT [facility] Tramadol HCl (Ultram) 50 mg PO Q8H PRN PRN Reason: Pain, moderate (4-7) Last Admin: 12/15/17 10:53 Dose: 50 mg Valsartan (Diovan) 80 mg PO DAILY [facility] Last Admin: 12/17/17 09:14 Dose: 80 mg Verapamil HCl (Calan Sr Tab) 240 mg PO DAILY [facility] Last Admin: 12/17/17 09:14 Dose: 240 mg - Labs Labs: 12/17/17 05:00 12/17/17 05:53 PT 10.3 Seconds (9.8-13.1) 12/14/17 15:08 INR 0.9 (0.9-1.2) 12/14/17 15:08 APTT 27.7 Seconds (25.6-37.1) 12/14/17 15:08 Assessment and Plan (1) Hypercapnic respiratory failure, chronic Status: Chronic (2) Atelectasis, left Status: Acute (3) COPD (chronic obstructive pulmonary disease) Status: Chronic
[2017-12-17] MEDS ORDERED: methylPREDNISolone 40 MG in Sodium Chloride 0.9% 50 ML IVPB STA (11:18)
[2017-12-17] MEDS ORDERED: MethylPREDNISolone 40 mg Vial IVP STA (11:26)
--- NOTE | 2017-12-17 12:54 | RAD ---
PROCEDURE: CHEST RADIOGRAPH, 1 VIEW HISTORY: post broncoscopy COMPARISON: Chest radiograph dated 12/16/2017. FINDINGS: LUNGS: Stable chronic prominence of the bilateral interstitial markings. Limited evaluation of the left base. PLEURA: Limited evaluation of the left base. No appreciable pneumothorax. CARDIOVASCULAR: Atherosclerotic aortic calcifications. Cardiomediastinal silhouette stably prominent. . OSSEOUS STRUCTURES: Unchanged. VISUALIZED UPPER ABDOMEN: Normal. OTHER FINDINGS: None. IMPRESSION: Patient rotation limits evaluation of the left base. Right lung clear. No appreciable pneumothorax.
[2017-12-17] MEDS: Enoxaparin 40 mg Syringe SC SCH (17:12)
--- NOTE | 2017-12-17 18:34 | CP.PCM.PN ---
Subjective - Date & Time of Evaluation Date of Evaluation: 12/17/17 Time of Evaluation: 09:30 - Subjective Subjective: Patient was seen and examined bedside. Elderly female sitting in bed in upright position, appears sleepy and weak and pale today. States that was not able to rest well overnight . On 3 L O2 via NC saturating 93 % CXR this Am showed opening of left lung upper lobe mostly ABG 62/72 /30 /7.36 today WBC 8 Hgb 11 K 3.2 CO2 36 Objective - Vital Signs/Intake and Output Vital Signs (last 24 hours): Temp Pulse Resp BP Pulse Ox 98.3 F 97 H 22 170/72 H 96 12/17/17 16:14 12/17/17 16:14 12/17/17 16:14 12/17/17 16:14 12/17/17 16:14 Intake and Output: 12/17/17 12/17/17 06:59 18:59 Intake Total 900 Output Total 1100 Balance -200 - Medications Medications: Current Medications Acetaminophen (Tylenol 325mg Tab) 650 mg PO Q4H PRN PRN Reason: Pain, Mild (1-3) Last Admin: 12/14/17 18:07 Dose: 650 mg Acetaminophen (Tylenol 325mg Tab) 650 mg PO Q4H PRN PRN Reason: Temp >100 Acetazolamide (Diamox 250 Mg Tab) 250 mg PO BID [facility] Last Admin: 12/17/17 17:09 Dose: 250 mg Al Hydrox/Mg Hydrox/Simethicone (Maalox Plus 30 Ml) 30 ml PO Q4H PRN PRN Reason: heartburn/indigestion Albuterol Sulfate (Albuterol 0.083% Inhal Ro (2.5 Mg/3 Ml) Ud) 2.5 mg INH RQ4 PRN PRN Reason: Shortness of Breath Last Admin: 12/12/17 04:52 Dose: 2.5 mg Albuterol/Ipratropium (Duoneb 3 Mg/0.5 Mg (3 Ml) Ud) 3 ml INH RQID [facility] Last Admin: 12/17/17 15:41 Dose: 3 ml Aspirin (Ecotrin) 81 mg PO DAILY [facility] Last Admin: 12/17/17 09:14 Dose: 81 mg Calcium Carbonate (Oscal) 500 mg PO BID [facility] Last Admin: 12/17/17 17:13 Dose: 500 mg Dimethicone (Proshield Plus Skin Protectant) 1 applic TOP Q8 [facility] Last Admin: 12/17/17 17:14 Dose: 1 applic Enoxaparin Sodium (Lovenox) 40 mg SC QPM [facility] PRN Reason: Protocol Last Admin: 12/17/17 17:12 Dose: 40 mg Furosemide (Lasix) 40 mg PO DAILY [facility] Last Admin: 12/17/17 13:49 Dose: 40 mg Vancomycin HCl 1 gm/ Sodium (Chloride) 250 mls @ 166.667 mls/hr IVPB DAILY [facility] PRN Reason: Protocol Last Admin: 12/17/17 09:28 Dose: 166.667 mls/hr Meropenem 500 mg/ Sodium (Chloride) 100 mls @ 100 mls/hr IVPB Q8 [facility] PRN Reason: Protocol Last Admin: 12/17/17 17:13 Dose: 100 mls/hr Insulin Detemir (Levemir) 8 units SC HS [facility] Last Admin: 12/16/17 21:35 Dose: 8 units Insulin Human Regular (Humulin R) 0 units SC ACCU-CHECK [facility] PRN Reason: Protocol Last Admin: 12/17/17 17:10 Dose: 10 units Lidocaine (Lidoderm) 1 ea TD DAILY [facility] Last Admin: 12/17/17 09:18 Dose: 1 ea Magnesium Hydroxide (Milk Of Magnesia) 30 ml PO DAILY [facility] PRN Reason: Constipation Methylprednisolone (Solu-Medrol) 20 mg IVP DAILY [facility] Last Admin: 12/17/17 09:15 Dose: 20 mg Montelukast Sodium (Singulair) 10 mg PO HS [facility] Last Admin: 12/16/17 21:14 Dose: 10 mg Multivitamins/Minerals (Therapeutic-M Tab) 1 tab PO DAILY [facility] Last Admin: 12/17/17 09:16 Dose: 1 tab Pantoprazole Sodium (Protonix Ec Tab) 40 mg PO DAILY [facility] Last Admin: 12/17/17 09:14 Dose: 40 mg Silver Sulfadiazine (Silvadene 1% 20 Gm) 1 ea TOP QSHIFT [facility] Tramadol HCl (Ultram) 50 mg PO Q8H PRN PRN Reason: Pain, moderate (4-7) Last Admin: 12/15/17 10:53 Dose: 50 mg Valsartan (Diovan) 80 mg PO DAILY [facility] Last Admin: 12/17/17 09:14 Dose: 80 mg Verapamil HCl (Calan Sr Tab) 240 mg PO DAILY [facility] Last Admin: 12/17/17 09:14 Dose: 240 mg - Labs Labs: 12/17/17 05:00 12/17/17 05:53 PT 10.3 Seconds (9.8-13.1) 12/14/17 15:08 INR 0.9 (0.9-1.2) 12/14/17 15:08 APTT 27.7 Seconds (25.6-37.1) 12/14/17 15:08 - Constitutional Appears: Chronically Ill, Other (in mild respiratory distress , apperas weak ) - Head Exam Head Exam: ATRAUMATIC, NORMOCEPHALIC - Eye Exam Eye Exam: EOMI, PERRL Pupil Exam: NORMAL ACCOMODATION - ENT Exam ENT Exam: Mucous Membranes Moist, Normal Exam - Neck Exam Neck Exam: Normal Inspection - Respiratory Exam Respiratory Exam: Prolonged Expiratory Phase, Rhonchi (scattered to left hemithorax ), Respiratory Distress (mild respiratory distress). absent: Wheezes - Cardiovascular Exam Cardiovascular Exam: REGULAR RHYTHM, +S1, +S2. absent: JVD - GI/Abdominal Exam GI & Abdominal Exam: Soft, Normal Bowel Sounds. absent: Distended, Guarding, Tenderness, Rebound - Rectal Exam Rectal Exam: Deferred - Extremities Exam Extremities Exam: Normal Capillary Refill, Normal Inspection. absent: Pedal Edema - Back Exam Back Exam: NORMAL INSPECTION - Neurological Exam Neurological Exam: Alert, Awake, CN II-XII Intact, Oriented x3 Additional comments: sleepy , tired - Psychiatric Exam Psychiatric exam: Normal Affect - Skin Skin Exam: Dry, Pallor, Warm Additional comments: Sacral and upper buttock Stage I, 2 right medial upper buttock Stage III, 2 stage II right lower back Assessment and Plan - Assessment and Plan (Free Text) Assessment: 82 y/o Female, well known to our service from previous multiple admissions, Hx of CAD, CHF, COPD , [facility] , cough . Found to be hypotensive on admission. CT of chest showed :Progressive consolidative changes/ atelectasis primarily affecting the left lower lobe. Patient was admitted with diagnosis of sepsis and started on IV antibiotics.Pulmonary and ID were consulted Her urine cx reported positive for E. Coli and blood cx positive for corynobacter species Patient developed acute on chronic respiratory failure with hypoxemia and hypercapnia due to COPD and CHF exacerbation . She was placed on High Flow O2 via NC with very slow improvement CXR repeated 12/14 showed opacification of left hemithorax due to mucus plug She under went bronchoscopy 12/16 that showed mucus plugs Today in mild respiratory distress , more tired and sleepy with rising PCO2 in ABG 72 1. Mucus Plugging with total opacification of left hemithorax s/p Bronchoscopy - mucus suctioned out Repeat CXR today showed opening of left hemithorax ABG today with rise on PCO2 72 Placed back on HFNC 30 LMP FIO2 35 % given extra dose of Solumedrol 40 Mg IV With weak cough unable to expectorate Continue Mucomyst INH Chest Physiotherapy Pulmonary on consult sputum cultures post bronch positive for yeast 2. Sepsis secondary to Nosocomial left upper/lower lobe pneumonia, bacteremia and UTI Pt was hypotensive on admission, with leukocytosis, tachycardia urine cx positive for E. Coli Blood cx positive for Corynobacter species CXR showed LLL infiltrate ID on consult continue Meropenem and vancomycin 3. Acute on Chronic Respiratory Failure Hypoxic, herpercapneic , on Home Oxygen sec to COPD and CHF plus PNA and Mucus plugging placed back on high flow today due to rise in PCO2 Given extra dose of Solumedrol 40 today .Continue Solumedrol 20 Mg IV daily Continue duonebs, IV antibiotics restarted klasix 40 mg Po daily on diamox Po repeat BMP in AM 4.Acute on Chronic CHF, systolic and diastolic dysfunction, with minimally elevated troponin ECHO done last year showed EF 35%. Repeat Echo on previous admission showed normal EF on ARB and verapamil no BB due to COPD Restarted lasix 40 mg po daily today 5. COPD exacerbation Extra dose of 40 mg of IV solumedrol today Continue Solumedrol 20 mg Iv daily Pulmonary on consult cont Albuterol neb tx with Mucomyst 6. UTI Urine c/s : ESBL E coli previous cultures showed ESBL E coli - ? colonization vs infection on Meropenem as per ID 7. Troponin Elevation likely due to demand ischemia due to Sepsis Troponin now normal had elevated Trop on previous admission cont ASA LDL normal on previous admission no BB sec to COPD 8.Anemia of chronic disease Stable 9. Pressure Ulcers ( POA) Sacral and upper buttock Stage I, 2 right medial upper buttock Stage III, 2 stage II right lower back emergency medicine specialist consulted ulcers do not look infected 10. DM type II with hyperglycemia hyperglycemia due to steroids now with hypoglycemia episode Accucheck with coverage Decreased Levemir to 8 units hs 11.Anxiety and depression stable on Temazepam and trazodone 12. Chronic pain on lidoderm patch to lower back, tramadol 13. DVT prophylaxis restart Lovenox
[2017-12-17] MEDS: Insulin Detemir 100 Units/ml Inj SC SCH (22:10)
[2017-12-18] MEDS: Meropenem 500 MG in Sodium Chloride 0.9% 100 ML IVPB SCH ×3 (00:51→17:13)
[2017-12-18] MEDS: Proshield Plus GEL TOP SCH ×3 (01:35→17:18)
[2017-12-18] MEDS: Insulin Regular 100 units/ml SC SCH ×4 (07:00→22:19)
[2017-12-18] MEDS: Albuterol-Ipratrop 3 mg / 0.5 (3 ml) UD INH SCH ×4 (08:07→19:33)
[2017-12-18] MEDS: Lidocaine 5% Patch TD SCH (09:00)
[2017-12-18] MEDS: Verapamil 240 mg ER Tab PO SCH (09:33)
[2017-12-18] MEDS: Pantoprazole 40 mg EC Tab PO SCH (09:36)
[2017-12-18] MEDS: Multivitamin With Minerals Tab PO SCH (09:37)
--- NOTE | 2017-12-18 11:36 | CP.PCM.PN ---
Subjective - Date & Time of Evaluation Date of Evaluation: 12/18/17 Time of Evaluation: 11:36 - Subjective Subjective: Sitting upright in bed. Denies any current shortness of breath. Appears to be breathing comfortably at this time. Vital signs have been stable. Breath sounds remain diminished in the left lower lobe posteriorly. Remainder of lung knutson have good breath sounds without any audible wheezing. Few scattered rhonchi are heard bilaterally. Continue current medical regimen with the addition of acetylcysteine nebulizer 20% twice daily. Followup chest x-ray in the a.m. Objective - Vital Signs/Intake and Output Vital Signs (last 24 hours): Temp Pulse Resp BP Pulse Ox 97.9 F 106 H 16 178/71 H 100 12/18/17 08:00 12/18/17 08:00 12/18/17 11:05 12/18/17 09:35 12/18/17 08:00 Intake and Output: 12/17/17 12/18/17 23:59 11:59 Intake Total 460 Output Total 850 Balance -390 - Medications Medications: Current Medications Acetaminophen (Tylenol 325mg Tab) 650 mg PO Q4H PRN PRN Reason: Pain, Mild (1-3) Last Admin: 12/14/17 18:07 Dose: 650 mg Acetaminophen (Tylenol 325mg Tab) 650 mg PO Q4H PRN PRN Reason: Temp >100 Acetazolamide (Diamox 250 Mg Tab) 250 mg PO BID [facility] Last Admin: 12/18/17 09:34 Dose: 250 mg Al Hydrox/Mg Hydrox/Simethicone (Maalox Plus 30 Ml) 30 ml PO Q4H PRN PRN Reason: heartburn/indigestion Albuterol Sulfate (Albuterol 0.083% Inhal Ro (2.5 Mg/3 Ml) Ud) 2.5 mg INH RQ4 PRN PRN Reason: Shortness of Breath Last Admin: 12/12/17 04:52 Dose: 2.5 mg Albuterol/Ipratropium (Duoneb 3 Mg/0.5 Mg (3 Ml) Ud) 3 ml INH RQID [facility] Last Admin: 12/18/17 08:07 Dose: 3 ml Aspirin (Ecotrin) 81 mg PO DAILY [facility] Last Admin: 12/18/17 09:34 Dose: 81 mg Calcium Carbonate (Oscal) 500 mg PO BID [facility] Last Admin: 12/18/17 09:36 Dose: 500 mg Dimethicone (Proshield Plus Skin Protectant) 1 applic TOP Q8 [facility] Last Admin: 12/18/17 01:35 Dose: Not Given Enoxaparin Sodium (Lovenox) 40 mg SC QPM [facility] PRN Reason: Protocol Last Admin: 12/17/17 17:12 Dose: 40 mg Furosemide (Lasix) 40 mg PO DAILY [facility] Last Admin: 12/18/17 09:35 Dose: 40 mg Vancomycin HCl 1 gm/ Sodium (Chloride) 250 mls @ 166.667 mls/hr IVPB DAILY [facility] PRN Reason: Protocol Last Admin: 12/18/17 09:37 Dose: 166.667 mls/hr Meropenem 500 mg/ Sodium (Chloride) 100 mls @ 100 mls/hr IVPB Q8 [facility] PRN Reason: Protocol Last Admin: 12/18/17 09:35 Dose: 100 mls/hr Insulin Detemir (Levemir) 8 units SC [facility] Last Admin: 12/17/17 22:10 Dose: 8 units Insulin Human Regular (Humulin R) 0 units SC ACCU-CHECK [facility] PRN Reason: Protocol Last Admin: 12/17/17 22:11 Dose: 2 units Lidocaine (Lidoderm) 1 ea TD DAILY [facility] Last Admin: 12/17/17 09:18 Dose: 1 ea Magnesium Hydroxide (Milk Of Magnesia) 30 ml PO DAILY [facility] PRN Reason: Constipation Methylprednisolone (Solu-Medrol) 20 mg IVP DAILY [facility] Last Admin: 12/17/17 09:15 Dose: 20 mg Montelukast Sodium (Singulair) 10 mg PO HS [facility] Last Admin: 12/17/17 23:06 Dose: 10 mg Multivitamins/Minerals (Therapeutic-M Tab) 1 tab PO DAILY [facility] Last Admin: 12/18/17 09:37 Dose: 1 tab Pantoprazole Sodium (Protonix Ec Tab) 40 mg PO DAILY [facility] Last Admin: 12/18/17 09:36 Dose: 40 mg Silver Sulfadiazine (Silvadene 1% 20 Gm) 1 ea TOP QSHIFT [facility] Tramadol HCl (Ultram) 50 mg PO Q8H PRN PRN Reason: Pain, moderate (4-7) Last Admin: 12/15/17 10:53 Dose: 50 mg Valsartan (Diovan) 80 mg PO DAILY [facility] Last Admin: 12/18/17 09:34 Dose: 80 mg Verapamil HCl (Calan Sr Tab) 240 mg PO DAILY [facility] Last Admin: 12/18/17 09:33 Dose: 240 mg - Labs Labs: 12/17/17 05:00 12/17/17 05:53 PT 10.3 Seconds (9.8-13.1) 12/14/17 15:08 INR 0.9 (0.9-1.2) 12/14/17 15:08 APTT 27.7 Seconds (25.6-37.1) 12/14/17 15:08 Assessment and Plan (1) Hypercapnic respiratory failure, chronic Status: Chronic (2) Atelectasis, left Status: Acute (3) COPD (chronic obstructive pulmonary disease) Status: Chronic
[2017-12-18] MEDS: MethylPREDNISolone 40 mg Vial IVP SCH (12:33)
--- NOTE | 2017-12-18 13:56 | CP.PCM.PN ---
Subjective - Date & Time of Evaluation Date of Evaluation: 12/18/17 Time of Evaluation: 07:00 - Subjective Subjective: improving Objective - Vital Signs/Intake and Output Vital Signs (last 24 hours): Temp Pulse Resp BP Pulse Ox 98.3 F 100 H 20 185/75 H 96 12/18/17 12:00 12/18/17 12:00 12/18/17 12:00 12/18/17 12:00 12/18/17 12:00 Intake and Output: 12/18/17 12/18/17 06:59 18:59 Intake Total 460 Output Total 850 Balance -390 - Medications Medications: Current Medications Acetaminophen (Tylenol 325mg Tab) 650 mg PO Q4H PRN PRN Reason: Pain, Mild (1-3) Last Admin: 12/14/17 18:07 Dose: 650 mg Acetaminophen (Tylenol 325mg Tab) 650 mg PO Q4H PRN PRN Reason: Temp >100 Acetazolamide (Diamox 250 Mg Tab) 250 mg PO BID [facility] Last Admin: 12/18/17 09:34 Dose: 250 mg Acetylcysteine (Acetylcysteine 20%) 2 ml INH RBID [facility] Al Hydrox/Mg Hydrox/Simethicone (Maalox Plus 30 Ml) 30 ml PO Q4H PRN PRN Reason: heartburn/indigestion Albuterol Sulfate (Albuterol 0.083% Inhal Ro (2.5 Mg/3 Ml) Ud) 2.5 mg INH RQ4 PRN PRN Reason: Shortness of Breath Last Admin: 12/12/17 04:52 Dose: 2.5 mg Albuterol/Ipratropium (Duoneb 3 Mg/0.5 Mg (3 Ml) Ud) 3 ml INH RQID [facility] Last Admin: 12/18/17 12:31 Dose: 3 ml Aspirin (Ecotrin) 81 mg PO DAILY [facility] Last Admin: 12/18/17 09:34 Dose: 81 mg Calcium Carbonate (Oscal) 500 mg PO BID [facility] Last Admin: 12/18/17 09:36 Dose: 500 mg Dimethicone (Proshield Plus Skin Protectant) 1 applic TOP Q8 [facility] Last Admin: 12/18/17 01:35 Dose: Not Given Enoxaparin Sodium (Lovenox) 40 mg SC QPM [facility] PRN Reason: Protocol Last Admin: 12/17/17 17:12 Dose: 40 mg Furosemide (Lasix) 40 mg PO DAILY [facility] Last Admin: 12/18/17 09:35 Dose: 40 mg Vancomycin HCl 1 gm/ Sodium (Chloride) 250 mls @ 166.667 mls/hr IVPB DAILY [facility] PRN Reason: Protocol Last Admin: 12/18/17 09:37 Dose: 166.667 mls/hr Meropenem 500 mg/ Sodium (Chloride) 100 mls @ 100 mls/hr IVPB Q8 [facility] PRN Reason: Protocol Last Admin: 12/18/17 09:35 Dose: 100 mls/hr Insulin Detemir (Levemir) 8 units SC [facility] Last Admin: 12/17/17 22:10 Dose: 8 units Insulin Human Regular (Humulin R) 0 units SC ACCU-CHECK [facility] PRN Reason: Protocol Last Admin: 12/17/17 22:11 Dose: 2 units Lidocaine (Lidoderm) 1 ea TD DAILY [facility] Last Admin: 12/17/17 09:18 Dose: 1 ea Magnesium Hydroxide (Milk Of Magnesia) 30 ml PO DAILY PR[facility] PRN Reason: Constipation Methylprednisolone (Solu-Medrol) 20 mg IVP DAILY [facility] Last Admin: 12/18/17 12:33 Dose: 20 mg Montelukast Sodium (Singulair) 10 mg PO HS [facility] Last Admin: 12/17/17 23:06 Dose: 10 mg Multivitamins/Minerals (Therapeutic-M Tab) 1 tab PO DAILY [facility] Last Admin: 12/18/17 09:37 Dose: 1 tab Pantoprazole Sodium (Protonix Ec Tab) 40 mg PO DAILY [facility] Last Admin: 12/18/17 09:36 Dose: 40 mg Silver Sulfadiazine (Silvadene 1% 20 Gm) 1 ea TOP QSHIFT [facility] Tramadol HCl (Ultram) 50 mg PO Q8H PRN PRN Reason: Pain, moderate (4-7) Last Admin: 12/15/17 10:53 Dose: 50 mg Valsartan (Diovan) 80 mg PO DAILY [facility] Last Admin: 12/18/17 09:34 Dose: 80 mg Verapamil HCl (Calan Sr Tab) 240 mg PO DAILY [facility] Last Admin: 12/18/17 09:33 Dose: 240 mg - Labs Labs: 12/17/17 05:00 12/17/17 05:53 PT 10.3 Seconds (9.8-13.1) 12/14/17 15:08 INR 0.9 (0.9-1.2) 12/14/17 15:08 APTT 27.7 Seconds (25.6-37.1) 12/14/17 15:08 - Constitutional Appears: Non-toxic, Confused, Cachectic, Chronically Ill - Head Exam Head Exam: NORMOCEPHALIC - Eye Exam Eye Exam: PERRL. absent: Scleral icterus - ENT Exam ENT Exam: Mucous Membranes Dry - Neck Exam Neck Exam: absent: Lymphadenopathy - Respiratory Exam Respiratory Exam: Decreased Breath Sounds, Rhonchi - Cardiovascular Exam Cardiovascular Exam: REGULAR RHYTHM, +S1, +S2 - GI/Abdominal Exam GI & Abdominal Exam: Distended - Rectal Exam Rectal Exam: Deferred - Exam Exam: NORMAL INSPECTION - Extremities Exam Extremities Exam: absent: Pedal Edema - Back Exam Back Exam: absent: CVA tenderness (L), CVA tenderness (R) Assessment and Plan (1) Pneumonia Status: Acute (2) Dehydration Status: Acute (3) Diabetes Status: Acute (4) ESBL (extended spectrum beta-lactamase) producing bacteria infection Status: Acute - Assessment and Plan (Free Text) Assessment: cont rx as ordered
--- NOTE | 2017-12-18 14:34 | CP.PCM.PN ---
Subjective - Date & Time of Evaluation Date of Evaluation: 12/18/17 Time of Evaluation: 14:31 - Subjective Subjective: no changes clinically. VS stable Objective - Vital Signs/Intake and Output Vital Signs (last 24 hours): Temp Pulse Resp BP Pulse Ox 98.3 F 100 H 20 185/75 H 96 12/18/17 12:00 12/18/17 12:00 12/18/17 12:00 12/18/17 12:00 12/18/17 12:00 Intake and Output: 12/18/17 12/18/17 06:59 18:59 Intake Total 460 Output Total 850 Balance -390 - Medications Medications: Current Medications Acetaminophen (Tylenol 325mg Tab) 650 mg PO Q4H PRN PRN Reason: Pain, Mild (1-3) Last Admin: 12/14/17 18:07 Dose: 650 mg Acetaminophen (Tylenol 325mg Tab) 650 mg PO Q4H PRN PRN Reason: Temp >100 Acetazolamide (Diamox 250 Mg Tab) 250 mg PO BID [facility] Last Admin: 12/18/17 09:34 Dose: 250 mg Acetylcysteine (Acetylcysteine 20%) 2 ml INH RBID [facility] Al Hydrox/Mg Hydrox/Simethicone (Maalox Plus 30 Ml) 30 ml PO Q4H PRN PRN Reason: heartburn/indigestion Albuterol Sulfate (Albuterol 0.083% Inhal Ro (2.5 Mg/3 Ml) Ud) 2.5 mg INH RQ4 PRN PRN Reason: Shortness of Breath Last Admin: 12/12/17 04:52 Dose: 2.5 mg Albuterol/Ipratropium (Duoneb 3 Mg/0.5 Mg (3 Ml) Ud) 3 ml INH RQID [facility] Last Admin: 12/18/17 12:31 Dose: 3 ml Aspirin (Ecotrin) 81 mg PO DAILY [facility] Last Admin: 12/18/17 09:34 Dose: 81 mg Calcium Carbonate (Oscal) 500 mg PO BID [facility] Last Admin: 12/18/17 09:36 Dose: 500 mg Dimethicone (Proshield Plus Skin Protectant) 1 applic TOP Q8 [facility] Last Admin: 12/18/17 01:35 Dose: Not Given Enoxaparin Sodium (Lovenox) 40 mg SC QPM [facility] PRN Reason: Protocol Last Admin: 12/17/17 17:12 Dose: 40 mg Furosemide (Lasix) 40 mg PO DAILY [facility] Last Admin: 12/18/17 09:35 Dose: 40 mg Vancomycin HCl 1 gm/ Sodium (Chloride) 250 mls @ 166.667 mls/hr IVPB DAILY [facility] PRN Reason: Protocol Last Admin: 12/18/17 09:37 Dose: 166.667 mls/hr Meropenem 500 mg/ Sodium (Chloride) 100 mls @ 100 mls/hr IVPB Q8 [facility] PRN Reason: Protocol Last Admin: 12/18/17 09:35 Dose: 100 mls/hr Insulin Detemir (Levemir) 8 units SC [facility] Last Admin: 12/17/17 22:10 Dose: 8 units Insulin Human Regular (Humulin R) 0 units SC ACCU-CHECK [facility] PRN Reason: Protocol Last Admin: 12/17/17 22:11 Dose: 2 units Lidocaine (Lidoderm) 1 ea TD DAILY [facility] Last Admin: 12/17/17 09:18 Dose: 1 ea Magnesium Hydroxide (Milk Of Magnesia) 30 ml PO DAILY [facility] PRN Reason: Constipation Methylprednisolone (Solu-Medrol) 20 mg IVP DAILY [facility] Last Admin: 12/18/17 12:33 Dose: 20 mg Montelukast Sodium (Singulair) 10 mg PO HS [facility] Last Admin: 12/17/17 23:06 Dose: 10 mg Multivitamins/Minerals (Therapeutic-M Tab) 1 tab PO DAILY [facility] Last Admin: 12/18/17 09:37 Dose: 1 tab Pantoprazole Sodium (Protonix Ec Tab) 40 mg PO DAILY [facility] Last Admin: 12/18/17 09:36 Dose: 40 mg Silver Sulfadiazine (Silvadene 1% 20 Gm) 1 ea TOP QSHIFT [facility] Tramadol HCl (Ultram) 50 mg PO Q8H PRN PRN Reason: Pain, moderate (4-7) Last Admin: 12/15/17 10:53 Dose: 50 mg Valsartan (Diovan) 80 mg PO DAILY [facility] Last Admin: 12/18/17 09:34 Dose: 80 mg Verapamil HCl (Calan Sr Tab) 240 mg PO DAILY [facility] Last Admin: 12/18/17 09:33 Dose: 240 mg - Labs Labs: 12/17/17 05:00 12/17/17 05:53 PT 10.3 Seconds (9.8-13.1) 12/14/17 15:08 INR 0.9 (0.9-1.2) 12/14/17 15:08 APTT 27.7 Seconds (25.6-37.1) 12/14/17 15:08 - Constitutional Appears: No Acute Distress - ENT Exam ENT Exam: Mucous Membranes Moist - Neck Exam Neck Exam: absent: Lymphadenopathy - Respiratory Exam Respiratory Exam: absent: Chest Wall Tenderness - Cardiovascular Exam Cardiovascular Exam: absent: Gallop, JVD, Rubs - GI/Abdominal Exam GI & Abdominal Exam: Soft, Normal Bowel Sounds - Extremities Exam Extremities Exam: absent: Calf Tenderness - Back Exam Back Exam: absent: CVA tenderness (L) - Neurological Exam Neurological Exam: Alert - Psychiatric Exam Psychiatric exam: Normal Affect - Skin Skin Exam: absent: Cyanosis Assessment and Plan (1) Metabolic alkalosis Assessment & Plan: METABOLIC ALKALOSIS BETTER F/UP BMP TORROW STILL ON DIAMOX IF IMPROVING WILL D/C dIAMOX Status: Acute
--- NOTE | 2017-12-18 18:21 | CP.PCM.PN ---
Subjective - Date & Time of Evaluation Date of Evaluation: 12/18/17 Time of Evaluation: 09:00 - Subjective Subjective: Patient was seen and examined bedside. Elderly female sitting in bed in upright position, appears weak, anxious with weak cough , unable to expectorate On high flow O2 via NC 30 LPM 35 % FIO2 No acute issues overnight unable to rest well BP elevated today 185/75 and accuchecks elevated 323-- 284 Objective - Vital Signs/Intake and Output Vital Signs (last 24 hours): Temp Pulse Resp BP Pulse Ox 97.6 F 79 22 178/66 H 99 12/18/17 16:27 12/18/17 16:27 12/18/17 16:27 12/18/17 16:27 12/18/17 16:27 Intake and Output: 12/18/17 12/18/17 06:59 18:59 Intake Total 460 Output Total 850 Balance -390 - Medications Medications: Current Medications Acetaminophen (Tylenol 325mg Tab) 650 mg PO Q4H PRN PRN Reason: Pain, Mild (1-3) Last Admin: 12/14/17 18:07 Dose: 650 mg Acetaminophen (Tylenol 325mg Tab) 650 mg PO Q4H PRN PRN Reason: Temp >100 Acetazolamide (Diamox 250 Mg Tab) 250 mg PO BID [facility] Last Admin: 12/18/17 17:14 Dose: 250 mg Acetylcysteine (Acetylcysteine 20%) 2 ml INH RBID [facility] Al Hydrox/Mg Hydrox/Simethicone (Maalox Plus 30 Ml) 30 ml PO Q4H PRN PRN Reason: heartburn/indigestion Albuterol Sulfate (Albuterol 0.083% Inhal Ro (2.5 Mg/3 Ml) Ud) 2.5 mg INH RQ4 PRN PRN Reason: Shortness of Breath Last Admin: 12/12/17 04:52 Dose: 2.5 mg Albuterol/Ipratropium (Duoneb 3 Mg/0.5 Mg (3 Ml) Ud) 3 ml INH RQID [facility] Last Admin: 12/18/17 15:59 Dose: 3 ml Aspirin (Ecotrin) 81 mg PO DAILY [facility] Last Admin: 12/18/17 09:34 Dose: 81 mg Calcium Carbonate (Oscal) 500 mg PO BID [facility] Last Admin: 12/18/17 17:17 Dose: 500 mg Dimethicone (Proshield Plus Skin Protectant) 1 applic TOP Q8 [facility] Last Admin: 12/18/17 17:18 Dose: 1 applic Enoxaparin Sodium (Lovenox) 40 mg SC QPM [facility] PRN Reason: Protocol Last Admin: 12/17/17 17:12 Dose: 40 mg Furosemide (Lasix) 40 mg PO DAILY [facility] Last Admin: 12/18/17 09:35 Dose: 40 mg Vancomycin HCl 1 gm/ Sodium (Chloride) 250 mls @ 166.667 mls/hr IVPB DAILY [facility] PRN Reason: Protocol Last Admin: 12/18/17 09:37 Dose: 166.667 mls/hr Meropenem 500 mg/ Sodium (Chloride) 100 mls @ 100 mls/hr IVPB Q8 [facility] PRN Reason: Protocol Last Admin: 12/18/17 17:13 Dose: 100 mls/hr Insulin Detemir (Levemir) 8 units SC HS [facility] Last Admin: 12/17/17 22:10 Dose: 8 units Insulin Human Regular (Humulin R) 0 units SC ACCU-CHECK [facility] PRN Reason: Protocol Last Admin: 12/18/17 17:16 Dose: 4 units Lidocaine (Lidoderm) 1 ea TD DAILY [facility] Last Admin: 12/18/17 09:00 Dose: Not Given Magnesium Hydroxide (Milk Of Magnesia) 30 ml PO DAILY [facility] PRN Reason: Constipation Methylprednisolone (Solu-Medrol) 20 mg IVP DAILY [facility] Last Admin: 12/18/17 12:33 Dose: 20 mg Montelukast Sodium (Singulair) 10 mg PO HS [facility] Last Admin: 12/17/17 23:06 Dose: 10 mg Multivitamins/Minerals (Therapeutic-M Tab) 1 tab PO DAILY [facility] Last Admin: 12/18/17 09:37 Dose: 1 tab Pantoprazole Sodium (Protonix Ec Tab) 40 mg PO DAILY [facility] Last Admin: 12/18/17 09:36 Dose: 40 mg Silver Sulfadiazine (Silvadene 1% 20 Gm) 1 ea TOP QSHIFT [facility] Tramadol HCl (Ultram) 50 mg PO Q8H PRN PRN Reason: Pain, moderate (4-7) Last Admin: 12/15/17 10:53 Dose: 50 mg Valsartan (Diovan) 80 mg PO DAILY [facility] Last Admin: 12/18/17 09:34 Dose: 80 mg Verapamil HCl (Calan Sr Tab) 240 mg PO DAILY [facility] Last Admin: 12/18/17 09:33 Dose: 240 mg - Labs Labs: 12/17/17 05:00 12/17/17 05:53 PT 10.3 Seconds (9.8-13.1) 12/14/17 15:08 INR 0.9 (0.9-1.2) 12/14/17 15:08 APTT 27.7 Seconds (25.6-37.1) 12/14/17 15:08 - Constitutional Appears: Chronically Ill, Other (anxious in mild respiratory distress ) - Head Exam Head Exam: ATRAUMATIC, NORMOCEPHALIC - Eye Exam Eye Exam: EOMI, PERRL Pupil Exam: NORMAL ACCOMODATION - ENT Exam ENT Exam: Mucous Membranes Moist, Normal Exam - Neck Exam Neck Exam: Normal Inspection - Respiratory Exam Respiratory Exam: Decreased Breath Sounds (decresaed breath sounds to left hemithorax with poor air entry ), Prolonged Expiratory Phase, Rhonchi, Respiratory Distress - Cardiovascular Exam Cardiovascular Exam: REGULAR RHYTHM, +S1, +S2. absent: JVD - GI/Abdominal Exam GI & Abdominal Exam: Soft, Normal Bowel Sounds. absent: Distended, Guarding, Rebound - Rectal Exam Rectal Exam: Deferred - Extremities Exam Extremities Exam: Full ROM, Normal Capillary Refill, Normal Inspection. absent : Calf Tenderness, Pedal Edema - Back Exam Back Exam: NORMAL INSPECTION - Neurological Exam Neurological Exam: Alert, Awake, CN II-XII Intact, Oriented x3 - Psychiatric Exam Psychiatric exam: Anxious - Skin Skin Exam: Dry, Pallor, Warm Additional comments: Sacral and upper buttock Stage I, 2 right medial upper buttock Stage III, 2 stage II right lower back Assessment and Plan - Assessment and Plan (Free Text) Assessment: 82 y/o Female, well known to our service from previous multiple admissions, Hx of CAD, CHF, COPD , sent from [facility] of fever , cough . Found to be hypotensive on admission. CT of chest showed :Progressive consolidative changes/ atelectasis primarily affecting the left lower lobe. Patient was admitted with diagnosis of sepsis and started on IV antibiotics.Pulmonary and ID were consulted Her urine cx reported positive for E. Coli and blood cx positive for corynobacter species Patient developed acute on chronic respiratory failure with hypoxemia and hypercapnia due to COPD and CHF exacerbation . She was placed on High Flow O2 via NC with very slow improvement CXR repeated 12/14 showed opacification of left hemithorax due to mucus plug She underwent bronchoscopy 12/16 that showed mucus plugs Today in mild respiratory distress , more tired , anxious with poor air entry to left hemithorax on High Flow O2 30 LPM 35 % FIO2 O2 Sat 96 % 1. Mucus Plugging with total opacification of left hemithorax s/p Bronchoscopy - mucus suctioned out Still with SOB and poor air entry to left hemithorax today , unable to expectorate With weak cough using Accapella therapy Continue Duonebs and acetylcysteine INH On High Flow O2 via NC Will repeat CXR , ABG in AM pulmonary following sputum cultures post bronch positive for yeast 2. Sepsis secondary to Nosocomial left upper/lower lobe pneumonia, bacteremia and UTI Pt was hypotensive on admission, with leukocytosis, tachycardia urine cx positive for E. Coli Blood cx positive for Corynobacter species CXR showed LLL infiltrate ID on consult on Meropenem and vancomycin 3. Acute on Chronic Respiratory Failure Hypoxic, herpercapneic , on Home Oxygen sec to COPD and CHF plus PNA and Mucus plugging on high flow 30 LPM FIo2 35 % Continue Solumedrol 20 Mg IV daily Continue duonebs, IV antibiotics , lasix , diamox Will check ABG , BMP in AM 4.Acute on Chronic CHF, systolic and diastolic dysfunction, with minimally elevated troponin ECHO done last year showed EF 35%. Repeat Echo on previous admission showed normal EF on ARB and verapamil no BB due to COPD restarted lasix 5. COPD exacerbation Continue Solumedrol 20 mg Iv daily Pulmonary on consult cont Albuterol neb tx with Mucomyst 6. UTI Urine c/s : ESBL E coli previous cultures showed ESBL E coli - ? colonization vs infection on Meropenem as per ID 7. Troponin Elevation likely due to demand ischemia due to Sepsis Troponin now normal had elevated Trop on previous admission cont ASA LDL normal on previous admission no BB sec to COPD 8.Anemia of chronic disease Stable 9. 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 DM type II with hyperglycemia Accuchecks elevated last 24 hours Increase levemir from 8 to 10 units SQ Accucheck with coverage 11.Anxiety and depression Feeling extra anxious today . Given 1 dose 0.25 mg Po Xanax on Temazepam and trazodone 12. Chronic pain on lidoderm patch to lower back, tramadol 13. Hypertension uncontrolled today Will give hydralazine 10 mg IV x 1 dose Continue Verapamil , Valsartan and lasix 14. DVT prophylaxis on Lovenox
[2017-12-18] MEDS: Enoxaparin 40 mg Syringe SC SCH (18:48)
[2017-12-18] MEDS: Acetylcysteine 20% Inhal Soln (4ml) INH SCH (19:32)
[2017-12-18] MEDS: Insulin Detemir 100 Units/ml Inj SC SCH (22:20)
[2017-12-19] MEDS: Meropenem 500 MG in Sodium Chloride 0.9% 100 ML IVPB SCH ×3 (00:15→16:47)
[2017-12-19] MEDS: Proshield Plus GEL TOP SCH ×3 (00:26→16:49)
[2017-12-19 04:41] LABS: ABG ALLEN TEST YES; ARTERIAL BLOOD GAS HCO3 32.8 mmol/L (21-28); ARTERIAL BLOOD GAS HEMOGLOBIN 11.3 g/dL (11.7-17.4); ARTERIAL BLOOD GAS O2 CAPACITY 15.4 mL/dL (16-24); ARTERIAL BLOOD GAS O2 CONTENT 14.3 ML/dL (15-23); ARTERIAL BLOOD GAS PCO2 58 mm/Hg (35-45); ARTERIAL BLOOD GAS PH 7.41 (7.35-7.45); ARTERIAL BLOOD GAS PO2 59 mm/Hg (80-100); ARTERIAL BLOOD GAS TCO2 38.6 mmol/L (22-28)
[2017-12-19] MEDS: Insulin Regular 100 units/ml SC SCH ×4 (06:47→22:27)
[2017-12-19] MEDS: Acetylcysteine 20% Inhal Soln (4ml) INH SCH ×2 (07:48→19:00)
[2017-12-19] MEDS: Albuterol-Ipratrop 3 mg / 0.5 (3 ml) UD INH SCH ×4 (07:48→19:00)
[2017-12-19 08:01] LABS: BLOOD UREA NITROGEN 27 mg/dl (7-17); CALCIUM 10.8 mg/dL (8.4-10.2); GFR AFRICAN-AMERICAN > 60; GFR NON-AFRICAN AMERICAN 60
[2017-12-19 08:02] LABS: HEMOGLOBIN 11.7 g/dL (12.0-16.0); MEAN CELL VOLUME 92.9 fl (81.0-99.0); MEAN CORPUSCULAR HEMOGLOBIN 30.3 pg (27.0-31.0); MEAN CORPUSCULAR HGB CONC 32.6 g/dL (33.0-37.0); RBC 3.86 Mil/uL (3.80-5.20); RED CELL DISTRIBUTION WIDTH 16.4 % (11.5-14.5); WHITE BLOOD COUNT 15.1 K/uL (4.8-10.8)
[2017-12-19] MEDS: MethylPREDNISolone 40 mg Vial IVP SCH (08:16)
[2017-12-19] MEDS: Verapamil 240 mg ER Tab PO SCH (08:18)
[2017-12-19] MEDS: Multivitamin With Minerals Tab PO SCH (08:19)
[2017-12-19] MEDS: Pantoprazole 40 mg EC Tab PO SCH (08:19)
[2017-12-19] MEDS: Lidocaine 5% Patch TD SCH (08:25)
[2017-12-19] MEDS ORDERED: Potassium Chloride 20 mEq ER Tab PO ONE (09:01)
[2017-12-19] MEDS ORDERED: Albuterol-Ipratrop 3 mg / 0.5 (3 ml) UD INH STA (10:08)
--- NOTE | 2017-12-19 10:10 | CP.PCM.PN ---
Subjective - Date & Time of Evaluation Date of Evaluation: 12/19/17 Time of Evaluation: 09:45 - Subjective Subjective: Noted to be dyspneic, with decrease air entry to the left - stat Duoneb tx , Chest PT and Lasix IV given, FiO2 increased to 50% slight rales but + JVD Pt denies CP no fever no abd pain Objective - Vital Signs/Intake and Output Vital Signs (last 24 hours): Temp Pulse Resp BP Pulse Ox 97.6 F 90 21 131/72 96 12/19/17 08:00 12/19/17 08:18 12/19/17 08:22 12/19/17 08:18 12/19/17 08:00 Intake and Output: 12/19/17 12/19/17 06:59 18:59 Intake Total 460 Output Total 950 Balance -490 - Medications Medications: Current Medications Acetaminophen (Tylenol 325mg Tab) 650 mg PO Q4H PRN PRN Reason: Pain, Mild (1-3) Last Admin: 12/14/17 18:07 Dose: 650 mg Acetaminophen (Tylenol 325mg Tab) 650 mg PO Q4H PRN PRN Reason: Temp >100 Acetazolamide (Diamox 250 Mg Tab) 250 mg PO BID [facility] Last Admin: 12/19/17 08:18 Dose: 250 mg Acetylcysteine (Acetylcysteine 20%) 2 ml INH RBID [facility] Last Admin: 12/19/17 07:48 Dose: 2 ml Al Hydrox/Mg Hydrox/Simethicone (Maalox Plus 30 Ml) 30 ml PO Q4H PRN PRN Reason: heartburn/indigestion Albuterol Sulfate (Albuterol 0.083% Inhal Ro (2.5 Mg/3 Ml) Ud) 2.5 mg INH RQ4 PRN PRN Reason: Shortness of Breath Last Admin: 12/12/17 04:52 Dose: 2.5 mg Albuterol/Ipratropium (Duoneb 3 Mg/0.5 Mg (3 Ml) Ud) 3 ml INH RQID [facility] Last Admin: 12/19/17 07:48 Dose: 3 ml Albuterol/Ipratropium (Duoneb 3 Mg/0.5 Mg (3 Ml) Ud) 3 ml INH STAT STA Stop: 12/19/17 10:09 Aspirin (Ecotrin) 81 mg PO DAILY [facility] Last Admin: 12/19/17 08:18 Dose: 81 mg Calcium Carbonate (Oscal) 500 mg PO BID [facility] Last Admin: 12/19/17 08:15 Dose: 500 mg Dimethicone (Proshield Plus Skin Protectant) 1 applic TOP Q8 [facility] Last Admin: 12/19/17 08:20 Dose: 1 applic Furosemide (Lasix) 40 mg PO DAILY [facility] Last Admin: 12/19/17 08:17 Dose: 40 mg Vancomycin HCl 1 gm/ Sodium (Chloride) 250 mls @ 166.667 mls/hr IVPB DAILY [facility] PRN Reason: Protocol Last Admin: 12/19/17 08:19 Dose: 166.667 mls/hr Meropenem 500 mg/ Sodium (Chloride) 100 mls @ 100 mls/hr IVPB Q8 [facility] PRN Reason: Protocol Last Admin: 12/19/17 08:16 Dose: 100 mls/hr Insulin Detemir (Levemir) 10 units SC [facility] Last Admin: 12/18/17 22:20 Dose: 10 units Insulin Human Regular (Humulin R) 0 units SC ACCU-CHECK [facility] PRN Reason: Protocol Last Admin: 12/19/17 06:47 Dose: Not Given Lidocaine (Lidoderm) 1 ea TD DAILY [facility] Last Admin: 12/19/17 08:25 Dose: Not Given Magnesium Hydroxide (Milk Of Magnesia) 30 ml PO DAILY PRN PRN Reason: Constipation Methylprednisolone (Solu-Medrol) 20 mg IVP DAILY [facility] Last Admin: 12/19/17 08:16 Dose: 20 mg Montelukast Sodium (Singulair) 10 mg PO HS [facility] Last Admin: 12/18/17 22:20 Dose: 10 mg Multivitamins/Minerals (Therapeutic-M Tab) 1 tab PO DAILY [facility] Last Admin: 12/19/17 08:19 Dose: 1 tab Pantoprazole Sodium (Protonix Ec Tab) 40 mg PO DAILY [facility] Last Admin: 12/19/17 08:19 Dose: 40 mg Silver Sulfadiazine (Silvadene 1% 20 Gm) 1 ea TOP QSHIFT [facility] Tramadol HCl (Ultram) 50 mg PO Q8H PRN PRN Reason: Pain, moderate (4-7) Last Admin: 12/15/17 10:53 Dose: 50 mg Valsartan (Diovan) 80 mg PO DAILY [facility] Last Admin: 12/19/17 08:18 Dose: 80 mg Verapamil HCl (Calan Sr Tab) 240 mg PO DAILY [facility] Last Admin: 12/19/17 08:18 Dose: 240 mg - Labs Labs: 12/19/17 07:04 12/19/17 07:04 PT 10.3 Seconds (9.8-13.1) 12/14/17 15:08 INR 0.9 (0.9-1.2) 12/14/17 15:08 APTT 27.7 Seconds (25.6-37.1) 12/14/17 15:08 - Constitutional Appears: No Acute Distress, Chronically Ill - Head Exam Head Exam: NORMAL INSPECTION, NORMOCEPHALIC - Eye Exam Eye Exam: EOMI, Normal appearance Pupil Exam: NORMAL ACCOMMODATION - ENT Exam ENT Exam: Mucous Membranes Dry, Normal External Ear Exam - Neck Exam Neck Exam: Full ROM. absent: Meningismus - Respiratory Exam Respiratory Exam: Minimal Rales, Rhonchi, decrease air entry left No Wheeze, - Cardiovascular Exam Cardiovascular Exam: REGULAR RHYTHM, +S1, +S2 - GI/Abdominal Exam GI & Abdominal Exam: Distended, Soft, Normal Bowel Sounds. absent: Tenderness - Extremities Exam Extremities Exam: Normal Capillary Refill. absent: Calf Tenderness, Joint Swelling - Neurological Exam Neurological Exam: Awake Neuro motor strength exam: Left Upper Extremity: 4, Right Upper Extremity: 4, Left Lower Extremity: 4, Right Lower Extremity: 4 Additional comments: oriented to person and place - Psychiatric Exam Psychiatric exam: normal mood and affect - Skin Skin Exam: Dry, Pallor, Warm Assessment and Plan - Assessment and Plan (Free Text) Assessment: 82 y/o Female, well known to our service from previous multiple admissions, Hx of CAD, CHF, COPD , sent from [facility] of fever , cough . Found to be hypotensive on admission. CT of chest showed :Progressive consolidative changes/ atelectasis primarily affecting the left lower lobe. Patient was admitted with diagnosis of sepsis and started on IV antibiotics.Pulmonary and ID were consulted Her urine cx reported positive for E. Coli and blood cx positive for corynobacter species Patient developed acute on chronic respiratory failure with hypoxemia and hypercapnia due to COPD and CHF exacerbation . She was placed on High Flow O2 via NC with very slow improvement CXR repeated 12/14 showed opacification of left hemithorax due to mucus plug She underwent bronchoscopy 12/16 that showed mucus plugs Today 12/19 noted to be dyspneic , with poor air entry to left hemithorax - High Flow increased to 50% 1. Mucus Plugging with total opacification of left hemithorax s/p Bronchoscopy - mucus suctioned out Still with SOB and poor air entry to left hemithorax today , unable to expectorate With weak cough Chest Physiotherapy Continue Duonebs and acetylcysteine INH On High Flow O2 via NC- increased to 50% pulmonary following sputum cultures post bronch positive for yeast 2. Sepsis secondary to Nosocomial left upper/lower lobe pneumonia, bacteremia and UTI Pt was hypotensive on admission, with leukocytosis, tachycardia urine cx positive for E. Coli Blood cx positive for Corynobacter species CXR showed LLL infiltrate ID on consult on Meropenem and vancomycin , Hold Vanco as Level elevated 3. Acute on Chronic Respiratory Failure Hypoxic, herpercapneic , on Home Oxygen sec to COPD and CHF plus PNA and Mucus plugging on high flow 30 LPM FIo2 50% Continue Solumedrol 20 Mg IV daily Continue duonebs, IV antibiotics , lasix , diamox Lasix IV given 4.Acute on Chronic CHF, systolic and diastolic dysfunction, with minimally elevated troponin ECHO done last year showed EF 35%. Repeat Echo on previous admission showed normal EF on ARB and verapamil no BB due to COPD restarted lasix 5. COPD exacerbation Continue Solumedrol 20 mg Iv daily Pulmonary on consult cont Albuterol neb tx with Mucomyst 6. UTI Urine c/s : ESBL E coli previous cultures showed ESBL E coli - ? colonization vs infection on Meropenem as per ID 7. Troponin Elevation likely due to demand ischemia due to Sepsis Troponin now normal had elevated Trop on previous admission cont ASA LDL normal on previous admission no BB sec to COPD 8.Anemia of chronic disease Stable 9. 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 DM type II with hyperglycemia Accuchecks elevated last 24 hours Increase levemir from 8 to 10 units SQ Accucheck with coverage 11.Anxiety and depression Feeling extra anxious today . Given 1 dose 0.25 mg Po Xanax on Temazepam and trazodone 12. Chronic pain on lidoderm patch to lower back, tramadol 13. Hypertension Continue Verapamil , Valsartan and lasix 14. DVT prophylaxis on Lovenox
[2017-12-19] MEDS: Albuterol 0.083% Inhal Sol (2.5 mg/3 mL) UD INH PRN (10:11)
--- NOTE | 2017-12-19 10:33 | RAD ---
PROCEDURE: CHEST RADIOGRAPH, 1 VIEW HISTORY: acute on chronic respiratory failure COMPARISON: None available. FINDINGS: LUNGS: This study is limited due to significant patient rotation to the left side. Left lower lobe opacification may represent some combination of atelectasis/ infiltrate and effusion. Patchy infiltrate changes in the left upper lobe on also again noted. Chain sutures seen overlying the upper and mid lateral tram thorax Mild right apical pleural thickening. Left apex is partially obscured by overlying facial soft tissue artifact PLEURA: No pneumothorax or pleural fluid seen. CARDIOVASCULAR: Heart size unchanged. OSSEOUS STRUCTURES: No significant abnormalities. VISUALIZED UPPER ABDOMEN: Normal. OTHER FINDINGS: None. IMPRESSION: Left lower lobe opacification likely represent some combination of atelectasis/infiltrate and effusion. Patchy infiltrate changes seen in the left upper lobe
--- NOTE | 2017-12-19 10:56 | CP.PCM.PN ---
Subjective - Date & Time of Evaluation Date of Evaluation: 12/19/17 Time of Evaluation: 10:56 - Subjective Subjective: RENAL FOLLOW UP seen and examined, in mod respiratory disress O: vs as below gne: mod respiratory distres slcera anicteric op clear neck supple cv +s1+s2 lungs coarse bs abd: soft ext: no edema neuro: follows command psych: flat skin: no rash imp: alkalemia/ hypertension/ chf/ copd plan: receiving another dose of lasix for respiratory distress though does not appear overtly overloaded, suspect mucous plug. pt also getting chest pt as well. will monitor response to lasix getting diamox as well f/u cardiology cxr reviewed discussed w/ primary and pulm Objective - Vital Signs/Intake and Output Vital Signs (last 24 hours): Temp Pulse Resp BP Pulse Ox 97.6 F 90 26 H 131/72 96 12/19/17 08:00 12/19/17 08:18 12/19/17 10:12 12/19/17 10:12 12/19/17 08:00 Intake and Output: 12/19/17 12/19/17 06:59 18:59 Intake Total 460 Output Total 950 Balance -490 - Medications Medications: Current Medications Acetaminophen (Tylenol 325mg Tab) 650 mg PO Q4H PRN PRN Reason: Pain, Mild (1-3) Last Admin: 12/14/17 18:07 Dose: 650 mg Acetaminophen (Tylenol 325mg Tab) 650 mg PO Q4H PRN PRN Reason: Temp >100 Acetazolamide (Diamox 250 Mg Tab) 250 mg PO BID [facility] Last Admin: 12/19/17 08:18 Dose: 250 mg Acetylcysteine (Acetylcysteine 20%) 2 ml INH RBID [facility] Last Admin: 12/19/17 07:48 Dose: 2 ml Al Hydrox/Mg Hydrox/Simethicone (Maalox Plus 30 Ml) 30 ml PO Q4H PRN PRN Reason: heartburn/indigestion Albuterol Sulfate (Albuterol 0.083% Inhal Ro (2.5 Mg/3 Ml) Ud) 2.5 mg INH RQ4 PRN PRN Reason: Shortness of Breath Last Admin: 12/19/17 10:11 Dose: 2.5 mg Albuterol/Ipratropium (Duoneb 3 Mg/0.5 Mg (3 Ml) Ud) 3 ml INH RQID [facility] Last Admin: 12/19/17 07:48 Dose: 3 ml Aspirin (Ecotrin) 81 mg PO DAILY [facility] Last Admin: 12/19/17 08:18 Dose: 81 mg Calcium Carbonate (Oscal) 500 mg PO BID [facility] Last Admin: 12/19/17 08:15 Dose: 500 mg Dimethicone (Proshield Plus Skin Protectant) 1 applic TOP Q8 [facility] Last Admin: 12/19/17 08:20 Dose: 1 applic Furosemide (Lasix) 40 mg PO DAILY [facility] Last Admin: 12/19/17 08:17 Dose: 40 mg Vancomycin HCl 1 gm/ Sodium (Chloride) 250 mls @ 166.667 mls/hr IVPB DAILY [facility] PRN Reason: Protocol Last Admin: 12/19/17 08:19 Dose: 166.667 mls/hr Meropenem 500 mg/ Sodium (Chloride) 100 mls @ 100 mls/hr IVPB Q8 [facility] PRN Reason: Protocol Last Admin: 12/19/17 08:16 Dose: 100 mls/hr Insulin Detemir (Levemir) 10 units SC [facility] Last Admin: 12/18/17 22:20 Dose: 10 units Insulin Human Regular (Humulin R) 0 units SC ACCU-CHECK [facility] PRN Reason: Protocol Last Admin: 12/19/17 06:47 Dose: Not Given Lidocaine (Lidoderm) 1 ea TD DAILY [facility] Last Admin: 12/19/17 08:25 Dose: Not Given Magnesium Hydroxide (Milk Of Magnesia) 30 ml PO DAILY PRN PRN Reason: Constipation Methylprednisolone (Solu-Medrol) 20 mg IVP DAILY [facility] Last Admin: 12/19/17 08:16 Dose: 20 mg Montelukast Sodium (Singulair) 10 mg PO HS [facility] Last Admin: 12/18/17 22:20 Dose: 10 mg Multivitamins/Minerals (Therapeutic-M Tab) 1 tab PO DAILY [facility] Last Admin: 12/19/17 08:19 Dose: 1 tab Pantoprazole Sodium (Protonix Ec Tab) 40 mg PO DAILY [facility] Last Admin: 12/19/17 08:19 Dose: 40 mg Silver Sulfadiazine (Silvadene 1% 20 Gm) 1 ea TOP QSHIFT [facility] Tramadol HCl (Ultram) 50 mg PO Q8H PRN PRN Reason: Pain, moderate (4-7) Last Admin: 12/15/17 10:53 Dose: 50 mg Valsartan (Diovan) 80 mg PO DAILY [facility] Last Admin: 12/19/17 08:18 Dose: 80 mg Verapamil HCl (Calan Sr Tab) 240 mg PO DAILY [facility] Last Admin: 12/19/17 08:18 Dose: 240 mg - Labs Labs: 12/19/17 07:04 12/19/17 07:04 PT 10.3 Seconds (9.8-13.1) 12/14/17 15:08 INR 0.9 (0.9-1.2) 12/14/17 15:08 APTT 27.7 Seconds (25.6-37.1) 12/14/17 15:08
--- NOTE | 2017-12-19 12:36 | CP.PCM.PN ---
Subjective - Date & Time of Evaluation Date of Evaluation: 12/19/17 Time of Evaluation: 12:29 - Subjective Subjective: APPEARS THAT CPT USING FLUTTER VALVE DEVICE IS INEFFECTIVE. ATTEMPTED TO COUGH, BUT INEFFECTIVE. CONGESTED BUT UNABLE TO EXPECTORATE. BREATH SOUNDS ARE MARKEDLY DECREASED AGAIN OVER THE ENTIRE LEFT HEMITHORAX. CONTINUES TO RECEIVE AEROSOL THERAPY WITH DUONEB QID AND 20% MUCOMYST BID. WILL REQUEST MANUAL CPT USING CLAP AND COUGH TECHNIQUE WITH THE PATIENT IN A SIDE LYING POSITION WITH THE LEFT SIDE UP. BRONCHOSCOPY DONE EARLIER THIS WEEK WAS DIFFICULT WITH ONLY TEMPORARY BENEFIT. PATHOLOGY SPECIMEN WAS CONSISTENT WITH MUCOUS PLUG, AND SEGMENTAL AIRWAYS WERE CLEARED AT THE END OF THE PROCEDURE. TO REPEAT THIS WOULD IMPOSE ADDITIONAL RISK, AND LIKELY TO BE OF TEMPORARY BENEFIT ONCE AGAIN. Objective - Vital Signs/Intake and Output Vital Signs (last 24 hours): Temp Pulse Resp BP Pulse Ox 97.6 F 90 26 H 131/72 96 12/19/17 08:00 12/19/17 08:18 12/19/17 10:12 12/19/17 10:12 12/19/17 08:00 Intake and Output: 12/19/17 12/19/17 11:59 23:59 Intake Total 460 Output Total 950 Balance -490 - Medications Medications: Current Medications Acetaminophen (Tylenol 325mg Tab) 650 mg PO Q4H PRN PRN Reason: Pain, Mild (1-3) Last Admin: 12/14/17 18:07 Dose: 650 mg Acetaminophen (Tylenol 325mg Tab) 650 mg PO Q4H PRN PRN Reason: Temp >100 Acetazolamide (Diamox 250 Mg Tab) 250 mg PO BID [facility] Last Admin: 12/19/17 08:18 Dose: 250 mg Acetylcysteine (Acetylcysteine 20%) 2 ml INH RBID [facility] Last Admin: 12/19/17 07:48 Dose: 2 ml Al Hydrox/Mg Hydrox/Simethicone (Maalox Plus 30 Ml) 30 ml PO Q4H PRN PRN Reason: heartburn/indigestion Albuterol Sulfate (Albuterol 0.083% Inhal Ro (2.5 Mg/3 Ml) Ud) 2.5 mg INH RQ4 PRN PRN Reason: Shortness of Breath Last Admin: 12/19/17 10:11 Dose: 2.5 mg Albuterol/Ipratropium (Duoneb 3 Mg/0.5 Mg (3 Ml) Ud) 3 ml INH RQID [facility] Last Admin: 12/19/17 11:06 Dose: 3 ml Aspirin (Ecotrin) 81 mg PO DAILY [facility] Last Admin: 12/19/17 08:18 Dose: 81 mg Calcium Carbonate (Oscal) 500 mg PO BID [facility] Last Admin: 12/19/17 08:15 Dose: 500 mg Dimethicone (Proshield Plus Skin Protectant) 1 applic TOP Q8 [facility] Last Admin: 12/19/17 08:20 Dose: 1 applic Furosemide (Lasix) 40 mg PO DAILY [facility] Last Admin: 12/19/17 08:17 Dose: 40 mg Vancomycin HCl 1 gm/ Sodium (Chloride) 250 mls @ 166.667 mls/hr IVPB DAILY [facility] PRN Reason: Protocol Last Admin: 12/19/17 08:19 Dose: 166.667 mls/hr Meropenem 500 mg/ Sodium (Chloride) 100 mls @ 100 mls/hr IVPB Q8 [facility] PRN Reason: Protocol Last Admin: 12/19/17 08:16 Dose: 100 mls/hr Insulin Detemir (Levemir) 10 units SC [facility] Last Admin: 12/18/17 22:20 Dose: 10 units Insulin Human Regular (Humulin R) 0 units SC ACCU-CHECK [facility] PRN Reason: Protocol Last Admin: 12/19/17 06:47 Dose: Not Given Lidocaine (Lidoderm) 1 ea TD DAILY [facility] Last Admin: 12/19/17 08:25 Dose: Not Given Magnesium Hydroxide (Milk Of Magnesia) 30 ml PO DAILY [facility] PRN Reason: Constipation Methylprednisolone (Solu-Medrol) 20 mg IVP DAILY [facility] Last Admin: 12/19/17 08:16 Dose: 20 mg Montelukast Sodium (Singulair) 10 mg PO HS [facility] Last Admin: 12/18/17 22:20 Dose: 10 mg Multivitamins/Minerals (Therapeutic-M Tab) 1 tab PO DAILY [facility] Last Admin: 12/19/17 08:19 Dose: 1 tab Pantoprazole Sodium (Protonix Ec Tab) 40 mg PO DAILY [facility] Last Admin: 12/19/17 08:19 Dose: 40 mg Silver Sulfadiazine (Silvadene 1% 20 Gm) 1 ea TOP QSHIFT [facility] Tramadol HCl (Ultram) 50 mg PO Q8H PRN PRN Reason: Pain, moderate (4-7) Last Admin: 12/15/17 10:53 Dose: 50 mg Valsartan (Diovan) 80 mg PO DAILY [facility] Last Admin: 12/19/17 08:18 Dose: 80 mg Verapamil HCl (Calan Sr Tab) 240 mg PO DAILY [facility] Last Admin: 12/19/17 08:18 Dose: 240 mg - Labs Labs: 12/19/17 07:04 12/19/17 07:04 PT 10.3 Seconds (9.8-13.1) 12/14/17 15:08 INR 0.9 (0.9-1.2) 12/14/17 15:08 APTT 27.7 Seconds (25.6-37.1) 12/14/17 15:08 Assessment and Plan (1) Hypercapnic respiratory failure, chronic Status: Chronic (2) Atelectasis, left Status: Acute (3) COPD (chronic obstructive pulmonary disease) Status: Chronic
[2017-12-19] MEDS: Insulin Detemir 100 Units/ml Inj SC SCH (22:26)
[2017-12-20] MEDS: Meropenem 500 MG in Sodium Chloride 0.9% 100 ML IVPB SCH ×3 (00:21→16:44)
[2017-12-20] MEDS: Proshield Plus GEL TOP SCH ×3 (00:23→16:45)
[2017-12-20] MEDS: Albuterol-Ipratrop 3 mg / 0.5 (3 ml) UD INH SCH ×4 (07:27→19:11)
[2017-12-20] MEDS: Acetylcysteine 20% Inhal Soln (4ml) INH SCH ×2 (07:27→19:11)
[2017-12-20 08:10] LABS: HEMOGLOBIN 10.6 g/dL (12.0-16.0); MEAN CELL VOLUME 93.8 fl (81.0-99.0); MEAN CORPUSCULAR HEMOGLOBIN 30.2 pg (27.0-31.0); MEAN CORPUSCULAR HGB CONC 32.2 g/dL (33.0-37.0); RBC 3.5 Mil/uL (3.80-5.20); RED CELL DISTRIBUTION WIDTH 16.5 % (11.5-14.5); WHITE BLOOD COUNT 9.5 K/uL (4.8-10.8)
[2017-12-20 08:15] LABS: BLOOD UREA NITROGEN 36 mg/dl (7-17); CALCIUM 10.2 mg/dL (8.4-10.2); GFR AFRICAN-AMERICAN > 60; GFR NON-AFRICAN AMERICAN 60
[2017-12-20] MEDS: Pantoprazole 40 mg EC Tab PO SCH (08:40)
[2017-12-20] MEDS: MethylPREDNISolone 40 mg Vial IVP SCH (08:41)
[2017-12-20] MEDS: Multivitamin With Minerals Tab PO SCH (08:42)
[2017-12-20] MEDS: Insulin Regular 100 units/ml SC SCH ×4 (08:42→22:10)
[2017-12-20] MEDS: Lidocaine 5% Patch TD SCH (08:43)
[2017-12-20] MEDS: Verapamil 240 mg ER Tab PO SCH (08:43)
--- NOTE | 2017-12-20 12:32 | CP.PCM.PN ---
Subjective - Date & Time of Evaluation Date of Evaluation: 12/20/17 Time of Evaluation: 11:15 - Subjective Subjective: No fever breathing sl better than yesterday cough better, dry no CP no abd pain On High Flow Oxygen Objective - Vital Signs/Intake and Output Vital Signs (last 24 hours): Temp Pulse Resp BP Pulse Ox 97.3 F L 74 19 159/69 H 100 12/20/17 09:00 12/20/17 09:00 12/20/17 11:33 12/20/17 09:00 12/20/17 09:00 Intake and Output: 12/20/17 12/20/17 06:59 18:59 Intake Total 300 Balance 300 - Medications Medications: Current Medications Acetaminophen (Tylenol 325mg Tab) 650 mg PO Q4H PRN PRN Reason: Pain, Mild (1-3) Last Admin: 12/14/17 18:07 Dose: 650 mg Acetaminophen (Tylenol 325mg Tab) 650 mg PO Q4H PRN PRN Reason: Temp >100 Acetazolamide (Diamox 250 Mg Tab) 250 mg PO BID [facility] Last Admin: 12/20/17 08:41 Dose: 250 mg Acetylcysteine (Acetylcysteine 20%) 2 ml INH RBID [facility] Last Admin: 12/20/17 07:27 Dose: 2 ml Al Hydrox/Mg Hydrox/Simethicone (Maalox Plus 30 Ml) 30 ml PO Q4H PRN PRN Reason: heartburn/indigestion Albuterol Sulfate (Albuterol 0.083% Inhal Ro (2.5 Mg/3 Ml) Ud) 2.5 mg INH RQ4 PRN PRN Reason: Shortness of Breath Last Admin: 12/19/17 10:11 Dose: 2.5 mg Albuterol/Ipratropium (Duoneb 3 Mg/0.5 Mg (3 Ml) Ud) 3 ml INH RQID [facility] Last Admin: 12/20/17 10:59 Dose: 3 ml Aspirin (Ecotrin) 81 mg PO DAILY [facility] Last Admin: 12/20/17 08:42 Dose: 81 mg Calcium Carbonate (Oscal) 500 mg PO BID [facility] Last Admin: 12/20/17 08:42 Dose: 500 mg Dimethicone (Proshield Plus Skin Protectant) 1 applic TOP Q8 [facility] Last Admin: 12/20/17 08:44 Dose: 1 applic Furosemide (Lasix) 40 mg PO DAILY [facility] Last Admin: 12/20/17 08:43 Dose: 40 mg Vancomycin HCl 1 gm/ Sodium (Chloride) 250 mls @ 166.667 mls/hr IVPB DAILY [facility] PRN Reason: Protocol Last Admin: 12/19/17 08:19 Dose: 166.667 mls/hr Meropenem 500 mg/ Sodium (Chloride) 100 mls @ 100 mls/hr IVPB Q8 [facility] PRN Reason: Protocol Last Admin: 12/20/17 08:44 Dose: 100 mls/hr Insulin Detemir (Levemir) 10 units SC [facility] Last Admin: 12/19/17 22:26 Dose: 10 units Insulin Human Regular (Humulin R) 0 units SC ACCU-CHECK [facility] PRN Reason: Protocol Last Admin: 12/20/17 12:30 Dose: 2 units Lidocaine (Lidoderm) 1 ea TD DAILY [facility] Last Admin: 12/20/17 08:43 Dose: Not Given Magnesium Hydroxide (Milk Of Magnesia) 30 ml PO DAILY PRN PRN Reason: Constipation Methylprednisolone (Solu-Medrol) 20 mg IVP DAILY [facility] Last Admin: 12/20/17 08:41 Dose: 20 mg Montelukast Sodium (Singulair) 10 mg PO HS [facility] Last Admin: 12/19/17 22:26 Dose: 10 mg Multivitamins/Minerals (Therapeutic-M Tab) 1 tab PO DAILY [facility] Last Admin: 12/20/17 08:42 Dose: 1 tab Pantoprazole Sodium (Protonix Ec Tab) 40 mg PO DAILY [facility] Last Admin: 12/20/17 08:40 Dose: 40 mg Silver Sulfadiazine (Silvadene 1% 20 Gm) 1 ea TOP QSHIFT [facility] Tramadol HCl (Ultram) 50 mg PO Q8H PRN PRN Reason: Pain, moderate (4-7) Last Admin: 12/15/17 10:53 Dose: 50 mg Valsartan (Diovan) 80 mg PO DAILY [facility] Last Admin: 12/20/17 08:43 Dose: 80 mg Verapamil HCl (Calan Sr Tab) 240 mg PO DAILY [facility] Last Admin: 12/20/17 08:43 Dose: 240 mg - Labs Labs: 12/20/17 07:00 12/20/17 07:00 PT 10.3 Seconds (9.8-13.1) 12/14/17 15:08 INR 0.9 (0.9-1.2) 12/14/17 15:08 APTT 27.7 Seconds (25.6-37.1) 12/14/17 15:08 Assessment and Plan - Assessment and Plan (Free Text) Assessment: - Constitutional Appears: No Acute Distress, Chronically Ill - Head Exam Head Exam: NORMAL INSPECTION, NORMOCEPHALIC - Eye Exam Eye Exam: EOMI, Normal appearance Pupil Exam: NORMAL ACCOMMODATION - ENT Exam ENT Exam: Mucous Membranes Dry, Normal External Ear Exam - Neck Exam Neck Exam: Full ROM. absent: Meningismus - Respiratory Exam Respiratory Exam: Minimal Rales, Rhonchi, decrease air entry left No Wheeze, - Cardiovascular Exam Cardiovascular Exam: REGULAR RHYTHM, +S1, +S2 - GI/Abdominal Exam GI & Abdominal Exam: Distended, Soft, Normal Bowel Sounds. absent: Tenderness - Extremities Exam Extremities Exam: Normal Capillary Refill. absent: Calf Tenderness, Joint Swelling - Neurological Exam Neurological Exam: Awake Neuro motor strength exam: Left Upper Extremity: 4, Right Upper Extremity: 4, Left Lower Extremity: 4, Right Lower Extremity: 4 Additional comments: oriented to person and place - Psychiatric Exam Psychiatric exam: normal mood and affect - Skin Skin Exam: Dry, Pallor, Warm Assessment and Plan 82 y/o Female, well known to our service from previous multiple admissions, Hx of CAD, CHF, COPD , sent from [facility] of fever , cough . Found to be hypotensive on admission. CT of chest showed :Progressive consolidative changes/ atelectasis primarily affecting the left lower lobe. Patient was admitted with diagnosis of sepsis and started on IV antibiotics.Pulmonary and ID were consulted Her urine cx reported positive for E. Coli and blood cx positive for corynobacter species Patient developed acute on chronic respiratory failure with hypoxemia and hypercapnia due to COPD and CHF exacerbation . She was placed on High Flow O2 via NC with very slow improvement CXR repeated 12/14 showed opacification of left hemithorax due to mucus plug She underwent bronchoscopy 12/16 that showed mucus plugs 12/19 noted to be dyspneic , with poor air entry to left hemithorax - High Flow increased to 50% 12/20 : sl better than yesterday but still with dyspnea - High Flow 30L/30% 1. Mucus Plugging with total opacification of left hemithorax s/p Bronchoscopy - mucus suctioned out Still with SOB and poor air entry to left hemithorax , unable to expectorate With weak cough, start Mucinex LA bid Chest Physiotherapy Continue Duonebs and acetylcysteine INH On High Flow O2 via NC 30L/30% pulmonary following 2. Sepsis secondary to Nosocomial left upper/lower lobe pneumonia, bacteremia and UTI Pt was hypotensive on admission, with leukocytosis, tachycardia urine cx positive for E. Coli Blood cx positive for Corynobacter species CXR showed LLL infiltrate ID on consult on Meropenem and vancomycin - Vanco d/c today 12/[address] Mackay 3. Acute on Chronic Respiratory Failure Hypoxic, herpercapneic , on Home Oxygen sec to COPD and CHF plus PNA and Mucus plugging on high flow 30 LPM FIo2 30% Continue Solumedrol 20 Mg IV daily Continue duonebs, IV antibiotics , lasix , diamox 4.Acute on Chronic CHF, systolic and diastolic dysfunction, with minimally elevated troponin ECHO done last year showed EF 35%. Repeat Echo on previous admission showed normal EF on ARB and verapamil no BB due to COPD restarted lasix 5. COPD exacerbation Continue Solumedrol 20 mg Iv daily Pulmonary on consult cont Albuterol neb tx with Mucomyst 6. UTI Urine c/s : ESBL E coli previous cultures showed ESBL E coli - ? colonization vs infection on Meropenem as per ID 7. Troponin Elevation likely due to demand ischemia due to Sepsis Troponin now normal had elevated Trop on previous admission cont ASA LDL normal on previous admission no BB sec to COPD 8.Anemia of chronic disease Stable 9. 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 DM type II with hyperglycemia Accuchecks elevated last 24 hours Increase levemir from 8 to 10 units SQ Accucheck with coverage 11.Anxiety and depression Feeling extra anxious today . Given 1 dose 0.25 mg Po Xanax on Temazepam and trazodone 12. Chronic pain on lidoderm patch to lower back, tramadol 13. Hypertension Continue Verapamil , Valsartan and lasix 14. DVT prophylaxis on Lovenox
--- NOTE | 2017-12-20 13:33 | CP.PCM.PN ---
Subjective - Date & Time of Evaluation Date of Evaluation: 12/20/17 Time of Evaluation: 09:00 - Subjective Subjective: remains weak and bedridden with congestion but no fever Objective - Vital Signs/Intake and Output Vital Signs (last 24 hours): Temp Pulse Resp BP Pulse Ox 98.4 F 79 20 123/67 100 12/20/17 13:00 12/20/17 13:00 12/20/17 13:00 12/20/17 13:00 12/20/17 13:00 Intake and Output: 12/20/17 12/20/17 06:59 18:59 Intake Total 300 Balance 300 - Medications Medications: Current Medications Acetaminophen (Tylenol 325mg Tab) 650 mg PO Q4H PRN PRN Reason: Pain, Mild (1-3) Last Admin: 12/14/17 18:07 Dose: 650 mg Acetaminophen (Tylenol 325mg Tab) 650 mg PO Q4H PRN PRN Reason: Temp >100 Acetazolamide (Diamox 250 Mg Tab) 250 mg PO BID [facility] Last Admin: 12/20/17 08:41 Dose: 250 mg Acetylcysteine (Acetylcysteine 20%) 2 ml INH RBID [facility] Last Admin: 12/20/17 07:27 Dose: 2 ml Al Hydrox/Mg Hydrox/Simethicone (Maalox Plus 30 Ml) 30 ml PO Q4H PRN PRN Reason: heartburn/indigestion Albuterol Sulfate (Albuterol 0.083% Inhal Ro (2.5 Mg/3 Ml) Ud) 2.5 mg INH RQ4 PRN PRN Reason: Shortness of Breath Last Admin: 12/19/17 10:11 Dose: 2.5 mg Albuterol/Ipratropium (Duoneb 3 Mg/0.5 Mg (3 Ml) Ud) 3 ml INH RQID [facility] Last Admin: 12/20/17 10:59 Dose: 3 ml Aspirin (Ecotrin) 81 mg PO DAILY [facility] Last Admin: 12/20/17 08:42 Dose: 81 mg Calcium Carbonate (Oscal) 500 mg PO BID [facility] Last Admin: 12/20/17 08:42 Dose: 500 mg Dimethicone (Proshield Plus Skin Protectant) 1 applic TOP Q8 [facility] Last Admin: 12/20/17 08:44 Dose: 1 applic Furosemide (Lasix) 40 mg PO DAILY [facility] Last Admin: 02/11/18 08:43 Dose: 40 mg Vancomycin HCl 1 gm/ Sodium (Chloride) 250 mls @ 166.667 mls/hr IVPB DAILY [facility] PRN Reason: Protocol Last Admin: 12/19/17 08:19 Dose: 166.667 mls/hr Meropenem 500 mg/ Sodium (Chloride) 100 mls @ 100 mls/hr IVPB Q8 [facility] PRN Reason: Protocol Last Admin: 12/20/17 08:44 Dose: 100 mls/hr Insulin Detemir (Levemir) 10 units SC [facility] Last Admin: 12/19/17 22:26 Dose: 10 units Insulin Human Regular (Humulin R) 0 units SC ACCU-CHECK [facility] PRN Reason: Protocol Last Admin: 12/20/17 12:30 Dose: 2 units Lidocaine (Lidoderm) 1 ea TD DAILY [facility] Last Admin: 12/20/17 08:43 Dose: Not Given Magnesium Hydroxide (Milk Of Magnesia) 30 ml PO DAILY PRN PRN Reason: Constipation Methylprednisolone (Solu-Medrol) 20 mg IVP DAILY [facility] Last Admin: 12/20/17 08:41 Dose: 20 mg Montelukast Sodium (Singulair) 10 mg PO HS [facility] Last Admin: 12/19/17 22:26 Dose: 10 mg Multivitamins/Minerals (Therapeutic-M Tab) 1 tab PO DAILY [facility] Last Admin: 12/20/17 08:42 Dose: 1 tab Pantoprazole Sodium (Protonix Ec Tab) 40 mg PO DAILY [facility] Last Admin: 12/20/17 08:40 Dose: 40 mg Silver Sulfadiazine (Silvadene 1% 20 Gm) 1 ea TOP QSHIFT [facility] Tramadol HCl (Ultram) 50 mg PO Q8H PRN PRN Reason: Pain, moderate (4-7) Last Admin: 12/15/17 10:53 Dose: 50 mg Valsartan (Diovan) 80 mg PO DAILY [facility] Last Admin: 12/20/17 08:43 Dose: 80 mg Verapamil HCl (Calan Sr Tab) 240 mg PO DAILY [facility] Last Admin: 12/20/17 08:43 Dose: 240 mg - Labs Labs: 12/20/17 07:00 12/20/17 07:00 PT 10.3 Seconds (9.8-13.1) 12/14/17 15:08 INR 0.9 (0.9-1.2) 12/14/17 15:08 APTT 27.7 Seconds (25.6-37.1) 12/14/17 15:08 - Constitutional Appears: Non-toxic, Confused, Chronically Ill - Head Exam Head Exam: NORMOCEPHALIC - Eye Exam Eye Exam: PERRL. absent: Scleral icterus - ENT Exam ENT Exam: Mucous Membranes Dry - Neck Exam Neck Exam: absent: Lymphadenopathy - Respiratory Exam Respiratory Exam: Decreased Breath Sounds, Rhonchi - Cardiovascular Exam Cardiovascular Exam: REGULAR RHYTHM, +S1, +S2 - GI/Abdominal Exam GI & Abdominal Exam: Distended, Soft - Rectal Exam Rectal Exam: Deferred Assessment and Plan (1) Pneumonia Status: Acute (2) Dehydration Status: Acute (3) Diabetes Status: Acute (4) ESBL (extended spectrum beta-lactamase) producing bacteria infection Status: Acute - Assessment and Plan (Free Text) Assessment: poor overall prognosis cont rx for now
--- NOTE | 2017-12-20 14:01 | CP.PCM.PN ---
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 UP seen and examined, in mod respiratory disress O: vs as below gne: mild respiratory distres slcera anicteric op clear neck supple cv +s1+s2 lungs coarse bs abd: soft ext: no edema neuro: follows command psych: flat skin: no rash imp: alkalemia/ hypertension/ chf/ copd plan: renal function stable alkalemia stable bp reasoanbly controlled breathing improved f/u pulm and cardiology Objective - Vital Signs/Intake and Output Vital Signs (last 24 hours): Temp Pulse Resp BP Pulse Ox 98.4 F 79 20 123/67 100 12/20/17 13:00 12/20/17 13:00 12/20/17 13:00 12/20/17 13:00 12/20/17 13:00 Intake and Output: 12/20/17 12/20/17 06:59 18:59 Intake Total 300 Balance 300 - Medications Medications: Current Medications Acetaminophen (Tylenol 325mg Tab) 650 mg PO Q4H PRN PRN Reason: Pain, Mild (1-3) Last Admin: 12/14/17 18:07 Dose: 650 mg Acetaminophen (Tylenol 325mg Tab) 650 mg PO Q4H PRN PRN Reason: Temp >100 Acetazolamide (Diamox 250 Mg Tab) 250 mg PO BID [facility] Last Admin: 12/20/17 08:41 Dose: 250 mg Acetylcysteine (Acetylcysteine 20%) 2 ml INH RBID [facility] Last Admin: 12/20/17 07:27 Dose: 2 ml Al Hydrox/Mg Hydrox/Simethicone (Maalox Plus 30 Ml) 30 ml PO Q4H PRN PRN Reason: heartburn/indigestion Albuterol Sulfate (Albuterol 0.083% Inhal Ro (2.5 Mg/3 Ml) Ud) 2.5 mg INH RQ4 PRN PRN Reason: Shortness of Breath Last Admin: 12/19/17 10:11 Dose: 2.5 mg Albuterol/Ipratropium (Duoneb 3 Mg/0.5 Mg (3 Ml) Ud) 3 ml INH RQID [facility] Last Admin: 12/20/17 10:59 Dose: 3 ml Aspirin (Ecotrin) 81 mg PO DAILY [facility] Last Admin: 12/20/17 08:42 Dose: 81 mg Calcium Carbonate (Oscal) 500 mg PO BID [facility] Last Admin: 12/20/17 08:42 Dose: 500 mg Dimethicone (Proshield Plus Skin Protectant) 1 applic TOP Q8 [facility] Last Admin: 12/20/17 08:44 Dose: 1 applic Furosemide (Lasix) 40 mg PO DAILY [facility] Last Admin: 12/20/17 08:43 Dose: 40 mg Meropenem 500 mg/ Sodium (Chloride) 100 mls @ 100 mls/hr IVPB Q8 [facility] PRN Reason: Protocol Last Admin: 12/20/17 08:44 Dose: 100 mls/hr Insulin Detemir (Levemir) 10 units SC HS [facility] Last Admin: 12/19/17 22:26 Dose: 10 units Insulin Human Regular (Humulin R) 0 units SC ACCU-CHECK [facility] PRN Reason: Protocol Last Admin: 12/20/17 12:30 Dose: 2 units Lidocaine (Lidoderm) 1 ea TD DAILY [facility] Last Admin: 12/20/17 08:43 Dose: Not Given Magnesium Hydroxide (Milk Of Magnesia) 30 ml PO DAILY PRN PRN Reason: Constipation Methylprednisolone (Solu-Medrol) 20 mg IVP DAILY [facility] Last Admin: 12/20/17 08:41 Dose: 20 mg Montelukast Sodium (Singulair) 10 mg PO HS [facility] Last Admin: 12/19/17 22:26 Dose: 10 mg Multivitamins/Minerals (Therapeutic-M Tab) 1 tab PO DAILY [facility] Last Admin: 12/20/17 08:42 Dose: 1 tab Pantoprazole Sodium (Protonix Ec Tab) 40 mg PO DAILY [facility] Last Admin: 12/20/17 08:40 Dose: 40 mg Silver Sulfadiazine (Silvadene 1% 20 Gm) 1 ea TOP QSHIFT [facility] Tramadol HCl (Ultram) 50 mg PO Q8H PRN PRN Reason: Pain, moderate (4-7) Last Admin: 12/15/17 10:53 Dose: 50 mg Valsartan (Diovan) 80 mg PO DAILY [facility] Last Admin: 12/20/17 08:43 Dose: 80 mg Verapamil HCl (Calan Sr Tab) 240 mg PO DAILY [facility] Last Admin: 12/20/17 08:43 Dose: 240 mg - Labs Labs: 12/20/17 07:00 12/20/17 07:00 PT 10.3 Seconds (9.8-13.1) 12/14/17 15:08 INR 0.9 (0.9-1.2) 12/14/17 15:08 APTT 27.7 Seconds (25.6-37.1) 12/14/17 15:08
[2017-12-20] MEDS: guaiFENesin 600 mg ER Tab PO SCH (21:44)
[2017-12-20] MEDS: Insulin Detemir 100 Units/ml Inj SC SCH (21:45)
[2017-12-21] MEDS: Meropenem 500 MG in Sodium Chloride 0.9% 100 ML IVPB SCH ×3 (00:04→17:50)
[2017-12-21] MEDS: Proshield Plus GEL TOP SCH ×3 (00:04→17:55)
[2017-12-21] MEDS: Acetylcysteine 20% Inhal Soln (4ml) INH SCH ×2 (07:27→19:13)
[2017-12-21] MEDS: Albuterol-Ipratrop 3 mg / 0.5 (3 ml) UD INH SCH ×4 (07:28→19:13)
[2017-12-21] MEDS: Insulin Regular 100 units/ml SC SCH ×4 (08:44→23:00)
[2017-12-21] MEDS: MethylPREDNISolone 40 mg Vial IVP SCH (08:46)
[2017-12-21] MEDS: Verapamil 240 mg ER Tab PO SCH (08:48)
[2017-12-21] MEDS: guaiFENesin 600 mg ER Tab PO SCH ×2 (08:49→21:46)
[2017-12-21] MEDS: Pantoprazole 40 mg EC Tab PO SCH (08:51)
[2017-12-21] MEDS: Lidocaine 5% Patch TD SCH (08:51)
[2017-12-21] MEDS: Multivitamin With Minerals Tab PO SCH (08:51)
--- NOTE | 2017-12-21 10:49 | CP.PCM.PN ---
Subjective - Date & Time of Evaluation Date of Evaluation: 12/21/17 Time of Evaluation: 10:00 - Subjective Subjective: No fever still with dyspnea on High Flow Oxygen 30/30% Traditional Chest Physiotherapy being done Pt may need to go to Facility That allows High Flow Oxygen denies CP no abd pain Objective - Vital Signs/Intake and Output Vital Signs (last 24 hours): Temp Pulse Resp BP Pulse Ox 97.5 F L 79 20 113/64 99 12/21/17 05:11 12/21/17 08:48 12/21/17 07:28 12/21/17 08:52 12/21/17 05:11 - Medications Medications: Current Medications Acetaminophen (Tylenol 325mg Tab) 650 mg PO Q4H PRN PRN Reason: Pain, Mild (1-3) Last Admin: 12/14/17 18:07 Dose: 650 mg Acetaminophen (Tylenol 325mg Tab) 650 mg PO Q4H PRN PRN Reason: Temp >100 Acetazolamide (Diamox 250 Mg Tab) 250 mg PO BID [facility] Last Admin: 12/21/17 08:50 Dose: 250 mg Acetylcysteine (Acetylcysteine 20%) 2 ml INH RBID [facility] Last Admin: 12/21/17 07:27 Dose: 2 ml Al Hydrox/Mg Hydrox/Simethicone (Maalox Plus 30 Ml) 30 ml PO Q4H PRN PRN Reason: heartburn/indigestion Albuterol Sulfate (Albuterol 0.083% Inhal Ro (2.5 Mg/3 Ml) Ud) 2.5 mg INH RQ4 PRN PRN Reason: Shortness of Breath Last Admin: 12/19/17 10:11 Dose: 2.5 mg Albuterol/Ipratropium (Duoneb 3 Mg/0.5 Mg (3 Ml) Ud) 3 ml INH RQID [facility] Last Admin: 12/21/17 07:28 Dose: 3 ml Aspirin (Ecotrin) 81 mg PO DAILY [facility] Last Admin: 12/21/17 08:51 Dose: 81 mg Calcium Carbonate (Oscal) 500 mg PO BID [facility] Last Admin: 12/21/17 08:52 Dose: 500 mg Dimethicone (Proshield Plus Skin Protectant) 1 applic TOP Q8 [facility] Last Admin: 12/21/17 08:52 Dose: 1 applic Furosemide (Lasix) 40 mg PO DAILY [facility] Last Admin: 12/21/17 08:52 Dose: 40 mg Guaifenesin (Mucinex La) 1,200 mg PO Q12 [facility] Last Admin: 12/21/17 08:49 Dose: 1,200 mg Meropenem 500 mg/ Sodium (Chloride) 100 mls @ 100 mls/hr IVPB Q8 [facility] PRN Reason: Protocol Last Admin: 12/21/17 08:44 Dose: 100 mls/hr Insulin Detemir (Levemir) 10 units SC HS [facility] Last Admin: 12/20/17 21:45 Dose: 10 units Insulin Human Regular (Humulin R) 0 units SC ACCU-CHECK [facility] PRN Reason: Protocol Last Admin: 12/21/17 08:44 Dose: 2 units Lidocaine (Lidoderm) 1 ea TD DAILY [facility] Last Admin: 12/21/17 08:51 Dose: Not Given Magnesium Hydroxide (Milk Of Magnesia) 30 ml PO DAILY PRN PRN Reason: Constipation Methylprednisolone (Solu-Medrol) 20 mg IVP DAILY [facility] Last Admin: 12/21/17 08:46 Dose: 20 mg Montelukast Sodium (Singulair) 10 mg PO HS [facility] Last Admin: 12/20/17 21:44 Dose: 10 mg Multivitamins/Minerals (Therapeutic-M Tab) 1 tab PO DAILY [facility] Last Admin: 12/21/17 08:51 Dose: 1 tab Pantoprazole Sodium (Protonix Ec Tab) 40 mg PO DAILY [facility] Last Admin: 12/21/17 08:51 Dose: 40 mg Silver Sulfadiazine (Silvadene 1% 20 Gm) 1 ea TOP QSHIFT [facility] Tramadol HCl (Ultram) 50 mg PO Q8H PRN PRN Reason: Pain, moderate (4-7) Last Admin: 12/15/17 10:53 Dose: 50 mg Valsartan (Diovan) 80 mg PO DAILY [facility] Last Admin: 12/21/17 08:48 Dose: 80 mg Verapamil HCl (Calan Sr Tab) 240 mg PO DAILY [facility] Last Admin: 12/21/17 08:48 Dose: 240 mg - Labs Labs: 12/20/17 07:00 12/20/17 07:00 PT 10.3 Seconds (9.8-13.1) 12/14/17 15:08 INR 0.9 (0.9-1.2) 12/14/17 15:08 APTT 27.7 Seconds (25.6-37.1) 12/14/17 15:08 - Constitutional Appears: No Acute Distress, Chronically Ill - Head Exam Head Exam: NORMAL INSPECTION, NORMOCEPHALIC - Eye Exam Eye Exam: EOMI, Normal appearance Pupil Exam: NORMAL ACCOMMODATION - ENT Exam ENT Exam: Mucous Membranes Dry, Normal External Ear Exam - Neck Exam Neck Exam: Full ROM. absent: Meningismus - Respiratory Exam Respiratory Exam: Minimal Rales, Rhonchi, decrease air entry left No Wheeze, - Cardiovascular Exam Cardiovascular Exam: REGULAR RHYTHM, +S1, +S2 - GI/Abdominal Exam GI & Abdominal Exam: Distended, Soft, Normal Bowel Sounds. absent: Tenderness - Extremities Exam Extremities Exam: Normal Capillary Refill. absent: Calf Tenderness, Joint Swelling - Neurological Exam Neurological Exam: Awake Neuro motor strength exam: Left Upper Extremity: 4, Right Upper Extremity: 4, Left Lower Extremity: 4, Right Lower Extremity: 4 Additional comments: oriented to person and place - Psychiatric Exam Psychiatric exam: normal mood and affect - Skin Skin Exam: Dry, Pallor, Warm Assessment and Plan - Assessment and Plan (Free Text) Assessment: 82 y/o Female, well known to our service from previous multiple admissions, Hx of CAD, CHF, COPD , sent from [facility] of fever , cough . Found to be hypotensive on admission. CT of chest showed :Progressive consolidative changes/ atelectasis primarily affecting the left lower lobe. Patient was admitted with diagnosis of sepsis and started on IV antibiotics. Pulmonary and ID were consulted Her urine cx reported positive for E. Coli and blood cx positive for Corynebacter species Patient developed acute on chronic respiratory failure with hypoxemia and hypercapnia due to COPD and CHF exacerbation . She was placed on High Flow O2 via NC with very slow improvement CXR repeated 12/14 showed opacification of left hemithorax due to mucus plug She underwent bronchoscopy 12/16 that showed mucus plugs 12/19 noted to be dyspneic , with poor air entry to left hemithorax - High Flow increased to 50% 12/20 : sl better than yesterday but still with dyspnea - High Flow 30L/30% 1. Mucus Plugging with total opacification of left hemithorax s/p Bronchoscopy - mucus suctioned out Still with SOB and poor air entry to left hemithorax , unable to expectorate With weak cough Chest Physiotherapy- traditional q 4 Continue Duonebs and acetylcysteine INH cont Mucinex On High Flow O2 via NC 30L/30% pulmonary following rpt CXR today Pt may need to be d/c on High Flow Oxygen 2. Sepsis secondary to Nosocomial left upper/lower lobe pneumonia, bacteremia and UTI Pt was hypotensive on admission, with leukocytosis, tachycardia urine cx positive for E. Coli Blood cx positive for Corynebacter species CXR showed LLL infiltrate ID Dr Mackay on Meropenem completed IV Vanco tx 3. Acute on Chronic Respiratory Failure Hypoxic, herpercapneic , on Home Oxygen sec to COPD and CHF plus PNA and Mucus plugging on high flow 30 LPM FIO2 30% Continue Solumedrol 20 Mg IV daily Continue duonebs, IV antibiotics , lasix , diamox 4.Acute on Chronic CHF, systolic and diastolic dysfunction, with minimally elevated troponin ECHO done last year showed EF 35%. Repeat Echo on previous admission showed normal EF on ARB and verapamil no BB due to COPD cont Lasix 5. COPD exacerbation Continue Solumedrol 20 mg Iv daily Pulmonary on consult cont Albuterol neb tx with Mucomyst 6. UTI Urine c/s : ESBL E coli previous cultures showed ESBL E coli on Meropenem as per ID 7. Troponin Elevation likely due to demand ischemia due to Sepsis Troponin now normal had elevated Trop on previous admission cont ASA LDL normal on previous admission no BB sec to COPD 8.Anemia of chronic disease Stable 9. 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 DM type II with hyperglycemia Accuchecks elevated last 24 hours cont Levemir 10 units SQ Accucheck with coverage 11.Anxiety and depression on Temazepam and trazodone 12. Chronic pain on lidoderm patch to lower back, tramadol 13. Hypertension Continue Verapamil , Valsartan and lasix 14. DVT prophylaxis on Lovenox
--- NOTE | 2017-12-21 11:46 | CP.PCM.PN ---
Subjective - Date & Time of Evaluation Date of Evaluation: 12/21/17 Time of Evaluation: 11:41 - Subjective Subjective: Seated upright in bed in no acute distress. Congested, nonproductive cough when coached. SPO2 94% on high flow nasal cannula 30/30. No chest x-ray done this morning. Becomes dyspneic with conversation. Vital signs have remained stable. Dullness on percussion is noted in the left lower lobe region. Breath sounds in the same area are absent. Breath sounds and remainder of the lung knutson are diminished. Scattered expiratory wheezes are heard bilaterally. Sonorous rhonchi are heard bilaterally. Patient would require traditional chest physical therapy using clapping and coughing in a side lying position with the left lung superior. Patient's clinical condition is poor and she is unable to resolve this problem of mucous plugging in the left main bronchus. Continue current medical therapy as well as chest physical therapy. Prognosis is poor. Objective - Vital Signs/Intake and Output Vital Signs (last 24 hours): Temp Pulse Resp BP Pulse Ox 97.5 F L 79 20 113/64 98 12/21/17 09:00 12/21/17 09:00 12/21/17 09:00 12/21/17 09:00 12/21/17 09:00 Intake and Output: 12/20/17 12/21/17 23:59 11:59 Intake Total 300 Output Total 1000 Balance -1000 300 - Medications Medications: Current Medications Acetaminophen (Tylenol 325mg Tab) 650 mg PO Q4H PRN PRN Reason: Pain, Mild (1-3) Last Admin: 12/14/17 18:07 Dose: 650 mg Acetaminophen (Tylenol 325mg Tab) 650 mg PO Q4H PRN PRN Reason: Temp >100 Acetazolamide (Diamox 250 Mg Tab) 250 mg PO BID [facility] Last Admin: 12/21/17 08:50 Dose: 250 mg Acetylcysteine (Acetylcysteine 20%) 2 ml INH RBID [facility] Last Admin: 12/21/17 07:27 Dose: 2 ml Al Hydrox/Mg Hydrox/Simethicone (Maalox Plus 30 Ml) 30 ml PO Q4H PRN PRN Reason: heartburn/indigestion Albuterol Sulfate (Albuterol 0.083% Inhal Ro (2.5 Mg/3 Ml) Ud) 2.5 mg INH RQ4 PRN PRN Reason: Shortness of Breath Last Admin: 12/19/17 10:11 Dose: 2.5 mg Albuterol/Ipratropium (Duoneb 3 Mg/0.5 Mg (3 Ml) Ud) 3 ml INH RQID [facility] Last Admin: 12/21/17 07:28 Dose: 3 ml Aspirin (Ecotrin) 81 mg PO DAILY [facility] Last Admin: 12/21/17 08:51 Dose: 81 mg Calcium Carbonate (Oscal) 500 mg PO BID [facility] Last Admin: 12/21/17 08:52 Dose: 500 mg Dimethicone (Proshield Plus Skin Protectant) 1 applic TOP Q8 [facility] Last Admin: 12/21/17 08:52 Dose: 1 applic Furosemide (Lasix) 40 mg PO DAILY [facility] Last Admin: 12/21/17 08:52 Dose: 40 mg Guaifenesin (Mucinex La) 1,200 mg PO Q12 [facility] Last Admin: 12/21/17 08:49 Dose: 1,200 mg Meropenem 500 mg/ Sodium (Chloride) 100 mls @ 100 mls/hr IVPB Q8 [facility] PRN Reason: Protocol Last Admin: 12/21/17 08:44 Dose: 100 mls/hr Insulin Detemir (Levemir) 10 units SC HS [facility] Last Admin: 12/20/17 21:45 Dose: 10 units Insulin Human Regular (Humulin R) 0 units SC ACCU-CHECK [facility] PRN Reason: Protocol Last Admin: 12/21/17 08:44 Dose: 2 units Lidocaine (Lidoderm) 1 ea TD DAILY [facility] Last Admin: 12/21/17 08:51 Dose: Not Given Magnesium Hydroxide (Milk Of Magnesia) 30 ml PO DAILY PRN PRN Reason: Constipation Methylprednisolone (Solu-Medrol) 20 mg IVP DAILY [facility] Last Admin: 12/21/17 08:46 Dose: 20 mg Montelukast Sodium (Singulair) 10 mg PO HS [facility] Last Admin: 12/20/17 21:44 Dose: 10 mg Multivitamins/Minerals (Therapeutic-M Tab) 1 tab PO DAILY [facility] Last Admin: 12/21/17 08:51 Dose: 1 tab Pantoprazole Sodium (Protonix Ec Tab) 40 mg PO DAILY [facility] Last Admin: 12/21/17 08:51 Dose: 40 mg Silver Sulfadiazine (Silvadene 1% 20 Gm) 1 ea TOP QSHIFT [facility] Tramadol HCl (Ultram) 50 mg PO Q8H PRN PRN Reason: Pain, moderate (4-7) Last Admin: 12/15/17 10:53 Dose: 50 mg Valsartan (Diovan) 80 mg PO DAILY [facility] Last Admin: 12/21/17 08:48 Dose: 80 mg Verapamil HCl (Calan Sr Tab) 240 mg PO DAILY [facility] Last Admin: 12/21/17 08:48 Dose: 240 mg - Labs Labs: 12/20/17 07:00 12/20/17 07:00 PT 10.3 Seconds (9.8-13.1) 12/14/17 15:08 INR 0.9 (0.9-1.2) 12/14/17 15:08 APTT 27.7 Seconds (25.6-37.1) 12/14/17 15:08 Assessment and Plan (1) Hypercapnic respiratory failure, chronic Status: Chronic (2) Atelectasis, left Status: Acute (3) COPD (chronic obstructive pulmonary disease) Status: Chronic
--- NOTE | 2017-12-21 17:18 | RAD ---
HISTORY: nucus plugging, left lung ff up COMPARISON: 12/19/2017 FINDINGS: LUNGS: Persistent consolidative changes left lower lobe. PLEURA: No significant pleural effusion identified, no pneumothorax apparent. CARDIOVASCULAR: No radiographic findings to suggest acute or significant cardiovascular disease. OSSEOUS STRUCTURES: No significant abnormalities. VISUALIZED UPPER ABDOMEN: Normal. OTHER FINDINGS: None. IMPRESSION: No significant interval change compared to the prior examination(s).
[2017-12-21] MEDS: Enoxaparin 40 mg Syringe SC SCH (17:54)
[2017-12-21] MEDS: Insulin Detemir 100 Units/ml Inj SC SCH (21:43)
[2017-12-22] MEDS: Meropenem 500 MG in Sodium Chloride 0.9% 100 ML IVPB SCH ×3 (00:40→16:20)
[2017-12-22] MEDS: Proshield Plus GEL TOP SCH ×3 (01:00→16:19)
[2017-12-22 05:51] LABS: HEMOGLOBIN 10.5 g/dL (12.0-16.0); MEAN CELL VOLUME 92.9 fl (81.0-99.0); MEAN CORPUSCULAR HEMOGLOBIN 30.8 pg (27.0-31.0); MEAN CORPUSCULAR HGB CONC 33.1 g/dL (33.0-37.0); RBC 3.43 Mil/uL (3.80-5.20); WHITE BLOOD COUNT 11.3 K/uL (4.8-10.8)
[2017-12-22 06:04] LABS: CALCIUM 10.4 mg/dL (8.4-10.2)
[2017-12-22] MEDS: Insulin Regular 100 units/ml SC SCH ×4 (06:40→22:11)
[2017-12-22] MEDS: Acetylcysteine 20% Inhal Soln (4ml) INH SCH ×2 (07:29→19:49)
[2017-12-22] MEDS: Albuterol-Ipratrop 3 mg / 0.5 (3 ml) UD INH SCH ×4 (07:30→19:49)
[2017-12-22] MEDS: Pantoprazole 40 mg EC Tab PO SCH (09:09)
[2017-12-22] MEDS: Lidocaine 5% Patch TD SCH (09:09)
[2017-12-22] MEDS: Enoxaparin 40 mg Syringe SC SCH (09:09)
[2017-12-22] MEDS: guaiFENesin 600 mg ER Tab PO SCH ×2 (09:10→21:18)
[2017-12-22] MEDS: MethylPREDNISolone 40 mg Vial IVP SCH (09:11)
[2017-12-22] MEDS: Multivitamin With Minerals Tab PO SCH (09:11)
--- NOTE | 2017-12-22 09:13 | PN ---
DHATE: SUBJECTIVE: The patient sitting up, appeared to be comfortable somewhat. PHYSICAL EXAMINATION: VITAL SIGNS: Noted with the blood pressure 113/64, pulse 76, temperature normal. CHEST: Few rhonchi. HEART: No rubs. NECK: Supple. ABDOMEN: Soft. EXTREMITIES: No edema. LABORATORY DATA: Showed the CO2 still around 34, which has been stable and BUN 36, creatinine 0.9. The rest of the electrolyte unremarkable. IMPRESSION: The patient is having metabolic alkalosis that has been improving and recovering slowly. Continue Diamox as ordered, and the patient is improving. Jorge Luis Ingram MD
[2017-12-22] MEDS ORDERED: Verapamil 120 mg ER Tab PO SCH (10:30)
--- NOTE | 2017-12-22 10:49 | CP.PCM.PN ---
Subjective - Date & Time of Evaluation Date of Evaluation: 12/22/17 Time of Evaluation: 10:47 - Subjective Subjective: Patient sitting gallop in bed she was having Breakfast Normal nausea or vomiting No abdominal pain Objective - Vital Signs/Intake and Output Vital Signs (last 24 hours): Temp Pulse Resp BP Pulse Ox 97.4 F L 82 18 121/72 98 12/22/17 08:47 12/22/17 08:47 12/22/17 08:47 12/22/17 09:08 12/22/17 08:47 Intake and Output: 12/22/17 12/22/17 06:59 18:59 Intake Total 250 Output Total 600 Balance -350 - Medications Medications: Current Medications Acetaminophen (Tylenol 325mg Tab) 650 mg PO Q4H PRN PRN Reason: Pain, Mild (1-3) Last Admin: 12/14/17 18:07 Dose: 650 mg Acetaminophen (Tylenol 325mg Tab) 650 mg PO Q4H PRN PRN Reason: Temp >100 Acetazolamide (Diamox 250 Mg Tab) 500 mg PO BID [facility] Acetylcysteine (Acetylcysteine 20%) 2 ml INH RBID [facility] Last Admin: 12/22/17 07:29 Dose: 2 ml Al Hydrox/Mg Hydrox/Simethicone (Maalox Plus 30 Ml) 30 ml PO Q4H PRN PRN Reason: heartburn/indigestion Albuterol Sulfate (Albuterol 0.083% Inhal Ro (2.5 Mg/3 Ml) Ud) 2.5 mg INH RQ4 PRN PRN Reason: Shortness of Breath Last Admin: 12/19/17 10:11 Dose: 2.5 mg Albuterol/Ipratropium (Duoneb 3 Mg/0.5 Mg (3 Ml) Ud) 3 ml INH RQID [facility] Last Admin: 12/22/17 07:30 Dose: 3 ml Aspirin (Ecotrin) 81 mg PO DAILY [facility] Last Admin: 12/22/17 09:10 Dose: 81 mg Calcium Carbonate (Oscal) 500 mg PO BID [facility] Last Admin: 12/22/17 09:08 Dose: 500 mg Dimethicone (Proshield Plus Skin Protectant) 1 applic TOP Q8 [facility] Last Admin: 12/22/17 09:12 Dose: 1 applic Enoxaparin Sodium (Lovenox) 40 mg SC DAILY [facility] PRN Reason: Protocol Last Admin: 12/22/17 09:09 Dose: 40 mg Furosemide (Lasix) 40 mg PO DAILY [facility] Last Admin: 12/22/17 09:08 Dose: 40 mg Guaifenesin (Mucinex La) 1,200 mg PO Q12 [facility] Last Admin: 12/22/17 09:10 Dose: 1,200 mg Meropenem 500 mg/ Sodium (Chloride) 100 mls @ 100 mls/hr IVPB Q8 [facility] PRN Reason: Protocol Last Admin: 12/22/17 09:17 Dose: 100 mls/hr Insulin Detemir (Levemir) 12 units SC HS [facility] Last Admin: 12/21/17 21:43 Dose: 12 u Insulin Human Regular (Humulin R) 0 units SC ACCU-CHECK [facility] PRN Reason: Protocol Last Admin: 12/22/17 06:40 Dose: 3 units Lidocaine (Lidoderm) 1 ea TD DAILY [facility] Last Admin: 12/22/17 09:09 Dose: 1 ea Magnesium Hydroxide (Milk Of Magnesia) 30 ml PO DAILY PRN PRN Reason: Constipation Methylprednisolone (Solu-Medrol) 20 mg IVP DAILY [facility] Last Admin: 12/22/17 09:11 Dose: 20 mg Montelukast Sodium (Singulair) 10 mg PO HS [facility] Last Admin: 12/21/17 21:46 Dose: 10 mg Multivitamins/Minerals (Therapeutic-M Tab) 1 tab PO DAILY [facility] Last Admin: 12/22/17 09:11 Dose: 1 tab Pantoprazole Sodium (Protonix Ec Tab) 40 mg PO DAILY [facility] Last Admin: 12/22/17 09:09 Dose: 40 mg Silver Sulfadiazine (Silvadene 1% 20 Gm) 1 ea TOP QSHIFT [facility] Tramadol HCl (Ultram) 50 mg PO Q8H PRN PRN Reason: Pain, moderate (4-7) Last Admin: 12/15/17 10:53 Dose: 50 mg Valsartan (Diovan) 80 mg PO DAILY [facility] Last Admin: 12/22/17 09:09 Dose: 80 mg Verapamil HCl (Calan Sr Tab) 240 mg PO DAILY [facility] - Labs Labs: 12/22/17 04:25 12/22/17 04:25 PT 10.3 Seconds (9.8-13.1) 12/14/17 15:08 INR 0.9 (0.9-1.2) 12/14/17 15:08 APTT 27.7 Seconds (25.6-37.1) 12/14/17 15:08 - Constitutional Appears: No Acute Distress - ENT Exam ENT Exam: Mucous Membranes Moist - Neck Exam Neck Exam: absent: Lymphadenopathy - Cardiovascular Exam Cardiovascular Exam: absent: Gallop, JVD, Rubs - GI/Abdominal Exam GI & Abdominal Exam: Soft, Normal Bowel Sounds - Extremities Exam Extremities Exam: absent: Calf Tenderness - Back Exam Back Exam: absent: CVA tenderness (L), CVA tenderness (R) - Neurological Exam Neurological Exam: Alert - Psychiatric Exam Psychiatric exam: Normal Affect - Skin Skin Exam: absent: Cyanosis Assessment and Plan (1) Metabolic alkalosis Assessment & Plan: CO2 rising to 35 with metabolic alkalosis and therefore we will increase Diamox 500 mg twice a day The rest of management as noted per primary team Status: Acute
--- NOTE | 2017-12-22 10:53 | CP.PCM.PN ---
Subjective - Date & Time of Evaluation Date of Evaluation: 12/22/17 Time of Evaluation: 10:53 - Subjective Subjective: Fatigued, appears weak, somnolent. CXR still has opacified left lung base. Breath sounds are still absent in the left base. Scattered rhonchi in remainder of lung knutson. Will request cough assist device. Continue all other therapies. Objective - Vital Signs/Intake and Output Vital Signs (last 24 hours): Temp Pulse Resp BP Pulse Ox 97.4 F L 82 18 121/72 98 12/22/17 08:47 12/22/17 08:47 12/22/17 08:47 12/22/17 09:08 12/22/17 08:47 Intake and Output: 12/21/17 12/22/17 23:59 11:59 Intake Total 250 Output Total 600 Balance -350 - Medications Medications: Current Medications Acetaminophen (Tylenol 325mg Tab) 650 mg PO Q4H PRN PRN Reason: Pain, Mild (1-3) Last Admin: 12/14/17 18:07 Dose: 650 mg Acetaminophen (Tylenol 325mg Tab) 650 mg PO Q4H PRN PRN Reason: Temp >100 Acetazolamide (Diamox 250 Mg Tab) 500 mg PO BID [facility] Acetylcysteine (Acetylcysteine 20%) 2 ml INH RBID [facility] Last Admin: 12/22/17 07:29 Dose: 2 ml Al Hydrox/Mg Hydrox/Simethicone (Maalox Plus 30 Ml) 30 ml PO Q4H PRN PRN Reason: heartburn/indigestion Albuterol Sulfate (Albuterol 0.083% Inhal Ro (2.5 Mg/3 Ml) Ud) 2.5 mg INH RQ4 PRN PRN Reason: Shortness of Breath Last Admin: 12/19/17 10:11 Dose: 2.5 mg Albuterol/Ipratropium (Duoneb 3 Mg/0.5 Mg (3 Ml) Ud) 3 ml INH RQID [facility] Last Admin: 12/22/17 07:30 Dose: 3 ml Aspirin (Ecotrin) 81 mg PO DAILY [facility] Last Admin: 12/22/17 09:10 Dose: 81 mg Calcium Carbonate (Oscal) 500 mg PO BID [facility] Last Admin: 12/22/17 09:08 Dose: 500 mg Dimethicone (Proshield Plus Skin Protectant) 1 applic TOP Q8 [facility] Last Admin: 12/22/17 09:12 Dose: 1 applic Enoxaparin Sodium (Lovenox) 40 mg SC DAILY [facility] PRN Reason: Protocol Last Admin: 12/22/17 09:09 Dose: 40 mg Furosemide (Lasix) 40 mg PO DAILY [facility] Last Admin: 12/22/17 09:08 Dose: 40 mg Guaifenesin (Mucinex La) 1,200 mg PO Q12 [facility] Last Admin: 12/22/17 09:10 Dose: 1,200 mg Meropenem 500 mg/ Sodium (Chloride) 100 mls @ 100 mls/hr IVPB Q8 [facility] PRN Reason: Protocol Last Admin: 12/22/17 09:17 Dose: 100 mls/hr Insulin Detemir (Levemir) 12 units SC HS [facility] Last Admin: 12/21/17 21:43 Dose: 12 u Insulin Human Regular (Humulin R) 0 units SC ACCU-CHECK [facility] PRN Reason: Protocol Last Admin: 12/22/17 06:40 Dose: 3 units Lidocaine (Lidoderm) 1 ea TD DAILY [facility] Last Admin: 12/22/17 09:09 Dose: 1 ea Magnesium Hydroxide (Milk Of Magnesia) 30 ml PO DAILY PRN PRN Reason: Constipation Methylprednisolone (Solu-Medrol) 20 mg IVP DAILY [facility] Last Admin: 12/22/17 09:11 Dose: 20 mg Montelukast Sodium (Singulair) 10 mg PO HS [facility] Last Admin: 12/21/17 21:46 Dose: 10 mg Multivitamins/Minerals (Therapeutic-M Tab) 1 tab PO DAILY [facility] Last Admin: 12/22/17 09:11 Dose: 1 tab Pantoprazole Sodium (Protonix Ec Tab) 40 mg PO DAILY [facility] Last Admin: 12/22/17 09:09 Dose: 40 mg Silver Sulfadiazine (Silvadene 1% 20 Gm) 1 ea TOP QSHIFT [facility] Tramadol HCl (Ultram) 50 mg PO Q8H PRN PRN Reason: Pain, moderate (4-7) Last Admin: 12/15/17 10:53 Dose: 50 mg Valsartan (Diovan) 80 mg PO DAILY [facility] Last Admin: 12/22/17 09:09 Dose: 80 mg Verapamil HCl (Calan Sr Tab) 240 mg PO DAILY [facility] - Labs Labs: 12/22/17 04:25 12/22/17 04:25 PT 10.3 Seconds (9.8-13.1) 12/14/17 15:08 INR 0.9 (0.9-1.2) 12/14/17 15:08 APTT 27.7 Seconds (25.6-37.1) 12/14/17 15:08 Assessment and Plan (1) Hypercapnic respiratory failure, chronic Status: Chronic (2) Atelectasis, left Status: Acute (3) COPD (chronic obstructive pulmonary disease) Status: Chronic
--- NOTE | 2017-12-22 19:17 | CP.PCM.PN ---
Subjective - Date & Time of Evaluation Date of Evaluation: 12/22/17 Time of Evaluation: 11:30 - Subjective Subjective: Patient was seen and examined bedside. Elderly female sitting in bed in upright position, appears weak,sleepy , tired with weak cough , unable to expectorate On high flow O2 via NC 30 LPM 28 % FIO2 No acute issues overnight CO2 35 CXR showed persistent left lower lung opacification and consolidation Objective - Vital Signs/Intake and Output Vital Signs (last 24 hours): Temp Pulse Resp BP Pulse Ox 97.5 F L 87 22 137/62 100 12/22/17 15:44 12/22/17 15:44 12/22/17 17:48 12/22/17 15:44 12/22/17 15:44 Intake and Output: 12/22/17 12/23/17 18:59 06:59 Intake Total 650 Output Total 1600 Balance -950 - Medications Medications: Current Medications Acetaminophen (Tylenol 325mg Tab) 650 mg PO Q4H PRN PRN Reason: Pain, Mild (1-3) Last Admin: 12/14/17 18:07 Dose: 650 mg Acetaminophen (Tylenol 325mg Tab) 650 mg PO Q4H PRN PRN Reason: Temp >100 Acetazolamide (Diamox 250 Mg Tab) 500 mg PO BID [facility] Last Admin: 12/22/17 16:21 Dose: 500 mg Acetylcysteine (Acetylcysteine 20%) 2 ml INH RBID [facility] Last Admin: 12/22/17 07:29 Dose: 2 ml Al Hydrox/Mg Hydrox/Simethicone (Maalox Plus 30 Ml) 30 ml PO Q4H PRN PRN Reason: heartburn/indigestion Albuterol Sulfate (Albuterol 0.083% Inhal Ro (2.5 Mg/3 Ml) Ud) 2.5 mg INH RQ4 PRN PRN Reason: Shortness of Breath Last Admin: 12/19/17 10:11 Dose: 2.5 mg Albuterol/Ipratropium (Duoneb 3 Mg/0.5 Mg (3 Ml) Ud) 3 ml INH RQID [facility] Last Admin: 12/22/17 17:11 Dose: 3 ml Aspirin (Ecotrin) 81 mg PO DAILY [facility] Last Admin: 12/22/17 09:10 Dose: 81 mg Calcium Carbonate (Oscal) 500 mg PO BID [facility] Last Admin: 12/22/17 16:23 Dose: 500 mg Dimethicone (Proshield Plus Skin Protectant) 1 applic TOP Q8 [facility] Last Admin: 12/22/17 16:19 Dose: 1 applic Enoxaparin Sodium (Lovenox) 40 mg SC DAILY [facility] PRN Reason: Protocol Last Admin: 12/22/17 09:09 Dose: 40 mg Furosemide (Lasix) 40 mg PO DAILY [facility] Last Admin: 12/22/17 09:08 Dose: 40 mg Guaifenesin (Mucinex La) 1,200 mg PO Q12 [facility] Last Admin: 12/22/17 09:10 Dose: 1,200 mg Meropenem 500 mg/ Sodium (Chloride) 100 mls @ 100 mls/hr IVPB Q8 [facility] PRN Reason: Protocol Last Admin: 12/22/17 16:20 Dose: 100 mls/hr Insulin Detemir (Levemir) 12 units SC HS [facility] Last Admin: 12/21/17 21:43 Dose: 12 u Insulin Human Regular (Humulin R) 0 units SC ACCU-CHECK [facility] PRN Reason: Protocol Last Admin: 12/22/17 16:22 Dose: 6 units Lidocaine (Lidoderm) 1 ea TD DAILY [facility] Last Admin: 12/22/17 09:09 Dose: 1 ea Magnesium Hydroxide (Milk Of Magnesia) 30 ml PO DAILY [facility] PRN Reason: Constipation Methylprednisolone (Solu-Medrol) 20 mg IVP DAILY [facility] Last Admin: 12/22/17 09:11 Dose: 20 mg Montelukast Sodium (Singulair) 10 mg PO HS [facility] Last Admin: 12/21/17 21:46 Dose: 10 mg Multivitamins/Minerals (Therapeutic-M Tab) 1 tab PO DAILY [facility] Last Admin: 12/22/17 09:11 Dose: 1 tab Pantoprazole Sodium (Protonix Ec Tab) 40 mg PO DAILY [facility] Last Admin: 12/22/17 09:09 Dose: 40 mg Silver Sulfadiazine (Silvadene 1% 20 Gm) 1 ea TOP QSHIFT [facility] Tramadol HCl (Ultram) 50 mg PO Q8H PRN PRN Reason: Pain, moderate (4-7) Last Admin: 12/15/17 10:53 Dose: 50 mg Valsartan (Diovan) 80 mg PO DAILY [facility] Last Admin: 12/22/17 09:09 Dose: 80 mg Verapamil HCl (Calan Sr Tab) 240 mg PO DAILY [facility] - Labs Labs: 12/22/17 04:25 12/22/17 04:25 PT 10.3 Seconds (9.8-13.1) 12/14/17 15:08 INR 0.9 (0.9-1.2) 12/14/17 15:08 APTT 27.7 Seconds (25.6-37.1) 12/14/17 15:08 - Constitutional Appears: Chronically Ill, Other (weak and sleepy ) - Head Exam Head Exam: ATRAUMATIC - Eye Exam Eye Exam: PERRL Pupil Exam: NORMAL ACCOMODATION - ENT Exam ENT Exam: Mucous Membranes Moist, Normal Exam - Neck Exam Neck Exam: Normal Inspection - Respiratory Exam Respiratory Exam: Decreased Breath Sounds (left hemithorax ), Prolonged Expiratory Phase, Rhonchi (scattered rhonchi). absent: Wheezes - Cardiovascular Exam Cardiovascular Exam: REGULAR RHYTHM, RRR, +S1, +S2. absent: JVD - GI/Abdominal Exam GI & Abdominal Exam: Soft, Normal Bowel Sounds. absent: Distended, Guarding, Tenderness, Rebound - Rectal Exam Rectal Exam: Deferred - Extremities Exam Extremities Exam: Full ROM, Normal Capillary Refill, Normal Inspection - Neurological Exam Additional comments: tired and sleepy today , more lethargic than usual - Psychiatric Exam Psychiatric exam: Normal Affect - Skin Skin Exam: Dry, Pallor, Warm Additional comments: Sacral and upper buttock Stage I, 2 right medial upper buttock Stage III, 2 stage II right lower back Assessment and Plan - Assessment and Plan (Free Text) Assessment: 82 y/o Female, well known to our service from previous multiple admissions, Hx of CAD, CHF, COPD , sent from [facility] of fever , cough . Found to be hypotensive on admission. CT of chest showed :Progressive consolidative changes/ atelectasis primarily affecting the left lower lobe. Patient was admitted with diagnosis of sepsis and started on IV antibiotics. Pulmonary and ID were consulted Her urine cx reported positive for E. Coli and blood cx positive for Corynebacter species Patient developed acute on chronic respiratory failure with hypoxemia and hypercapnia due to COPD and CHF exacerbation . She was placed on High Flow O2 via NC with very slow improvement CXR repeated 12/14 showed opacification of left hemithorax due to mucus plug She underwent bronchoscopy 12/16 that showed mucus plugs 2/10 noted to be dyspneic , with poor air entry to left hemithorax - High Flow increased to 50% / appears to be very tired, weak, sleepy on FIO2 28 % 30 LPM high flow 1. Mucus Plugging with total opacification of left hemithorax s/p Bronchoscopy - mucus suctioned out Still with SOB and poor air entry to left hemithorax , unable to expectorate With weak cough Repeat CXR showed persistent Left lower lung consolidation and opacification Continue traditional Chest Physiotherapy q 4 Continue Duonebs and acetylcysteine INH , mucinex On High Flow O2 via NC 30L/28 % pulmonary following Pt may need to be d/c on High Flow Oxygen SW working with family to refer patient to LTACH 2. Sepsis secondary to Nosocomial left upper/lower lobe pneumonia, bacteremia and UTI Pt was hypotensive on admission, with leukocytosis, tachycardia urine cx positive for E. Coli Blood cx positive for Corynebacter species CXR showed LLL infiltrate ID Dr Mackay on Meropenem completed IV Vanco tx 3. Acute on Chronic Respiratory Failure Hypoxic, herpercapneic , on Home Oxygen sec to COPD and CHF plus PNA and Mucus plugging on high flow 30 LPM FIO2 28 % Continue Solumedrol 20 Mg IV daily Continue duonebs, IV antibiotics , lasix , diamox 4.Acute on Chronic CHF, systolic and diastolic dysfunction, with minimally elevated troponin ECHO done last year showed EF 35%. Repeat Echo on previous admission showed normal EF on ARB and verapamil no BB due to COPD cont Lasix 5. COPD exacerbation Continue Solumedrol 20 mg Iv daily Pulmonary on consult cont Albuterol neb tx with Mucomyst 6. UTI Urine c/s : ESBL E coli previous cultures showed ESBL E coli on Meropenem as per ID 7. Troponin Elevation likely due to demand ischemia due to Sepsis Troponin now normal had elevated Trop on previous admission cont ASA LDL normal on previous admission no BB sec to COPD 8.Anemia of chronic disease Stable 9. 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 DM type II with hyperglycemia labile cont Levemir 12 units SQ Accucheck with coverage 11.Anxiety and depression on Temazepam and trazodone 12. Chronic pain on lidoderm patch to lower back, tramadol 13. Hypertension Continue Verapamil , Valsartan and lasix 14. DVT prophylaxis on Lovenox
[2017-12-22] MEDS ORDERED: Potassium Chloride 20 mEq/15 ml LIQ UD PO ONE (19:19)
[2017-12-22] MEDS: Insulin Detemir 100 Units/ml Inj SC SCH (22:11)
[2017-12-23] MEDS: Meropenem 500 MG in Sodium Chloride 0.9% 100 ML IVPB SCH ×2 (00:51→08:54)
[2017-12-23] MEDS: Proshield Plus GEL TOP SCH ×3 (00:52→16:06)
[2017-12-23 05:11] LABS: ABG ALLEN TEST YES; ARTERIAL BLOOD GAS HCO3 31.6 mmol/L (21-28); ARTERIAL BLOOD GAS HEMOGLOBIN 11.2 g/dL (11.7-17.4); ARTERIAL BLOOD GAS O2 CAPACITY 15.2 mL/dL (16-24); ARTERIAL BLOOD GAS O2 CONTENT 14.6 ML/dL (15-23); ARTERIAL BLOOD GAS O2 SAT 95.8 % (95-98); ARTERIAL BLOOD GAS PCO2 55 mm/Hg (35-45); ARTERIAL BLOOD GAS PH 7.41 (7.35-7.45); ARTERIAL BLOOD GAS PO2 65 mm/Hg (80-100); ARTERIAL BLOOD GAS TCO2 36.6 mmol/L (22-28)
[2017-12-23 05:30] LABS: HEMOGLOBIN 10.5 g/dL (12.0-16.0); MEAN CELL VOLUME 92.5 fl (81.0-99.0); MEAN CORPUSCULAR HEMOGLOBIN 30.5 pg (27.0-31.0); MEAN CORPUSCULAR HGB CONC 32.9 g/dL (33.0-37.0); RBC 3.43 Mil/uL (3.80-5.20); RED CELL DISTRIBUTION WIDTH 16.1 % (11.5-14.5); WHITE BLOOD COUNT 11.7 K/uL (4.8-10.8)
[2017-12-23 05:48] LABS: BLOOD UREA NITROGEN 34 mg/dl (7-17); CALCIUM 10.3 mg/dL (8.4-10.2); GFR AFRICAN-AMERICAN > 60; GFR NON-AFRICAN AMERICAN 53
[2017-12-23] MEDS: Insulin Regular 100 units/ml SC SCH ×3 (06:04→16:04)
[2017-12-23] MEDS: Albuterol-Ipratrop 3 mg / 0.5 (3 ml) UD INH SCH ×4 (08:28→19:50)
[2017-12-23] MEDS: Acetylcysteine 20% Inhal Soln (4ml) INH SCH ×2 (08:28→19:50)
[2017-12-23] MEDS: Enoxaparin 40 mg Syringe SC SCH (08:50)
[2017-12-23] MEDS: Verapamil 240 mg ER Tab PO SCH (08:50)
[2017-12-23] MEDS: Multivitamin With Minerals Tab PO SCH (08:50)
[2017-12-23] MEDS: guaiFENesin 600 mg ER Tab PO SCH ×2 (08:51→21:12)
[2017-12-23] MEDS: Lidocaine 5% Patch TD SCH (08:53)
[2017-12-23] MEDS: MethylPREDNISolone 40 mg Vial IVP SCH (08:55)
[2017-12-23] MEDS: Pantoprazole 40 mg EC Tab PO SCH (08:55)
--- NOTE | 2017-12-23 09:44 | CP.PCM.PN ---
Subjective - Date & Time of Evaluation Date of Evaluation: 12/23/17 Time of Evaluation: 09:38 - Subjective Subjective: Today's chest x-ray is essentially unchanged from the last. Left lower lobe consolidation/atelectasis still present. The right lung remains relatively clear. Cough assist device at the bedside, cannot determine usage. One entry by RT stating device being used. Vital signs are stable and she remains afebrile. Sputum culture growing S maltophilia; antibiotic change likely. Physical exam; awake, but appears fatigued. Able to follow simple commands. Weak, moist cough, non-productive. Breath sounds are absent in the left base. No audible wheezes. Scattered sonorous rhonchi bilaterally. Anticipate antibiotic change based on culture result. Will ask RT to do cough assist with patient. Repeat flexible bronchoscopy may become the only means of clearing the airway. Objective - Vital Signs/Intake and Output Vital Signs (last 24 hours): Temp Pulse Resp BP Pulse Ox 96.9 F L 86 20 158/68 H 95 12/23/17 08:00 12/23/17 08:50 12/23/17 09:34 12/23/17 08:52 12/23/17 08:00 Intake and Output: 12/22/17 12/23/17 23:59 11:59 Intake Total 990 Output Total 2100 Balance -1110 - Medications Medications: Current Medications Acetaminophen (Tylenol 325mg Tab) 650 mg PO Q4H PRN PRN Reason: Pain, Mild (1-3) Last Admin: 12/14/17 18:07 Dose: 650 mg Acetaminophen (Tylenol 325mg Tab) 650 mg PO Q4H PRN PRN Reason: Temp >100 Acetazolamide (Diamox 250 Mg Tab) 500 mg PO BID [facility] Last Admin: 12/22/17 16:21 Dose: 500 mg Acetylcysteine (Acetylcysteine 20%) 2 ml INH RBID [facility] Last Admin: 12/23/17 08:28 Dose: 2 ml Al Hydrox/Mg Hydrox/Simethicone (Maalox Plus 30 Ml) 30 ml PO Q4H PRN PRN Reason: heartburn/indigestion Albuterol Sulfate (Albuterol 0.083% Inhal Ro (2.5 Mg/3 Ml) Ud) 2.5 mg INH RQ4 PRN PRN Reason: Shortness of Breath Last Admin: 12/19/17 10:11 Dose: 2.5 mg Albuterol/Ipratropium (Duoneb 3 Mg/0.5 Mg (3 Ml) Ud) 3 ml INH RQID [facility] Last Admin: 12/23/17 08:28 Dose: 3 ml Aspirin (Ecotrin) 81 mg PO DAILY [facility] Last Admin: 12/23/17 08:53 Dose: 81 mg Calcium Carbonate (Oscal) 500 mg PO BID [facility] Last Admin: 12/23/17 08:51 Dose: 500 mg Dimethicone (Proshield Plus Skin Protectant) 1 applic TOP Q8 [facility] Last Admin: 12/23/17 08:55 Dose: 1 applic Enoxaparin Sodium (Lovenox) 40 mg SC DAILY [facility] PRN Reason: Protocol Last Admin: 12/23/17 08:50 Dose: 40 mg Furosemide (Lasix) 40 mg PO DAILY [facility] Last Admin: 12/23/17 08:52 Dose: 40 mg Guaifenesin (Mucinex La) 1,200 mg PO Q12 [facility] Last Admin: 12/23/17 08:51 Dose: 1,200 mg Meropenem 500 mg/ Sodium (Chloride) 100 mls @ 100 mls/hr IVPB Q8 [facility] PRN Reason: Protocol Last Admin: 12/23/17 08:54 Dose: 100 mls/hr Insulin Detemir (Levemir) 12 units SC [facility] Last Admin: 12/22/17 22:11 Dose: 12 u Insulin Human Regular (Humulin R) 0 units SC ACCU-CHECK [facility] PRN Reason: Protocol Last Admin: 12/23/17 06:04 Dose: Not Given Lidocaine (Lidoderm) 1 ea TD DAILY [facility] Last Admin: 12/23/17 08:53 Dose: 1 ea Magnesium Hydroxide (Milk Of Magnesia) 30 ml PO DAILY PRN PRN Reason: Constipation Methylprednisolone (Solu-Medrol) 20 mg IVP DAILY [facility] Last Admin: 12/23/17 08:55 Dose: 20 mg Montelukast Sodium (Singulair) 10 mg PO HS [facility] Last Admin: 12/22/17 22:10 Dose: 10 mg Multivitamins/Minerals (Therapeutic-M Tab) 1 tab PO DAILY [facility] Last Admin: 12/23/17 08:50 Dose: 1 tab Pantoprazole Sodium (Protonix Ec Tab) 40 mg PO DAILY [facility] Last Admin: 12/23/17 08:55 Dose: 40 mg Silver Sulfadiazine (Silvadene 1% 20 Gm) 1 ea TOP QSHIFT [facility] Tramadol HCl (Ultram) 50 mg PO Q8H PRN PRN Reason: Pain, moderate (4-7) Last Admin: 12/15/17 10:53 Dose: 50 mg Valsartan (Diovan) 80 mg PO DAILY [facility] Last Admin: 12/23/17 08:52 Dose: 80 mg Verapamil HCl (Calan Sr Tab) 240 mg PO DAILY [facility] Last Admin: 12/23/17 08:50 Dose: 240 mg - Labs Labs: 12/23/17 04:40 12/23/17 04:40 PT 10.3 Seconds (9.8-13.1) 12/14/17 15:08 INR 0.9 (0.9-1.2) 12/14/17 15:08 APTT 27.7 Seconds (25.6-37.1) 12/14/17 15:08 Assessment and Plan (1) Hypercapnic respiratory failure, chronic Status: Chronic (2) Atelectasis, left Status: Acute (3) COPD (chronic obstructive pulmonary disease) Status: Chronic
--- NOTE | 2017-12-23 10:12 | CP.PCM.PN ---
Subjective - Date & Time of Evaluation Date of Evaluation: 12/23/17 Time of Evaluation: 10:09 - Subjective Subjective: Patient sitting up in bed Complaining of mild coughing intermittently On some shortness of breath intermittently No vomiting Objective - Vital Signs/Intake and Output Vital Signs (last 24 hours): Temp Pulse Resp BP Pulse Ox 96.9 F L 86 20 158/68 H 95 12/23/17 08:00 12/23/17 08:50 12/23/17 09:34 12/23/17 08:52 12/23/17 08:00 Intake and Output: 12/23/17 12/23/17 06:59 18:59 Intake Total 990 Output Total 2100 Balance -1110 - Medications Medications: Current Medications Acetaminophen (Tylenol 325mg Tab) 650 mg PO Q4H PRN PRN Reason: Pain, Mild (1-3) Last Admin: 12/14/17 18:07 Dose: 650 mg Acetaminophen (Tylenol 325mg Tab) 650 mg PO Q4H PRN PRN Reason: Temp >100 Acetazolamide (Diamox 250 Mg Tab) 500 mg PO BID [facility] Last Admin: 12/22/17 16:21 Dose: 500 mg Acetylcysteine (Acetylcysteine 20%) 2 ml INH RBID [facility] Last Admin: 12/23/17 08:28 Dose: 2 ml Al Hydrox/Mg Hydrox/Simethicone (Maalox Plus 30 Ml) 30 ml PO Q4H PRN PRN Reason: heartburn/indigestion Albuterol Sulfate (Albuterol 0.083% Inhal Ro (2.5 Mg/3 Ml) Ud) 2.5 mg INH RQ4 PRN PRN Reason: Shortness of Breath Last Admin: 12/19/17 10:11 Dose: 2.5 mg Albuterol/Ipratropium (Duoneb 3 Mg/0.5 Mg (3 Ml) Ud) 3 ml INH RQID [facility] Last Admin: 12/23/17 08:28 Dose: 3 ml Aspirin (Ecotrin) 81 mg PO DAILY [facility] Last Admin: 12/23/17 08:53 Dose: 81 mg Calcium Carbonate (Oscal) 500 mg PO BID [facility] Last Admin: 12/23/17 08:51 Dose: 500 mg Dimethicone (Proshield Plus Skin Protectant) 1 applic TOP Q8 [facility] Last Admin: 12/23/17 08:55 Dose: 1 applic Enoxaparin Sodium (Lovenox) 40 mg SC DAILY [facility] PRN Reason: Protocol Last Admin: 12/23/17 08:50 Dose: 40 mg Furosemide (Lasix) 40 mg PO DAILY [facility] Last Admin: 12/23/17 08:52 Dose: 40 mg Guaifenesin (Mucinex La) 1,200 mg PO Q12 [facility] Last Admin: 12/23/17 08:51 Dose: 1,200 mg Meropenem 500 mg/ Sodium (Chloride) 100 mls @ 100 mls/hr IVPB Q8 [facility] PRN Reason: Protocol Last Admin: 12/23/17 08:54 Dose: 100 mls/hr Insulin Detemir (Levemir) 12 units SC [facility] Last Admin: 12/22/17 22:11 Dose: 12 u Insulin Human Regular (Humulin R) 0 units SC ACCU-CHECK [facility] PRN Reason: Protocol Last Admin: 12/23/17 06:04 Dose: Not Given Lidocaine (Lidoderm) 1 ea TD DAILY [facility] Last Admin: 12/23/17 08:53 Dose: 1 ea Magnesium Hydroxide (Milk Of Magnesia) 30 ml PO DAILY PRN PRN Reason: Constipation Methylprednisolone (Solu-Medrol) 20 mg IVP DAILY [facility] Last Admin: 12/23/17 08:55 Dose: 20 mg Montelukast Sodium (Singulair) 10 mg PO HS [facility] Last Admin: 12/22/17 22:10 Dose: 10 mg Multivitamins/Minerals (Therapeutic-M Tab) 1 tab PO DAILY [facility] Last Admin: 12/23/17 08:50 Dose: 1 tab Pantoprazole Sodium (Protonix Ec Tab) 40 mg PO DAILY [facility] Last Admin: 12/23/17 08:55 Dose: 40 mg Silver Sulfadiazine (Silvadene 1% 20 Gm) 1 ea TOP QSHIFT [facility] Tramadol HCl (Ultram) 50 mg PO Q8H PRN PRN Reason: Pain, moderate (4-7) Last Admin: 12/15/17 10:53 Dose: 50 mg Valsartan (Diovan) 80 mg PO DAILY [facility] Last Admin: 12/23/17 08:52 Dose: 80 mg Verapamil HCl (Calan Sr Tab) 240 mg PO DAILY [facility] Last Admin: 12/23/17 08:50 Dose: 240 mg - Labs Labs: 12/23/17 04:40 12/23/17 04:40 PT 10.3 Seconds (9.8-13.1) 12/14/17 15:08 INR 0.9 (0.9-1.2) 12/14/17 15:08 APTT 27.7 Seconds (25.6-37.1) 12/14/17 15:08 - Constitutional Appears: No Acute Distress - ENT Exam ENT Exam: Mucous Membranes Moist - Neck Exam Neck Exam: absent: Lymphadenopathy - Respiratory Exam Respiratory Exam: Rhonchi. absent: Chest Wall Tenderness - Cardiovascular Exam Cardiovascular Exam: absent: Gallop, JVD, Rubs - GI/Abdominal Exam GI & Abdominal Exam: Soft, Normal Bowel Sounds - Extremities Exam Extremities Exam: absent: Calf Tenderness - Back Exam Back Exam: absent: CVA tenderness (L), CVA tenderness (R) - Neurological Exam Neurological Exam: Alert - Psychiatric Exam Psychiatric exam: absent: Normal Affect - Skin Skin Exam: absent: Cyanosis Assessment and Plan (1) Metabolic alkalosis Assessment & Plan: CO2 came down to 34 from 35 Metabolic alkalosis persistent but improving Diamox has been increased yesterday Hypokalemia patient given 1 dose of potassium chloride 20 mEq I believe she needs more this afternoon Kidney functions remain acceptable Status: Acute
--- NOTE | 2017-12-23 13:28 | CP.PCM.PN ---
Subjective - Date & Time of Evaluation Date of Evaluation: 12/23/17 Time of Evaluation: 08:00 - Subjective Subjective: Left lower lobe consolidation/atelectasis still present. Vital signs are stable and she remains afebrile. Sputum culture growing S maltophilia switch to Cipro poor prognosis Objective - Vital Signs/Intake and Output Vital Signs (last 24 hours): Temp Pulse Resp BP Pulse Ox 98.4 F 98 H 20 122/69 98 12/23/17 13:00 12/23/17 13:00 12/23/17 13:00 12/23/17 13:00 12/23/17 13:00 Intake and Output: 12/23/17 12/23/17 06:59 18:59 Intake Total 990 Output Total 2100 Balance -1110 - Medications Medications: Current Medications Acetaminophen (Tylenol 325mg Tab) 650 mg PO Q4H PRN PRN Reason: Pain, Mild (1-3) Last Admin: 12/14/17 18:07 Dose: 650 mg Acetaminophen (Tylenol 325mg Tab) 650 mg PO Q4H PRN PRN Reason: Temp >100 Acetazolamide (Diamox 250 Mg Tab) 500 mg PO BID [facility] Last Admin: 12/23/17 09:00 Dose: Not Given Acetylcysteine (Acetylcysteine 20%) 2 ml INH RBID [facility] Last Admin: 12/23/17 08:28 Dose: 2 ml Al Hydrox/Mg Hydrox/Simethicone (Maalox Plus 30 Ml) 30 ml PO Q4H PRN PRN Reason: heartburn/indigestion Albuterol Sulfate (Albuterol 0.083% Inhal Ro (2.5 Mg/3 Ml) Ud) 2.5 mg INH RQ4 PRN PRN Reason: Shortness of Breath Last Admin: 12/19/17 10:11 Dose: 2.5 mg Albuterol/Ipratropium (Duoneb 3 Mg/0.5 Mg (3 Ml) Ud) 3 ml INH RQID [facility] Last Admin: 12/23/17 11:53 Dose: 3 ml Aspirin (Ecotrin) 81 mg PO DAILY [facility] Last Admin: 12/23/17 08:53 Dose: 81 mg Calcium Carbonate (Oscal) 500 mg PO BID [facility] Last Admin: 12/23/17 08:51 Dose: 500 mg Dimethicone (Proshield Plus Skin Protectant) 1 applic TOP Q8 [facility] Last Admin: 12/23/17 08:55 Dose: 1 applic Enoxaparin Sodium (Lovenox) 40 mg SC DAILY [facility] PRN Reason: Protocol Last Admin: 12/23/17 08:50 Dose: 40 mg Furosemide (Lasix) 40 mg PO DAILY [facility] Last Admin: 12/23/17 08:52 Dose: 40 mg Guaifenesin (Mucinex La) 1,200 mg PO Q12 [facility] Last Admin: 12/23/17 08:51 Dose: 1,200 mg Meropenem 500 mg/ Sodium (Chloride) 100 mls @ 100 mls/hr IVPB Q8 [facility] PRN Reason: Protocol Last Admin: 12/23/17 08:54 Dose: 100 mls/hr Insulin Detemir (Levemir) 12 units SC HS [facility] Last Admin: 12/22/17 22:11 Dose: 12 u Insulin Human Regular (Humulin R) 0 units SC ACCU-CHECK [facility] PRN Reason: Protocol Last Admin: 12/23/17 13:18 Dose: Not Given Lidocaine (Lidoderm) 1 ea TD DAILY [facility] Last Admin: 12/23/17 08:53 Dose: 1 ea Magnesium Hydroxide (Milk Of Magnesia) 30 ml PO DAILY [facility] PRN Reason: Constipation Methylprednisolone (Solu-Medrol) 20 mg IVP DAILY [facility] Last Admin: 12/23/17 08:55 Dose: 20 mg Montelukast Sodium (Singulair) 10 mg PO HS [facility] Last Admin: 12/22/17 22:10 Dose: 10 mg Multivitamins/Minerals (Therapeutic-M Tab) 1 tab PO DAILY [facility] Last Admin: 12/23/17 08:50 Dose: 1 tab Pantoprazole Sodium (Protonix Ec Tab) 40 mg PO DAILY [facility] Last Admin: 12/23/17 08:55 Dose: 40 mg Silver Sulfadiazine (Silvadene 1% 20 Gm) 1 ea TOP QSHIFT [facility] Tramadol HCl (Ultram) 50 mg PO Q8H PRN PRN Reason: Pain, moderate (4-7) Last Admin: 12/15/17 10:53 Dose: 50 mg Valsartan (Diovan) 80 mg PO DAILY [facility] Last Admin: 12/23/17 08:52 Dose: 80 mg Verapamil HCl (Calan Sr Tab) 240 mg PO DAILY [facility] Last Admin: 12/23/17 08:50 Dose: 240 mg - Labs Labs: 12/23/17 04:40 12/23/17 04:40 PT 10.3 Seconds (9.8-13.1) 12/14/17 15:08 INR 0.9 (0.9-1.2) 12/14/17 15:08 APTT 27.7 Seconds (25.6-37.1) 12/14/17 15:08 - Constitutional Appears: Non-toxic, Cachectic, Chronically Ill - Head Exam Head Exam: NORMOCEPHALIC - Eye Exam Eye Exam: PERRL - ENT Exam ENT Exam: Mucous Membranes Dry - Neck Exam Neck Exam: absent: Lymphadenopathy - Respiratory Exam Respiratory Exam: Decreased Breath Sounds, Prolonged Expiratory Phase, Rhonchi - Cardiovascular Exam Cardiovascular Exam: REGULAR RHYTHM, +S1, +S2 - GI/Abdominal Exam GI & Abdominal Exam: Distended, Soft. absent: Tenderness - Rectal Exam Rectal Exam: Deferred - Exam Exam: NORMAL INSPECTION - Extremities Exam Extremities Exam: absent: Pedal Edema - Back Exam Back Exam: absent: CVA tenderness (L), CVA tenderness (R) - Neurological Exam Neurological Exam: Alert, Altered, Awake Assessment and Plan (1) Pneumonia Status: Acute (2) Dehydration Status: Acute (3) Diabetes Status: Acute (4) ESBL (extended spectrum beta-lactamase) producing bacteria infection Status: Acute - Assessment and Plan (Free Text) Assessment: add cipro
[2017-12-23] MEDS ORDERED: Potassium Chloride 20 mEq/15 ml LIQ UD PO ONE (13:45)
--- NOTE | 2017-12-23 15:11 | RAD ---
PROCEDURE: CHEST RADIOGRAPH, 1 VIEW HISTORY: Pneumonia. COMPARISON: 12/21/2017. FINDINGS: LUNGS: Left lower lobe infiltrate unchanged. PLEURA: No significant interval change compared to the prior examination(s). CARDIOVASCULAR: Stable cardiomegaly. OSSEOUS STRUCTURES: No significant abnormalities. VISUALIZED UPPER ABDOMEN: Normal. OTHER FINDINGS: None. IMPRESSION: No significant interval change compared to the prior examination(s).
--- NOTE | 2017-12-23 19:45 | CP.PCM.PN ---
Subjective - Date & Time of Evaluation Date of Evaluation: 12/23/17 Time of Evaluation: 10:00 - Subjective Subjective: Patient was seen and examined bedside. Elderly female sitting in bed in upright position, appears very weak,sleepy , tired with weak cough , unable to expectorate On high flow O2 via NC 30 LPM FIO2 28 % Feeling more SOB ABG showed PCO2 55 PO2 65 Ph 7.3 CO2 31 increased FIO2 to 50 % CXR showed LLL mucus plug and lung opacification Objective - Vital Signs/Intake and Output Vital Signs (last 24 hours): Temp Pulse Resp BP Pulse Ox 98.2 F 100 H 20 128/82 98 12/23/17 19:27 12/23/17 19:27 12/23/17 19:27 12/23/17 19:27 12/23/17 19:27 Intake and Output: 12/23/17 12/24/17 18:59 06:59 Intake Total 640 Output Total 600 Balance 40 - Medications Medications: Current Medications Acetaminophen (Tylenol 325mg Tab) 650 mg PO Q4H PRN PRN Reason: Pain, Mild (1-3) Last Admin: 12/14/17 18:07 Dose: 650 mg Acetaminophen (Tylenol 325mg Tab) 650 mg PO Q4H PRN PRN Reason: Temp >100 Acetazolamide (Diamox 250 Mg Tab) 500 mg PO BID [facility] Last Admin: 12/23/17 16:03 Dose: 500 mg Acetylcysteine (Acetylcysteine 20%) 2 ml INH RBID [facility] Last Admin: 12/23/17 08:28 Dose: 2 ml Al Hydrox/Mg Hydrox/Simethicone (Maalox Plus 30 Ml) 30 ml PO Q4H PRN PRN Reason: heartburn/indigestion Albuterol Sulfate (Albuterol 0.083% Inhal Ro (2.5 Mg/3 Ml) Ud) 2.5 mg INH RQ4 PRN PRN Reason: Shortness of Breath Last Admin: 12/19/17 10:11 Dose: 2.5 mg Albuterol/Ipratropium (Duoneb 3 Mg/0.5 Mg (3 Ml) Ud) 3 ml INH RQID [facility] Last Admin: 12/23/17 16:05 Dose: 3 ml Aspirin (Ecotrin) 81 mg PO DAILY [facility] Last Admin: 02/14/18 08:53 Dose: 81 mg Calcium Carbonate (Oscal) 500 mg PO BID [facility] Last Admin: 12/23/17 16:05 Dose: 500 mg Dimethicone (Proshield Plus Skin Protectant) 1 applic TOP Q8 [facility] Last Admin: 12/23/17 16:06 Dose: 1 applic Enoxaparin Sodium (Lovenox) 40 mg SC DAILY [facility] PRN Reason: Protocol Last Admin: 12/23/17 08:50 Dose: 40 mg Furosemide (Lasix) 40 mg PO DAILY [facility] Last Admin: 12/23/17 08:52 Dose: 40 mg Guaifenesin (Mucinex La) 1,200 mg PO Q12 [facility] Last Admin: 12/23/17 08:51 Dose: 1,200 mg Ciprofloxacin (Cipro 400mg/200ml Dsw) 400 mg in 200 mls @ 200 mls/hr IVPB Q12 [facility] PRN Reason: Protocol Insulin Detemir (Levemir) 12 units SC [facility] Last Admin: 12/22/17 22:11 Dose: 12 u Insulin Human Regular (Humulin R) 0 units SC ACCU-CHECK [facility] PRN Reason: Protocol Last Admin: 12/23/17 16:04 Dose: 6 units Lidocaine (Lidoderm) 1 ea TD DAILY [facility] Last Admin: 12/23/17 08:53 Dose: 1 ea Magnesium Hydroxide (Milk Of Magnesia) 30 ml PO DAILY [facility] PRN Reason: Constipation Methylprednisolone (Solu-Medrol) 20 mg IVP DAILY [facility] Last Admin: 12/23/17 08:55 Dose: 20 mg Montelukast Sodium (Singulair) 10 mg PO HS [facility] Last Admin: 12/22/17 22:10 Dose: 10 mg Multivitamins/Minerals (Therapeutic-M Tab) 1 tab PO DAILY [facility] Last Admin: 12/23/17 08:50 Dose: 1 tab Pantoprazole Sodium (Protonix Ec Tab) 40 mg PO DAILY [facility] Last Admin: 12/23/17 08:55 Dose: 40 mg Silver Sulfadiazine (Silvadene 1% 20 Gm) 1 ea TOP QSHIFT [facility] Tramadol HCl (Ultram) 50 mg PO Q8H PRN PRN Reason: Pain, moderate (4-7) Last Admin: 12/15/17 10:53 Dose: 50 mg Valsartan (Diovan) 80 mg PO DAILY [facility] Last Admin: 12/23/17 08:52 Dose: 80 mg Verapamil HCl (Calan Sr Tab) 240 mg PO DAILY [facility] Last Admin: 12/23/17 08:50 Dose: 240 mg - Labs Labs: 12/23/17 04:40 12/23/17 04:40 PT 10.3 Seconds (9.8-13.1) 12/14/17 15:08 INR 0.9 (0.9-1.2) 12/14/17 15:08 APTT 27.7 Seconds (25.6-37.1) 12/14/17 15:08 - Constitutional Appears: Chronically Ill, Other (in respiratory distress with accessory muscle use , very weak ) - Head Exam Head Exam: ATRAUMATIC, NORMOCEPHALIC - Eye Exam Eye Exam: PERRL Pupil Exam: NORMAL ACCOMODATION - ENT Exam ENT Exam: Normal Exam - Neck Exam Neck Exam: Normal Inspection - Respiratory Exam Respiratory Exam: Accessory Muscle Use, Decreased Breath Sounds (decreased air entry to LEft hemitjorax), Prolonged Expiratory Phase, Respiratory Distress - Cardiovascular Exam Cardiovascular Exam: REGULAR RHYTHM, RRR, +S1, +S2. absent: JVD - GI/Abdominal Exam GI & Abdominal Exam: Soft, Normal Bowel Sounds. absent: Distended, Guarding, Tenderness, Rebound - Rectal Exam Rectal Exam: Deferred - Extremities Exam Extremities Exam: Normal Capillary Refill, Normal Inspection. absent: Pedal Edema - Neurological Exam Neurological Exam: Alert, Awake, CN II-XII Intact Additional comments: sleepy - Psychiatric Exam Psychiatric exam: Flat Affect - Skin Skin Exam: Dry, Pallor, Warm Assessment and Plan - Assessment and Plan (Free Text) Assessment: 82 y/o Female, well known to our service from previous multiple admissions, Hx of CAD, CHF, COPD , sent from [facility] of fever , cough . Found to be hypotensive on admission. CT of chest showed :Progressive consolidative changes/ atelectasis primarily affecting the left lower lobe. Patient was admitted with diagnosis of sepsis and started on IV antibiotics. Pulmonary and ID were consulted Her urine cx reported positive for E. Coli and blood cx positive for Corynebacter species Patient developed acute on chronic respiratory failure with hypoxemia and hypercapnia due to COPD and CHF exacerbation . She was placed on High Flow O2 via NC with very slow improvement CXR repeated 12/14 showed opacification of left hemithorax due to mucus plug She underwent bronchoscopy 12/16 that showed mucus plugs At present still with dyspnea at rest while on High flow 30 LMP FIO2 28 % with worsening hypoxemia and hypercarbia ( Todays ABG PCO2 55 PO2 65) Increased FIO2 to 60 % CXR showed opacification on LLL Patient apperas weaker , more tired and sleepy 1. Mucus Plugging s/p Bronchoscopy 12/16 -after total opacification of left hemithorax seen on CXR. Mucus suctioned out Still with SOB and poor air entry to left hemithorax , unable to expectorate, With weak cough Repeat CXR showed persistent Left lower lung consolidation and opacification Continue traditional Chest Physiotherapy q 4 Continue Duonebs and acetylcysteine INH , mucinex Increase High Flow O2 via NC 30L/50 % pulmonary following patient may need repeat bronchoscopy to open airway or discharged on LTACh unit on high flow She is DNR/ DNI Spoke to son and today at length about possible LTACH discharge. They would like to discuss with Dr. Oscar in AM before making any decision 2. Acute on Chronic Respiratory Failure Hypoxic, hyrpercapneic --- currently on high flow O2 unable to wean off sec to COPD and CHF plus PNA and Mucus plugging Incresae FIO2 to 50 % today Continue Solumedrol 20 Mg IV daily Continue duonebs, IV antibiotics , lasix , diamox( increased dose ) pulmonary on consult 3. Sepsis secondary to Nosocomial left upper/lower lobe pneumonia, bacteremia and UTI Pt was hypotensive on admission, with leukocytosis, tachycardia urine cx positive for E. Coli Blood cx positive for Corynebacter species CXR showed LLL infiltrate Sputum cultures growing Streptomonas Maltophilia now ID Dr Mackay completed course of Meropenem vanco Started on Cipro today 4.Acute on Chronic CHF, systolic and diastolic dysfunction, with minimally elevated troponin ECHO done last year showed EF 35%. Repeat Echo on previous admission showed normal EF on ARB and verapamil no BB due to COPD cont Lasix . Replace K 5. Hypokalemia secondary to diuretic use Replace with KCl Po 6. COPD exacerbation Continue Solumedrol 20 mg Iv daily Pulmonary on consult cont Albuterol neb tx with Mucomyst 7. UTI Urine c/s : ESBL E coli previous cultures showed ESBL E coli received full course of Meropenem as per ID 8. Troponin Elevation likely due to demand ischemia due to Sepsis Troponin now normal had elevated Trop on previous admission cont ASA LDL normal on previous admission no BB sec to COPD 9.Anemia of chronic disease Stable 10. Pressure Ulcers ( POA) Sacral and upper buttock Stage I, 2 right medial upper buttock Stage III, 2 stage II right lower back skatesman consulted ulcers do not look infected 11. DM type II with hyperglycemia labile cont Levemir 12 units SQ Accucheck with coverage 12.Anxiety and depression on Temazepam and trazodone 13. Chronic pain on lidoderm patch to lower back, tramadol 14. Hypertension Continue Verapamil , Valsartan and lasix 15. DVT prophylaxis on Lovenox
[2017-12-23] MEDS: Ciprofloxacin 400mg/200ml D5W 400 MG/200 ML BAG IVPB SCH (21:11)
[2017-12-23] MEDS: Insulin Detemir 100 Units/ml Inj SC SCH (21:12)
[2017-12-24] MEDS: Insulin Regular 100 units/ml SC SCH ×5 (01:08→22:34)
[2017-12-24] MEDS: Proshield Plus GEL TOP SCH ×3 (05:21→17:53)
[2017-12-24 06:16] LABS: BLOOD UREA NITROGEN 33 mg/dl (7-17); CALCIUM 9.5 mg/dL (8.4-10.2); GFR AFRICAN-AMERICAN > 60; GFR NON-AFRICAN AMERICAN > 60
[2017-12-24] MEDS: Albuterol-Ipratrop 3 mg / 0.5 (3 ml) UD INH SCH ×4 (08:01→19:54)
[2017-12-24] MEDS: Acetylcysteine 20% Inhal Soln (4ml) INH SCH ×2 (08:01→19:54)
[2017-12-24] MEDS: Verapamil 240 mg ER Tab PO SCH (09:44)
[2017-12-24] MEDS: Pantoprazole 40 mg EC Tab PO SCH (09:44)
[2017-12-24] MEDS: Enoxaparin 40 mg Syringe SC SCH (09:45)
[2017-12-24] MEDS: Lidocaine 5% Patch TD SCH (09:45)
[2017-12-24] MEDS: guaiFENesin 600 mg ER Tab PO SCH ×2 (09:46→20:42)
[2017-12-24] MEDS: Multivitamin With Minerals Tab PO SCH (09:47)
[2017-12-24] MEDS: MethylPREDNISolone 40 mg Vial IVP SCH ×2 (09:47→17:54)
[2017-12-24] MEDS: Ciprofloxacin 400mg/200ml D5W 400 MG/200 ML BAG IVPB SCH ×2 (09:48→20:41)
--- NOTE | 2017-12-24 10:01 | CP.PCM.PN ---
Subjective - Date & Time of Evaluation Date of Evaluation: 12/24/17 Time of Evaluation: 09:58 - Subjective Subjective: Patient complaining of what appeared to be increasing shortness of breath Complaining of weakness She is trying to cough Objective - Vital Signs/Intake and Output Vital Signs (last 24 hours): Temp Pulse Resp BP Pulse Ox 97.7 F 84 24 155/91 H 98 12/24/17 08:00 12/24/17 09:44 12/24/17 08:46 12/24/17 09:45 12/24/17 08:00 Intake and Output: 12/24/17 12/24/17 06:59 18:59 Intake Total 200 Output Total 650 Balance -450 - Medications Medications: Current Medications Acetaminophen (Tylenol 325mg Tab) 650 mg PO Q4H PRN PRN Reason: Pain, Mild (1-3) Last Admin: 12/14/17 18:07 Dose: 650 mg Acetaminophen (Tylenol 325mg Tab) 650 mg PO Q4H PRN PRN Reason: Temp >100 Acetylcysteine (Acetylcysteine 20%) 2 ml INH RBID [facility] Last Admin: 12/24/17 08:01 Dose: 2 ml Al Hydrox/Mg Hydrox/Simethicone (Maalox Plus 30 Ml) 30 ml PO Q4H PRN PRN Reason: heartburn/indigestion Albuterol Sulfate (Albuterol 0.083% Inhal Ro (2.5 Mg/3 Ml) Ud) 2.5 mg INH RQ4 PRN PRN Reason: Shortness of Breath Last Admin: 12/19/17 10:11 Dose: 2.5 mg Albuterol/Ipratropium (Duoneb 3 Mg/0.5 Mg (3 Ml) Ud) 3 ml INH RQID [facility] Last Admin: 12/24/17 08:01 Dose: 3 ml Aspirin (Ecotrin) 81 mg PO DAILY [facility] Last Admin: 12/24/17 09:43 Dose: 81 mg Calcium Carbonate (Oscal) 500 mg PO BID [facility] Last Admin: 12/24/17 09:46 Dose: 500 mg Dimethicone (Proshield Plus Skin Protectant) 1 applic TOP Q8 [facility] Last Admin: 12/24/17 09:51 Dose: 1 applic Enoxaparin Sodium (Lovenox) 40 mg SC DAILY [facility] PRN Reason: Protocol Last Admin: 12/24/17 09:45 Dose: 40 mg Furosemide (Lasix) 40 mg PO DAILY [facility] Last Admin: 12/24/17 09:45 Dose: 40 mg Guaifenesin (Mucinex La) 1,200 mg PO Q12 [facility] Last Admin: 12/24/17 09:46 Dose: 1,200 mg Ciprofloxacin (Cipro 400mg/200ml Dsw) 400 mg in 200 mls @ 200 mls/hr IVPB Q12 [facility] PRN Reason: Protocol Last Admin: 12/24/17 09:48 Dose: 200 mls/hr Insulin Detemir (Levemir) 12 units SC HS [facility] Last Admin: 12/23/17 21:12 Dose: 12 u Insulin Human Regular (Humulin R) 0 units SC ACCU-CHECK [facility] PRN Reason: Protocol Last Admin: 12/24/17 09:35 Dose: 3 units Lidocaine (Lidoderm) 1 ea TD DAILY [facility] Last Admin: 12/24/17 09:45 Dose: Not Given Magnesium Hydroxide (Milk Of Magnesia) 30 ml PO DAILY PRN PRN Reason: Constipation Methylprednisolone (Solu-Medrol) 20 mg IVP DAILY [facility] Last Admin: 12/24/17 09:47 Dose: 20 mg Montelukast Sodium (Singulair) 10 mg PO HS [facility] Last Admin: 12/23/17 21:12 Dose: 10 mg Multivitamins/Minerals (Therapeutic-M Tab) 1 tab PO DAILY [facility] Last Admin: 12/24/17 09:47 Dose: 1 tab Pantoprazole Sodium (Protonix Ec Tab) 40 mg PO DAILY [facility] Last Admin: 12/24/17 09:44 Dose: 40 mg Silver Sulfadiazine (Silvadene 1% 20 Gm) 1 ea TOP QSHIFT [facility] Tramadol HCl (Ultram) 50 mg PO Q8H PRN PRN Reason: Pain, moderate (4-7) Last Admin: 12/15/17 10:53 Dose: 50 mg Valsartan (Diovan) 80 mg PO DAILY [facility] Last Admin: 12/24/17 09:43 Dose: 80 mg Verapamil HCl (Calan Sr Tab) 240 mg PO DAILY [facility] Last Admin: 12/24/17 09:44 Dose: 240 mg - Labs Labs: 12/23/17 04:40 12/24/17 05:35 PT 10.3 Seconds (9.8-13.1) 12/14/17 15:08 INR 0.9 (0.9-1.2) 12/14/17 15:08 APTT 27.7 Seconds (25.6-37.1) 12/14/17 15:08 - Constitutional Appears: No Acute Distress - ENT Exam ENT Exam: Mucous Membranes Moist - Respiratory Exam Respiratory Exam: Rhonchi. absent: Chest Wall Tenderness - Cardiovascular Exam Cardiovascular Exam: absent: Gallop, JVD, RRR - GI/Abdominal Exam GI & Abdominal Exam: Soft, Normal Bowel Sounds - Extremities Exam Extremities Exam: absent: Calf Tenderness - Back Exam Back Exam: absent: CVA tenderness (L), CVA tenderness (R) - Neurological Exam Neurological Exam: Altered - Skin Skin Exam: absent: Cyanosis Assessment and Plan (1) Metabolic alkalosis Assessment & Plan: Metabolic alkalosis corrected CO2 came down to normal therefore DC'd Diamox Chest x-ray showed opacification of the left lung pulmonary follow-up Kidney functions remain okay Status: Acute
--- NOTE | 2017-12-24 11:21 | CP.PCM.PN ---
Subjective - Date & Time of Evaluation Date of Evaluation: 12/24/17 Time of Evaluation: 11:15 - Subjective Subjective: Discussed with family at length today. They are in agreement for discharge to LTACH. Patient continues to have moderate respiratory distress and inability to raise secretions. On HFNC with SpO2 93-94%, tachycardic and tachypneic. Chest x-ray reveals a persistent LLL atelectasis/infiltrate. Flexible bronchoscopy was helpful transiently after mucoid impacted airways were cleared. Trying use of cough assist device and chest PT with traditional clapping and coughing. Aerosol therapies with mucolytic and bronchodilator also continues on a regular basis. Patient has a do not intubate order as per her own wishes, and family is in agreement. Hopefully LTACH may be able to overcome this marsha and clear the airway more effectively. Objective - Vital Signs/Intake and Output Vital Signs (last 24 hours): Temp Pulse Resp BP Pulse Ox 97.7 F 84 24 155/91 H 98 12/24/17 08:00 12/24/17 09:44 12/24/17 08:46 12/24/17 09:45 12/24/17 08:00 Intake and Output: 12/23/17 12/24/17 23:59 11:59 Intake Total 640 200 Output Total 600 650 Balance 40 -450 - Medications Medications: Current Medications Acetaminophen (Tylenol 325mg Tab) 650 mg PO Q4H PRN PRN Reason: Pain, Mild (1-3) Last Admin: 12/14/17 18:07 Dose: 650 mg Acetaminophen (Tylenol 325mg Tab) 650 mg PO Q4H PRN PRN Reason: Temp >100 Acetylcysteine (Acetylcysteine 20%) 2 ml INH RBID [facility] Last Admin: 12/24/17 08:01 Dose: 2 ml Al Hydrox/Mg Hydrox/Simethicone (Maalox Plus 30 Ml) 30 ml PO Q4H PRN PRN Reason: heartburn/indigestion Albuterol Sulfate (Albuterol 0.083% Inhal Ro (2.5 Mg/3 Ml) Ud) 2.5 mg INH RQ4 PRN PRN Reason: Shortness of Breath Last Admin: 12/19/17 10:11 Dose: 2.5 mg Albuterol/Ipratropium (Duoneb 3 Mg/0.5 Mg (3 Ml) Ud) 3 ml INH RQID [facility] Last Admin: 12/24/17 11:06 Dose: 3 ml Aspirin (Ecotrin) 81 mg PO DAILY [facility] Last Admin: 12/24/17 09:43 Dose: 81 mg Calcium Carbonate (Oscal) 500 mg PO BID [facility] Last Admin: 12/24/17 09:46 Dose: 500 mg Dimethicone (Proshield Plus Skin Protectant) 1 applic TOP Q8 [facility] Last Admin: 12/24/17 09:51 Dose: 1 applic Enoxaparin Sodium (Lovenox) 40 mg SC DAILY [facility] PRN Reason: Protocol Last Admin: 12/24/17 09:45 Dose: 40 mg Furosemide (Lasix) 40 mg PO DAILY [facility] Last Admin: 12/24/17 09:45 Dose: 40 mg Guaifenesin (Mucinex La) 1,200 mg PO Q12 [facility] Last Admin: 12/24/17 09:46 Dose: 1,200 mg Ciprofloxacin (Cipro 400mg/200ml Dsw) 400 mg in 200 mls @ 200 mls/hr IVPB Q12 [facility] PRN Reason: Protocol Last Admin: 12/24/17 09:48 Dose: 200 mls/hr Insulin Detemir (Levemir) 12 units SC [facility] Last Admin: 12/23/17 21:12 Dose: 12 u Insulin Human Regular (Humulin R) 0 units SC ACCU-CHECK [facility] PRN Reason: Protocol Last Admin: 12/24/17 09:35 Dose: 3 units Lidocaine (Lidoderm) 1 ea TD DAILY [facility] Last Admin: 12/24/17 09:45 Dose: Not Given Magnesium Hydroxide (Milk Of Magnesia) 30 ml PO DAILY PR[facility] PRN Reason: Constipation Montelukast Sodium (Singulair) 10 mg PO HS [facility] Last Admin: 12/23/17 21:12 Dose: 10 mg Multivitamins/Minerals (Therapeutic-M Tab) 1 tab PO DAILY [facility] Last Admin: 12/24/17 09:47 Dose: 1 tab Pantoprazole Sodium (Protonix Ec Tab) 40 mg PO DAILY [facility] Last Admin: 12/24/17 09:44 Dose: 40 mg Silver Sulfadiazine (Silvadene 1% 20 Gm) 1 ea TOP QSHIFT [facility] Tramadol HCl (Ultram) 50 mg PO Q8H PRN PRN Reason: Pain, moderate (4-7) Last Admin: 12/15/17 10:53 Dose: 50 mg Valsartan (Diovan) 80 mg PO DAILY [facility] Last Admin: 12/24/17 09:43 Dose: 80 mg Verapamil HCl (Calan Sr Tab) 240 mg PO DAILY [facility] Last Admin: 12/24/17 09:44 Dose: 240 mg - Labs Labs: 12/23/17 04:40 12/24/17 05:35 PT 10.3 Seconds (9.8-13.1) 12/14/17 15:08 INR 0.9 (0.9-1.2) 12/14/17 15:08 APTT 27.7 Seconds (25.6-37.1) 12/14/17 15:08 Assessment and Plan (1) Hypercapnic respiratory failure, chronic Status: Chronic (2) Atelectasis, left Status: Acute (3) COPD (chronic obstructive pulmonary disease) Status: Chronic
--- NOTE | 2017-12-24 12:51 | PQF GENQUE ---
SEPSIS LIKELY MULTIFACTORIAL, PRIMARILY DUE TO BACTEREMIA WITH CORNYBACTERIUM SPECIES, ALSO WITH SPUTUM CULTURE SHOWING STENOTROPHOMONAS MALTOPHILIA Dr. Bain, Please document suspected or confirmed causative organism of Sepsis: POA: if known Clinically unable to determine Unknown 12/08: Blood culture final: Cornynbacterium Species 12/16: Bronchial culture: final: Kayley Albicans 12/20: Sputum culture: final: Stenotrophomonas Maltophilia This form is a permanent part of the medical record Clarification of your documentation is requested to better reflect the severity of illness and intensity of treatment of your patient. Indicators present [] Specify: [] [] Specify: [] [] Specify: [] [] Specify: [] Location in the medical record that reflects the above clinical findings: [] Treatment Provided: [] PHYSICIAN'S RESPONSE Based on your medical judgment of the clinical indicators outlined above please clarify the following: [] Practitioner response [] If unable to determine, please check the box, sign and date. Present On Admission (POA) Indicator: [] Present at the time of admission [] Not present at the time of admission [] Clinically Undetermined In responding to this query, please exercise your independent professional judgment. The fact that a question is asked does not imply that any particular answer is desired or expected. Thank you for your clarification on this documentation. If you have any questions please call. * Thank you, Nadia Nicolas RN ext. [phone] MTDD
[2017-12-24] MEDS ORDERED: methylPREDNISolone 30 MG in Sodium Chloride 0.9% 50 ML IV SCH (17:00)
--- NOTE | 2017-12-24 17:23 | CP.PCM.PN ---
Subjective - Date & Time of Evaluation Date of Evaluation: 12/24/17 Time of Evaluation: 10:00 - Subjective Subjective: Patient seen and examined at bedside. Patient appears more awake today, sitting up in bed. Still very weak with occasional cough On high flow O2 decreased now to 40 L per minute, 30% as per Dr. Oscar For discharge to [facility] in the morning; family agrees Objective - Vital Signs/Intake and Output Vital Signs (last 24 hours): Temp Pulse Resp BP Pulse Ox 98.9 F 109 H 17 133/70 98 12/24/17 16:43 12/24/17 16:43 12/24/17 16:43 12/24/17 16:43 12/24/17 16:43 Intake and Output: 12/24/17 12/24/17 06:59 18:59 Intake Total 200 Output Total 650 Balance -450 - Medications Medications: Current Medications Acetaminophen (Tylenol 325mg Tab) 650 mg PO Q4H PRN PRN Reason: Pain, Mild (1-3) Last Admin: 12/14/17 18:07 Dose: 650 mg Acetaminophen (Tylenol 325mg Tab) 650 mg PO Q4H PRN PRN Reason: Temp >100 Acetylcysteine (Acetylcysteine 20%) 2 ml INH RBID [facility] Last Admin: 12/24/17 08:01 Dose: 2 ml Al Hydrox/Mg Hydrox/Simethicone (Maalox Plus 30 Ml) 30 ml PO Q4H PRN PRN Reason: heartburn/indigestion Albuterol Sulfate (Albuterol 0.083% Inhal Ro (2.5 Mg/3 Ml) Ud) 2.5 mg INH RQ4 PRN PRN Reason: Shortness of Breath Last Admin: 12/19/17 10:11 Dose: 2.5 mg Albuterol/Ipratropium (Duoneb 3 Mg/0.5 Mg (3 Ml) Ud) 3 ml INH RQID [facility] Last Admin: 12/24/17 11:06 Dose: 3 ml Aspirin (Ecotrin) 81 mg PO DAILY [facility] Last Admin: 12/24/17 09:43 Dose: 81 mg Calcium Carbonate (Oscal) 500 mg PO BID [facility] Last Admin: 12/24/17 09:46 Dose: 500 mg Dimethicone (Proshield Plus Skin Protectant) 1 applic TOP Q8 [facility] Last Admin: 12/24/17 09:51 Dose: 1 applic Enoxaparin Sodium (Lovenox) 40 mg SC DAILY [facility] PRN Reason: Protocol Last Admin: 12/24/17 09:45 Dose: 40 mg Furosemide (Lasix) 40 mg PO DAILY [facility] Last Admin: 12/24/17 09:45 Dose: 40 mg Guaifenesin (Mucinex La) 1,200 mg PO Q12 [facility] Last Admin: 12/24/17 09:46 Dose: 1,200 mg Ciprofloxacin (Cipro 400mg/200ml Dsw) 400 mg in 200 mls @ 200 mls/hr IVPB Q12 [facility] PRN Reason: Protocol Last Admin: 12/24/17 09:48 Dose: 200 mls/hr Insulin Detemir (Levemir) 12 units SC HS [facility] Last Admin: 12/23/17 21:12 Dose: 12 u Insulin Human Regular (Humulin R) 0 units SC ACCU-CHECK [facility] PRN Reason: Protocol Last Admin: 12/24/17 11:40 Dose: 3 units Lidocaine (Lidoderm) 1 ea TD DAILY [facility] Last Admin: 12/24/17 09:45 Dose: Not Given Magnesium Hydroxide (Milk Of Magnesia) 30 ml PO DAILY [facility] PRN Reason: Constipation Last Admin: 12/24/17 11:17 Dose: 30 ml Methylprednisolone (Solu-Medrol) 30 mg IVP BID [facility] Montelukast Sodium (Singulair) 10 mg PO HS [facility] Last Admin: 12/23/17 21:12 Dose: 10 mg Multivitamins/Minerals (Therapeutic-M Tab) 1 tab PO DAILY [facility] Last Admin: 12/24/17 09:47 Dose: 1 tab Pantoprazole Sodium (Protonix Ec Tab) 40 mg PO DAILY [facility] Last Admin: 12/24/17 09:44 Dose: 40 mg Silver Sulfadiazine (Silvadene 1% 20 Gm) 1 ea TOP QSHIFT [facility] Tramadol HCl (Ultram) 50 mg PO Q8H PRN PRN Reason: Pain, moderate (4-7) Last Admin: 12/15/17 10:53 Dose: 50 mg Valsartan (Diovan) 80 mg PO DAILY [facility] Last Admin: 12/24/17 09:43 Dose: 80 mg Verapamil HCl (Calan Sr Tab) 240 mg PO DAILY [facility] Last Admin: 12/24/17 09:44 Dose: 240 mg - Labs Labs: 12/23/17 04:40 12/24/17 05:35 PT 10.3 Seconds (9.8-13.1) 12/14/17 15:08 INR 0.9 (0.9-1.2) 12/14/17 15:08 APTT 27.7 Seconds (25.6-37.1) 12/14/17 15:08 - Additional Findings Additional findings: Physical exam: Constitutional- cooperative, awake, alert Head- NCAT, PERRL Eye- PERRL, EOMI ENT- normal exam, MMM. Neck- normal inspection, supple, no JVD Respiratory- CTAB, wheezes bilaterally, no rales or rhonchi Cardiovascular- RRR, +S1, +S2 no MRG GI/Abdominal- normal bowel sounds, soft, no mass, no hsm Skin- warm, dry Extremities Exam- normal capillary refill, normal inspection Neurological Exam- alert, awake, oriented Psych- normal mood, normal affect Assessment and Plan - Assessment and Plan (Free Text) Plan: Assessment: 82 y/o Female, well known to our service from previous multiple admissions, Hx of CAD, CHF, COPD , sent from [facility] of fever , cough . Found to be hypotensive on admission. CT of chest showed :Progressive consolidative changes/ atelectasis primarily affecting the left lower lobe. Patient was admitted with diagnosis of sepsis and started on IV antibiotics. Pulmonary and ID were consulted Her urine cx reported positive for E. Coli and blood cx positive for Corynebacter species Patient developed acute on chronic respiratory failure with hypoxemia and hypercapnia due to COPD and CHF exacerbation . She was placed on High Flow O2 via NC with very slow improvement CXR repeated 12/14 showed opacification of left hemithorax due to mucus plug She underwent bronchoscopy 12/16 that showed mucus plugs FIO2 decreased from 60% to 30% today; saturating well, still occasionaly tachypneic. CXR showed opacification on LLL Patient appears a bit more awake today. 1. Mucus Plugging s/p Bronchoscopy 12/16 -after total opacification of left hemithorax seen on CXR. Mucus suctioned out Still with SOB and poor air entry to left hemithorax , unable to expectorate, With weak cough Repeat CXR showed persistent Left lower lung consolidation and opacification Continue traditional Chest Physiotherapy q 4 Continue Duonebs and acetylcysteine INH , mucinex pulmonary following Discharge to LTAC on Hi Flow in AM; bronchoscopy would be difficult and high risk at this point as the patient is at the end stage of her disease. She is DNR/ DNI 2. Acute on Chronic Respiratory Failure Hypoxic, hyrpercapneic --- currently on high flow O2 unable to wean off sec to COPD and CHF plus PNA and Mucus plugging High Flow oxygen as above Continue Solumedrol 20 Mg IV daily Continue duonebs, IV antibiotics , lasix , diamox( increased dose ) pulmonary on consult 3. Sepsis secondary to Nosocomial left upper/lower lobe pneumonia, bacteremia and UTI Pt was hypotensive on admission, with leukocytosis, tachycardia urine cx positive for E. Coli Blood cx positive for Corynebacter species CXR showed LLL infiltrate Sputum cultures growing Streptomonas Maltophilia now ID Dr Mackay completed course of Meropenem vanco Started on Cipro 4.Acute on Chronic CHF, systolic and diastolic dysfunction, with minimally elevated troponin ECHO done last year showed EF 35%. Repeat Echo on previous admission showed normal EF on ARB and verapamil no BB due to COPD cont Lasix . Replace K 5. Hypokalemia secondary to diuretic use Replace with KCl Po 6. COPD exacerbation Continue Solumedrol 20 mg Iv daily Pulmonary on consult cont Albuterol neb tx with Mucomyst 7. UTI Urine c/s : ESBL E coli previous cultures showed ESBL E coli received full course of Meropenem as per ID 8. Troponin Elevation likely due to demand ischemia due to Sepsis Troponin now normal had elevated Trop on previous admission cont ASA LDL normal on previous admission no BB sec to COPD 9.Anemia of chronic disease Stable 10. 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 DM type II with hyperglycemia labile cont Levemir 12 units SQ Accucheck with coverage 12.Anxiety and depression on Temazepam and trazodone 13. Chronic pain on lidoderm patch to lower back, tramadol 14. Hypertension Continue Verapamil , Valsartan and lasix 15. DVT prophylaxis on Lovenox
[2017-12-24] MEDS: Insulin Detemir 100 Units/ml Inj SC SCH (22:44)
[2017-12-25] MEDS: Proshield Plus GEL TOP SCH ×2 (01:01→09:53)
[2017-12-25 06:05] LABS: HEMOGLOBIN 9.8 g/dL (12.0-16.0); MEAN CELL VOLUME 93.1 fl (81.0-99.0); MEAN CORPUSCULAR HEMOGLOBIN 30.1 pg (27.0-31.0); MEAN CORPUSCULAR HGB CONC 32.3 g/dL (33.0-37.0); RBC 3.26 Mil/uL (3.80-5.20); RED CELL DISTRIBUTION WIDTH 16.1 % (11.5-14.5)
[2017-12-25 06:25] LABS: BLOOD UREA NITROGEN 35 mg/dl (7-17); CALCIUM 9.1 mg/dL (8.4-10.2); GFR AFRICAN-AMERICAN > 60; GFR NON-AFRICAN AMERICAN 60
[2017-12-25] MEDS: Insulin Regular 100 units/ml SC SCH ×2 (06:45→12:28)
[2017-12-25] MEDS: Albuterol-Ipratrop 3 mg / 0.5 (3 ml) UD INH SCH ×4 (08:11→19:02)
[2017-12-25] MEDS: Acetylcysteine 20% Inhal Soln (4ml) INH SCH ×2 (08:11→19:02)
[2017-12-25 08:26] VITALS: RESP 20
--- NOTE | 2017-12-25 08:54 | CP.PCM.PN ---
Subjective - Date & Time of Evaluation Date of Evaluation: 12/25/17 Time of Evaluation: 08:54 - Subjective Subjective: She is seated up in bed, appears fatigued, but breathing a little better than yesterday. She is receiving treatment with the cough assist device, and I am told she has been able to raise some secretions with this regimen. She continues to receive aerosol therapy with bronchodiators and mucolytic as well. Her oxygenation has been okay with HFNC at 40LPM and 30% O2. Breath sounds are still absent in the LLL but more pronounced rhonchi are heard in the KADIE. There are scattered expiratory wheezes still present as well. Hopefully this treatment can be continued with more postural drainage and CPT at [facility]. There is some glimmer of hope with today's small but significant improvement. Objective - Vital Signs/Intake and Output Vital Signs (last 24 hours): Temp Pulse Resp BP Pulse Ox 96.9 F L 88 20 169/82 H 96 12/25/17 08:00 12/25/17 08:00 12/25/17 08:24 12/25/17 08:00 12/25/17 08:00 Intake and Output: 12/24/17 12/25/17 23:59 11:59 Intake Total 350 Output Total 850 Balance -500 - Medications Medications: Current Medications Acetaminophen (Tylenol 325mg Tab) 650 mg PO Q4H PRN PRN Reason: Pain, Mild (1-3) Last Admin: 12/14/17 18:07 Dose: 650 mg Acetaminophen (Tylenol 325mg Tab) 650 mg PO Q4H PRN PRN Reason: Temp >100 Acetylcysteine (Acetylcysteine 20%) 2 ml INH RBID [facility] Last Admin: 12/25/17 08:11 Dose: 2 ml Al Hydrox/Mg Hydrox/Simethicone (Maalox Plus 30 Ml) 30 ml PO Q4H PRN PRN Reason: heartburn/indigestion Albuterol Sulfate (Albuterol 0.083% Inhal Ro (2.5 Mg/3 Ml) Ud) 2.5 mg INH RQ4 PRN PRN Reason: Shortness of Breath Last Admin: 12/19/17 10:11 Dose: 2.5 mg Albuterol/Ipratropium (Duoneb 3 Mg/0.5 Mg (3 Ml) Ud) 3 ml INH RQID [facility] Last Admin: 12/25/17 08:11 Dose: 3 ml Aspirin (Ecotrin) 81 mg PO DAILY [facility] Last Admin: 12/24/17 09:43 Dose: 81 mg Calcium Carbonate (Oscal) 500 mg PO BID [facility] Last Admin: 12/24/17 17:54 Dose: 500 mg Dimethicone (Proshield Plus Skin Protectant) 1 applic TOP Q8 [facility] Last Admin: 12/25/17 01:01 Dose: 1 applic Enoxaparin Sodium (Lovenox) 40 mg SC DAILY [facility] PRN Reason: Protocol Last Admin: 12/24/17 09:45 Dose: 40 mg Furosemide (Lasix) 40 mg PO DAILY [facility] Last Admin: 12/24/17 09:45 Dose: 40 mg Guaifenesin (Mucinex La) 1,200 mg PO Q12 [facility] Last Admin: 12/24/17 20:42 Dose: 1,200 mg Ciprofloxacin (Cipro 400mg/200ml Dsw) 400 mg in 200 mls @ 200 mls/hr IVPB Q12 [facility] PRN Reason: Protocol Last Admin: 12/24/17 20:41 Dose: 200 mls/hr Insulin Detemir (Levemir) 12 units SC [facility] Last Admin: 12/24/17 22:44 Dose: 12 u Insulin Human Regular (Humulin R) 0 units SC ACCU-CHECK [facility] PRN Reason: Protocol Last Admin: 12/25/17 06:45 Dose: 3 units Lidocaine (Lidoderm) 1 ea TD DAILY [facility] Last Admin: 12/24/17 09:45 Dose: Not Given Magnesium Hydroxide (Milk Of Magnesia) 30 ml PO DAILY [facility] PRN Reason: Constipation Last Admin: 12/24/17 11:17 Dose: 30 ml Methylprednisolone (Solu-Medrol) 30 mg IVP BID [facility] Last Admin: 12/24/17 17:54 Dose: 30 mg Montelukast Sodium (Singulair) 10 mg PO HS [facility] Last Admin: 12/24/17 21:18 Dose: 10 mg Multivitamins/Minerals (Therapeutic-M Tab) 1 tab PO DAILY [facility] Last Admin: 12/24/17 09:47 Dose: 1 tab Pantoprazole Sodium (Protonix Ec Tab) 40 mg PO DAILY [facility] Last Admin: 12/24/17 09:44 Dose: 40 mg Silver Sulfadiazine (Silvadene 1% 20 Gm) 1 ea TOP QSHIFT [facility] Tramadol HCl (Ultram) 50 mg PO Q8H PRN PRN Reason: Pain, moderate (4-7) Last Admin: 12/15/17 10:53 Dose: 50 mg Valsartan (Diovan) 80 mg PO DAILY [facility] Last Admin: 12/24/17 09:43 Dose: 80 mg Verapamil HCl (Calan Sr Tab) 240 mg PO DAILY [facility] Last Admin: 12/24/17 09:44 Dose: 240 mg - Labs Labs: 12/25/17 05:34 12/25/17 05:34 PT 10.3 Seconds (9.8-13.1) 12/14/17 15:08 INR 0.9 (0.9-1.2) 12/14/17 15:08 APTT 27.7 Seconds (25.6-37.1) 12/14/17 15:08 Assessment and Plan (1) Hypercapnic respiratory failure, chronic Status: Chronic (2) Atelectasis, left Status: Acute (3) COPD (chronic obstructive pulmonary disease) Status: Chronic
[2017-12-25] MEDS: Ciprofloxacin 400mg/200ml D5W 400 MG/200 ML BAG IVPB SCH (09:41)
[2017-12-25] MEDS: Pantoprazole 40 mg EC Tab PO SCH (09:42)
[2017-12-25] MEDS: guaiFENesin 600 mg ER Tab PO SCH (09:42)
[2017-12-25] MEDS: Multivitamin With Minerals Tab PO SCH (09:42)
[2017-12-25] MEDS: Verapamil 240 mg ER Tab PO SCH (09:42)
[2017-12-25] MEDS: Enoxaparin 40 mg Syringe SC SCH (09:43)
[2017-12-25] MEDS: Lidocaine 5% Patch TD SCH (09:44)
[2017-12-25] MEDS: MethylPREDNISolone 40 mg Vial IVP SCH (09:53)
--- NOTE | 2017-12-25 11:50 | CP.PCM.PN ---
Subjective - Date & Time of Evaluation Date of Evaluation: 12/25/17 Time of Evaluation: 11:48 - Subjective Subjective: remained fatigue and tired CO 30 metabolic alkalosis corrected diamox was d/c yesterday keep eye on co2 Objective - Vital Signs/Intake and Output Vital Signs (last 24 hours): Temp Pulse Resp BP Pulse Ox 96.9 F L 88 20 169/82 H 96 12/25/17 08:00 12/25/17 09:42 12/25/17 08:24 12/25/17 09:52 12/25/17 08:00 Intake and Output: 12/25/17 12/25/17 06:59 18:59 Intake Total 350 Output Total 850 Balance -500 - Medications Medications: Current Medications Acetaminophen (Tylenol 325mg Tab) 650 mg PO Q4H PRN PRN Reason: Pain, Mild (1-3) Last Admin: 12/14/17 18:07 Dose: 650 mg Acetaminophen (Tylenol 325mg Tab) 650 mg PO Q4H PRN PRN Reason: Temp >100 Acetylcysteine (Acetylcysteine 20%) 2 ml INH RBID [facility] Last Admin: 12/25/17 08:11 Dose: 2 ml Al Hydrox/Mg Hydrox/Simethicone (Maalox Plus 30 Ml) 30 ml PO Q4H PRN PRN Reason: heartburn/indigestion Albuterol Sulfate (Albuterol 0.083% Inhal Ro (2.5 Mg/3 Ml) Ud) 2.5 mg INH RQ4 PRN PRN Reason: Shortness of Breath Last Admin: 12/19/17 10:11 Dose: 2.5 mg Albuterol/Ipratropium (Duoneb 3 Mg/0.5 Mg (3 Ml) Ud) 3 ml INH RQID [facility] Last Admin: 12/25/17 11:16 Dose: 3 ml Aspirin (Ecotrin) 81 mg PO DAILY [facility] Last Admin: 12/25/17 09:42 Dose: 81 mg Calcium Carbonate (Oscal) 500 mg PO BID [facility] Last Admin: 12/25/17 09:42 Dose: 500 mg Dimethicone (Proshield Plus Skin Protectant) 1 applic TOP Q8 [facility] Last Admin: 12/25/17 09:53 Dose: 1 applic Enoxaparin Sodium (Lovenox) 40 mg SC DAILY [facility] PRN Reason: Protocol Last Admin: 12/25/17 09:43 Dose: 40 mg Furosemide (Lasix) 40 mg PO DAILY [facility] Last Admin: 12/25/17 09:52 Dose: 40 mg Guaifenesin (Mucinex La) 1,200 mg PO Q12 [facility] Last Admin: 12/25/17 09:42 Dose: 1,200 mg Ciprofloxacin (Cipro 400mg/200ml Dsw) 400 mg in 200 mls @ 200 mls/hr IVPB Q12 [facility] PRN Reason: Protocol Last Admin: 12/25/17 09:41 Dose: 200 mls/hr Insulin Detemir (Levemir) 12 units SC HS [facility] Last Admin: 12/24/17 22:44 Dose: 12 u Insulin Human Regular (Humulin R) 0 units SC ACCU-CHECK [facility] PRN Reason: Protocol Last Admin: 12/25/17 06:45 Dose: 3 units Lidocaine (Lidoderm) 1 ea TD DAILY [facility] Last Admin: 12/25/17 09:44 Dose: 1 ea Magnesium Hydroxide (Milk Of Magnesia) 30 ml PO DAILY PRN PRN Reason: Constipation Last Admin: 12/24/17 11:17 Dose: 30 ml Methylprednisolone (Solu-Medrol) 30 mg IVP BID [facility] Last Admin: 12/25/17 09:53 Dose: 30 mg Montelukast Sodium (Singulair) 10 mg PO HS [facility] Last Admin: 12/24/17 21:18 Dose: 10 mg Multivitamins/Minerals (Therapeutic-M Tab) 1 tab PO DAILY [facility] Last Admin: 12/25/17 09:42 Dose: 1 tab Pantoprazole Sodium (Protonix Ec Tab) 40 mg PO DAILY [facility] Last Admin: 12/25/17 09:42 Dose: 40 mg Silver Sulfadiazine (Silvadene 1% 20 Gm) 1 ea TOP QSHIFT [facility] Tramadol HCl (Ultram) 50 mg PO Q8H PRN PRN Reason: Pain, moderate (4-7) Last Admin: 12/15/17 10:53 Dose: 50 mg Valsartan (Diovan) 80 mg PO DAILY [facility] Last Admin: 12/25/17 09:43 Dose: 80 mg Verapamil HCl (Calan Sr Tab) 240 mg PO DAILY [facility] Last Admin: 12/25/17 09:42 Dose: 240 mg - Labs Labs: 12/25/17 05:34 12/25/17 05:34 PT 10.3 Seconds (9.8-13.1) 12/14/17 15:08 INR 0.9 (0.9-1.2) 12/14/17 15:08 APTT 27.7 Seconds (25.6-37.1) 12/14/17 15:08 Assessment and Plan (1) Metabolic alkalosis Status: Acute
--- NOTE | 2017-12-25 12:23 | CP.PCM.PN ---
Subjective - Date & Time of Evaluation Date of Evaluation: 12/25/17 Time of Evaluation: 08:00 - Subjective Subjective: afeb on IV antibiotics rx in progress Objective - Vital Signs/Intake and Output Vital Signs (last 24 hours): Temp Pulse Resp BP Pulse Ox 96.9 F L 88 20 169/82 H 96 12/25/17 08:00 12/25/17 09:42 12/25/17 08:24 12/25/17 09:52 12/25/17 08:00 Intake and Output: 12/25/17 12/25/17 06:59 18:59 Intake Total 350 Output Total 850 Balance -500 - Medications Medications: Current Medications Acetaminophen (Tylenol 325mg Tab) 650 mg PO Q4H PRN PRN Reason: Pain, Mild (1-3) Last Admin: 12/14/17 18:07 Dose: 650 mg Acetaminophen (Tylenol 325mg Tab) 650 mg PO Q4H PRN PRN Reason: Temp >100 Acetylcysteine (Acetylcysteine 20%) 2 ml INH RBID [facility] Last Admin: 12/25/17 08:11 Dose: 2 ml Al Hydrox/Mg Hydrox/Simethicone (Maalox Plus 30 Ml) 30 ml PO Q4H PRN PRN Reason: heartburn/indigestion Albuterol Sulfate (Albuterol 0.083% Inhal Ro (2.5 Mg/3 Ml) Ud) 2.5 mg INH RQ4 PRN PRN Reason: Shortness of Breath Last Admin: 12/19/17 10:11 Dose: 2.5 mg Albuterol/Ipratropium (Duoneb 3 Mg/0.5 Mg (3 Ml) Ud) 3 ml INH RQID [facility] Last Admin: 12/25/17 11:16 Dose: 3 ml Aspirin (Ecotrin) 81 mg PO DAILY [facility] Last Admin: 12/25/17 09:42 Dose: 81 mg Calcium Carbonate (Oscal) 500 mg PO BID [facility] Last Admin: 12/25/17 09:42 Dose: 500 mg Dimethicone (Proshield Plus Skin Protectant) 1 applic TOP Q8 [facility] Last Admin: 12/25/17 09:53 Dose: 1 applic Enoxaparin Sodium (Lovenox) 40 mg SC DAILY [facility] PRN Reason: Protocol Last Admin: 12/25/17 09:43 Dose: 40 mg Furosemide (Lasix) 40 mg PO DAILY [facility] Last Admin: 12/25/17 09:52 Dose: 40 mg Guaifenesin (Mucinex La) 1,200 mg PO Q12 [facility] Last Admin: 12/25/17 09:42 Dose: 1,200 mg Ciprofloxacin (Cipro 400mg/200ml Dsw) 400 mg in 200 mls @ 200 mls/hr IVPB Q12 [facility] PRN Reason: Protocol Last Admin: 12/25/17 09:41 Dose: 200 mls/hr Insulin Detemir (Levemir) 12 units SC HS [facility] Last Admin: 12/24/17 22:44 Dose: 12 u Insulin Human Regular (Humulin R) 0 units SC ACCU-CHECK [facility] PRN Reason: Protocol Last Admin: 12/25/17 06:45 Dose: 3 units Lidocaine (Lidoderm) 1 ea TD DAILY [facility] Last Admin: 12/25/17 09:44 Dose: 1 ea Magnesium Hydroxide (Milk Of Magnesia) 30 ml PO DAILY PRN PRN Reason: Constipation Last Admin: 12/24/17 11:17 Dose: 30 ml Methylprednisolone (Solu-Medrol) 30 mg IVP BID [facility] Last Admin: 12/25/17 09:53 Dose: 30 mg Montelukast Sodium (Singulair) 10 mg PO HS [facility] Last Admin: 12/24/17 21:18 Dose: 10 mg Multivitamins/Minerals (Therapeutic-M Tab) 1 tab PO DAILY [facility] Last Admin: 12/25/17 09:42 Dose: 1 tab Pantoprazole Sodium (Protonix Ec Tab) 40 mg PO DAILY [facility] Last Admin: 12/25/17 09:42 Dose: 40 mg Silver Sulfadiazine (Silvadene 1% 20 Gm) 1 ea TOP QSHIFT [facility] Tramadol HCl (Ultram) 50 mg PO Q8H PRN PRN Reason: Pain, moderate (4-7) Last Admin: 12/15/17 10:53 Dose: 50 mg Valsartan (Diovan) 80 mg PO DAILY [facility] Last Admin: 12/25/17 09:43 Dose: 80 mg Verapamil HCl (Calan Sr Tab) 240 mg PO DAILY [facility] Last Admin: 12/25/17 09:42 Dose: 240 mg - Labs Labs: 12/25/17 05:34 12/25/17 05:34 PT 10.3 Seconds (9.8-13.1) 12/14/17 15:08 INR 0.9 (0.9-1.2) 12/14/17 15:08 APTT 27.7 Seconds (25.6-37.1) 12/14/17 15:08 - Constitutional Appears: Confused, Cachectic, Chronically Ill - Head Exam Head Exam: ATRAUMATIC, NORMOCEPHALIC - Eye Exam Eye Exam: EOMI, PERRL. absent: Scleral icterus - ENT Exam ENT Exam: Mucous Membranes Dry - Neck Exam Neck Exam: absent: Lymphadenopathy - Respiratory Exam Respiratory Exam: Decreased Breath Sounds, Rhonchi - Cardiovascular Exam Cardiovascular Exam: REGULAR RHYTHM, +S1, +S2 - GI/Abdominal Exam GI & Abdominal Exam: Distended, Soft. absent: Tenderness - Rectal Exam Rectal Exam: Deferred - Exam Exam: NORMAL INSPECTION - Extremities Exam Extremities Exam: absent: Pedal Edema - Back Exam Back Exam: absent: CVA tenderness (L), CVA tenderness (R) - Neurological Exam Neurological Exam: Alert, Altered, Awake - Psychiatric Exam Psychiatric exam: Depressed - Skin Skin Exam: Dry Assessment and Plan (1) Pneumonia Status: Acute (2) Dehydration Status: Acute (3) Diabetes Status: Acute (4) ESBL (extended spectrum beta-lactamase) producing bacteria infection Status: Acute - Assessment and Plan (Free Text) Assessment: cont iv rx as ordered
[2017-12-25 12:27] VITALS: BP 176/82; PULSE 99; TEMP 97.7; O2SAT 97
--- NOTE | 2017-12-25 17:42 | CP.PCM.DIS ---
Provider - Provider Date of Admission: 12/08/17 15:51 Attending physician: Lloyd Bain DO Primary care physician: Ratna Consults: Dr. Oscar- pulmonary Dr. Ingram- nephrology Dr. Mackay- ID Wound care Time Spent in preparation of Discharge (in minutes): 40 Hospital Course - Lab Results Lab Results: Micro Results 12/16/17 10:52 Other: Please Indicate Mycobacterial Culture - Preliminary 12/20/17 15:43 Sputum Gram Stain - Final 12/20/17 15:43 Sputum Sputum Culture - Final Stenotrophomonas Maltophilia 12/16/17 10:52 Bronchial Washings Bronchial Culture - Final Coagulase Neg Staphylococcus Kayley Albicans 12/08/17 17:34 Blood-Venous Blood Culture - Final NO GROWTH AFTER 5 DAYS 12/08/17 17:34 Blood-Venous Gram Stain - Final TEST NOT PERFORMED 12/08/17 17:24 Blood-Venous Blood Culture - Final Corynebacterium Species 12/08/17 17:24 Blood-Venous Gram Stain - Final 12/08/17 16:20 Urine Urine Culture - Final Escherichia Coli Most Recent Lab Values WBC 10.0 K/uL (4.8-10.8) 12/25/17 05:34 RBC 3.26 Mil/uL (3.80-5.20) L 12/25/17 05:34 Hgb 9.8 g/dL (12.0-16.0) L 12/25/17 05:34 Hct 30.3 % (34.0-47.0) L 12/25/17 05:34 MCV 93.1 fl (81.0-99.0) 12/25/17 05:34 MCH 30.1 pg (27.0-31.0) 12/25/17 05:34 MCHC 32.3 g/dL (33.0-37.0) L 12/25/17 05:34 RDW 16.1 % (11.5-14.5) H 12/25/17 05:34 Plt Count 314 K/uL (130-400) 12/25/17 05:34 MPV 7.5 fl (7.2-11.7) 12/08/17 14:30 Neut % (Auto) 87.4 % (50.0-75.0) H 12/08/17 14:30 Lymph % (Auto) 7.9 % (20.0-40.0) L 12/08/17 14:30 Coke % (Auto) 4.2 % (0.0-10.0) 12/08/17 14:30 Eos % (Auto) 0.1 % (0.0-4.0) 12/08/17 14:30 Baso % (Auto) 0.4 % (0.0-2.0) 12/08/17 14:30 Neut # 18.6 K/uL (1.8-7.0) H 12/08/17 14:30 Lymph # 1.7 K/uL (1.0-4.3) 12/08/17 14:30 Coke # 0.9 K/uL (0.0-0.8) H 12/08/17 14:30 Eos # 0.0 K/uL (0.0-0.7) 12/08/17 14:30 Baso # 0.1 K/uL (0.0-0.2) 12/08/17 14:30 Neutrophils % (Manual) 87 % (42-75) H 12/08/17 14:30 Band Neutrophils % 7 % (0-2) H 12/08/17 14:30 Lymphocytes % (Manual) 4 % (20-50) L 12/08/17 14:30 Monocytes % (Manual) 2 % (0-10) 12/08/17 14:30 Smudge Cells Present 12/08/17 14:30 Platelet Estimate Normal (NORMAL) 12/08/17 14:30 Hypochromasia (manual) Slight 12/08/17 14:30 Anisocytosis (manual) Slight 12/08/17 14:30 Ovalocytes Slight 12/08/17 14:30 PT 10.3 Seconds (9.8-13.1) 12/14/17 15:08 INR 0.9 (0.9-1.2) 12/14/17 15:08 APTT 27.7 Seconds (25.6-37.1) 12/14/17 15:08 pCO2 55 mm/Hg (35-45) H 12/23/17 04:58 pO2 65 mm/Hg (80-100) L 12/23/17 04:58 HCO3 31.6 mmol/L (21-28) H 12/23/17 04:58 ABG pH 7.41 (7.35-7.45) 12/23/17 04:58 ABG Total CO2 36.6 mmol/L (22-28) H 12/23/17 04:58 ABG O2 Saturation 95.8 % (95-98) 12/23/17 04:58 ABG O2 Content 14.6 ML/dL (15-23) L 12/23/17 04:58 ABG Base Excess 8.7 mmol/L (-2.0-3.0) H 12/23/17 04:58 ABG Hemoglobin 11.2 g/dL (11.7-17.4) L 12/23/17 04:58 ABG Carboxyhemoglobin 2.2 % (0.5-1.5) H 12/23/17 04:58 POC ABG HHb (Measured) 4.1 % (0.0-5.0) 12/23/17 04:58 ABG Methemoglobin 1.3 % (0.0-3.0) 12/23/17 04:58 ABG O2 Capacity 15.2 mL/dL (16-24) L 12/23/17 04:58 Roger Test Yes 12/23/17 04:58 VBG pH 7.41 (7.32-7.43) 12/08/17 14:08 VBG pCO2 80 mmHg (40-60) H* 12/08/17 14:08 VBG HCO3 41.7 mmol/L 12/08/17 14:08 VBG Total CO2 53.2 mmol/L (22-28) H 12/08/17 14:08 VBG O2 Sat (Calc) 92.8 % (40-65) H 12/08/17 14:08 VBG Base Excess 21.8 mmol/L (0.0-2.0) H 12/08/17 14:08 VBG Potassium 4.0 mmol/L (3.6-5.2) 12/08/17 14:08 Sodium 136.0 mmol/L (132-148) 12/08/17 14:08 Chloride 94.0 mmol/L (98-107) L 12/08/17 14:08 Glucose 52 mg/dL (65-105) L 12/08/17 14:08 Lactate 2.8 mmol/L (0.7-2.1) H 12/08/17 14:08 A-a O2 Difference 66.0 mm/Hg 12/23/17 04:58 Hgb O2 Saturation 92.4 % (95.0-98.0) L 12/23/17 04:58 Liter Flow 30 12/23/17 04:58 Vent Mode Hfov 12/23/17 04:58 FiO2 28.0 % 12/23/17 04:58 Blood Gas Comments [id number]/50% 12/12/17 10:48 Crit Value Called To Dr. oscar 12/14/17 08:00 Crit Value Called By 12/14/17 08:00 Crit Value Read Back Y 12/14/17 08:00 Blood Gas Notified Time 922 12/14/17 08:00 Sodium 139 mmol/l (132-148) 12/25/17 05:34 Potassium 4.6 MMOL/L (3.6-5.0) 12/25/17 05:34 Chloride 99 mmol/L (98-107) 12/25/17 05:34 Carbon Dioxide 30 mmol/L (22-30) 12/25/17 05:34 Anion Gap 15 (10-20) 12/25/17 05:34 BUN 35 mg/dl (7-17) H 12/25/17 05:34 Creatinine 0.9 mg/dl (0.7-1.2) 12/25/17 05:34 Est GFR ( Amer) > 60 12/25/17 05:34 Est GFR (Non-Af Amer) 60 12/25/17 05:34 POC Glucose (mg/dL) 341 mg/dL (65-110) H 12/25/17 10:53 Random Glucose 236 mg/dL (65-105) H 12/25/17 05:34 Calcium 9.1 mg/dL (8.4-10.2) 12/25/17 05:34 Magnesium 1.8 MG/DL (1.6-2.3) 12/15/17 11:41 Total Bilirubin 0.7 mg/dl (0.2-1.3) 12/08/17 14:30 AST 23 U/L (14-36) 12/08/17 14:30 ALT 32 U/L (9-52) 12/08/17 14:30 Alkaline Phosphatase 99 U/L (38-126) 12/08/17 14:30 Total Protein 5.9 G/DL (6.3-8.2) L 12/08/17 14:30 Troponin I 0.1070 ng/mL (0.00-0.120) 12/08/17 23:02 Albumin 3.1 g/dL (3.5-5.0) L 12/08/17 14:30 Globulin 2.8 gm/dL (2.2-3.9) 12/08/17 14:30 Albumin/Globulin Ratio 1.1 (1.0-2.1) 12/08/17 14:30 NT-Pro-B Natriuret Pep 1640 pg/ml (0-900) H 12/11/17 05:20 Venous Blood Potassium 4.0 mmol/L (3.6-5.2) 12/08/17 14:08 Urine Color Yellow (YELLOW) 12/08/17 16:20 Urine Clarity Slighty-cloudy (Clear) 12/08/17 16:20 Urine pH 8.0 (5.0-8.0) 12/08/17 16:20 Ur Specific Tyner 1.009 (1.003-1.030) 12/08/17 16:20 Urine Protein Negative mg/dL (NEGATIVE) 12/08/17 16:20 Urine Glucose (UA) Neg mg/dL (Normal) 12/08/17 16:20 Urine Ketones Negative mg/dL (NEGATIVE) 12/08/17 16:20 Urine Blood Negative (NEGATIVE) 12/08/17 16:20 Urine Nitrate Negative (NEGATIVE) 12/08/17 16:20 Urine Bilirubin Negative (NEGATIVE) 12/08/17 16:20 Urine Urobilinogen 0.2-1.0 mg/dL (0.2-1.0) 12/08/17 16:20 Ur Leukocyte Esterase Trace Aki/uL (Negative) 12/08/17 16:20 Urine RBC (Auto) 1 /hpf (0-3) 12/08/17 16:20 Urine Microscopic WBC 11 /hpf (0-5) H 12/08/17 16:20 Urine Bacteria Rare (<OCC) 12/08/17 16:20 Ur Random Sodium 145 meq/L 12/15/17 23:30 Ur Random Potassium 32.7 mmol/L 12/15/17 23:30 Vancomycin Trough 23.3 ug/mL (5.0-10.0) H 12/19/17 07:04 Influenza Typ A,B (EIA) Negative for flu a/b (NEGATIVE) 12/08/17 14:30 Ur L.pneumophila Ag Negative (NEGATIVE) 12/14/17 10:58 Mycoplasma pneumon IgG 2.42 (<=0.90) H 12/10/17 04:30 Mycoplasma pneumon IgM 45 U/mL (<770) 12/10/17 04:30 - Hospital Course Hospital Course: Assessment: 82 y/o Female, well known to our service from previous multiple admissions, Hx of CAD, CHF, COPD , sent from [facility] of fever , cough . Found to be hypotensive on admission. CT of chest showed :Progressive consolidative changes/ atelectasis primarily affecting the left lower lobe. Patient was admitted with diagnosis of sepsis and started on IV antibiotics. Pulmonary and ID were consulted Her urine cx reported positive for E. Coli and blood cx positive for Corynebacter species Patient developed acute on chronic respiratory failure with hypoxemia and hypercapnia due to COPD and CHF exacerbation . She was placed on High Flow O2 via NC with very slow improvement CXR repeated 12/14 showed opacification of left hemithorax due to mucus plug She underwent bronchoscopy 12/16 that showed mucus plugs FIO2 decreased from 60% to 30% today; saturating well, still occasionally tachypneic. Patient stabilized and is being discharged to [facility] in [place]. 1. Mucus Plugging s/p Bronchoscopy 12/16 -after total opacification of left hemithorax seen on CXR. Mucus suctioned out Still with SOB and poor air entry to left hemithorax , unable to expectorate, With weak cough Repeat CXR showed persistent Left lower lung consolidation and opacification Continue traditional Chest Physiotherapy q 4 Continue Duonebs and acetylcysteine INH , mucinex pulmonary following Discharge to LTAC ; bronchoscopy would be difficult and high risk at this point as the patient is at the end stage of her disease. She is DNR/ DNI 2. Acute on Chronic Respiratory Failure Hypoxic, hyrpercapneic --- currently on high flow O2 unable to wean off sec to COPD and CHF plus PNA and Mucus plugging High Flow oxygen as above Continue Solumedrol 20 Mg IV daily Continue duonebs, IV antibiotics , lasix , diamox( increased dose ) pulmonary on consult 3. Sepsis secondary to Nosocomial left upper/lower lobe pneumonia, bacteremia and UTI Pt was hypotensive on admission, with leukocytosis, tachycardia urine cx positive for E. Coli Blood cx positive for Corynebacter species CXR showed LLL infiltrate Sputum cultures growing Streptomonas Maltophilia now ID Dr Mackay completed course of Meropenem vanco Started on Cipro as per Dr. Mackay, ID 4.Acute on Chronic CHF, systolic and diastolic dysfunction, with minimally elevated troponin ECHO done last year showed EF 35%. Repeat Echo on previous admission showed normal EF on ARB and verapamil no BB due to COPD cont Lasix . Replace K 5. Hypokalemia secondary to diuretic use Replace with KCl Po 6. COPD exacerbation Continue Solumedrol 20 mg Iv daily Pulmonary on consult cont Albuterol neb tx with Mucomyst 7. UTI Urine c/s : ESBL E coli previous cultures showed ESBL E coli received full course of Meropenem as per ID 8. Troponin Elevation likely due to demand ischemia due to Sepsis Troponin now normal had elevated Trop on previous admission cont ASA LDL normal on previous admission no BB sec to COPD 9.Anemia of chronic disease Stable 10. 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 DM type II with hyperglycemia labile cont Levemir 12 units SQ Accucheck with coverage 12.Anxiety and depression on Temazepam and trazodone 13. Chronic pain on lidoderm patch to lower back, tramadol 14. Hypertension Continue Verapamil , Valsartan and lasix 15. DVT prophylaxis on Lovenox Discharge Exam - Head Exam Head Exam: ATRAUMATIC, NORMOCEPHALIC - Additional Findings Additional findings: Physical exam: Constitutional- cooperative, awake, alert, sitting up in bed, on Hi flow oxyten Head- NCAT, PERRL Eye- PERRL, EOMI ENT- normal exam, MMM. Neck- normal inspection, supple, no JVD Respiratory- CTAB, bilateral wheezing, scattered rhonchi, no rales Cardiovascular- RRR, +S1, +S2 no MRG GI/Abdominal- normal bowel sounds, soft, no mass, no hsm Skin- warm, dry Extremities Exam- normal capillary refill, normal inspection Neurological Exam- alert, awake, oriented Psych- normal mood, normal affect Discharge Plan - Follow Up Plan Condition: STABLE Disposition[facility]
== END 2017-12-25 15:00 | DRG 871 ==
LOC: H.ER 11:36 → H.ERHOLD 15:51 → H.TEL 23:20
PROVIDERS: ADMIT Internal Medicine; ATTEND Internal Medicine
PROC: 3E0F7GC Introduction of Other Therapeutic Substance into Respiratory Tract, Via Natural or Artificial Opening (ICD-10-PCS; 2017-12-08)
PROC: 0BC78ZZ Extirpation of Matter from Left Main Bronchus, Via Natural or Artificial Opening Endoscopic (ICD-10-PCS; 2017-12-16)
PROC: 0B978ZZ Drainage of Left Main Bronchus, Via Natural or Artificial Opening Endoscopic (ICD-10-PCS; principal; 2017-12-16 07:45)
DX: A41.89 Other specified sepsis (principal); J96.21 Acute and chronic respiratory failure with hypoxia; L89.132 Pressure ulcer of right lower back, stage 2; J10.08 Influenza due to other identified influenza virus with other specified pneumonia; T17.890A Other foreign object in other parts of respiratory tract causing asphyxiation, initial encounter; J12.1 Respiratory syncytial virus pneumonia; L89.151 Pressure ulcer of sacral region, stage 1; I50.43 Acute on chronic combined systolic (congestive) and diastolic (congestive) heart failure; E87.3 Alkalosis; L89.303 Pressure ulcer of unspecified buttock, stage 3; J96.22 Acute and chronic respiratory failure with hypercapnia; J44.0 Chronic obstructive pulmonary disease with (acute) lower respiratory infection; J44.1 Chronic obstructive pulmonary disease with (acute) exacerbation; J98.11 Atelectasis; N39.0 Urinary tract infection, site not specified; I95.9 Hypotension, unspecified; I11.0 Hypertensive heart disease with heart failure; J84.89 Other specified interstitial pulmonary diseases; E87.8 Other disorders of electrolyte and fluid balance, not elsewhere classified; E11.649 Type 2 diabetes mellitus with hypoglycemia without coma; E11.65 Type 2 diabetes mellitus with hyperglycemia; D63.8 Anemia in other chronic diseases classified elsewhere; B96.20 Unspecified Escherichia coli [E. coli] as the cause of diseases classified elsewhere; E03.9 Hypothyroidism, unspecified; E78.00 Pure hypercholesterolemia, unspecified; E86.0 Dehydration; E87.6 Hypokalemia; F32.9 Major depressive disorder, single episode, unspecified; F41.9 Anxiety disorder, unspecified; G89.29 Other chronic pain; I25.10 Atherosclerotic heart disease of native coronary artery without angina pectoris; I25.2 Old myocardial infarction; M06.9 Rheumatoid arthritis, unspecified; T50.2X5A Adverse effect of carbonic-anhydrase inhibitors, benzothiadiazides and other diuretics, initial encounter; Y95 Nosocomial condition; Z53.20 Procedure and treatment not carried out because of patient's decision for unspecified reasons; Z66 Do not resuscitate; Z79.4 Long term (current) use of insulin; Z79.82 Long term (current) use of aspirin; Z79.83 Long term (current) use of bisphosphonates; Z85.42 Personal history of malignant neoplasm of other parts of uterus; Z87.01 Personal history of pneumonia (recurrent); Z87.440 Personal history of urinary (tract) infections; Z87.891 Personal history of nicotine dependence; Z90.49 Acquired absence of other specified parts of digestive tract; Z90.710 Acquired absence of both cervix and uterus; Z99.81 Dependence on supplemental oxygen; D64.9 Anemia, unspecified; K29.70 Gastritis, unspecified, without bleeding; M19.90 Unspecified osteoarthritis, unspecified site; Z79.84 Long term (current) use of oral hypoglycemic drugs; Z79.899 Other long term (current) drug therapy; R00.0 Tachycardia, unspecified